=== PATIENT | female | born 1990 | race Caucasian/White ===

== ENCOUNTER 2020-07-20 12:40 | Outpatient (REF) | payer OTHER, SELFPAY ==
[2020-07-21 11:20] LABS: CT PCR NOT DETECTED (Not Detect.); NG PCR NOT DETECTED (Not Detect.)
== END 2020-07-20 12:41 | disposition home or self-care (01) ==
LOC: HO.LNP 12:40
PROVIDERS: PCP Internal Medicine; Referring Provider Internal Medicine; Visit Provider Advanced Practice Midwife
DX: Z01.419 Encounter for gynecological examination (general) (routine) without abnormal findings (principal); N94.6 Dysmenorrhea, unspecified; F17.210 Nicotine dependence, cigarettes, uncomplicated; Z11.8 Encounter for screening for other infectious and parasitic diseases; Z11.3 Encounter for screening for infections with a predominantly sexual mode of transmission
CPT/HCPCS: 87491; 87591

== ENCOUNTER 2020-09-17 12:48 | Outpatient (REF) | payer OTHER, SELFPAY ==
[2020-09-17 13:29] LABS: Basophils Absolute Auto 0.1 X10*3/uL (0.0-0.2); Basophils Percent Auto 0.8 % (0-2); Eosinophils Percent Auto 0.6 % (0-4); Hematocrit 36.9 % (37-47); Imm Gran Abs Auto 0.01 X10*3/uL (0.00-0.03); Imm Gran Pct Auto 0.2 % (0.0-0.4); Lymphocytes Absolute Auto 1.5 X10*3/uL (1.2-4.9); Lymphocytes Percent Auto 23.7 % (20-40); MANUAL DIFF FLAG NO; Mean Corpuscular HGB Conc 35.2 g/dl (31.0-35.0); Mean Corpuscular Hemoglobin 29.1 pg (27.0-33.0); Mean Corpuscular Volume 82.6 fL (80-98); Mean Platelet Volume 11.4 fL (9.4-12.3); Monocytes Absolute Auto 0.4 X10*3/uL (0.1-1.2); Monocytes Percent Auto 6.6 % (2-11); Neutrophils Absolute Auto 4.4 X10*3/uL (2.0-8.3); Neutrophils Percent Auto 68.1 % (45-73); Platelet Count 207 X10*3/uL (160-400); Red Blood Count 4.47 X10*6/uL (4.20-5.50); Red Cell Distribution Width 13.2 % (11.0-16.0); White Blood Count 6.5 X10*3/uL (4.8-10.8)
[2020-09-17 13:53] LABS: Alanine Aminotransferase 10 U/L (0-31); Albumin Level 4.6 g/dL (3.5-5.0); Alkaline Phosphatase 78 U/L (39-117); Anion Gap 10 (12-20); Aspartate Amino Transferase 12 U/L (5-31); Bilirubin Total 0.4 mg/dL (0.0-1.0); Blood Urea Nitrogen 8 mg/dL (9-16); Calcium 8.9 mg/dL (8.4-10.2); Carbon Dioxide 25 mmol/L (22-29); Chloride 111 mmol/L (96-108); Cholesterol 172 mg/dL; Estimated Glomerular Filt Rate > 60; Glucose Fasting 93 mg/dL (60-99); HDL Cholesterol 62 mg/dL; LDL Cholesterol Calculated 100 mg/dl; Potassium 3.8 mmol/l (3.3-5.1); Sodium 142 mmol/L (135-145); Total Protein 7.2 g/dL (6.5-8.0); Triglycerides 51 mg/dL
== END 2020-09-17 12:49 | disposition home or self-care (01) ==
LOC: HO.LAB 12:48
PROVIDERS: PCP Internal Medicine; Visit Provider Internal Medicine
DX: E11.9 Type 2 diabetes mellitus without complications (principal); Z00.00 Encounter for general adult medical examination without abnormal findings
CPT/HCPCS: 36415; 80053; 80061; 85025

== ENCOUNTER 2021-02-18 07:59 | Outpatient (REF) | payer OTHER, SELFPAY ==
[2021-02-18 15:15] LABS: CT PCR NOT DETECTED (Not Detect.); NG PCR NOT DETECTED (Not Detect.)
[2021-02-19 08:48] LABS: BV Int Neg Control Negative (Negative); BV Int Pos Control Positive (Positive)
== END 2021-02-18 08:00 | disposition home or self-care (01) ==
LOC: HO.LAB 07:59
PROVIDERS: PCP Internal Medicine; Visit Provider Advanced Practice Midwife
DX: R30.0 Dysuria (principal); R10.2 Pelvic and perineal pain; N89.8 Other specified noninflammatory disorders of vagina; F17.210 Nicotine dependence, cigarettes, uncomplicated
CPT/HCPCS: 81003; 81025; 87480; 87491; 87510; 87591; 87660; 99212

== ENCOUNTER 2021-04-30 20:51 | Emergency (ER) | payer OTHER, SELFPAY ==
--- NOTE | ~2021-04-30 | XR_ITS ---
EXAMINATION: XR ANKLE, RIGHT CLINICAL INFORMATION: Pain status post trauma COMPARISON: None TECHNIQUE: AP, lateral, and mortise views of the right ankle. FINDINGS: Mild anterior soft tissue swelling. The alignment is normal. No fracture, dislocation or acute osseous abnormalities. XR/XR ankle RT min 3V IMPRESSION: Mild soft tissue swelling. No acute fracture or dislocation is seen.
[2021-04-30 20:57] VITALS: BP 140/76; PULSE 92; RESP 18; TEMP 36.4; O2SAT 98; BMI 38.5
--- NOTE | 2021-04-30 22:08 | ED_ITS ---
HPI - Extremity Injury (Lower) General Chief Complaint: Extremity Injury, Lower Stated Complaint: ankle inj Time Seen by Provider: 04/30/21 21:55 Source: patient and other (hospitality workers) Mode of arrival: ambulatory Limitations: no limitations History of Present Illness complaint: ankle injury Onset (ago): minute(s) (Prior to arrival) Injury: Left: ankle Type of Injury: other (She was playing basketball and she twisted her ankle) Place: street/outdoors Severity: mild Relieving factors: nothing Exacerbating factors: weight bearing, movement and palpation Context: jumping Associated symptoms: swelling Other symptoms: none Related Data Home Medications Medication Instructions Recorded Confirmed ibuprofen 600 mg tablet 600 mg PO TID 07/03/20 02/18/21 ondansetron 8 mg disintegrating mg PO 07/03/20 02/18/21 tablet ondansetron HCl 4 mg tablet mg PO 07/03/20 02/18/21 oxcarbazepine 600 mg tablet 600 mg PO BID 07/03/20 02/18/21 psyllium husk (with sugar) 3.4 PO 07/03/20 02/18/21 gram/12 gram oral powder sumatriptan succinate 50 mg tablet mg PO 07/03/20 02/18/21 topiramate 25 mg tablet 25 mg PO BID 07/03/20 02/18/21 trazodone 300 mg tablet 300 mg PO BEDTIME 07/03/20 02/18/21 Previous Rx's Medication Instructions Recorded multivitamin 1 tab PO DAILY #90 tab 08/17/20 naproxen sodium 550 mg tablet 550 mg PO BID PRN #30 tab 09/16/20 norethindrone (contraceptive) 0.35 0.35 mg PO DAILY #28 tab 09/16/20 mg tablet albuterol sulfate 90 mcg/actuation 2 puff INHALATION Q4-6H PRN #8.5 g 12/10/20 aerosol inhaler fluconazole 150 mg tablet 150 mg PO ONCE PRN 1 Days #1 tab 02/18/21 (Diflucan) loratadine 10 mg tablet 10 mg PO DAILY #90 tab 04/27/21 omeprazole 40 mg capsule,delayed 40 mg PO DAILY #90 cap 04/27/21 release albuterol sulfate 2.5 mg INHALATION Q6-8H #75 ml 04/28/21 Allergies Allergy/AdvReac Type Severity Reaction Status Date / Time sulindac [SULINDAC] Allergy Severe SWELLING Verified 04/30/21 20:57 amoxicillin [AMOXICILLIN] Allergy Unknown ANAPHYLAXIS, Verified 04/30/21 20:57 swelling, swelling penicillin G Allergy Unknown swelling Verified 04/30/21 20:57 penicillin V Allergy Unknown swelling Verified 04/30/21 20:57 Penicillins [PENICILLINS] Allergy Unknown ANAPHYLAXIS Verified 04/30/21 20:57 polyethylene glycol 3350 Allergy Unknown ANAPHYLAXIS Verified 04/30/21 20:57 [From MIRALAX] senna Allergy Unknown Unknown Verified 04/30/21 20:57 Review of Systems Review of Systems: Constitutional : No changes in activity, No lethargy, No recent prior head injury, No agitation, No increased fussiness ENT/Mouth : No Ear Pain, No Nasal discharge/drainage Eyes: No Eye Pain, No Swelling, No Redness, No Foreign Body, No Vision Changes Cardiovascular : No Chest Pain, No SOB Respiratory : No Cough Gastrointestinal : No Nausea, No Vomiting, No abdominal Pain Genitourinary : No Dysuria, No Urinary Frequency, No Urinary Incontinence, No Urgency, No Flank Pain Musculoskeletal : + joint pain, No neck stiffness, No back pain/injury Skin : No lacerations Neuro : No unsteady gait, No Paresthesias, No Loss of Consciousness, No altered mental status, No Headache Yes all other systems are reviewed and are negative REPLACED BY [facility] Past Medical History Attestation statement: The following information was validated with the patient. Medical History ADHD Anxiety Asthma Benign tumor of breast Depression Dysmenorrhea Mood disorder Prosthetic eye globe Smoker Surgical History History of benign neoplasm of breast History of eye surgery Family History Family History Mother No problems noted. Father No problems noted. Brother No problems noted. Brother No problems noted. Maternal Aunt Breast cancer Social History Social History Alcohol intake: never Cigarettes Per Day: 15 Advance Directives: No Advance Directives Information Provided: Yes Patient : No Gender identity: female Physical Exam Vital Signs: Vital Signs: Last Vital Signs Temp 97.6 F 04/30/21 20:57 Pulse 92 04/30/21 20:57 Resp 18 04/30/21 20:57 BP 140/76 H 04/30/21 20:57 Pulse Ox 98 04/30/21 20:57 Body Mass Index 38.5 vital signs have been reviewed as normal and appeared to be correct. Blood pressure normal. Heart rate normal. Respiration rate normal. Temperature normal. Oxygen saturation normal. Appearance: Alert. Oriented X3. No acute distress. Head: Normal external exam. Normocephalic. Atraumatic. Eyes: PERRLA. EOMI. Conjunctiva and sclera normal. Eyelids normal. ENT:Pharynx normal. Uvula midline. Moist mucous membranes. Neck: Normal inspection. Neck supple. FROM. CVS: Normal heart rate and rhythm. Respiratory: No respiratory distress. Painless inspiration. Back: Full range of motion noted. No rashes/lesion/induration/fluctuance or signs of infection noted. Skin: Skin warm and dry. Normal skin color. Normal skin turgor. No rashes/lesions/lacerations noted. Extremities: Patient with tenderness to palpation to right ankle at the lateral malleolus with mild soft tissue swelling. No obvious ligamentous laxity is noted. No obvious deformities noted. Otherwise all other extremities normal range of motion and nontender. Neuro: Oriented X 3. No motor deficit. No sensory deficit. Reflexes normal. Normal steady gait. No focal neuro deficits noted. Vascular: + radial pulses/+ 2 distal pedal pulses/+2 dorsalis pedis b/l. Normal cap refill. No cyanosis noted to upper extremity nails and lower extremity toes nails. Course Course Course Narrative: Patient coming from senior living with staff worker at bedside with complaints of right ankle pain/swelling after she twisted her foot ankle/foot while playing basketball outdoors prior to arrival. Denies head injury or loss of consciousness. Is able to ambulate without any difficulty. X-ray obtained and negative for any acute processes. Therefore I placed the patient in Bartolome wrap and will DC home with instructions return if any new or worsening symptoms to follow up with Orthopedics if not persist for longer than 2-3 weeks. She reports she already has Motrin and does not need any other symptomatic treatment. Along instructions to return if any new or worsening symptoms and patient understands agrees with this plan. Discharge Plan Discharge Clinical Impression: Ankle sprain and strain Patient Disposition: Home, Self-Care Instructions: Ankle Sprain (ED), How to Use an Elastic Bandage (ED) Prescriptions: No Action multivitamin Tablet 1 tab PO DAILY Qty: 90 RF: 8 naproxen sodium 550 mg tablet 550 mg PO BID PRN (Reason: pain) Qty: 30 RF: 1 norethindrone (contraceptive) 0.35 mg tablet 0.35 mg PO DAILY Qty: 28 RF: 11 albuterol sulfate 90 mcg/actuation HFA aerosol inhaler 2 puff inhalation Q4-6H PRN (Reason: bronchospasm) Qty: 8.5 RF: 8 omeprazole 40 mg capsule,delayed release(DR/EC) 40 mg PO DAILY Qty: 90 RF: 8 loratadine 10 mg tablet 10 mg PO DAILY Qty: 90 RF: 8 albuterol sulfate 2.5 mg /3 mL (0.083 %) solution for nebulization 2.5 mg inhalation Q6-8H Qty: 75 RF: 8 ibuprofen 600 mg tablet 600 mg PO TID RF: 0 topiramate 25 mg tablet 25 mg PO BID RF: 0 ondansetron HCl 4 mg tablet PO RF: 0 ondansetron 8 mg tablet,disintegrating PO RF: 0 trazodone 300 mg tablet 300 mg PO BEDTIME RF: 0 oxcarbazepine 600 mg tablet 600 mg PO BID RF: 0 sumatriptan succinate 50 mg tablet PO RF: 0 Reguloid (psyllium husk-sucro) 3.4 gram/12 gram powder PO RF: 0 fluconazole [Diflucan] 150 mg tablet 150 mg PO ONCE PRN (Reason: personal) 1 Days Qty: 1 RF: 0 Referrals: Imani Drew MD [Physician] - 2 weeks (If symptoms persist)
== END 2021-04-30 22:18 | disposition home or self-care (01) ==
PROVIDERS: Emergency Provider Emergency Medicine Emergency Medical Services; PCP Internal Medicine
DX: S93.401A Sprain of unspecified ligament of right ankle, initial encounter (principal); S96.911A Strain of unspecified muscle and tendon at ankle and foot level, right foot, initial encounter; X50.1XXA Overexertion from prolonged static or awkward postures, initial encounter; Y93.67 Activity, basketball; Y92.310 Basketball court as the place of occurrence of the external cause; Y99.9 Unspecified external cause status
CPT/HCPCS: 73610; 99283

== ENCOUNTER 2021-07-06 10:42 | Outpatient (REF) | payer OTHER, SELFPAY ==
[2021-07-06 11:52] LABS: MANUAL DIFF FLAG NO
[2021-07-06 12:05] LABS: Basophils Percent Auto 0.6 % (0-2); Eosinophils Absolute Auto 0.1 X10*3/uL (0.0-0.4); Eosinophils Percent Auto 0.8 % (0-4); Hematocrit 37.6 % (37-47); Hemoglobin 12.6 g/dl (12.0-16.0); Imm Gran Abs Auto 0.01 X10*3/uL (0.00-0.03); Imm Gran Pct Auto 0.2 % (0.0-0.4); Lymphocytes Absolute Auto 1.5 X10*3/uL (1.2-4.9); Lymphocytes Percent Auto 24.4 % (20-40); Mean Corpuscular HGB Conc 33.5 g/dl (31.0-35.0); Mean Corpuscular Volume 83.6 fL (80-98); Mean Platelet Volume 11.4 fL (9.4-12.3); Monocytes Absolute Auto 0.4 X10*3/uL (0.1-1.2); Monocytes Percent Auto 6.3 % (2-11); Neutrophils Absolute Auto 4.2 X10*3/uL (2.0-8.3); Neutrophils Percent Auto 67.7 % (45-73); Platelet Count 202 X10*3/uL (160-400); Red Cell Distribution Width 13.1 % (11.0-16.0); White Blood Count 6.2 X10*3/uL (4.8-10.8)
[2021-07-06 12:25] LABS: Alanine Aminotransferase 10 U/L (0-31); Anion Gap 12 (12-20); Aspartate Amino Transferase 14 U/L (5-31); Blood Urea Nitrogen 12 mg/dL (9-16); Calcium 9.1 mg/dL (8.4-10.2); Carbon Dioxide 23 mmol/L (22-29); Chloride 110 mmol/L (96-108); Cholesterol 197 mg/dL; Estimated Glomerular Filt Rate > 60; Glucose Fasting 87 mg/dL (60-99); HDL Cholesterol 63 mg/dL; LDL Cholesterol Calculated 122 mg/dl; Potassium 4.1 mmol/L (3.3-5.1); Sodium 141 mmol/L (135-145); Triglycerides 64 mg/dL
== END 2021-07-06 10:43 | disposition home or self-care (01) ==
LOC: HO.HMGCLDS 10:42
PROVIDERS: PCP Internal Medicine; Visit Provider Internal Medicine
DX: Z00.00 Encounter for general adult medical examination without abnormal findings (principal); E66.9 Obesity, unspecified; I10 Essential (primary) hypertension
CPT/HCPCS: 36415; 80048; 80061; 84450; 84460; 85025

== ENCOUNTER 2021-07-26 12:51 | Outpatient (REF) | payer OTHER, SELFPAY ==
[2021-07-27 02:34] LABS: CT PCR NOT DETECTED (Not Detect.); NG PCR NOT DETECTED (Not Detect.)
[2021-07-27 09:24] LABS: BV Int Neg Control Negative (Negative); BV Int Pos Control Positive (Positive)
== END 2021-07-26 12:52 | disposition home or self-care (01) ==
LOC: HO.LAB 12:51
PROVIDERS: PCP Internal Medicine; Visit Provider Advanced Practice Midwife
DX: Z01.411 Encounter for gynecological examination (general) (routine) with abnormal findings (principal); Z11.3 Encounter for screening for infections with a predominantly sexual mode of transmission; N89.8 Other specified noninflammatory disorders of vagina; N94.6 Dysmenorrhea, unspecified; Z20.2 Contact with and (suspected) exposure to infections with a predominantly sexual mode of transmission
CPT/HCPCS: 87480; 87491; 87510; 87591; 87660; 88142

== ENCOUNTER → 2021-09-09 11:53 | Outpatient (BNVA) | payer OTHER, SELFPAY | PROVIDERS: PCP Internal Medicine; Visit Provider Obstetrics & Gynecology | DX: Z30.430 Encounter for insertion of intrauterine contraceptive device (principal) | CPT/HCPCS: 58300 ==

== ENCOUNTER → 2021-10-07 14:31 | Outpatient (BNVA) | payer OTHER, SELFPAY | PROVIDERS: PCP Internal Medicine; Visit Provider Obstetrics & Gynecology | DX: Z30.431 Encounter for routine checking of intrauterine contraceptive device (principal) | CPT/HCPCS: 99212 ==

== ENCOUNTER 2021-11-29 13:09 | Outpatient (REF) | payer OTHER, SELFPAY ==
[2021-11-29 17:21] LABS: CT PCR NOT DETECTED (Not Detect.); NG PCR NOT DETECTED (Not Detect.)
[2021-11-30 09:45] LABS: BV Int Neg Control Negative (Negative); BV Int Pos Control Positive (Positive)
== END 2021-11-29 13:10 | disposition home or self-care (01) ==
LOC: HO.LAB 13:09
PROVIDERS: PCP Internal Medicine; Visit Provider Advanced Practice Midwife
DX: R10.2 Pelvic and perineal pain (principal); T83.32XA Displacement of intrauterine contraceptive device, initial encounter; R30.0 Dysuria; Z20.2 Contact with and (suspected) exposure to infections with a predominantly sexual mode of transmission; N89.8 Other specified noninflammatory disorders of vagina
CPT/HCPCS: 81003; 81025; 87480; 87491; 87510; 87591; 87660; 99212

== ENCOUNTER 2021-12-30 13:22 | Emergency (ER) | payer OTHER, SELFPAY ==
[2021-12-30 14:34] VITALS: BP 158/92; PULSE 82; RESP 18; TEMP 36.5; O2SAT 100; BMI 34.2
--- NOTE | 2021-12-30 15:44 | ED_ITS ---
HPI - Head Injury General Chief complaint: Head Injury Stated complaint: head inj at program Time Seen by Provider: 12/30/21 14:40 History of Present Illness HPI Narrative: Patient comes with complaint of bumping or forehead this morning in her retirement, it is required that any head injury gets checked but she denies any symptoms she has no headache no dizziness no confusion, she did feel dizzy briefly right after the head bump which was for 5 hours ago Related Data Home Medications Medication Instructions Recorded Confirmed sumatriptan succinate 50 mg tablet mg PO 07/03/20 10/14/21 trazodone 300 mg tablet 300 mg PO BEDTIME 07/03/20 10/14/21 polyvinyl alcohol 1.4 % eye drops drp OPHTHALMIC (EYE) 07/06/21 10/14/21 (Artificial Tears (polyvinyl alcohol)) topiramate 50 mg tablet 50 mg PO BID 07/06/21 10/14/21 melatonin 5 mg tablet 5 mg PO BEDTIME 07/26/21 10/14/21 oxcarbazepine 600 mg tablet 600 mg PO BID 07/26/21 10/14/21 (Trileptal) levonorgestrel 20 mcg/24 hours (7 INTRAUTERINE DAILY 11/29/21 yrs) 52 mg intrauterine device (Mirena) Previous Rx's Medication Instructions Recorded albuterol sulfate 90 mcg/actuation 2 puff INHALATION Q4-6H PRN #8.5 g 12/10/20 aerosol inhaler loratadine 10 mg tablet 10 mg PO DAILY #90 tab 04/27/21 omeprazole 40 mg capsule,delayed 40 mg PO DAILY #90 cap 04/27/21 release albuterol sulfate 2.5 mg (3 mL) INHALATION Q6-8H #75 04/28/21 ml ondansetron 8 mg disintegrating 8 mg PO ONCE #30 tab 07/05/21 tablet dextromethorphan-guaifenesin 5 10 ml PO Q8H PRN #118 ml 07/06/21 mg-100 mg/5 mL oral liquid (Robitussin Cough-Chest Congestion DM) dimenhydrinate 50 mg tablet 50 mg PO .qd PRN #30 tab 07/06/21 (Dramamine) naproxen sodium 550 mg tablet 550 mg PO BID PRN #30 tab 07/26/21 multivitamin 1 tab PO DAILY #90 tab 08/17/21 psyllium husk (with sugar) 3 1 tsp PO DAILY #538 g 12/25/21 gram/7 gram oral powder (Reguloid (psyllium husk-sucrose)) Allergies Allergy/AdvReac Type Severity Reaction Status Date / Time amoxicillin [AMOXICILLIN] Allergy Severe ANAPHYLAXIS, Verified 12/30/21 14:34 swelling, swelling Penicillins [PENICILLINS] Allergy Severe ANAPHYLAXIS Verified 12/30/21 14:34 polyethylene glycol 3350 Allergy Severe ANAPHYLAXIS Verified 12/30/21 14:34 [From MIRALAX] sulindac [SULINDAC] Allergy Severe SWELLING Verified 12/30/21 14:34 senna Allergy Unknown Unknown Verified 11/29/21 13:12 Review of Systems Review of Systems: Positive for brief episode of dizziness after bumping her head Negatives are no loss of consciousness no headache no confusion no dazed no retrograde amnesia no nausea no vomiting no vision changes no neck pain no shortness of breath no extremity pains or injuries no numbness weakness or tingling Yes all other systems are reviewed and are negative PMFSH Past Medical History Source: nursing notes reviewed Medical History Asthma Benign tumor of breast Cigarette smoker motivated to quit Depression Depression with anxiety Dysmenorrhea Encounter for smoking cessation counseling Ex-cigarette smoker Heel callus History of cigarette smoking Migraine Mild intellectual disability Mild intermittent asthma in adult without complication Motion sickness Need for pneumococcal vaccination Obesity Porcelain gallbladder Prosthetic eye globe Smoker Surgical History History of benign neoplasm of breast History of eye surgery Family History Family History Mother No problems noted. Father No problems noted. Brother No problems noted. Brother No problems noted. Maternal Aunt Breast cancer Social History Social History Housing: Apartment Alcohol intake: never Patient Tobacco Use Status: Former Tobacco user Tobacco use type: Cigarette Cigarettes Per Day: 0 e-Cigarette/Vaping Use: Never Used Second Hand Smoke Exposure: No Advance Directives: No Advance Directives Information Provided: No Patient : No service: No 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al status: disabled Gender identity: Female Physical Exam Vital Signs: Vital Signs: Last Vital Signs Temp 97.7 F 12/30/21 14:34 Pulse 82 12/30/21 14:34 Resp 18 12/30/21 14:34 BP 141/84 H 12/30/21 15:51 Pulse Ox 100 12/30/21 14:34 BMI result Body Mass Index 34.2 General appearance comfortable relax cooperative no acute distress Head is normocephalic atraumatic The ears no hemotympanum The eyes pupils equal round reactive to light Extraocular motions are intact Facial exam there is no significant tenderness or bruising on the forehead Scalp exam there are no defects no hematomas Neck is supple Respiratory no distress Extremities full range of motion x4 Neuro cranial nerves 2-12 intact as tested, gait and balance are normal, interaction both expression and comprehension are normal, motor is 5/5 x4, and cessation is intact and symmetrical, cerebellar exam is normal Course Course Course Narrative: Well-appearing asymptomatic patient all negative per [facility] head CT rule is discharged Discharge Plan Discharge Clinical Impression: Contusion of forehead, Elevated blood pressure reading Patient Disposition: Home, Self-Care Additional Instructions: There is no sign of any dangerous head injury or brain bleed Your blood pressure was elevated here so it is a good plan to check it with a cuff at home and follow with primary doctor to make sure you will not developed high blood pressure One reading in the ER is often elevated because of stress so best plan is to get it checked and a calm environment Return to ER any time for vomiting, severe worsening headache, confusion any worse condition or any concerns Prescriptions: No Action albuterol sulfate 90 mcg/actuation HFA aerosol inhaler 2 puff inhalation Q4-6H PRN (Reason: bronchospasm) Qty: 8.5 8RF omeprazole 40 mg capsule,delayed release(DR/EC) 40 mg PO DAILY Qty: 90 8RF loratadine 10 mg tablet 10 mg PO DAILY Qty: 90 8RF albuterol sulfate 2.5 mg /3 mL (0.083 %) solution for nebulization 2.5 mg inhalation Q6-8H Qty: 75 8RF ondansetron 8 mg tablet,disintegrating 8 mg PO ONCE Qty: 30 8RF multivitamin Tablet 1 tab PO DAILY Qty: 90 3RF Reguloid (psyllium husk-sucro) 3 gram/7 gram powder 1 tsp PO DAILY Qty: 538 0RF trazodone 300 mg tablet 300 mg PO BEDTIME 0RF sumatriptan succinate 50 mg tablet PO 0RF topiramate 50 mg tablet 50 mg PO BID 0RF polyvinyl alcohol [Artificial Tears (polyvin alc)] 1.4 % drops ophthalmic (eye) 0RF dimenhydrinate [Dramamine] 50 mg tablet 50 mg PO .qd PRN (Reason: motion sickness) Qty: 30 0RF Robitussin Cough-Chest Robin DM 5-100 mg/5 mL liquid 10 ml PO Q8H PRN (Reason: cough) Qty: 118 1RF melatonin 5 mg tablet 5 mg PO BEDTIME 0RF oxcarbazepine [Trileptal] 600 mg tablet 600 mg PO BID 0RF naproxen sodium 550 mg tablet 550 mg PO BID PRN (Reason: pain) Qty: 30 1RF Rx Instructions: take one tablet BID for the first few days of cramping with menses, then stop. Repeat as needed each cycle Mirena 20 mcg/24 hours (7 yrs) 52 mg intrauterine device intrauterine DAILY 0RF Interventions: ED Discharge Assessment Last Done: 12/30/21 16:07 Discharge Date/Time: 12/30/21 16:07
[2021-12-30 15:51] VITALS: BP 141/84
== END 2021-12-30 16:07 | disposition home or self-care (01) ==
LOC: HO.ED 15:50
PROVIDERS: Emergency Provider Emergency Medicine; PCP Internal Medicine
DX: S00.83XA Contusion of other part of head, initial encounter (principal); W22.8XXA Striking against or struck by other objects, initial encounter; R03.0 Elevated blood-pressure reading, without diagnosis of hypertension; Y93.9 Activity, unspecified; Y92.049 Unspecified place in boarding-house as the place of occurrence of the external cause; Y99.9 Unspecified external cause status
CPT/HCPCS: 99282; 99284

== ENCOUNTER 2021-12-31 15:26 | Outpatient (REF) | payer OTHER, SELFPAY ==
--- NOTE | ~2021-12-31 | US_ITS ---
EXAMINATION: US PELVIS CLINICAL INFORMATION: Check IUD COMPARISON: None previous CT of the abdomen and pelvis August 2019 TECHNIQUE: Ultrasound of the pelvis is performed using both transabdominal and transvaginal transducers along with Doppler. Transvaginal imaging is performed due to inadequate visualization transabdominally. FINDINGS: The uterus is anteverted and measures 7.4 x 3.4 x 5 cm in dimension. There is an IUD in the uterus and satisfactory position. The endometrium is not well visualized separate from the IUD but does not appear thickened. No focal uterine lesion is seen. The right ovary is slightly enlarged measuring 4.6 x 1.9 x 4.7 cm. There is a 2.5 x 2.6 x 2.5 cm slightly complex right ovarian cyst with slightly thickened wall and peripheral septations. The left ovary is normal-appearing and measures 3.6 x 1.7 x 1.6 cm. There is a small amount of fluid in the pelvis. US/US pelvic and transvaginal IMPRESSION: Satisfactory position of IUD.
== END 2021-12-31 15:27 | disposition home or self-care (01) ==
LOC: HO.US 15:26
PROVIDERS: PCP Internal Medicine; Visit Provider Advanced Practice Midwife
DX: R10.2 Pelvic and perineal pain (principal)
CPT/HCPCS: 76830; 76856

== ENCOUNTER → 2022-01-14 10:48 | Outpatient (BNVA) | payer OTHER, SELFPAY | PROVIDERS: PCP Internal Medicine; Visit Provider Advanced Practice Midwife | DX: N83.299 Other ovarian cyst, unspecified side (principal); R10.2 Pelvic and perineal pain; Z71.2 Person consulting for explanation of examination or test findings | CPT/HCPCS: 99212 ==

== ENCOUNTER 2022-04-27 10:48 | Outpatient (REF) | payer OTHER, SELFPAY ==
--- NOTE | ~2022-04-27 | US_ITS ---
EXAMINATION: US PELVIS CLINICAL INFORMATION: Ovarian cyst. COMPARISON: None. TECHNIQUE: Ultrasound of the pelvis is performed using both transabdominal and transvaginal transducers along with Doppler. Transvaginal imaging is performed due to inadequate visualization transabdominally. FINDINGS: UTERUS: The uterus is anteverted and measures 10.0 x 4.2 x 4.7 cm. The double wall endometrial thickness is not visualized due to IUD in place. The uterus is smooth in contour and has normal myometrial echogenicity. No visible fibroid. There is minimal fluid in the cervix. ADNEXA: Both ovaries are visualized. There is normal color flow to the adnexa. There is no ovarian torsion. There is no pelvic ascites or fluid collection. RIGHT OVARY: Measures 3.9 x 1.3 x 2.0 cm and volume 5.3 mL. No focal lesion seen. Previously it measured 4.6 x 1.9 x 4.7 cm. LEFT OVARY: Measures 2.5 x 1.4 x 1.5 cm and volume 2.8 mL. No focal lesion seen. Previously it measured 3.6 x 1.7 x 1.6 cm. US/US pelvic and transvaginal IMPRESSION: Minimal fluid in the cervix otherwise unremarkable uterus and ovaries. There is an IUD within the endometrial canal in correct position.
== END 2022-04-27 10:49 | disposition home or self-care (01) ==
LOC: HO.US 10:48
PROVIDERS: Visit Provider Advanced Practice Midwife
DX: N83.291 Other ovarian cyst, right side (principal)
CPT/HCPCS: 76830; 76856

== ENCOUNTER → 2022-05-11 15:28 | Outpatient (BNVA) | payer OTHER, SELFPAY | PROVIDERS: PCP Internal Medicine; Visit Provider Advanced Practice Midwife | DX: Z71.2 Person consulting for explanation of examination or test findings (principal); R10.2 Pelvic and perineal pain | CPT/HCPCS: 99212 ==

== ENCOUNTER 2022-07-07 14:06 | Outpatient (REF) | payer OTHER, SELFPAY ==
[2022-07-08 10:25] LABS: BV Int Neg Control Negative (Negative); BV Int Pos Control Positive (Positive)
== END 2022-07-07 14:07 | disposition home or self-care (01) ==
LOC: HO.LNP 14:06
PROVIDERS: Visit Provider Internal Medicine
DX: R30.0 Dysuria (principal); N89.8 Other specified noninflammatory disorders of vagina
CPT/HCPCS: 87480; 87510; 87660

== ENCOUNTER 2022-07-27 13:59 | Outpatient (REF) | payer OTHER, SELFPAY ==
[2022-07-27 16:51] LABS: Alanine Aminotransferase 10 U/L (0-31); Anion Gap 14 (12-20); Aspartate Amino Transferase 13 U/L (5-31); Blood Urea Nitrogen 8 mg/dL (9-16); Calcium 9.3 mg/dL (8.4-10.2); Carbon Dioxide 22 mmol/L (22-29); Chloride 111 mmol/L (96-108); Cholesterol 200 mg/dL; Estimated Glomerular Filt Rate > 60; Glucose Fasting 79 mg/dL (60-99); HDL Cholesterol 66 mg/dL; LDL Cholesterol Calculated 120 mg/dl; Potassium 3.9 mmol/L (3.3-5.1); Sodium 143 mmol/L (135-145); Triglycerides 71 mg/dL
[2022-07-27 17:11] LABS: TSH reflex Free T4 0.81 uIU/mL (0.32-4.0); Vitamin D 25-OH Total 19.6 ng/mL (>30)
== END 2022-07-27 14:00 | disposition home or self-care (01) ==
LOC: HO.HMGCLDS 13:59
PROVIDERS: PCP Internal Medicine; Visit Provider Internal Medicine
DX: Z00.01 Encounter for general adult medical examination with abnormal findings (principal); E66.9 Obesity, unspecified; K82.8 Other specified diseases of gallbladder
CPT/HCPCS: 36415; 80048; 80061; 82306; 84443; 84450; 84460

== ENCOUNTER 2022-07-28 13:23 | Outpatient (REF) | payer OTHER, SELFPAY ==
[2022-07-28 17:25] LABS: CT PCR NOT DETECTED (Not Detect.); NG PCR NOT DETECTED (Not Detect.)
[2022-08-02 16:02] LABS: HPV mRNA E6/E7 rflx Not Detected (Not Detected)
== END 2022-07-28 13:24 | disposition home or self-care (01) ==
LOC: HO.LNP 13:23
PROVIDERS: Visit Provider Advanced Practice Midwife
DX: Z01.419 Encounter for gynecological examination (general) (routine) without abnormal findings (principal); Z11.51 Encounter for screening for human papillomavirus (HPV); Z20.2 Contact with and (suspected) exposure to infections with a predominantly sexual mode of transmission
CPT/HCPCS: 87491; 87591; 87624; 88142

== ENCOUNTER 2022-08-05 10:20 | Outpatient (REF) | payer OTHER, SELFPAY ==
[2022-08-05 12:41] LABS: Syphilis Screen Nonreactive (Nonreactive)
[2022-08-08 05:02] LABS: HBc Num1 0.12 S/CO (0.00-0.79); HIV AB/AG Nonreactive (Nonreactive); Hepatitis B Core Antibody Nonreactive (Nonreactive); ~HepC Num1 0.07 S/CO (0.00-0.79); ~Hepatitis C Antibody Nonreactive (Nonreactive)
== END 2022-08-05 10:21 | disposition home or self-care (01) ==
LOC: HO.HMGCLDS 10:20
PROVIDERS: PCP Internal Medicine; Visit Provider Advanced Practice Midwife
DX: Z11.4 Encounter for screening for human immunodeficiency virus [HIV] (principal); Z11.3 Encounter for screening for infections with a predominantly sexual mode of transmission; Z20.2 Contact with and (suspected) exposure to infections with a predominantly sexual mode of transmission
CPT/HCPCS: 36415; 86704; 86780; 86803; 87389

== ENCOUNTER → 2022-12-12 10:05 | Outpatient (BNVA) | payer OTHER, SELFPAY | PROVIDERS: PCP Internal Medicine; Visit Provider Surgery | DX: K64.9 Unspecified hemorrhoids (principal); R10.9 Unspecified abdominal pain | CPT/HCPCS: 46600; 99202 ==

== ENCOUNTER 2022-12-22 09:30 | Outpatient (REF) | payer OTHER, SELFPAY ==
--- NOTE | ~2022-12-22 | CT_ITS ---
EXAMINATION: CT ABDOMEN AND PELVIS WITH CONTRAST CLINICAL INFORMATION: Abdominal pain COMPARISON: Previous pelvic ultrasound most recent April [address] of the abdomen and pelvis August 2019 TECHNIQUE: Multidetector volumetric images were obtained from the superior aspect of the liver through the pubic symphysis following administration 85 mL of Omnipaque 350 intravenous contrast. Sagittal and coronal reformatted images were obtained on the technologist's workstation. Oral contrast: Yes This CT examination was performed using dose optimization techniques as appropriate, variously including the following: *Automated exposure control *Adjustment of mA and/or kV according to patient size (this includes techniques or standardized protocols for targeted exams where dose is matched to indication/reason for exam; i.e. extremities or head) *Use of iterative reconstruction technique DLP: 525 mGy-cm FINDINGS: LUNG BASES: The visualized lung bases are unremarkable. LIVER, GALLBLADDER, AND BILIARY TREE: The liver is normal in size, shape, and attenuation. No focal hepatic lesion or biliary ductal dilatation is present. Low-attenuation in the gallbladder probably representing a cholesterol gallstone. Gallbladder is otherwise unremarkable. PANCREAS: Unremarkable. SPLEEN: Unremarkable. ADRENAL GLANDS: Unremarkable. KIDNEYS AND URETERS: The kidneys are normal in size, shape, and attenuation. No hydronephrosis, hydroureter. Small 2 mm nonobstructing stone in the lower pole of the left kidney. Question tiny 1 mm stone in the upper pole of the right kidney. Small subcentimeter low-attenuation lesion in the lower pole of the right kidney probably representing a cyst. No imaging follow-up. BLADDER: Unremarkable. GASTROINTESTINAL TRACT: The small and large bowel are unremarkable. The appendix is unremarkable. ABDOMINAL WALL: No significant hernia is appreciated. LYMPH NODES: Normal. VASCULAR: Unremarkable. PELVIC VISCERA: IUD in the uterus in satisfactory position. OSSEOUS STRUCTURES: Unremarkable CT/CT abdomen pelvis w IV con IMPRESSION: Gallstone. Small bilateral renal stones. IUD in the uterus in satisfactory position. Fleischner guidelines were followed.
[2022-12-22] MEDS: iohexoL 350 MG/ML 100 ML INFUS..BTL IV (13:13)
== END 2022-12-22 09:31 | disposition home or self-care (01) ==
LOC: HO.CT 09:30
PROVIDERS: Visit Provider Internal Medicine
DX: R10.9 Unspecified abdominal pain (principal)
CPT/HCPCS: 74177; Q9967

== ENCOUNTER 2023-01-06 10:45 | Outpatient (REF) | payer OTHER, SELFPAY ==
[2023-01-06 14:19] LABS: Anion Gap 11 (12-20); Blood Urea Nitrogen 7 mg/dL (9-16); Calcium 9.1 mg/dL (8.4-10.2); Carbon Dioxide 25 mmol/L (22-29); Chloride 110 mmol/L (96-108); Estimated Glomerular Filt Rate > 60; Glucose Fasting 87 mg/dL (60-99); Sodium 142 mmol/L (135-145)
== END 2023-01-06 10:46 | disposition home or self-care (01) ==
LOC: HO.HMGCLDS 10:45
PROVIDERS: PCP Internal Medicine; Visit Provider Internal Medicine
DX: E55.9 Vitamin D deficiency, unspecified (principal); E66.9 Obesity, unspecified
CPT/HCPCS: 36415; 80048; 82306

== ENCOUNTER 2023-01-24 10:21 | Outpatient (REF) | payer OTHER, SELFPAY ==
[2023-01-24 11:31] LABS: MANUAL DIFF FLAG NO
[2023-01-24 12:12] LABS: Basophils Absolute Auto 0.1 X10*3/uL (0.0-0.2); Basophils Percent Auto 0.7 % (0-2); Eosinophils Absolute Auto 0.1 X10*3/uL (0.0-0.4); Eosinophils Percent Auto 0.7 % (0-4); Hematocrit 37.3 % (37.0-47.0); Hemoglobin 12.8 g/dl (12.0-16.0); Imm Gran Abs Auto 0.02 X10*3/uL (0.00-0.03); Imm Gran Pct Auto 0.3 % (0.0-0.4); Lymphocytes Absolute Auto 1.4 X10*3/uL (1.2-4.9); Lymphocytes Percent Auto 19.2 % (20-40); Mean Corpuscular HGB Conc 34.3 g/dl (31.0-35.0); Mean Corpuscular Hemoglobin 28.5 pg (27.0-33.0); Mean Corpuscular Volume 83.1 fL (80.0-98.0); Mean Platelet Volume 11.1 fL (9.4-12.3); Monocytes Absolute Auto 0.5 X10*3/uL (0.1-1.2); Monocytes Percent Auto 6.8 % (2-11); Neutrophils Absolute Auto 5.1 x10*3/uL (2.0-8.3); Neutrophils Percent Auto 72.3 % (45-73); Platelet Count 186 X10*3/uL (160-400); Red Blood Count 4.49 X10*6/uL (4.20-5.50); Red Cell Distribution Width 13.5 % (11.0-16.0)
[2023-01-24 12:18] LABS: Estimated Average Glucose 97 mg/dL
[2023-01-24 12:54] LABS: Alanine Aminotransferase 12 U/L (0-31); Albumin Level 4.6 g/dL (3.5-5.0); Alkaline Phosphatase 66 U/L (39-117); Anion Gap 13 (12-20); Aspartate Amino Transferase 12 U/L (5-31); Bilirubin Total 0.4 mg/dL (0.0-1.0); Blood Urea Nitrogen 10 mg/dL (9-16); Calcium 9.5 mg/dL (8.4-10.2); Carbon Dioxide 25 mmol/L (22-29); Chloride 108 mmol/L (96-108); Estimated Glomerular Filt Rate > 60; Glucose Random 85 mg/dL (60-115); Potassium 4.3 mmol/L (3.3-5.1); Sodium 142 mmol/L (135-145); Total Protein 7.1 g/dL (6.5-8.0)
== END 2023-01-24 10:22 | disposition home or self-care (01) ==
LOC: HO.LAB 10:21
PROVIDERS: PCP Internal Medicine; Referring Provider Internal Medicine; Visit Provider Surgery
DX: R10.9 Unspecified abdominal pain (principal); K80.20 Calculus of gallbladder without cholecystitis without obstruction; E66.9 Obesity, unspecified; R93.5 Abnormal findings on diagnostic imaging of other abdominal regions, including retroperitoneum; J45.20 Mild intermittent asthma, uncomplicated
CPT/HCPCS: 36415; 80053; 83036; 85025; 99202

== ENCOUNTER 2023-02-20 10:25 | Outpatient (REF) | payer OTHER, SELFPAY ==
--- NOTE | ~2023-02-20 | US_ITS ---
EXAMINATION: US ABDOMEN LIMITED CLINICAL INFORMATION: Right upper quadrant pain. COMPARISON: CT abdomen and pelvis with contrast 12/22/2022. Ultrasound abdomen complete 05/07/2019 and 05/23/2014. TECHNIQUE: Real-time imaging of the right upper quadrant abdominal viscera. FINDINGS: PANCREAS: Normal. LIVER: Normal. The liver is normal in size. The liver contour is normal. Parenchymal echogenicity is normal. No focal hepatic lesion. There is no intrahepatic biliary duct dilatation seen. GALLBLADDER: There are multiple shadowing gallstones. The gallbladder is physiologically distended without sludge, polyps, wall thickening or pericholecystic fluid. COMMON BILE DUCT: There is increased caliber of 1.1 cm. A 7 x 7 x 7 mm choledocholith is seen. RIGHT KIDNEY: At the upper pole, a 3 mm nonobstructing calculus is seen. At the lower pole, a 3 mm nonobstructing calculus is seen. There is mild hydronephrosis. The kidney measures 11.5 cm in maximum dimension. At the lower pole, a 5 mm benign, simple cyst is seen, for which no imaging follow-up is recommended. FREE FLUID: None. US/US abdomen limited IMPRESSION: 1. There is cholelithiasis and choledocholithiasis. There is secondary dilatation of the common bile duct. There is no intrahepatic biliary ductal dilatation. No cholecystitis is seen. 2. There are small right renal calculi. Mild right hydronephrosis is noted. 3. A 5 mm benign, simple right renal cyst is seen, for which no imaging follow-up is recommended.
== END 2023-02-20 10:26 | disposition home or self-care (01) ==
LOC: HO.HMGCX 10:25
PROVIDERS: PCP Internal Medicine; Visit Provider Surgery
DX: R10.11 Right upper quadrant pain (principal); K80.20 Calculus of gallbladder without cholecystitis without obstruction; E66.9 Obesity, unspecified
CPT/HCPCS: 76705

== ENCOUNTER 2023-03-03 09:17 | Outpatient (REF) | payer OTHER, SELFPAY ==
[2023-03-03 10:13] LABS: MANUAL DIFF FLAG NO
[2023-03-03 11:01] LABS: Basophils Percent Auto 0.7 % (0-2); Eosinophils Absolute Auto 0.1 X10*3/uL (0.0-0.4); Eosinophils Percent Auto 1.1 % (0-4); Hematocrit 36.4 % (37.0-47.0); Hemoglobin 12.3 g/dl (12.0-16.0); Imm Gran Abs Auto 0.02 X10*3/uL (0.00-0.03); Imm Gran Pct Auto 0.4 % (0.0-0.4); Lymphocytes Absolute Auto 1.2 X10*3/uL (1.2-4.9); Lymphocytes Percent Auto 22.5 % (20-40); Mean Corpuscular HGB Conc 33.8 g/dl (31.0-35.0); Mean Corpuscular Hemoglobin 28.1 pg (27.0-33.0); Mean Corpuscular Volume 83.3 fL (80.0-98.0); Mean Platelet Volume 11.5 fL (9.4-12.3); Monocytes Absolute Auto 0.4 X10*3/uL (0.1-1.2); Monocytes Percent Auto 6.9 % (2-11); Neutrophils Absolute Auto 3.8 x10*3/uL (2.0-8.3); Neutrophils Percent Auto 68.4 % (45-73); Platelet Count 171 X10*3/uL (160-400); Red Blood Count 4.37 X10*6/uL (4.20-5.50); Red Cell Distribution Width 13.4 % (11.0-16.0); White Blood Count 5.5 X10*3/uL (4.8-10.8)
[2023-03-03 11:57] LABS: Alanine Aminotransferase 13 U/L (0-31); Albumin Level 4.3 g/dL (3.5-5.0); Alkaline Phosphatase 64 U/L (39-117); Anion Gap 11 (12-20); Aspartate Amino Transferase 14 U/L (5-31); Bilirubin Total 0.6 mg/dL (0.0-1.0); Blood Urea Nitrogen 10 mg/dL (9-16); Calcium 9.1 mg/dL (8.4-10.2); Carbon Dioxide 26 mmol/L (22-29); Chloride 109 mmol/L (96-108); Estimated Glomerular Filt Rate > 60; Glucose Random 95 mg/dL (60-115); Lipase 24 U/L (8-78); Potassium 3.6 mmol/L (3.3-5.1); Sodium 142 mmol/L (135-145); Total Protein 6.9 g/dL (6.5-8.0)
== END 2023-03-03 09:18 | disposition home or self-care (01) ==
LOC: HO.LAB 09:17
PROVIDERS: PCP Internal Medicine; Visit Provider Surgery
DX: K80.44 Calculus of bile duct with chronic cholecystitis without obstruction (principal); K80.20 Calculus of gallbladder without cholecystitis without obstruction; E66.9 Obesity, unspecified; R93.5 Abnormal findings on diagnostic imaging of other abdominal regions, including retroperitoneum; R10.9 Unspecified abdominal pain
CPT/HCPCS: 36415; 80053; 83690; 85025; 99212

== ENCOUNTER 2023-03-06 08:52 | Outpatient (REF) | payer OTHER, SELFPAY ==
--- NOTE | ~2023-03-06 | MR_ITS ---
EXAMINATION: MR ABDOMEN WITHOUT CONTRAST CLINICAL INFORMATION: Bile duct stone COMPARISON: Previous CT of the abdomen and pelvis November 2022 and ultrasound of the abdomen January 2023 TECHNIQUE: MR abdomen is performed without gadolinium contrast. MRCP sequences were also performed FINDINGS: LUNG BASES: The visualized lung bases are unremarkable. LIVER, GALLBLADDER, AND BILIARY TREE: The liver is normal in size, smooth in contour, and normal in signal. No focal hepatic lesion or biliary ductal dilatation is present. The gallbladder is contracted. There are gallstones in the gallbladder. The common bile duct measures 3 mm. No common bile duct stone is seen. PANCREAS: Unremarkable. SPLEEN: Unremarkable. ADRENAL GLANDS: Unremarkable. KIDNEYS AND URETERS: The kidneys are normal in size and shape. No hydronephrosis. No perinephric stranding. Small bright T2 lesions in the right kidney probably representing subcentimeter cysts. No imaging follow-up recommended. GASTROINTESTINAL TRACT: No bowel obstruction. No ascites or fluid collection. ABDOMINAL WALL: No significant hernia is appreciated. LYMPH NODES: No lymphadenopathy. VASCULAR: Unremarkable. OSSEOUS STRUCTURES: Marrow signal normal. MR/MR MRCP IMPRESSION: Contracted gallbladder. Gallstones. Normal caliber intra and extrahepatic bile ducts. The common bile duct measures 3 mm. No common bile duct stone seen.
== END 2023-03-06 08:53 | disposition home or self-care (01) ==
LOC: HO.MRI 08:52
PROVIDERS: PCP Internal Medicine; Visit Provider Surgery
DX: K80.44 Calculus of bile duct with chronic cholecystitis without obstruction (principal); R93.5 Abnormal findings on diagnostic imaging of other abdominal regions, including retroperitoneum; K80.50 Calculus of bile duct without cholangitis or cholecystitis without obstruction; E66.9 Obesity, unspecified
CPT/HCPCS: 74181

== ENCOUNTER → 2023-03-10 09:28 | Outpatient (BNVA) | payer OTHER, SELFPAY | PROVIDERS: PCP Internal Medicine; Referring Provider Internal Medicine; Visit Provider Surgery | DX: K80.44 Calculus of bile duct with chronic cholecystitis without obstruction (principal); K80.20 Calculus of gallbladder without cholecystitis without obstruction; R93.5 Abnormal findings on diagnostic imaging of other abdominal regions, including retroperitoneum | CPT/HCPCS: 99212 ==

== ENCOUNTER 2023-03-23 06:14 | Day surgery (SDC) | payer OTHER, SELFPAY ==
[2023-03-20 14:22] VITALS: BMI 39.7
[2023-03-20 15:50] VITALS: BMI 39.1
[2023-03-23] VITALS (11 sets, daily range): BP systolic 127–155; BP diastolic 78–101; PULSE 92–101; RESP 16–20; TEMP 36.2–36.8; O2SAT 90–100
[2023-03-23 06:31] LABS: UPreg QC Valid YES; Urine Pregnancy NEGATIVE (NEGATIVE)
--- NOTE | 2023-03-23 06:52 | MHC.SHP ---
Pre-Procedural Eval Section A Date of Service: 03/23/23 The patient is an INPATIENT: No The History & Physical has been completed within 30 days and I have reviewed it.: Yes Section B Chief Complaint: Calculus of bile duct with chronic cholecystitis Allergies: Allergies Allergy/AdvReac Type Severity Reaction Status Date / Time amoxicillin [AMOXICILLIN] Allergy Severe ANAPHYLAXIS, Verified 03/23/23 06:23 swelling Penicillins [PENICILLINS] Allergy Severe ANAPHYLAXIS Verified 03/23/23 06:23 polyethylene glycol 3350 Allergy Severe ANAPHYLAXIS Verified 03/23/23 06:23 [From MIRALAX] sulindac [SULINDAC] Allergy Severe SWELLING Verified 03/23/23 06:23 senna Allergy Intermediate Unknown Verified 03/23/23 06:23 Plan I have reviewed the history and physical and performed a pertinent physical examination on my patient. No changes have occurred unless specified. Time Spent With Patient Time: Total time managing care of this patient today ____ minutes.
--- NOTE | 2023-03-23 06:52 | W.PM.OPN ---
Operative Note Operative Note Date of Service: 03/23/23 Narrative: Preop diagnosis: [biliary cloic & choledocholithiasis] Postop diagnosis: [same] Procedure: [] Surgeon: Sergey Stewart MD Assist: [Elis Ocampo RN] Anesthesia: [GET; local is Marcaine, 0.5% plain] Estimated blood loss: [20cc] Specimen: [Gallbladder with contents] Intraoperative findings: [Adhesions of the omentum to the neck and body of the gallbladder were present. Critical view of safety demonstrated: Cystic duct was 4-5 mm and identified on the junction with the gallbladder; cystic artery 3 mm] Indications: [The patient is a 33-year-old woman who is experiencing abdominal pain and right upper quadrant pain and on workup was noted to have gallstones. 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 In her workup, she underwent ultrasound that was suspicious for choledocholithiasis; in the setting of her presentation and MRCP was performed which demonstrated no intraductal stones, but her symptoms were strongly suggestive of transient and unpredictable choledocholithiasis. And, given this, the options of continued medical observation versus cholecystectomy were discussed. I recommended a laparoscopic cholecystectomy, possibly open with possible cholangiogram in reviewed the inherent risks of I explained the symptoms of biliary colic and recommended laparoscopic cholecystectomy. I reviewed the option of continued observation and 2nd opinion which was declined. I also reviewed the inherent risks to surgery which include, but are not limited to: Bleeding that could require another operation or blood transfusion, the need for open surgery, the unlikely but possible issue of bile leak that could require an ERCP, the risk of retained common duct stones that could require an ERCP, the risk of common bile duct injury which would require transfer to a larger institution for another operation. Patient seemed to understand her options, declined a pharmaceutical worker or 2nd opinion and wants to proceed. Instructions regarding diet and activity reviewed and apparently understood. The patient is advised to avoid rich fatty foods postoperatively to avoid GI distress/diarrhea and advised to not lift more than 20 lb for medical reasons to minimize the risk of hernia postoperatively. I recommended that she discuss these restrictions with her employer and that she is not disabled during this time frame but can perform light duty. The patient's questions seemed to be satisfactorily answered. The patient seemed understand her options, requested that 1 of her care tripoler she be present for that discussion and ultimately, wanted to proceed.] Procedure: [The patient was identified in the preoperative holding area and again an operating room 3. An appropriate time-out was performed and preemptive local used at all trocar insertion sites. I began at the patient's supraumbilical midline and placed a Veress needle through a transverse supraumbilical incision. An appropriate drop test was performed. The needle was connected to high flow and opening pressures were 8 mmHg. A pneumoperitoneum of 15 mmHg was then obtained using carbon dioxide. The Veress needle was then removed and I accessed the patient's abdomen through the supraumbilical midline incision using a 5 mm Optiview trocar and 30 degree/5 mm laparoscopic without incident. Next a a 5 mm epigastric and two 5 mm right subcostal ports were placed with preemptive analgesia under direct laparoscopic vision without incident and the supraumbilical trocar upsized to a 12 mm trocar under direct laparoscopic vision. The gallbladder was clearly identified and grasped by its fundus. There were adhesions from the omentum to the neck and body of the gallbladder that were carefully lysed using sharp dissection and electrocautery. It was retracted cranially and anteriorly and dissection began in the lateral cystic triangle. The cystic duct was identified at its junction on the gallbladder and dissection carried medially, then circumferentially using the [place] dissector and hook. The cystic artery was then carefully identified and circumferentially dissected. Once dissection of both structures was complete and the critical view of safety demonstrated, the duct and artery were double clipped proximally and once distally and sharply divided. Electrocautery was used to remove the gallbladder from its fossa on the liver. Liver bed was inspected for hemostasis and the clips were noted to be on the respective structures. The gallbladder was placed in an Endo-Catch bag and delivered through the umbilicus under direct laparoscopic vision. The abdomen was again inspected with the laparoscoped and a abdomen deflated to assess for hemostasis. The patient was returned to neutral position, the abdomen deflated and the fascia of the supraumbilical incision closed with interrupted Vicryl sutures. Skin was closed with 4-0 Monocryl subcuticular sutures. Mastisol and Steri-Strips were applied followed by Band-Aids. The patient tolerated the procedure well and was extubated recovered in stable condition. All sponge instrument counts were correct. At the patient's request I called her PD [place] at [phone] to apprise her of the operation and post-op plan, activity restrictions, pain management & bowel regime. Questions seemed to be satisfactorily answered.]
[2023-03-23] MEDS: Lactated Ringers 1,000 ML 100 ML IVCONT (07:05)
--- NOTE | 2023-03-23 07:20 | HO.ANESPROP2 ---
Documented by User: Anisa García NP 03/21/23 15:27 HPI - Anesthesia Eval Consult details Narrative: 33yo F for Cholecystectomy Laparoscopic,with poss cholangiogram PMFSH Active Problems Active Problems: All Active Problems (Updated 03/03/23 @ 08:45 by Sergey Stewart MD) Choledocholithiasis with chronic cholecystitis (Acute) Abnormal CT of the abdomen (Acute) Cholelithiasis (Acute) Bleeding hemorrhoids (Acute) Right sided abdominal pain (Acute) Vitamin D deficiency (Acute) Dysuria (Acute) Heel callus (Acute) Mild intermittent asthma in adult without complication (Acute) Ex-cigarette smoker (Acute) Motion sickness (Acute) Mild intellectual disability (Acute) Porcelain gallbladder (Acute) Migraine (Acute) Depression with anxiety (Acute) Obesity (Acute) Dysmenorrhea (Acute) Past Medical History Medical History Asthma Benign tumor of breast Bleeding hemorrhoids Cholelithiasis Depression with anxiety Dysmenorrhea Ex-cigarette smoker Heel callus Migraine Mild intellectual disability Mild intermittent asthma in adult without complication Motion sickness Need for pneumococcal vaccination Obesity Porcelain gallbladder Prosthetic eye globe Right sided abdominal pain Vitamin D deficiency Family History Family History Mother No problems noted. Father No problems noted. Brother No problems noted. Brother No problems noted. Maternal Aunt Breast cancer Surgical History Surgical History History of benign neoplasm of breast History of eye surgery Social History Social History Household Members: Other Housing Other:: senior living Are you a primary intensive care nurse to a significant other at home: No Alcohol intake: never Patient Tobacco Use Status: Former Tobacco user Quit Date: 03/2022 Tobacco use type: Cigarette Cigarettes Per Day: 0 e-Cigarette/Vaping Use: Never Used Second Hand Smoke Exposure: No Use of substances other than those prescribed or required for medical reasons: No Have you been hit, kicked, punched, or otherwise hurt by someone within the past year? If so, by whom?: No Are you DNR?: No Advance Directives: No Advance Directives Information Provided: Yes Advance Directives on File: No Recently lost weight without trying: No Nutrition Risks: No Nutritional Risk Patient : No FDLMP: unknown : No Poor oral hygiene: No service: No 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al status: disabled Gender identity: Female Cognitive needs: No Hearing needs: No Vision needs: No Meds Allergies Allergy/AdvReac Type Severity Reaction Status Date / Time amoxicillin [AMOXICILLIN] Allergy Severe ANAPHYLAXIS, Verified 03/23/23 06:23 swelling Penicillins [PENICILLINS] Allergy Severe ANAPHYLAXIS Verified 03/23/23 06:23 polyethylene glycol 3350 Allergy Severe ANAPHYLAXIS Verified 03/23/23 06:23 [From MIRALAX] sulindac [SULINDAC] Allergy Severe SWELLING Verified 03/23/23 06:23 senna Allergy Intermediate Unknown Verified 03/23/23 06:23 Home Medications Medication Instructions Recorded Confirmed Last Taken Type sumatriptan succinate 50 mg tablet 50 mg PO DAILY 07/03/20 03/23/23 Unknown History polyvinyl alcohol 1.4 % eye drops 1 drp ophthalmic (eye) DAILY 07/06/21 03/23/23 Unknown History (Artificial Tears (polyvinyl alcohol)) melatonin 5 mg tablet 5 mg PO BEDTIME 07/26/21 03/23/23 Unknown History levonorgestrel 21 mcg/24 hours (8 1 device intrauterine DAILY 11/29/21 03/23/23 Unknown History yrs) 52 mg intrauterine device (Mirena) acetaminophen 325 mg tablet 650 mg PO Q6H PRN Pain 12/12/22 03/23/23 Unknown History erythromycin 5 mg/gram (0.5 %) eye 1 appl ophthalmic (eye) DAILY 01/24/23 03/23/23 Unknown History ointment trazodone 150 mg tablet 150 - 300 mg PO BEDTIME PRN 01/24/23 03/23/23 Unknown History Insomnia verapamil 40 mg tablet 40 mg PO BID 01/24/23 03/23/23 03/23/23 History Exam Exam Date and Time: March 21, 2023 1525 Height,Weight and Vital Signs: Height 5 ft 3 in Weight 100.244 kg Pertinent Lab Results Pertinent Lab Results: Laboratory Tests 03/03/23 03/03/23 10:10 10:10 WBC 5.5 Hgb 12.3 Hct 36.4 L Plt Count 171 Sodium 142 Potassium 3.6 Chloride 109 H Carbon Dioxide 26 BUN 10 Creatinine 0.82 Assessment and Plan Assessment Anesthesia Assessment: Chart Reviewed Documented by User: Tanya Crowder DO 03/23/23 07:25 HPI - Anesthesia Eval Consult details Narrative: 33yo F for Cholecystectomy Laparoscopic,with poss cholangiogram. HCG negative. PMFSH Past Medical History Medical History Asthma Benign tumor of breast Bleeding hemorrhoids Cholelithiasis Depression with anxiety Dysmenorrhea Ex-cigarette smoker Heel callus Migraine Mild intellectual disability Mild intermittent asthma in adult without complication Motion sickness Need for pneumococcal vaccination Obesity Porcelain gallbladder Prosthetic eye globe Right sided abdominal pain Vitamin D deficiency Patient : No Family History Family History Mother No problems noted. Father No problems noted. Brother No problems noted. Brother No problems noted. Maternal Aunt Breast cancer Family history of problems with anesthesia: No Surgical History Surgical History History of benign neoplasm of breast History of eye surgery History of Problems with Anesthesia: No Social History Social History Household Members: Other Housing Other:: senior living Are you a primary intensive care nurse to a significant other at home: No Alcohol intake: never Patient Tobacco Use Status: Former Tobacco user Quit Date: 03/2022 Tobacco use type: Cigarette Cigarettes Per Day: 0 e-Cigarette/Vaping Use: Never Used Second Hand Smoke Exposure: No Use of substances other than those prescribed or required for medical reasons: No Have you been hit, kicked, punched, or otherwise hurt by someone within the past year? If so, by whom?: No Are you DNR?: No Advance Directives: No Advance Directives Information Provided: Yes Advance Directives on File: No Recently lost weight without trying: No Nutrition Risks: No Nutritional Risk Patient : No FDLMP: unknown : No Poor oral hygiene: No service: No 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al status: disabled Gender identity: Female Cognitive needs: No Hearing needs: No Vision needs: No Meds Allergies Allergy/AdvReac Type Severity Reaction Status Date / Time amoxicillin [AMOXICILLIN] Allergy Severe ANAPHYLAXIS, Verified 03/23/23 06:23 swelling Penicillins [PENICILLINS] Allergy Severe ANAPHYLAXIS Verified 03/23/23 06:23 polyethylene glycol 3350 Allergy Severe ANAPHYLAXIS Verified 03/23/23 06:23 [From MIRALAX] sulindac [SULINDAC] Allergy Severe SWELLING Verified 03/23/23 06:23 senna Allergy Intermediate Unknown Verified 03/23/23 06:23 Home Medications Medication Instructions Recorded Confirmed Last Taken Type sumatriptan succinate 50 mg tablet 50 mg PO DAILY 07/03/20 03/23/23 Unknown History polyvinyl alcohol 1.4 % eye drops 1 drp ophthalmic (eye) DAILY 07/06/21 03/23/23 Unknown History (Artificial Tears (polyvinyl alcohol)) melatonin 5 mg tablet 5 mg PO BEDTIME 07/26/21 03/23/23 Unknown History levonorgestrel 21 mcg/24 hours (8 1 device intrauterine DAILY 11/29/21 03/23/23 Unknown History yrs) 52 mg intrauterine device (Mirena) acetaminophen 325 mg tablet 650 mg PO Q6H PRN Pain 12/12/22 03/23/23 Unknown History erythromycin 5 mg/gram (0.5 %) eye 1 appl ophthalmic (eye) DAILY 01/24/23 03/23/23 Unknown History ointment trazodone 150 mg tablet 150 - 300 mg PO BEDTIME PRN 01/24/23 03/23/23 Unknown History Insomnia verapamil 40 mg tablet 40 mg PO BID 01/24/23 03/23/23 03/23/23 History Exam Exam Date and Time: March 232022 Height,Weight and Vital Signs: Height 5 ft 3 in Weight 100.244 kg Vital Signs Temperature 97.7 F 03/23/23 06:38 Pulse Rate 92 03/23/23 06:38 Respiratory Rate 16 03/23/23 06:38 Blood Pressure 154/97 H 03/23/23 06:38 Pulse Oximetry 98 03/23/23 06:38 Oxygen Delivery Method Room Air 03/23/23 06:38 Temperature 97.7 F 03/23/23 06:38 Pulse Rate 92 03/23/23 06:38 Respiratory Rate 16 03/23/23 06:38 Blood Pressure 154/97 H 03/23/23 06:38 Pulse Oximetry 98 03/23/23 06:38 Oxygen Delivery Method Room Air 03/23/23 06:38 Airway Mallampati Class: II TM Dist: >3cm Neck ROM: Full Loose/Missing/Broken Teeth: No Heart: S1S2 Lungs: CTAB Other: Red skin around left eyelid. Oozy discharge around eye. Assessment and Plan Assessment Anesthesia Assessment: Anesthesia Plan Discussed and Chart Reviewed Final Anesthetic Review Family History of Problems with Anesthesia: No History of Problems with Anesthesia: No NPO: Yes ASA Class: III Final Preanesthetic Review: No Changes in Pt Med Stat, Meds/Allgs Chart Reviewed, Consent Obtained/Reviewed and Anes Risks/Benef Reviewed Patient Risk: Low Procedure Risk: Low Anesthetic Plan Anesthetic Plan: GA and Agree w/ Assess. and Plan Disposition: Standard PACU
[2023-03-23] MEDS: HYDROmorphone HCl 0.5 MG/0.5 ML SYRINGE IVPUSH ×2 (09:26→09:44)
[2023-03-23] MEDS: Acetaminophen 325 MG TABLET 650 MG PO (09:48)
== END 2023-03-23 11:10 | disposition home or self-care (01) ==
LOC: HO.SSS 06:14
PROVIDERS: Nurse Practitioner; PCP Internal Medicine; Visit Provider Surgery
PROC: 0FT44ZZ Resection of Gallbladder, Percutaneous Endoscopic Approach (ICD-10-PCS; CPT 47562; principal; 2023-03-23 07:30)
DX: K80.10 Calculus of gallbladder with chronic cholecystitis without obstruction (principal); K82.8 Other specified diseases of gallbladder; J45.20 Mild intermittent asthma, uncomplicated; E55.9 Vitamin D deficiency, unspecified; E66.9 Obesity, unspecified; F41.8 Other specified anxiety disorders; F70 Mild intellectual disabilities; G43.909 Migraine, unspecified, not intractable, without status migrainosus; Z79.899 Other long term (current) drug therapy; Z88.0 Allergy status to penicillin; Z88.1 Allergy status to other antibiotic agents; Z88.8 Allergy status to other drugs, medicaments and biological substances; Z90.49 Acquired absence of other specified parts of digestive tract; Z87.891 Personal history of nicotine dependence
CPT/HCPCS: 47562; 81025; 88304; J1100; J1170; J1956; J2250; J2370; J2405; J2550; J2795; J3010

== ENCOUNTER 2023-03-27 10:56 | Emergency (ER) | payer OTHER, SELFPAY ==
--- NOTE | ~2023-03-27 | US_ITS ---
EXAMINATION: US VENOUS WITH DOPPLER UPPER EXTREMITY, LEFT CLINICAL INFORMATION: Recent surgery, left upper extremity pain COMPARISON: None available. TECHNIQUE: Ultrasound of the upper extremity is performed using compression sonography and color and pulse Doppler flow with assessment of augmentation of flow. There is also imaging and Doppler assessment of the jugular and subclavian veins. Spectral analysis with color-flow imaging is performed. FINDINGS: Respiratory variation, normal compression, and augmented flow are noted throughout the upper extremity including the axillary, brachial, and cubital veins. The forearm is asymptomatic and not studied. There is normal flow in the internal jugular and subclavian veins. There is no visible deep or superficial thrombophlebitis. If the patient's symptoms progress, a followup ultrasound in 5 -7 days might be of value to exclude proximal propagation from a nonvisualized distal arm vein. US/US venous duplex UE LT IMPRESSION: No DVT demonstrated in the visualized deep venous systems of the left upper extremity.
--- NOTE | ~2023-03-27 | XR_ITS ---
EXAMINATION: XR SHOULDER, LEFT CLINICAL INFORMATION: Acute left shoulder pain COMPARISON: None available. TECHNIQUE: Three views of the left shoulder. FINDINGS: The humeral head and neck appear unremarkable. No erosive process. No evidence for acute fracture or dislocation. There is spurring in the superior aspect of the acromion. The AC joint is maintained. XR/XR shoulder LT min 2V IMPRESSION: No acute process. Spurring in the superior aspect of the acromion.
[2023-03-27 11:39] VITALS: BP 178/90; PULSE 102; RESP 16; O2SAT 98; BMI 32.9
--- NOTE | 2023-03-27 11:40 | ED.UPPEXIN ---
HPI - Extremity Injury (Upper) General Chief Complaint: Extremity Injury, Upper Stated Complaint: Gallbladder surgery arm pain Time Seen by Provider: 03/27/23 13:18 Source: patient and other (Staff) Limitations: no limitations History of Present Illness HPI narrative: 33-year-old female presents with left upper extremity pain. Symptoms started approximately 1 week ago following gallbladder surgery. The symptoms are described as severe. Pain is worse with movement. It does not radiate. Sometimes associated with numbness and tingling. There is no weakness. There is no recent injury, falls, trauma or heavy lifting. Patient has never had this before. She denies any swelling. She is taking oxycodone which is not assisting in her pain relief. Related Data Home Medications Medication Instructions Recorded Confirmed sumatriptan succinate 50 mg tablet 50 mg PO DAILY 07/03/20 03/23/23 polyvinyl alcohol 1.4 % eye drops 1 drp ophthalmic (eye) DAILY 07/06/21 03/23/23 (Artificial Tears (polyvinyl alcohol)) melatonin 5 mg tablet 5 mg PO BEDTIME 07/26/21 03/23/23 levonorgestrel 21 mcg/24 hours (8 1 device intrauterine DAILY 11/29/21 03/23/23 yrs) 52 mg intrauterine device (Mirena) acetaminophen 325 mg tablet 650 mg PO Q6H PRN Pain 12/12/22 03/23/23 erythromycin 5 mg/gram (0.5 %) eye 1 appl ophthalmic (eye) DAILY 01/24/23 03/23/23 ointment trazodone 150 mg tablet 150 - 300 mg PO BEDTIME PRN 01/24/23 03/23/23 Insomnia verapamil 40 mg tablet 40 mg PO BID 01/24/23 03/23/23 Previous Rx's Medication Instructions Recorded albuterol sulfate 90 mcg/actuation 2 puff inhalation Q4-6H PRN 03/16/22 aerosol inhaler bronchospasm #8.5 grams loratadine 10 mg tablet 10 mg PO DAILY #90 tabs 03/16/22 albuterol sulfate 2.5 mg/3 mL 2.5 mg (3 mL) inhalation Q6-8H PRN 05/26/22 (0.083 %) solution for nebulization shortness of breath or wheezing #75 mL oxcarbazepine 600 mg tablet 600 mg PO BID #60 tabs 05/30/22 (Trileptal) naproxen sodium 550 mg tablet 550 mg PO BID PRN pain #30 tabs 06/16/22 multivitamin 1 tab PO DAILY #90 tabs 07/20/22 psyllium husk (with sugar) 3 1 tsp PO DAILY #538 grams 10/07/22 gram/7 gram oral powder (Reguloid (psyllium husk-sucrose)) docusate sodium 100 mg capsule 100 mg PO BID #60 caps 02/10/23 (Colace) famotidine 40 mg tablet 40 mg PO DAILY heartburn #30 tabs 03/07/23 oxycodone 5 mg tablet 5 mg PO Q4H PRN pain #14 tabs 03/23/23 gabapentin 300 mg capsule 300 mg PO TID #14 caps 03/27/23 Allergies Allergy/AdvReac Type Severity Reaction Status Date / Time amoxicillin [AMOXICILLIN] Allergy Severe ANAPHYLAXIS, Verified 03/27/23 11:48 swelling Penicillins [PENICILLINS] Allergy Severe ANAPHYLAXIS Verified 03/27/23 11:48 polyethylene glycol 3350 Allergy Severe ANAPHYLAXIS Verified 03/27/23 11:48 [From MIRALAX] sulindac [SULINDAC] Allergy Severe SWELLING Verified 03/27/23 11:48 senna Allergy Intermediate Unknown Verified 03/27/23 11:48 Review of Systems Review of Systems: CONSTITUTIONAL: Denies weight loss, fever and chills. HEENT: Denies changes in vision and hearing. RESPIRATORY: Denies SOB and cough. CV: Denies palpitations no CP. GI: Denies abdominal pain, nausea, vomiting and diarrhea. : Denies dysuria and urinary frequency. MSK: + myalgia and joint pain. SKIN: Denies rash and pruritus. NEUROLOGICAL: Denies headache and syncope. PSYCHIATRIC: Denies recent changes in mood. Denies anxiety and depression. All other ROS are negative unless in HPI PMFSH Past Medical History Medical History Asthma Benign tumor of breast Bleeding hemorrhoids Cholelithiasis Depression with anxiety Dysmenorrhea Ex-cigarette smoker Heel callus Migraine Mild intellectual disability Mild intermittent asthma in adult without complication Motion sickness Need for pneumococcal vaccination Obesity Porcelain gallbladder Prosthetic eye globe Right sided abdominal pain Vitamin D deficiency Surgical History History of benign neoplasm of breast History of cholecystectomy History of eye surgery Family History Family History Mother No problems noted. Father No problems noted. Brother No problems noted. Brother No problems noted. Maternal Aunt Breast cancer Social History Social History Household Members: Other Housing Other:: detention Are you a primary transitional care liaison to a significant other at home: No Alcohol intake: never Patient Tobacco Use Status: Former Tobacco user Quit Date: 03/2022 Tobacco use type: Cigarette Cigarettes Per Day: 0 Smoked in Last 30 Days: No e-Cigarette/Vaping Use: Never Used Second Hand Smoke Exposure: No Use of substances other than those prescribed or required for medical reasons: No Advance Directives: No Advance Directives Information Provided: Yes Patient : No service: No 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al status: disabled Gender identity: Female Cognitive needs: No Hearing needs: No Vision needs: No Physical Exam Vital Signs: Vital Signs: Last Vital Signs Temp 98.5 F 03/27/23 13:15 Pulse 94 03/27/23 13:15 Resp 16 03/27/23 13:15 BP 182/105 H 03/27/23 13:15 Pulse Ox 99 03/27/23 13:15 O2 Del Method Room Air 03/27/23 13:15 BMI result Body Mass Index 32.9 GEN: Well developed, no acute distress, alert, oriented HEENT: Normocephalic, atraumatic, normal external ears, nose appears normal, no oropharyngeal edema or exudates Eyes: Normal to appearance Neck: Supple, no lymphadenopathy Respiratory: Talks in complete sentences, no respiratory distress, clear to auscultation bilaterally Cardiovascular: Regular rate and rhythm, no murmurs rubs or gallops Abdomen: Soft, nontender, nondistended, no guarding, no rebound Back: No CVA tenderness Extremities: No clubbing cyanosis or edema, 2+ radialis pulse, neurovascular intact, capillary refill less 3 seconds on the left, tenderness in the bicipital groove, subacromial space in generalized left shoulder. There is no swelling. Neurologic: No focal neurologic deficits, cranial nerves 2-12 intact, strength is 5/5 bilaterally Skin: No rash Course Course Course Narrative: RME - 33 yo female with history of cholecystectomy on 03/[address] Stewart who [place] the ER [place] [facility] for evaluation of left upper arm pain since the surgery. Program staff thinks the arm is more swollen and red. It is tender to touch with decreased ROM of the left shoulder. Has been taking pain meds and tylenol with minimal relief. Plan: U/S r/o DVT Medications Administered Discontinued Medications Generic Name Dose Route Start Last Admin Trade Name Kathryn PRN Reason Stop Dose Admin Acetaminophen 975 mg 03/27/23 13:25 03/27/23 13:43 Acetaminophen 325 Mg Tablet PO 03/27/23 13:26 975 mg ONCE ONE Administration Gabapentin 300 mg 03/27/23 13:25 03/27/23 13:44 Gabapentin 300 Mg Capsule PO 03/27/23 13:26 300 mg ONCE ONE Administration Lidocaine 1 patch 03/27/23 13:03/27/23 13:43 Lidocaine 4 % Patch Adh..Patch TRANSDERMA 03/27/23 13:26 1 patch ONCE ONE Administration Protocol Naproxen 500 mg 03/27/23 13:25 03/27/23 13:44 Naproxen 500 Mg Tablet PO 03/27/23 13:26 500 mg ONCE ONE Administration Oxycodone HCl 5 mg 03/27/23 13:25 03/27/23 13:44 Oxycodone Hcl Immed Release 5 Mg Tablet PO 03/27/23 13:26 5 mg ONCE ONE Administration Medical Decision Making Medical Decision Making MDM Narrative: 33-year-old female presents with left shoulder pain following surgery. There has been no falls or injury. There is no swelling. Ultrasound has been ordered to rule out DVT. I doubt fracture although I will order an x-ray to rule this out as well. Suspect tendonitis, rotator cuff injury, muscle strain, sprain, strain. Will treat pain well patient's workup is being undertaken. Suspect patient will be able to be discharged on a new pain regimen and follow-up with her primary care provider or an orthopedist. Differential Diagnosis Differential Diagnoses: The differential diagnosis associated with the presentation includes (See above) Independent Interpretation I performed an independent interpretation of an: Plain X-Ray (Shoulder left: No acute traumatic injury) and Ultrasound (No DVT) Radiology Impression Discussion of test interpretation with radiology: I have reviewed the radiologist's reading. ( US/US venous duplex UE LT IMPRESSION: No DVT demonstrated in the visualized deep venous systems of the left upper extremity. Dictated By:Pablo WilliamSigned By:<Electronically signed by Pablo William in OV>03/27/23 1836) Independent Historian Clinical information obtained from an independent historian. History obtained from or confirmed by: Other (Staff member facility) Prescription Management I considered prescription management with: Pain Medication Discharge Plan Discharge Clinical Impression: Left shoulder pain Patient Disposition: Home, Self-Care Instructions: Arm Pain (ED), Shoulder Pain (ED) Additional Instructions: For Pain: Restart Naproxen twice a day for seven days with food and then as needed Tylenol 1000 mg every 6 hours as needed for additional pain Gabapentin 300 mg three times a day Oxycodone as needed and previously presccribe Prescriptions: New gabapentin 300 mg capsule 300 mg PO TID Qty: 14 0RF No Action albuterol sulfate 90 mcg/actuation HFA aerosol inhaler 2 puff inhalation Q4-6H PRN (Reason: bronchospasm) Qty: 8.5 8RF loratadine 10 mg tablet 10 mg PO DAILY Qty: 90 8RF albuterol sulfate 2.5 mg /3 mL (0.083 %) solution for nebulization 2.5 mg inhalation Q6-8H PRN (Reason: shortness of breath or wheezing) Qty: 75 5RF oxcarbazepine [Trileptal] 600 mg tablet 600 mg PO BID Qty: 60 3RF naproxen sodium 550 mg tablet 550 mg PO BID PRN (Reason: pain) Qty: 30 1RF Rx Instructions: take one tablet BID for the first few days of cramping with menses, then stop. Repeat as needed each cycle multivitamin Tablet 1 tab PO DAILY Qty: 90 3RF Reguloid (psyllium husk-sucro) 3 gram/7 gram powder 1 tsp PO DAILY Qty: 538 5RF docusate sodium [Colace] 100 mg capsule 100 mg PO BID Qty: 60 2RF famotidine 40 mg tablet 40 mg PO DAILY Qty: 30 0RF Rx Instructions: take 30 mins ac oxycodone 5 mg tablet 5 mg PO Q4H PRN (Reason: pain) Qty: 14 0RF Rx Instructions: Partial Fill upon patient request. sumatriptan succinate 50 mg tablet 50 mg PO DAILY polyvinyl alcohol [Artificial Tears (polyvin alc)] 1.4 % drops 1 drp ophthalmic (eye) DAILY melatonin 5 mg tablet 5 mg PO BEDTIME Mirena 20 mcg/24 hours (7 yrs) 52 mg intrauterine device 1 device intrauterine DAILY acetaminophen 325 mg tablet 650 mg PO Q6H PRN (Reason: Pain) trazodone 150 mg tablet 150 - 300 mg PO BEDTIME PRN (Reason: Insomnia) verapamil 40 mg tablet 40 mg PO BID erythromycin 5 mg/gram (0.5 %) ointment 1 appl ophthalmic (eye) DAILY Referrals: Lei San MD [Physician] - 1 week
[2023-03-27 13:15] VITALS: BP 182/105; PULSE 94; RESP 16; TEMP 36.9; O2SAT 99
[2023-03-27] MEDS: Lidocaine 4 % Patch ADH..PATCH 1 PATCH TRANSDERMA (13:43)
[2023-03-27] MEDS: Acetaminophen 325 MG TABLET 975 MG PO (13:43)
[2023-03-27] MEDS: NaPROXEN 500 MG TABLET PO (13:44)
[2023-03-27] MEDS: oxyCODONE HCl Immed Release 5 MG TABLET PO (13:44)
[2023-03-27] MEDS: Gabapentin 300 MG CAPSULE PO (13:44)
--- NOTE | 2023-03-27 13:58 | PC.NURSE ---
pt alert and oriented, dr. dodson in room during initial assessment, pt stating 10/10 pain in left arm/shoulder after surgery on the , patient had a high BP - vs within normal limits otherwise, pt medicated per provider orders, call opnce within reach.
== END 2023-03-27 15:25 | disposition home or self-care (01) ==
PROVIDERS: Emergency Provider Emergency Medicine; PCP Internal Medicine
DX: M79.602 Pain in left arm (principal); Z90.49 Acquired absence of other specified parts of digestive tract; Z87.891 Personal history of nicotine dependence; Z79.899 Other long term (current) drug therapy
CPT/HCPCS: 73030; 93971; 99284

== ENCOUNTER → 2023-03-31 10:10 | Outpatient (BNVA) | payer OTHER, SELFPAY | PROVIDERS: PCP Internal Medicine; Visit Provider Surgery ==

== ENCOUNTER 2023-04-09 07:28 | Emergency (ER) | payer OTHER, SELFPAY ==
[2023-04-09 07:36] VITALS: BP 190/123; BP 210/130; PULSE 110; PULSE 92; RESP 22; TEMP 37.1; O2SAT 100; O2SAT 99; BMI 25.7
--- NOTE | 2023-04-09 08:21 | ED.ABDPAIN ---
HPI - Abdominal Pain General Chief Complaint: Abdominal Pain Stated Complaint: Abd and L shoulder pain per EMS Time Seen by Provider: 04/09/23 07:39 Source: patient, family (Caregiver from [facility]) and EMS Mode of arrival: EMS Limitations: no limitations History of Present Illness HPI narrative: 33-year-old female s/p cholecystectomy 2 weeks ago came in for evaluation of upper abdominal pain with nausea and vomiting and left shoulder pain. Staff and patient confirmed that the patient ever since had cholecystectomy 2 weeks ago then complaining of upper abdominal pain with nausea and vomiting that is intermittent associated with nausea and vomiting no diarrhea, worsening with food no relieving factor, pain is mostly in the epigastric and left upper quadrant area. Patient also is here for evaluation of left shoulder pain patient has been evaluated for left shoulder pain 2 weeks ago had no DVT demonstrated on the venous Doppler ultrasound on 03/27/2023. Related Data Home Medications Medication Instructions Recorded Confirmed sumatriptan succinate 50 mg tablet 50 mg PO DAILY 07/03/20 03/23/23 polyvinyl alcohol 1.4 % eye drops 1 drp ophthalmic (eye) DAILY 07/06/21 03/23/23 (Artificial Tears (polyvinyl alcohol)) melatonin 5 mg tablet 5 mg PO BEDTIME 07/26/21 03/23/23 levonorgestrel 21 mcg/24 hours (8 1 device intrauterine DAILY 11/29/21 03/23/23 yrs) 52 mg intrauterine device (Mirena) acetaminophen 325 mg tablet 650 mg PO Q6H PRN Pain 12/12/22 03/23/23 erythromycin 5 mg/gram (0.5 %) eye 1 appl ophthalmic (eye) DAILY 01/24/23 03/23/23 ointment trazodone 150 mg tablet 150 - 300 mg PO BEDTIME PRN 01/24/23 03/23/23 Insomnia verapamil 40 mg tablet 40 mg PO BID 01/24/23 03/23/23 Previous Rx's Medication Instructions Recorded albuterol sulfate 90 mcg/actuation 2 puff inhalation Q4-6H PRN 03/16/22 aerosol inhaler bronchospasm #8.5 grams albuterol sulfate 2.5 mg/3 mL 2.5 mg (3 mL) inhalation Q6-8H PRN 05/26/22 (0.083 %) solution for nebulization shortness of breath or wheezing #75 mL oxcarbazepine 600 mg tablet 600 mg PO BID #60 tabs 05/30/22 (Trileptal) naproxen sodium 550 mg tablet 550 mg PO BID PRN pain #30 tabs 06/16/22 multivitamin 1 tab PO DAILY #90 tabs 07/20/22 psyllium husk (with sugar) 3 1 tsp PO DAILY #538 grams 10/07/22 gram/7 gram oral powder (Reguloid (psyllium husk-sucrose)) docusate sodium 100 mg capsule 100 mg PO BID #60 caps 02/10/23 (Colace) oxycodone 5 mg tablet 5 mg PO Q4H PRN pain #14 tabs 03/23/23 gabapentin 300 mg capsule 300 mg PO TID #14 caps 03/27/23 loratadine 10 mg tablet 10 mg PO DAILY #90 tabs 04/03/23 famotidine 40 mg tablet 40 mg PO DAILY heartburn #30 tabs 04/06/23 omeprazole 40 mg capsule,delayed 40 mg PO DAILY #14 caps 04/09/23 release ondansetron 4 mg disintegrating 4 mg PO Q8-12H PRN nausea and 04/09/23 tablet vomiting #7 tabs Allergies Allergy/AdvReac Type Severity Reaction Status Date / Time amoxicillin [AMOXICILLIN] Allergy Severe ANAPHYLAXIS, Verified 03/31/23 10:13 swelling Penicillins [PENICILLINS] Allergy Severe ANAPHYLAXIS Verified 03/31/23 10:13 polyethylene glycol 3350 Allergy Severe ANAPHYLAXIS Verified 03/31/23 10:13 [From MIRALAX] sulindac [SULINDAC] Allergy Severe SWELLING Verified 03/31/23 10:13 senna Allergy Intermediate Unknown Verified 03/31/23 10:13 Review of Systems Review of Systems All other systems are reviewed and are negative Constitutional: Reports as per HPI and Reports no additional constitutional complaints Eyes: Reports as per HPI and Reports no additional eye complaints Reports system reviewed and no additional complaints, except as documented Cardiovascular: Reports as per HPI and Reports no additional cardiovascular complaints Respiratory: Reports as per HPI and Reports no additional respiratory complaints Gastrointestinal: Reports as per HPI and Reports no additional gastrointestinal complaints Genitourinary: Reports no additional female genitourinary complaints Musculoskeletal: Reports no additional musculoskeletal complaints Skin/Breast: Reports system reviewed and no additional complaints, except as docu Psychiatric: Reports no additional psychiatric complaints Endocrine: Reports no additional endocrine complaints Hematologic/Lymphatic: Reports no additional hematologic/lymphatic complaints Allergic/Immunologic: Reports no additional allergic/immunologic complaints Reports system reviewed and no additional complaints, except as documented and Reports Abnormal speech present [facility] Past Medical History Medical History Asthma Benign tumor of breast Bleeding hemorrhoids Cholelithiasis Depression with anxiety Dysmenorrhea Ex-cigarette smoker Heel callus Migraine Mild intellectual disability Mild intermittent asthma in adult without complication Motion sickness Need for pneumococcal vaccination Obesity Porcelain gallbladder Prosthetic eye globe Right sided abdominal pain Vitamin D deficiency Surgical History History of benign neoplasm of breast History of cholecystectomy History of eye surgery Family History Family History Mother No problems noted. Father No problems noted. Brother No problems noted. Brother No problems noted. Maternal Aunt Breast cancer Social History Social History Household Members: Other Housing Other:: [facility] Are you a primary medicare contact specialist to a significant other at home: No Alcohol intake: never Patient Tobacco Use Status: Former Tobacco user Quit Date: 03/2022 Tobacco use type: Cigarette Cigarettes Per Day: 0 Smoked in Last 30 Days: No e-Cigarette/Vaping Use: Never Used Second Hand Smoke Exposure: No Use of substances other than those prescribed or required for medical reasons: No Advance Directives: No Advance Directives Information Provided: Yes Patient : No service: No 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al status: disabled Gender identity: Female Cognitive needs: No Hearing needs: No Vision needs: No Physical Exam ED Vital Signs: Vital Signs - 24 hr 04/09/23 07:36 04/09/23 09:40 04/09/23 11:46 Temperature 98.7 F 98.3 F 99.5 F Pulse Rate 92 96 96 Respiratory Rate 22 H 18 20 Blood Pressure 190/123 H 175/101 H 175/102 H Pulse Oximetry 100 95 98 Oxygen Delivery Method Room Air Room Air Room Air BMI result Body Mass Index 25.7 Vital signs have been reviewed as appeared to be correct. Blood pressure normal. Heart rate normal. Respiration rate normal. Temperature normal. Oxygen saturation normal. Appearance: Alert. Oriented X3. No acute distress. Head: Normal external exam. Normocephalic. Atraumatic. No [place] signs noted. No raccoon eyes noted Eyes: PERRLA. EOMI. Conjunctiva and sclera normal. Eyelids normal. ENT: TM's Normal. Pharynx normal. Uvula midline. Moist mucous membranes. No trismus noted. No drooling noted. No muffled voice noted. Neck: Normal inspection. Neck supple. FROM. No adenopathy. Thyroid Normal. No meningeal signs. No neck mass noted. CVS: Normal heart rate and rhythm. Heart sound normal. No murmurs noted. Pulses normal throughout. Respiratory: No respiratory distress. Painless inspiration. Breath sounds normal. No wheezes/rales/rhonchi noted. Chest nontender. No accessory muscle usage noted or decreased air movement noted. Abdomen: Soft and nontender. Bowel sounds normal in all 4 quadrants. No distention noted. No organomegaly noted. No visible injury noted. Back: No CVA tenderness. Full range of motion noted. Skin: Skin warm and dry. Normal skin color. Normal skin turgor. No rashes/lesions/lacerations noted. Extremities: No lower extremity edema. Extremities exhibit normal range of motion. Extremities nontender. Neuro: Oriented X 3. Cranial nerve exam: II-XII are grossly intact No motor deficit. No sensory deficit. Reflexes normal. Course Course Course Narrative: Abdominal pain with vomiting for 2 weeks, s/p cholecystectomy had CT of the abdomen pelvis today showed no acute intra abdominal pathology, labs are unremarkable patient's symptoms has improved while she is in the ED after medication and hydration, will discharge on Zofran/Prilosec and follow with GI. Medical Decision Making Differential Diagnosis Differential Diagnoses: The differential diagnosis associated with the presentation includes (Colitis, diverticulitis, post cholecystectomy complication, gastritis, dehydration, electrolyte abnormality, UTI.) Admission/Observation Consideration of admission/observation: Escalation of care including admission/observation considered Lab Data MDM Lab Attestation statement: I reviewed the patient's lab results. 04/09/23 09:40 04/09/23 09:40 Labs: Lab Results 04/09/23 04/09/23 04/09/23 Range/Units 09:40 09:40 09:40 WBC 8.3 (4.8-10.8) X10*3/uL RBC 4.84 (4.20-5.50) X10*6/uL Hgb 13.3 (12.0-16.0) g/dl Hct 39.2 (37.0-47.0) % MCV 81.0 (80.0-98.0) fL MCH 27.5 (27.0-33.0) pg MCHC 33.9 (31.0-35.0) g/dl RDW 12.6 (11.0-16.0) % Plt Count 258 D (160-400) X10*3/uL MPV 10.5 (9.4-12.3) fL Immature Gran % (Auto) 0.2 (0.0-0.4) % Neut % (Auto) 81.0 H (45-73) % Lymph % (Auto) 10.1 L (20-40) % [place] % (Auto) 5.6 (2-11) % Eos % (Auto) 1.9 (0-4) % Baso % (Auto) 1.2 (0-2) % Lymph # (Auto) 0.8 L (1.2-4.9) X10*3/uL [place] # (Auto) 0.5 (0.1-1.2) X10*3/uL Eos # (Auto) 0.2 (0.0-0.4) X10*3/uL Baso # (Auto) 0.1 (0.0-0.2) X10*3/uL Abs Immat Gran (auto) 0.02 (0.00-0.03) X10*3/uL Absolute Neuts (auto) 6.8 (2.0-8.3) x10*3/uL Absolute Nucleated RBC 0.000 (0.0-0.012) X10*3/uL Nucleated RBC % (auto) 0.0 (0.0-0.2) /100WBC Sodium 140 (135-145) mmol/L Potassium 3.8 (3.3-5.1) mmol/L Chloride 103 (96-108) mmol/L Carbon Dioxide 25 (22-29) mmol/L Anion Gap 16 (12-20) BUN 7 L (9-16) mg/dL Creatinine 0.84 (0.5-1.4) mg/dL Estim Creat Clear Calc 101.4 Estimated GFR > 60 Random Glucose 89 (60-115) mg/dL Calcium 10.0 D (8.4-10.2) mg/dL Total Bilirubin 1.5 H (0.0-1.0) mg/dL Direct Bilirubin 0.7 H (0.0-0.5) mg/dL AST 20 (5-31) U/L ALT 23 (0-31) U/L Alkaline Phosphatase 261 H (39-117) U/L Total Protein 7.9 (6.5-8.0) g/dL Albumin 4.6 (3.5-5.0) g/dL Lipase 64 (8-78) U/L Urine Color Yellow Urine Appearance Clear Urine pH 6.0 (5.0-9.0) Ur Specific [place] 1.015 (1.005-1.025) Urine Protein 100 (2+) H (Neg-Trace) mg/dL Urine Glucose (UA) Negative (Negative) mg/dL Urine Ketones 80 (Negative) mg/dL Urine Blood Negative (Negative) Urine Nitrite Negative (Negative) Ur Leukocyte Esterase Negative (Negative) Urine RBC 0-2 (0-2) /HPF Urine WBC 6-10 H (0-5) /HPF Ur Squamous Epith Cells 11-20 (0-2) /HPF Urine Bacteria 4+ (None Seen) Hyaline Casts 0-2 (0-2) /LPF Urine Test (NEGATIVE) 04/09/23 Range/Units 09:40 WBC (4.8-10.8) X10*3/uL RBC (4.20-5.50) X10*6/uL Hgb (12.0-16.0) g/dl Hct (37.0-47.0) % MCV (80.0-98.0) fL MCH (27.0-33.0) pg MCHC (31.0-35.0) g/dl RDW (11.0-16.0) % Plt Count (160-400) X10*3/uL MPV (9.4-12.3) fL Immature Gran % (Auto) (0.0-0.4) % Neut % (Auto) (45-73) % Lymph % (Auto) (20-40) % [place] % (Auto) (2-11) % Eos % (Auto) (0-4) % Baso % (Auto) (0-2) % Lymph # (Auto) (1.2-4.9) X10*3/uL [place] # (Auto) (0.1-1.2) X10*3/uL Eos # (Auto) (0.0-0.4) X10*3/uL Baso # (Auto) (0.0-0.2) X10*3/uL Abs Immat Gran (auto) (0.00-0.03) X10*3/uL Absolute Neuts (auto) (2.0-8.3) x10*3/uL Absolute Nucleated RBC (0.0-0.012) X10*3/uL Nucleated RBC % (auto) (0.0-0.2) /100WBC Sodium (135-145) mmol/L Potassium (3.3-5.1) mmol/L Chloride (96-108) mmol/L Carbon Dioxide (22-29) mmol/L Anion Gap (12-20) BUN (9-16) mg/dL Creatinine (0.5-1.4) mg/dL Estim Creat Clear Calc Estimated GFR Random Glucose (60-115) mg/dL Calcium (8.4-10.2) mg/dL Total Bilirubin (0.0-1.0) mg/dL Direct Bilirubin (0.0-0.5) mg/dL AST (5-31) U/L ALT (0-31) U/L Alkaline Phosphatase (39-117) U/L Total Protein (6.5-8.0) g/dL Albumin (3.5-5.0) g/dL Lipase (8-78) U/L Urine Color Urine Appearance Urine pH (5.0-9.0) Ur Specific [place] (1.005-1.025) Urine Protein (Neg-Trace) mg/dL Urine Glucose (UA) (Negative) mg/dL Urine Ketones (Negative) mg/dL Urine Blood (Negative) Urine Nitrite (Negative) Ur Leukocyte Esterase (Negative) Urine RBC (0-2) /HPF Urine WBC (0-5) /HPF Ur Squamous Epith Cells (0-2) /HPF Urine Bacteria (None Seen) Hyaline Casts (0-2) /LPF Urine Test NEGATIVE (NEGATIVE) Independent Interpretation I performed an independent interpretation of an: Plain X-Ray (Left shoulder: No acute pathology.) and Ultrasound (Abdominal ultrasound: No acute pathology.) Medications Administered Discontinued Medications Generic Name Dose Route Start Last Admin Trade Name Freq PRN Reason Stop Dose Admin Famotidine 20 mg 04/09/23 07:47 04/09/23 09:56 Famotidine/Pf 20 Mg/2 Ml Vial IVPUSH 04/09/23 07:48 20 mg ONCE ONE Administration Sodium Chloride 1,000 mls @ 999 mls/hr 04/09/23 08:19 04/09/23 12:37 Ns IV 04/09/23 09:19 Infused .Q1H1M ONE Infusion Iohexol 85 ml 04/09/23 11:31 04/09/23 11:31 Iohexol 350 Mg/Ml 100 Ml Infus..Btl IV 04/09/23 11:32 85 ml ONCE ONE Administration Morphine Sulfate 2 mg 04/09/23 07:47 04/09/23 09:54 Morphine Sulfate 2 Mg/Ml Cartridge IVPUSH 04/09/23 07:48 2 mg ONCE ONE Administration Protocol Morphine Sulfate 2 mg 04/09/23 12:20 04/09/23 12:30 Morphine Sulfate 2 Mg/Ml Cartridge IVPUSH 04/09/23 12:21 2 mg ONCE ONE Administration Protocol Ondansetron HCl 4 mg 04/09/23 07:47 04/09/23 09:54 Ondansetron Hcl 4 Mg/2 Ml Vial IVPUSH 04/09/23 07:48 4 mg ONCE ONE Administration Discharge Plan Discharge Clinical Impression: Abdominal pain, Gastritis Patient Disposition: Home, Self-Care Instructions: Gastritis (ED) Prescriptions: New omeprazole 40 mg capsule,delayed release(DR/EC) 40 mg PO DAILY Qty: 14 0RF ondansetron 4 mg tablet,disintegrating 4 mg PO Q8-12H PRN (Reason: nausea and vomiting) Qty: 7 0RF No Action albuterol sulfate 90 mcg/actuation HFA aerosol inhaler 2 puff inhalation Q4-6H PRN (Reason: bronchospasm) Qty: 8.5 8RF albuterol sulfate 2.5 mg /3 mL (0.083 %) solution for nebulization 2.5 mg inhalation Q6-8H PRN (Reason: shortness of breath or wheezing) Qty: 75 5RF oxcarbazepine [Trileptal] 600 mg tablet 600 mg PO BID Qty: 60 3RF naproxen sodium 550 mg tablet 550 mg PO BID PRN (Reason: pain) Qty: 30 1RF Rx Instructions: take one tablet BID for the first few days of cramping with menses, then stop. Repeat as needed each cycle multivitamin Tablet 1 tab PO DAILY Qty: 90 3RF Reguloid (psyllium husk-sucro) 3 gram/7 gram powder 1 tsp PO DAILY Qty: 538 5RF docusate sodium [Colace] 100 mg capsule 100 mg PO BID Qty: 60 2RF loratadine 10 mg tablet 10 mg PO DAILY Qty: 90 1RF famotidine 40 mg tablet 40 mg PO DAILY Qty: 30 5RF Rx Instructions: take 30 mins ac gabapentin 300 mg capsule 300 mg PO TID Qty: 14 0RF oxycodone 5 mg tablet 5 mg PO Q4H PRN (Reason: pain) Qty: 14 0RF Rx Instructions: Partial Fill upon patient request. sumatriptan succinate 50 mg tablet 50 mg PO DAILY polyvinyl alcohol [Artificial Tears (polyvin alc)] 1.4 % drops 1 drp ophthalmic (eye) DAILY melatonin 5 mg tablet 5 mg PO BEDTIME Mirena 20 mcg/24 hours (7 yrs) 52 mg intrauterine device 1 device intrauterine DAILY acetaminophen 325 mg tablet 650 mg PO Q6H PRN (Reason: Pain) trazodone 150 mg tablet 150 - 300 mg PO BEDTIME PRN (Reason: Insomnia) verapamil 40 mg tablet 40 mg PO BID erythromycin 5 mg/gram (0.5 %) ointment 1 appl ophthalmic (eye) DAILY Referrals: Mindy Hutchinson MD [Primary Care Provider] - Bladimir Steinberg MD [Physician] -
--- NOTE | 2023-04-09 08:54 | PC.NURSE ---
u/s at bedside. pt complaining of left sided abd pain. reports vomting in ed.
[2023-04-09 09:40] VITALS: BP 175/101; PULSE 96; RESP 18; TEMP 36.8; O2SAT 95
[2023-04-09 11:46] VITALS: BP 175/102; PULSE 96; RESP 20; TEMP 37.5; O2SAT 98
--- NOTE | 2023-04-09 13:47 | PC.NURSE ---
PT HAS NOT HAD ANY FURTHER EPISODES OF VOMITING, TOLERATED PO TRIAL THOUGH STATES SLIGHT GI UNEASE FROM PAIN MEDICATION. MD MADE AWARE, PT AGREEABLE TO DC.
--- NOTE | 2023-04-09 14:12 | PC.NURSE ---
pt ate crackers, water, and gingerale w/o vomiting. reports nausea improved and pain has lessened in abdomen. ambulates well
== END 2023-04-09 15:31 | disposition home or self-care (01) ==
PROVIDERS: Emergency Provider Emergency Medicine; PCP Internal Medicine
DX: K29.70 Gastritis, unspecified, without bleeding (principal); R10.10 Upper abdominal pain, unspecified; M25.512 Pain in left shoulder; R07.89 Other chest pain; M79.605 Pain in left leg; R60.0 Localized edema; R11.2 Nausea with vomiting, unspecified; Z79.899 Other long term (current) drug therapy; Z87.891 Personal history of nicotine dependence
CPT/HCPCS: 36415; 71045; 73030; 74177; 76705; 80048; 80076; 81001; 81025; 83690; 85025; 87086; 93971; 96361; 96374; 96375; 96376; 99285; J2270; J2405; Q9967

== ENCOUNTER 2023-04-19 14:36 | Outpatient (AMB) | payer OTHER, SELFPAY ==
--- NOTE | 2023-04-19 15:39 | AM.OFFWIN_ITS ---
Intake Vital Signs 04/19/23 15:43 BP 116/72 Blood Pressure Location Rt brachial Position Sitting Pulse 82 Pulse Source Pulse Oximeter Pulse Oximetry (%) 96 Oxygen Delivery Method Room Air Intake Visit Reasons: EP stomach pain/question on meds from ED (marco) Intake Note: Patient here because she recently had her gallbladder removed and was put on omeprazole while being on famotidine and is now taking both, residential needs a drs order to be able to discontinue omeprazole as Dr. Hutchinson had discontinued in september of last year and it does not work for pt. Patient Tobacco Use Status: Former Tobacco user Quit Date: 03/2022 Allergies amoxicillin [AMOXICILLIN] Allergy (Severe, Verified 04/19/23 16:15) ANAPHYLAXIS, swelling Penicillins [PENICILLINS] Allergy (Severe, Verified 04/19/23 16:15) ANAPHYLAXIS polyethylene glycol 3350 [From MIRALAX] Allergy (Severe, Verified 04/19/23 16:15) ANAPHYLAXIS sulindac [SULINDAC] Allergy (Severe, Verified 04/19/23 16:15) SWELLING senna Allergy (Intermediate, Verified 04/19/23 16:15) Unknown Medication List - Last Reconciled 04/19/23 by Aaron Hunter MD acetaminophen 650 mg PO Q6H PRN albuterol sulfate 90 mcg/actuation 2 puffs inhalation Q4-6H PRN albuterol sulfate 2.5 mg (3 mL) inhalation Q6-8H PRN docusate sodium (Colace) 100 mg PO BID erythromycin 1 appl ophthalmic (eye) DAILY famotidine 40 mg PO DAILY gabapentin 300 mg PO TID levonorgestrel (Mirena) 1 device intrauterine DAILY loratadine 10 mg PO DAILY melatonin 5 mg PO BEDTIME multivitamin 1 tab PO DAILY naproxen sodium 550 mg PO BID PRN omeprazole 40 mg PO DAILY ondansetron 4 mg PO Q8-12H PRN oxcarbazepine (Trileptal) 600 mg PO BID oxycodone 5 mg PO Q4H PRN polyvinyl alcohol 1.4% (Artificial Tears (polyvinyl alcohol)) 1 drp ophthalmic (eye) DAILY psyllium husk (with sugar) 3 gram/7 gram (Reguloid (psyllium husk-sucrose)) 1 tsp PO DAILY sumatriptan succinate 50 mg PO DAILY trazodone 150 - 300 mg PO BEDTIME PRN verapamil 40 mg PO BID Do you need a note to return to daycare/school/sports/work: No HPI EP stomach pain/question on meds from ED (marco) HPI Details 33-year-old female presents to the office for a sick visit. She is coming from the residential. Patient had a cholecystectomy a month ago. In her recent ER visit she was put on omeprazole. Patient is already taking famotidine. She would like to discontinue the omeprazole. Since the patient takes medications under supervision and lives in a residential, a doctor visit was necessary to discontinue the omeprazole. [facility] Medical History Asthma Benign tumor of breast Bleeding hemorrhoids Cholelithiasis Depression with anxiety Dysmenorrhea Ex-cigarette smoker Heel callus Migraine Mild intellectual disability Mild intermittent asthma in adult without complication Motion sickness Need for pneumococcal vaccination Obesity Porcelain gallbladder Prosthetic eye globe Right sided abdominal pain Vitamin D deficiency Surgical History History of benign neoplasm of breast History of cholecystectomy History of eye surgery Family History Mother No problems noted. Father No problems noted. Brother No problems noted. Brother No problems noted. Maternal Aunt Breast cancer Social History Household Members: Other Housing Other:: residential Are you a primary patient care to a significant other at home: No Alcohol intake: never Patient Tobacco Use Status: Former Tobacco user Quit Date: 03/2022 Tobacco use type: Cigarette Cigarettes Per Day: 0 e-Cigarette/Vaping Use: Never Used Second Hand Smoke Exposure: No service: No 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al status: disabled Gender identity: Female Cognitive needs: No Hearing needs: No Vision needs: No Female Reproductive History Menstrual Age of Menarche: 13 Physical Exam Vital Signs: Last Vital Signs Pulse 82 04/19/23 15:43 BP 116/72 04/19/23 15:43 Pulse Ox 96 04/19/23 15:43 Oxygen Delivery Method Room Air 04/19/23 15:43 Assessment & Plan Assessment & Plan (1) GERD (gastroesophageal reflux disease): Code(s): K21.9 - Gastro-esophageal reflux disease without esophagitis Plan: Omeprazole was discontinued. Patient was advised to continue the famotidine. Coding Level of Care Code Est Pt Level 3 (23644) Diagnoses GERD (gastroesophageal reflux disease) K21.9
[2023-04-19 15:43] VITALS: BP 116/72; PULSE 82; O2SAT 96
== END 2023-04-19 16:18 | disposition home or self-care (01) ==
PROVIDERS: PCP Internal Medicine; Visit Provider Internal Medicine
DX: K21.9 Gastro-esophageal reflux disease without esophagitis (principal)
CPT/HCPCS: 99213

== ENCOUNTER 2023-06-16 13:02 | Outpatient (AMB) | payer OTHER, SELFPAY ==
[2023-06-16 13:12] VITALS: BP 142/80; PULSE 86; O2SAT 97; BMI 33.2
--- NOTE | 2023-06-16 13:12 | A.OFFPC_ITS ---
Vital Signs 06/16/23 13:12 Height 5 ft 9 in Weight 225 lb BMI 33.2 BP 142/80 H Blood Pressure Location Rt brachial Position Sitting Pulse 86 Pulse Source Pulse Oximeter Pulse Oximetry (%) 97 Oxygen Delivery Method Room Air Intake Visit Reasons: Hemorrhoids Intake Note: pt is here for c/o hemorrhoids, ankle pain Cat Dog Or Other Pet Groomer Required: No Accompanied by: Self / Same As Patient Allergies amoxicillin [AMOXICILLIN] Allergy (Severe, Verified 01/25/24 16:18) ANAPHYLAXIS, swelling Penicillins [PENICILLINS] Allergy (Severe, Verified 01/25/24 16:18) ANAPHYLAXIS polyethylene glycol 3350 [From MIRALAX] Allergy (Severe, Verified 01/25/24 16:18) ANAPHYLAXIS sulindac [SULINDAC] Allergy (Severe, Verified 01/25/24 16:18) SWELLING senna Allergy (Intermediate, Verified 01/25/24 16:18) Unknown Medication List - Last Reconciled 06/16/23 by Mindy Hutchinson MD acetaminophen 650 mg PO Q6H PRN albuterol sulfate 90 mcg/actuation 2 puffs inhalation Q4-6H PRN albuterol sulfate 2.5 mg (3 mL) inhalation Q6-8H PRN docusate sodium (Colace) 100 mg PO BID erythromycin 1 appl ophthalmic (eye) DAILY famotidine 40 mg PO DAILY gabapentin 300 mg PO TID levonorgestrel (Mirena) 1 device intrauterine DAILY loratadine 10 mg PO DAILY melatonin 5 mg PO BEDTIME multivitamin 1 tab PO DAILY naproxen sodium 550 mg PO BID PRN omeprazole 40 mg PO DAILY ondansetron 4 mg PO Q8-12H PRN oxcarbazepine (Trileptal) 600 mg PO BID polyvinyl alcohol 1.4% (Artificial Tears (polyvinyl alcohol)) 1 drp ophthalmic (eye) DAILY psyllium husk (with sugar) 3 gram/7 gram (Reguloid (psyllium husk-sucrose)) 1 tsp PO DAILY sumatriptan succinate 50 mg PO DAILY trazodone 150 - 300 mg PO BEDTIME PRN verapamil 40 mg PO BID Tobacco use date assessed: 12/08/22 Dental Screening Dental Screen Date: 06/16/23 Did you have a dental visit in the last 12 months?: Yes Did you have a dental problem in the last 6 months where you did not have access to dental care?: No Was dental information given to patient?: Patient has dentist HPI HPI Comments History of Present Illness Details 34-year-old lady here today complaining of discomfort and rectal area with occasional itching and sensation of foreign body in her rectal area. Patient has also been constipated for several weeks now but denies any abdominal pain, no nausea vomiting but does complain of abdominal bloating. Sees occasional right bright red spots in her stool, no black stool. Complains of pain slight swelling in the back of her right foot, present for the last several days now. No history of trauma, strenuous exertion. Took naproxen only temporary relief. Has a pruritic rash under breasts and on groin.. 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 Father No problems noted. Brother No problems noted. Brother No problems noted. Maternal Aunt Breast cancer Social History Household Members: Other Housing Other:: assisted Are you a primary neonatal intensive care nurse to a significant other at home: No Alcohol intake: never Patient Tobacco Use Status: Former Tobacco user Quit Date: 03/2022 Tobacco use type: Cigarette Cigarettes Per Day: 0 Smoked in Last 30 Days: No e-Cigarette/Vaping Use: Never Used Second Hand Smoke Exposure: No Use of substances other than those prescribed or required for medical reasons: No Advance Directives: No Advance Directives Information Provided: No Patient : No service: No 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al status: disabled Gender identity: Female Cognitive needs: No Hearing needs: No Vision needs: No Female Reproductive History Menstrual Age of Menarche: 13 Questionnaire Thrive Questionnaire Date Thrive assessed: 12/08/22 LEYDA-7 AMB Questionnaire LEYDA-7 Date LEYDA - 7 assessed: 12/08/22 Source: Developed by Drs. Jett Oneal, Felisa River, Raudel Correa and colleagues, with an educational geraldine from [employer]. Review of Systems Const Denies fever(s) and Denies headache(s) Eyes Reports no additional complaints ENT Denies dizziness and Denies headache(s) Card Denies chest pain, Denies dyspnea and Denies dyspnea on exertion Resp Denies cough, Denies dyspnea and Denies dyspnea on exertion GI Reports as per HPI Musc Reports as per HPI Skin/Breast Reports as per HPI Neuro Denies dizziness, Denies headache(s), Denies focal weakness and Denies convulsions Physical exam (Primary Care) Vital Signs: Last Vital Signs Pulse 86 06/16/23 13:12 BP 142/80 H 06/16/23 13:12 Pulse Ox 97 06/16/23 13:12 Oxygen Delivery Method Room Air 06/16/23 13:12 BMI result Body Mass Index 33.2 Tobacco/Smoking Status: Tobacco use Status Tobacco use date assessed 12/08/22 06/16/23 13:20 Patient Tobacco Use Status Former Tobacco user 06/16/23 13:20 Tobacco use type Cigarette 06/16/23 13:20 e-Cigarette/Vaping Use Never Used 06/16/23 13:20 Thrive Assessment: Date of Thrive Assessment Date Thrive assessed 12/08/22 06/16/23 13:20 Const Other: But oriented x3, no acute cardiorespiratory distress ambulatory normal gait, 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 Nutritional Appearance: obese HENMT Head: Yes normocephalic Ears: external ears normal, TM's normal bilaterally and EAC's normal General nose exam: Normal external nose present Face and sinus: Yes face symmetric Mouth: Normal oral and palatal mucosa present, oropharynx normal and moist mucous membranes Eyes Other: Left eye prosthesis Neck Neck: Yes full ROM, Yes no lymphadenopathy and Yes supple Resp Auscultation: clear to auscultation bilaterally Cardio Other: S1-S2 present regular rate and rhythm GI Inspection: Yes obesity Palpation (GI): Soft to palpation, no guarding and no masses Auscultation: normal bowel sounds Rectal Exam - Female: normal sphincter tone and External hemorrhoid(s) present (Nonthrombosed) General: Yes deferred (Goes to OBGYN at [facility]) Skin Other: Moist erythematous patch under breast and on inguinal areas Neuro General: gait normal, tone normal, moves all extremities and no focal motor deficits Extrem Other: Slight swelling and tenderness on palpation over right Achilles tendon, decreased range of motion right foot due to pain Assessment and Plan Assessment & Plan (1) External hemorrhoids: Code(s): K64.4 - Residual hemorrhoidal skin tags Plan: Prescription sent for preparation H apply to affected area 3 times a day as needed, stay well-hydrated, increase dietary fiber and water intake, important to exercise regular (2) Erythema intertrigo: Code(s): L30.4 - Erythema intertrigo Plan: Keep areas under skin folds dry and clean at all times. Prescription sent for clotrimazole-betamethasone cream 1-0.5% to be applied sparingly to affected areas twice a day for no more than 10 days (3) Constipation: Code(s): K59.00 - Constipation, unspecified Qualifiers: Constipation type: unspecified constipation type Qualified Code(s): K59.00 - Constipation, unspecified (4) Right Achilles tendinitis: Code(s): M76.61 - Achilles tendinitis, right leg Plan: MassageAbsorbine unior +to affected joint twice a day as needed for pain , call if no improvement of symptoms Medications: New hydrocortisone 1% (Preparation H Hydrocortisone) 1 appl topical TID PRN 28.4 gra ms 0RF skin irritation/ painful hemorrhoid K64.4 - Residual hemorrhoidal skin tags hydrocortisone 1% (Preparation H Hydrocortisone) 1 appl topical TID PRN 28.4 grams 0RF skin irritation/ painful hemorrhoid K64.4 - Residual hemorrhoidal skin tags clotrimazole-betamethasone 1-0.05 % 1 appl topical BID 45 grams 0RF Rash under breast clotrimazole-betamethasone 1-0.05 % 1 appl topical BID 45 grams 0RF Rash under breast clotrimazole-betamethasone 1-0.05 % 1 appl topical BID 45 grams 0RF Rash under breast hydrocortisone 1% (Preparation H Hydrocortisone) 1 appl topical TID PRN 28.4 grams 0RF skin irritation/ painful hemorrhoid K64.4 - Residual hemorrhoidal skin tags Discontinued psyllium husk (with sugar) 3 gram/7 gram Discontinued Reason: Doctor's Order 1 tsp PO DAILY 538 grams 5RF Coding Level of Care Code Est Pt Level 4 (01559) Diagnoses External hemorrhoids K64.4 Erythema intertrigo L30.4 Constipation, unspecified constipation type K59.00 Constipation type: unspecified constipation type Right Achilles tendinitis M76.61
== END 2023-06-16 14:39 | disposition home or self-care (01) ==
PROVIDERS: PCP Internal Medicine; Visit Provider Internal Medicine
DX: K64.4 Residual hemorrhoidal skin tags (principal); L30.4 Erythema intertrigo; K59.00 Constipation, unspecified; M76.61 Achilles tendinitis, right leg
CPT/HCPCS: 99499

== ENCOUNTER 2023-07-31 12:28 | Outpatient (AMB) | payer OTHER, SELFPAY ==
--- NOTE | 2023-07-31 12:31 | MHC.PC.OV ---
Vital Signs 07/31/23 12:39 Height 5 ft 9 in Weight 227 lb BMI 33.5 BP 130/70 Blood Pressure Location Rt brachial Position Sitting Pulse 88 Pulse Source Pulse Oximeter Pulse Oximetry (%) 95 Oxygen Delivery Method Room Air Intake Visit Reasons: Annual PE Intake Note: Pt is here today for her PE Allergies amoxicillin [AMOXICILLIN] Allergy (Severe, Verified 08/18/23 03:25) ANAPHYLAXIS, swelling Penicillins [PENICILLINS] Allergy (Severe, Verified 08/18/23 03:25) ANAPHYLAXIS polyethylene glycol 3350 [From MIRALAX] Allergy (Severe, Verified 08/18/23 03:25) ANAPHYLAXIS sulindac [SULINDAC] Allergy (Severe, Verified 08/18/23 03:25) SWELLING senna Allergy (Intermediate, Verified 08/18/23 03:25) Unknown Medication List - Last Reconciled 08/18/23 by Mindy Hutchinson MD albuterol sulfate 90 mcg/actuation 2 puffs inhalation Q6H PRN albuterol sulfate 2.5 mg (3 mL) inhalation Q6H PRN clotrimazole-betamethasone 1-0.05 % 1 appl topical BID dextromethorphan-guaifenesin 5-100 mg/5 mL (Robitussin Cough-Chest Congestion DM) 10 mL PO Q6H PRN docusate sodium (Colace) 100 mg PO BID erythromycin 1 appl ophthalmic (eye) DAILY famotidine 40 mg PO DAILY hydrocortisone 1% (Preparation H Hydrocortisone) 1 appl topical TID PRN levonorgestrel (Mirena) 1 device intrauterine DAILY loratadine 10 mg PO DAILY melatonin 5 mg PO BEDTIME menthol-thymol (Absorbine Jr. Original topical liniment) 1 appl topical TID PRN multivitamin 1 tab PO DAILY naproxen sodium 550 mg PO BID PRN oxcarbazepine (Trileptal) 600 mg PO BID polyvinyl alcohol 1.4% (Artificial Tears (polyvinyl alcohol)) 1 drp ophthalmic (eye) DAILY sumatriptan succinate 50 mg PO DAILY trazodone 150 - 300 mg PO BEDTIME PRN verapamil 40 mg PO BID Tobacco use date assessed: 07/31/23 Dental Screening Dental Screen Date: 07/31/23 Did you have a dental visit in the last 12 months?: Yes Did you have a dental problem in the last 6 months where you did not have access to dental care?: No Was dental information given to patient?: Patient has dentist HPI Annual PE HPI Details 33-year-old lady with mild intermittent asthma, mild intellectual disability, migraine, GERD , obesity, history of porcelain gallbladder, and has a prostatic left eye, here today for physical exam. 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 Father No problems noted. Brother No problems noted. Brother No problems noted. Maternal Aunt Breast cancer Social History Household Members: Other Housing Other:: care home Are you a primary health care coach to a significant other at home: No Alcohol intake: never Patient Tobacco Use Status: Former Tobacco user Quit Date: 03/2022 Tobacco use type: Cigarette Cigarettes Per Day: 0 e-Cigarette/Vaping Use: Never Used Second Hand Smoke Exposure: No service: No 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al status: disabled Gender identity: Female Cognitive needs: No Hearing needs: No Vision needs: No Female Reproductive History Menstrual Age of Menarche: 13 Questionnaire PHQ-9 Over the last 2 weeks, how often have you been bothered by any of the following problems? Depression Screening Interpretation: Negative Depression Screening Done: Yes Source: Developed by Drs. Jett Oneal, Felisa River, Raudel Correa and colleagues, with an educational geraldine from [employer]. Thrive Questionnaire Date Thrive assessed: 12/08/22 AUDIT C Alcohol Use Questionnaire (AUDIT-C) 1. How often do you have a drink containing alcohol?: Never Total Score: 0 LEYDA-7 AMB Questionnaire LEYDA-7 Date LEYDA - 7 assessed: 12/08/22 Source: Developed by Drs. Jett Oneal, Felisa River, Raudel Correa and colleagues, with an educational geraldine from [employer]. ACT Questionnaire In the past 4 weeks, how much of the time did your asthma keep you from getting as much done at work, school or at home?: None of the time During the past 4 weeks, how often have you had shortness of breath?: Not at all During the past 4 weeks, how often did your asthma symptoms wake you up at night or earlier than usual in the morning?: Not at all During the past 4 weeks, how often have you had to use your rescue inhaler or nebulizer medication?: Not at all How would you rate your asthma control during the past 4 weeks?: Completely controlled Score: 25 Review of Systems Const Denies chills, Denies fever(s) and Denies headache(s) Eyes Reports no additional complaints and Denies change in vision ENT Denies dizziness and Denies headache(s) Card Denies chest pain, Denies dyspnea and Denies dyspnea on exertion Resp Denies cough, Denies dyspnea and Denies dyspnea on exertion GI Details: Obese, soft, with normal bowel sounds, nontender to palpation Denies hematochezia and Denies change in bowel habits Details: Goes to [facility] for her routine Pap and pelvic exam Reports no additional complaints Musc Denies back pain and Denies limited range of motion Skin/Breast Denies breast pain, Denies breast mass and Denies rash Neuro Denies dizziness, Denies headache(s), Denies focal weakness and Denies convulsions Psych Reports no additional complaints Endo Reports no additional complaints Jam/Lymph Reports no additional complaints Aller/Immun Reports no additional complaints Physical exam (Primary Care) Vital Signs: Last Vital Signs Pulse 88 07/31/23 12:39 BP 130/70 07/31/23 12:39 Pulse Ox 95 07/31/23 12:39 Oxygen Delivery Method Room Air 07/31/23 12:39 BMI result Body Mass Index 33.5 BMI Assessment/Plan discussion: High BMI High, discussed plan: weight reduction, dietary and physical activity Tobacco/Smoking Status: Tobacco use Status Tobacco use date assessed 07/31/23 07/31/23 12:32 Patient Tobacco Use Status Former Tobacco user 10/30/23 12:32 Tobacco use type Cigarette 07/31/23 12:32 e-Cigarette/Vaping Use Never Used 07/31/23 12:32 Depression Screening Interpretation: Negative Thrive Assessment: Date of Thrive Assessment Date Thrive assessed 12/08/22 07/31/23 12:32 Const Other: But oriented x3, no acute cardiorespiratory distress ambulatory normal gait, hotel assistant 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 Nutritional Appearance: obese Orientation/consciousness: patient oriented x3 HENMT Head: Yes normocephalic Ears: external ears normal, TM's normal bilaterally and EAC's normal General nose exam: Normal external nose present Face and sinus: Yes face symmetric Mouth: Normal oral and palatal mucosa present, oropharynx normal and moist mucous membranes Eyes Other: Left eye prosthesis Periorbital: periorbital findings normal Conjunctivae: conjunctivae normal Sclerae: sclerae normal Neck Neck: Yes full ROM, Yes no lymphadenopathy and Yes supple Chest Chest palpation & inspection: normal inspection of the chest Breast/axilla palpation: normal palpation of the breasts Resp Auscultation: clear to auscultation bilaterally Cardio Other: S1-S2 present regular rate and rhythm GI Inspection: Yes obesity Palpation (GI): Soft to palpation, no guarding and no masses General: Yes no CVA tenderness and Yes deferred (Goes to OBGYN at [facility]) Back/Spine/Pelvis Back: no CVA tenderness and No back tenderness Skin General skin exam: no rashes or lesions noted and dry skin Neuro General: patient oriented x3, gait normal, tone normal, moves all extremities and no focal motor deficits Extrem General: Yes full ROM, Yes no joint enlargement, Yes no clubbing, cyanosis or edema and Yes normal gait Psych Appearance: grossly normal and well kempt Mental Status: mental status grossly normal Speech and movement: Normal speech and movement present Affect: normal affect Attitude: cooperative Office Procedures Flu Questionnaire Does the patient have a severe egg allergy?: No Does the patient have severe life threatening allergies?: No Does the patient have a fever or illness today?: No Has the patient ever had Guillain-[place] Syndrome?: No Has the patient ever had any past reaction to a flu shot?: No Immunizations flu vacc [id number] 6mos up(PF) 60 mcg(15 mcgx4)/0.5 mL IM syringe Performing Provider: Mindy Hutchinson MD Performing Location: [facility] Administered by: Dior Shah CMA on 07/31/23 12:58 Dose Route Admin Location Dispensed Lot Number Expiration Date 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 Recommended dental visit every 6 months and regular eye exams, at least every 2 years. Take adequate calcium in diet and vitamin-D 3 at 2000 IU per cap once a day, in addition to weight-bearing exercises to help maintain good muscle tone and weight control. Instructed to do self-breast exam, and recommended to get yearly mammogram, starting at age 40. Flu vaccine given today, up-to-date with her Tdap and pneumococcal vaccine. Advised to get the new COVID booster vaccine (2) Vitamin D deficiency: Code(s): E55.9 - Vitamin D deficiency, unspecified Plan: Repeat vitamin-D level ordered (3) Mild intermittent asthma in adult without complication: Code(s): J45.20 - Mild intermittent asthma, uncomplicated Plan: Stable and controlled on present treatment, has albuterol inhaler available for use as needed for episodes of bronchospasm (4) GERD (gastroesophageal reflux disease): Code(s): K21.9 - Gastro-esophageal reflux disease without esophagitis Plan: Currently on famotidine 40 mg daily, stressed importance of avoidance of triggers for heartburn (5) Migraine: Comment: Seen by Dr. Connell Code(s): G43.909 - Migraine, unspecified, not intractable, without status migrainosus Qualifiers: Migraine type: migraine (< 15 days per month) without aura Status migrainosus presence: without status migrainosus Intractability: not intractable Qualified Code(s): G43.009 - Migraine without aura, not intractable, without status migrainosus Plan: Currently on verapamil for prophylaxis. (6) Depression with anxiety: Comment: Followed at [facility] Code(s): F41.8 - Other specified anxiety disorders Plan: Followed by psychiatry Orders: Orders Lipid Panel 08/04/23 E55.9 - Vitamin D deficiency, unspecified, J45.20 - Mild intermittent asthma, uncomplicated, Z00.01 - Encounter for general adult medical examination with abnormal findings Liver Panel 08/04/23 E55.9 - Vitamin D deficiency, unspecified, J45.20 - Mild intermittent asthma, uncomplicated, Z00.01 - Encounter for general adult medical examination with abnormal findings Vitamin D 25-OH Total 08/04/23 E55.9 - Vitamin D deficiency, unspecified, J45.20 - Mild intermittent asthma, uncomplicated, Z00.01 - Encounter for general adult medical examination with abnormal findings Influenza [id number] Immunization 07/31/23 Z23 - Encounter for immunization Glucose Fasting 08/04/23 E55.9 - Vitamin D deficiency, unspecified, J45.20 - Mild intermittent asthma, uncomplicated, Z00.01 - Encounter for general adult medical examination with abnormal findings Medications: Changed From albuterol sulfate 90 mcg/actuation 2 puffs inhalation Q4-6H PRN 8.5 grams 8RF bronchospasm To albuterol sulfate 90 mcg/actuation 2 puffs inhalation Q6H PRN 8.5 grams 8RF bronchospasm From menthol-thymol 1 appl topical BID-TID PRN 480 mL 0RF pain To menthol-thymol (Absorbine Jr. Original topical liniment) 1 appl topical TID PRN 480 mL 2RF pain From albuterol sulfate 2.5 mg (3 mL) inhalation Q6-8H PRN 75 mL 5RF shortness of breath or wheezing To albuterol sulfate 2.5 mg (3 mL) inhalation Q6H PRN 75 mL 5RF shortness of breath or wheezing Coding Level of Care Code Est Pt Prev Care 18-39y([id number]) Diagnoses Annual visit for general adult medical examination with abnormal findings Z00.01 Vitamin D deficiency E55.9 Mild intermittent asthma in adult without complication J45.20 GERD (gastroesophageal reflux disease) K21.9 Migraine without aura and without status migrainosus, not intractable G43.009 Migraine type: migraine (< 15 days per month) without aura Status migrainosus presence: without status migrainosus Intractability: not intractable Depression with anxiety F41.8
[2023-07-31 12:39] VITALS: BP 130/70; PULSE 88; O2SAT 95; BMI 33.5
== END 2023-07-31 13:42 | disposition home or self-care (01) ==
PROVIDERS: Visit Provider Internal Medicine
DX: Z23 Encounter for immunization (principal)
CPT/HCPCS: 90471; 90686; 99395

== ENCOUNTER 2023-08-01 13:16 | Outpatient (AMB) | payer OTHER, SELFPAY ==
--- NOTE | 2023-08-01 13:17 | MHC.OFFVIS ---
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 Water Quality Control Engineer: Water Quality Control Engineer Present (Bri) Accompanied by: Other Relationship Allergies amoxicillin [AMOXICILLIN] Allergy (Severe, Verified 08/01/23 13:21) ANAPHYLAXIS, swelling Penicillins [PENICILLINS] Allergy (Severe, Verified 08/01/23 13:21) ANAPHYLAXIS polyethylene glycol 3350 [From MIRALAX] Allergy (Severe, Verified 08/01/23 13:21) ANAPHYLAXIS sulindac [SULINDAC] Allergy (Severe, Verified 08/01/23 13:21) SWELLING senna Allergy (Intermediate, Verified 08/01/23 13:21) Unknown HPI HPI Comments History of Present Illness Details She is a premenopausal woman presenting for annual examination. Accompanied by Yosvany Samayoa, Furniture Mover Helper. Doing well with concerns: pelvic cramping, pain and discharge with her IUD. She is not sexually active. She wants to try the patch. She is not eating healthy, no regular exercise. FH limited, no contact. Last pap smear 07/2022, was negative. 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 Father No problems noted. Brother No problems noted. Brother No problems noted. Maternal Aunt Breast cancer Social History Household Members: Other Housing Other:: senior living Are you a primary childcare worker to a significant other at home: No Alcohol intake: never Patient Tobacco Use Status: Former Tobacco user Quit Date: 03/2022 Tobacco use type: Cigarette Cigarettes Per Day: 0 e-Cigarette/Vaping Use: Never Used Second Hand Smoke Exposure: No service: No 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al status: disabled Gender identity: Female Cognitive needs: No Hearing needs: No Vision needs: No Female Reproductive History Menstrual Age of Menarche: 13 control method: progestin IUCD (Mirena 09/2021) Total pregnancies: 1 Number of Living Children: 0 Ab spontaneous: 1 Date of last pap smear: 07/28/22 (neg pap and hpv) Review of Systems Const All systems reviewed & are unremarkable except as noted in HPI and below Reports as per HPI Eyes Reports no additional complaints ENT Reports no additional complaints Card Reports no additional complaints Resp Reports no additional complaints GI Reports as per HPI and Reports no additional complaints Reports as per HPI Musc Reports no additional complaints Skin/Breast Reports as per HPI Neuro Reports no additional complaints Psych Reports no additional complaints Endo Reports no additional complaints Jam/Lymph Reports no additional complaints Aller/Immun Reports no additional complaints Physical Exam Vital Signs: Last Vital Signs BP 122/84 08/01/23 13:20 BMI result Body Mass Index 34.0 Const General: cooperative, healthy appearing, no acute distress, well developed and alert Orientation/consciousness: patient oriented x3 HEENT Head: Yes normal to inspection Eyes General: appearance normal, both eyes and all related structures Neck Neck: Yes normal visual inspection Thyroid: Thyroid normal Chest Chest palpation & inspection: normal inspection of the chest and other (no puckering, dimpling, peau de orange, retraction, discharge, masses) Breast/axilla inspection: normal inspection of the breasts Breast/axilla palpation: normal palpation of the breasts Resp Effort & Inspection: normal respiratory effort GI Inspection: Yes normal to inspection Palpation (GI): Soft to palpation Rectal Exam - Female: deferred General: Yes bladder normal to palpation External Female Exam: normal external appearance and normal appearance of the urethra Speculum Exam - Vagina: normal appearance of the vagina, normal palpation and normal vaginal discharge Speculum Exam - Cervix: normal appearance of the cervix, normal palpation and Other cervical findings present (IUD palpable at the os) Bimanual exam- vagina & uterus: normal bimanual exam, normal palpation, uterine size normal, bladder normal to palpation, normal palpation and non-tender Bimanual Exam- Adnexa, other: no masses Skin General skin exam: no rashes or lesions noted Rashes: no rashes Neuro General: patient oriented x3 Cognition (Neuro): normal cognition Extrem General: Yes normal to inspection Psych Attitude: cooperative Thought process: Normal thought process present Assessment & Plan Assessment & Plan (1) Vaginal discharge: Code(s): N89.8 - Other specified noninflammatory disorders of vagina (2) Pelvic pain: Code(s): R10.2 - Pelvic and perineal pain (3) IUD surveillance: Code(s): Z30.431 - Encounter for routine checking of intrauterine contraceptive device Plan Discussed: Current recommendations for pap smears per ASCCP guidelines. Breast awareness and periodic breast exams. Maintain a healthy lifestyle including a well balanced diet and routine exercise. Use condoms for STI and prevention. Plan US for IUD surveillance and pelvic pain, cultures. Follow up in person for results. Advised not to wait for evaluations if having pain. If pain is severe report to the ED. OTC comfort measures. All of her questions and concerns were addressed to the best of my ability. RTO in one year for annual tailor men's ready to wear examination. Orders: Orders Bacterial Vaginosis Panel Today R10.2 - Pelvic and perineal pain, Z30.431 - Encounter for routine checking of intrauterine contraceptive device CT NG by PCR Today R10.2 - Pelvic and perineal pain, Z30.431 - Encounter for routine checking of intrauterine contraceptive device US pelvic and transvaginal Today R10.2 - Pelvic and perineal pain, Z30.431 - Encounter for routine checking of intrauterine contraceptive device Coding Level of Care Code Est Pt Prev Care 18-39y(20957) Diagnoses Vaginal discharge N89.8 Pelvic pain R10.2 IUD surveillance Z30.431
[2023-08-01 13:20] VITALS: BP 122/84; BMI 34.0
== END 2023-08-01 14:05 | disposition home or self-care (01) ==
LOC: HO.HWS 13:16
PROVIDERS: PCP Internal Medicine; Visit Provider Advanced Practice Midwife
DX: Z01.419 Encounter for gynecological examination (general) (routine) without abnormal findings (principal); N89.8 Other specified noninflammatory disorders of vagina; R10.2 Pelvic and perineal pain; Z30.431 Encounter for routine checking of intrauterine contraceptive device
CPT/HCPCS: 99395

== ENCOUNTER 2023-08-01 13:16 | Outpatient (REF) | payer OTHER, SELFPAY ==
[2023-08-02 01:17] LABS: CT PCR NOT DETECTED (Not Detect.); NG PCR NOT DETECTED (Not Detect.)
[2023-08-02 11:19] LABS: BV Int Neg Control Negative (Negative); BV Int Pos Control Positive (Positive)
== END 2023-08-01 13:17 | disposition home or self-care (01) ==
LOC: HO.LAB 13:16
PROVIDERS: PCP Internal Medicine; Visit Provider Advanced Practice Midwife
DX: Z30.431 Encounter for routine checking of intrauterine contraceptive device (principal); R10.2 Pelvic and perineal pain; N89.8 Other specified noninflammatory disorders of vagina
CPT/HCPCS: 0353U; 87480; 87510; 87660; 99395

== ENCOUNTER 2023-08-01 13:53 | Outpatient (REF) | payer OTHER, SELFPAY | END 2023-08-01 13:54 | disposition home or self-care (01) | LOC: HO.LNP 13:53 | PROVIDERS: Visit Provider Advanced Practice Midwife | DX: Z13.89 Encounter for screening for other disorder (principal) ==

== ENCOUNTER 2023-08-04 09:09 | Outpatient (REF) | payer OTHER, SELFPAY ==
[2023-08-04 12:13] LABS: Alanine Aminotransferase 12 U/L (0-31); Albumin Level 4.3 g/dL (3.5-5.0); Alkaline Phosphatase 70 U/L (39-117); Aspartate Amino Transferase 12 U/L (5-31); Bilirubin Direct 0.2 mg/dL (0.0-0.5); Bilirubin Total 0.3 mg/dL (0.0-1.0); Cholesterol 184 mg/dL (<200); Glucose Fasting 90 mg/dL (60-99); HDL Cholesterol 76 mg/dL (>40); LDL Cholesterol Calculated 97 mg/dL (<100); Total Protein 7.1 g/dL (6.5-8.0); Triglycerides 57 mg/dL (<150); Vitamin D 25-OH Total 26.2 ng/mL (>30)
== END 2023-08-04 09:10 | disposition home or self-care (01) ==
LOC: HO.HMGCLDS 09:09
PROVIDERS: PCP Internal Medicine; Visit Provider Internal Medicine
DX: Z00.01 Encounter for general adult medical examination with abnormal findings (principal); E55.9 Vitamin D deficiency, unspecified; J45.20 Mild intermittent asthma, uncomplicated
CPT/HCPCS: 36415; 80061; 80076; 82306; 82947

== ENCOUNTER 2023-08-09 16:02 | Outpatient (REF) | payer OTHER, SELFPAY ==
--- NOTE | ~2023-08-09 | US_ITS ---
EXAMINATION:US pelvic and transvaginal CLINICAL INFORMATION: Reason for Exam R10.2 - Pelvic and perineal pain COMPARISON: 2021 LMP: July 06 FINDINGS: UTERUS: The uterus is anteverted. Size: 9.2 x 4.9 x 5.9 cm. Uterine mass: There is no uterine mass. Cervix: Grossly unremarkable. Endometrium: No ultrasound evidence of endometrial lesion. endometrial thickness measures there is IUD in place properly positioned. ADNEXA: Normal Right ovary: Normal in size. Left ovary: Normal in size. Dominant follicle left ovary 1.8 cm. Doppler exam: Normal Doppler flow identified in both ovaries. FREE FLUID: Trace amount of free fluid. OTHER FINDINGS: None US/US pelvic and transvaginal IMPRESSION: * IUD in place properly positioned. * Dominant follicle left ovary 1.8 cm. Physiologic Exam otherwise normal. *
== END 2023-08-09 16:03 | disposition home or self-care (01) ==
LOC: HO.HMGCX 16:02
PROVIDERS: PCP Internal Medicine; Visit Provider Advanced Practice Midwife
DX: Z30.431 Encounter for routine checking of intrauterine contraceptive device (principal); R10.2 Pelvic and perineal pain
CPT/HCPCS: 76830; 76856

== ENCOUNTER 2023-08-29 14:38 | Outpatient (AMB) | payer OTHER, SELFPAY ==
--- NOTE | 2023-08-29 14:42 | A.OFFVIS_ITS ---
Intake Vital Signs 08/29/23 14:44 Height 5 ft 9 in Weight 230 lb BMI 34.0 BP 120/78 Intake Visit Reasons: US follow up Allergies amoxicillin [AMOXICILLIN] Allergy (Severe, Verified 08/29/23 14:42) ANAPHYLAXIS, swelling Penicillins [PENICILLINS] Allergy (Severe, Verified 08/29/23 14:42) ANAPHYLAXIS polyethylene glycol 3350 [From MIRALAX] Allergy (Severe, Verified 08/29/23 14:42) ANAPHYLAXIS sulindac [SULINDAC] Allergy (Severe, Verified 08/29/23 14:42) SWELLING senna Allergy (Intermediate, Verified 08/29/23 14:42) Unknown HPI HPI Comments History of Present Illness Details Patient is here today for her test results of her ultrasound, due to pelvic cramping and pain. Currently IUD user and not sexually active. She presents today with her staff associate programmer analyst-Yosvany. She still has ongoing discomfort and requests that her IUD be removed, as she feels her pain is contributed to the IUD placed. She is not sexually active. She reports she did well with control in the past in other methods. Her program requires her to maintain some form of control. She would like to restart a control pill. She denies any contraindications to control such as: migraines with aura, history of DVT or pulmonary emboli, high blood pressure, liver disease, thrombolic disorders, Lupus, +SATHISH, breast cancer, or smoking. 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 Father No problems noted. Brother No problems noted. Brother No problems noted. Maternal Aunt Breast cancer Social History Household Members: Other Housing Other:: skilled nursing Are you a primary care mgr to a significant other at home: No Alcohol intake: never Patient Tobacco Use Status: Former Tobacco user Quit Date: 03/2022 Tobacco use type: Cigarette Cigarettes Per Day: 0 e-Cigarette/Vaping Use: Never Used Second Hand Smoke Exposure: No service: No 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al status: disabled Gender identity: Female Cognitive needs: No Hearing needs: No Vision needs: No Female Reproductive History Menstrual Age of Menarche: 13 Review of Systems Const All systems reviewed & are unremarkable except as noted in HPI and below Physical Exam Vital Signs: Last Vital Signs BP 120/78 08/29/23 14:44 BMI result Body Mass Index 34.0 Const General: cooperative, healthy appearing and no acute distress Orientation/consciousness: patient oriented x3 GI Inspection: Yes normal to inspection Palpation (GI): Soft to palpation and Other GI palpation findings present (Nontender) Rectal Exam - Female: visual inspection normal General: Yes bladder normal to palpation External Female Exam: normal appearance of the urethra Speculum Exam - Vagina: normal appearance of the vagina, normal palpation and normal vaginal discharge Speculum Exam - Cervix: normal appearance of the cervix and normal palpation Bimanual exam- vagina & uterus: normal bimanual exam, normal palpation, uterine size normal, bladder normal to palpation, normal palpation, uterine shape normal and non-tender Bimanual Exam- Adnexa, other: normal adnexae Neuro General: patient oriented x3 Office Procedures Contraception Insert/Removal Details Details: The patient presents today for a IUD removal. She is planning to start OCP's. She was counseled regarding the removal of her IUD. She was consented for the procedure along with anticipatory guidance for the removal and the consents form was signed. She desires to proceed with the IUD removal. IUD Removal Procedure: The patient was placed in the dorsal lithotomy position. A speculum was inserted vaginally and the cervix and strings were NOT visualized at the os. The cervix was cleansed with Betadine. A Bozemen forcep was utilized, the strings were grasped in the cervical canal and gently tugged out, removing the IUD device intact. Minimal bleeding was observed. All of the equipment was removed. The patient tolerated the procedure well and left the office in good condition. IUD Removal Information: You may have light bleeding for several days, tapering off to a brown or pink color. Mild cramping after removal is common. If not allergic, you may take an over the counter mild analgesic for the discomfort, such as Tylenol or Advil (use dosing and frequency per the manufacturers recommendations). Use of condoms for prevention of STI's is also recommended, if indicated. 36225 - Removal Results Reviewed Results Reviewed: [facility] [address] [place] [address] Ultrasound Report Signed Patient: Cassidy Cartwright MR#: [id number] : [address]: Debbie Franco CNM Ordering Physician: Debbie Franco CNM Date of Service: 08/09/23 Procedure(s): US pelvic and transvaginal Accession Number(s): [id number] cc: Mindy Hutchinson MD; Debbie Franco CNM~ EXAMINATION:US pelvic and transvaginal CLINICAL INFORMATION: Reason for Exam R10.2 - Pelvic and perineal pain COMPARISON: 2021 LMP: July 06 FINDINGS: UTERUS: The uterus is anteverted. Size: 9.2 x 4.9 x 5.9 cm. Uterine mass: There is no uterine mass. Cervix: Grossly unremarkable. Endometrium: No ultrasound evidence of endometrial lesion. endometrial thickness measures there is IUD in place properly positioned. ADNEXA: Normal Right ovary: Normal in size. Left ovary: Normal in size. Dominant follicle left ovary 1.8 cm. Doppler exam: Normal Doppler flow identified in both ovaries. FREE FLUID: Trace amount of free fluid. OTHER FINDINGS: None US/US pelvic and transvaginal IMPRESSION: * IUD in place properly positioned. * Dominant follicle left ovary 1.8 cm. Physiologic Exam otherwise normal. Dictated By: Arthur Bello MD Assessment & Plan Assessment & Plan (1) Pelvic pain: Code(s): R10.2 - Pelvic and perineal pain (2) Encounter for IUD removal: Code(s): Z30.432 - Encounter for removal of intrauterine contraceptive device (3) BCP ( control pills) initiation: Code(s): Z30.011 - Encounter for initial prescription of contraceptive pills (4) Encounter to discuss test results: Code(s): Z71.2 - Person consulting for explanation of examination or test findings Plan Discussed ultrasound findings small follicle noted, IUD in place. See notes for IUD removal counseling. Use of naproxen for pelvic cramping. Control Counseling Use and side effects of control: Instructed to start the pill within the first 5 days of the menstrual period. Recommended to take pill at same time every day and with food to prevent stomach upset. Switch to bedtime intake with food if still experiencing nausea. Consider setting the cell phone for alerts as a reminder to take the pill at the same time. Use a back up method (condoms or abstinence if needed) if any late or missed doses until the end of the pill pack. Take the dose as soon as possible, and take your regular pill on time. If you miss the pill often, then consider another option of control. Always use condoms for STI prevention if indicated. Instructed patient to take for at least 3 months the body is acclimated to it. Most side effects go away with time in the first three months. Warnings: go to ED if and loss of vision/blindness, severe headache, chest pain or difficulty breathing, severe abdominal pain, or any pain or swelling in an extremity. Return in 3 months for pill check, or sooner if any concerns. All of her questions and concerns were addressed to the best of my ability and shared decision making. She is agreeable to plan of care. Medications: New desogestrel-ethinyl estradiol 0.15-0.03 mg (Apri) 1 tab PO DAILY 90 days 90 tabs 0RF Coding Level of Care Code Procedure Only Diagnoses Pelvic pain R10.2 Encounter for IUD removal Z30.432 BCP ( control pills) initiation Z30.011 Encounter to discuss test results Z71.2 CPT Codes Details - Contraception: 09640 - Removal ([id number]) Comment coding for complex visit, IUD removal added to it.
[2023-08-29 14:44] VITALS: BP 120/78; BMI 34.0
== END 2023-08-29 15:33 | disposition home or self-care (01) ==
LOC: HO.HWS 14:38
PROVIDERS: PCP Internal Medicine; Visit Provider Advanced Practice Midwife
DX: Z30.432 Encounter for removal of intrauterine contraceptive device (principal)
CPT/HCPCS: 58301

== ENCOUNTER → 2023-08-29 14:38 | Outpatient (BNVA) | payer OTHER, SELFPAY | PROVIDERS: PCP Internal Medicine; Visit Provider Advanced Practice Midwife | DX: Z30.432 Encounter for removal of intrauterine contraceptive device (principal); Z30.011 Encounter for initial prescription of contraceptive pills; Z71.2 Person consulting for explanation of examination or test findings; R10.2 Pelvic and perineal pain | CPT/HCPCS: 58301 ==

== ENCOUNTER 2023-11-13 16:11 | Outpatient (AMB) | payer OTHER, SELFPAY ==
[2023-11-13 16:34] VITALS: BP 122/76; PULSE 82; TEMP 36.6; O2SAT 98; BMI 34.0
--- NOTE | 2023-11-13 16:34 | AM.OFFWIN_ITS ---
Intake Vital Signs 11/13/23 16:34 Height 5 ft 9 in Weight 230 lb BMI 34.0 BP 122/76 Blood Pressure Location Lt brachial Position Sitting Pulse 82 Pulse Source Pulse Oximeter Temp 97.8 F Temp Source Oral Pulse Oximetry (%) 98 Intake Visit Reasons: EST/left side pain (lobby) Intake Note: pt is here for left side pain, patient states some pain with urination for the last few days Patient Tobacco Use Status: Former Tobacco user Quit Date: 03/2022 Allergies amoxicillin [AMOXICILLIN] Allergy (Severe, Verified 11/13/23 17:59) ANAPHYLAXIS, swelling Penicillins [PENICILLINS] Allergy (Severe, Verified 11/13/23 17:59) ANAPHYLAXIS polyethylene glycol 3350 [From MIRALAX] Allergy (Severe, Verified 11/13/23 17:59) ANAPHYLAXIS sulindac [SULINDAC] Allergy (Severe, Verified 11/13/23 17:59) SWELLING senna Allergy (Intermediate, Verified 11/13/23 17:59) Unknown Do you need a note to return to daycare/school/sports/work: Yes HPI HPI Comments History of Present Illness Details 33-year-old female presents complaining of acute right lower quadrant pain x1 day. The patient relates she recently had a cholecystectomy but had completely recovered it does not feel this is related in any way. She also relates a mild diarrhea in the last 2 days. 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 Father No problems noted. Brother No problems noted. Brother No problems noted. Maternal Aunt Breast cancer Social History Household Members: Other Housing Other:: intermediate Are you a primary child care sitter to a significant other at home: No Alcohol intake: never Patient Tobacco Use Status: Former Tobacco user Quit Date: 03/2022 Tobacco use type: Cigarette Cigarettes Per Day: 0 Smoked in Last 30 Days: No e-Cigarette/Vaping Use: Never Used Second Hand Smoke Exposure: No Use of substances other than those prescribed or required for medical reasons: No Advance Directives: No Advance Directives Information Provided: No Patient : No service: No 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al status: disabled Gender identity: Female Cognitive needs: No Hearing needs: No Vision needs: No Female Reproductive History Menstrual Age of Menarche: 13 Review of Systems Const Reports chills, Reports fever(s) and Reports headache(s) Eyes Reports change in vision ENT Reports headache(s) GI Reports abdominal pain, Reports change in stool character and Reports nausea Neuro Reports headache(s) Physical Exam Vital Signs: Last Vital Signs Temp 97.8 F 11/13/23 16:34 Pulse 82 11/13/23 16:34 BP 122/76 11/13/23 16:34 Pulse Ox 98 11/13/23 16:34 BMI result Body Mass Index 34.0 GI Inspection: Yes normal to inspection and Yes incision Palpation (GI): Tenderness to palpation present (GI) in the RLQ, at McBurney's point, with rebound tenderness and Rovsing's sign positive and Guarding due to palpation present (GI) Auscultation: abnormal bowel sounds Results AMB Urinalysis, Automated UA Leukoctes 0 Elpidio/uL Last Edit by Shai Hernández CMA on 11/13/23 16:49 UA Nitrite Negative Last Edit by Shai Hernández CMA on 11/13/23 16:49 UA Urobilinogen 0.2 mg/dL Last Edit by Shai Hernández CMA on 11/13/23 16 :49 UA Protein 15 mg/dL Last Edit by Shai Hernández CMA on 11/13/23 16:49 UA pH 6.0 Last Edit by Shai Hernández CMA on 11/13/23 16:49 UA Blood 0 Estevan/uL Last Edit by Shai Hernández CMA on 11/13/23 16:49 UA Specific Jackson 1.015 Last Edit by Shai Hernández CMA on 11/13/23 16:49 UA Ketone Negative Last Edit by Shai Hernández CMA on 11/13/23 16:49 UA Bilirubin 0 mg/dL Last Edit by Shai Hernández CMA on 11/13/23 16:49 UA Glucose 0 mg/dL Last Edit by Shai Hernández CMA on 11/13/23 16:49 Results Reviewed Results Reviewed: Laboratory Last Values Urine pH (Auto) 6.0 11/13/23 16:48 Specific Jackson (Auto) 1.015 11/13/23 16:48 Urine Protein (Auto) 15 mg/dL 11/13/23 16:48 Glucose (UA)(Auto) 0 mg/dL 11/13/23 16:48 Urine Ketones (Auto) Negative 11/13/23 16:48 Urine Blood (Auto) 0 Estevan/uL 11/13/23 16:48 Urine Nitrite (Auto) Negative 11/13/23 16:48 Urine Bilirubin (Auto) 0 mg/dL 11/13/23 16:48 Urine Urobilinogen (Auto) 0.2 mg/dL 11/13/23 16:48 Leukocyte Esterase (Auto) 0 Elpidio/uL 11/13/23 16:48 Assessment & Plan Assessment & Plan (1) Abdominal pain: Code(s): R10.9 - Unspecified abdominal pain Qualifiers: Abdominal location: right lower quadrant Qualified Code(s): R10.31 - Right lower quadrant pain Plan: see plan Plan The patient was referred to the emergency department to rule out appendicitis. I had a discussion with her healthcare attendant who understood that she needs to be transported immediately. Orders: Orders AMB Urinalysis Automated 11/13/23 Z13.9 - Encounter for screening, unspecified Coding Level of Care Code Est Pt Level 3 (15212) Diagnoses Right lower quadrant abdominal pain R10.31 Abdominal location: right lower quadrant
== END 2023-11-13 16:53 | disposition home or self-care (01) ==
PROVIDERS: PCP Internal Medicine; Visit Provider Physician Assistant Medical
DX: R10.31 Right lower quadrant pain (principal)
CPT/HCPCS: 81003; 99213

== ENCOUNTER 2023-11-13 17:10 | Emergency (ER) | payer OTHER, SELFPAY ==
--- NOTE | ~2023-11-13 | CT_ITS ---
EXAMINATION: CT ABDOMEN AND PELVIS WITH CONTRAST CLINICAL INFORMATION: Right flank and right lower quadrant abdominal pain. COMPARISON: CT abdomen pelvis with IV contrast 04/09/2023 TECHNIQUE: Multidetector volumetric images were obtained from the superior aspect of the liver through the pubic symphysis following administration 85 mL of Omnipaque 350 intravenous contrast. Sagittal and coronal reformatted images were obtained on the technologist's workstation. Oral contrast: No This CT examination was performed using dose optimization techniques as appropriate, variously including the following: *Automated exposure control *Adjustment of mA and/or kV according to patient size (this includes techniques or standardized protocols for targeted exams where dose is matched to indication/reason for exam; i.e. extremities or head) *Use of iterative reconstruction technique DLP: 692 mGy-cm FINDINGS: LUNG BASES: The visualized lung bases are unremarkable. LIVER, GALLBLADDER, AND BILIARY TREE: The liver is normal in size, shape, and attenuation. No focal hepatic lesion or biliary ductal dilatation is present. The gallbladder has been surgically removed. PANCREAS: Unremarkable. SPLEEN: Unremarkable. ADRENAL GLANDS: Unremarkable. KIDNEYS AND URETERS: The kidneys are normal in size, shape, and attenuation. There is 1 mm radiopaque calculi lower pole left kidney. No additional radiopaque calculi seen. Is no caliectasis or hydronephrosis. No perinephric stranding. There is a 6 mm hypodensity upper and lower pole right kidney probable cyst. BLADDER: Unremarkable. GASTROINTESTINAL TRACT: There is scattered stool and gas seen throughout the colon without significant distention. The small bowel loops are normal caliber. Appendix is normal caliber. ABDOMINAL WALL: A small umbilical hernia containing fat is noted LYMPH NODES: Normal. VASCULAR: Unremarkable. PELVIC VISCERA: The uterus is anteverted and appears unremarkable. There is no free air or free fluid seen. OSSEOUS STRUCTURES: No aggressive lytic or sclerotic process seen. CT/CT abdomen pelvis w IV con IMPRESSION: 1. No acute intra-abdominal process seen. 2. Nonobstructive 1 mm radiopaque calculi lower pole left kidney. 3. Mild constipation. Normal appendix. Fleischner guidelines were followed.
[2023-11-13 17:55] VITALS: BP 192/114; PULSE 95; RESP 16; TEMP 36.4; O2SAT 98; BMI 41.7
--- NOTE | 2023-11-13 17:59 | ED.GENADULT ---
HPI - General Adult General Chief complaint: Abdominal Pain Stated complaint: right side abd pain Time Seen by Provider: 11/14/23 06:32 Source: patient, RN notes reviewed and old records reviewed Mode of arrival: ambulatory History of Present Illness HPI narrative: 33-year-old female with a past medical history of GERD, depression, anxiety, asthma, dysmenorrhea, intellectual disability, cholecystectomy, presenting to the ED complaining of right low back pain radiating to RLQ x this morning with associated nausea and vomiting. Denies fever, chills, diarrhea/constipation, dysuria/hematuria, vaginal bleeding/discharge Onset (ago): hour(s) Related Data Home Medications Medication Instructions Recorded Confirmed sumatriptan succinate 50 mg tablet 50 mg PO DAILY 07/03/20 08/18/23 polyvinyl alcohol 1.4 % eye drops 1 drp ophthalmic (eye) DAILY 07/06/21 08/18/23 (Artificial Tears (polyvinyl alcohol)) melatonin 5 mg tablet 5 mg PO BEDTIME 07/26/21 08/18/23 erythromycin 5 mg/gram (0.5 %) eye 1 appl ophthalmic (eye) DAILY 01/24/23 08/18/23 ointment trazodone 150 mg tablet 150 - 300 mg PO BEDTIME PRN 01/24/23 08/18/23 Insomnia verapamil 40 mg tablet 40 mg PO BID 01/24/23 08/18/23 Previous Rx's Medication Instructions Recorded oxcarbazepine 600 mg tablet 600 mg PO BID #60 tabs 05/30/22 (Trileptal) hydrocortisone 1 % topical cream 1 appl topical TID PRN skin 06/16/23 (Preparation H Hydrocortisone) irritation/ painful hemorrhoid #28.4 grams clotrimazole-betamethasone 1 1 appl topical BID Rash under 06/28/23 %-0.05 % topical cream breast #45 grams multivitamin 1 tab PO DAILY #90 tabs 06/28/23 albuterol sulfate 2.5 mg/3 mL 2.5 mg (3 mL) inhalation Q6H PRN 07/31/23 (0.083 %) solution for nebulization shortness of breath or wheezing #75 mL albuterol sulfate 90 mcg/actuation 2 puff inhalation Q6H PRN 07/31/23 aerosol inhaler bronchospasm #8.5 grams menthol-thymol topical liniment 1 appl topical TID PRN pain #480 mL 07/31/23 (Absorbine Jr. Original topical liniment) naproxen sodium 550 mg tablet 550 mg PO BID PRN pain #30 tabs 08/16/23 desogestrel 0.15 mg-ethinyl 1 tab PO DAILY 90 days #90 tabs 08/29/23 estradiol 0.03 mg tablet (Apri) famotidine 40 mg tablet 40 mg PO DAILY heartburn #30 tabs 09/16/23 loratadine 10 mg tablet 10 mg PO DAILY #90 tabs 09/16/23 docusate sodium 100 mg capsule 200 mg (2 x 100 mg) PO .COMPLEX 10/08/23 (Colace) #60 caps Allergies Allergy/AdvReac Type Severity Reaction Status Date / Time amoxicillin [AMOXICILLIN] Allergy Severe ANAPHYLAXIS, Verified 11/13/23 17:59 swelling Penicillins [PENICILLINS] Allergy Severe ANAPHYLAXIS Verified 11/13/23 17:59 polyethylene glycol 3350 Allergy Severe ANAPHYLAXIS Verified 11/13/23 17:59 [From MIRALAX] sulindac [SULINDAC] Allergy Severe SWELLING Verified 11/13/23 17:59 senna Allergy Intermediate Unknown Verified 11/13/23 17:59 Review of Systems Review of Systems: Constitutional: No Fever, No Chills ENT/Mouth: No Ear Pain, No Nasal Congestion, No sore throat, No Rhinorrhea, No Swallowing Difficulty Cardiovascular: No Chest Pain, No SOB Respiratory: No Cough, No Sputum, No Wheezing Gastrointestinal: + Nausea, + Vomiting, No Diarrhea, No Constipation, + Abdominal pain Genitourinary: No Dysuria, No Urinary Frequency, No Hematuria, No Urinary Incontinence/retention, No Urgency, No Flank Pain Musculoskeletal: + joint pain, No Myalgias, No Joint Swelling Skin: No Skin Lesions, No rash Neuro: No Weakness, No Numbness, No Paresthesias Yes all other systems are reviewed and are negative Constitutional: Constitutional: Reports as per [facility] [place] [facility] Past Medical History Attestation statement: The following information was validated with the patient. 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 Father No problems noted. Brother No problems noted. Brother No problems noted. Maternal Aunt Breast cancer Social History Social History Household Members: Other Housing Other:: long-term Are you a primary geriatric personal care aide to a significant other at home: No Alcohol intake: never Patient Tobacco Use Status: Former Tobacco user Quit Date: 03/2022 Tobacco use type: Cigarette Cigarettes Per Day: 0 Smoked in Last 30 Days: No e-Cigarette/Vaping Use: Never Used Second Hand Smoke Exposure: No Use of substances other than those prescribed or required for medical reasons: No Advance Directives: No Advance Directives Information Provided: No Patient : No service: No 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al status: disabled Gender identity: Female Cognitive needs: No Hearing needs: No Vision needs: No Physical Exam ED Vital Signs: Vital Signs - 24 hr 11/13/23 17:55 11/14/23 02:32 11/14/23 05:05 Temperature 97.6 F 97.7 F 97.8 F Pulse Rate 95 95 84 Respiratory Rate 16 17 17 Blood Pressure 192/114 H 168/111 H 171/95 H Pulse Oximetry 98 99 97 Oxygen Delivery Method Room Air Room Air Room Air 11/14/23 06:00 11/14/23 08:25 Temperature 98 F 98 F Pulse Rate 88 86 Respiratory Rate 14 18 Blood Pressure 177/104 H 160/98 H Pulse Oximetry 99 99 Oxygen Delivery Method Room Air Room Air BMI result Body Mass Index 41.7 Const General: cooperative, healthy appearing and no acute distress Orientation/consciousness: patient oriented x3 Limitations: no limitations HENMT Head: Yes normal to inspection and Yes atraumatic Ears: hearing grossly normal bilaterally General nose exam: Normal external nose present Face and sinus: Yes normal facial exam Eyes General: appearance normal, both eyes and all related structures EOM: EOMs intact bilaterally Neck Neck: Yes normal visual inspection and Yes no meningeal signs Resp Effort & Inspection: normal respiratory effort and no respiratory distress Auscultation: clear to auscultation bilaterally Cardio Rate: regular rate Heart sounds: S1 normal heart sound present and S2 normal heart sound present GI Inspection: Yes normal to inspection Palpation (GI): Soft to palpation, Tenderness to palpation present (GI) in the RLQ; with no rebound tenderness, no guarding and not rigid General: Yes CVA tenderness on the right Back/Spine/Pelvis Back: CVA tenderness Skin Rashes: no rashes Wounds: no wounds Neuro General: patient oriented x3, tone normal and no meningeal signs Cranial nerves: Yes CN's II-XII intact bilaterally Gait exam (Neuro): Normal gait present Extrem General: Yes normal to inspection Course Course Course Narrative: RME performed by Zhane Duarte PA-C. Patient is a 33 year old assigned female at presenting to the emergency department with abdominal pain. Detailed physical exam and review of systems are deferred to the refractory technician. Labs and swabs ordered. Patient placed back in the waiting room pending room availability and results. -0740--labs reassuring, UA negative -COVID and flu negative 0957--CT abdomen pelvis w IV con IMPRESSION: 1. No acute intra-abdominal process seen. 2. Nonobstructive 1 mm radiopaque calculi lower pole left kidney. 3. Mild constipation. Normal appendix. Fleischner guidelines were followed. > 1000--on re-evaluation patient reports symptomatic improvement. Tolerating p.o. in the ED without difficulty Results discussed with patient including worrisome signs and symptoms and strict return precautions, and when to return to the emergency department. They verbalized understanding and feel safe for discharge at this time. Medications Administered Discontinued Medications Generic Name Dose Route Start Last Admin Trade Name Freq PRN Reason Stop Dose Admin Acetaminophen 650 mg 11/14/23 07:05 11/14/23 07:40 Acetaminophen 325 Mg Tablet PO 11/14/23 07:06 650 mg ONCE ONE Administration Sodium Chloride 1,000 mls @ 999 mls/hr 11/14/23 07:15 11/14/23 09:01 Ns IV 11/14/23 08:15 Infused .Q1H1M EVER Infusion Iohexol 85 ml 11/14/23 08:37 11/14/23 08:39 Iohexol 350 Mg/Ml 100 Ml Infus..Btl IV 11/14/23 08:38 85 ml ONCE ONE Administration Medical Decision Making Medical Decision Making [facility] Narrative: 33-year-old female with a past medical history of GERD, depression, anxiety, asthma, dysmenorrhea, intellectual disability, cholecystectomy, presenting to the ED complaining of right low back pain radiating to RLQ x this morning with associated nausea and vomiting. On exam hypertensive, NAD, nontoxic appearing, R CVAT & RLQ abdominal tenderness noted, no rebound or guarding. Concern for renal stone vs pyelo vs appendicitis vs MSK pain/strain. Low suspicion for cauda equina/cord compression, epidural abscess, ovarian torsion/cyst Plan: Labs, UA, CT AP, IVF, pain control Please refer to course for remaining clinical decision making, interpretation of labs/imaging results, and discussions with consultants and/or family members. Differential Diagnosis Differential Diagnoses: The differential diagnosis associated with the presentation includes As above Admission/Observation Consideration of admission/observation: Escalation of care including admission/observation considered Lab Data [facility] Lab Attestation statement: I reviewed the patient's lab results. 11/13/23 19:32 11/13/23 19:32 Labs: Lab Results 11/13/23 Range/Units 19:32 WBC 7.6 (4.8-10.8) X10*3/uL RBC 4.58 (4.20-5.50) X10*6/uL Hgb 12.8 (12.0-16.0) g/dl Hct 36.6 L (37.0-47.0) % MCV 79.9 L (80.0-98.0) fL MCH 27.9 (27.0-33.0) pg MCHC 35.0 (31.0-35.0) g/dl RDW 13.1 (11.0-16.0) % Plt Count 163 D (160-400) X10*3/uL MPV 11.2 (9.4-12.3) fL Immature Gran % (Auto) 0.3 (0.0-0.4) % Neut % (Auto) 70.4 (45-73) % Lymph % (Auto) 21.4 (20-40) % [place] % (Auto) 6.4 (2-11) % Eos % (Auto) 0.8 (0-4) % Baso % (Auto) 0.7 (0-2) % Lymph # (Auto) 1.6 (1.2-4.9) X10*3/uL [place] # (Auto) 0.5 (0.1-1.2) X10*3/uL Eos # (Auto) 0.1 (0.0-0.4) X10*3/uL Baso # (Auto) 0.1 (0.0-0.2) X10*3/uL Abs Immat Gran (auto) 0.02 (0.00-0.03) X10*3/uL Absolute Neuts (auto) 5.4 (2.0-8.3) x10*3/uL Absolute Nucleated RBC 0.000 (0.0-0.012) X10*3/uL Nucleated RBC % (auto) 0.0 (0.0-0.2) /100WBC Sodium 141 (135-145) mmol/L Potassium 3.6 (3.3-5.1) mmol/L Chloride 106 (96-108) mmol/L Carbon Dioxide 23 (22-29) mmol/L Anion Gap 16 (12-20) BUN 10 (9-16) mg/dL Creatinine 0.84 (0.5-1.4) mg/dL Estim Creat Clear Calc 113.6 Estimated GFR > 60 Random Glucose 93 (60-115) mg/dL Calcium 9.4 (8.4-10.2) mg/dL Magnesium 2.2 (1.6-2.6) mg/dL Total Bilirubin 0.2 (0.0-1.0) mg/dL AST 14 (5-31) U/L ALT 13 (0-31) U/L Alkaline Phosphatase 65 (39-117) U/L Total Protein 7.7 (6.5-8.0) g/dL Albumin 4.4 (3.5-5.0) g/dL Lipase 34 (8-78) U/L Beta HCG, Quant < 2 mIU/mL Urine Color Yellow Urine Appearance Clear Urine pH 6.0 (5.0-9.0) Ur Specific [place] 1.010 (1.005-1.025) Urine Protein 30 (1+) H (Neg-Trace) mg/dL Urine Glucose (UA) Negative (Negative) mg/dL Urine Ketones Negative (Negative) mg/dL Urine Blood Negative (Negative) Urine Nitrite Negative (Negative) Ur Leukocyte Esterase Negative (Negative) Urine RBC 0-2 (0-2) /HPF Urine WBC 0-5 (0-5) /HPF Ur Squamous Epith Cells 0-2 (0-2) /HPF Urine Bacteria None Seen (None Seen) Hyaline Casts 0-2 (0-2) /LPF COVID-19 (ROSIO) Negative (Negative) COVID-19 Clin Com See Note Influenza Type A (CHING) Negative (Negative) Influenza Type B (CHING) Negative (Negative) Influenza A & B Note See Note Independent Interpretation I performed an independent interpretation of an: CT Scan Radiology Impression Discussion of test interpretation with radiology: I have reviewed the radiologist's reading. External Record Review External record reviewed: Inpatient record, Office record, Outpatient record, Prior outpatient labs, Prior outpatient radiology, Primary care record and Outside ED record Tests considered The following testing was considered but not selected: As above Prescription Management I considered prescription management with: Pain Medication Chronic Conditions Patient?s care impacted by: Other Discharge Plan Discharge Clinical Impression: Acute right-sided low back pain, Abdominal pain, RLQ Patient Disposition: Home, Self-Care Instructions: Acute Low Back Pain (ED), Abdominal Pain (ED) Additional Instructions: Your blood work and CT scan were reassuring Practice a bland diet If symptoms persist or worsen, pain becomes constant/unbearable, your unable to eat or drink or have fever return to the ED Prescriptions: No Action oxcarbazepine [Trileptal] 600 mg tablet 600 mg PO BID Qty: 60 3RF clotrimazole-betamethasone 1-0.05 % cream 1 appl topical BID Qty: 45 0RF multivitamin Tablet 1 tab PO DAILY Qty: 90 3RF naproxen sodium 550 mg tablet 550 mg PO BID PRN (Reason: pain) Qty: 30 1RF Rx Instructions: take one tablet BID for the first few days of cramping with menses, then stop. Repeat as needed each cycle loratadine 10 mg tablet 10 mg PO DAILY Qty: 90 1RF famotidine 40 mg tablet 40 mg PO DAILY Qty: 30 5RF Rx Instructions: take 30 mins ac docusate sodium [Colace] 100 mg capsule 200 mg PO .COMPLEX Qty: 60 2RF Rx Instructions: 200 mg orally daily in PM; sumatriptan succinate 50 mg tablet 50 mg PO DAILY polyvinyl alcohol [Artificial Tears (polyvin alc)] 1.4 % drops 1 drp ophthalmic (eye) DAILY hydrocortisone [Preparation H Hydrocortisone] 1 % cream 1 appl topical TID PRN (Reason: skin irritation/ painful hemorrhoid) Qty: 28.4 0RF albuterol sulfate 90 mcg/actuation HFA aerosol inhaler 2 puff inhalation Q6H PRN (Reason: bronchospasm) Qty: 8.5 8RF albuterol sulfate 2.5 mg /3 mL (0.083 %) solution for nebulization 2.5 mg inhalation Q6H PRN (Reason: shortness of breath or wheezing) Qty: 75 5RF Absorbine Jr. Original Liniment 1 appl topical TID PRN (Reason: pain) Qty: 480 2RF melatonin 5 mg tablet 5 mg PO BEDTIME trazodone 150 mg tablet 150 - 300 mg PO BEDTIME PRN (Reason: Insomnia) verapamil 40 mg tablet 40 mg PO BID erythromycin 5 mg/gram (0.5 %) ointment 1 appl ophthalmic (eye) DAILY desogestrel-ethinyl estradiol [Apri] 0.15-0.03 mg tablet 1 tab PO DAILY 90 Days Qty: 90 0RF Referrals: [facility] [place] [facility] [Provider Group] - 1 week Mindy Hutchinson MD [Primary Care Provider] - 3 days
[2023-11-13 19:38] LABS: MANUAL DIFF FLAG NO
[2023-11-13 19:42] LABS: Basophils Absolute Auto 0.1 X10*3/uL (0.0-0.2); Basophils Percent Auto 0.7 % (0-2); Eosinophils Absolute Auto 0.1 X10*3/uL (0.0-0.4); Eosinophils Percent Auto 0.8 % (0-4); Hematocrit 36.6 % (37.0-47.0); Hemoglobin 12.8 g/dl (12.0-16.0); Imm Gran Abs Auto 0.02 X10*3/uL (0.00-0.03); Imm Gran Pct Auto 0.3 % (0.0-0.4); Lymphocytes Absolute Auto 1.6 X10*3/uL (1.2-4.9); Lymphocytes Percent Auto 21.4 % (20-40); Mean Corpuscular Hemoglobin 27.9 pg (27.0-33.0); Mean Corpuscular Volume 79.9 fL (80.0-98.0); Mean Platelet Volume 11.2 fL (9.4-12.3); Monocytes Absolute Auto 0.5 X10*3/uL (0.1-1.2); Monocytes Percent Auto 6.4 % (2-11); Neutrophils Absolute Auto 5.4 x10*3/uL (2.0-8.3); Neutrophils Percent Auto 70.4 % (45-73); Platelet Count 163 X10*3/uL (160-400); Red Blood Count 4.58 X10*6/uL (4.20-5.50); Red Cell Distribution Width 13.1 % (11.0-16.0); White Blood Count 7.6 X10*3/uL (4.8-10.8)
[2023-11-13 19:46] LABS: Appearance Urine Clear; Color Urine Yellow; Glucose Urine UA Negative (Negative); Leukocyte Esterase Urine Negative (Negative); Nitrite Urine Negative (Negative); UMIC TRIGGER UACC YES; Urine Blood Negative (Negative); Urine Ketones Negative (Negative); Urine Protein 30 (1+) mg/dL (Neg-Trace)
[2023-11-13 19:48] LABS: Bacteria Urine None Seen (None Seen); Hyaline Casts Urine 0-2 /LPF (0-2); RBC Urine 0-2 /HPF (0-2); Squamous Epithelial Cell Urine 0-2 /HPF (0-2); WBC Urine 0-5 /HPF (0-5)
[2023-11-13 19:59] LABS: COVID-19 Test Negative (Negative); IDNOW Serial# 152EDE1D; IDNOW Serial# 9DB6401D; Influenza A Negative (Negative); Influenza B2 Negative (Negative)
[2023-11-13 20:00] LABS: Alanine Aminotransferase 13 U/L (0-31); Albumin Level 4.4 g/dL (3.5-5.0); Alkaline Phosphatase 65 U/L (39-117); Anion Gap 16 (12-20); Aspartate Amino Transferase 14 U/L (5-31); Bilirubin Total 0.2 mg/dL (0.0-1.0); Blood Urea Nitrogen 10 mg/dL (9-16); Calcium 9.4 mg/dL (8.4-10.2); Carbon Dioxide 23 mmol/L (22-29); Chloride 106 mmol/L (96-108); Creatinine Clr Calc Pharmacy 113.6; Estimated Glomerular Filt Rate > 60; Glucose Random 93 mg/dL (60-115); Magnesium 2.2 mg/dL (1.6-2.6); Potassium 3.6 mmol/L (3.3-5.1); Sodium 141 mmol/L (135-145); Total Protein 7.7 g/dL (6.5-8.0)
[2023-11-13 20:01] LABS: HCG Quantitative < 2 mIU/mL
[2023-11-14 02:32] VITALS: BP 168/111; PULSE 95; RESP 17; TEMP 36.5; O2SAT 99
--- NOTE | 2023-11-14 03:44 | PC.NURSE ---
Patient and family member very upset about long wait, have not seen a provider since triage. Explained that there is currently 1 provider an emergencies can push back when the patient is seen. Made aware pt's labs, urine and swabs were negative.
[2023-11-14 05:05] VITALS: BP 171/95; PULSE 84; RESP 17; TEMP 36.6; O2SAT 97
[2023-11-14 06:00] VITALS: BP 177/104; PULSE 88; RESP 14; TEMP 36.6; O2SAT 99
--- NOTE | 2023-11-14 06:39 | PC.NURSE ---
Report given to Meme YOUSIF.
[2023-11-14] MEDS: 0.9 % Sodium Chloride 1,000 ML 999 ML IV (07:31)
[2023-11-14] MEDS: Acetaminophen 325 MG TABLET 650 MG PO (07:40)
[2023-11-14 08:07] LABS: Lipase 34 U/L (8-78)
[2023-11-14 08:25] VITALS: BP 160/98; PULSE 86; RESP 18; TEMP 36.6; O2SAT 99
[2023-11-14] MEDS: iohexoL 350 MG/ML 100 ML INFUS..BTL 85 ML IV (08:39)
== END 2023-11-14 11:18 | disposition home or self-care (01) ==
PROVIDERS: Physician Assistant; Physician Assistant Medical; Emergency Provider Emergency Medicine Emergency Medical Services; PCP Internal Medicine
DX: M54.50 Low back pain, unspecified (principal); R10.31 Right lower quadrant pain; R11.2 Nausea with vomiting, unspecified; Z79.899 Other long term (current) drug therapy; Z11.52 Encounter for screening for COVID-19
CPT/HCPCS: 74177; 80053; 81001; 83690; 83735; 84702; 85025; 87502; 87635; 96360; 99285; Q9967

== ENCOUNTER 2024-08-08 08:04 | Outpatient (AMB) | payer OTHER, SELFPAY ==
--- NOTE | 2024-08-08 08:15 | MHC.OFFVIS ---
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: Front End Wheel Loader Operator Present (Elizabeth) Accompanied by: Other Relationship Allergies amoxicillin [AMOXICILLIN] Allergy (Severe, Verified 08/08/24 08:22) ANAPHYLAXIS, swelling Penicillins [PENICILLINS] Allergy (Severe, Verified 08/08/24 08:22) ANAPHYLAXIS polyethylene glycol 3350 [From MIRALAX] Allergy (Severe, Verified 08/08/24 08:22) ANAPHYLAXIS sulindac [SULINDAC] Allergy (Severe, Verified 08/08/24 08:22) SWELLING senna Allergy (Intermediate, Verified 08/08/24 08:22) Unknown Is last menstrual period known: Yes Last menstrual period: 08/01/24 HPI Comments Details: She is a premenopausal woman presenting for annual examination. She is present with her shared living provider whom she lives with, Ria. Doing well with concerns: Admits to having right-sided breast pain for a few months, denies any injuries to the breast no nipple discharge. History of right breast lump removed or biopsy at [facility] many years ago in the same area. Stopped control due to hypertension. She is due to see her primary care soon to address her concerns. She reports she had a small rash from Depo-Provera in the past. She tries to eat healthy, admits to eating additional junk food most days, and stays active with limited exercise. Regular monthly menses. Currently is not sexually active-talking to someone is interested in restarting control. Her program mandates control if she dates. She denies vaginal itching and irritation. STI screening offered; she accepts. Denies family history of ovarian or colon cancer. Family history of breast cancer-maternal aunt. Last pap smear 2021, negative. 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 Brother No problems noted. Brother No problems noted. 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 Cognitive needs: No Hearing needs: No Vision needs: No Female Reproductive History Menstrual Age of Menarche: 13 Duration of menses: 3-5 days Date of last menstrual period: 08/01/24 control method: none Total pregnancies: 1 Date of last pap smear: 07/28/22 (Negative pap spear, negative hpv) Date of Mammogram: 09/05/23 (bi-rad 1) Review of Systems Const All systems reviewed & are unremarkable except as noted in HPI and below Reports as per HPI Eyes Reports no additional complaints ENT Reports no additional complaints Card Reports no additional complaints Resp Reports no additional complaints GI Reports as per HPI and Reports no additional complaints Reports as per HPI Musc Reports no additional complaints Skin/Breast Reports as per HPI Neuro Reports no additional complaints Psych Reports no additional complaints Endo Reports no additional complaints Jam/Lymph Reports no additional complaints Aller/Immun Reports no additional complaints Physical Exam Vital Signs: Last Vital Signs BP 140/90 H 08/08/24 08:27 BMI result Body Mass Index 41.4 Const General: cooperative, healthy appearing, no acute distress, well developed and alert Orientation/consciousness: patient oriented x3 HEENT Head: Yes normal to inspection Eyes General: appearance normal, both eyes and all related structures Neck Neck: Yes normal visual inspection Thyroid: Thyroid normal Chest Other: Generalized pain to the right breast in the area she identified with the lower half of the breast from 3-9:00 o'clock Chest palpation & inspection: normal inspection of the chest and other (no puckering, dimpling, peau de orange, retraction, discharge, masses) Breast/axilla inspection: normal inspection of the breasts Breast/axilla palpation: normal palpation of the breasts Resp Effort & Inspection: normal respiratory effort GI Inspection: Yes normal to inspection Palpation (GI): Soft to palpation Rectal Exam - Female: deferred General: Yes bladder normal to palpation External Female Exam: normal external appearance and normal appearance of the urethra Speculum Exam - Vagina: normal appearance of the vagina, normal palpation and normal vaginal discharge Speculum Exam - Cervix: normal appearance of the cervix and normal palpation Bimanual exam- vagina & uterus: normal bimanual exam, normal palpation, uterine size normal, bladder normal to palpation, normal palpation and non-tender Bimanual Exam- Adnexa, other: no masses Skin General skin exam: no rashes or lesions noted Rashes: no rashes Neuro General: patient oriented x3 Cognition (Neuro): normal cognition Extrem General: Yes normal to inspection Psych Attitude: cooperative Thought process: Normal thought process present Assessment & Plan Assessment & Plan (1) Well woman exam with routine gynecological exam: Code(s): Z01.419 - Encounter for gynecological examination (general) (routine) without abnormal findings Category: Medical (2) Pain of right breast: Code(s): N64.4 - Mastodynia (3) Breast pain: Code(s): N64.4 - Mastodynia Category: Medical Plan Discussed: Current recommendations for pap smears per ASCCP guidelines. Breast awareness and periodic breast exams. Plan follow up breast ultrasound and mammogram. Sign a release of records for breast biopsy results. Maintain a healthy lifestyle including a well balanced diet and routine exercise. Advised low-salt diet, limit sugary items, and excessive junk food. Use condoms for STI and prevention. Counseled regarding control options-progesterone or non-hormonal methods. Booklet given to review and discuss had her follow up control consult. Patient verbalizes understanding and agrees to the plan of care. She was given opportunity to ask questions and all questions were answered to the best of my ability. 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 This note is constructed using voice recognition software. While every effort has been made to ensure accuracy, pilates coordinator errors may have been included. Orders: Orders HPV High risk Today Z01.419 - Encounter for gynecological examination (general) (routine) without abnormal findings US breast RT complete Today N64.4 - Mastodynia Bacterial Vaginosis Panel Today Z20.2 - Contact with and (suspected) exposure to infections with a predominantly sexual mode of transmission CT NG by PCR Today Z20.2 - Contact with and (suspected) exposure to infections with a predominantly sexual mode of transmission Pap Smear Today Z01.419 - Encounter for gynecological examination (general) (routine) without abnormal findings MM tomosynthesis diagnostic BI Today N64.4 - Mastodynia Coding Level of Care Code Est Pt Prev Care [id number]) Diagnoses Well woman exam with routine gynecological exam Z01.419 Pain of right breast N64.4 Breast pain N64.4
[2024-08-08 08:27] VITALS: BP 140/90; BMI 41.4
== END 2024-08-08 09:12 | disposition home or self-care (01) ==
LOC: HO.HWS 08:04
PROVIDERS: PCP Internal Medicine; Visit Provider Advanced Practice Midwife
DX: Z01.419 Encounter for gynecological examination (general) (routine) without abnormal findings (principal); N64.4 Mastodynia
CPT/HCPCS: 99395

== ENCOUNTER 2024-08-08 08:04 | Outpatient (REF) | payer OTHER, SELFPAY ==
[2024-08-08 13:32] LABS: HPV 16,18/45 See PAP report
== END 2024-08-08 08:05 | disposition home or self-care (01) ==
LOC: HO.LNP 08:04
PROVIDERS: PCP Internal Medicine; Visit Provider Advanced Practice Midwife
DX: Z01.419 Encounter for gynecological examination (general) (routine) without abnormal findings (principal); Z20.2 Contact with and (suspected) exposure to infections with a predominantly sexual mode of transmission; N64.4 Mastodynia
CPT/HCPCS: 87624; 88175; 99395

== ENCOUNTER 2024-08-08 08:56 | Outpatient (REF) | payer OTHER, SELFPAY ==
[2024-08-08 14:57] LABS: Bacterial Vaginosis PCR NEGATIVE (Negative); Candida Group PCR NOT DETECTED (Not Detect); Candida glab krusei PCR NOT DETECTED (Not Detect); Trichomonas vaginalis PCR NOT DETECTED (Not Detect)
[2024-08-08 17:18] LABS: CT PCR NOT DETECTED (Not Detect.); NG PCR NOT DETECTED (Not Detect.)
== END 2024-08-08 08:57 | disposition home or self-care (01) ==
LOC: HO.LAB 08:56
PROVIDERS: Visit Provider Advanced Practice Midwife
DX: Z20.2 Contact with and (suspected) exposure to infections with a predominantly sexual mode of transmission (principal); Z01.419 Encounter for gynecological examination (general) (routine) without abnormal findings; Z86.19 Personal history of other infectious and parasitic diseases
CPT/HCPCS: 0352U; 87491; 87591

== ENCOUNTER 2024-08-14 12:54 | Outpatient (AMB) | payer OTHER, SELFPAY ==
[2024-08-14 12:56] VITALS: BP 130/90; PULSE 98; O2SAT 100; BMI 42.2
--- NOTE | 2024-08-14 12:56 | A.OFFPC_ITS ---
Vital Signs 08/14/24 12:56 Height 5 ft 3 in Weight 238 lb BMI 42.2 BP 130/90 H Blood Pressure Location Lt brachial Position Sitting Pulse 98 Pulse Source Pulse Oximeter Pulse Oximetry (%) 100 Oxygen Delivery Method Room Air Intake Visit Reasons: Annual Intake Note: Pt is here today for her PE:Last papsmear 08/08/24 Allergies amoxicillin [AMOXICILLIN] Allergy (Severe, Verified 08/14/24 13:10) ANAPHYLAXIS, swelling Penicillins [PENICILLINS] Allergy (Severe, Verified 08/14/24 13:10) ANAPHYLAXIS polyethylene glycol 3350 [From MIRALAX] Allergy (Severe, Verified 08/14/24 13:10) ANAPHYLAXIS sulindac [SULINDAC] Allergy (Severe, Verified 08/14/24 13:10) SWELLING senna Allergy (Intermediate, Verified 08/14/24 13:10) Unknown Medication List - Last Reconciled 08/14/24 by Mindy Hutchinson MD albuterol sulfate 90 mcg/actuation 2 puffs inhalation Q6H PRN albuterol sulfate 2.5 mg (3 mL) inhalation Q6H PRN clotrimazole-betamethasone 1-0.05 % 1 appl topical BID docusate sodium (Colace) 200 mg orally daily in PM; erythromycin 1 appl ophthalmic (eye) DAILY famotidine 40 mg PO DAILY hydrocortisone 1% (Preparation H Hydrocortisone) 1 appl topical TID PRN melatonin 5 mg PO BEDTIME menthol-thymol (Absorbine Jr. Original topical liniment) 1 appl topical TID PRN multivitamin 1 tab PO DAILY naproxen sodium 550 mg PO BID PRN oxcarbazepine (Trileptal) 600 mg PO BID polyvinyl alcohol 1.4% (Artificial Tears (polyvinyl alcohol)) 1 drp ophthalmic (eye) DAILY sumatriptan succinate 50 mg PO DAILY trazodone 150 - 300 mg PO BEDTIME PRN verapamil ER 120 mg PO DAILY Tobacco use date assessed: 08/14/24 Dental Screening Dental Screen Date: 08/14/24 Did you have a dental visit in the last 12 months?: Yes Did you have a dental problem in the last 6 months where you did not have access to dental care?: No Was dental information given to patient?: Patient has dentist HPI Annual HPI Details 33-year-old lady with mild intermittent asthma, mild intellectual disability, migraine, GERD , obesity, history of porcelain gallbladder, and has a prostatic left eye, here today for physical exam. Currently being seen at [facility] for her routine Pap and pelvic exam, last Pap smear was done earlier this month with negative findings. She has been feeling well, asthma and migraine episodes controlled with current treatment. 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 Brother No problems noted. Brother No problems noted. 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 1. Little interest or pleasure in doing things: not at all 2. Feeling down, depressed, or hopeless: several days 3. Trouble falling or staying asleep, or sleeping too much: several days 4. Feeling tired or having little energy: not at all 5. Poor appetite or overeating: nearly every day 6. Feeling bad about yourself - or that you are a failure or have let yourself or your family down: not at all 7. Trouble concentrating on things, such as reading the newspaper or watching television: not at all 8. Moving or speaking so slowly that other people could have noticed. Or the opposite - being so fidgety or restless that you have been moving around a lot more than usual: not at all 9. Thoughts that you would be better off or of hurting yourself in some way: not at all Total score: 5 Depression Screening Interpretation: Positive (Followed by Britton Jones) Depression Screening Follow-up: Existing condition, In treatment and Community Mental Health Worker F/U Depression Screening Done: Yes Source: Developed by Drs. Jett Oneal, Felisa River, Raudel Correa and colleagues, with an educational geraldine from [employer]. Thrive Questionnaire Date Thrive assessed: 08/14/24 I am a: Patient What is your living situation today?: I have a steady place to live Within the past 12 months, did the food you bought not last and you didn't have the money to get more?: Never true Within the past 12 months, did you worry whether your food would run out before you got money to buy more?: Never true Do you have trouble paying for medicines?: No Do you have trouble getting transportation to medical appointments?: No Do you have trouble paying your heating and electricity bill?: No Do you have trouble taking care of your child, family member or friend?: No Do you have trouble with day-to-day activities such as bathing, preparing meals, shopping, managing finances, etc.?: No Are you currently unemployed and looking for a job?: No Are you interested in more education?: No THRIVE Score: 0 LEYDA-7 AMB Questionnaire LEYDA-7 Date LEYDA - 7 assessed: 12/08/22 Feeling nervous, anxious, or on edge: 0 = Not at all Not being able to stop or control worryin = Not at all Worrying too much about different things: 1 = Several days Trouble relaxin = More than half the days Being so restless that it is hard to sit still: 3 = Nearly every day Becoming easily annoyed or irritable: 1 = Several days Feeling afraid as if something awful might happen: 0 = Not at all Total LEYDA-7 score (0-4 normal; 5-9 mild; 10-14 moderate; 15-21 severe): 7 Source: Developed by Drs. Jett Oneal, Felisa River, Raudel Correa and colleagues, with an educational geraldine from [employer]. LEYDA-7 Assessment Billing LEYDA-7 Assessment Tool: LEYDA-7 Assessment 91933 Review of Systems Const Reports no additional complaints Eyes Details: [facility] Reports no additional complaints and Reports other (Artificial left eye) ENT Details: Dental prophylaxis every 6 months Reports no additional complaints Card Reports no additional complaints Resp Reports no additional complaints GI Details: Obese, soft, with normal bowel sounds, nontender to palpation Reports as per HPI and Reports no additional complaints Details: Goes to [facility] for her routine Pap and pelvic exam Reports as per HPI Musc Reports no additional complaints Skin/Breast Reports as per HPI Neuro Reports no additional complaints Psych Reports no additional complaints Endo Reports no additional complaints Jam/Lymph Reports no additional complaints Aller/Immun Reports no additional complaints Physical exam (Primary Care) Vital Signs: Last Vital Signs Pulse 98 08/14/24 12:56 BP 130/90 H 08/14/24 12:56 Pulse Ox 100 08/14/24 12:56 Oxygen Delivery Method Room Air 08/14/24 12:56 BMI result Body Mass Index 42.2 Tobacco/Smoking Status: Tobacco use Status Tobacco use date assessed 08/14/24 08/14/24 12:59 Patient Tobacco Use Status Former Tobacco user 08/14/24 12:59 Tobacco use type Cigarette 08/14/24 12:59 e-Cigarette/Vaping Use Never Used 08/14/24 12:59 PHQ-9: PHQ-9 Score PHQ-9: Total score 5 08/14/24 13:46 Depression Screening Interpretation: Positive (Followed by Britton Jones) Depression Screening Follow-up: Existing condition, In treatment and Community Mental Health Worker F/U Thrive Assessment: Date of Thrive Assessment Date Thrive assessed 08/14/24 08/14/24 13:46 Const Other: But oriented x3, no acute cardiorespiratory distress ambulatory normal gait, second baller present Nutritional Appearance: obese Orientation/consciousness: patient oriented x3 HENMT Head: Yes normocephalic Ears: external ears normal, TM's normal bilaterally and EAC's normal General nose exam: Normal external nose present Face and sinus: Yes face symmetric Mouth: Normal oral and palatal mucosa present, oropharynx normal and moist mucous membranes Eyes Other: Left eye prosthesis Periorbital: periorbital findings normal Conjunctivae: conjunctivae normal Sclerae: sclerae normal Neck Neck: Yes full ROM, Yes no lymphadenopathy and Yes supple Chest Chest palpation & inspection: normal inspection of the chest Breast/axilla palpation: normal palpation of the breasts Resp Auscultation: clear to auscultation bilaterally Cardio Other: S1-S2 present regular rate and rhythm, soft systolic murmur heard at the left sternal border GI Inspection: Yes obesity Palpation (GI): Soft to palpation, no guarding and no masses General: Yes no CVA tenderness and Yes deferred (Goes to OBGYN at [facility]) Back/Spine/Pelvis Back: no CVA tenderness and No back tenderness Skin General skin exam: no rashes or lesions noted and dry skin Neuro General: patient oriented x3, gait normal, tone normal, moves all extremities and no focal motor deficits Extrem General: Yes full ROM, Yes no joint enlargement, Yes no clubbing, cyanosis or edema and Yes normal gait Psych Appearance: grossly normal and well kempt Mental Status: mental status grossly normal Speech and movement: Normal speech and movement present Affect: normal affect Attitude: cooperative Office Procedures Flu Questionnaire Does the patient have a severe egg allergy?: No Does the patient have severe life threatening allergies?: No Does the patient have a fever or illness today?: No Has the patient ever had Guillain-Robertsdale Syndrome?: No Has the patient ever had any past reaction to a flu shot?: No Immunizations Fluarix Triv 6521-4793 (PF) 45 mcg (15 mcg x 3)/0.5 mL IM syringe Performing Provider: Mindy Hutchinson MD Performing Location: [facility] Administered by: Dior Shah CMA on 08/14/24 13:46 Dose Route Admin Location Dispensed Lot Number Expiration Date [facility] Rheumatology Nurse 0.5 mL IM Left Deltoid 0.5 mL [id number] 03/31/25 11828-936-02 [facility] VIS Given Date VIS Provided VIS Publication Date 08/14/24 Single Vaccine 21 Eligibility Eligibility Date Funding Source Not [facility] Eligible 08/14/24 Private Results Reviewed Results Reviewed: Name: Cassidy Cartwright Age/Sex: 33/F : 1990 Unit#: [id number] Attend Dr: Frida Perez MD Re11/13/23 Status: DEP ER Location: [facility] Disch: SPEC : [id number] BEVERLY: 11/13/23 STATUS: COMP REQ : [id number] RECD: 11/13/[address]: Zhane Duarte COMP: 11/13/23 ENTERED: 11/13/[address]: Mindy Hutchinson MD ORDERED: CMP, MG, Lip, HCG Quant Test Result Flag Reference Sodium 141 135-145 mmol/L Potassium 3.6 3.3-5.1 mmol/L CL 106 96-108 mmol/L CO2 23 22-29 mmol/L Gap 16 12-20 BUN 10 9-16 mg/dL Creat 0.84 0.5-1.4 mg/dL Estimated CrCl 113.6 Provided height and weight: 160.02 cm, 106.9 kg. eGFR (calculated from the MDRD study equation) and eCrCl (calculated from the Cockcroft-Gault equation) are based on different parameters and may not yield comparable results. If eCrCl result is absurd, please check patient's height/weight. EGFR > 60 NOTE: For -[place] individuals, multiply the result by 1.210. Chronic Kidney Disease: Estimated GFR < 60 mL/min/1.73m2 Severe Kidney Disease: Estimated GFR < 15 mL/min/1.73m2 Glucose, Random 93 60-115 mg/dL CA 9.4 8.4-10.2 mg/dL Magnesium 2.2 1.6-2.6 mg/dL Total Bili 0.2 0.0-1.0 mg/dL AST (GOT) 14 5-31 U/L ALT (GPT) 13 0-31 U/L Protein, Total 7.7 6.5-8.0 g/dL Alb 4.4 3.5-5.0 g/dL Alk Phos 65 39-117 U/L Lipase 34 8-78 U/L HCG Quant < 2 mIU/mL Weeks post LMP Approximate hCG (Last Menstrual Period) Range (mIU/ml) 3 - 4 weeks 9 - 130 4 - 5 weeks 75 - 2,600 5 - 6 weeks 850 - 20,800 6 - 7 weeks 4000 - 100,200 7 - 12 weeks 11,500 - 289,000 12 - 16 weeks 18,300 - 137,000 16 - 29 weeks (2nd trimester) 1,400 - 53,000 29 - 41 weeks (3rd trimester) 940 - 60,000 The [place] B-hCG assay is used for the early detection of ; it cannot be used to diagnose any condition unrelated to . If a B-hCG level is not supported by the clinical evidence, results should be confirmed by an alternative method (qualitative urine hCG, for example). Name: Cassidy Cartwright Age/Sex: 33/F : 1990 Unit#: [id number] Attend Dr: Frida Perez MD Re11/13/23 Status: DEP ER Location: [facility] isch: SPEC : [id number] BEVERLY: 11/13/23 STATUS: COMP REQ : [id number] RECD: 11/13/[address] [facility] DR: Zhane Duarte COMP: 11/13/23 ENTERED: 11/13/[address] [facility] [address]: Mindy Hutchinson MD ORDERED: CBC Auto Diff Test Result Flag Reference WBC 7.6 4.8-10.8 X10*3/uL RBC 4.58 4.20-5.50 X10*6/uL HGB 12.8 12.0-16.0 g/dl HCT 36.6 L 37.0-47.0 % MCV 79.9 L 80.0-98.0 fL MCH 27.9 27.0-33.0 pg MCHC 35.0 31.0-35.0 g/dl RDW 13.1 11.0-16.0 % PLT 163 # 160-400 X10*3/uL MPV 11.2 9.4-12.3 fL Neut Pct Auto 70.4 45-73 % ImGran Pct Auto 0.3 0.0-0.4 % Lymp Pct Auto 21.4 20-40 % Collier Pct Auto 6.4 2-11 % Eos Pct Auto 0.8 0-4 % Baso Pct Auto 0.7 0-2 % NRBC Pct Auto 0.0 0.0-0.2 /100WBC ANC Neut Abs # 5.4 2.0-8.3 x10*3/uL ImGran Abs Auto 0.02 0.00-0.03 X10*3/uL Lymph Abs Auto 1.6 1.2-4.9 X10*3/uL Collier Abs Auto 0.5 0.1-1.2 X10*3/uL Eos Abs Auto 0.1 0.0-0.4 X10*3/uL Baso Abs Auto 0.1 0.0-0.2 X10*3/uL NRBC Abs Auto 0.000 0.0-0.012 X10*3/uL Coding Level of Care Code Est Pt Prev Care [id number]) Diagnoses Annual visit for general adult medical examination with abnormal findings Z00.01 Elevated blood pressure reading R03.0 Obesity E66.9 Depression with anxiety F41.8 Migraine without aura and without status migrainosus, not intractable G43.009 Intractability: not intractable Migraine type: migraine (< 15 days per month) without aura Status migrainosus presence: without status migrainosus Mild intermittent asthma in adult without complication J45.20 Vitamin D deficiency E55.9 GERD (gastroesophageal reflux disease) K21.9 Heart murmur, systolic R01.1 Additional Codes LEYDA-7 Assessment Billing - LEYDA-7 Assessment Tool: LEYDA-7 Assessment 42461 ([id number]) Assessment & Plan Assessment & Plan (1) Annual visit for general adult medical examination with abnormal findings: Code(s): Z00.01 - Encounter for general adult medical examination with abnormal findings Category: Medical Plan: Fasting labs ordered.. Recommended dental visit every 6 months and regular eye exams, at least every 2 years. Take adequate calcium in diet and vitamin-D 3 at 2000 IU per cap once a day, in addition to weight-bearing exercises to help maintain good muscle tone and weight control. Instructed to do self-breast exam, and recommended to get yearly mammogram, starting at age 40. Flu vaccine given today. Reminded to get COVID booster. (2) Elevated blood pressure reading: Code(s): R03.0 - Elevated blood-pressure reading, without diagnosis of hypertension Category: Medical Plan: Nephrology consult ordered for possible 24 hour blood pressure monitoring. Patient already on verapamil ER 120 mg daily (3) Obesity: Comment: see above Code(s): E66.9 - Obesity, unspecified Category: Medical Plan: Discussed need to increase activity and wt reduction. Recommended to follow a Mediterranean diet, limit foods high in fat, sugar, and calories, eat slowly, pay attention to portion sizes, plan your meals ahead of time, start regular physical activity 150 minutes of moderate intensity exercise or 90 minutes/week of vigorous exercise (4) Depression with anxiety: Comment: Followed at [facility] Code(s): F41.8 - Other specified anxiety disorders Category: Medical Plan: Followed by Britton Jones (5) Migraine: Comment: Seen by Dr. Connell Code(s): G43.909 - Migraine, unspecified, not intractable, without status migrainosus Category: Medical Qualifiers: Intractability: not intractable Migraine type: migraine (< 15 days per month) without aura Status migrainosus presence: without status migrainosus Qualified Code(s): G43.009 - Migraine without aura, not intractable, without status migrainosus Plan: Followed by Neurology (6) Mild intermittent asthma in adult without complication: Code(s): J45.20 - Mild intermittent asthma, uncomplicated Category: Medical Plan: Has albuterol inhaler to take as needed for episodes of bronchospasm and wheezing takes infrequently. Flu vaccine given today, reminded to get COVID booster, up-to-date with her pneumonia vaccine (7) Vitamin D deficiency: Code(s): E55.9 - Vitamin D deficiency, unspecified Category: Medical Plan: Will check vitamin-D low (8) GERD (gastroesophageal reflux disease): Code(s): K21.9 - Gastro-esophageal reflux disease without esophagitis Category: Medical Plan: Continued on famotidine 40 mg daily (9) Heart murmur, systolic: Code(s): R01.1 - Cardiac murmur, unspecified Category: Medical Plan: Ordered complete transthoracic 2D echocardiogram Orders: Orders Aspartate Amino Transferase 08/17/24 E55.9 - Vitamin D deficiency, unspecified, E66.9 - Obesity, unspecified, F41.8 - Other specified anxiety disorders, G43.009 - Migraine without aura, not intractable, without status migrainosus, J45.20 - Mild intermittent asthma, uncomplicated, K21.9 - Gastro-esophageal refl ux disease without esophagitis Basic Metabolic Panel Fasting 08/17/24 E55.9 - Vitamin D deficiency, unspecified, E66.9 - Obesity, unspecified, F41.8 - Other specified anxiety disorders, G43.009 - Migraine without aura, not intractable, without status migrainosus, J45.20 - Mild intermittent asthma, uncomplicated, K21.9 - Gastro- esophageal reflux disease without esophagitis Lipid Panel 08/17/24 E55.9 - Vitamin D deficiency, unspecified, E66.9 - Obesity, unspecified, F41.8 - Other specified anxiety disorders, G43.009 - Migraine without aura, not intractable, without status migrainosus, J45.20 - Mild intermittent asthma, uncomplicated, K21.9 - Gastro-esophageal reflux disease without esophagitis Vitamin D 25-OH Total 08/17/24 E55.9 - Vitamin D deficiency, unspecified, E66.9 - Obesity, unspecified, F41.8 - Other specified anxiety disorders, G43.009 - Migraine without aura, not intractable, without status migrainosus, J45.20 - Mild intermittent asthma, uncomplicated, K21.9 - Gastro-esophageal reflux disease without esophagitis Influenza [id number] Immunization 08/14/24 Z23 - Encounter for immunization Alanine Aminotransferase 08/17/24 E55.9 - Vitamin D deficiency, unspecified, E66.9 - Obesity, unspecified, F41.8 - Other specified anxiety disorders, G43.009 - Migraine without aura, not intractable, without status migrainosus, J45.20 - Mild intermittent asthma, uncomplicated, K21.9 - Gastro-esophageal reflux disease without esophagitis CA echo transthoracic complete 08/14/24 R01.1 - Cardiac murmur, unspecified Referrals Nephrology Referral R03.0 - Elevated blood-pressure reading, without diagnosis of hypertension
== END 2024-08-14 13:53 | disposition home or self-care (01) ==
LOC: HO.HMCC 12:54
PROVIDERS: PCP Internal Medicine; Visit Provider Internal Medicine
DX: Z00.00 Encounter for general adult medical examination without abnormal findings (principal); R03.0 Elevated blood-pressure reading, without diagnosis of hypertension; E66.9 Obesity, unspecified; Z68.41 Body mass index [BMI] 40.0-44.9, adult; F41.8 Other specified anxiety disorders; G43.009 Migraine without aura, not intractable, without status migrainosus; J45.20 Mild intermittent asthma, uncomplicated; E55.9 Vitamin D deficiency, unspecified; K21.9 Gastro-esophageal reflux disease without esophagitis; R01.1 Cardiac murmur, unspecified

== ENCOUNTER → 2024-08-14 12:54 | Outpatient (BNVA) | payer OTHER, SELFPAY | PROVIDERS: PCP Internal Medicine; Visit Provider Internal Medicine | DX: Z00.01 Encounter for general adult medical examination with abnormal findings (principal); Z23 Encounter for immunization; R03.0 Elevated blood-pressure reading, without diagnosis of hypertension; E66.9 Obesity, unspecified; F41.8 Other specified anxiety disorders; G43.009 Migraine without aura, not intractable, without status migrainosus; J45.20 Mild intermittent asthma, uncomplicated; E55.9 Vitamin D deficiency, unspecified; K21.9 Gastro-esophageal reflux disease without esophagitis; R01.1 Cardiac murmur, unspecified | CPT/HCPCS: 90471; 90656; 96127; 99395 ==

== ENCOUNTER 2024-08-17 11:35 | Outpatient (REF) | payer OTHER, SELFPAY ==
[2024-08-17 14:12] LABS: Alanine Aminotransferase 14 U/L (0-31); Anion Gap 11 (12-20); Aspartate Amino Transferase 16 U/L (5-31); Blood Urea Nitrogen 11 mg/dL (9-16); Calcium 9.3 mg/dL (8.4-10.2); Carbon Dioxide 26 mmol/L (22-29); Chloride 108 mmol/L (96-108); Cholesterol 196 mg/dL (<200); Estimated Glomerular Filt Rate 56; Glucose Fasting 95 mg/dL (60-99); HDL Cholesterol 71 mg/dL (>40); LDL Cholesterol Calculated 107 mg/dL (<100); Sodium 141 mmol/L (135-145); Triglycerides 93 mg/dL (<150)
[2024-08-17 14:25] LABS: Vitamin D 25-OH Total 31.8 ng/mL (>30)
== END 2024-08-17 11:36 | disposition home or self-care (01) ==
LOC: HO.HMGCLDS 11:35
PROVIDERS: PCP Internal Medicine; Visit Provider Internal Medicine
DX: G43.009 Migraine without aura, not intractable, without status migrainosus (principal); E66.9 Obesity, unspecified; F41.8 Other specified anxiety disorders; J45.20 Mild intermittent asthma, uncomplicated; E55.9 Vitamin D deficiency, unspecified; K21.9 Gastro-esophageal reflux disease without esophagitis
CPT/HCPCS: 36415; 80048; 80061; 82306; 84450; 84460

== ENCOUNTER 2024-09-11 16:03 | Outpatient (AMB) | payer OTHER, SELFPAY ==
--- NOTE | 2024-09-11 16:05 | HO.NEPHOV_ITS ---
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 She does not check/ monitor her BP at home. She has no history of diabetes mellitus, palpitation, orthostasis. She has high BMI and is not very strict with low-sodium diet. She claimed to have lost weight but gained back after her gallbladder surgery. She has no history of glomerular diseases. Her renal function is normal. She has no history of proteinuria. She is compliant with her medications. She takes nonsteroidal anti- inflammatories as needed. She takes clonidine 0.1 mg daily at night for mental health reasons. She denies chest pain, shortness of breath, proximal nocturnal dyspnea, orthopnea, pedal edema, hematuria, or renal calculi. She feels tired in the mornings when she wakes up and does not feel rested. She does not check her blood pressure regularly at home. 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 Brother No problems noted. Brother No problems noted. 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 Cognitive needs: No Hearing needs: No Vision needs: No Female Reproductive History Menstrual Age of Menarche: 13 Review of Systems Const All systems reviewed & are unremarkable except as noted in HPI and below Physical Exam Vital Signs: Last Vital Signs Pulse 84 09/11/24 16:08 BP 150/100 H 09/11/24 16:08 Pulse Ox 98 09/11/24 16:08 Oxygen Delivery Method Room Air 09/11/24 16:08 BMI result Body Mass Index 42.2 Const General: comfortable and no acute distress Orientation/consciousness: patient oriented x3 HEENT Head: Yes normocephalic Mouth: Normal oral and palatal mucosa present Eyes EOM: EOMs intact bilaterally Neck Neck: Yes supple Resp Auscultation: clear to auscultation bilaterally Cardio Jugular venous distension: no JVD Rate: regular rate GI Palpation (GI): Soft to palpation Auscultation: normal bowel sounds General: Yes no CVA tenderness Back/Spine/Pelvis Back: no CVA tenderness Skin General skin exam: no rashes or lesions noted Neuro General: patient oriented x3 and moves all extremities Extrem General: Yes no pedal edema Results Reviewed Nephrology Results: Hgb 12.8 g/dl (12.0-16.0) 11/13/23 WBC 7.6 X10*3/uL (4.8-10.8) 11/13/23 Plt Count 163 X10*3/uL (160-400) 11/13/23 Sodium 141 mmol/L (135-145) 08/17/24 Potassium 4.0 mmol/L (3.3-5.1) 08/17/24 Chloride 108 mmol/L (96-108) 08/17/24 Carbon Dioxide 26 mmol/L (22-29) 08/17/24 BUN 11 mg/dL (9-16) 08/17/24 Creatinine 1.13 mg/dL (0.5-1.4) 08/17/24 Calcium 9.3 mg/dL (8.4-10.2) 08/17/24 Assessment & Plan Assessment & Plan (1) Hypertension: Code(s): I10 - Essential (primary) hypertension Category: Medical Qualifiers: Hypertension type: primary hypertension Qualified Code(s): I10 - Essen tial (primary) hypertension Plan Cassidy has hypertension. She has high BMI. Her renal functions are normal. She is not a diabetic. She does not monitor blood pressure at home. She is not compliant with low-sodium diet. She has symptoms suggestive of sleep apnea. I ordered detailed workup including 24 hour ambulatory blood pressure monitor as well as Doppler of her renal arteries. She was encouraged to lose weight and maintain low-sodium diet. She will benefit from sleep study. All these have been discussed in detail. She will be seen in a few weeks in the office in follow-up. At that time I will optimize her blood pressure medications to get her blood pressure to goal based on evolving data. Orders: Orders Electrolytes 2 Weeks I10 - Essential (primary) hypertension Calcium 2 Weeks I10 - Essential (primary) hypertension Renin 2 Weeks I10 - Essential (primary) hypertension Aldost/Renin 2 Weeks I10 - Essential (primary) hypertension US renal doppler 2 Weeks I10 - Essential (primary) hypertension Protein Creatinine Ratio, Ur 2 Weeks I10 - Essential (primary) hypertension Creatinine 2 Weeks I10 - Essential (primary) hypertension Blood Urea Nitrogen 2 Weeks I10 - Essential (primary) hypertension TSH reflex Free T4 2 Weeks I10 - Essential (primary) hypertension Cortisol Random 2 Weeks I10 - Essential (primary) hypertension Metanephrines, Plasma 2 Weeks I10 - Essential (primary) hypertension Aldosterone 2 Weeks I10 - Essential (primary) hypertension AMB 24 HR B/P Monitor PLACEMENT 2 Weeks I10 - Essential (primary) hypertension Coding Level of Care Code New Pt Level 4 (29607) Diagnoses Primary hypertension I10 Hypertension type: primary hypertension
[2024-09-11 16:08] VITALS: BP 150/100; PULSE 84; O2SAT 98; BMI 42.2
== END 2024-09-11 16:32 | disposition home or self-care (01) ==
PROVIDERS: PCP Internal Medicine; Referring Provider Internal Medicine; Visit Provider Internal Medicine Nephrology
DX: I10 Essential (primary) hypertension (principal)
CPT/HCPCS: 99204

== ENCOUNTER → 2024-09-11 16:03 | Outpatient (BNVA) | payer OTHER, SELFPAY | PROVIDERS: PCP Internal Medicine; Referring Provider Internal Medicine; Visit Provider Internal Medicine Nephrology | DX: I10 Essential (primary) hypertension (principal); Z79.899 Other long term (current) drug therapy | CPT/HCPCS: 99202 ==

== ENCOUNTER → 2024-09-16 14:08 | Outpatient (REF) | payer OTHER, SELFPAY ==
--- NOTE | 2024-09-16 14:11 | CA_ITS ---
Transthoracic Echocardiogram Patient (Last, First, Middle): Cassidy Cartwright, Gender: Female Date of : 1990 Age: 34 Procedure Date: 09/16/2024 Procedure Type: Transthoracic Echocardiogram Location: OP Height: 160.02 cm Weight: 101.61 kg BSA: 2.03 m2 Heart Rate: bpm BP: 130 / 90 mmHg Salt Lifter: SAY Referring MD: Mindy Hutchinson MD Symptoms: R01.1 - Cardiac murmur, unspecified Study Quality: Fair, contrast ECG Rhythm: Sinus Conclusions: - The left ventricular systolic function is normal. The visually estimated ejection fraction is between 60-65%. - No obvious valvular pathology seen on this study. Findings Procedure Information Contrast agent, definity, is being given per protocol without apparent complications. Left Ventricle Normal left ventricular cavity size. There is normal left ventricular wall thickness. The left ventricular systolic function is normal. The visually estimated ejection fraction is between 60-65%. There is no evidence of regional wall motion abnormalities. Diastolic function is normal for age. Right Ventricle Normal right ventricular cavity size and systolic function. Atria Both atria are normal in size. Aortic Valve There is a normal trileaflet aortic valve. There is no aortic valve stenosis. There is trace (trivial) aortic valve regurgitation. Mitral Valve The mitral valve appears normal. There is no mitral valve regurgitation. There is no mitral valve stenosis. Pulmonic Valve The pulmonic valve is likely normal. Tricuspid Valve There is trace tricuspid valve regurgitation. There is no evidence of pulmonary hypertension. Great Vessels The asc aorta is normal in size. Venous The inferior vena cava is normal in size and collapses greater than 50% with inspiration. Pericardium/Pleural There is no evidence of pericardial effusion. Prior Study Comparison No prior study available for comparison. Recommendations, Care & Conclusions No obvious valvular pathology seen on this study. Measurements 2D Linear Measurements IVSd: 0.96 0.6-0.9/0.6-1.0 cm LVIDd: 4.83 3.9-5.3/4.2-5.9 cm LVIDd Index: 2.38 2.4-3.2/2.2-3.1 cm/m2 LVIDs: 2.98 2.0-3.6 cm LVPWd: 1.12 0.7-1.1 cm LA Diam: 3.50 2.7-3.8/3.0-4.0 cm LAIDs Index: 1.72 1.5-2.3 cm/m2 LV Mass: 225.95 67-162/88-224 g LV Mass Index: 111.31 43-95/49-115 g/m2 LVOT Diam: 2.00 3.0+(-)1.3 cm 2D Systolic Function EF 4C: 64.10 >55% EF 2C: 69.20 >55% EF BiP: 66.70 >55% Mitral Valve MV Pk E: 1.24 MV PK A: 1.03 MV Decel Time: 173.00 E/A: 1.20 E'Lateral: 10.60 E'Medial: 8.21 E/E' Med: 15.10 E/E' Lat: 11.70 PHT: 51.00 MVA PHT: 4.31 Decel [place]: 7.15 Aortic Valve AoV Pk Lino: 2.30 AoV Mn Lino: 1.56 AoV VTI: 0.48 AoV Pk Grad: 21.00 Aov Mn Grad: 11.00 JELENA Cont.VTI: 1.82 LVOT LVOT Pk Lino: 1.35 LVOT Mn Lino: 0.95 LVOT VTI: 0.28 LVOT Pk Grad: 7.00 LVOT Mn Grad: 4.00 LVOT Diam: 2.00 LVOT Area: 3.14 Diastolic Function MV Pk E: 1.24 MV Pk A: 1.03 E/A: 1.20 E'Medial: 8.21 E/E' Med: 15.10 E' Laterial: 10.60 E/E' Lat: 11.70 Right Ventricle TAPSE (mm): 34.10 TVS' Lino: 18.60 Tricuspid Valve RA Press: 3.00 Great Vessels Aorta Sinus of Valsalva: 2.74 2.0-3.[address] [place]: 2.26 1.7-3.4 cm Ao Asc: 2.80 2.1-3.4 cm Updated in Other Vendor System with Status of Final Maximilian Felix MD electronically signed on 09/16/2024 3:52:00 PM with status of Final
== END ==
LOC: HO.CARD 14:08
PROVIDERS: PCP Internal Medicine; Visit Provider Internal Medicine
DX: R01.1 Cardiac murmur, unspecified (principal)
CPT/HCPCS: 93306; Q9957

== ENCOUNTER → 2024-09-16 14:11 | Outpatient (BNV) | payer OTHER, SELFPAY | PROVIDERS: PCP Internal Medicine; Visit Provider Internal Medicine | DX: R01.1 Cardiac murmur, unspecified (principal) | CPT/HCPCS: 93306 ==

== ENCOUNTER 2024-09-16 15:15 | Outpatient (REF) | payer OTHER, SELFPAY ==
[2024-09-16 17:07] LABS: Creatinine Urine 104.94 mg/dL; Protein/Creatinine Ratio, Ur 0.51 (<0.2); Total Protein Urine Random 54 mg/dL (<12)
[2024-09-16 17:07] LABS: Anion Gap 11 (12-20); Blood Urea Nitrogen 13 mg/dL (9-16); Calcium 8.7 mg/dL (8.4-10.2); Carbon Dioxide 27 mmol/L (22-29); Chloride 106 mmol/L (96-108); Estimated Glomerular Filt Rate 55; Potassium 3.6 mmol/L (3.3-5.1); Sodium 140 mmol/L (135-145)
[2024-09-16 17:24] LABS: TSH reflex Free T4 1.78 uIU/mL (0.32-4.0)
[2024-09-16 17:26] LABS: Cortisol Random 8.4 ug/dL
[2024-09-21 07:58] LABS: Metanephrine, Free 28 pg/mL (<=57); Normetanephrines, Free 147 pg/mL (<=148); Total Metanephrine, Free 175 pg/mL (<=205)
[2024-09-21 12:13] LABS: Renin 3.62 ng/mL/h (0.25-5.82)
[2024-09-24 13:04] LABS: Aldosterone/Renin Ratio 3.2 Ratio (0.9-28.9); Plasma Renin Activity 4.35 ng/mL/h (0.25-5.82)
== END 2024-09-16 15:16 | disposition home or self-care (01) ==
LOC: HO.LAB 15:15
PROVIDERS: PCP Internal Medicine; Visit Provider Internal Medicine Nephrology
DX: I10 Essential (primary) hypertension (principal)
CPT/HCPCS: 36415; 80051; 82088; 82310; 82533; 82565; 82570; 83835; 84156; 84244; 84443; 84520

== ENCOUNTER → 2024-09-26 08:46 | Outpatient (BNVA) | payer OTHER, SELFPAY | PROVIDERS: PCP Internal Medicine; Visit Provider Internal Medicine Nephrology ==

== ENCOUNTER 2024-09-27 13:54 | Outpatient (REF) | payer OTHER, SELFPAY ==
--- NOTE | ~2024-09-27 | US_ITS ---
EXAMINATION: US RETROPERITONEAL LIMITED (RENAL ONLY). ULTRASOUND RENAL DOPPLER CLINICAL INFORMATION: Hypertension. COMPARISON: None available. TECHNIQUE: Grayscale imaging of the kidneys followed by renal Doppler was performed. FINDINGS: RIGHT KIDNEY: 11.0 x 4.0 x 4.9 cm (SAG x AP x TRV). The kidney is normal in size, contour, and echogenicity. Renal cortical thickness is normal. There is normal cortical thickness. There is anechoic cyst in the upper pole measuring 0.8 x 0.9 x 0.8 cm and lower pole measuring 1.0 x 1.0 1.0 cm. There is an echogenic stone in the upper pole measuring 0.4 x 0.3 x 0.3 cm. No calyectasis or hydronephrosis seen. LEFT KIDNEY: 11.4 x 4.4 x 5.5 cm (SAG x AP x TRV). The kidney is normal in size, contour, and mild increased echogenicity. Renal cortical thickness is normal. No calculi or focal parenchymal lesions. No hydronephrosis. RENAL DOPPLER: Right kidney: Proximal renal artery velocity measures 1 45 cm/second, mid segment measures 10 8 cm/second and distal segment measures 179 cm/second. Renal aortic ratio measures 1.35. Segmental resistive index measures less than 0.8. Left kidney: Proximal renal velocity measures 151 cm/second, mid segment measures 121 cm/second and distal segment measures 123 cm/second. Renal aortic ratio measures 1.20. Average segmental visible index is less than 0.8. Mid abdominal aorta velocity measures 133 cm/second. Degree limited aortic velocity renal aortic ratio evaluation is not accurate US/US renal doppler IMPRESSION: Mild increased echogenicity left kidney. No focal lesion in the left kidney. No hydronephrosis. Small echogenic nonobstructive stone upper pole and upper and lower pole simple renal cysts. Renal Doppler evaluation of both kidneys reveals normal renal artery velocities and resistive indices. There is no suggestion for renal artery stenosis. Electronically signed by: Darien Mills MD 09/30/2024 11:34 AM [facility]
--- NOTE | ~2024-09-27 | US_ITS ---
EXAMINATION: US RETROPERITONEAL LIMITED (RENAL ONLY). ULTRASOUND RENAL DOPPLER CLINICAL INFORMATION: Hypertension. COMPARISON: None available. TECHNIQUE: Grayscale imaging of the kidneys followed by renal Doppler was performed. FINDINGS: RIGHT KIDNEY: 11.0 x 4.0 x 4.9 cm (SAG x AP x TRV). The kidney is normal in size, contour, and echogenicity. Renal cortical thickness is normal. There is normal cortical thickness. There is anechoic cyst in the upper pole measuring 0.8 x 0.9 x 0.8 cm and lower pole measuring 1.0 x 1.0 1.0 cm. There is an echogenic stone in the upper pole measuring 0.4 x 0.3 x 0.3 cm. No calyectasis or hydronephrosis seen. LEFT KIDNEY: 11.4 x 4.4 x 5.5 cm (SAG x AP x TRV). The kidney is normal in size, contour, and mild increased echogenicity. Renal cortical thickness is normal. No calculi or focal parenchymal lesions. No hydronephrosis. RENAL DOPPLER: Right kidney: Proximal renal artery velocity measures 1 45 cm/second, mid segment measures 10 8 cm/second and distal segment measures 179 cm/second. Renal aortic ratio measures 1.35. Segmental resistive index measures less than 0.8. Left kidney: Proximal renal velocity measures 151 cm/second, mid segment measures 121 cm/second and distal segment measures 123 cm/second. Renal aortic ratio measures 1.20. Average segmental visible index is less than 0.8. Mid abdominal aorta velocity measures 133 cm/second. Degree limited aortic velocity renal aortic ratio evaluation is not accurate US/US renal BI IMPRESSION: Mild increased echogenicity left kidney. No focal lesion in the left kidney. No hydronephrosis. Small echogenic nonobstructive stone upper pole and upper and lower pole simple renal cysts. Renal Doppler evaluation of both kidneys reveals normal renal artery velocities and resistive indices. There is no suggestion for renal artery stenosis. Electronically signed by: Darien Mills MD 09/30/2024 11:34 AM EST
== END 2024-09-27 13:55 | disposition home or self-care (01) ==
LOC: HO.HMGCX 13:54
PROVIDERS: PCP Internal Medicine; Visit Provider Internal Medicine Nephrology
DX: I10 Essential (primary) hypertension (principal)
CPT/HCPCS: 76775; 93975

== ENCOUNTER → 2024-09-27 13:55 | Outpatient (BNV) | payer OTHER, SELFPAY | PROVIDERS: PCP Internal Medicine; Visit Provider Radiology Diagnostic Radiology | DX: I10 Essential (primary) hypertension (principal) | CPT/HCPCS: 76775; 93975 ==

== ENCOUNTER 2024-10-04 20:36 | Emergency (ER) | payer OTHER, SELFPAY ==
--- NOTE | 2024-10-04 | ECG_ITS ---
Test Reason : CHEST PAIN Blood Pressure : / mmHG Vent. Rate : 101 BPM Atrial Rate : 101 BPM P-R Int : 146 ms QRS Dur : 076 ms QT Int : 360 ms P-R-T Axes : 040 039 026 degrees QTc Int : 466 ms Sinus tachycardia Otherwise normal ECG When compared with ECG of 18-JUL-2016 19:53, No significant change was found Referred By: Generic ED Physician Electronically Signed By:JENELLE LOPEZ MD
--- NOTE | ~2024-10-04 | XR_ITS ---
CLINICAL HISTORY: chest pain 2 view chest x-ray Comparison: 04/09/2023 Findings: The lungs are clear. Heart size is normal. No acute fracture. IMPRESSION: 1. No acute findings. This document has been electronically signed by: Denzel Alexandre MD on 10/04/2024 21:20:43
[2024-10-04 20:44] VITALS: BP 200/120; PULSE 98; RESP 18; TEMP 36.8; O2SAT 98; BMI 41.9
--- NOTE | 2024-10-04 20:46 | ED.GENADULT ---
HPI - General Adult General Chief complaint: Chest Pain Stated complaint: chest pain, bilat hip pain Time Seen by Provider: 10/05/24 01:46 Source: patient Mode of arrival: ambulatory Limitations: no limitations History of Present Illness ED Provider: HPI narrative: Patient's history of anxiety depression intellectual disability comes here for chest pain started yesterday with shortness a breath and dizziness on arrival patient's blood pressure was elevated patient has missed her clonidine dose denies any headache Related Data Home Medications ?Medication ?Instructions ?Recorded ?Confirmed sumatriptan succinate 50 mg tablet 50 mg PO DAILY 07/03/20 08/14/24 polyvinyl alcohol 1.4 % eye drops 1 drp ophthalmic (eye) DAILY 07/06/21 08/14/24 (Artificial Tears (polyvinyl alcohol)) melatonin 5 mg tablet 5 mg PO BEDTIME 07/26/21 08/14/24 erythromycin 5 mg/gram (0.5 %) eye 1 appl ophthalmic (eye) DAILY 01/24/23 08/14/24 ointment trazodone 150 mg tablet 150 - 300 mg PO BEDTIME PRN 01/24/23 08/14/24 Insomnia verapamil 120 mg tablet,extended 120 mg PO DAILY 08/14/24 08/14/24 release clonidine HCl 0.1 mg tablet 0.1 mg PO DAILY 09/11/24 Previous Rx's ?Medication ?Instructions ?Recorded oxcarbazepine 600 mg tablet 600 mg PO BID #60 tabs 05/30/22 (Trileptal) hydrocortisone 1 % topical cream 1 appl topical TID PRN skin 06/16/23 (Preparation H Hydrocortisone) irritation/ painful hemorrhoid #28.4 grams clotrimazole-betamethasone 1 1 appl topical BID Rash under 06/28/23 %-0.05 % topical cream breast #45 grams albuterol sulfate 2.5 mg/3 mL 2.5 mg (3 mL) inhalation Q6H PRN 07/31/23 (0.083 %) solution for nebulization shortness of breath or wheezing #75 mL albuterol sulfate 90 mcg/actuation 2 puff inhalation Q6H PRN 07/31/23 aerosol inhaler bronchospasm #8.5 grams menthol-thymol topical liniment 1 appl topical TID PRN pain #480 mL 07/31/23 (Absorbine JrRahat Original topical liniment) naproxen sodium 550 mg tablet 550 mg PO BID PRN pain #30 tabs 08/16/23 multivitamin 1 tab PO DAILY #90 tabs 05/10/24 docusate sodium 100 mg capsule 200 mg (2 x 100 mg) PO .COMPLEX 06/07/24 (Colace) #180 caps famotidine 40 mg tablet 40 mg PO DAILY heartburn #90 tabs 09/02/24 bisacodyl 5 mg tablet,delayed 5 mg PO BEDTIME PRN constipation 10/05/24 release (Dulcolax (bisacodyl)) #30 tabs Allergies Allergy/AdvReac Type Severity Reaction Status Date / Time amoxicillin [AMOXICILLIN] Allergy Severe ANAPHYLAXIS, Verified 10/04/24 20:47 swelling Penicillins [PENICILLINS] Allergy Severe ANAPHYLAXIS Verified 10/04/24 20:47 polyethylene glycol 3350 Allergy Severe ANAPHYLAXIS Verified 10/04/24 20:47 [From MIRALAX] sulindac [SULINDAC] Allergy Severe SWELLING Verified 10/04/24 20:47 senna Allergy Intermediate Unknown Verified 10/04/24 20:47 seafood Allergy Hives Verified 10/04/24 20:47 Review of Systems Review of Systems: Yes all other systems are reviewed and are negative [facility] Past Medical History Medical History Annual visit for general adult medical examination with abnormal findings Heart murmur, systolic Breast pain Right Achilles tendinitis Erythema intertrigo External hemorrhoids Bleeding hemorrhoids Right sided abdominal pain Vitamin D deficiency Heel callus Need for pneumococcal vaccination Mild intermittent asthma in adult without complication Ex-cigarette smoker Motion sickness Mild intellectual disability Porcelain gallbladder Migraine Depression with anxiety Obesity Dysmenorrhea 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 Brother No problems noted. Brother No problems noted. Maternal Aunt Breast cancer Maternal Grandmother Hypertension Social History Social History Household Members: Other Housing Other:: long-term Are you a primary direct care specialist to a significant other at home: No Alcohol intake: never Patient Tobacco Use Status: Former Tobacco user Tobacco use type: Cigarette Cigarettes Per Day: 0 Smoked in Last 30 Days: No e-Cigarette/Vaping Use: Never Used Second Hand Smoke Exposure: No Use of substances other than those prescribed or required for medical reasons: No Advance Directives: No Advance Directives Information Provided: Yes Do you have a plan to hurt others: No Plan Patient : No service: No 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al status: disabled 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 Oriented X3. No acute distress. Anxious Eyes: PERRLA, No Nystagmus ENT: Pharynx normal. Oral Mucosa moist Neck: Normal inspection. Neck supple. CVS: Normal heart rate and rhythm. Pulses normal. Respiratory: No respiratory distress. Equal air entry bilateral, no wheezing/rales/rhonchi Abdomen: Soft and nontender. Bowel sounds are present, no mass palpable, no CVA tenderness Skin: Skin warm and dry. Normal skin color. Normal skin turgor. Extremities: No lower extremity edema. No calf tenderness Neuro: Oriented X 3. No motor deficit. No sensory deficit.No cerebellar signs , cranial nerves II-XII intact Course Course Course Narrative: This is a rapid medical exam performed by Dung Pack NP: Additional HPI, ROS, PE not included below will be deferred to primary provider. Patient is a 34-year-old female with history of HTN, GERD, s/p lap mikey, asthma, ex-smoker presenting with complaint of chest pain, dizziness, and shortness of breath since yesterday, worse today. BP 200/120 in triage. Plan: EKG, labs, CXR Medications Administered Discontinued Medications Generic Name Dose Route Start Last Admin Trade Name Freq PRN Reason Stop Dose Admin Bisacodyl 10 mg 10/05/24 03:51 10/05/24 04:00 Bisacodyl 5 Mg Tablet.Dr GARRETT 10/05/24 03:52 10 mg ONCE ONE Administration Clonidine HCl 0.2 mg 10/05/24 03:57 10/05/24 04:01 Clonidine Hcl 0.2 Mg Tablet PO 10/05/24 03:58 0.2 mg ONCE ONE Administration Protocol Medical Decision Making Medical Decision Making [facility] Narrative: Patient has atypical chest pain with elevated blood pressure with increased anxiety 2 sets of cardiac enzymes without any delta change EKG without ischemic change patient has missed her coronary dose in the evening which was given blood pressure improved patient discharged home advised to follow with PCP Differential Diagnosis Differential Diagnoses: The differential diagnosis associated with the presentation includes Admission/Observation Consideration of admission/observation: Escalation of care including admission/observation considered Lab Data [facility] Lab Attestation statement: I reviewed the patient's lab results. 10/04/24 21:11 10/04/24 21:11 Labs: Lab Results 10/04/24 10/04/24 10/05/24 Range/Units 21:11 23:50 02:13 WBC 8.0 (4.8-10.8) X10*3/uL RBC 4.31 (4.20-5.50) X10*6/uL Hgb 12.1 (12.0-16.0) g/dl Hct 34.4 L (37.0-47.0) % MCV 79.8 L (80.0-98.0) fL MCH 28.1 (27.0-33.0) pg MCHC 35.2 H (31.0-35.0) g/dl RDW 13.3 (11.0-16.0) % Plt Count 165 (160-400) X10*3/uL MPV 10.8 (9.4-12.3) fL Immature Gran % (Auto) 0.4 (0.0-0.4) % Neut % (Auto) 72.9 (45-73) % Lymph % (Auto) 17.2 L (20-40) % [place] % (Auto) 8.1 (2-11) % Eos % (Auto) 0.7 (0-4) % Baso % (Auto) 0.7 (0-2) % Lymph # (Auto) 1.4 (1.2-4.9) X10*3/uL [place] # (Auto) 0.7 (0.1-1.2) X10*3/uL Eos # (Auto) 0.1 (0.0-0.4) X10*3/uL Baso # (Auto) 0.1 (0.0-0.2) X10*3/uL Abs Immat Gran (auto) 0.03 (0.00-0.03) X10*3/uL Absolute Neuts (auto) 5.8 (2.0-8.3) x10*3/uL Absolute Nucleated RBC 0.000 (0.0-0.012) X10*3/uL Nucleated RBC % (auto) 0.0 (0.0-0.2) /100WBC PT 11.4 (10.9-12.4) SEC INR 1.0 (0.9-1.1) Sodium 141 (135-145) mmol/L Potassium 3.7 (3.3-5.1) mmol/L Chloride 109 H (96-108) mmol/L Carbon Dioxide 23 (22-29) mmol/L Anion Gap 13 (12-20) BUN 13 (9-16) mg/dL Creatinine 1.18 (0.5-1.4) mg/dL Estim Creat Clear Calc 80.2 Estimated GFR 53 Random Glucose 101 (60-115) mg/dL Calcium 8.5 (8.4-10.2) mg/dL Total Bilirubin 0.2 (0.0-1.0) mg/dL AST < 6 (5-31) U/L ALT < 6 (0-31) U/L Alkaline Phosphatase 95 (39-117) U/L Troponin I High Sens 20.2 H 20.6 H (<3.5-17.0) ng/L Total Protein 7.1 (6.5-8.0) g/dL Albumin 4.2 (3.5-5.0) g/dL Urine Color Yellow Urine Appearance Clear Urine pH 6.0 (5.0-9.0) Ur Specific [place] 1.010 (1.005-1.025) Urine Protein 30 (1+) H (Neg-Trace) mg/dL Urine Glucose (UA) Negative (Negative) mg/dL Urine Ketones Negative (Negative) mg/dL Urine Blood Negative (Negative) Urine Nitrite Negative (Negative) Ur Leukocyte Esterase Negative (Negative) Urine RBC 0-2 (0-2) /HPF Urine WBC 0-5 (0-5) /HPF Ur Squamous Epith Cells 0-2 (0-2) /HPF Urine Bacteria None Seen (None Seen) Hyaline Casts 0-2 (0-2) /LPF Urine Test NEGATIVE (NEGATIVE) Influenza Type A (PCR) NEGATIVE (Negative) Influenza Type B (PCR) NEGATIVE (Negative) RSV RNA Qual (PCR) NEGATIVE (Negative) SARS-CoV-2 RNA (RT-PCR) NEGATIVE (Negative) Independent Interpretation I performed an independent interpretation of an: EKG Interpretation: Sinus tachycardia with heart rate 101 beats per minute normal intervals normal axis no acute ST-T changes no acute ischemia Discharge Plan Discharge Clinical Impression: Chest pain, Constipation Patient Disposition: Home, Self-Care Instructions: Chest Pain (ED), Constipation (ED) Additional Instructions: Drink plenty of fluids Take stool softener as advised, Have Prune juice, take Dulcolax daily as needed Prescriptions: New bisacodyl [Dulcolax (bisacodyl)] 5 mg tablet,delayed release (DR/EC) 5 mg PO BEDTIME PRN (Reason: constipation) Qty: 30 0RF No Action oxcarbazepine [Trileptal] 600 mg tablet 600 mg PO BID Qty: 60 3RF clotrimazole-betamethasone 1-0.05 % cream 1 appl topical BID Qty: 45 0RF naproxen sodium 550 mg tablet 550 mg PO BID PRN (Reason: pain) Qty: 30 1RF Rx Instructions: take one tablet BID for the first few days of cramping with menses, then stop. Repeat as needed each cycle multivitamin Tablet 1 tab PO DAILY Qty: 90 1RF docusate sodium [Colace] 100 mg capsule 200 mg PO .COMPLEX Qty: 180 1RF Rx Instructions: 200 mg orally daily in PM; famotidine 40 mg tablet 40 mg PO DAILY Qty: 90 0RF Rx Instructions: take 30 mins ac sumatriptan succinate 50 mg tablet 50 mg PO DAILY polyvinyl alcohol [Artificial Tears (polyvin alc)] 1.4 % drops 1 drp ophthalmic (eye) DAILY hydrocortisone [Preparation H Hydrocortisone] 1 % cream 1 appl topical TID PRN (Reason: skin irritation/ painful hemorrhoid) Qty: 28.4 0RF albuterol sulfate 90 mcg/actuation HFA aerosol inhaler 2 puff inhalation Q6H PRN (Reason: bronchospasm) Qty: 8.5 8RF albuterol sulfate 2.5 mg /3 mL (0.083 %) solution for nebulization 2.5 mg inhalation Q6H PRN (Reason: shortness of breath or wheezing) Qty: 75 5RF Absorbine JrRahat Original Liniment 1 appl topical TID PRN (Reason: pain) Qty: 480 2RF melatonin 5 mg tablet 5 mg PO BEDTIME trazodone 150 mg tablet 150 - 300 mg PO BEDTIME PRN (Reason: Insomnia) erythromycin 5 mg/gram (0.5 %) ointment 1 appl ophthalmic (eye) DAILY verapamil 120 mg tablet extended release 120 mg PO DAILY clonidine HCl 0.1 mg tablet 0.1 mg PO DAILY Interventions: ED Discharge Assessment Last Done: 10/05/24 04:05 Discharge Date/Time: 10/05/24 04:06 Print Language: Citizen Of [place]
[2024-10-04 21:18] LABS: MANUAL DIFF FLAG NO
[2024-10-04 21:21] LABS: Basophils Absolute Auto 0.1 X10*3/uL (0.0-0.2); Basophils Percent Auto 0.7 % (0-2); Eosinophils Absolute Auto 0.1 X10*3/uL (0.0-0.4); Eosinophils Percent Auto 0.7 % (0-4); Hematocrit 34.4 % (37.0-47.0); Hemoglobin 12.1 g/dl (12.0-16.0); Imm Gran Abs Auto 0.03 X10*3/uL (0.00-0.03); Imm Gran Pct Auto 0.4 % (0.0-0.4); Lymphocytes Absolute Auto 1.4 X10*3/uL (1.2-4.9); Lymphocytes Percent Auto 17.2 % (20-40); Mean Corpuscular HGB Conc 35.2 g/dl (31.0-35.0); Mean Corpuscular Hemoglobin 28.1 pg (27.0-33.0); Mean Corpuscular Volume 79.8 fL (80.0-98.0); Mean Platelet Volume 10.8 fL (9.4-12.3); Monocytes Absolute Auto 0.7 X10*3/uL (0.1-1.2); Monocytes Percent Auto 8.1 % (2-11); Neutrophils Absolute Auto 5.8 x10*3/uL (2.0-8.3); Neutrophils Percent Auto 72.9 % (45-73); Platelet Count 165 X10*3/uL (160-400); Red Blood Count 4.31 X10*6/uL (4.20-5.50); Red Cell Distribution Width 13.3 % (11.0-16.0)
[2024-10-04 21:35] LABS: Prothrombin Time 11.4 SEC (10.9-12.4)
[2024-10-04 21:43] LABS: Troponin-I High Sensitivity 20.2 ng/L (<3.5-17.0)
[2024-10-04 22:02] LABS: Influenza A PCR NEGATIVE (Negative); Influenza B PCR NEGATIVE (Negative); Resp Syncy Virus RNA Qual PCR NEGATIVE (Negative); SARS COV2 PCR INHOUSE NEGATIVE (Negative)
[2024-10-04 22:47] LABS: Albumin Level 4.2 g/dL (3.5-5.0); Alkaline Phosphatase 95 U/L (39-117); Anion Gap 13 (12-20); Bilirubin Total 0.2 mg/dL (0.0-1.0); Blood Urea Nitrogen 13 mg/dL (9-16); Calcium 8.5 mg/dL (8.4-10.2); Carbon Dioxide 23 mmol/L (22-29); Chloride 109 mmol/L (96-108); Creatinine Clr Calc Pharmacy 80.2; Estimated Glomerular Filt Rate 53; Glucose Random 101 mg/dL (60-115); Potassium 3.7 mmol/L (3.3-5.1); Sodium 141 mmol/L (135-145); Total Protein 7.1 g/dL (6.5-8.0)
[2024-10-04 22:59] LABS: Alanine Aminotransferase < 6 U/L (0-31); Aspartate Amino Transferase < 6 U/L (5-31)
[2024-10-04 23:13] VITALS: BP 200/109; PULSE 89; RESP 18; TEMP 36.7; O2SAT 99
[2024-10-04 23:37] VITALS: BP 176/74; PULSE 82; RESP 16; TEMP 36.3; O2SAT 99
[2024-10-05 00:20] LABS: Troponin-I High Sensitivity 20.6 ng/L (<3.5-17.0)
--- NOTE | 2024-10-05 02:00 | PC.NURSE ---
Pt reports unable to void today. Bladder scan shows 347ml of urine. Pt encouraged to void . Pt able to void clear yellow urine. Sample sent to the lab.
[2024-10-05 02:01] VITALS: BP 186/91; PULSE 82; RESP 16; TEMP 36.3; O2SAT 100
[2024-10-05 02:22] LABS: Appearance Urine Clear; Color Urine Yellow; Glucose Urine UA Negative (Negative); Leukocyte Esterase Urine Negative (Negative); Nitrite Urine Negative (Negative); UMIC TRIGGER UACC YES; Urine Blood Negative (Negative); Urine Ketones Negative (Negative); Urine Protein 30 (1+) mg/dL (Neg-Trace)
[2024-10-05 02:27] LABS: Bacteria Urine None Seen (None Seen); Hyaline Casts Urine 0-2 /LPF (0-2); RBC Urine 0-2 /HPF (0-2); Squamous Epithelial Cell Urine 0-2 /HPF (0-2); WBC Urine 0-5 /HPF (0-5)
[2024-10-05 02:32] LABS: UPreg QC Valid YES; Urine Pregnancy NEGATIVE (NEGATIVE)
[2024-10-05 03:56] VITALS: BP 188/111; PULSE 91; RESP 16; TEMP 36.6; O2SAT 99
[2024-10-05] MEDS: bisacodyL 5 MG TABLET.DR 10 MG PO (04:00)
[2024-10-05 04:01] VITALS: BP 188/111
[2024-10-05] MEDS: cloNIDine HCL 0.2 MG TABLET PO (04:01)
[2024-10-05 04:05] VITALS: BP 188/111; PULSE 94; RESP 18; TEMP 36.9; O2SAT 98
== END 2024-10-05 04:06 | disposition home or self-care (01) ==
PROVIDERS: Registered Nurse Emergency; Emergency Provider Internal Medicine; PCP Internal Medicine
DX: R07.9 Chest pain, unspecified (principal); K59.00 Constipation, unspecified; R06.02 Shortness of breath; J45.20 Mild intermittent asthma, uncomplicated; Z87.891 Personal history of nicotine dependence; Z79.899 Other long term (current) drug therapy; Z03.818 Encounter for observation for suspected exposure to other biological agents ruled out
CPT/HCPCS: 0241U; 36415; 71046; 80053; 81001; 81025; 84484; 85025; 85610; 93005; 99283; 99285

== ENCOUNTER → 2024-10-04 20:42 | Outpatient (BNV) | payer OTHER, SELFPAY | PROVIDERS: Emergency Provider Internal Medicine; PCP Internal Medicine; Visit Provider Internal Medicine Cardiovascular Disease | DX: R07.9 Chest pain, unspecified (principal) | CPT/HCPCS: 93010 ==

== ENCOUNTER → 2024-10-04 20:49 | Outpatient (BNV) | payer OTHER, SELFPAY | PROVIDERS: PCP Internal Medicine; Visit Provider Specialist | DX: R07.9 Chest pain, unspecified (principal) | CPT/HCPCS: 71046 ==

== ENCOUNTER 2024-10-11 16:21 | Outpatient (AMB) | payer OTHER, SELFPAY ==
[2024-10-11 16:23] VITALS: BP 148/108; PULSE 101; O2SAT 99; BMI 42.0
--- NOTE | 2024-10-11 16:23 | HO.NEPHOV ---
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 Accompanied by: Sharedliving provider Allergies amoxicillin [AMOXICILLIN] Allergy (Severe, Verified 10/11/24 16:26) ANAPHYLAXIS, swelling Penicillins [PENICILLINS] Allergy (Severe, Verified 10/11/24 16:26) ANAPHYLAXIS polyethylene glycol 3350 [From MIRALAX] Allergy (Severe, Verified 10/11/24 16:26) ANAPHYLAXIS sulindac [SULINDAC] Allergy (Severe, Verified 10/11/24 16:26) SWELLING senna Allergy (Intermediate, Verified 10/11/24 16:) Unknown seafood Allergy (Verified 10/11/24 16:) Hives HPI Comments Details: Cassidy is a 34 year old patient with hypertension who is currently on Verapamil 120 mg daily. She also takes Clonidine at night for mental health reasons. She does not check/ monitor her BP at home. She has no history of diabetes mellitus, palpitation, orthostasis. She has high BMI and is not very strict with low-sodium diet. She has no history of glomerular diseases. Her renal function is normal. She has no history of proteinuria. She is compliant with her medications. She takes nonsteroidal anti-inflammatories as needed. She denies chest pain, shortness of breath, proximal nocturnal dyspnea, orthopnea, pedal edema, hematuria, or renal calculi. She feels tired in the mornings when she wakes up and does not feel rested. 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 Brother No problems noted. Brother No problems noted. 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 Cognitive needs: No Hearing needs: No Vision needs: No Female Reproductive History Menstrual Age of Menarche: 13 Review of Systems Const All systems reviewed & are unremarkable except as noted in HPI and below Physical Exam Vital Signs: Last Vital Signs Pulse 101 H 10/11/24 16:23 BP 148/108 H 10/11/24 16:23 Pulse Ox 99 10/11/24 16:23 Oxygen Delivery Method Room Air 10/11/24 16:23 BMI result Body Mass Index 42.0 Const General: comfortable and no acute distress Orientation/consciousness: patient oriented x3 HEENT Head: Yes normocephalic Mouth: Normal oral and palatal mucosa present Eyes EOM: EOMs intact bilaterally Neck Neck: Yes supple Resp Auscultation: clear to auscultation bilaterally Cardio Jugular venous distension: no JVD Rate: regular rate GI Palpation (GI): Soft to palpation Auscultation: normal bowel sounds General: Yes no CVA tenderness Back/Spine/Pelvis Back: no CVA tenderness Skin General skin exam: no rashes or lesions noted Neuro General: patient oriented x3 and moves all extremities Extrem General: Yes no pedal edema Results Reviewed Nephrology Results: Hgb 12.1 g/dl (12.0-16.0) 10/04/24 WBC 8.0 X10*3/uL (4.8-10.8) 10/04/24 Plt Count 165 X10*3/uL (160-400) 10/04/24 Sodium 141 mmol/L (135-145) 10/04/24 Potassium 3.7 mmol/L (3.3-5.1) 10/04/24 Chloride 109 mmol/L (96-108) H 10/04/24 Carbon Dioxide 23 mmol/L (22-29) 10/04/24 BUN 13 mg/dL (9-16) 10/04/24 Creatinine 1.18 mg/dL (0.5-1.4) 10/04/24 Calcium 8.5 mg/dL (8.4-10.2) 10/04/24 Urine Protein 30 (1+) mg/dL (Neg-Trace) H 10/05/24 Urine Creatinine 104.94 mg/dL 09/16/24 Protein/Creatinin Ratio 0.51 (<0.2) H 09/16/24 Renal US 09/27/24 Assessment & Plan Assessment & Plan (1) Hypertension: Code(s): I10 - Essential (primary) hypertension Category: Medical Qualifiers: Hypertension type: primary hypertension Qualified Code(s): I10 - Essential (primary) hypertension (2) Proteinuria: Code(s): R80.9 - Proteinuria, unspecified Category: Medical Qualifiers: Proteinuria type: other Qualified Code(s): R80.8 - Other proteinuria Plan Cassidy has hypertension. She has high BMI. She is at risk for secondary FSGS. Her renal functions are normal. She is not a diabetic. She does not monitor blood pressure at home. She is not compliant with low-sodium diet. She has symptoms suggestive of sleep apnea. Doppler of her renal arteries was negative. She was encouraged to lose weight and maintain low-sodium diet. She will benefit from sleep study. I increased her Verapamil which I may switch to Diltiazem and add ARB. All these have been discussed in detail. Follow up given Medications: Changed From verapamil ER 240 mg PO DAILY To verapamil ER 240 mg PO DAILY 90 days 90 tabs 3RF Discontinued naproxen sodium take one tablet BID for the first few days of cramping with menses, then stop. Repeat as needed each cycle Discontinued Reason: Doctor's Order 550 mg PO BID PRN 30 tabs 1RF pain Coding Level of Care Code Est Pt Level 4 (03621) Diagnoses Primary hypertension I10 Hypertension type: primary hypertension Other proteinuria R80.8 Proteinuria type: other
== END 2024-10-11 16:54 | disposition home or self-care (01) ==
PROVIDERS: PCP Internal Medicine; Visit Provider Internal Medicine Nephrology
DX: I10 Essential (primary) hypertension (principal); R80.8 Other proteinuria
CPT/HCPCS: 99214

== ENCOUNTER → 2024-10-11 16:21 | Outpatient (BNVA) | payer OTHER, SELFPAY | PROVIDERS: PCP Internal Medicine; Visit Provider Internal Medicine Nephrology | DX: I10 Essential (primary) hypertension (principal); R80.8 Other proteinuria | CPT/HCPCS: 99212 ==

== ENCOUNTER → 2024-10-21 11:45 | Outpatient (BNV) | payer OTHER, SELFPAY | PROVIDERS: PCP Internal Medicine; Visit Provider Internal Medicine | DX: N64.4 Mastodynia (principal); N60.02 Solitary cyst of left breast; R92.333 Mammographic heterogeneous density, bilateral breasts | CPT/HCPCS: 76642; 77062; 77066 ==

== ENCOUNTER 2024-10-21 12:02 | Outpatient (REF) | payer OTHER, SELFPAY ==
--- NOTE | ~2024-10-21 | US_ITS ---
EXAMINATION: MM DIAGNOSTIC DIGITAL BREAST TOMOSYNTHESIS, BILATERAL Limited bilateral ultrasound. CLINICAL INFORMATION: Right breast pain. COMPARISON: Mammography: Comparison is made with relevant prior exams. TECHNIQUE: Digital breast mammography with tomosynthesis is performed in both the craniocaudal and mediolateral oblique views along with computer-aided detection (CAD). Limited bilateral ultrasound. FINDINGS: The breasts are heterogeneously dense, which may obscure small masses (ACR BI-RADS breast composition Category c). Left: There is a 6 mm circumscribed oval mass in the central outer breast middle depth. No suspicious calcifications or other abnormal findings. Targeted color Doppler ultrasound in the left breast from 4-5 o'clock demonstrates a hypoechoic oval circumscribed simple to minimally complicated cyst measuring 5 x 2 x 6 mm which correlates with the circumscribed oval mass on mammography and is benign. Right: BB marker denoting site of pain in the upper outer breast without underlying dense fibronodular breast tissue. Some architectural distortion underlying the BB which patient describes is from prior surgery. No suspicious calcifications or other abnormal findings. Targeted color Doppler ultrasound in the right breast demonstrates a hypoechoic oval irregular solid mass at 11:00 1 cm from the nipple measuring 12 x 10 x 7 mm which correlates with the patient's pain. Results are provided to the patient at time of visit by the technologist. US/US breast BI limited mamm only IMPRESSION: Left: Benign. Right: Solid irregular mass at 11:00. Recommend ultrasound-guided core needle biopsy at this time for further evaluation. The findings and recommendations were discussed with the patient the procedure will be scheduled. ASSESSMENT: BI-RADS BI-RADS 4 - Suspicious finding RECOMMENDATION: Biopsy recommended This patient's information was entered into a reminder system with a target due date for their next mammogram. Electronically signed by: Suze Dillon DO 10/21/2024 06:05 PM [facility] [place]
== END 2024-10-21 12:03 | disposition home or self-care (01) ==
LOC: HO.MAMMO 12:02
PROVIDERS: PCP Internal Medicine; Visit Provider Advanced Practice Midwife
DX: N64.4 Mastodynia (principal); R92.333 Mammographic heterogeneous density, bilateral breasts; N63.23 Unspecified lump in the left breast, lower outer quadrant; N63.11 Unspecified lump in the right breast, upper outer quadrant
CPT/HCPCS: 76642; 77062; 77066

== ENCOUNTER 2024-10-25 11:23 | Outpatient (AMB) | payer OTHER, SELFPAY ==
--- NOTE | 2024-10-25 11:17 | MHC.PC.OV ---
Intake Visit Reasons: F/U discuss med. Intake Note: Pt is having TH to discuss constipation medication Allergies amoxicillin [AMOXICILLIN] Allergy (Severe, Verified 10/25/24 11:40) ANAPHYLAXIS, swelling Penicillins [PENICILLINS] Allergy (Severe, Verified 10/25/24 11:40) ANAPHYLAXIS polyethylene glycol 3350 [From MIRALAX] Allergy (Severe, Verified 10/25/24 11:40) ANAPHYLAXIS sulindac [SULINDAC] Allergy (Severe, Verified 10/25/24 11:40) SWELLING senna Allergy (Intermediate, Verified 10/25/24 11:40) Unknown seafood Allergy (Verified 10/25/24 11:40) Hives Medication List - Last Reconciled 10/25/24 by Mindy Hutchinson MD albuterol sulfate 90 mcg/actuation 2 puffs inhalation Q6H PRN albuterol sulfate 2.5 mg (3 mL) inhalation Q6H PRN bisacodyl (Dulcolax (bisacodyl)) 5 mg PO BEDTIME PRN clonidine HCl 0.1 mg PO DAILY clotrimazole-betamethasone 1-0.05 % 1 appl topical BID docusate sodium (Colace) 200 mg orally daily in PM; erythromycin 1 appl ophthalmic (eye) DAILY famotidine 40 mg PO DAILY hydrocortisone 1% (Preparation H Hydrocortisone) 1 appl topical TID PRN melatonin 5 mg PO BEDTIME menthol-thymol (Absorbine Jr. Original topical liniment) 1 appl topical TID PRN multivitamin 1 tab PO DAILY oxcarbazepine (Trileptal) 600 mg PO BID polyvinyl alcohol 1.4% (Artificial Tears (polyvinyl alcohol)) 1 drp ophthalmic (eye) DAILY sumatriptan succinate 50 mg PO DAILY trazodone 150 - 300 mg PO BEDTIME PRN verapamil ER 240 mg PO DAILY 90 days Tobacco use date assessed: 10/25/24 Dental Screening Dental Screen Date: 10/25/24 Did you have a dental visit in the last 12 months?: Yes Did you have a dental problem in the last 6 months where you did not have access to dental care?: No Was dental information given to patient?: Patient has dentist HPI F/U discuss med. HPI Details - The patient is a 34 year old female presenting with follow-up for management of multiple ongoing health issues: constipation, obesity, hypertension, and an abnormal mammogram result. - Chronic constipation has been addressed with a treatment plan involving docusate daily and dulcolax as needed every three days when bowel movements do not occur naturally. - The patient's obesity is complicated by dietary non-compliance, particularly night-time snacking, sedentary lifestyle which affects weight management efforts and blood pressure control. This includes sneaking high-fat snacks and meals, contributing to increased weight and blood pressure. - Hypertension management includes medication adjustments with verapamil increase to 240 mg daily following significantly elevated blood pressure readings. Recently seen by her upholstery handler 10/11/2024, who has reinforced the importance of diet and lifestyle modifications. PENDING SALE TO [facility] Medical History (Updated 10/26/24 @ 03:50 by Mindy Hutchinson MD) Breast mass, right Morbid obesity with BMI of 40.0-44.9, adult Hypertension Annual visit for general adult medical examination with abnormal findings Heart murmur, systolic Breast pain Right Achilles tendinitis Erythema intertrigo External hemorrhoids Bleeding hemorrhoids Vitamin D deficiency Heel callus Mild intermittent asthma in adult without complication Ex-cigarette smoker Motion sickness Mild intellectual disability Porcelain gallbladder Migraine Depression with anxiety Obesity Dysmenorrhea Benign tumor of breast Prosthetic eye globe Surgical History (Updated 10/25/24 @ 12:01 by Mindy Hutchinson MD) S/P laparoscopic cholecystectomy History of cholecystectomy History of benign neoplasm of breast History of eye surgery Family History Mother Hypertension Father No problems noted. Brother No problems noted. Brother No problems noted. 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 1. Little interest or pleasure in doing things: not at all 2. Feeling down, depressed, or hopeless: not at all 3. Trouble falling or staying asleep, or sleeping too much: not at all 4. Feeling tired or having little energy: not at all 5. Poor appetite or overeating: not at all 6. Feeling bad about yourself - or that you are a failure or have let yourself or your family down: not at all 7. Trouble concentrating on things, such as reading the newspaper or watching television: not at all 8. Moving or speaking so slowly that other people could have noticed. Or the opposite - being so fidgety or restless that you have been moving around a lot more than usual: not at all 9. Thoughts that you would be better off or of hurting yourself in some way: not at all Total score: 0 Depression Screening Interpretation: Negative Depression Screening Done: Yes 69118 - PHQ-9 Billing: Yes Source: Developed by Drs. Jett Oneal, Felisa River, Raudel Correa and colleagues, with an educational geraldine from [employer]. Thrive Questionnaire Date Thrive assessed: 10/25/24 I am a: Patient What is your living situation today?: I have a steady place to live Within the past 12 months, did the food you bought not last and you didn't have the money to get more?: Never true Within the past 12 months, did you worry whether your food would run out before you got money to buy more?: Never true Do you have trouble paying for medicines?: No Do you have trouble getting transportation to medical appointments?: No Do you have trouble paying your heating and electricity bill?: No Do you have trouble taking care of your child, family member or friend?: No Do you have trouble with day-to-day activities such as bathing, preparing meals, shopping, managing finances, etc.?: No Are you currently unemployed and looking for a job?: No Are you interested in more education?: No THRIVE Score: 0 AUDIT C Alcohol Use Questionnaire (AUDIT-C) 1. How often do you have a drink containing alcohol?: Never Total Score: 0 LEYDA-7 AMB Questionnaire LEYDA-7 Date LEYDA - 7 assessed: 10/25/24 Feeling nervous, anxious, or on edge: 0 = Not at all Not being able to stop or control worryin = Not at all Worrying too much about different things: 0 = Not at all Trouble relaxin = Not at all Being so restless that it is hard to sit still: 0 = Not at all Becoming easily annoyed or irritable: 0 = Not at all Feeling afraid as if something awful might happen: 0 = Not at all Total LEYDA-7 score (0-4 normal; 5-9 mild; 10-14 moderate; 15-21 severe): 0 Source: Developed by Drs. Jett Oneal, Felisa River, Raudel Correa and colleagues, with an educational geraldine from [employer]. 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 Sullivan on 10/31/2024 Neuro Reports no additional complaints Psych Reports no additional complaints Endo Reports no additional complaints Jam/Lymph Reports no additional complaints Aller/Immun Reports no additional complaints Physical exam (Primary Care) Tobacco/Smoking Status: Tobacco use Status Tobacco use date assessed 10/25/24 10/25/24 11:20 Patient Tobacco Use Status Former Tobacco user 10/25/24 11:20 Tobacco use type Cigarette 10/25/24 11:20 e-Cigarette/Vaping Use Never Used 10/25/24 11:20 PHQ-9: PHQ-9 Score PHQ-9: Total score 0 10/25/24 12:03 Depression Screening Interpretation: Negative Thrive Assessment: Date of Thrive Assessment Date Thrive assessed 10/25/24 10/25/24 11:23 Telehealth Telehealth Telehealth Platform: [facility] Location of provider rendering services: practice address Location of patient: address on file Patient Identification confirmed using: Name, : Yes Telehealth method: video Patient verbally consented to treatment: Yes Patient verbally consented to billing insurance company: Yes Patient informed of any privacy concerns related to visit: Yes Minutes spent on Phone/Video with Pt.: 15 Coding Level of Care Code Tele Est Pt Level 4 (85370) Diagnoses Constipation, unspecified constipation type K59.00 Constipation type: unspecified constipation type Breast mass, right N63.10 Primary hypertension I10 Hypertension type: primary hypertension Morbid obesity with BMI of 40.0-44.9, adult E66.01; Z68.41 Additional Codes PHQ-9 - 39147 - PHQ-9 Billing: Yes ([id number]) LEYDA-7 Assessment Billing - LEYDA-7 Assessment Tool: LEYDA-7 Assessment 70148 ([id number]) Assessment & Plan Assessment & Plan (1) Constipation: Code(s): K59.00 - Constipation, unspecified Category: Medical Qualifiers: Constipation type: unspecified constipation type Qualified Code(s): K59.00 - Constipation, unspecified (2) Breast mass, right: Code(s): N63.10 - Unspecified lump in the right breast, unspecified quadrant Category: Medical (3) Hypertension: Code(s): I10 - Essential (primary) hypertension Category: Medical Qualifiers: Hypertension type: primary hypertension Qualified Code(s): I10 - Essential (primary) hypertension (4) Morbid obesity with BMI of 40.0-44.9, adult: Code(s): E66.01 - Morbid (severe) obesity due to excess calories; Z68.41 - Body mass index [BMI] 40.0-44.9, adult Category: Medical Plan I discussed with the patient the current management of her constipation, obesity, and hypertension and the ongoing strategies for maintaining health. We reviewed the potential contributions of diet and medication to her condition, particularly the impact of verapamil on constipation. I stressed the importance of hydration and fiber intake. Regarding obesity, I reiterated the necessity of dietary changes and minimized night-time snacking, engage in regular exercise regimen to aid with weight loss. - Continue taking docusate daily for constipation and dulcolax as directed. - Increase dietary fiber intake through fruits and vegetables. - avoid nighttime snacking and choose more nutritious food options. - Monitor and limit sodium intake for hypertension management. - Keep hydrated with water, aiming for at least four 18-ounce servings daily. - has appointment already scheduled for biopsy right breast mass on 10/31/[address] Sullivan - avoidance of frequent use of NSAIDs -right breast mass noted on mammogram and breast ultrasound, has an appointment for biopsy of mass scheduled with Dr. Sullivan on 10/31/2024. Patient was informed and verbally consented to the use of an ambient scribe for clinic note documentation during this visit. Medications: Refilled famotidine take 30 mins ac 40 mg PO DAILY 90 tabs 0RF heartburn docusate sodium (Colace) (2 x 100 mg) 200 mg orally daily in PM; 180 caps 1RF
--- OUTSIDE RECORDS SUMMARY | 2024-10-25 13:30 | XMS_ITS | Clinical Summary ---
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 Medical History Medical History Date Comments Fibroadenoma of breast DX:Fibroa denoma of breast Asthma DX:Asthma; COMME NT: well controlled GERD (gastroesophageal reflux disease) DX:GERD (gastroesophageal reflux disease) Depression with anxiety DX:Depre ssion with anxiety; COMMENT: sees therapist Family History Medical History Relation Name Comments Breast cancer Aunt 1 Relation Name Status Comments Aunt 1 Aunt 2 Brother Alive x1 twin, x1 park f Father Alive does not known Mother Alive does not know Social History Tobacco Use Types Packs/Day Years Used Date Smoking Tobacco: Former Smokeless Tobacco: Never Alcohol Use Standard Drinks/Week Comments No 0 (1 standard drink = 0.6 oz pur e alcohol) Sex and Gender Information Value Date Recorded Sex Assigned at Not on file Gender Identity Not on file Sexual Orientation Not on file Obstetrics History Plan of Treatment Health Maintenance Due Date Last Done Comments COVID-19 Vaccine (#1) 01/08/1997 Pneumococcal Vaccine: Pediatrics (0 to 5 Years) and At-Risk Patients (6 to 64 Years) (1 of 2 - PCV) 01/08/1998 DTaP,Tdap,and Td Vaccines (1 - Tdap) 01/08/2011 Hepatitis B Vaccines (1 of 3 - 19+ 3-dose series) 01/08/2011 Cervical Cancer Screening: P ap Smear 01/08/2013 HPV Vaccines (3 - Risk 3-dos e series) 03/20/2014 11/20/2013, 09/18/2013 Depression Screening 10/31/2023 HIV Screening 10/31/2023 Hepatitis C Screening 10/31/2023 Social Influencers of Health Screening 10/31/2023 Influenza Vaccine (#1) 2024 HIB Vaccines Aged Out No longer eligi ble based on patient's age to complete this topic Hepatitis A Vaccines Aged Out No long er eligible based on patient's age to complete this topic IPV Vaccines Aged Out No longer eligi ble based on patient's age to complete this topic MMR Vaccines Aged Out No longer eligi ble based on patient's age to complete this topic Meningococcal ACWY Vaccine Aged Out N o longer eligible based on patient's age to complete this topic RSV Immunization Patients Under 20 months Aged Out No longer eligible b ased on patient's age to complete this topic Varicella Vaccines Aged Out No longer eligible based on patient's age to complete this topic Care Teams Sports Psychologist Relationship Specialty Start Date End Date Fernandez Tyler MD [address] [place] [address] Drive [address] [place] [address] PCP - General Internal Medicine 03/19/14
--- OUTSIDE RECORDS SUMMARY | 2024-10-25 13:30 | XMS_ITS | Data Portability ---
Author Organization EDIE zelaya [facility] Address [address] [place] [address] Care Team Providers Care Electrician Maintenance Name Role Phone CONRAD DANTE Primary Care Provider [phone] Assessment No assessment recorded. Plan of Treatment Reminders Order Date Submit Date Provider Last Modified By Organization Details Last Modified Time Details Appointments None recorded. Lab rapid strep group A, throat 2021 022 [email or web address] 5 [facility], [address] [place] [address], [id number], 2 18:30:46 rapid flu (A+B) 2021 022 [email or web address] 5 [facility], [address] [place] [address], [id number], 2 18:30:46 rapid SARS CoV 2 Ag, QL IA, respirator y specimen 2021 022 [email or web address] 5 [facility], [address] [place] [address], [id number], 2 18:30:46 urinalysis , dipstick 2022 023 [email or web address] [facility]99[facility], [address] [place] [address], [phone], 3 20:12:31 test, urine 2022 023 [email or web address] 2099[facility], [address] [place] [address] [place], [address], 3 20:12:31 culture, urine 2022 023 [email or web address] [facility] ([place]), [address] [place] [address], [address], 3 15:51:57 urinalysis , dipstick 2022 023 [facility] [address] [place] [address], [address] [place] [address], [place], [address], 3 19:07:26 test, urine 2022 023 [email or web address] 20[facility], [address] [place] [address], [place], [address], 3 19:07:26 culture, urine 2022 023 [email or web address] [facility] ([facility], [address] [place] [address], [address], 3 19:39:46 Referral None recorded. Procedures None recorded. Surgeries None recorded. Imaging None recorded. Medication Orders acetaminop hen 325 mg tablet 2021 022 [facility]acy #[id number], [address], [place], [address], 2 18:43:07 nitrofuran toin monohydrat e/macrocry stals 100 mg capsule 2022 023 kevin [facility]/Pharmacy #[id number], [address], [place], [address], 3 18:28:08 Macrobid 100 mg capsule 2022 023 [facility]acy #[id number], [address], [place], [address], 3 19:07:28 Patient TargetsNo targets recorded. Patient Instructions Encounter Date Encounter Id Patient Instructions Last Modified By Organization Details Last Modified Time 09/20/2022 [id number] sore throat: rody pate instructions [email or web address] Not available 09/20/2022 18:30:46 Go to the [facility] emergency department if you develop ANY new or worsening symptoms. Call 911 if you feel that you are having a medical emergency. Call your primary care physician today to set up a follow up appointment within one week. Not following up with your primary care physician may result in adverse health conditions. If you have any questions or concerns, please call us. Take over the counter medications such as ibuprofen or tylenol according to package instructions. Do not exceed maximum dosage for age/weight. Do not take anything that you might be allergic to. Make sure to consult us or your primary care physician if you take medications such as blood thinners or blood pressure medications before taking over the counter medications. The best over the counter cough medication for people with high blood pressure is Coricidin, which is available at any pharmacy without a prescription. Drink plenty of water. [email or web address] Not available 09/20/2022 18:25:38 11/02/2022 [id number] urinary tract infection in women information [email or web address] Not available 11/02/2022 20:12:31 You are going to be treated for a Urinary Tract Infection. The following are recommendations to help with your symptoms and recovery: 1. Drink Plenty of fluids - Stay hydrated 2. Finish full antibiotic course 3. I recommend starting a Probiotic - I recommend Florastor 4. If you take Azo - this will help the burning and urgency feeling - just be aware it will turn your urine bright yellow. I would not hesitate to be seen again if you develop: 1. Severe Back Pain 2. Abdominal Pain 3. Nausea and Vomiting 4. Vaginal Discharge or Bleeding 5. Fever > 101.0 You symptoms should improve within 72 hours for a typically UTI. If a urine culture was sent out to the lab for you we should get the results back within 4 days. This will be able to prove that your symptoms are caused by a UTI and it will also verify that the correct antibiotic was prescribed. Thank you for using [facility] - please don't hesistate to call our office if you have any questions or concerns. [email or web address] Not available 11/02/2022 20:12:18 11/17/2022 [id number] We recommend you get a repeat urinalysis in 2 weeks to ensure that any abnormalities have resolved. If urine abnormalities persist, you will likely need further testing or treatment. We will contact you within 3 to 5 days with the results of your lab test. If you have not heard back from us within that time frame, please feel free to contact our office regarding your results. Go to the Emergency Department immediately if your symptoms worsen or if you develop new symptoms that concern you. Drink plenty of fluids You should follow-up with your PCP in 4-5 days, or at any time if your condition does not improve or worsens. Any acute change should prompt a visit to the nearest Emergency Department. [email or web address] Not available 11/17/2022 19:07:24 Reason for Referral None Reported. Results Created Date Observation Date Name Description Value Unit Range Abnormal Flag Note LastModifiedBy Organization Detail LastModifiedTime 09/20/20 22 09/20/2022 rapid SARS CoV 2 Ag, QL IA, respi rator y speci men Unknown Analyte negati ve Not Available [address], [address], 09/20/2022 17:57:52 09/20/20 22 09/20/2022 rapid strep group A, throa t Unknown Analyte negati ve Not Available [address] [place] [address], [address], 09/20/2022 17:52:10 09/20/20 22 09/20/2022 rapid flu (A+B) Unknown Analyte positi ve Not Available [address] [place] [address], [address], 09/20/2022 17:57:47 09/20/20 22 09/20/2022 rapid flu (A+B) Unknown Analyte negati ve Not Available [address] [place] [address], [address], 09/20/2022 17:57:47 11/02/19 23 11/02/2022 pregn angela test, urine Unknown Analyte Normal = Negati ve Not Available 2099leena lee [address], [place], [address], 11/02/2022 20:03:07 11/02/19 23 11/02/2022 pregn angela test, urine Unknown Analyte negati ve Not Available 2099leena lee [address], [place], [address], 11/02/2022 20:03:07 11/02/19 23 11/02/2022 urina lysis , dipst ick Unknown Analyte Normal = light yellow Not Available 2099leena lee [address], [place], [address], 11/02/2022 19:48:57 11/02/1911/02/2022 urina lysis , dipst ick Unknown Analyte Light Yellow Not Available 2099leena lee [address], [place], [address], 11/02/2022 19:48:57 11/02/19 23 11/02/2022 urina lysis , dipst ick Unknown Analyte Normal = clear Not Available leena lee [address], [place], [place], [address], 11/02/2022 19:48:57 11/02/19 23 11/02/2022 urina lysis , dipst ick Unknown Analyte Clear Not Available [address], [place], [place], [address], 11/02/2022 19:48:57 11/02/19 23 11/02/2022 urina lysis , dipst ick Unknown Analyte Normal = negati ve Not Available leena lee [address], [place], [place], [address], 11/02/2022 19:48:57 11/02/19 23 11/02/2022 urina lysis , dipst ick Unknown Analyte Negati ve Not Available 2099leena lee [address], [place], [address], 11/02/2022 19:48:57 11/02/19 23 11/02/2022 urina lysis , dipst ick Unknown Analyte Normal = Negati ve Not Available 2099leena [address], [place], [address], 11/02/2022 19:48:57 11/02/1911/02/2022 urina lysis , dipst ick Unknown Analyte Negati ve Not Available [facility] [address], [place], [address], 11/02/2022 19:48:57 11/02/19 23 11/02/2022 urina lysis , dipst ick Unknown Analyte Normal = Negati ve Not Available leena [address], [place], [address], 11/02/2022 19:48:57 11/02/1911/02/2022 urina lysis , dipst ick Unknown Analyte Negati ve Not Available leena [address], [place], [address], 11/02/2022 19:48:57 11/02/19 23 11/02/2022 urina lysis , dipst ick Unknown Analyte Normal = 1.010, 1.015, 1.020 Not Available [facility] [address], [place], [address], 11/02/2022 19:48:57 11/02/19 23 11/02/2022 urina lysis , dipst ick Unknown Analyte 1.020 Not Available [address] [place] [address] Drive, [place], [address], 11/02/2022 19:48:57 11/02/1911/02/2022 urina lysis , dipst ick Unknown Analyte Normal = Negati ve Not Available leena lee [address], [place], [address], 11/02/2022 19:48:57 11/02/19 23 11/02/2022 urina lysis , dipst ick Unknown Analyte Negati ve Not Available leena pe emem[address], [place], [address], 11/02/2022 19:48:57 11/02/1911/02/2022 urina lysis , dipst ick Unknown Analyte Normal = 6.5, 7.0, 7.5, 8.0 Not Available leena lee [address], [place], [address], 11/02/2022 19:48:57 11/02/19 23 11/02/2022 urina lysis , dipst ick Unknown Analyte 6.5 Not Available thelma [address], [place], [address], 11/02/2022 19:48:57 11/02/1911/02/2022 urina lysis , dipst ick Unknown Analyte Normal = Negati ve Not Available [facility]ena pe [facility], [place], [address], 11/02/2022 19:48:57 11/02/1911/02/2022 urina lysis , dipst ick Unknown Analyte Negati ve Not Available leena pe emem[address], [place], [address], 11/02/2022 19:48:57 02/10/21 2211/02/2022 urina lysis , dipst ick Unknown Analyte Normal = 0.2, 1.0 Not Available leena lee [address], [place], [address], 11/02/2022 19:48:57 11/02/19 23 11/02/2022 urina lysis , dipst ick Unknown Analyte 0.2 E.U./d L Not Available [facility] [address], [place], [address], 11/02/2022 19:48:57 11/02/1911/02/2022 urina lysis , dipst ick Unknown Analyte Normal = Negati ve Not Available [facility] [address], [place], [place], [address], 11/02/2022 19:48:57 11/02/1911/02/2022 urina lysis , dipst ick Unknown Analyte Negati ve Not Available leena [address], [place], [address], 11/02/2022 19:48:57 11/02/1911/02/2022 urina lysis , dipst ick Unknown Analyte Normal = Negati ve Not Available [facility] [address], [place], [address], 11/02/2022 19:48:57 11/02/1911/02/2022 urina lysis , dipst ick Unknown Analyte Negati ve Not Available [address], [place], [address], 11/02/2022 19:48:57 11/17/19 23 11/17/2022 pregn angela test, urine Unknown Analyte Normal = Negati ve Not Available [address], [place], [address], 11/17/2022 18:41:03 11/17/19 23 11/17/2022 pregn angela test, urine Unknown Analyte negati ve Not Available [facility] [address], [place], [address], 11/17/2022 18:41:03 11/17/19 23 11/17/2022 urina lysis , dipst ick Unknown Analyte Normal = light yellow Not Available [address] [place] [address], [place], [address], 11/17/2022 18:40:51 11/17/19 23 11/17/2022 urina lysis , dipst ick Unknown Analyte Normal = clear Not Available [address], [place], [address], 11/17/2022 18:40:51 11/17/19 23 11/17/2022 urina lysis , dipst ick Unknown Analyte Normal = negati ve Not Available [address], [place], [address], 11/17/2022 18:40:51 11/17/19 23 11/17/2022 urina lysis , dipst ick Unknown Analyte Normal = Negati ve Not Available [address], [place], [address], 11/17/2022 18:40:51 11/17/19 23 11/17/2022 urina lysis , dipst ick Unknown Analyte Normal = Negati ve Not Available [address], [place], [address], 11/17/2022 18:40:51 11/17/19 23 11/17/2022 urina lysis , dipst ick Unknown Analyte Normal = 1.010, 1.015, 1.020 Not Available leena lee [address], [place], [address], 11/17/2022 18:40:51 11/17/19 23 11/17/2022 urina lysis , dipst ick Unknown Analyte Normal = Negati ve Not Available [facility] lee [address], [place], [address], 11/17/2022 18:40:51 11/17/19 23 11/17/2022 urina lysis , dipst ick Unknown Analyte Normal = 6.5, 7.0, 7.5, 8.0 Not Available 2099leena lee [address], [place], [address], 11/17/2022 18:40:51 11/17/19 23 11/17/2022 urina lysis , dipst ick Unknown Analyte Normal = Negati ve Not Available [facility] [address], [place], [address], 11/17/2022 18:40:51 11/17/19 23 11/17/2022 urina lysis , dipst ick Unknown Analyte Normal = 0.2, 1.0 Not Available [facility] lee [address], [place], [address], 11/17/2022 18:40:51 11/17/19 23 11/17/2022 urina lysis , dipst ick Unknown Analyte Normal = Negati ve Not Available 2099leena lee [address], [place], [address], 11/17/2022 18:40:51 11/17/19 23 11/17/2022 urina lysis , dipst ick Unknown Analyte Normal = Negati ve Not Available [facility] lee [address], [place], [address], 11/17/2022 18:40:51 11/17/19 23 11/17/2022 urina lysis , dipst ick Unknown Analyte Yellow Not Available thelma [address], [place], [address], 11/17/2022 18:40:51 11/17/19 23 11/17/2022 urina lysis , dipst ick Unknown Analyte Clear Not Available thelma [address], [place], [address], 11/17/2022 18:40:51 11/17/19 23 11/17/2022 urina lysis , dipst ick Unknown Analyte Negati ve Not Available leena lee [address], [place], [address], 11/17/2022 18:40:51 11/17/19 23 11/17/2022 urina lysis , dipst ick Unknown Analyte Negati ve Not Available leena lee [address], [place], [address], 11/17/2022 18:40:51 11/17/19 23 11/17/2022 urina lysis , dipst ick Unknown Analyte Negati ve Not Available leena lee [address], [place], [address], 11/17/2022 18:40:51 11/17/19 23 11/17/2022 urina lysis , dipst ick Unknown Analyte 1.020 Not Available thelma [address], [place], [place], [address], 11/17/2022 18:40:51 11/17/19 23 11/17/2022 urina lysis , dipst ick Unknown Analyte Negati ve Not Available leena lee [address], [place], [place], [address], 11/17/2022 18:40:51 11/17/19 23 11/17/2022 urina lysis , dipst ick Unknown Analyte 7.0 Not Available thelma [address], [place], [address], 11/17/2022 18:40:51 11/17/19 23 11/17/2022 urina lysis , dipst ick Unknown Analyte Negati ve Not Available leena lee [address], [place], [address], 11/17/2022 18:40:51 11/17/19 23 11/17/2022 urina lysis , dipst ick Unknown Analyte 0.2 E.U./d L Not Available leena lee [address], [place], [address], 11/17/2022 18:40:51 11/17/19 23 11/17/2022 urina lysis , dipst ick Unknown Analyte Negati ve Not Available leena lee [address], [place], [address], 11/17/2022 18:40:51 11/17/19 23 11/17/2022 urina lysis , dipst ick Unknown Analyte Negati ve Not Available leena lee [address], [place], [address], 11/17/2022 18:40:51 Result Notes None recorded. Problems Name Problem SNOMED Code Status Onset Date Resolution Date Notes Provider Name and Address Organization Details Recorded Time Insomnia 903896820 Active 2021 EDIE Rivera - [facility] 17:56:19 Depressive disorder 70314024 Active 2021 JAZMIN gaspar PA - [facility] 17:56:26 Bipolar disorder 49608683 Active 2021 JAZMIN KUMAR null, PA - [facility] 2 17:56:36 Migraine 19269107 Active 2021 JAZMINUMESH BRUNOEY null, PA - [facility] 2 17:56:43 Gastroesophage al reflux disease 079591047 Active 2021 JAZMINUMESH BRUNOEY null, PA - [facility] 2 17:56:49 Asthma 331433716 Active 2021 JAZMINUMESH KUMAR null, PA - [facility] 2 17:56:57 Constipation 13466656 Active 2021 AJZMINUMESH BRUNOEY null, PA - [facility] 2 17:57:06 Problem Notes None recorded. Medical Equipment None Reported. Allergies Allergen ID Allergen Name Allergen Category Reaction Reaction Severity Criticality Documentation Date Start Date Code Code System Note Provider Name and Address Organization Details Recorded Time 59857 Miralax medicatio n Not available Not available Not available 09/20/2022 99833 5 RxNorm JAZMIN KUMAR null, PA - [facility] 2 17:54:12 12980 amoxicill in medicatio n Not available Not available Not available 09/20/2022 723 RxNorm JAZMIN KUMAR null, PA - [facility] 2 17:54:16 56374 Product containin g penicilli n and antibioti c (product) medicatio n Not available Not available Not available 09/20/2022 15624 05 SNOMED JAZMIN KUMAR null, PA - [facility] 2 17:54:22 22199 sulindac medicatio n Not available Not available Not available 09/20/2022 55548 RxNorm JAZMIN KUMAR null, PA - [facility] 2 17:54:29 21584 sennoside s, LONG-TERM medicatio n Not available Not available Not available 09/20/2022 26272 RxNorm JAZMIN KUMAR null, PA - [facility] 2 17:54:48 Medications Name Sig Start Date Stop Date Status Note LastModified by Organization Details LastModified Time Dramamine 50 mg tablet active Not Available Not Available Not Available acetaminoph en 325 mg tablet TAKE 2 TABLETS BY MOUTH EVERY 6 HOURS active Not Available Not Available No t Available albuterol sulfate 2.5 mg/3 mL (0.083 %) solution for nebulizatio n active Not Available Not Available Not Available fluconazole 150 mg tablet active Not Available Not Available Not Available famotidine 40 mg tablet active Not Available Not Available Not Available sumatriptan 50 mg tablet active Not Available Not Available Not Available omeprazole 40 mg capsule,del ayed release active Not Available Not Available Not Available ondansetron 8 mg disintegrat ing tablet active Not Available Not Available N ot Available naproxen sodium 550 mg tablet active Not Available Not Available No t Available trazodone 300 mg tablet active Not Available Not Available Not Available oxcarbazepi ne 600 mg tablet active Not Available Not Available Not Available loratadine 10 mg tablet active Not Available Not Available Not Available nicotine 7 mg/24 hr daily transdermal patch 11/02 completed Not Available Not Available Not Available Ventolin HFA 90 mcg/actuati on aerosol inhaler active Not Available Not Available Not Available topiramate 50 mg tablet active Not Available Not Available Not Available nitrofurant oin monohydrate /macrocryst als 100 mg capsule TAKE 1 CAPSULE BY MOUTH EVERY 12 HOURS DIRECTED FOR 7 DAYS active Not Available Not Available No t Available cholecalcif wing (vitamin D3) 1,250 mcg (50,000 unit) capsule active Not Available Not Available Not Available melatonin 5 mg tablet active Not Available Not Available No t Available Reguloid (psyllium husk-sucros e) 3 gram/7 gram oral powder active Not Available Not Available Not Available Daily-Shellie (with folic acid) 400 mcg tablet active Not Available Not Available N ot Available Vitals Date Recorded Body height Provider Name an d Address Organization Details Last Updated DateTime 09/20/2022 162.56 cm JAZMIN KUMAR [facility] 11/21/2021 17:53:39 Date Recorded Body mass index (BMI) Body weight Provider Name and Address Organization Details Last Updated DateTime 09/20/2022 35.9 kg/m2 32258.81 g JAZMIN KUMAR [facility] 09/20/2022 17:53:41 Date Recorded Body height Provider Name an d Address Organization Details Last Updated DateTime 11/02/2022 162.56 cm Maeve Bell PA - [facility] 11/02/2022 19:38:31 Date Recorded Body mass index (BMI) Body weight Provider Name and Address Organization Details Last Updated DateTime 11/02/2022 35.9 kg/m2 25098.81 g Maeve Bell PA - [facility] 11/02/2022 19:42:38 Date Recorded Pain severity - 0-10 verbal numeric rating [Score] - Reported Provider Name and Address Organization Details Last Updated DateTime 11/02/2022 10 Maeve Bell PA - [facility] 11/02/2022 19:42:48 Date Recorded Oxygen saturation Oxygen saturation in Arterial blood by Pulse oximetry Provider Name and Address Organization Details Last Updated DateTime 11/02/2022 99 % 99 % Maeve Bell PA - [facility] 11/02/2022 19:44:56 Date Recorded Heart rate Provider Name an d Address Organization Details Last Updated DateTime 11/02/2022 81 /min Maeve Bell PA - [facility] 11/02/2022 19:45:00 Date Recorded Respiratory rate Provider Name a nd Address Organization Details Last Updated DateTime 11/02/2022 20 /min Maeve Bell PA - [facility] 11/02/2022 19:45:02 Date Recorded Body temperature Provider Name a nd Address Organization Details Last Updated DateTime 11/02/2022 97.8 [degF] Maeve Bell PA - [facility] 11/02/2022 19:45:07 Date Recorded Body height Provider Name an d Address Organization Details Last Updated DateTime 11/17/2022 162.56 cm Maeve Bell PA - [facility] 11/17/2022 18:29:22 Date Recorded Body mass index (BMI) Body weight Provider Name and Address Organization Details Last Updated DateTime 11/17/2022 35.9 kg/m2 49251.81 g Maeve Bell PA - [facility] 11/17/2022 18:29:32 Date Recorded Pain severity Cruz-Marcus FACES pain rating scale Provider Name and Address Organization Details Last Updated DateTime 11/17/2022 5 Maeve Bell PA - [facility] 11/17/2022 18:29:42 Date Recorded Oxygen saturation Oxygen saturation in Arterial blood by Pulse oximetry Provider Name and Address Organization Details Last Updated DateTime 11/17/2022 97 % 97 % Maeve Bradenrio PA - [facility] 11/17/2022 18:39:29 Date Recorded Heart rate Provider Name an d Address Organization Details Last Updated DateTime 11/17/2022 95 /min Maevebeata Bradenrio PA - [facility] 11/17/2022 18:39:32 Date Recorded Respiratory rate Provider Name a nd Address Organization Details Last Updated DateTime 11/17/2022 18 /min Maeve Bradenrio PA - [facility] 11/17/2022 18:39:33 Date Recorded Body temperature Provider Name a nd Address Organization Details Last Updated DateTime 11/17/2022 97.9 [degF] Maeve Bell PA - [facility] 11/17/2022 18:40:24 Date Recorded Systolic blood pressure Diastolic blood pressure Provider Name and Address Organization Details Last Updated DateTime 11/02/2022 147 mm[Hg] 98 mm[Hg] Maeve Emorygwen PA - [facility] 11/02/2022 19:44:52 Date Recorded Systolic blood pressure Diastolic blood pressure Provider Name and Address Organization Details Last Updated DateTime 11/02/2022 132 mm[Hg] 84 mm[Hg] EDIE STEVE Forth[address]jo, [place], [address], PA - [facility] 11/02/2022 20:13:06 Date Recorded Systolic blood pressure Diastolic blood pressure Provider Name and Address Organization Details Last Updated DateTime 11/17/2022 143 mm[Hg] 88 mm[Hg] Maeve Williankeara PA - [facility] 11/17/2022 18:40:21 Social History Question Answer Notes LastModified by Organizat ion Details LastModified Time Tobacco Smoking Status Former Smoker JAZMIN gaspar PA - [facility] 09/20/2022 17:57:37 What Is Your Level Of Alcohol Consumption? None [email or web address] Information not available 09/20/2022 When Did You Quit Smoking? [facility] [email or web address] Information not available 09/20/2022 Do You Use Any Illicit Or Recreational Drugs? No [email or web address] Information not available 09/20/2022 Have You Recently Traveled Abroad? No [email or web address] Information not available 09/20/2022 Do You Or Have You Ever Used Any Other Forms Of Tobacco Or Nicotine? No [email or web address] Information not available 09/20/2022 Sex: Unknown Functional Status None recorded. Mental Status None recorded. Family History Relationship Description Onset Age of this Age Resolved Age Notes LastModified by Organization Details LastModified Time Father No current problems or disability [email or web address] Not available 09/20 17:57:14 Mother No current problems or disability [email or web address] Not available 09/20 17:57:14 Medical History No medical history recorded. Gynecological HistoryNo gynecological history recorded. Obstetrics History GPAL:G 0 P 0 0 0 0 Immunizations Vaccine Type Date Status Note Provider Nam e and Address Organization Details Recorded Time Influenza, split virus, quadrivalent, preservative 8 completed Maeve Monfette null, PA - [facility] 11/02/2022 19:38:42 Influenza, split virus, quadrivalent, preservative 7 completed Maeve Monfette null, PA - [facility] 11/02/2022 19:38:42 Influenza, split virus, quadrivalent, preservative 6 completed Maeve Monfette null, PA - [facility] 11/02/2022 19:38:42 COVID-19, mRNA, LNP-S, PF, 30 mcg/0.3 mL dose 1 completed Maeve Monfette null, PA - [facility] 11/02/2022 19:38:42 COVID-19, mRNA, LNP-S, PF, 30 mcg/0.3 mL dose 1 completed Maeve Monfette null, PA - [facility] 11/02/2022 19:38:42 COVID-19, mRNA, LNP-S, PF, 30 mcg/0.3 mL dose 1 completed Maeve Monfette null, PA - [facility] 11/02/2022 19:38:42 pneumococcal polysaccharide PPV23 2 completed Maeve Monfette null, PA - [facility] 11/02/2022 19:38:42 Tdap 6 completed Maeve Monfette null, PA - [facility] 11/02/2022 19:38:42 HPV, quadrivalent 4 completed Maeve Monfette null, PA - [facility] 11/02/2022 19:38:42 HPV, quadrivalent 3 completed Maeve Monfette null, PA - [facility] 11/02/2022 19:38:42 Td (adult), 5 Lf tetanus toxoid, preservative free, adsorbed 4 completed Maeve Monfette null, PA - [facility] 11/02/2022 19:38:42 Influenza, split virus, quadrivalent, PF 1 completed Maeve Monfette null, PA - [facility] 11/02/2022 19:38:42 Influenza, split virus, quadrivalent, PF 1 completed Maeve Monfette null, PA - [facility] 11/02/2022 19:38:42 Influenza, split virus, quadrivalent, PF 2 completed Maeve Monfette null, PA - [facility] 11/02/2022 19:38:42 COVID-19, mRNA, LNP-S, bivalent, PF, 30 mcg/0.3 mL dose 3 completed Maeve Monfette null, PA - [facility] 11/17/2022 18:27:16 Past Encounters Encounter ID Performer Location Encounter Start Date Encounter Closed Date Diagnosis/Indication Diagnosis SNOMED-CT Code Diagnosis ICD10 Code Diagnosis Note [id number] [address] [address] 03/01/2018 19:08:03 03/01/2018 20:09:[id number] [address] [address] 04/20/2021 11:47:11 04/20/2021 12:34:46 [id number] EDIE Robles [address] [place] [address] 09/20/2022 17:17:57 09/20/2022 18:38:19 Influenza caused by Influenza A virus 461589647 J09.X2 [id number] [address] [place] [address] 11/02/2022 19:02:21 11/02/2022 20:15:12 Dysuria 03153467 R30.0 [id number] Snaya Suárez NP [address] [place] [id number] 11/17/2022 16:39:43 11/17/2022 19:10:36 Acute urinary tract infection 210861660 N39.0 Health Concerns Section Related Observation LastModified by Organization Detai ls LastModified Time None Recorded Concern Status LastModified by Organization Details LastModified Time None Recorded Advance Directives Directive None Recorded Payers Encounter Date Sequence Insurance Name Policy Number Policy Tavarez Covered Member ID Tavarez Member ID Guarantor Name 03/01/2018 1 [facility] NET PLAN (MEDICAID HMO) MARY JANE Cartwright [id number] [employer] Caregiver 04/20/2021 1 [facility] NET PLAN (MEDICAID HMO) MARY JANE Cartwright [id number] Lidesperanza Caregiver 09/20/2022 1 [facility] NET PLAN (MEDICAID HMO) MARY JANE Cartwright [id number] Lidsundayy Caregiver 11/02/2022 1 [facility] NET PLAN (MEDICAID HMO) MARY JANE Cartwright [id number] Lidsundayy Caregiver 11/17/2022 1 [facility] NET PLAN (MEDICAID HMO) MARY JANE Cartwright [id number] Lidsundayy Caregiver Notes Date Note Type Note Provider Name and Address Organization Details Recorded Time 2 text/html Sore throatReported bypatient.Notes:Pt and caregiver report cough, sore throat, congestion, fatigue x 3-4 days. Taking OTC naproxen and using albuterol as previously prescribed. Denies fever, SOB, wheezing currently. EDIE Robles [address] [place], [phone], [facility] 09/20/2022 18:43:28 3 text/html Urinary Complaint FemaleReported bypatient.source of patient informationInformation obtained from patient; Patient arrived at Urgent Care ambulatory UTI Symptoms:no blood in the urine; no pain during urination; no vaginal discharge; no urgency; no pain in the flank; no fever/chills; no incontinence; no recurrent UTI;urinary frequency;abdominal pain;known exposure to STD Severity:mild Duration:2 days Modifying Factors:nothing gives reliefNotes:frequency and urgency x 2 day. denies any fever or fever with chills, denies any History of renal stone or bladder issues. frequency and urgency x 1 day. denies any fever or fever with chills, denies any History of renal stone or bladder issues. Sanya Suárez NP [address] [place], [phone], [facility] 11/17/2022 19:08:05 OBGyn Episode No OBEpisode recorded.
== END 2024-10-25 12:48 | disposition home or self-care (01) ==
LOC: HO.HMCC 11:23
PROVIDERS: PCP Internal Medicine; Visit Provider Internal Medicine
DX: K59.00 Constipation, unspecified (principal); N63.10 Unspecified lump in the right breast, unspecified quadrant; I10 Essential (primary) hypertension; E66.01 Morbid (severe) obesity due to excess calories; Z68.41 Body mass index [BMI] 40.0-44.9, adult

== ENCOUNTER → 2024-10-25 11:23 | Outpatient (BNVA) | payer OTHER, SELFPAY | PROVIDERS: PCP Internal Medicine; Visit Provider Internal Medicine | DX: K59.00 Constipation, unspecified (principal); N63.10 Unspecified lump in the right breast, unspecified quadrant; I10 Essential (primary) hypertension; E66.01 Morbid (severe) obesity due to excess calories; Z68.41 Body mass index [BMI] 40.0-44.9, adult; Z71.3 Dietary counseling and surveillance | CPT/HCPCS: 96127 ==

== ENCOUNTER 2024-10-31 08:15 | Outpatient (AMB) | payer OTHER, SELFPAY ==
--- NOTE | 2024-10-31 08:26 | MHC.OFFVIS ---
Vital Signs 10/31/24 08:35 Height 5 ft 3 in Weight 229 lb BMI 40.6 BP 177/86 H Blood Pressure Location Rt brachial Position Sitting Pulse 88 Intake Visit Reasons: (R) breast US Bx 11:00 mass Intake Note: Patient is seen in office for ultrasound biopsy consult, right breast 11 o'clock mass. Pt c/o: rt breast tenderness. Denies nipple discharge. Maternal aunt from breast CA. Bx Sched:11/14/24 us & mm:10/21/24 Manager Photo Required: No Accompanied by: living provider Ria Allergies amoxicillin [AMOXICILLIN] Allergy (Severe, Verified 10/31/24 08:33) ANAPHYLAXIS, swelling Penicillins [PENICILLINS] Allergy (Severe, Verified 10/31/24 08:33) ANAPHYLAXIS polyethylene glycol 3350 [From MIRALAX] Allergy (Severe, Verified 10/31/24 08:33) ANAPHYLAXIS sulindac [SULINDAC] Allergy (Severe, Verified 10/31/24 08:33) SWELLING senna Allergy (Intermediate, Verified 10/31/24 08:33) Unknown seafood Allergy (Verified 10/31/24 08:33) Hives Medication List - Last Reconciled 10/31/24 by Devan Sullivan MD albuterol sulfate 90 mcg/actuation 2 puffs inhalation Q6H PRN albuterol sulfate 2.5 mg (3 mL) inhalation Q6H PRN bisacodyl (Dulcolax (bisacodyl)) 5 mg PO BEDTIME PRN clonidine HCl 0.1 mg PO DAILY clotrimazole-betamethasone 1-0.05 % 1 appl topical BID docusate sodium (Colace) 200 mg orally daily in PM; erythromycin 1 appl ophthalmic (eye) DAILY famotidine 40 mg PO DAILY hydrocortisone 1% (Preparation H Hydrocortisone) 1 appl topical TID PRN melatonin 5 mg PO BEDTIME menthol-thymol (Absorbine Jr. Original topical liniment) 1 appl topical TID PRN multivitamin 1 tab PO DAILY oxcarbazepine (Trileptal) 600 mg PO BID polyvinyl alcohol 1.4% (Artificial Tears (polyvinyl alcohol)) 1 drp ophthalmic (eye) DAILY sumatriptan succinate 50 mg PO DAILY trazodone 150 - 300 mg PO BEDTIME PRN verapamil ER 240 mg PO DAILY 90 days HPI Comments Details: 34-year-old female patient presenting with a recent mammogram and ultrasound which revealed a density in the right breast felt to be suspicious. [facility]. She reports a previous history of a right breast biopsy approximately 7 years performed at [facility]. This apparently was benign. Recently she has been experiencing pain in the breast especially in the lower quadrants. She denied any palpable mass and denies any symptoms on the left breast. Her family history is significant only for a maternal aunt with breast cancer. She does not have much information regarding the remainder of her family. She is premenopausal and apparently had 1 which was terminated at the age of 19. Her last menstrual period was on 10/20/2024. She denies any previous genetic testing. [facility] Medical History Breast mass, right Morbid obesity with BMI of 40.0-44.9, adult Hypertension Annual visit for general adult medical examination with abnormal findings Heart murmur, systolic Breast pain Right Achilles tendinitis Erythema intertrigo External hemorrhoids Bleeding hemorrhoids Vitamin D deficiency Heel callus Mild intermittent asthma in adult without complication Ex-cigarette smoker Motion sickness Mild intellectual disability Porcelain gallbladder Migraine Depression with anxiety Obesity Dysmenorrhea 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 Brother No problems noted. Brother No problems noted. 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 Cognitive needs: No Hearing needs: No Vision needs: Yes Female Reproductive History Menstrual Age of Menarche: 13 Review of Systems Const All systems reviewed & are unremarkable except as noted in HPI and below Denies chills, Denies fever(s), Denies headache(s), Denies poor appetite and Denies weakness ENT Denies headache(s) Card Denies chest pain, Denies irregular heart rhythm, Denies palpitations and Denies dyspnea Resp Denies cough, Denies excessive phlegm production and Denies dyspnea GI Denies abdominal pain, Denies bloating, Denies change in bowel habits, Denies constipation, Denies heartburn, Denies diarrhea, Denies nausea and Denies vomiting Denies urinary frequency Musc Denies back pain, Denies muscle weakness and Denies numbness Skin/Breast Denies changing lesions and Denies unusual bruising Neuro Denies headache(s), Denies numbness, Denies paresthesias and Denies weakness Psych Denies anxiety and Denies depression Endo Denies palpitations Jam/Lymph Denies lymphadenopathy Physical Exam Vital Signs: Last Vital Signs Pulse 88 10/31/24 08:35 BP 177/86 H 10/31/24 08:35 BMI result Body Mass Index 40.6 Const General: cooperative and no acute distress Nutritional Appearance: well nourished Orientation/consciousness: patient oriented x3 Limitations: no limitations HEENT Head: Yes normocephalic and Yes atraumatic Ears: hearing grossly normal bilaterally Chest Other: Left breast: No skin change, no nipple retraction, no nipple discharge, no palpable mass, no enlarged lymph nodes. Right breast: No skin change, no nipple retraction, no nipple discharge, no palpable mass throughout the breast but no definite 06:00 o'clock mass, no enlarged lymph nodes Chest/axillae images: 1. Well-healed periareolar incision as marked Resp Effort & Inspection: normal respiratory effort, no audible wheezes, no cough and no respiratory distress Cardio Jugular venous distension: no JVD GI Inspection: Yes normal to inspection Skin Other: Warm, dry, no rash Neuro General: patient oriented x3 Extrem General: Yes no clubbing, cyanosis or edema Assessment & Plan Assessment & Plan (1) Breast mass, right: Code(s): N63.10 - Unspecified lump in the right breast, unspecified quadrant Category: Medical Qualifiers: Breast mass location: lower outer quadrant Qualified Code(s): N63.13 - Unspecified lump in the right breast, lower outer quadrant (2) Abnormal ultrasound of breast: Code(s): R92.8 - Other abnormal and inconclusive findings on diagnostic imaging of breast Category: Medical Plan 34-year-old female patient presenting with a recent mammogram and ultrasound which revealed a density in the right breast at the 06:00 o'clock location. No definite palpable masses appreciated in this area. She is scheduled for an ultrasound-guided core biopsy at the [facility] on 11/14/2024. I recommended follow-up examination 1 week to review the results of the biopsy. She expressed understanding and agrees with the plan. Orders: Orders US breast ndl core biopsy RT Today N63.10 - Unspecified lump in the right breast, unspecified quadrant, R92.8 - Other abnormal and inconclusive findings on diagnostic imaging of breast Coding Level of Care Code New Pt Level 4 (19409) Diagnoses Mass of lower outer quadrant of right breast N63.13 Breast mass location: lower outer quadrant Abnormal ultrasound of breast R92.8
[2024-10-31 08:35] VITALS: BP 177/86; PULSE 88; BMI 40.6
--- OUTSIDE RECORDS SUMMARY | 2024-10-31 11:08 | XMS_ITS | Clinical Summary ---
Author Organization [employer] it Address [address] [place] [address] Care Team Providers Care Billing And Accounting Staff Assistant Name Role Phone Fernandez Tyler MD Primary Care Provider [phone] Surgical History Surgery Date Site/Laterality Comments BREAST [...] age to complete this topic Care Teams Billing And Accounting Staff Assistant Relationship Specialty Start Date End Date Fernandez Tyler MD [address] [place] [address] Drive [address] [place] [address] PCP - General Internal Medicine 03/19/14
--- OUTSIDE RECORDS SUMMARY | 2024-10-31 11:08 | XMS_ITS | Data Portability ---
Author Organization EDIE zelaya [facility] Address [address] [place] [address] Care Team Providers Care Tours Captain Name Role Phone CONRAD DANTE Primary Care Provider Assessment No assessment recorded. Plan of Treatment Reminders Order Date Submit Date Provider Last Modified By Organization Details Last Modified Time Details Appointments None recorded. Lab rapid strep group A, throat 2021 022 [email or web address] 5 _[facility], [address] [place] [address], [phone], 2 18:30:46 rapid flu (A+B) 2021 022 [email or web address] 5 _[facility], [address] [place] [address], [address], 2 18:30:46 rapid SARS CoV 2 Ag, QL IA, respirator y specimen 2021 022 [email or web address] 5 _[facility], [address] [place] [address], [address], 2 18:30:46 urinalysis , dipstick 2022 023 [email or web address] 2099[facility], [address] [place] [address], [address], 3 20:12:31 test, urine 2022 023 2099_[facility], [address] [place] [address] [place], [address], 3 20:12:31 culture, urine 2022 023 [email or web address] [facility] ([place]), [address] [place] [address], [address], 3 15:51:57 urinalysis , dipstick 2022 023 [email or web address] [address] [place] [address], [address] [place] [address], [place], [address], 3 19:07:26 test, urine 2022 023 [email or web address] 20995_[facility], [address] [place] [address], [place], [address], 3 19:07:26 culture, urine 2022 023 [email or web address] [facility] ([facility], [address] [place] [address], [address], 3 19:39:46 Referral None recorded. Procedures None recorded. Surgeries None recorded. Imaging None recorded. Medication Orders acetaminop hen 325 mg tablet 2021 022 [facility]/Pharmacy #[id number], [address] [facility], [place], [address], 2 18:43:07 nitrofuran toin monohydrat e/macrocry stals 100 mg capsule 2022 023 kevin [facility]/Pharmacy #2339, [address], [place], [address], 3 18:28:08 Macrobid 100 mg capsule 2022 023 [facility]/Pharmacy #2339, [address] [facility], [place], [address], 3 19:07:28 Patient TargetsNo targets recorded. Patient Instructions Encounter Date Encounter Id Patient Instructions Last Modified By Organization Details Last Modified Time 09/20/2022 [id number] sore throat: rody pate instructions Not available 09/20/2022 18:30:46 Go to the [facility] emergency department if you develop ANY [...] without a prescription. Drink plenty of water. [email or web address] Not available 09/20/2022 18:25:38 11/02/2022 [id number] urinary tract infection in women information [email or web address] Not available 11/02/2022 20:12:31 You are going [...] antibiotic was prescribed. Thank you for using [employer] - please don't hesistate to call our office if you have any questions or concerns. [email or web address] Not available 11/02/2022 20:12:18 11/17/2022 [id number] We recommend you get a repeat urinalysis [...] men Unknown Analyte negati ve Not Available [address], [address], 09/20/2022 17:57:52 09/20/20 22 09/20/2022 rapid strep group A, throa t Unknown Analyte negati ve Not Available [address] [place] [address], [address], 09/20/2022 17:52:10 09/20/20 22 09/20/2022 rapid flu (A+B) Unknown Analyte positi ve Not Available [address] [place] [address], [address], 09/20/2022 17:57:47 09/20/20 22 09/20/2022 rapid flu (A+B) Unknown Analyte negati ve Not Available [address] [place] [address], [address], 09/20/2022 17:57:47 11/02/19 23 11/02/2022 pregn angela test, urine Unknown Analyte Normal = Negati ve Not Available 2099leena lee [address], [place], [address], 11/02/2022 20:03:07 11/02/19 23 11/02/2022 pregn angela test, urine Unknown Analyte negati ve Not Available 2099leena lee [address], [place], [address], 11/02/2022 20:03:07 11/02/19 23 11/02/2022 urina lysis , dipst ick Unknown Analyte Normal = light yellow Not Available 2099leena lee [address], [place], [address], 11/02/2022 19:48:57 11/02/1911/02/2022 urina lysis , dipst ick Unknown Analyte Light Yellow Not Available 2099leena lee [address], [place], [address], 11/02/2022 19:48:57 11/02/19 23 11/02/2022 urina lysis , dipst ick Unknown Analyte Normal = clear Not Available leena lee [address], [place], [place], [address], 11/02/2022 19:48:57 11/02/19 23 11/02/2022 urina lysis , dipst ick Unknown Analyte Clear Not Available [address], [place], [place], [address], 11/02/2022 19:48:57 11/02/19 23 11/02/2022 urina lysis , dipst ick Unknown Analyte Normal = negati ve Not Available leena lee [address], [place], [place], [address], 11/02/2022 19:48:57 11/02/19 23 11/02/2022 urina lysis , dipst ick Unknown Analyte Negati ve Not Available 2099leena lee [address], [place], [address], 11/02/2022 19:48:57 11/02/19 23 11/02/2022 urina lysis , dipst ick Unknown Analyte Normal = Negati ve Not Available 2099leena [address], [place], [address], 11/02/2022 19:48:57 11/02/1911/02/2022 urina lysis , dipst ick Unknown Analyte Negati ve Not Available [facility] [address], [place], [address], 11/02/2022 19:48:57 11/02/19 23 11/02/2022 urina lysis , dipst ick Unknown Analyte Normal = Negati ve Not Available leena [address], [place], [address], 11/02/2022 19:48:57 11/02/1911/02/2022 urina lysis , dipst ick Unknown Analyte Negati ve Not Available leena [address], [place], [address], 11/02/2022 19:48:57 11/02/19 23 11/02/2022 urina lysis , dipst ick Unknown Analyte Normal = 1.010, 1.015, 1.020 Not [facility] [address], [place], [address], 11/02/2022 19:48:57 11/02/19 23 11/02/2022 urina lysis , dipst ick Unknown Analyte 1.020 Not Available [address] [place] [address] Drive, [place], [address], 11/02/2022 19:48:57 11/02/1911/02/2022 urina lysis , dipst ick Unknown Analyte Normal = Negati ve Not Available leena lee [address], [place], [address], 11/02/2022 19:48:57 11/02/19 23 11/02/2022 urina lysis , dipst ick Unknown Analyte Negati ve Not Available leena pe emem[address], [place], [address], 11/02/2022 19:48:57 11/02/1911/02/2022 urina lysis , dipst ick Unknown Analyte Normal = 6.5, 7.0, 7.5, 8.0 Not Available leena lee [address], [place], [address], 11/02/2022 19:48:57 11/02/19 23 11/02/2022 urina lysis , dipst ick Unknown Analyte 6.5 Not Available thelma [address], [place], [address], 11/02/2022 19:48:57 11/02/1911/02/2022 urina lysis , dipst ick Unknown Analyte Normal = Negati ve Not Available [facility]ena pe [facility], [place], [address], 11/02/2022 19:48:57 11/02/1911/02/2022 urina lysis , dipst ick Unknown Analyte Negati ve Not Available leena pe em[address], [place], [address], 11/02/2022 19:48:57 02/10/21 2211/02/2022 urina lysis , dipst ick Unknown Analyte Normal = 0.2, 1.0 Not Available leena lee [address], [place], [address], 11/02/2022 19:48:57 11/02/19 23 11/02/2022 urina lysis , dipst ick Unknown Analyte 0.2 E.U./d L Not Available [facility] [address], [place], [address], 11/02/2022 19:48:57 11/02/1911/02/2022 urina lysis , dipst ick Unknown Analyte Normal = Negati ve Not Available [facility] [address], [place], [place], [address], 11/02/2022 19:48:57 11/02/1911/02/2022 urina lysis , dipst ick Unknown Analyte Negati ve Not Available leena [address], [place], [address], 11/02/2022 19:48:57 11/02/1911/02/2022 urina lysis , dipst ick Unknown Analyte Normal = Negati ve Not Available [facility] [address], [place], [address], 11/02/2022 19:48:57 11/02/1911/02/2022 urina lysis , dipst ick Unknown Analyte Negati ve Not Available [address], [place], [address], 11/02/2022 19:48:57 11/17/19 23 11/17/2022 pregn angela test, urine Unknown Analyte Normal = Negati ve Not Available [address], [place], [address], 11/17/2022 18:41:03 11/17/19 23 11/17/2022 pregn angela test, urine Unknown Analyte negati ve Not Available [facility] [address], [place], [address], 11/17/2022 18:41:03 11/17/19 23 11/17/2022 urina lysis , dipst ick Unknown Analyte Normal = light yellow Not Available [address] [place] [address], [place], [address], 11/17/2022 18:40:51 11/17/19 23 11/17/2022 urina lysis , dipst ick Unknown Analyte Normal = clear Not Available [address], [place], [address], 11/17/2022 18:40:51 11/17/19 23 11/17/2022 urina lysis , dipst ick Unknown Analyte Normal = negati ve Not Available [address], [place], [address], 11/17/2022 18:40:51 11/17/19 23 11/17/2022 urina lysis , dipst ick Unknown Analyte Normal = Negati ve Not Available [address], [place], [address], 11/17/2022 18:40:51 11/17/19 23 11/17/2022 urina lysis , dipst ick Unknown Analyte Normal = Negati ve Not Available [address], [place], [address], 11/17/2022 18:40:51 11/17/19 23 11/17/2022 urina lysis , dipst ick Unknown Analyte Normal = 1.010, 1.015, 1.020 Not Available leena lee [address], [place], [address], 11/17/2022 18:40:51 11/17/19 23 11/17/2022 urina lysis , dipst ick Unknown Analyte Normal = Negati ve Not Available [facility] [address], [place], [address], 11/17/2022 18:40:51 11/17/19 23 11/17/2022 urina lysis , dipst ick Unknown Analyte Normal = 6.5, 7.0, 7.5, 8.0 Not Available 2099leena lee [address], [place], [address], 11/17/2022 18:40:51 11/17/19 23 11/17/2022 urina lysis , dipst ick Unknown Analyte Normal = Negati ve Not Available [facility] [address], [place], [address], 11/17/2022 18:40:51 11/17/19 23 11/17/2022 urina lysis , dipst ick Unknown Analyte Normal = 0.2, 1.0 Not Available [facility] [address], [place], [address], 11/17/2022 18:40:51 11/17/19 23 11/17/2022 urina lysis , dipst ick Unknown Analyte Normal = Negati ve Not Available 2099leena lee [address], [place], [address], 11/17/2022 18:40:51 11/17/19 23 11/17/2022 urina lysis , dipst ick Unknown Analyte Normal = Negati ve Not Available [facility] [address], [place], [address], 11/17/2022 18:40:51 11/17/19 23 11/17/2022 urina lysis , dipst ick Unknown Analyte Yellow Not Available thelma [address], [place], [address], 11/17/2022 18:40:51 11/17/19 23 11/17/2022 urina lysis , dipst ick Unknown Analyte Clear Not Available thelma [address], [place], [address], 11/17/2022 18:40:51 11/17/19 23 11/17/2022 urina lysis , dipst ick Unknown Analyte Negati ve Not Available leena lee [address], [place], [address], 11/17/2022 18:40:51 11/17/19 23 11/17/2022 urina lysis , dipst ick Unknown Analyte Negati ve Not Available leena lee [address], [place], [address], 11/17/2022 18:40:51 11/17/19 23 11/17/2022 urina lysis , dipst ick Unknown Analyte Negati ve Not Available leena lee [address], [place], [address], 11/17/2022 18:40:51 11/17/19 23 11/17/2022 urina lysis , dipst ick Unknown Analyte 1.020 Not Available thelma [address], [place], [place], [address], 11/17/2022 18:40:51 11/17/19 23 11/17/2022 urina lysis , dipst ick Unknown Analyte Negati ve Not Available leena lee [address], [place], [place], [address], 11/17/2022 18:40:51 11/17/19 23 11/17/2022 urina lysis , dipst ick Unknown Analyte 7.0 Not Available thelma [address], [place], [address], 11/17/2022 18:40:51 11/17/19 23 11/17/2022 urina lysis , dipst ick Unknown Analyte Negati ve Not Available leena lee [address], [place], [address], 11/17/2022 18:40:51 11/17/19 23 11/17/2022 urina lysis , dipst ick Unknown Analyte 0.2 E.U./d L Not Available leena lee [address], [place], [address], 11/17/2022 18:40:51 11/17/19 23 11/17/2022 urina lysis , dipst ick Unknown Analyte Negati ve Not Available leena lee [address], [place], [address], 11/17/2022 18:40:51 11/17/19 23 11/17/2022 urina lysis , dipst ick Unknown Analyte Negati ve Not Available leena lee [address], [place], [address], 11/17/2022 18:40:51 Result Notes None recorded. Problems Name Problem SNOMED Code Status Onset Date Resolution Date Notes Provider Name and Address Organization Details Recorded Time Insomnia 508711321 Active 2021 EDIE Rivera - [facility] 17:56:19 Depressive disorder 76690529 Active 2021 JAZMIN gaspar PA - [facility] 17:56:26 Bipolar disorder 18626047 Active 2021 JAZMIN KUMAR null, PA - [facility] 2 17:56:36 Migraine 03069177 Active 2021 JAZMINUMESH BRUNOEY null, PA - [facility] 2 17:56:43 Gastroesophage al reflux disease 783989233 Active 2021 JAZMINUMESH BRUNOEY null, PA - [facility] 2 17:56:49 Asthma 428831201 Active 2021 JAZMINUMESH KUMAR null, PA - [facility] 2 17:56:57 Constipation 75396917 Active 2021 JAZMINUMESH BRUNOEY null, PA - [facility] 2 17:57:06 Problem Notes None recorded. Medical Equipment None Reported. Allergies Allergen ID Allergen Name Allergen Category Reaction Reaction Severity Criticality Documentation Date Start Date Code Code System Note Provider Name and Address Organization Details Recorded Time 32719 Miralax medicatio n Not available Not available Not available 09/20/2022 42476 5 RxNorm JAZMIN KUMAR null, PA - [facility] 2 17:54:12 26729 amoxicill in medicatio n Not available Not available Not available 09/20/2022 723 RxNorm JAZMIN KUMAR null, PA - [facility] 2 17:54:16 34376 Product containin g penicilli n and antibioti c (product) medicatio n Not available Not available Not available 09/20/2022 58331 05 SNOMED JAZMIN KUMAR null, PA - [facility] 2 17:54:22 17974 sulindac medicatio n Not available Not available Not available 09/20/2022 86757 RxNorm JAZMIN KUMAR null, PA - [facility] 2 17:54:29 42735 sennoside s, LONGTERM medicatio n Not available Not available Not available 09/20/2022 20981 RxNorm JAZMIN KUMAR null, PA - [facility] [...] Updated DateTime 09/20/2022 162.56 cm JAZMIN KUMAR [facility] 1 11/21/2021 17:53:39 Date Recorded Body mass index (BMI) Body weight Provider Name and Address Organization Details Last Updated DateTime 09/20/2022 35.9 kg/m2 28341.81 g JAZMIN KUMAR [facility] 09/20/2022 17:53:41 Date Recorded Body height Provider Name an d Address Organization Details Last Updated DateTime 11/02/2022 162.56 cm Maeve Bell PA - [facility] 11/02/2022 19:38:31 Date Recorded Body mass index (BMI) Body weight Provider Name and Address Organization Details Last Updated DateTime 11/02/2022 35.9 kg/m2 91071.81 g Maeve Bell PA - [facility] [...] Details Last Updated DateTime 11/17/2022 35.9 kg/m2 34512.81 g Maeve Bell PA - [facility] [...] mm[Hg] 84 mm[Hg] EDIE STEVE [address], [place], [address], PA - [facility] 11/02/2022 20:13:06 Date [...] Is Your Level Of Alcohol Consumption? None [email or web address] Information not available 09/20/2022 When Did You Quit Smoking? [facility] Information not available 09/20/2022 Do You Use Any Illicit Or Recreational Drugs? No Information not available 09/20/2022 Have You Recently Traveled Abroad? No [email or web address] Information not available 09/20/2022 Do You Or Have You Ever Used Any Other Forms Of Tobacco Or Nicotine? No Information not available 09/20/2022 Sex: Unknown Functional Status None recorded. Mental Status None recorded. Family History Relationship Description Onset Age of this Age Resolved Age Notes LastModified by Organization Details LastModified Time Father No current problems or disability [email or web address] Not available 09/20 17:57:14 Mother No current problems or disability [email or web address] Not available 09/20 17:57:14 Medical History No [...] SNOMED-CT Code Diagnosis ICD10 Code Diagnosis Note [id number] [address] [address] 03/01/2018 19:08:03 03/01/2018 20:09:30 [id number] [address] [address] 04/20/2021 11:47:11 04/20/2021 12:34:46 [id number] EDIE Robles [address] [place] [address] 09/20/2022 17:17:57 09/20/2022 18:38:19 Influenza caused by Influenza A virus 665215913 J09.X2 [id number] [address] [place] [address] 11/02/2022 19:02:21 11/02/2022 20:15:12 Dysuria 46505176 R30.0 [id number] Sanya Suárez NP [address] [place] [address] 11/17/2022 16:39:43 11/17/2022 19:10:36 Acute urinary tract infection 012504015 N39.0 Health Concerns Section Related Observation LastModified by Organization Detai ls LastModified Time None Recorded Concern Status LastModified by Organization Details LastModified Time None Recorded Advance Directives Directive None Recorded Payers Encounter Date Sequence Insurance Name Policy Number Policy Tavaerz Covered Member ID Tavarez Member ID Guarantor Name 03/01/2018 1 [facility] [employer] (MEDICAID HMO) MARY JANE Cartwright [id number] Lidsundayy Caregiver 04/20/2021 1 [facility] [employer] (MEDICAID HMO) MARY JANE Cartwright [id number] Lidesperanza Caregiver 09/20/2022 1 [facility] [employer] (MEDICAID HMO) MARY JANE Cartwright [id number] Lidsundayy Caregiver 11/02/2022 1 [facility] [employer] (MEDICAID HMO) MARY JANE Cartwright [id number] Lidsundayy Caregiver 11/17/2022 1 [facility] [employer] (MEDICAID HMO) MARY JANE Cartwright [id number] Lidsundayy Caregiver Notes Date Note Type Note Provider Name and Address Organization Details Recorded Time 2 text/html Sore throatReported bypatient.Notes:Pt and caregiver report cough, sore throat, congestion, fatigue x 3-4 days. Taking OTC naproxen and using albuterol as previously prescribed. Denies fever, SOB, wheezing currently. EDIE Robles [address] [place], [address], [facility] 09/20/2022 18:43:28 3 text/html Urinary Complaint [...] Suárez NP [address] [place], [address], [facility] 11/17/2022 19:08:05 OBGyn Episode No OBEpisode recorded.
== END 2024-10-31 08:56 | disposition home or self-care (01) ==
PROVIDERS: PCP Internal Medicine; Visit Provider Surgery
DX: N63.13 Unspecified lump in the right breast, lower outer quadrant (principal); R92.8 Other abnormal and inconclusive findings on diagnostic imaging of breast
CPT/HCPCS: 99204

== ENCOUNTER → 2024-10-31 08:15 | Outpatient (BNVA) | payer OTHER, SELFPAY | PROVIDERS: PCP Internal Medicine; Visit Provider Surgery | DX: N63.13 Unspecified lump in the right breast, lower outer quadrant (principal); R92.8 Other abnormal and inconclusive findings on diagnostic imaging of breast | CPT/HCPCS: 99202 ==

== ENCOUNTER 2024-11-14 08:44 | Outpatient (REF) | payer OTHER, SELFPAY ==
--- NOTE | ~2024-11-14 | MM_ITS ---
PROCEDURE: ULTRASOUND-GUIDED RIGHT BREAST BIOPSY CLINICAL INFORMATION: Right breast mass at 11:00. COMPARISON: Comparison is made with available prior examinations. TECHNIQUE: The details of the procedure, as well as the risks, benefits, and alternatives to the procedure were explained to the patient in detail and all of her questions were answered, after which, written informed consent was obtained. PROCEDURE: Prior to the procedure, sonography revealed a solid mass in the right breast 11:00 1 cm from the nipple. A time-out was performed, the lesion intended for biopsy was targeted and the skin of the right breast was then prepped and draped in the usual sterile fashion. Using sonographic guidance, sterile technique, and 1% lidocaine without epinephrine for local anesthesia, a total of 5 cores were obtained through the targeted area with a 14-gauge biopsy device. At the completion of tissue sampling, a single butterfly metallic clip was deposited at the biopsy site. An appropriate sample was obtained. The postprocedure 2-view direct digital mammogram reveals satisfactory positioning of the biopsy clip. The patient tolerated the procedure well and, after assuring adequate hemostasis, was discharged in good condition after reviewing postbiopsy breast care instructions. Final pathology results are pending. MM/MM tomosynthesis diagnostic RT IMPRESSION: 1. Uncomplicated sonographically-guided core biopsy of the right breast. The 2-view direct digital postprocedure mammogram reveals satisfactory positioning of the biopsy clip. 2. Final pathology results are pending. A separate report with final recommendations will be issued once these results are made available. Electronically signed by: Suze Dillon DO 11/14/2024 10:01 AM MEÑO
--- OUTSIDE RECORDS SUMMARY | 2024-11-14 08:50 | XMS_ITS | Data Portability ---
Author Organization [facility]IE [facility] Address [address] [place] [address] Care Team Providers Care Heel Sander Name Role Phone DANTE MARTINES Primary Care Provider Assessment No assessment recorded. Plan of Treatment Reminders Order Date Submit Date Provider Last Modified By Organization Details Last Modified Time Details Appointments None recorded. Lab urinalysis , dipstick 2022 023 [email or web address] [facility], [address] [place] [address], [address], 3 19:07:26 test, urine 2022 023 [email or web address] [facility], [address] [place] [address], [address], 3 19:07:26 culture, urine 2022 023 [email or web address] [facility], [address] [place] [address], [place], [address], 3 19:39:46 urinalysis , dipstick 2022 023 [email or web address] [facility], [address] [place] [address], [address], 3 20:12:31 test, urine 2022 023 [email or web address] [facility], [address] [place] [address], [address], 3 20:12:31 culture, urine 2022 023 [email or web address] [email or web address] [facility] ([facility], [address] [place] [address], [place], [address], 3 15:51:57 rapid strep group A, throat 2021 022 [email or web address] 5 _[facility], [address] [place] [address], [address], 2 18:30:46 rapid flu (A+B) 2021 022 [email or web address] 5 _[facility], [address] [place] [address], [place], [address], 2 18:30:46 rapid SARS CoV 2 Ag, QL IA, respirator y specimen 2021 022 [email or web address] 5 _[facility], [address] [place] [address], [place], [address], 2 18:30:46 Referral None recorded. Procedures None recorded. Surgeries None recorded. Imaging None recorded. Medication Orders Macrobid [address] [id number], [address] [facility], [place], [address], 3 19:07:28 nitrofuran toin monohydrat e/macrocry stals 100 mg capsule 2022 023 kevin [facility][id number], [address] [facility], [place], [address], 3 18:28:08 acetaminop hen 325 mg tablet [address] [id number], [address] [facility], [place], [address], 2 18:43:07 Patient TargetsNo targets recorded. Patient Instructions Encounter Date Encounter Id Patient Instructions Last Modified By Organization Details Last Modified Time 09/20/2022 [id number] sore throat: rody pate instructions [email or web address] Not available 09/20/2022 18:30:46 Go to the [facility] emergency department if you develop ANY [...] without a prescription. Drink plenty of water. [email or web address] Not available 09/20/2022 18:25:38 11/02/2022 [id number] urinary tract infection in women information Not available 11/02/2022 20:12:31 You are going [...] antibiotic was prescribed. Thank you for using [facility] - please don't hesistate to call our office if you have any questions or concerns. [email or web address] Not available 11/02/2022 20:12:18 11/17/2022 [id number] We recommend you get a repeat urinalysis [...] men Unknown Analyte negati ve Not Available [address], [address], 09/20/2022 17:57:52 09/20/20 22 09/20/2022 rapid strep group A, throa t Unknown Analyte negati ve Not Available [address] [place] [address], [address], 09/20/2022 17:52:10 09/20/20 22 09/20/2022 rapid flu (A+B) Unknown Analyte positi ve Not Available [address] [place] [address], [address], 09/20/2022 17:57:47 09/20/20 22 09/20/2022 rapid flu (A+B) Unknown Analyte negati ve Not Available [address] [place] [address], [address], 09/20/2022 17:57:47 11/02/19 23 11/02/2022 pregn angela test, urine Unknown Analyte Normal = Negati ve Not Available 2099leena lee [address], [place], [address], 11/02/2022 20:03:07 11/02/19 23 11/02/2022 pregn angela test, urine Unknown Analyte negati ve Not Available 2099leena lee [address], [place], [address], 11/02/2022 20:03:07 11/02/19 23 11/02/2022 urina lysis , dipst ick Unknown Analyte Normal = light yellow Not Available 2099leena lee [address], [place], [address], 11/02/2022 19:48:57 11/02/1911/02/2022 urina lysis , dipst ick Unknown Analyte Light Yellow Not Available 2099leena lee [address], [place], [address], 11/02/2022 19:48:57 11/02/19 23 11/02/2022 urina lysis , dipst ick Unknown Analyte Normal = clear Not Available leena lee [address], [place], [place], [address], 11/02/2022 19:48:57 11/02/19 23 11/02/2022 urina lysis , dipst ick Unknown Analyte Clear Not Available [address], [place], [place], [address], 11/02/2022 19:48:57 11/02/19 23 11/02/2022 urina lysis , dipst ick Unknown Analyte Normal = negati ve Not Available leena lee [address], [place], [place], [address], 11/02/2022 19:48:57 11/02/19 23 11/02/2022 urina lysis , dipst ick Unknown Analyte Negati ve Not Available 2099leena lee [address], [place], [address], 11/02/2022 19:48:57 11/02/19 23 11/02/2022 urina lysis , dipst ick Unknown Analyte Normal = Negati ve Not Available 2099leena [address], [place], [address], 11/02/2022 19:48:57 11/02/1911/02/2022 urina lysis , dipst ick Unknown Analyte Negati ve Not Available [facility] [address], [place], [address], 11/02/2022 19:48:57 11/02/19 23 11/02/2022 urina lysis , dipst ick Unknown Analyte Normal = Negati ve Not Available leena [address], [place], [address], 11/02/2022 19:48:57 11/02/1911/02/2022 urina lysis , dipst ick Unknown Analyte Negati ve Not Available leena [address], [place], [address], 11/02/2022 19:48:57 11/02/19 23 11/02/2022 urina lysis , dipst ick Unknown Analyte Normal = 1.010, 1.015, 1.020 Not Available [facility] [address], [place], [address], 11/02/2022 19:48:57 11/02/19 23 11/02/2022 urina lysis , dipst ick Unknown Analyte 1.020 Not Available [address] [place] [address] Drive, [place], [address], 11/02/2022 19:48:57 11/02/1911/02/2022 urina lysis , dipst ick Unknown Analyte Normal = Negati ve Not Available leena lee [address]em[address], [place], [address], 11/02/2022 19:48:57 11/02/19 23 11/02/2022 urina lysis , dipst ick Unknown Analyte Negati ve Not Available leena pe emem[address], [place], [address], 11/02/2022 19:48:57 11/02/1911/02/2022 urina lysis , dipst ick Unknown Analyte Normal = 6.5, 7.0, 7.5, 8.0 Not Available leena lee [address], [place], [address], 11/02/2022 19:48:57 11/02/19 23 11/02/2022 urina lysis , dipst ick Unknown Analyte 6.5 Not Available thelma [address], [place], [address], 11/02/2022 19:48:57 11/02/1911/02/2022 urina lysis , dipst ick Unknown Analyte Normal = Negati ve Not Available [facility]ena pe [facility], [place], [address], 11/02/2022 19:48:57 11/02/1911/02/2022 urina lysis , dipst ick Unknown Analyte Negati ve Not Available leena pe emem[address], [place], [address], 11/02/2022 19:48:57 02/10/21 2211/02/2022 urina lysis , dipst ick Unknown Analyte Normal = 0.2, 1.0 Not Available leena lee [address], [place], [address], 11/02/2022 19:48:57 11/02/19 23 11/02/2022 urina lysis , dipst ick Unknown Analyte 0.2 E.U./d L Not Available [facility] [address], [place], [address], 11/02/2022 19:48:57 11/02/1911/02/2022 urina lysis , dipst ick Unknown Analyte Normal = Negati ve Not Available [facility] [address], [place], [place], [address], 11/02/2022 19:48:57 11/02/1911/02/2022 urina lysis , dipst ick Unknown Analyte Negati ve Not Available leena [address], [place], [address], 11/02/2022 19:48:57 11/02/1911/02/2022 urina lysis , dipst ick Unknown Analyte Normal = Negati ve Not Available [facility] [address], [place], [address], 11/02/2022 19:48:57 11/02/1911/02/2022 urina lysis , dipst ick Unknown Analyte Negati ve Not Available [address], [place], [address], 11/02/2022 19:48:57 11/17/19 23 11/17/2022 pregn angela test, urine Unknown Analyte Normal = Negati ve Not Available [address], [place], [address], 11/17/2022 18:41:03 11/17/19 23 11/17/2022 pregn angela test, urine Unknown Analyte negati ve Not Available [facility] [address], [place], [address], 11/17/2022 18:41:03 11/17/19 23 11/17/2022 urina lysis , dipst ick Unknown Analyte Normal = light yellow Not Available [address] [place] [address], [place], [address], 11/17/2022 18:40:51 11/17/19 23 11/17/2022 urina lysis , dipst ick Unknown Analyte Normal = clear Not Available [address], [place], [address], 11/17/2022 18:40:51 11/17/19 23 11/17/2022 urina lysis , dipst ick Unknown Analyte Normal = negati ve Not Available [address], [place], [address], 11/17/2022 18:40:51 11/17/19 23 11/17/2022 urina lysis , dipst ick Unknown Analyte Normal = Negati ve Not Available [address], [place], [address], 11/17/2022 18:40:51 11/17/19 23 11/17/2022 urina lysis , dipst ick Unknown Analyte Normal = Negati ve Not Available [address], [place], [address], 11/17/2022 18:40:51 11/17/19 23 11/17/2022 urina lysis , dipst ick Unknown Analyte Normal = 1.010, 1.015, 1.020 Not Available leena lee em[address], [place], [address], 11/17/2022 18:40:51 11/17/19 23 11/17/2022 urina lysis , dipst ick Unknown Analyte Normal = Negati ve Not Available 2099[facility] [address], [place], [address], 11/17/2022 18:40:51 11/17/19 23 11/17/2022 urina lysis , dipst ick Unknown Analyte Normal = 6.5, 7.0, 7.5, 8.0 Not Available 2099leena lee [address], [place], [address], 11/17/2022 18:40:51 11/17/19 23 11/17/2022 urina lysis , dipst ick Unknown Analyte Normal = Negati ve Not Available [facility] [address], [place], [address], 11/17/2022 18:40:51 11/17/19 23 11/17/2022 urina lysis , dipst ick Unknown Analyte Normal = 0.2, 1.0 Not Available 2099[facility] [address], [place], [address], 11/17/2022 18:40:51 11/17/19 23 11/17/2022 urina lysis , dipst ick Unknown Analyte Normal = Negati ve Not Available 2099leena lee [address], [place], [address], 11/17/2022 18:40:51 11/17/19 23 11/17/2022 urina lysis , dipst ick Unknown Analyte Normal = Negati ve Not Available 20[facility] [address], [place], [address], 11/17/2022 18:40:51 11/17/19 23 11/17/2022 urina lysis , dipst ick Unknown Analyte Yellow Not Available thelma [address], [place], [address], 11/17/2022 18:40:51 11/17/19 23 11/17/2022 urina lysis , dipst ick Unknown Analyte Clear Not Available thelma [address], [place], [address], 11/17/2022 18:40:51 11/17/19 23 11/17/2022 urina lysis , dipst ick Unknown Analyte Negati ve Not Available leena lee [address], [place], [address], 11/17/2022 18:40:51 11/17/19 23 11/17/2022 urina lysis , dipst ick Unknown Analyte Negati ve Not Available leena lee [address], [place], [address], 11/17/2022 18:40:51 11/17/19 23 11/17/2022 urina lysis , dipst ick Unknown Analyte Negati ve Not Available leena lee [address], [place], [address], 11/17/2022 18:40:51 11/17/19 23 11/17/2022 urina lysis , dipst ick Unknown Analyte 1.020 Not Available thelma [address], [place], [place], [address], 11/17/2022 18:40:51 11/17/19 23 11/17/2022 urina lysis , dipst ick Unknown Analyte Negati ve Not Available leena lee [address], [place], [place], [address], 11/17/2022 18:40:51 11/17/19 23 11/17/2022 urina lysis , dipst ick Unknown Analyte 7.0 Not Available thelma [address], [place], [address], 11/17/2022 18:40:51 11/17/19 23 11/17/2022 urina lysis , dipst ick Unknown Analyte Negati ve Not Available leena lee [address], [place], [address], 11/17/2022 18:40:51 11/17/19 23 11/17/2022 urina lysis , dipst ick Unknown Analyte 0.2 E.U./d L Not Available leena lee [address], [place], [address], 11/17/2022 18:40:51 11/17/19 23 11/17/2022 urina lysis , dipst ick Unknown Analyte Negati ve Not Available leena lee [address], [place], [address], 11/17/2022 18:40:51 11/17/19 23 11/17/2022 urina lysis , dipst ick Unknown Analyte Negati ve Not Available leena lee [address], [place], [address], 11/17/2022 18:40:51 Result Notes None recorded. Problems Name Problem SNOMED Code Status Onset Date Resolution Date Notes Provider Name and Address Organization Details Recorded Time Insomnia 084458448 Active 2021 EDIE Rivera - [facility] 17:56:19 Depressive disorder 58137873 Active 2021 JAZMIN gaspar PA - [facility] 17:56:26 Bipolar disorder 71544151 Active 2021 JAZMIN KUMAR null, PA - [facility] 2 17:56:36 Migraine 01922138 Active 2021 JAZMINUMESH BRUNOEY null, PA - [facility] 2 17:56:43 Gastroesophage al reflux disease 856188536 Active 2021 JAZMINUMESH BRUNOEY null, PA - [facility] 2 17:56:49 Asthma 495859982 Active 2021 JAZMINUMESH KUMAR null, PA - [facility] 2 17:56:57 Constipation 68323252 Active 2021 JAZMINUMESH BRUNOEY null, PA - [facility] 2 17:57:06 Problem Notes None recorded. Medical Equipment None Reported. Allergies Allergen ID Allergen Name Allergen Category Reaction Reaction Severity Criticality Documentation Date Start Date Code Code System Note Provider Name and Address Organization Details Recorded Time 69263 Miralax medicatio n Not available Not available Not available 09/20/2022 53656 5 RxNorm JAZMIN KUMAR null, PA - [facility] 2 17:54:12 60212 amoxicill in medicatio n Not available Not available Not available 09/20/2022 723 RxNorm JAZMIN KUMAR null, PA - [facility] 2 17:54:16 68339 Product containin g penicilli n and antibioti c (product) medicatio n Not available Not available Not available 09/20/2022 28847 05 SNOMED JAZMIN KUMAR null, PA - [facility] 2 17:54:22 66528 sulindac medicatio n Not available Not available Not available 09/20/2022 70060 RxNorm JAZMIN KUMAR null, PA - [facility] 2 17:54:29 41550 sennoside s, CUSTODIAL medicatio n Not available Not available Not available 09/20/2022 69556 RxNorm JAZMIN KUMAR null, [facility] - [facility] [...] ot Available Vitals Date Recorded Body height Body mass index (BMI) Body weight Provider Name and Address Organization Details Last Updated DateTime 09/20/2022 162.56 cm 35.9 kg/m2 68620.81 g JAZMIN IRIZARRY - [facility] 09/20/2022 17:53:41 Date Recorded Body height Body mass index (BMI) Body weight Pain severity - 0-10 verbal numeric rating [Score] - Reported Oxygen saturation Oxygen saturation in Arterial blood by Pulse oximetry Heart rate Respiratory rate Body temperature Systolic blood pressure Diastolic blood pressure Provider Name and Address Organization Details Last Updated DateTime 3 162.56 cm 35.9 kg/m2 31438.8 1 g 10 99 % 99 % 81 /min 20 /min 97.8 [degF] 147 mm[Hg] 98 mm[Hg] Maeve Bell PA - [facility] 3 19:44:52 Date Recorded Systolic blood pressure Diastolic blood pressure Provider Name and Address Organization Details Last Updated DateTime 11/02/2022 132 mm[Hg] 84 mm[Hg] EDIE STEVE [address] [place], [place] [address], [address], PA - [facility] 11/02/2022 20:13:06 Date Recorded Body height Body mass index (BMI) Body weight Pain severity Cruz-Marcus FACES pain rating scale Oxygen saturation Oxygen saturation in Arterial blood by Pulse oximetry Heart rate Respiratory rate Body temperature Systolic blood pressure Diastolic blood pressure Provider Name and Address Organization Details Last Updated DateTime 3 162.56 cm 35.9 kg/m2 68881.8 1 g 5 97 % 97 % 95 /min 18 /min 97.9 [degF] 143 mm[Hg] 88 mm[Hg] Maeve Bell PA - [facility] 3 18:40:21 Social History Question Answer Notes LastModified by Organizat ion Details LastModified Time Tobacco Smoking Status Former Smoker JAZMIN gaspar PA - [facility] 09/20/2022 17:57:37 What Is Your Level Of Alcohol Consumption? None Information not available 09/20/2022 When Did You Quit Smoking? 1-5yearssin celastcigar ette [email or web address] Information not available 09/20/2022 Do You Use Any Illicit Or Recreational Drugs? No [email or web address] Information not available 09/20/2022 Have You Recently Traveled Abroad? No Information not available 09/20/2022 Do You Or Have You Ever Used Any Other Forms Of Tobacco Or Nicotine? No [email or web address] Information not available 09/20/2022 Sex: Unknown Functional Status None recorded. Mental Status None recorded. Family History Relationship Description Onset Age of this Age Resolved Age Notes LastModified by Organization Details LastModified Time Father No current problems or disability [email or web address] Not available 09/20 17:57:14 Mother No current problems or disability Not available 09/20 17:57:14 Medical History No [...] SNOMED-CT Code Diagnosis ICD10 Code Diagnosis Note [id number] [facility] [address] [place] [address] 03/01/2018 19:08:03 03/01/2018 20:09:30 [id number] [facility] [address] [place] [address] 04/20/2021 11:47:11 04/20/2021 12:34:46 [id number] EDIE Robles [facility] [address] [place] [address] 09/20/2022 17:17:57 09/20/2022 18:38:19 Influenza caused by Influenza A virus 020343178 J09.X2 [id number] [facility] [address] [place] [address] 11/02/2022 19:02:21 11/02/2022 20:15:12 Dysuria 59000357 R30.0 [id number] Sanya Suárez, [employer] [address] [address] [address] 11/17/2022 16:39:43 11/17/2022 19:10:36 Acute urinary tract infection 331550689 N39.0 Health Concerns Section Related Observation LastModified by Organization Detai ls LastModified Time None Recorded Concern Status LastModified by Organization Details LastModified Time None Recorded Advance Directives Directive None Recorded Payers Encounter Date Sequence Insurance Name Policy Number Policy Tavarez Covered Member ID Tavarez Member ID Guarantor Name 03/01/2018 1 [facility] NET PL[facility] (MEDICAID HMO) MARY JANE Cartwright [id number] Lidmary Caregiver 04/20/2021 1 [facility] PLAN (MEDICAID HMO) MARY JANE Cartwright [id number] Lidmary Caregiver 09/20/2022 1 [facility] PLAN (MEDICAID HMO) MARY JANE Cartwright [id number] Lidmary Caregiver 11/02/2022 1 [facility] NET PLAN (MEDICAID HMO) MARY JANE Cartwright [id number] Lidmary Caregiver 11/17/2022 1 [facility] NET PLAN (MEDICAID HMO) [facility] Cartwright [id number] Lidmary Caregiver Notes Date Note Type Note Provider Name and Address Organization Details Recorded Time 2 text/html Sore throatReported bypatient.Notes:Pt and caregiver report cough, sore throat, congestion, fatigue x 3-4 days. Taking OTC naproxen and using albuterol as previously prescribed. Denies fever, SOB, wheezing currently. EDIE Robles [address] [place], [address], PA - [facility] 09/20/2022 18:43:28 3 text/html Urinary Complaint [...] or bladder issues. Sanya Suárez NP [address] [place], [address], PA - [facility] 11/17/2022 19:08:05 OBGyn Episode No OBEpisode recorded.
--- OUTSIDE RECORDS SUMMARY | 2024-11-14 08:50 | XMS_ITS | Clinical Summary ---
Author Organization [employer] it Address [address] [place] [address] Care Team Providers Care Genetic Physician Name Role Phone Fernandez Tyler MD Primary Care Provider [phone] Surgical History Surgery Date Site/Laterality Comments BREAST [...] drink = 0.6 oz pur e alcohol) Comments Unknown Sex and Gender Information Value Date Recorded Sex Assigned at Not on file Legal Sex Female 7:02 AM EST Gender Identity Not on file Sexual Orientation [...] age to complete this topic Care Teams Genetic Physician Relationship Specialty Start Date End Date Fernandez Tyler MD [address] [place] [address] Drive [address] [place] [address] PCP - General Internal Medicine 03/19/14
[2024-11-14] MEDS: Sodium Bicarbonate 8.4% 50 MEQ/50 ML VIAL SUBCUT (09:46)
[2024-11-14] MEDS: Lidocaine HCl 1 % 20 ML VIAL 9 ML SUBCUT (09:47)
== END 2024-11-14 08:45 | disposition home or self-care (01) ==
LOC: HO.MAMMO 08:44
PROVIDERS: Absent Provider Advanced Practice Midwife; PCP Internal Medicine; Visit Provider Surgery
DX: N63.15 Unspecified lump in the right breast, overlapping quadrants (principal); R92.8 Other abnormal and inconclusive findings on diagnostic imaging of breast
CPT/HCPCS: 19083; 77061; 77065; 88305; A4648; J2003

== ENCOUNTER → 2024-11-14 09:00 | Outpatient (BNV) | payer OTHER, SELFPAY | PROVIDERS: Absent Provider Advanced Practice Midwife; PCP Internal Medicine; Visit Provider Internal Medicine | DX: N63.11 Unspecified lump in the right breast, upper outer quadrant (principal) | CPT/HCPCS: 19083; 77065 ==

== ENCOUNTER 2024-11-21 08:24 | Outpatient (AMB) | payer OTHER, SELFPAY ==
--- NOTE | 2024-11-21 08:25 | A.OFFVIS_ITS ---
Vital Signs 11/21/24 08:31 Height 5 ft 3 in Weight 229 lb BMI 40.6 BP 183/99 H Blood Pressure Location Rt brachial Position Sitting Pulse 102 H Intake Visit Reasons: s/p (R) breast US Bx 11:00 mass Intake Note: Patient is seen in office for ultrasound biopsy results, right breast 11 o'clock mass. Pt c/o: brusing along bx site, sore. Cost And Sales Record Supervisor Required: No Accompanied by: Ria~ living provider Allergies amoxicillin [AMOXICILLIN] Allergy (Severe, Verified 11/21/24 08:31) ANAPHYLAXIS, swelling Penicillins [PENICILLINS] Allergy (Severe, Verified 11/21/24 08:31) ANAPHYLAXIS polyethylene glycol 3350 [From MIRALAX] Allergy (Severe, Verified 11/21/24 08:31) ANAPHYLAXIS sulindac [SULINDAC] Allergy (Severe, Verified 11/21/24 08:31) SWELLING senna Allergy (Intermediate, Verified 11/21/24 08:31) Unknown seafood Allergy (Verified 11/21/24 08:31) Hives HPI Comments Details: 34-year-old female patient presenting with a recent mammogram and ultrasound which revealed a density in the right breast felt to be suspicious. An ultrasound-guided core biopsy is scheduled at the [facility] on 11/14/2024. She reports a previous history of a right breast biopsy approximately 7 years performed at [facility]. This apparently was benign. Recently she has been experiencing pain in the breast especially in the lower quadrants. She denied any palpable mass and denies any symptoms on the left breast. Her family history is significant only for a maternal aunt with breast cancer. She does not have much information regarding the remainder of her family. She is premenopausal and apparently had 1 which was terminated at the age of 19. Her last menstrual period was on 10/20/2024. She denies any previous genetic testing. She underwent an ultrasound-guided core biopsy of the right breast on 11/14/2024. 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 She tolerated the procedure well but did report some bruising in the right breast. [facility] Medical History Breast mass, right Morbid obesity with BMI of 40.0-44.9, adult Hypertension Annual visit for general adult medical examination with abnormal findings Heart murmur, systolic Breast pain Right Achilles tendinitis Erythema intertrigo External hemorrhoids Bleeding hemorrhoids Vitamin D deficiency Heel callus Mild intermittent asthma in adult without complication Ex-cigarette smoker Motion sickness Mild intellectual disability Porcelain gallbladder Migraine Depression with anxiety Obesity Dysmenorrhea 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 Brother No problems noted. Brother No problems noted. 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 Cognitive needs: No Hearing needs: No Vision needs: Yes Female Reproductive History Menstrual Age of Menarche: 13 Review of Systems Const All systems reviewed & are unremarkable except as noted in HPI and below Physical Exam Vital Signs: Last Vital Signs Pulse 102 H 11/21/24 08:31 BP 183/99 H 11/21/24 08:31 BMI result Body Mass Index 40.6 Const General: no acute distress Nutritional Appearance: well nourished Orientation/consciousness: patient oriented x3 Chest Other: Exam deferred Resp Effort & Inspection: normal respiratory effort Skin Other: Warm, dry, no rash Neuro General: patient oriented x3 Assessment & Plan Assessment & Plan (1) Pseudoangiomatous stromal hyperplasia of breast: Code(s): N64.89 - Other specified disorders of breast Category: Medical Plan 34-year-old female patient status post ultrasound-guided core biopsy of right breast mass. Findings were benign with pseudoangiomatous stromal hyperplasia. A copy of the report was provided to the patient. I recommended routine follow- up. Coding Level of Care Code Est Pt Level 3 (69684) Diagnoses Pseudoangiomatous stromal hyperplasia of breast N64.89
[2024-11-21 08:31] VITALS: BP 183/99; PULSE 102; BMI 40.6
--- OUTSIDE RECORDS SUMMARY | 2024-11-21 08:50 | XMS_ITS | Clinical Summary ---
Author Organization [employer] it Address [address] [place] [address] Care Team Providers Care Boiler Service Technician Name Role Phone Fernandez Tyler MD Primary Care Provider [phone] Surgical History Surgery Date Site/Laterality Comments BREAST [...] Last Done Comments COVID-19 Vaccine (#1) 01/08/1997 DTaP,Tdap,and Td Vaccines (1 - Tdap) 01/08/2011 Hepatitis B Vaccines (1 of 3 - 19+ 3-dose series) 01/08/2011 Pneumococcal Vaccine: Pediatrics (0 to 5 Years) and At-Risk Patients (6 to 64 Years) (1 of 2 - PCV) 01/08/2011 Cervical Cancer Screening: P ap Smear [...] patient's age to complete this topic Meningococcal B Vacine Aged Out No lo nger eligible based on patient's age to complete this topic RSV Immunization Patients Under 20 months Aged Out No longer eligible b ased on patient's age to complete this topic Varicella Vaccines Aged Out No longer eligible based on patient's age to complete this topic Care Teams Boiler Service Technician Relationship Specialty Start Date End Date Fernandez Tyler MD [address] [place] [address] Drive [address] [place] [address] PCP - General Internal Medicine 03/19/14
--- OUTSIDE RECORDS SUMMARY | 2024-11-21 08:50 | XMS_ITS | Data Portability ---
Author Organization EDIE [facility]el[facility] Address [address] [place] [address] Care Team Providers Care High Pressure Cleaner Name Role Phone DANTE MARTINES Primary Care Provider [phone] Assessment No assessment recorded. Plan of Treatment Reminders Order Date Submit Date Provider Last Modified By Organization Details Last Modified Time Details Appointments None recorded. Lab urinalysis , dipstick 2022 023 [email or web address] [facility], [address] [place] [address], [address], 3 19:07:26 test, urine 2022 023 [email or web address] _thelma [facility], [address] [place] [address], [address], 3 19:07:26 culture, urine 2022 023 [email or web address] [facility], [address] [place] [address], [place], [address], 3 19:39:46 urinalysis , dipstick 2022 023 [email or web address] [facility], [address] [place] [address], [address], 3 20:12:31 test, urine 2022 023 [email or web address] [facility], [address] [place] [address], [address], 3 20:12:31 culture, urine 2022 023 [facility] ([facility], [address] [place] [address], [place], [address], 3 15:51:57 rapid strep group A, throat 2021 022 [email or web address] 5 _[facility], [address] [place] [address], [address], 2 18:30:46 rapid flu (A+B) 2021 022 [email or web address] 5 _[facility], [address] [place] [address], [place], [address], 2 18:30:46 rapid SARS CoV 2 Ag, QL IA, respirator y specimen 2021 022 [email or web address] 5 _[facility], [address] [place] [address], [place], [address], 2 18:30:46 Referral None recorded. Procedures None recorded. Surgeries None recorded. Imaging None recorded. Medication Orders Macrobid 100 mg capsule 2022 023 [facility]acy #[id number], [address] [facility], [place], [address], 3 19:07:28 nitrofuran toin monohydrat e/macrocry stals 100 mg capsule 2022 023 kevin [facility]/Pharmacy #[id number], [address] [facility], [place], [address], 3 18:28:08 acetaminop hen 325 mg tablet 2021 022 [facility]acy #[id number], [address] [facility], [place], [address], 2 18:43:07 Patient TargetsNo targets recorded. Patient Instructions Encounter Date Encounter Id Patient Instructions Last Modified By Organization Details Last Modified Time 09/20/2022 [id number] sore throat: rody pate instructions [email or web address] Not available 09/20/2022 18:30:46 Go to the [facility] emergency department if you develop ANY new [...] without a prescription. Drink plenty of water. Not available 09/20/2022 18:25:38 11/02/2022 [id number] urinary tract infection in women information [email or web address] Not available 11/02/2022 20:12:31 You are going [...] antibiotic was prescribed. Thank you for using [facility] - please don't hesistate to call our office if you have any questions or concerns. [email or web address] Not available 11/02/2022 20:12:18 11/17/2022 [id number] We recommend you get a repeat urinalysis [...] men Unknown Analyte negati ve Not Available [address], [address], 09/20/2022 17:57:52 09/20/20 22 09/20/2022 rapid strep group A, throa t Unknown Analyte negati ve Not Available [address] [place] [address], [address], 09/20/2022 17:52:10 09/20/20 22 09/20/2022 rapid flu (A+B) Unknown Analyte positi ve Not Available [address] [place] [address], [address], 09/20/2022 17:57:47 09/20/20 22 09/20/2022 rapid flu (A+B) Unknown Analyte negati ve Not Available [address] [place] [address], [address], 09/20/2022 17:57:47 11/02/19 23 11/02/2022 pregn angela test, urine Unknown Analyte Normal = Negati ve Not Available 2099leena lee [address], [place], [address], 11/02/2022 20:03:07 11/02/19 23 11/02/2022 pregn angela test, urine Unknown Analyte negati ve Not Available 2099leena lee [address], [place], [address], 11/02/2022 20:03:07 11/02/19 23 11/02/2022 urina lysis , dipst ick Unknown Analyte Normal = light yellow Not Available 2099leena lee [address], [place], [address], 11/02/2022 19:48:57 11/02/1911/02/2022 urina lysis , dipst ick Unknown Analyte Light Yellow Not Available 2099leena lee [address], [place], [address], 11/02/2022 19:48:57 11/02/19 23 11/02/2022 urina lysis , dipst ick Unknown Analyte Normal = clear Not Available leena lee [address], [place], [place], [address], 11/02/2022 19:48:57 11/02/19 23 11/02/2022 urina lysis , dipst ick Unknown Analyte Clear Not Available [address], [place], [place], [address], 11/02/2022 19:48:57 11/02/19 23 11/02/2022 urina lysis , dipst ick Unknown Analyte Normal = negati ve Not Available leena lee [address], [place], [place], [address], 11/02/2022 19:48:57 11/02/19 23 11/02/2022 urina lysis , dipst ick Unknown Analyte Negati ve Not Available 2099leena lee [address], [place], [address], 11/02/2022 19:48:57 11/02/19 23 11/02/2022 urina lysis , dipst ick Unknown Analyte Normal = Negati ve Not Available 2099leena [address], [place], [address], 11/02/2022 19:48:57 11/02/1911/02/2022 urina lysis , dipst ick Unknown Analyte Negati ve Not Available [facility] [address], [place], [address], 11/02/2022 19:48:57 11/02/19 23 11/02/2022 urina lysis , dipst ick Unknown Analyte Normal = Negati ve Not Available leena [address], [place], [address], 11/02/2022 19:48:57 11/02/1911/02/2022 urina lysis , dipst ick Unknown Analyte Negati ve Not Available leena [address], [place], [address], 11/02/2022 19:48:57 11/02/19 23 11/02/2022 urina lysis , dipst ick Unknown Analyte Normal = 1.010, 1.015, 1.020 Not Available [facility] [address], [place], [address], 11/02/2022 19:48:57 11/02/19 23 11/02/2022 urina lysis , dipst ick Unknown Analyte 1.020 Not Available [address] [place] [address] Drive, [place], [address], 11/02/2022 19:48:57 11/02/1911/02/2022 urina lysis , dipst ick Unknown Analyte Normal = Negati ve Not Available leena lee [address]em[address], [place], [address], 11/02/2022 19:48:57 11/02/19 23 11/02/2022 urina lysis , dipst ick Unknown Analyte Negati ve Not Available leena pe emem[address], [place], [address], 11/02/2022 19:48:57 11/02/1911/02/2022 urina lysis , dipst ick Unknown Analyte Normal = 6.5, 7.0, 7.5, 8.0 Not Available leena lee emem[address], [place], [address], 11/02/2022 19:48:57 11/02/19 23 11/02/2022 urina lysis , dipst ick Unknown Analyte 6.5 Not Available thelma [address], [place], [address], 11/02/2022 19:48:57 11/02/1911/02/2022 urina lysis , dipst ick Unknown Analyte Normal = Negati ve Not Available leena pe [facility], [place], [address], 11/02/2022 19:48:57 11/02/1911/02/2022 urina lysis , dipst ick Unknown Analyte Negati ve Not Available leena pe emem[address], [place], [address], 11/02/2022 19:48:57 02/10/21 2211/02/2022 urina lysis , dipst ick Unknown Analyte Normal = 0.2, 1.0 Not Available leena lee [address], [place], [address], 11/02/2022 19:48:57 11/02/19 23 11/02/2022 urina lysis , dipst ick Unknown Analyte 0.2 E.U./d L Not Available [facility] [address], [place], [address], 11/02/2022 19:48:57 11/02/1911/02/2022 urina lysis , dipst ick Unknown Analyte Normal = Negati ve Not Available [facility] [address], [place], [place], [address], 11/02/2022 19:48:57 11/02/1911/02/2022 urina lysis , dipst ick Unknown Analyte Negati ve Not Available leena [address], [place], [address], 11/02/2022 19:48:57 11/02/1911/02/2022 urina lysis , dipst ick Unknown Analyte Normal = Negati ve Not Available [facility] [address], [place], [address], 11/02/2022 19:48:57 11/02/1911/02/2022 urina lysis , dipst ick Unknown Analyte Negati ve Not Available [address], [place], [address], 11/02/2022 19:48:57 11/17/19 23 11/17/2022 pregn angela test, urine Unknown Analyte Normal = Negati ve Not Available [address], [place], [address], 11/17/2022 18:41:03 11/17/19 23 11/17/2022 pregn angela test, urine Unknown Analyte negati ve Not Available [facility] [address], [place], [address], 11/17/2022 18:41:03 11/17/19 23 11/17/2022 urina lysis , dipst ick Unknown Analyte Normal = light yellow Not Available [address] [place] [address], [place], [address], 11/17/2022 18:40:51 11/17/19 23 11/17/2022 urina lysis , dipst ick Unknown Analyte Normal = clear Not Available [address], [place], [address], 11/17/2022 18:40:51 11/17/19 23 11/17/2022 urina lysis , dipst ick Unknown Analyte Normal = negati ve Not Available [address], [place], [address], 11/17/2022 18:40:51 11/17/19 23 11/17/2022 urina lysis , dipst ick Unknown Analyte Normal = Negati ve Not Available [address], [place], [address], 11/17/2022 18:40:51 11/17/19 23 11/17/2022 urina lysis , dipst ick Unknown Analyte Normal = Negati ve Not Available [address], [place], [address], 11/17/2022 18:40:51 11/17/19 23 11/17/2022 urina lysis , dipst ick Unknown Analyte Normal = 1.010, 1.015, 1.020 Not Available leena lee em[address], [place], [address], 11/17/2022 18:40:51 11/17/19 23 11/17/2022 urina lysis , dipst ick Unknown Analyte Normal = Negati ve Not Available [facility] [address], [place], [address], 11/17/2022 18:40:51 11/17/19 23 11/17/2022 urina lysis , dipst ick Unknown Analyte Normal = 6.5, 7.0, 7.5, 8.0 Not Available 2099leena lee [address], [place], [address], 11/17/2022 18:40:51 11/17/19 23 11/17/2022 urina lysis , dipst ick Unknown Analyte Normal = Negati ve Not Available [facility] [address], [place], [address], 11/17/2022 18:40:51 11/17/19 23 11/17/2022 urina lysis , dipst ick Unknown Analyte Normal = 0.2, 1.0 Not Available [facility]e [address], [place], [address], 11/17/2022 18:40:51 11/17/19 23 11/17/2022 urina lysis , dipst ick Unknown Analyte Normal = Negati ve Not Available 2099leena lee [address], [place], [address], 11/17/2022 18:40:51 11/17/19 23 11/17/2022 urina lysis , dipst ick Unknown Analyte Normal = Negati ve Not Available [facility] [address], [place], [address], 11/17/2022 18:40:51 11/17/19 23 11/17/2022 urina lysis , dipst ick Unknown Analyte Yellow Not Available thelma [address], [place], [address], 11/17/2022 18:40:51 11/17/19 23 11/17/2022 urina lysis , dipst ick Unknown Analyte Clear Not Available thelma [address], [place], [address], 11/17/2022 18:40:51 11/17/19 23 11/17/2022 urina lysis , dipst ick Unknown Analyte Negati ve Not Available leena lee [address], [place], [address], 11/17/2022 18:40:51 11/17/19 23 11/17/2022 urina lysis , dipst ick Unknown Analyte Negati ve Not Available leena lee [address], [place], [address], 11/17/2022 18:40:51 11/17/19 23 11/17/2022 urina lysis , dipst ick Unknown Analyte Negati ve Not Available leena lee [address], [place], [address], 11/17/2022 18:40:51 11/17/19 23 11/17/2022 urina lysis , dipst ick Unknown Analyte 1.020 Not Available thelma [address], [place], [place], [address], 11/17/2022 18:40:51 11/17/19 23 11/17/2022 urina lysis , dipst ick Unknown Analyte Negati ve Not Available leena lee [address], [place], [place], [address], 11/17/2022 18:40:51 11/17/19 23 11/17/2022 urina lysis , dipst ick Unknown Analyte 7.0 Not Available thelma [address], [place], [address], 11/17/2022 18:40:51 11/17/19 23 11/17/2022 urina lysis , dipst ick Unknown Analyte Negati ve Not Available leena lee [address], [place], [address], 11/17/2022 18:40:51 11/17/19 23 11/17/2022 urina lysis , dipst ick Unknown Analyte 0.2 E.U./d L Not Available leena lee [address], [place], [address], 11/17/2022 18:40:51 11/17/19 23 11/17/2022 urina lysis , dipst ick Unknown Analyte Negati ve Not Available leena lee [address], [place], [address], 11/17/2022 18:40:51 11/17/19 23 11/17/2022 urina lysis , dipst ick Unknown Analyte Negati ve Not Available leena lee [address], [place], [address], 11/17/2022 18:40:51 Result Notes None recorded. Problems Name Problem SNOMED Code Status Onset Date Resolution Date Notes Provider Name and Address Organization Details Recorded Time Insomnia 343893293 Active 2021 EDIE Rivera - [facility] 17:56:19 Depressive disorder 46387291 Active 2021 JAZMIN gaspar PA - [facility] 17:56:26 Bipolar disorder 62575846 Active 2021 JAZMIN KUMAR null, PA - [facility] 2 17:56:36 Migraine 31775030 Active 2021 JAZMIN KUMAR null, PA - [facility] 2 17:56:43 Gastroesophage al reflux disease 739637434 Active 2021 JAZMIN KUMAR null, PA - [facility] 2 17:56:49 Asthma 731210962 Active 2021 JAZMIN KUMAR null, PA - [facility] 2 17:56:57 Constipation 96923470 Active 2021 JAZMIN KUMAR null, PA - [facility] 2 17:57:06 Problem Notes None recorded. Medical Equipment None Reported. Allergies Allergen ID Allergen Name Allergen Category Reaction Reaction Severity Criticality Documentation Date Start Date Code Code System Note Provider Name and Address Organization Details Recorded Time 14958 Miralax medicatio n Not available Not available Not available 09/20/2022 78051 5 RxNorm JAZMIN KUMAR null, PA - [facility] 2 17:54:12 32178 amoxicill in medicatio n Not available Not available Not available 09/20/2022 723 RxNorm JAZMIN BRUNOEY null, PA - [facility] 2 17:54:16 91870 Product containin g penicilli n (product) medicatio n Not available Not available Not available 09/20/2022 63950 8001 SNOMED JAZMIN BRUNOEY null, PA - [facility] 2 17:54:22 66171 sulindac medicatio n Not available Not available Not available 09/20/2022 65664 RxNorm JAZMIN KUMAR null, PA - [facility] 2 17:54:29 84081 sennoside s, HALFWAY medicatio n Not available Not available Not available 09/20/2022 21779 RxNorm JAZMIN KUMAR null, [facility] - [facility] [...] Updated DateTime 09/20/2022 162.56 cm 35.9 kg/m2 20310.81 g JAZMIN IRIZARRY - [facility] 09/20/2022 [...] Updated DateTime 3 162.56 cm 35.9 kg/m2 62717.8 1 g 10 99 % 99 % 81 /min 20 /min 97.8 [degF] 147 mm[Hg] 98 mm[Hg] Maeve Bell PA - [facility] 3 19:44:52 Date Recorded Systolic blood pressure Diastolic blood pressure Provider Name and Address Organization Details Last Updated DateTime 11/02/2022 132 mm[Hg] 84 mm[Hg] EDIE STEVE [facility] [place], [address], [place] - [facility] 11/02/2022 20:13:06 Date Recorded Body height Body mass index (BMI) Body weight Pain severity Cruz-Marcus FACES pain rating scale Oxygen saturation Oxygen saturation in Arterial blood by Pulse oximetry Heart rate Respiratory rate Body temperature Systolic blood pressure Diastolic blood pressure Provider Name and Address Organization Details Last Updated DateTime 3 162.56 cm 35.9 kg/m2 12832.8 1 g 5 97 % 97 % 95 /min 18 /min 97.9 [degF] 143 mm[Hg] 88 mm[Hg] Maeve Bell [place] - [facility] 3 18:40:21 Social History Question Answer Notes LastModified by Organizat ion Details LastModified Time Tobacco Smoking Status Former Smoker JAZMIN gaspar PA - [facility] 09/20/2022 17:57:37 What Is Your Level Of Alcohol Consumption? None [email or web address] Information not available 09/20/2022 When Did You Quit Smoking? 1-5yearssin celastcigar ette [email or web address] Information not available 09/20/2022 Do You Use Any Illicit Or Recreational Drugs? No [email or web address] Information not available 09/20/2022 Have You Recently Traveled Abroad? No [email or web address] Information not available 09/20/2022 Do You Or Have You Ever Used Any Other Forms Of Tobacco Or Nicotine? No [email or web address] Information not available 09/20/2022 Sex: Unknown Functional Status None recorded. Mental Status None recorded. Family History Relationship Description Onset Age of this Age Resolved Age Notes LastModified by Organization Details LastModified Time Father No current problems or disability [email or web address] Not available 09/20 17:57:14 Mother No current [...] SNOMED-CT Code Diagnosis ICD10 Code Diagnosis Note [id number] [facility] [address] [place] [address] 03/01/2018 19:08:03 03/01/2018 20:09:30 [id number] 20995_Chi Channing Homer [address] [place] [address] 04/20/2021 11:47:11 04/20/2021 12:34:46 [id number] EDIE Robles [facility] [address] [place] [address] 09/20/2022 17:17:57 09/20/2022 18:38:19 Influenza caused by Influenza A virus 216218458 J09.X2 [id number] 20995[facility] [address] [place] [address] 11/02/2022 19:02:21 11/02/2022 20:15:12 Dysuria 81900919 R30.0 [id number] Sanya Suárez, [place] [address] [address] [address] 11/17/2022 16:39:43 11/17/2022 19:10:36 Acute urinary tract infection 845879163 N39.0 Health Concerns Section Related Observation LastModified by Organization Detai ls LastModified Time None Recorded Concern Status LastModified by Organization Details LastModified Time None Recorded Advance Directives Directive None Recorded Payers Encounter Date Sequence Insurance Name Policy Number Policy Tavarez Covered Member ID Tavarez Member ID Guarantor Name 03/01/2018 1 [facility] [employer] (MEDICAID HMO) MARY JANE Cartwright [id number] Lidmary Caregiver 04/20/2021 1 [facility] [employer] (MEDICAID HMO) MARY JANE Cartwright [id number] Lidmary Caregiver 09/20/2022 1 [facility] [employer] (MEDICAID HMO) MARY JANE Cartwright [id number] Lidmary Caregiver 11/02/2022 1 [facility] [employer] (MEDICAID HMO) MARY JANE Cartwright [id number] Lidmary Caregiver 11/17/2022 1 [facility] [employer] (MEDICAID HMO) MARY JANE Cartwright [id number] Lidmary Caregiver Notes Date Note Type Note Provider Name and Address Organization Details Recorded Time 2 text/html Sore throatReported bypatient.Notes:Pt and caregiver report cough, sore throat, congestion, fatigue x 3-4 days. Taking OTC naproxen and using albuterol as previously prescribed. Denies fever, SOB, wheezing currently. EDIE Robles [address] [place], [address], [place] - [facility] 09/20/2022 18:43:28 3 [...] Suárez NP [address] [place], [address], [place] - [facility] 11/17/2022 19:08:05 OBGyn Episode No OBEpisode recorded.
== END 2024-11-21 08:36 | disposition home or self-care (01) ==
PROVIDERS: PCP Internal Medicine; Visit Provider Surgery
DX: N64.89 Other specified disorders of breast (principal)
CPT/HCPCS: 99213

== ENCOUNTER → 2024-11-21 08:24 | Outpatient (BNVA) | payer OTHER, SELFPAY | PROVIDERS: PCP Internal Medicine; Visit Provider Surgery | DX: N64.89 Other specified disorders of breast (principal) | CPT/HCPCS: 99212 ==

== ENCOUNTER 2024-11-22 15:36 | Outpatient (AMB) | payer OTHER, SELFPAY ==
--- OUTSIDE RECORDS SUMMARY | 2024-11-22 15:38 | XMS_ITS | Data Portability ---
Author Organization EDIE [facility] Address [address] [place] [address] Care Team Providers Care Inspector And Unloader Name Role Phone DANTE MARTINES Primary Care Provider Assessment No assessment recorded. Plan of Treatment Reminders Order Date Submit Date Provider Last Modified By Organization Details Last Modified Time Details Appointments None recorded. Lab urinalysis , dipstick 2022 023 [email or web address] [facility], [address] [place] [address], [address], 3 19:07:26 test, urine 2022 023 [email or web address] _thelma [facility], [address] [place] [address], [address], 3 19:07:26 culture, urine 2022 023 [email or web address] [facility], [address] [place] [address], [place], [address], 3 19:39:46 urinalysis , dipstick 2022 023 [email or web address] [facility], [address] [place] [address], [address], 3 20:12:31 test, urine 2022 023 [email or web address] [facility], [address] [place] [address], [address], 3 20:12:31 culture, urine 2022 023 [email or web address], [address] [place] [address], [place], [address], 3 15:51:57 rapid strep group A, throat 2021 022 [email or web address] 5 _[facility], [address] [place] [address], [address], 2 18:30:46 rapid flu (A+B) 2021 022 [email or web address] 5 _[facility], [address] [place] [address], [place], [address], 2 18:30:46 rapid SARS CoV 2 Ag, QL IA, respirator y specimen 2021 022 5 _[facility], [address] [place] [address], [place], [address], 2 18:30:46 Referral None recorded. Procedures None recorded. Surgeries None recorded. Imaging None recorded. Medication Orders Macrobid 100 mg capsule 2022 023 [facility]acy [facility][id number], [address] [facility], [place], [address], 3 19:07:28 nitrofuran toin monohydrat e/macrocry stals 100 mg capsule 2022 023 kevin [facility]/Pharmacy #[id number], [address], [place], [address], 3 18:28:08 acetaminop hen 325 mg tablet 2021 022 [facility]armacy #2339, [address] [facility], [place], [address], 2 18:43:07 Patient TargetsNo targets recorded. Patient Instructions Encounter Date Encounter Id Patient Instructions Last Modified By Organization Details Last Modified Time 09/20/2022 [id number] sore throat: rody pate instructions Not available 09/20/2022 18:30:46 Go to the [facility] emergency department if you develop ANY new [...] without a prescription. Drink plenty of water. [email or web address] Not available 09/20/2022 18:25:38 11/02/2022 [id number] urinary tract infection in women information Not [...] antibiotic was prescribed. Thank you for using [facility] - please don't hesistate to call our office if you have any questions or concerns. [email or web address] Not available 11/02/2022 20:12:18 11/17/2022 [id number] We recommend you get a repeat urinalysis [...] men Unknown Analyte negati ve Not Available [address], [address], 09/20/2022 17:57:52 09/20/20 22 09/20/2022 rapid strep group A, throa t Unknown Analyte negati ve Not Available [address] [place] [address], [address], 09/20/2022 17:52:10 09/20/20 22 09/20/2022 rapid flu (A+B) Unknown Analyte positi ve Not Available [address] [place] [address], [address], 09/20/2022 17:57:47 09/20/20 22 09/20/2022 rapid flu (A+B) Unknown Analyte negati ve Not Available [address] [place] [address], [address], 09/20/2022 17:57:47 11/02/19 23 11/02/2022 pregn nagela test, urine Unknown Analyte Normal = Negati ve Not Available 2099leena lee [address], [place], [address], 11/02/2022 20:03:07 11/02/19 23 11/02/2022 pregn angela test, urine Unknown Analyte negati ve Not Available 2099leena lee [address], [place], [address], 11/02/2022 20:03:07 11/02/19 23 11/02/2022 urina lysis , dipst ick Unknown Analyte Normal = light yellow Not Available 2099leena lee [address], [place], [address], 11/02/2022 19:48:57 11/02/1911/02/2022 urina lysis , dipst ick Unknown Analyte Light Yellow Not Available 2099leena lee [address], [place], [address], 11/02/2022 19:48:57 11/02/19 23 11/02/2022 urina lysis , dipst ick Unknown Analyte Normal = clear Not Available leena lee [address], [place], [place], [address], 11/02/2022 19:48:57 11/02/19 23 11/02/2022 urina lysis , dipst ick Unknown Analyte Clear Not Available [address], [place], [place], [address], 11/02/2022 19:48:57 11/02/19 23 11/02/2022 urina lysis , dipst ick Unknown Analyte Normal = negati ve Not Available leena lee [address], [place], [place], [address], 11/02/2022 19:48:57 11/02/19 23 11/02/2022 urina lysis , dipst ick Unknown Analyte Negati ve Not Available 2099leena lee [address], [place], [address], 11/02/2022 19:48:57 11/02/19 23 11/02/2022 urina lysis , dipst ick Unknown Analyte Normal = Negati ve Not Available 2099leena [address], [place], [address], 11/02/2022 19:48:57 11/02/1911/02/2022 urina lysis , dipst ick Unknown Analyte Negati ve Not Available [facility] [address], [place], [address], 11/02/2022 19:48:57 11/02/19 23 11/02/2022 urina lysis , dipst ick Unknown Analyte Normal = Negati ve Not Available leena [address], [place], [address], 11/02/2022 19:48:57 11/02/1911/02/2022 urina lysis , dipst ick Unknown Analyte Negati ve Not Available leena [address], [place], [address], 11/02/2022 19:48:57 11/02/19 23 11/02/2022 urina lysis , dipst ick Unknown Analyte Normal = 1.010, 1.015, 1.020 Not Available [facility] [address], [place], [address], 11/02/2022 19:48:57 11/02/19 23 11/02/2022 urina lysis , dipst ick Unknown Analyte 1.020 Not Available [address] [place] [address] Drive, [place], [address], 11/02/2022 19:48:57 11/02/1911/02/2022 urina lysis , dipst ick Unknown Analyte Normal = Negati ve Not Available leena lee [address]em[address], [place], [address], 11/02/2022 19:48:57 11/02/19 23 11/02/2022 urina lysis , dipst ick Unknown Analyte Negati ve Not Available leena pe emem[address], [place], [address], 11/02/2022 19:48:57 11/02/1911/02/2022 urina lysis , dipst ick Unknown Analyte Normal = 6.5, 7.0, 7.5, 8.0 Not Available leena lee [address], [place], [address], 11/02/2022 19:48:57 11/02/19 23 11/02/2022 urina lysis , dipst ick Unknown Analyte 6.5 Not Available thelma [address], [place], [address], 11/02/2022 19:48:57 11/02/1911/02/2022 urina lysis , dipst ick Unknown Analyte Normal = Negati ve Not Available [facility]ena pe [facility], [place], [address], 11/02/2022 19:48:57 11/02/1911/02/2022 urina lysis , dipst ick Unknown Analyte Negati ve Not Available leena pe emem[address], [place], [address], 11/02/2022 19:48:57 02/10/21 2211/02/2022 urina lysis , dipst ick Unknown Analyte Normal = 0.2, 1.0 Not Available leena lee [address], [place], [address], 11/02/2022 19:48:57 11/02/19 23 11/02/2022 urina lysis , dipst ick Unknown Analyte 0.2 E.U./d L Not Available [facility] [address], [place], [address], 11/02/2022 19:48:57 11/02/1911/02/2022 urina lysis , dipst ick Unknown Analyte Normal = Negati ve Not Available [facility] [address], [place], [place], [address], 11/02/2022 19:48:57 11/02/1911/02/2022 urina lysis , dipst ick Unknown Analyte Negati ve Not Available leena [address], [place], [address], 11/02/2022 19:48:57 11/02/1911/02/2022 urina lysis , dipst ick Unknown Analyte Normal = Negati ve Not Available [facility] [address], [place], [address], 11/02/2022 19:48:57 11/02/1911/02/2022 urina lysis , dipst ick Unknown Analyte Negati ve Not Available [address], [place], [address], 11/02/2022 19:48:57 11/17/19 23 11/17/2022 pregn angela test, urine Unknown Analyte Normal = Negati ve Not Available [address], [place], [address], 11/17/2022 18:41:03 11/17/19 23 11/17/2022 pregn angela test, urine Unknown Analyte negati ve Not Available [facility] [address], [place], [address], 11/17/2022 18:41:03 11/17/19 23 11/17/2022 urina lysis , dipst ick Unknown Analyte Normal = light yellow Not Available [address] [place] [address], [place], [address], 11/17/2022 18:40:51 11/17/19 23 11/17/2022 urina lysis , dipst ick Unknown Analyte Normal = clear Not Available [address], [place], [address], 11/17/2022 18:40:51 11/17/19 23 11/17/2022 urina lysis , dipst ick Unknown Analyte Normal = negati ve Not Available [address], [place], [address], 11/17/2022 18:40:51 11/17/19 23 11/17/2022 urina lysis , dipst ick Unknown Analyte Normal = Negati ve Not Available [address], [place], [address], 11/17/2022 18:40:51 11/17/19 23 11/17/2022 urina lysis , dipst ick Unknown Analyte Normal = Negati ve Not Available [address], [place], [address], 11/17/2022 18:40:51 11/17/19 23 11/17/2022 urina lysis , dipst ick Unknown Analyte Normal = 1.010, 1.015, 1.020 Not Available leena lee em[address], [place], [address], 11/17/2022 18:40:51 11/17/19 23 11/17/2022 urina lysis , dipst ick Unknown Analyte Normal = Negati ve Not Available 2099[facility] [address], [place], [address], 11/17/2022 18:40:51 11/17/19 23 11/17/2022 urina lysis , dipst ick Unknown Analyte Normal = 6.5, 7.0, 7.5, 8.0 Not Available 2099leena lee [address], [place], [address], 11/17/2022 18:40:51 11/17/19 23 11/17/2022 urina lysis , dipst ick Unknown Analyte Normal = Negati ve Not Available [facility] [address], [place], [address], 11/17/2022 18:40:51 11/17/19 23 11/17/2022 urina lysis , dipst ick Unknown Analyte Normal = 0.2, 1.0 Not Available [facility] [address], [place], [address], 11/17/2022 18:40:51 11/17/19 23 11/17/2022 urina lysis , dipst ick Unknown Analyte Normal = Negati ve Not Available 2099leena lee [address], [place], [address], 11/17/2022 18:40:51 11/17/19 23 11/17/2022 urina lysis , dipst ick Unknown Analyte Normal = Negati ve Not Available [facility] [address], [place], [address], 11/17/2022 18:40:51 11/17/19 23 11/17/2022 urina lysis , dipst ick Unknown Analyte Yellow Not Available thelma [address], [place], [address], 11/17/2022 18:40:51 11/17/19 23 11/17/2022 urina lysis , dipst ick Unknown Analyte Clear Not Available thelma [address], [place], [address], 11/17/2022 18:40:51 11/17/19 23 11/17/2022 urina lysis , dipst ick Unknown Analyte Negati ve Not Available leena lee [address], [place], [address], 11/17/2022 18:40:51 11/17/19 23 11/17/2022 urina lysis , dipst ick Unknown Analyte Negati ve Not Available leena lee [address], [place], [address], 11/17/2022 18:40:51 11/17/19 23 11/17/2022 urina lysis , dipst ick Unknown Analyte Negati ve Not Available leena lee [address], [place], [address], 11/17/2022 18:40:51 11/17/19 23 11/17/2022 urina lysis , dipst ick Unknown Analyte 1.020 Not Available thelma [address], [place], [place], [address], 11/17/2022 18:40:51 11/17/19 23 11/17/2022 urina lysis , dipst ick Unknown Analyte Negati ve Not Available leena lee [address], [place], [place], [address], 11/17/2022 18:40:51 11/17/19 23 11/17/2022 urina lysis , dipst ick Unknown Analyte 7.0 Not Available thelma [address], [place], [address], 11/17/2022 18:40:51 11/17/19 23 11/17/2022 urina lysis , dipst ick Unknown Analyte Negati ve Not Available leena lee [address], [place], [address], 11/17/2022 18:40:51 11/17/19 23 11/17/2022 urina lysis , dipst ick Unknown Analyte 0.2 E.U./d L Not Available leena lee [address], [place], [address], 11/17/2022 18:40:51 11/17/19 23 11/17/2022 urina lysis , dipst ick Unknown Analyte Negati ve Not Available leena lee [address], [place], [address], 11/17/2022 18:40:51 11/17/19 23 11/17/2022 urina lysis , dipst ick Unknown Analyte Negati ve Not Available leena lee [address], [place], [address], 11/17/2022 18:40:51 Result Notes None recorded. Problems Name Problem SNOMED Code Status Onset Date Resolution Date Notes Provider Name and Address Organization Details Recorded Time Insomnia 435854556 Active 2021 EDIE Rivera - [facility] 17:56:19 Depressive disorder 56346632 Active 2021 JAZMIN gaspar PA - [facility] 17:56:26 Bipolar disorder 51807725 Active 2021 JAZMIN KUMAR null, PA - [facility] 2 17:56:36 Migraine 88219549 Active 2021 JAZMIN KUMAR null, PA - [facility] 2 17:56:43 Gastroesophage al reflux disease 448619177 Active 2021 JAZMIN KUMAR null, PA - [facility] 2 17:56:49 Asthma 284394614 Active 2021 JAZMIN KUMAR null, PA - [facility] 2 17:56:57 Constipation 17491888 Active 2021 JAZMIN KUMAR null, PA - [facility] 2 17:57:06 Problem Notes None recorded. Medical Equipment None Reported. Allergies Allergen ID Allergen Name Allergen Category Reaction Reaction Severity Criticality Documentation Date Start Date Code Code System Note Provider Name and Address Organization Details Recorded Time 04541 Miralax medicatio n Not available Not available Not available 09/20/2022 18741 5 RxNorm JAZMIN KUMAR null, PA - [facility] 2 17:54:12 55352 amoxicill in medicatio n Not available Not available Not available 09/20/2022 723 RxNorm JAZMIN BRUNOEY null, PA - [facility] 2 17:54:16 92552 Product containin g penicilli n (product) medicatio n Not available Not available Not available 09/20/2022 38880 8001 SNOMED JAZMIN BRUNOEY null, PA - [facility] 2 17:54:22 94965 sulindac medicatio n Not available Not available Not available 09/20/2022 18147 RxNorm JAZMIN KUMAR null, PA - [facility] 2 17:54:29 32857 sennoside s, DETENTION medicatio n Not available Not available Not available 09/20/2022 37874 RxNorm JAZMIN KUMAR null, [facility] - [facility] [...] Updated DateTime 09/20/2022 162.56 cm 35.9 kg/m2 81038.81 g JAZMIN IRIZARRY - [facility] 09/20/2022 [...] Updated DateTime 3 162.56 cm 35.9 kg/m2 85254.8 1 g 10 99 % 99 % 81 /min 20 /min 97.8 [degF] 147 mm[Hg] 98 mm[Hg] Maeve Bell PA - [facility] 3 19:44:52 Date Recorded Systolic blood pressure Diastolic blood pressure Provider Name and Address Organization Details Last Updated DateTime 11/02/2022 132 mm[Hg] 84 mm[Hg] EDIE STEVE [facility] For[facility] [place], [address], [place] - [facility] 11/02/2022 20:13:06 Date Recorded Body height Body mass index (BMI) Body weight Pain severity Cruz-Marcus FACES pain rating scale Oxygen saturation Oxygen saturation in Arterial blood by Pulse oximetry Heart rate Respiratory rate Body temperature Systolic blood pressure Diastolic blood pressure Provider Name and Address Organization Details Last Updated DateTime 3 162.56 cm 35.9 kg/m2 72769.8 1 g 5 97 % 97 % 95 /min 18 /min 97.9 [degF] 143 mm[Hg] 88 mm[Hg] Maeve Bell [place] - [facility] 3 18:40:21 Social History Question Answer Notes LastModified by Organizat ion Details LastModified Time Tobacco Smoking Status Former Smoker JAZMIN gaspar PA - [facility] 09/20/2022 17:57:37 What Is Your Level Of Alcohol Consumption? None [email or web address] Information not available 09/20/2022 When Did You Quit Smoking? 1-5yearssin celastcigar ette [email or web address] Information not available 09/20/2022 Do You Use Any Illicit Or Recreational Drugs? No [email or web address] Information not available 09/20/2022 Have You Recently Traveled Abroad? No [email or web address] Information not available 09/20/2022 Do You Or Have You Ever Used Any Other Forms Of Tobacco Or Nicotine? No [email or web address] Information not available 09/20/2022 Sex: Unknown Functional Status None recorded. Mental Status None recorded. Family History Relationship Description Onset Age of this Age Resolved Age Notes LastModified by Organization Details LastModified Time Father No current problems or disability [email or web address] Not available 09/20 17:57:14 Mother No current problems or disability [email or web address] Not available 09/20 17:57:14 Medical History No [...] SNOMED-CT Code Diagnosis ICD10 Code Diagnosis Note [id number] [facility] [address] [place] [address] 03/01/2018 19:08:03 03/01/2018 20:09:30 [id number] [facility] [address] [place] [address] 04/20/2021 11:47:11 04/20/2021 12:34:46 [id number] EDIE Robles [facility] [address] [place] [address] 09/20/2022 17:17:57 09/20/2022 18:38:19 Influenza caused by Influenza A virus 027583274 J09.X2 [id number] [facility] [address] [place] [address] 11/02/2022 19:02:21 11/02/2022 20:15:12 Dysuria 03812363 R30.0 [id number] Sanya Suárez, REDUCTION FURNACE OPERATOR 2[facility] [address] [address] 11/17/2022 16:39:43 11/17/2022 19:10:36 Acute urinary tract infection 901802462 N39.0 Health Concerns Section Related Observation LastModified by Organization Detai ls LastModified Time None Recorded Concern Status LastModified by Organization Details LastModified Time None Recorded Advance Directives Directive None Recorded Payers Encounter Date Sequence Insurance Name Policy Number Policy Tavarez Covered Member ID Tavarez Member ID Guarantor Name 03/01/2018 1 [facility] (MEDICAID HMO) MARY JANE Cartwright [id number] Lidmary Caregiver 04/20/2021 1 [facility] NET [facility] (MEDICAID HMO) MARY JANE Cartwright [id number] Lidmary Caregiver 09/20/2022 1 [facility] (MEDICAID HMO) MARY JANE Cartwrigth [id number] Lidmary Caregiver 11/02/2022 1 [facility] (MEDICAID HMO) MARY JANE Cartwright [id number] Lidmary Caregiver 11/17/2022 1 [facility] (MEDICAID HMO) MARY JANE Cartwright [id number] Lidmary Caregiver Notes Date Note Type Note Provider Name and Address Organization Details Recorded Time 2 text/html Sore throatReported bypatient.Notes:Pt and caregiver report cough, sore throat, congestion, fatigue x 3-4 days. Taking OTC naproxen and using albuterol as previously prescribed. Denies fever, SOB, wheezing currently. EDIE Robles [address] [place], [address], [place] - [facility] 09/20/2022 18:43:28 3 [...] Suárez NP [address] [place], [address], PA - [facility] 11/17/2022 19:08:05 OBGyn Episode No OBEpisode recorded.
--- OUTSIDE RECORDS SUMMARY | 2024-11-22 15:38 | XMS_ITS | Clinical Summary ---
Author Organization [employer] it Address [address] [place] [address] Care Team Providers Care Auto Headlight Mechanic Name Role Phone Fernandez Tyler MD Primary Care Provider [phone] Surgical History Surgery Date Site/Laterality Comments BREAST [...] age to complete this topic Care Teams Auto Headlight Mechanic Relationship Specialty Start Date End Date Fernandez Tyler MD [address] [place] [address] Drive [address] [place] [address] PCP - General Internal Medicine 03/19/14
--- NOTE | 2024-11-22 15:40 | HO.NEPHOV ---
Vital Signs 11/22/24 15:43 Height 5 ft 3 in Weight 233 lb BMI 41.3 BP 210/120 H Blood Pressure Location Lt brachial Position Sitting Pulse 101 H Pulse Source Pulse Oximeter Pulse Oximetry (%) 98 Oxygen Delivery Method Room Air Intake Visit Reasons: 6wks follow-up No labs/Conf Mechanical Manufacturing Engineer Required: No Accompanied by: Guardian Allergies amoxicillin [AMOXICILLIN] Allergy (Severe, Verified 11/22/24 15:43) ANAPHYLAXIS, swelling Penicillins [PENICILLINS] Allergy (Severe, Verified 11/22/24 15:43) ANAPHYLAXIS polyethylene glycol 3350 [From MIRALAX] Allergy (Severe, Verified 11/22/24 15:43) ANAPHYLAXIS sulindac [SULINDAC] Allergy (Severe, Verified 11/22/24 15:43) SWELLING senna Allergy (Intermediate, Verified 11/22/24 15:43) Unknown seafood Allergy (Verified 11/22/24 15:43) Hives HPI Comments Details: Cassidy is a 34 year old patient with hypertension who is currently on Verapamil 240 mg daily. She also takes Clonidine at night for mental health reasons. She does not check/ monitor her BP at home. She has no history of diabetes mellitus, palpitation, orthostasis. She has high BMI and is not very strict with low-sodium diet. She has no history of glomerular diseases. Her renal function is normal. She has no history of proteinuria. She is compliant with her medications. She takes nonsteroidal anti-inflammatories as needed. She denies chest pain, shortness of breath, proximal nocturnal dyspnea, orthopnea, pedal edema, hematuria, or renal calculi. She feels tired in the mornings when she wakes up and does not feel rested. [facility] Medical History Breast mass, right Morbid obesity with BMI of 40.0-44.9, adult Hypertension Annual visit for general adult medical examination with abnormal findings Heart murmur, systolic Breast pain Right Achilles tendinitis Erythema intertrigo External hemorrhoids Bleeding hemorrhoids Vitamin D deficiency Heel callus Mild intermittent asthma in adult without complication Ex-cigarette smoker Motion sickness Mild intellectual disability Porcelain gallbladder Migraine Depression with anxiety Obesity Dysmenorrhea 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 Brother No problems noted. Brother No problems noted. 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 Cognitive needs: No Hearing needs: No Vision needs: Yes Female Reproductive History Menstrual Age of Menarche: 13 Review of Systems Const All systems reviewed & are unremarkable except as noted in HPI and below Physical Exam Vital Signs: Last Vital Signs Pulse 101 H 11/22/24 15:43 BP 210/120 H 11/22/24 15:43 Pulse Ox 98 11/22/24 15:43 Oxygen Delivery Method Room Air 11/22/24 15:43 BMI result Body Mass Index 41.3 Const General: comfortable and no acute distress Orientation/consciousness: patient oriented x3 HEENT Head: Yes normocephalic Mouth: Normal oral and palatal mucosa present Eyes EOM: EOMs intact bilaterally Neck Neck: Yes supple Resp Auscultation: clear to auscultation bilaterally Cardio Jugular venous distension: no JVD Rate: regular rate GI Palpation (GI): Soft to palpation Auscultation: normal bowel sounds General: Yes no CVA tenderness Back/Spine/Pelvis Back: no CVA tenderness Skin General skin exam: no rashes or lesions noted Neuro General: patient oriented x3 and moves all extremities Extrem General: Yes no pedal edema Results Reviewed Nephrology Results: No Data to Display Assessment & Plan Assessment & Plan (1) Hypertension: Code(s): I10 - Essential (primary) hypertension Category: Medical Qualifiers: Hypertension type: primary hypertension Qualified Code(s): I10 - Essential (primary) hypertension Plan Cassidy has hypertension. She has high BMI. She is at risk for secondary FSGS. Her renal functions are normal. She is not a diabetic. She does not monitor blood pressure at home. She is not compliant with low-sodium diet. She has symptoms suggestive of sleep apnea. Doppler of her renal arteries was negative. She was encouraged to lose weight and maintain low-sodium diet. She will benefit from sleep study. I increased her Verapamil at the last visit which I may switch to Diltiazem. I started her on Spironolactone 25 mg daily. Follow up labs ordered. All these have been discussed in detail. Follow up given Orders: Orders Electrolytes 2 Months I10 - Essential (primary) hypertension Metanephrines, Plasma 2 Months I10 - Essential (primary) hypertension Blood Urea Nitrogen 2 Months I10 - Essential (primary) hypertension Creatinine 2 Months I10 - Essential (primary) hypertension Medications: New spironolactone 25 mg PO DAILY 30 tabs 3RF Coding Level of Care Code Est Pt Level 4 (01882) Diagnoses Primary hypertension I10 Hypertension type: primary hypertension
[2024-11-22 15:43] VITALS: BP 210/120; PULSE 101; O2SAT 98; BMI 41.3
== END 2024-11-22 16:14 | disposition home or self-care (01) ==
PROVIDERS: PCP Internal Medicine; Visit Provider Internal Medicine Nephrology
DX: I10 Essential (primary) hypertension (principal)
CPT/HCPCS: 99214

== ENCOUNTER → 2024-11-22 15:36 | Outpatient (BNVA) | payer OTHER, SELFPAY | PROVIDERS: PCP Internal Medicine; Visit Provider Internal Medicine Nephrology | DX: I10 Essential (primary) hypertension (principal) | CPT/HCPCS: 99212 ==

== ENCOUNTER 2024-11-28 08:33 | Outpatient (REF) | payer OTHER, SELFPAY ==
--- OUTSIDE RECORDS SUMMARY | 2024-11-28 10:08 | XMS_ITS | Clinical Summary ---
Author Organization [facility] it Address [address] [place] [address] Care Team Providers Care Continuous Dryout Operator Name Role Phone Fernandez Tyler MD Primary Care Provider [phone] Surgical History Surgery Date Site/Laterality Comments BREAST [...] age to complete this topic Care Teams Continuous Dryout Operator Relationship Specialty Start Date End Date Fernandez Tyler MD [address] [place] [address] Drive [address] [place] [address] PCP - General Internal Medicine 03/19/14
== END 2024-11-28 08:34 | disposition home or self-care (01) ==
LOC: HO.LAB 08:33
PROVIDERS: PCP Internal Medicine; Visit Provider Advanced Practice Midwife
DX: N64.89 Other specified disorders of breast (principal); R30.0 Dysuria; Z20.2 Contact with and (suspected) exposure to infections with a predominantly sexual mode of transmission; Z98.890 Other specified postprocedural states
CPT/HCPCS: 81003; 81025; 99212; 99459

== ENCOUNTER 2024-11-28 08:33 | Outpatient (AMB) | payer OTHER, SELFPAY ==
--- NOTE | 2024-11-28 08:36 | MHC.OFFVIS ---
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 Ria Drying Supervisor: Drying Supervisor Present (Bri) Accompanied by: Other Relationship Allergies amoxicillin [AMOXICILLIN] Allergy (Severe, Verified 11/28/24 08:37) ANAPHYLAXIS, swelling Penicillins [PENICILLINS] Allergy (Severe, Verified 11/28/24 08:37) ANAPHYLAXIS polyethylene glycol 3350 [From MIRALAX] Allergy (Severe, Verified 11/28/24 08:37) ANAPHYLAXIS sulindac [SULINDAC] Allergy (Severe, Verified 11/28/24 08:37) SWELLING senna Allergy (Intermediate, Verified 11/28/24 08:37) Unknown seafood Allergy (Verified 11/28/24 08:37) Hives HPI Comments Details: Patient is here today for a follow up breast imaging, post status post right breast biopsy, accompanied by her detentionhome energy rater, Ria. Off control due to hypertension. Admits to unprotected intimacy with a male partner in September, he has male partners. No itching, odors, unusual discharge, pelvic pain, occasional stinging with urination. She reports the breast area is well healed but remains slightly tender. [facility] Medical History (Updated 11/28/24 @ 11:21 by Debbie Franco CNM) Possible exposure to STD Breast mass, right Morbid obesity with BMI of 40.0-44.9, adult Hypertension Annual visit for general adult medical examination with abnormal findings Heart murmur, systolic Breast pain Right Achilles tendinitis Erythema intertrigo External hemorrhoids Bleeding hemorrhoids Vitamin D deficiency Heel callus Mild intermittent asthma in adult without complication Ex-cigarette smoker Motion sickness Mild intellectual disability Porcelain gallbladder Migraine Depression with anxiety Obesity Dysmenorrhea 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 Brother No problems noted. Brother No problems noted. 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 Cognitive needs: No Hearing needs: No Vision needs: Yes Female Reproductive History Menstrual Age of Menarche: 13 Review of Systems Const All systems reviewed & are unremarkable except as noted in HPI and below Reports no additional complaints Skin/Breast Reports system reviewed and no additional complaints, except as documented and Reports as per HPI Physical Exam Vital Signs: Last Vital Signs BP 152/100 H 11/28/24 08:39 Const General: cooperative, healthy appearing and no acute distress Orientation/consciousness: patient oriented x3 Chest Other: No unusual findings, area well healed Breast/axilla inspection: normal inspection of the breasts and normal inspection of the axillae Breast/axilla palpation: normal palpation of the breasts GI Inspection: Yes normal to inspection Palpation (GI): Soft to palpation and Other GI palpation findings present (Nontender) Rectal Exam - Female: visual inspection normal General: Yes bladder normal to palpation External Female Exam: normal appearance of the urethra Speculum Exam - Vagina: normal appearance of the vagina, normal palpation and normal vaginal discharge Speculum Exam - Cervix: normal appearance of the cervix and normal palpation Bimanual exam- vagina & uterus: normal bimanual exam, normal palpation, uterine size normal, bladder normal to palpation, normal palpation, uterine shape normal and non-tender Bimanual Exam- Adnexa, other: normal adnexae Skin General skin exam: no rashes or lesions noted Neuro General: patient oriented x3 Results AMB Test Urine AMB Test Urine Negative Last Edit by STEPHIE Kiran on 11/28/24 09:23 AMB Urinalysis, Automated UA Leukoctes 0 Elpidio/uL Last Edit by STEPHIE Kiran on 11/28/24 09:23 UA Nitrite Negative Last Edit by STEPHIE Kiran on 11/28/24 09:23 UA Urobilinogen 0 mg/dL Last Edit by STEPHIE Kiran on 11/28/24 09:23 UA Protein 3 mg/dL Last Edit by Honey Cain, A on 11/28/24 09:23 UA pH 6.0 Last Edit by Honey Cain, A on 11/28/24 09:23 UA Blood 0 Estevan/uL Last Edit by Honey Cain, A on 11/28/24 09:23 UA Specific [place] 1.020 Last Edit by Honey Cain A on 11/28/24 09:23 UA Ketone Negative Last Edit by Honey Cain, A on 11/28/24 09:23 UA Bilirubin 0 mg/dL Last Edit by Honey Cain A on 11/28/24 09:23 UA Glucose 0 mg/dL Last Edit by Honey Cain A on 11/28/24 09:23 Results Reviewed Results Reviewed: Laboratory Last Values Urine pH (Auto) 6.0 11/28/24 09:18 Specific [place] (Auto) 1.020 11/28/24 09:18 Urine Protein (Auto) 3 mg/dL 11/28/24 09:18 Glucose (UA)(Auto) 0 mg/dL 11/28/24 09:18 Urine Ketones (Auto) Negative 11/28/24 09:18 Urine Blood (Auto) 0 Estevan/uL 11/28/24 09:18 Urine Nitrite (Auto) Negative 11/28/24 09:18 Urine Bilirubin (Auto) 0 mg/dL 11/28/24 09:18 Urine Urobilinogen (Auto) 0 mg/dL 11/28/24 09:18 Leukocyte Esterase (Auto) 0 Elpidio/uL 11/28/24 09:18 Tst Clinic Negative 11/28/24 09:18 Name: Cassidy Cartwright Age/Sex: 34/F Attending: Devan Sullivan MD : 1990 Submitted by: Suze Dillon DO Copies to: Mindy Hutchinson MD MR #: [id number] Devan Sullivan MD Status: DEP REF Collected: 11/14/24 Location: [facility] Received: 11/14/24 Diagnosis Breast, right mass at 11 o'clock, biopsy: 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 Clinical History Right breast mass 11 o'clock ? Ca vs other Microscopic Description Microscopic sections reviewed. Material Received Right breast mass 11 o'clock ? Ca vs other Gross Description Received in formalin labeled ?right breast 11:00 o'clock? are 6 cylindrical portions of pink-white and yellow-white fibrofatty breast tissue ranging from 0.3-1.0 cm in length all with a diameter of 0.2 cm which are entirely submitted for microscopic examination, 6 pieces in cassette A. smc Copies To Mindy Hutchinson MD [facility] [address] Devan Sullivan MD [facility] Sur[facility] [address] [place] [id number] Suze Dillon DO [facility] [place] [address] [place] [id number] Patient: Cassidy Cartwright Age/Sex: 34/F MR#: [id number] Page 1 of 2 Surgical Pathology [id number] NOTE: Unless otherwise stated, all tissue is formalin-fixed and paraffin-embedded. Some or all of the immunohistochemical tests reported herein may have been developed and their performance characteristics determined by [facility]. They have not been cleared or approved by the U.S. Food and Drug Administration (FDA). However, the FDA has determined that such clearance or approval is not necessary. This laboratory is certified under the Clinical Laboratory Improvement Amendments of 1988 (CLIA) as qualified to perform high complexity clinical laboratory testing. Electronically Signed By: Pablo Perales MD 11/15/24 0371 Patient: Cassidy Cartwright Age/Sex: 34/F MR#: [id number] Assessment & Plan Assessment & Plan (1) Possible exposure to STD: Code(s): Z20.2 - Contact with and (suspected) exposure to infections with a predominantly sexual mode of transmission Category: Medical Plan: chlamydia, BV panel obtained, await results for plan of care. Advised to use condoms consistently with intimacy. UPT-negative. Urinedip-protein 3+. (2) Pseudoangiomatous stromal hyperplasia of breast: Code(s): N64.89 - Other specified disorders of breast Category: Medical (3) Status post breast biopsy: Code(s): Z98.890 - Other specified postprocedural states (4) control counseling: Code(s): Z30.09 - Encounter for other general counseling and advice on contraception Plan: Discuss options of progesterone only control: History of Depo-Provera in the past and had a rash with it's use. Options to include Nexplanon device, POP, Mirena or Kyleena IUD, ParaGard IUD. She is not interested in the IUD at this time. Inpatient pharmacist Chio is going to research the cross reaction of Fillers related to MiraLax product. Patient will return to the office in 2-4 weeks for a follow up control consult. Option of choice will be pending literature research. But if unable to take the progesterone only pill she would consider the Nexplanon device again, she was not happy with her scarring on her arm from her previous device. Plan Patient advised to report any increase in pain, swelling or redness of the breast. The patient expressed understanding and agreement with the plan of care. All of her questions and concerns were addressed to the best of my ability. This note is constructed using voice recognition software. While every effort has been made to ensure accuracy, video control engineer errors may have been included. Orders: Orders AMB HCG Urine Test Today Z32.02 - Encounter for test, result negative AMB Urinalysis Automated Today R30.0 - Dysuria Hepatitis C Antibody Reflex Today Z20.2 - Contact with and (suspected) exposure to infections with a predominantly sexual mode of transmission Syphilis Screen Today Z20.2 - Contact with and (suspected) exposure to infections with a predominantly sexual mode of transmission Bacterial Vaginosis Panel Today Z20.2 - Contact with and (suspected) exposure to infections with a predominantly sexual mode of transmission CT NG by PCR Today Z20.2 - Contact with and (suspected) exposure to infections with a predominantly sexual mode of transmission HIV Ab/Ag Today Z20.2 - Contact with and (suspected) exposure to infections with a predominantly sexual mode of transmission Hepatitis B Core Antibody Today Z20.2 - Contact with and (suspected) exposure to infections with a predominantly sexual mode of transmission Coding Level of Care Code Est Pt Level 3 (60317) Diagnoses Possible exposure to STD Z20.2 Pseudoangiomatous stromal hyperplasia of breast N64.89 Status post breast biopsy Z98.890 control counseling Z30.09
[2024-11-28 08:39] VITALS: BP 152/100
--- OUTSIDE RECORDS SUMMARY | 2024-11-28 09:01 | XMS_ITS | Data Portability ---
Author Organization EDIE zelaya [facility] Address [address] [place] [address] Care Team Providers Care Manager Operations Name Role Phone DANTE MARTINES Primary Care Provider Assessment No assessment recorded. Plan of Treatment Reminders Order Date Submit Date Provider Last Modified By Organization Details Last Modified Time Details Appointments None recorded. Lab urinalysis , dipstick 2022 023 [email or web address] [facility], [address] [place] [address], [address], 3 19:07:26 test, urine 2022 023 [email or web address] [facility], [address] [place] [address], [address], 3 19:07:26 culture, urine 2022 023 [email or web address] [facility], [address] [place] [address], [place], [address], 3 19:39:46 urinalysis , dipstick 2022 023 [email or web address] [facility], [address] [place] [address], [address], 3 20:12:31 test, urine 2022 023 [email or web address] [facility], [address] [place] [address], [address], 3 20:12:31 culture, urine 2022 023 [email or web address], [address] [place] [address], [place], [address], 3 15:51:57 rapid strep group A, throat 2021 022 [email or web address] 5 _[facility], [address] [place] [address], [address], 2 18:30:46 rapid flu (A+B) 2021 022 [email or web address] 5 _[facility], [address] [place] [address], [place], [address], 2 18:30:46 rapid SARS CoV 2 Ag, QL IA, respirator y specimen 2021 022 [email or web address] 5 _[facility], [address] [place] [address], [place], [address], 2 18:30:46 Referral None recorded. Procedures None recorded. Surgeries None recorded. Imaging None recorded. Medication Orders Macrobid [address] [id number], [address] [facility], [place], [address], 3 19:07:28 nitrofuran toin monohydrat e/macrocry stals 100 mg capsule 2022 023 kevin [facility] #[id number], [address] [facility], [place], [address], 3 18:28:08 acetaminop hen 325 mg tablet [address] [facility][id number], [address] [facility], [place], [address], 2 18:43:07 Patient TargetsNo targets recorded. Patient Instructions Encounter Date Encounter Id Patient Instructions Last Modified By Organization Details Last Modified Time 09/20/2022 [id number] sore throat: rody pate instructions [email or web address] Not available 09/20/2022 18:30:46 [facility] department if you develop ANY [...] without a prescription. Drink plenty of water. [email or web address] Not available 09/20/2022 18:25:38 11/02/2022 [id number] urinary tract infection in women information [email or web address] Not available 11/02/2022 20:12:31 You are going [...] antibiotic was prescribed. Thank you for using [facility] - please don't hesistate to call our office if you have any questions or concerns. [email or web address] Not available 11/02/2022 20:12:18 11/17/2022 [id number] We recommend you get a repeat urinalysis [...] men Unknown Analyte negati ve Not Available [address], [address], 09/20/2022 17:57:52 09/20/20 22 09/20/2022 rapid strep group A, throa t Unknown Analyte negati ve Not Available [address] [place] [address], [address], 09/20/2022 17:52:10 09/20/20 22 09/20/2022 rapid flu (A+B) Unknown Analyte positi ve Not Available [address] [place] [address], [address], 09/20/2022 17:57:47 09/20/20 22 09/20/2022 rapid flu (A+B) Unknown Analyte negati ve Not Available [address] [place] [address], [address], 09/20/2022 17:57:47 11/02/19 23 11/02/2022 pregn angela test, urine Unknown Analyte Normal = Negati ve Not Available 2099leena lee [address], [place], [address], 11/02/2022 20:03:07 11/02/19 23 11/02/2022 pregn angela test, urine Unknown Analyte negati ve Not Available 2099leena lee [address], [place], [address], 11/02/2022 20:03:07 11/02/19 23 11/02/2022 urina lysis , dipst ick Unknown Analyte Normal = light yellow Not Available 2099leena lee [address], [place], [address], 11/02/2022 19:48:57 11/02/1911/02/2022 urina lysis , dipst ick Unknown Analyte Light Yellow Not Available 2099leena lee [address], [place], [address], 11/02/2022 19:48:57 11/02/19 23 11/02/2022 urina lysis , dipst ick Unknown Analyte Normal = clear Not Available leena lee [address], [place], [place], [address], 11/02/2022 19:48:57 11/02/19 23 11/02/2022 urina lysis , dipst ick Unknown Analyte Clear Not Available [address], [place], [place], [address], 11/02/2022 19:48:57 11/02/19 23 11/02/2022 urina lysis , dipst ick Unknown Analyte Normal = negati ve Not Available leena lee [address], [place], [place], [address], 11/02/2022 19:48:57 11/02/19 23 11/02/2022 urina lysis , dipst ick Unknown Analyte Negati ve Not Available 2099leena lee [address], [place], [address], 11/02/2022 19:48:57 11/02/19 23 11/02/2022 urina lysis , dipst ick Unknown Analyte Normal = Negati ve Not Available 2099leena [address], [place], [address], 11/02/2022 19:48:57 11/02/1911/02/2022 urina lysis , dipst ick Unknown Analyte Negati ve Not Available [facility] [address], [place], [address], 11/02/2022 19:48:57 11/02/19 23 11/02/2022 urina lysis , dipst ick Unknown Analyte Normal = Negati ve Not Available leena [address], [place], [address], 11/02/2022 19:48:57 11/02/1911/02/2022 urina lysis , dipst ick Unknown Analyte Negati ve Not Available leena [address], [place], [address], 11/02/2022 19:48:57 11/02/19 23 11/02/2022 urina lysis , dipst ick Unknown Analyte Normal = 1.010, 1.015, 1.020 Not Available [facility] [address], [place], [address], 11/02/2022 19:48:57 11/02/19 23 11/02/2022 urina lysis , dipst ick Unknown Analyte 1.020 Not Available [address] [place] [address] Drive, [place], [address], 11/02/2022 19:48:57 11/02/1911/02/2022 urina lysis , dipst ick Unknown Analyte Normal = Negati ve Not Available leena lee [address], [place], [address], 11/02/2022 19:48:57 11/02/19 23 11/02/2022 urina lysis , dipst ick Unknown Analyte Negati ve Not Available leena pe emem[address], [place], [address], 11/02/2022 19:48:57 11/02/1911/02/2022 urina lysis , dipst ick Unknown Analyte Normal = 6.5, 7.0, 7.5, 8.0 Not Available leena lee [address], [place], [address], 11/02/2022 19:48:57 11/02/19 23 11/02/2022 urina lysis , dipst ick Unknown Analyte 6.5 Not Available thelma [address], [place], [address], 11/02/2022 19:48:57 11/02/1911/02/2022 urina lysis , dipst ick Unknown Analyte Normal = Negati ve Not Available [facility]ena pe [facility], [place], [address], 11/02/2022 19:48:57 11/02/1911/02/2022 urina lysis , dipst ick Unknown Analyte Negati ve Not Available leena pe emem[address], [place], [address], 11/02/2022 19:48:57 02/10/21 2211/02/2022 urina lysis , dipst ick Unknown Analyte Normal = 0.2, 1.0 Not Available leena lee [address], [place], [address], 11/02/2022 19:48:57 11/02/19 23 11/02/2022 urina lysis , dipst ick Unknown Analyte 0.2 E.U./d L Not Available [facility] [address], [place], [address], 11/02/2022 19:48:57 11/02/1911/02/2022 urina lysis , dipst ick Unknown Analyte Normal = Negati ve Not Available [facility] [address], [place], [place], [address], 11/02/2022 19:48:57 11/02/1911/02/2022 urina lysis , dipst ick Unknown Analyte Negati ve Not Available leena [address], [place], [address], 11/02/2022 19:48:57 11/02/1911/02/2022 urina lysis , dipst ick Unknown Analyte Normal = Negati ve Not Available [facility] [address], [place], [address], 11/02/2022 19:48:57 11/02/1911/02/2022 urina lysis , dipst ick Unknown Analyte Negati ve Not Available [address], [place], [address], 11/02/2022 19:48:57 11/17/19 23 11/17/2022 pregn angela test, urine Unknown Analyte Normal = Negati ve Not Available [address], [place], [address], 11/17/2022 18:41:03 11/17/19 23 11/17/2022 pregn angela test, urine Unknown Analyte negati ve Not Available [facility] [address], [place], [address], 11/17/2022 18:41:03 11/17/19 23 11/17/2022 urina lysis , dipst ick Unknown Analyte Normal = light yellow Not Available [address] [place] [address], [place], [address], 11/17/2022 18:40:51 11/17/19 23 11/17/2022 urina lysis , dipst ick Unknown Analyte Normal = clear Not Available [address], [place], [address], 11/17/2022 18:40:51 11/17/19 23 11/17/2022 urina lysis , dipst ick Unknown Analyte Normal = negati ve Not Available [address], [place], [address], 11/17/2022 18:40:51 11/17/19 23 11/17/2022 urina lysis , dipst ick Unknown Analyte Normal = Negati ve Not Available [address], [place], [address], 11/17/2022 18:40:51 11/17/19 23 11/17/2022 urina lysis , dipst ick Unknown Analyte Normal = Negati ve Not Available [address], [place], [address], 11/17/2022 18:40:51 11/17/19 23 11/17/2022 urina lysis , dipst ick Unknown Analyte Normal = 1.010, 1.015, 1.020 Not Available leena lee em[address], [place], [address], 11/17/2022 18:40:51 11/17/19 23 11/17/2022 urina lysis , dipst ick Unknown Analyte Normal = Negati ve Not Available [facility] [address], [place], [address], 11/17/2022 18:40:51 11/17/19 23 11/17/2022 urina lysis , dipst ick Unknown Analyte Normal = 6.5, 7.0, 7.5, 8.0 Not Available 2099leena lee [address], [place], [address], 11/17/2022 18:40:51 11/17/19 23 11/17/2022 urina lysis , dipst ick Unknown Analyte Normal = Negati ve Not Available [facility] [address], [place], [address], 11/17/2022 18:40:51 11/17/19 23 11/17/2022 urina lysis , dipst ick Unknown Analyte Normal = 0.2, 1.0 Not Available [facility]e [address], [place], [address], 11/17/2022 18:40:51 11/17/19 23 11/17/2022 urina lysis , dipst ick Unknown Analyte Normal = Negati ve Not Available 2099leena lee [address], [place], [address], 11/17/2022 18:40:51 11/17/19 23 11/17/2022 urina lysis , dipst ick Unknown Analyte Normal = Negati ve Not Available [facility]e [address], [place], [address], 11/17/2022 18:40:51 11/17/19 23 11/17/2022 urina lysis , dipst ick Unknown Analyte Yellow Not Available thelma [address], [place], [address], 11/17/2022 18:40:51 11/17/19 23 11/17/2022 urina lysis , dipst ick Unknown Analyte Clear Not Available thelma [address], [place], [address], 11/17/2022 18:40:51 11/17/19 23 11/17/2022 urina lysis , dipst ick Unknown Analyte Negati ve Not Available leena lee [address], [place], [address], 11/17/2022 18:40:51 11/17/19 23 11/17/2022 urina lysis , dipst ick Unknown Analyte Negati ve Not Available leena lee [address], [place], [address], 11/17/2022 18:40:51 11/17/19 23 11/17/2022 urina lysis , dipst ick Unknown Analyte Negati ve Not Available leena lee [address], [place], [address], 11/17/2022 18:40:51 11/17/19 23 11/17/2022 urina lysis , dipst ick Unknown Analyte 1.020 Not Available thelma [address], [place], [place], [address], 11/17/2022 18:40:51 11/17/19 23 11/17/2022 urina lysis , dipst ick Unknown Analyte Negati ve Not Available leena lee [address], [place], [place], [address], 11/17/2022 18:40:51 11/17/19 23 11/17/2022 urina lysis , dipst ick Unknown Analyte 7.0 Not Available thelma [address], [place], [address], 11/17/2022 18:40:51 11/17/19 23 11/17/2022 urina lysis , dipst ick Unknown Analyte Negati ve Not Available leena lee [address], [place], [address], 11/17/2022 18:40:51 11/17/19 23 11/17/2022 urina lysis , dipst ick Unknown Analyte 0.2 E.U./d L Not Available leena lee [address], [place], [address], 11/17/2022 18:40:51 11/17/19 23 11/17/2022 urina lysis , dipst ick Unknown Analyte Negati ve Not Available leena lee [address], [place], [address], 11/17/2022 18:40:51 11/17/19 23 11/17/2022 urina lysis , dipst ick Unknown Analyte Negati ve Not Available leena lee [address], [place], [address], 11/17/2022 18:40:51 Result Notes None recorded. Problems Name Problem SNOMED Code Status Onset Date Resolution Date Notes Provider Name and Address Organization Details Recorded Time Insomnia 172710871 Active 2021 EDIE Rivera - [facility] 17:56:19 Depressive disorder 97816401 Active 2021 JAZMIN gaspar PA - [facility] 17:56:26 Bipolar disorder 67902231 Active 2021 JAZMIN KUMAR null, PA - [facility] 2 17:56:36 Migraine 56134656 Active 2021 JAZMIN KUMAR null, PA - [facility] 2 17:56:43 Gastroesophage al reflux disease 212113348 Active 2021 JAZMIN KUMAR null, PA - [facility] 2 17:56:49 Asthma 652297270 Active 2021 JAZMIN KUMAR null, PA - [facility] 2 17:56:57 Constipation 10856672 Active 2021 JAZMIN KUMAR null, PA - [facility] 2 17:57:06 Problem Notes None recorded. Medical Equipment None Reported. Allergies Allergen ID Allergen Name Allergen Category Reaction Reaction Severity Criticality Documentation Date Start Date Code Code System Note Provider Name and Address Organization Details Recorded Time 34324 Miralax medicatio n Not available Not available Not available 09/20/2022 93978 5 RxNorm JAZMIN KUMAR null, PA - [facility] 2 17:54:12 39941 amoxicill in medicatio n Not available Not available Not available 09/20/2022 723 RxNorm JAZMIN BRUNOEY null, PA - [facility] 2 17:54:16 81691 Product containin g penicilli n (product) medicatio n Not available Not available Not available 09/20/2022 66323 8001 SNOMED JAZMIN BRUNOEY null, PA - [facility] 2 17:54:22 45993 sulindac medicatio n Not available Not available Not available 09/20/2022 09992 RxNorm JAZMIN KUMAR null, PA - [facility] 2 17:54:29 50389 sennoside s, [facility] medicatio n Not available Not available Not available 09/20/2022 96170 RxNorm JAZMIN KUMAR null, [facility] - [facility] [...] Updated DateTime 09/20/2022 162.56 cm 35.9 kg/m2 86953.81 g JAZMIN IRIZARRY - [facility] 09/20/2022 [...] Updated DateTime 3 162.56 cm 35.9 kg/m2 10962.8 1 g 10 99 % 99 % 81 /min 20 /min 97.8 [degF] 147 mm[Hg] 98 mm[Hg] Maeve Bell PA - [facility] 3 19:44:52 Date Recorded Systolic blood pressure Diastolic blood pressure Provider Name and Address Organization Details Last Updated DateTime 11/02/2022 132 mm[Hg] 84 mm[Hg] EDIE STEVE [facility] For[facility] TrejoValeriaDARRISU parker, [address], [place] - [facility] 11/02/2022 20:13:06 Date Recorded Body height Body mass index (BMI) Body weight Pain severity Cruz-Marcus FACES pain rating scale Oxygen saturation Oxygen saturation in Arterial blood by Pulse oximetry Heart rate Respiratory rate Body temperature Systolic blood pressure Diastolic blood pressure Provider Name and Address Organization Details Last Updated DateTime 3 162.56 cm 35.9 kg/m2 07561.8 1 g 5 97 % 97 % 95 /min 18 /min 97.9 [degF] 143 mm[Hg] 88 mm[Hg] Maeve Bell [place] - [facility] 3 18:40:21 Social History Question Answer Notes LastModified by Organizat ion Details LastModified Time Tobacco Smoking Status Former Smoker JAZMIN gaspar PA - [facility] 09/20/2022 17:57:37 What Is Your Level Of Alcohol Consumption? None [email or web address] Information not available 09/20/2022 When Did You Quit Smoking? 1-5yearssin celastcigar ette Information not available 09/20/2022 Do You Use Any Illicit Or Recreational Drugs? No [email or web address] Information not available 09/20/2022 Have You Recently Traveled Abroad? No [email or web address] Information not available 09/20/2022 Do You Or Have You Ever Used Any Other Forms Of Tobacco Or Nicotine? No [email or web address] Information not available 09/20/2022 Sex: Unknown Functional Status None recorded. Mental Status None recorded. Family History Relationship Description Onset Age of this Age Resolved Age Notes LastModified by Organization Details LastModified Time Father No current problems or disability Not available 09/20 17:57:14 Mother No current problems or disability [email or web address] Not available 09/20 17:57:14 Medical History No [...] SNOMED-CT Code Diagnosis ICD10 Code Diagnosis Note [id number] [facility] [address] [place] [address] 03/01/2018 19:08:03 03/01/2018 20:09:30 [id number] [facility] [address] [place] [address] 04/20/2021 11:47:11 04/20/2021 12:34:46 [id number] EDIE Robles [facility] [address] [place] [address] 09/20/2022 17:17:57 09/20/2022 18:38:19 Influenza caused by Influenza A virus 260596305 J09.X2 [id number] [facility] [address] [place] [address] 11/02/2022 19:02:21 11/02/2022 20:15:12 Dysuria 04666469 R30.0 [id number] Sanya Suárez, [employer] [address] [address] [address] 11/17/2022 16:39:43 11/17/2022 19:10:36 Acute urinary tract infection 328727131 N39.0 Health Concerns Section Related Observation LastModified by Organization Detai ls LastModified Time None Recorded Concern Status LastModified by Organization Details LastModified Time None Recorded Advance Directives Directive None Recorded Payers Encounter Date Sequence Insurance Name Policy Number Policy Tavarez Covered Member ID Tavarez Member ID Guarantor Name 03/01/2018 1 [facility] NET PLAN (MEDICAID HMO) MARY JANE Cartwright [id number] Lidmary Caregiver 04/20/2021 1 [facility] NET PLAN (MEDICAID HMO) MARY JANE Cartwright [id number] Lidmary Caregiver 09/20/2022 1 [facility] NET PLAN (MEDICAID HMO) MARY JANE Cartwright [id number] Lidmary Caregiver 11/02/2022 1 [facility] NET PLAN (MEDICAID HMO) MARY JANE Cartwright [id number] Lidmary Caregiver 11/17/2022 1 [facility] NET PLAN (MEDICAID HMO) MARY JANE Cartwright [id number] Lidmary Caregiver Notes Date Note Type Note Provider Name and Address Organization Details Recorded Time 2 text/html Sore throatReported bypatient.Notes:Pt and caregiver report cough, sore throat, congestion, fatigue x 3-4 days. Taking OTC naproxen and using albuterol as previously prescribed. Denies fever, SOB, wheezing currently. EDIE Robles [address] [place], [address], [place] - [facility] 09/20/2022 18:43:28 3 [...] Suárez NP [address] [place], [address], PA - [facility] 11/17/2022 19:08:05 OBGyn Episode No OBEpisode recorded.
--- OUTSIDE RECORDS SUMMARY | 2024-11-28 09:01 | XMS_ITS | Clinical Summary ---
Author Organization [facility] it Address [address] [place] [address] Care Team Providers Care Signs Sales Representative Name Role Phone Fernandez Tyler MD Primary Care Provider [phone] Surgical History Surgery Date Site/Laterality Comments BREAST [...] age to complete this topic Care Teams Signs Sales Representative Relationship Specialty Start Date End Date Fernandez Tyler MD [address] [place] [address] Drive [address] [place] [address] PCP - General Internal Medicine 03/19/14
== END 2024-11-28 09:40 | disposition home or self-care (01) ==
LOC: HO.HWS 08:33
PROVIDERS: PCP Internal Medicine; Visit Provider Advanced Practice Midwife
DX: Z20.2 Contact with and (suspected) exposure to infections with a predominantly sexual mode of transmission (principal); N64.89 Other specified disorders of breast; Z98.890 Other specified postprocedural states; Z30.09 Encounter for other general counseling and advice on contraception; Z32.02 Encounter for pregnancy test, result negative; R30.0 Dysuria
CPT/HCPCS: 99213

== ENCOUNTER 2024-11-28 09:18 | Outpatient (REF) | payer OTHER, SELFPAY ==
[2024-11-28 11:14] LABS: HBc Num1 0.38 S/CO (0.00-0.79); HIV AB/AG Nonreactive (Nonreactive); HIV Num 1 0.07 S/CO (0.00-0.99); Hepatitis B Core Antibody Nonreactive (Nonreactive); ~HepC Num1 0.09 S/CO (0.00-0.79); ~Hepatitis C Antibody Nonreactive (Nonreactive)
[2024-11-28 11:15] LABS: Syphilis Screen Nonreactive (Nonreactive)
[2024-11-29 10:37] LABS: Bacterial Vaginosis PCR NEGATIVE (Negative); Candida Group PCR NOT DETECTED (Not Detect); Candida glab krusei PCR NOT DETECTED (Not Detect); Trichomonas vaginalis PCR NOT DETECTED (Not Detect)
[2024-11-29 10:44] LABS: CT PCR NOT DETECTED (Not Detect.); NG PCR NOT DETECTED (Not Detect.)
== END 2024-11-28 09:19 | disposition home or self-care (01) ==
LOC: HO.LNP 09:18
PROVIDERS: Visit Provider Advanced Practice Midwife
DX: Z20.2 Contact with and (suspected) exposure to infections with a predominantly sexual mode of transmission (principal)
CPT/HCPCS: 81515; 86704; 86780; 86803; 87389; 87491; 87591

== ENCOUNTER 2024-11-29 20:42 | Inpatient (IN) | payer OTHER, SELFPAY ==
--- NOTE | 2024-11-29 | ECG_ITS ---
Test Reason : ELEVATED TROPONIN Blood Pressure : */* mmHG Vent. Rate : 100 BPM Atrial Rate : 100 BPM P-R Int : 148 ms QRS Dur : 78 ms QT Int : 374 ms P-R-T Axes : 49 47 18 degrees QTcB Int : 482 ms Normal sinus rhythm Prolonged QT Abnormal ECG When compared with ECG of 04-Oct-2024 20:42, No significant change was found Referred By: Generic ED Physician Electronically Signed By: Derrick Gutierrez
--- NOTE | ~2024-11-29 | CT_ITS ---
CLINICAL HISTORY: elevated trop CT angiogram chest/pulmonary arteries with contrast Multiplanar reconstructions and MIPS Comparison: None Findings: No filling defects are noted to suggest pulmonary embolus. Main pulmonary artery normal in caliber. Thoracic aorta normal caliber without dissection. Heart size normal. Great vessel origins patent. No coronary calcifications. No significant focal parenchymal abnormalities. No significant mediastinal or hilar adenopathy. No free pleural fluid. No acute bony abnormality noted. Impression: No evidence of pulmonary embolus This document has been electronically signed by: Dave Lincoln MD on 11/30/2024 00:07:16
[2024-11-29 20:50] VITALS: BP 191/116; BP 203/124; PULSE 105; PULSE 107; RESP 18; TEMP 36.4; O2SAT 100; O2SAT 99; BMI 44.3
[2024-11-29 20:59] VITALS: BP 217/125
[2024-11-29 22:26] LABS: MANUAL DIFF FLAG NO
[2024-11-29 22:27] LABS: Basophils Absolute Auto 0.1 X10*3/uL (0.0-0.2); Basophils Percent Auto 0.6 % (0-2); Eosinophils Absolute Auto 0.1 X10*3/uL (0.0-0.4); Eosinophils Percent Auto 0.5 % (0-4); Hematocrit 36.4 % (37.0-47.0); Hemoglobin 12.7 g/dl (12.0-16.0); Imm Gran Abs Auto 0.03 X10*3/uL (0.00-0.03); Imm Gran Pct Auto 0.3 % (0.0-0.4); Lymphocytes Absolute Auto 1.3 X10*3/uL (1.2-4.9); Mean Corpuscular HGB Conc 34.9 g/dl (31.0-35.0); Mean Corpuscular Volume 80.4 fL (80.0-98.0); Mean Platelet Volume 9.9 fL (9.4-12.3); Monocytes Absolute Auto 0.6 X10*3/uL (0.1-1.2); Monocytes Percent Auto 6.3 % (2-11); Neutrophils Absolute Auto 7.5 x10*3/uL (2.0-8.3); Neutrophils Percent Auto 78.3 % (45-73); Platelet Count 160 X10*3/uL (160-400); Red Blood Count 4.53 X10*6/uL (4.20-5.50); Red Cell Distribution Width 13.8 % (11.0-16.0); White Blood Count 9.6 X10*3/uL (4.8-10.8)
[2024-11-29 22:49] LABS: Alanine Aminotransferase 16 U/L (0-31); Albumin Level 4.5 g/dL (3.5-5.0); Alkaline Phosphatase 107 U/L (39-117); Anion Gap 12 (12-20); Aspartate Amino Transferase 17 U/L (5-31); Bilirubin Total 0.4 mg/dL (0.0-1.0); Blood Urea Nitrogen 11 mg/dL (9-16); Calcium 9.3 mg/dL (8.4-10.2); Carbon Dioxide 24 mmol/L (22-29); Chloride 110 mmol/L (96-108); Estimated Glomerular Filt Rate 37; Glucose Random 110 mg/dL (60-115); Lipase 33 U/L (8-78); Potassium 3.4 mmol/L (3.3-5.1); Sodium 143 mmol/L (135-145); Total Protein 7.8 g/dL (6.5-8.0)
[2024-11-29 22:58] LABS: Troponin-I High Sensitivity 108.9 ng/L (<3.5-17.0)
[2024-11-29] MEDS: iohexoL 350 MG/ML 100 ML INFUS..BTL 65 ML IV (23:31)
[2024-11-30] VITALS (8 sets, daily range): BP systolic 156–208; BP diastolic 86–125; PULSE 86–106; RESP 14–25; TEMP 36.1–37.2; O2SAT 97–99; BMI 41.0
[2024-11-30] MEDS: Aspirin 81 MG TAB.CHEW 324 MG PO (00:35)
--- NOTE | 2024-11-30 01:10 | PC.NURSE ---
2nd troponin drawn and sent
[2024-11-30 01:40] LABS: B Type Natriuretic Peptide 178 pg/mL (<100)
--- NOTE | 2024-11-30 01:45 | ED_ITS ---
HPI - General Adult General Chief complaint: Nausea/Vomiting/Diarrhea Stated complaint: dizzy nausea vision change, reaction to weed? Time Seen by Provider: 11/29/24 23:04 Source: patient Limitations: no limitations History of Present Illness ED Provider: Francie MELGOZA narrative: 34-year-old female with past medical history of hypertension, GERD, depression, anxiety, to actual disability presenting for chest pain lightheadedness. Patient states that she has been smoking marijuana the past 4 days and today after smoking she began experiencing lightheadedness, nausea, chest pain shortness of breath. She states that her symptoms have subsided however she still has mild chest discomfort. She is unsure whether the marijuana was contaminated. Related Data Home Medications ?Medication ?Instructions ?Recorded ?Confirmed polyvinyl alcohol 1.4 % eye drops 1 drp ophthalmic (eye) DAILY 07/06/21 10/31/24 (Artificial Tears (polyvinyl alcohol)) melatonin 5 mg tablet 5 mg PO BEDTIME 07/26/21 10/31/24 erythromycin 5 mg/gram (0.5 %) eye 1 appl ophthalmic (eye) DAILY 01/24/23 10/31/24 ointment sumatriptan succinate 50 mg tablet 50 mg PO DAILY PRN 11/22/24 trazodone 150 mg tablet 300 mg PO BEDTIME Insomnia 11/22/24 Previous Rx's ?Medication ?Instructions ?Recorded oxcarbazepine 600 mg tablet 600 mg PO BID #60 tabs 05/30/22 (Trileptal) hydrocortisone 1 % topical cream 1 appl topical TID PRN skin 06/16/23 (Preparation H Hydrocortisone) irritation/ painful hemorrhoid #28.4 grams albuterol sulfate 2.5 mg/3 mL 2.5 mg (3 mL) inhalation Q6H PRN 07/31/23 (0.083 %) solution for nebulization shortness of breath or wheezing #75 mL albuterol sulfate 90 mcg/actuation 2 puff inhalation Q6H PRN 07/31/23 aerosol inhaler bronchospasm #8.5 grams menthol-thymol topical liniment 1 appl topical TID PRN pain #480 mL 07/31/23 (Absorbine Jr. Original topical liniment) bisacodyl 5 mg tablet,delayed 5 mg PO BEDTIME PRN constipation 10/05/24 release (Dulcolax (bisacodyl)) #30 tabs verapamil 240 mg tablet,extended 240 mg PO DAILY 90 days #90 tabs 10/11/24 release multivitamin 1 tab PO DAILY #90 tabs 10/24/24 docusate sodium 100 mg capsule 200 mg (2 x 100 mg) PO .COMPLEX 10/25/24 (Colace) #180 caps famotidine 40 mg tablet 40 mg PO DAILY heartburn #90 tabs 10/25/24 spironolactone 25 mg tablet 25 mg PO DAILY #30 tabs 11/22/24 Allergies Allergy/AdvReac Type Severity Reaction Status Date / Time amoxicillin [AMOXICILLIN] Allergy Severe ANAPHYLAXIS, Verified 11/29/24 20:53 swelling Penicillins [PENICILLINS] Allergy Severe ANAPHYLAXIS Verified 11/29/24 20:53 polyethylene glycol 3350 Allergy Severe ANAPHYLAXIS Verified 11/29/24 20:53 [From MIRALAX] sulindac [SULINDAC] Allergy Severe SWELLING Verified 11/29/24 20:53 senna Allergy Intermediate Unknown Verified 11/29/24 20:53 seafood Allergy Hives Verified 11/29/24 20:53 Review of Systems 2 Review of Systems: Yes all other systems are reviewed and are negative PMFSH Past Medical History Medical History Possible exposure to STD Breast mass, right Morbid obesity with BMI of 40.0-44.9, adult Hypertension Annual visit for general adult medical examination with abnormal findings Heart murmur, systolic Breast pain Right Achilles tendinitis Erythema intertrigo External hemorrhoids Bleeding hemorrhoids Vitamin D deficiency Heel callus Mild intermittent asthma in adult without complication Ex-cigarette smoker Motion sickness Mild intellectual disability Porcelain gallbladder Migraine Depression with anxiety Obesity Dysmenorrhea 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 Brother No problems noted. Brother No problems noted. 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 Cognitive needs: No Hearing needs: No Vision needs: Yes Physical Exam ED Vital Signs: Vital Signs - 24 hr 11/29/24 20:50 11/29/24 20:59 11/30/24 02:07 Temperature 97.6 F 98.9 F Pulse Rate 107 H 106 H Respiratory Rate 18 25 H Blood Pressure 203/124 H 217/125 H 208/125 H Pulse Oximetry 100 99 Oxygen Delivery Method Room Air Room Air BMI result Body Mass Index 44.3 Well-appearing female in no acute distress A&O x4; normal speech cognition Lungs clear to auscultation bilaterally Normal S1-S2 regular rate rhythm Abdomen is soft nontender nondistended Medications Administered Generic Name Dose Route Start Last Admin Trade Name Freq PRN Reason Stop Dose Admin Sodium Chloride 500 mls @ 500 mls/hr 11/30/24 01:45 11/30/24 02:18 Ns IV 11/30/24 02:44 500 mls/hr .Q1H EVER Administration Discontinued Medications Generic Name Dose Route Start Last Admin Trade Name Freq PRN Reason Stop Dose Admin Aspirin 324 mg 11/29/24 23:10 11/30/24 00:35 Aspirin 81 Mg Tab.Chew PO 11/29/24 23:11 324 mg ONCE ONE Administration Enoxaparin Sodium 40 mg 11/30/24 02:30 11/30/24 02:30 Enoxaparin Sodium 40 Mg/0.4 Ml Syringe SUBCUT 40 mg Q24H EVER Administration Iohexol 65 ml 11/29/24 23:31 11/29/24 23:31 Iohexol 350 Mg/Ml 100 Ml Infus..Btl IV 11/29/24 23:32 65 ml ONCE ONE Administration Labetalol HCl 10 mg 11/30/24 02:17 11/30/24 02:28 Labetalol Hcl 100 Mg/20 Ml Vial IVPUSH 11/30/24 02:18 10 mg ONCE ONE Administration Medical Decision Making Medical Decision Making [facility] Narrative: 34-year-old female presents for chest pain -concerns for the following; costochondritis, pleuritis, pneumothorax, ACS, induced chest pain -labs and imaging studies ordered Lab and imaging interpretation: -normal wbc and H&H -trop 108 and 109 -no saddle PE; no evidence of PE per radiology -elevated Cr -no signs of ischemia on ecg I consulted the overnight machine cloth examiner who did not recommend admission I spoke with overnight hospitalist who was agreeable to admission for peyton and hypertensive urgency Lab Data 11/29/24 22:21 11/29/24 22:21 Labs: Lab Results 11/29/24 11/29/24 11/30/24 Range/Units 22:21 22:22 01:09 WBC 9.6 (4.8-10.8) X10*3/uL RBC 4.53 (4.20-5.50) X10*6/uL Hgb 12.7 (12.0-16.0) g/dl Hct 36.4 L (37.0-47.0) % MCV 80.4 (80.0-98.0) fL MCH 28.0 (27.0-33.0) pg MCHC 34.9 (31.0-35.0) g/dl RDW 13.8 (11.0-16.0) % Plt Count 160 (160-400) X10*3/uL MPV 9.9 (9.4-12.3) fL Immature Gran % (Auto) 0.3 (0.0-0.4) % Neut % (Auto) 78.3 H (45-73) % Lymph % (Auto) 14.0 L (20-40) % [place] % (Auto) 6.3 (2-11) % Eos % (Auto) 0.5 (0-4) % Baso % (Auto) 0.6 (0-2) % Lymph # (Auto) 1.3 (1.2-4.9) X10*3/uL [place] # (Auto) 0.6 (0.1-1.2) X10*3/uL Eos # (Auto) 0.1 (0.0-0.4) X10*3/uL Baso # (Auto) 0.1 (0.0-0.2) X10*3/uL Abs Immat Gran (auto) 0.03 (0.00-0.03) X10*3/uL Absolute Neuts (auto) 7.5 (2.0-8.3) x10*3/uL Absolute Nucleated RBC 0.000 (0.0-0.012) X10*3/uL Nucleated RBC % (auto) 0.0 (0.0-0.2) /100WBC Sodium 143 (135-145) mmol/L Potassium 3.4 (3.3-5.1) mmol/L Chloride 110 H (96-108) mmol/L Carbon Dioxide 24 (22-29) mmol/L Anion Gap 12 (12-20) BUN 11 (9-16) mg/dL Creatinine 1.63 H (0.5-1.4) mg/dL Estim Creat Clear Calc 60.0 Estimated GFR 37 Random Glucose 110 (60-115) mg/dL Calcium 9.3 D (8.4-10.2) mg/dL Total Bilirubin 0.4 (0.0-1.0) mg/dL AST 17 (5-31) U/L ALT 16 (0-31) U/L Alkaline Phosphatase 107 (39-117) U/L Troponin I High Sens 108.9 H* D 109.2 H* (<3.5-17.0) ng/L B-Natriuretic Peptide 178 H (<100) pg/mL Total Protein 7.8 (6.5-8.0) g/dL Albumin 4.5 (3.5-5.0) g/dL Lipase 33 (8-78) U/L Discharge Plan Discharge Clinical Impression: PEYTON (acute kidney injury), Hypertensive urgency Chest pain Qualifiers: Chest pain type: unspecified Qualified Code(s): R07.9 - Chest pain, unspecified Patient Disposition: Admitted As Inpatient Print Language: Kosovan
[2024-11-30 01:55] LABS: Troponin-I High Sensitivity 109.2 ng/L (<3.5-17.0)
--- NOTE | 2024-11-30 02:14 | PM.IMHP ---
History of Present Illness Date of Service: 11/30/24 Chief Complaint: Chest pain, nausea This is a 34-year-old female with pertinent history of mood disorder, gastroesophageal reflux disease, mild intellectual disability, hypertension who presents to the emergency department for evaluation of chest pain. Patient states she has been smoking marijuana for the last 24 hours at her boyfriend's house. Prior to presentation, she started having midsternal chest discomfort which is constant and not relieved with rest. Patient states it sometimes is exacerbated with exertion. Did not try nitroglycerin. Also reports reduced p.o. intake with the last 1-2 days and has been having nausea and did have 1 episode of nonbloody emesis. No fever, chills, palpitations, shortness of breath, abdominal pain, changes in urinary or bowel habits. In the emergency department, patient was found to have PEYTON with creatinine 1.63. BP 217/125 and troponin 109 Review of Systems Constitutional: Constitutional: Reports fatigue and Reports malaise Cardiovascular: Cardiovascular: Reports chest pain and Reports chest pain at rest Respiratory: Respiratory: Reports no additional respiratory complaints Gastrointestinal: Gastrointestinal: Reports no additional gastrointestinal complaints Genitourinary: Genitourinary: Reports no additional female genitourinary complaints Endocrine: Endocrine: Reports fatigue [facility] Medical History Possible exposure to STD Breast mass, right Morbid obesity with BMI of 40.0-44.9, adult Hypertension Annual visit for general adult medical examination with abnormal findings Heart murmur, systolic Breast pain Right Achilles tendinitis Erythema intertrigo External hemorrhoids Bleeding hemorrhoids Vitamin D deficiency Heel callus Mild intermittent asthma in adult without complication Ex-cigarette smoker Motion sickness Mild intellectual disability Porcelain gallbladder Migraine Depression with anxiety Obesity Dysmenorrhea 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 Brother No problems noted. Brother No problems noted. Maternal Aunt Breast cancer Maternal Grandmother Hypertension Surgical History S/P laparoscopic cholecystectomy History of cholecystectomy History of benign neoplasm of breast History of eye surgery Social History Household Members: Other Housing Other:: jail Are you a primary health care legal assistant to a significant other at home: No Alcohol intake: never Patient Tobacco Use Status: Former Tobacco user Tobacco use type: Cigarette Cigarettes Per Day: 0 e-Cigarette/Vaping Use: Never Used Second Hand Smoke Exposure: No Advance Directives: No Advance Directives Information Provided: No Do you have a plan to hurt others: No Plan service: No 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al status: disabled 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 Cognitive needs: No Hearing needs: No Vision needs: Yes Meds Allergies Allergy/AdvReac Type Severity Reaction Status Date / Time amoxicillin [AMOXICILLIN] Allergy Severe ANAPHYLAXIS, Verified 11/29/24 20:53 swelling Penicillins [PENICILLINS] Allergy Severe ANAPHYLAXIS Verified 11/29/24 20:53 polyethylene glycol 3350 Allergy Severe ANAPHYLAXIS Verified 11/29/24 20:53 [From MIRALAX] sulindac [SULINDAC] Allergy Severe SWELLING Verified 11/29/24 20:53 senna Allergy Intermediate Unknown Verified 11/29/24 20:53 seafood Allergy Hives Verified 11/29/24 20:53 Active Medications: Current Medications Sodium Chloride (Ns) 500 mls @ 500 mls/hr IV .Q1H EVER Stop: 11/30/24 02:44 Sodium Chloride (Ns) 500 mls @ 500 mls/hr IV .Q1H EVER Stop: 11/30/24 03:14 Home Medications ?Medication ?Instructions ?Recorded ?Confirmed ?Last Taken ?Type polyvinyl alcohol 1.4 % eye drops 1 drp ophthalmic (eye) DAILY 07/06/21 10/31/24 Unknown History (Artificial Tears (polyvinyl alcohol)) melatonin 5 mg tablet 5 mg PO BEDTIME 07/26/21 10/31/24 Unknown History erythromycin 5 mg/gram (0.5 %) eye 1 appl ophthalmic (eye) DAILY 01/24/23 10/31/24 Unknown History ointment sumatriptan succinate 50 mg tablet 50 mg PO DAILY PRN 11/22/24 Unknown History trazodone 150 mg tablet 300 mg PO BEDTIME Insomnia 11/22/24 Unknown History Physical Exam Vital Signs and Narrative: Vital Signs: Last Vital Signs Temp 98.9 F 11/30/24 02:07 Pulse 106 H 11/30/24 02:07 Resp 25 H 11/30/24 02:07 BP 208/125 H 11/30/24 02:07 Pulse Ox 99 11/30/24 02:07 O2 Del Method Room Air 11/30/24 02:07 BMI result Body Mass Index 44.3 Middle-aged female lying in bed in no distress Neck supple, no JVD, contracted skin over left eye Regular rate and rhythm, S1-S2 heard Regular breath sounds bilaterally, no wheezing or crackles appreciated Abdomen soft nontender, no guarding, no rigidity Patient is awake, alert and oriented to self, place, time and person ; no focal motor deficit Psych: Normal mood No pedal edema Results Labs 11/29/24 22:21 11/29/24 22:21 Labs: Laboratory Results - last 24 hr 11/29/24 11/30/24 22:21 01:09 MCV 80.4 MCH 28.0 MCHC 34.9 RDW 13.8 Plt Count 160 MPV 9.9 Immature Gran % (Auto) 0.3 Neut % (Auto) 78.3 H Lymph % (Auto) 14.0 L [place] % (Auto) 6.3 Eos % (Auto) 0.5 Baso % (Auto) 0.6 Lymph # (Auto) 1.3 [place] # (Auto) 0.6 Eos # (Auto) 0.1 Baso # (Auto) 0.1 Abs Immat Gran (auto) 0.03 Absolute Neuts (auto) 7.5 Absolute Nucleated RBC 0.000 Nucleated RBC % (auto) 0.0 Anion Gap 12 Estim Creat Clear Calc 60.0 Estimated GFR 37 Random Glucose 110 Calcium 9.3 D Total Bilirubin 0.4 AST 17 ALT 16 Alkaline Phosphatase 107 B-Natriuretic Peptide 178 H Total Protein 7.8 Albumin 4.5 Lipase 33 Assessment and Plan (1) PEYTON (acute kidney injury): Status: Acute (2) Hypertensive urgency: Status: Acute (3) Chest pain: Qualifiers: Chest pain type: unspecified Qualified Code(s): R07.9 - Chest pain, unspecified Status: Acute Plan This is a 34-year-old female with pertinent history of mood disorder, gastroesophageal reflux disease, mild intellectual disability, hypertension who presents to the emergency department for evaluation of chest pain. #. Acute kidney injury stage I: Monitor with crystalloid resuscitation. Avoid nephrotoxins #. Hypertensive urgency/emergency: Blood pressure controlled with IV labetalol in the ER. Continue home antihypertensives and titrate. Hold spironolactone in the setting of PEYTNO #. Chest pain, atypical: Noted troponin elevation in the ER. Patient given aspirin and 1 dose of therapeutic Lovenox in the ER. Repeat troponin in a.m. #. Mood disorder: Continue home mood stabilizers #. Gastroesophageal reflux disease: On famotidine Med rec pending DVT prophylaxis: Lovenox Full code Admit as inpatient and will require two night minimum hospital stay for monitoring of kidney function, blood pressure (as above), which is not possible in a lesser acute setting. Quality Stroke Does the patient have a stroke diagnosis?: No VTE Prior VTE?: No VTE Risk Level:: Medical - moderate - high VTE Device Contraindication: Treatment Not Indicated VTE Drug Contraindication: N/A - Med Ordered
[2024-11-30] MEDS: 0.9 % Sodium Chloride 500 ML IV ×2 (02:18→03:40)
[2024-11-30] MEDS: Labetalol HCL 100 MG/20 ML VIAL 10 MG IVPUSH (02:28)
[2024-11-30] MEDS: Enoxaparin Sodium 40 MG/0.4 ML SYRINGE SUBCUT ×2 (02:30→23:25)
[2024-11-30 03:25] LABS: HCG Quantitative < 2 mIU/mL
[2024-11-30 03:32] LABS: Prothrombin Time 11.6 SEC (10.9-12.4)
[2024-11-30 03:32] LABS: Appearance Urine Clear; Color Urine Yellow; Glucose Urine UA Negative (Negative); Leukocyte Esterase Urine Negative (Negative); Nitrite Urine Negative (Negative); PH 5.5 (5.0-9.0); Specific Gravity - Urine >= 1.030 (1.005-1.025); UMIC TRIGGER UACC YES; Urine Blood Trace (Negative); Urine Ketones Negative (Negative); Urine Protein 300 (3+) mg/dL (Neg-Trace)
[2024-11-30 03:37] LABS: Bacteria Urine Trace (None Seen); Hyaline Casts Urine 0-2 /LPF (0-2); RBC Urine 0-2 /HPF (0-2); WBC Urine 0-5 /HPF (0-5)
[2024-11-30 03:44] LABS: Amphetamine Screen Urine Not Detected (Not Detect); Barbiturates, Urine Not Detected (Not Detect); Benzodiazepines Screen Urine Not Detected (Not Detect); Buprenorphine Scr Not Detected (Not Detect); Cannabinoid Screen Urine Not Detected (Not Detect); Cocaine Screen Urine Not Detected (Not Detect); Fentanyl, urine Not Detected (Not Detect); Methadone Screen, Urine Not Detected (Not Detect); Opiate Screen Urine Not Detected (Not Detect); Oxycodone Screen Urine Not Detected (Not Detect); Phencyclidine Screen Urine Not Detected (Not Detect)
--- NOTE | 2024-11-30 04:08 | PC.NURSE ---
Took report from off-going RN at 2300 hours. Pt is a pleasant 34 y/o female who presented to the ED for evaluation of dizziness, weakness, headache, and nausea after smoking marijuana. Pt is awake, alert, and oriented X 4 and is cooperative with staff. Verbalizes needs appropriately. Resting comfortably in bed without acute distress and changes positions independently as desired. Has asked for and been offered food and fluids while here in the ED. 20G IV access in left AC with NS running. Pt is pending admission and awaiting bed assignment. Will continue to monitor for any changes.
[2024-11-30] MEDS: Enoxaparin Sodium 80 MG/0.8 ML SYRINGE 70 MG SUBCUT (04:22)
--- NOTE | 2024-11-30 06:18 | PC.NURSE ---
0444 hours: 170/77, 91 regular, 16 non-labored, 97% room air.
[2024-11-30 07:14] LABS: Anion Gap 15 (12-20); Blood Urea Nitrogen 12 mg/dL (9-16); Calcium 8.9 mg/dL (8.4-10.2); Carbon Dioxide 21 mmol/L (22-29); Chloride 109 mmol/L (96-108); Creatinine Clr Calc Pharmacy 59.3; Estimated Glomerular Filt Rate 36; Glucose Random 91 mg/dL (60-115); Potassium 3.6 mmol/L (3.3-5.1); Sodium 141 mmol/L (135-145)
[2024-11-30 07:30] LABS: Troponin-I High Sensitivity 70.3 ng/L (<3.5-17.0)
[2024-11-30 07:31] LABS: Basophils Absolute Auto 0.1 X10*3/uL (0.0-0.2); Basophils Percent Auto 0.8 % (0-2); Eosinophils Absolute Auto 0.1 X10*3/uL (0.0-0.4); Eosinophils Percent Auto 1.5 % (0-4); Hemoglobin 12.2 g/dl (12.0-16.0); Imm Gran Abs Auto 0.05 X10*3/uL (0.00-0.03); Imm Gran Pct Auto 0.7 % (0.0-0.4); Lymphocytes Absolute Auto 1.3 X10*3/uL (1.2-4.9); Lymphocytes Percent Auto 18.1 % (20-40); MANUAL DIFF FLAG SCAN; Mean Corpuscular HGB Conc 34.9 g/dl (31.0-35.0); Mean Corpuscular Hemoglobin 28.2 pg (27.0-33.0); Monocytes Absolute Auto 0.6 X10*3/uL (0.1-1.2); Monocytes Percent Auto 7.4 % (2-11); Neutrophils Absolute Auto 5.3 x10*3/uL (2.0-8.3); Neutrophils Percent Auto 71.5 % (45-73); PLT CLUMP 1; Red Blood Count 4.32 X10*6/uL (4.20-5.50); Red Cell Distribution Width 13.9 % (11.0-16.0); SCAN SMEAR FLAG 1
[2024-11-30 07:32] LABS: White Blood Count 7.4 X10*3/uL (4.8-10.8)
[2024-11-30] MEDS: 0.9 % Sodium Chloride Flush 3 ML SYRINGE IVFLUSH ×3 (08:21→23:25)
[2024-11-30 08:59] LABS: SLIDE REVIEW VERIFIED
[2024-11-30 11:06] LABS: Influenza A PCR NEGATIVE (Negative); Influenza B PCR NEGATIVE (Negative); Resp Syncy Virus RNA Qual PCR NEGATIVE (Negative); SARS COV2 PCR INHOUSE NEGATIVE (Negative)
--- NOTE | 2024-11-30 12:23 | PHA.MEDREC ---
Addendum entered by Karrie Jensen RPh 11/30/24 13:04: Reviewed by pharmacist Original Note: Pharmacy Consult ? Medication Reconciliation Pharmacy has completed the medication reconciliation. Spoke with patient to confirm medications. No claims for sumatriptan but patient says she has at home as needed. She reports she took her medications yesterday.
--- NOTE | 2024-11-30 14:18 | PM.EVENT ---
Event Note Date of Service: 11/30/24 Event Note: 34-year-old female with pertinent history of mood disorder, gastroesophageal reflux disease, mild intellectual disability, hypertension who presents to the emergency department for evaluation of chest pain. Acute kidney injury stage I unknown etiology continue IV fluids Avoid nephrotoxins consult nephro if PEYTON worsens Hypertensive urgency/emergency Blood pressure controlled with IV labetalol in the ER. Continue home antihypertensives and titrate. Hold spironolactone in the setting of PEYTON Chest pain, atypical Noted troponin elevation in the ER. Patient given aspirin and 1 dose of therapeutic Lovenox in the ER. Repeat troponin lower Mood disorder Continue home mood stabilizers Gastroesophageal reflux disease On famotidine DVT prophylaxis: Lovenox Full code Time Spent With Patient Time: Total time managing care of this patient today ____ minutes.
[2024-11-30] MEDS: Spironolactone 25 MG TABLET PO (17:16)
[2024-11-30] MEDS: VerapamiL HCL SR 240 MG TABLET.ER PO (17:17)
[2024-11-30] MEDS: cloNIDine HCL 0.1 MG TABLET PO (23:24)
[2024-11-30] MEDS: OXcarbazepine 300 MG TABLET 600 MG PO (23:24)
[2024-11-30] MEDS: Docusate Sodium 100 MG CAPSULE 200 MG PO (23:25)
[2024-11-30] MEDS: traZODone HCL 100 MG TABLET 300 MG PO (23:25)
[2024-11-30] MEDS: bisacodyL 5 MG TABLET.DR PO (23:29)
[2024-12-01 00:56] VITALS: BP 175/98
[2024-12-01 03:25] VITALS: BP 138/88; PULSE 83; RESP 16; TEMP 36.1; O2SAT 98
[2024-12-01 07:55] VITALS: BP 166/88; PULSE 87; RESP 20; TEMP 36.1; O2SAT 98
[2024-12-01] MEDS: Loratadine 10 MG TABLET PO (08:17)
[2024-12-01] MEDS: OXcarbazepine 300 MG TABLET 600 MG PO (08:17)
[2024-12-01] MEDS: VerapamiL HCL SR 240 MG TABLET.ER PO (08:17)
[2024-12-01] MEDS: Spironolactone 25 MG TABLET PO (08:17)
[2024-12-01] MEDS: Famotidine 20 MG TABLET 40 MG PO (08:18)
[2024-12-01] MEDS: Multivitamin TABLET 1 TAB PO (08:18)
[2024-12-01] MEDS: 0.9 % Sodium Chloride Flush 3 ML SYRINGE IVFLUSH (08:21)
--- NOTE | 2024-12-01 09:25 | P.DS_ITS ---
DS: Providers Provider Date of Service: 12/01/24 Date of admission: 11/30/24 02:13 Date of discharge: 12/01/24 Primary care physician: Unknown Physician DS: Diagnosis Discharge Diagnosis (1) PEYTON (acute kidney injury): Status: Acute (2) Hypertensive urgency: Status: Acute (3) Chest pain: Status: Acute DS: Summary Hospital Course Hospital Course: History and physical as per admitting provider. This is a 34-year-old female with pertinent history of mood disorder, gastroesophageal reflux disease, mild intellectual disability, hypertension who presents to the emergency department for evaluation of chest pain. Patient states she has been smoking marijuana for the last 24 hours at her boyfriend's house. Prior to presentation, she started having midsternal chest discomfort which is constant and not relieved with rest. Patient states it sometimes is exacerbated with exertion. Did not try nitroglycerin. Also reports reduced p.o. intake with the last 1-2 days and has been having nausea and did have 1 episode of nonbloody emesis. No fever, chills, palpitations, shortness of breath, abdominal pain, changes in urinary or bowel habits. In the emergency department, patient was found to have PEYTON with creatinine 1.63. BP 217/125 and troponin 109 34-year-old woman treated for hypertensive urgency and PEYTON. Patient treated with labetalol initially in the ER, continued home antihypertensives including verapamil and spironolactone. Acute kidney injury treated with IV fluids. Creatinine now close to baseline. She was also treated for chest pain, noted elevated troponin in the ER but flat, patient given aspirin and 1 dose of therapeutic Lovenox, EKG without acute ischemic changes. due to PEYTON, check BMP in 2 days prior to restarting spironolactone. Mental health. Continue home medications GERD. Continue PPI Time Attestation Discharge Coordination Time (in mins): 40 Quality: Safe Use of Opioids Does Pt have an Active Cancer Diagnosis on the Problem List?: No Quality: Stroke Does the patient have a stroke diagnosis?: No Physical Exam Vital Signs: Vital Signs: Last Vital Signs Temp 97.0 F 12/01/24 07:55 Pulse 87 12/01/24 07:55 Resp 20 12/01/24 07:55 BP 166/88 H 12/01/24 07:55 Pulse Ox 98 12/01/24 07:55 O2 Del Method Room Air 12/01/24 07:55 BMI result Body Mass Index 41.0 Appearing in no acute distress head is normocephalic atraumatic eyes pupils are PERRLA sclera is anicteric mouth throat mucous membranes are intact and moist neck is supple no lymphadenopathy, no JVD noted lung sounds are clear to auscultation heart regular rate rhythm, clear S1, S2 positive bowel sounds, abdomen is soft, nontender neuro patient is alert x3, no focal deficits DS: Data Data Completed and Pending Labs on day of discharge: Laboratory Results - last 24 hr 11/30/24 09:52 Influenza Type A (PCR) NEGATIVE Influenza Type B (PCR) NEGATIVE RSV RNA Qual (PCR) NEGATIVE SARS-CoV-2 RNA (RT-PCR) NEGATIVE Discharge Plan Discharge Anticipated Discharge Date/Time: 12/01/24 12:47 Patient Disposition: Home, Self-Care Discharge Diagnosis: Hypertensive urgency PEYTON Discharge Medications: Continued oxcarbazepine [Trileptal] 600 mg tablet 600 mg PO BID Qty: 60 3RF multivitamin Tablet 1 tab PO DAILY Qty: 90 0RF bisacodyl [Dulcolax (bisacodyl)] 5 mg tablet,delayed release (DR/EC) 5 mg PO BEDTIME PRN (Reason: constipation) Qty: 30 0RF clonidine HCl 0.1 mg tablet 0.1 mg PO BEDTIME loratadine 10 mg tablet 10 mg PO DAILY docusate sodium [Colace] 100 mg capsule 200 mg PO BEDTIME sumatriptan succinate 50 mg tablet 50 mg PO DAILY PRN (Reason: Headache) polyvinyl alcohol [Artificial Tears (polyvin alc)] 1.4 % drops 1 drp ophthalmic (eye) BEDTIME PRN (Reason: Dry Eyes) albuterol sulfate 90 mcg/actuation HFA aerosol inhaler 2 puff inhalation Q6H PRN (Reason: bronchospasm) Qty: 8.5 8RF albuterol sulfate 2.5 mg /3 mL (0.083 %) solution for nebulization 2.5 mg inhalation Q6H PRN (Reason: shortness of breath or wheezing) Qty: 75 5RF melatonin 5 mg tablet 5 mg PO BEDTIME trazodone 150 mg tablet 300 mg PO BEDTIME verapamil 240 mg tablet extended release 240 mg PO DAILY 90 Days Qty: 90 3RF famotidine 40 mg tablet 40 mg PO DAILY Qty: 90 0RF Rx Instructions: take 30 mins ac Held spironolactone 25 mg tablet 25 mg PO DAILY Qty: 30 3RF Hold Instructions: Resume on 01/01/25. Discharge Orders: Discharge Order (Routine); Ordered 12/01/24 Ordered By: Lita Persaud Diet: Advance to usual diet Activity on Discharge: As tolerated Stand Alone Forms: Patient Portal Discharge page Print Language: Tanzanian Other Ambulatory Orders: Basic Metabolic Panel (Routine) Timeframe: 2 Days Facility: [facility] - Location: Laboratory Ordered By: Lita Persaud Care Plan Goals: Continue taking home medications Hold spironolactone for 3 days secondary to acute kidney injury Health Concerns: Hypertensive urgency PEYTON Plan of Treatment: Follow up with primary care provider as needed Take all medications as prescribed Assessment: See discharge summary
[2024-12-01 09:42] LABS: Anion Gap 13 (12-20); Blood Urea Nitrogen 11 mg/dL (9-16); Calcium 9.5 mg/dL (8.4-10.2); Carbon Dioxide 24 mmol/L (22-29); Chloride 107 mmol/L (96-108); Creatinine Clr Calc Pharmacy 52.9; Estimated Glomerular Filt Rate 33; Glucose Random 85 mg/dL (60-115); Potassium 3.5 mmol/L (3.3-5.1); Sodium 140 mmol/L (135-145)
[2024-12-01] MEDS: 0.9 % Sodium Chloride 1,000 ML 999 ML IVCONT (10:12)
[2024-12-01 12:00] VITALS: BP 139/97; PULSE 94; RESP 18; TEMP 36.2; O2SAT 94
--- NOTE | 2024-12-01 12:52 | MHC.CM.PN ---
PATIENT ELOPED FROM HER SHARED LIVING SITUATION W A MALE. SHE WAS GONE> 24 HOURS. PROTOCOL AFTER ELOPEMENT IS HOSPITALIZATION. [facility] ON FILE, [facility]. CONTACT, PAULA GALINDO, IS THE SHARED LIVING PERSON. PATIENT PHYSICALLY INDEPENDENT. DP RETURN TO HOME WITH C.G ASSIST AND TRANSPORT HOME.
[2024-12-01 13:49] LABS: Creatinine Clr Calc Pharmacy 58.5; Estimated Glomerular Filt Rate 37
== END 2024-12-01 13:51 | disposition home or self-care (01) | DRG 199 ==
LOC: HO.ED 11-30 02:14 → HO.EDOVER 11-30 02:37 → HO.IMC 11-30 08:09
PROVIDERS: Admitting Provider Student in an Organized Health Care Education/Training Program; Emergency Provider Student in an Organized Health Care Education/Training Program; Visit Provider Nurse Practitioner Acute Care
DX: I16.0 Hypertensive urgency (principal); N17.9 Acute kidney failure, unspecified; F17.210 Nicotine dependence, cigarettes, uncomplicated; F70 Mild intellectual disabilities; F39 Unspecified mood [affective] disorder; Z71.6 Tobacco abuse counseling; I10 Essential (primary) hypertension; K21.9 Gastro-esophageal reflux disease without esophagitis; Z20.822 Contact with and (suspected) exposure to COVID-19; Z79.899 Other long term (current) drug therapy
CPT/HCPCS: 0241U; 36415; 71275; 80048; 80053; 80307; 81001; 82565; 83690; 83880; 84484; 84702; 85025; 85610; 93005; 99285; J1650; J1920; Q9967

== ENCOUNTER → 2024-11-29 21:22 | Outpatient (BNV) | payer OTHER, SELFPAY | PROVIDERS: Emergency Provider Student in an Organized Health Care Education/Training Program; Visit Provider Student in an Organized Health Care Education/Training Program | DX: N17.9 Acute kidney failure, unspecified (principal); I16.0 Hypertensive urgency; R07.9 Chest pain, unspecified | CPT/HCPCS: 99223; 99239; 99499 ==

== ENCOUNTER → 2024-11-29 23:07 | Outpatient (BNV) | payer OTHER, SELFPAY | PROVIDERS: Emergency Provider Student in an Organized Health Care Education/Training Program; Visit Provider Radiology Diagnostic Radiology | DX: R42 Dizziness and giddiness (principal) | CPT/HCPCS: 71275 ==

== ENCOUNTER → 2024-11-29 23:10 | Outpatient (BNV) | payer OTHER, SELFPAY | PROVIDERS: Admitting Provider Student in an Organized Health Care Education/Training Program; Emergency Provider Student in an Organized Health Care Education/Training Program; Visit Provider Internal Medicine Cardiovascular Disease | DX: R94.31 Abnormal electrocardiogram [ECG] [EKG] (principal); R79.89 Other specified abnormal findings of blood chemistry | CPT/HCPCS: 93010 ==

== ENCOUNTER 2024-12-03 08:13 | Outpatient (REF) | payer OTHER, SELFPAY ==
--- OUTSIDE RECORDS SUMMARY | 2024-12-03 08:34 | XMS_ITS | Clinical Summary ---
Author Organization [facility] [facility] Address [address] [place] [address] Care Team Providers Care [employer] Product Manager Name Role Phone Fernandez Tyler MD Primary Care Provider [phone] Surgical History Surgery Date Site/Laterality Comments BREAST [...] age to complete this topic Care Teams Biofuels Product Manager Relationship Specialty Start Date End Date Fernandez Tyler MD [address] [place] [address] Drive [address] [place] [address] PCP - General Internal Medicine 03/19/14
[2024-12-03 09:50] LABS: Anion Gap 11 (12-20); Blood Urea Nitrogen 12 mg/dL (9-16); Calcium 8.8 mg/dL (8.4-10.2); Carbon Dioxide 25 mmol/L (22-29); Chloride 110 mmol/L (96-108); Estimated Glomerular Filt Rate 31; Glucose Random 86 mg/dL (60-115); Potassium 3.7 mmol/L (3.3-5.1); Sodium 142 mmol/L (135-145)
== END 2024-12-03 08:14 | disposition home or self-care (01) ==
LOC: HO.LAB 08:13
PROVIDERS: PCP Internal Medicine; Visit Provider Nurse Practitioner Acute Care
DX: N17.9 Acute kidney failure, unspecified (principal)
CPT/HCPCS: 36415; 80048

== ENCOUNTER 2024-12-09 12:29 | Outpatient (AMB) | payer OTHER, SELFPAY ==
--- NOTE | 2024-12-09 12:56 | MHC.PC.OV ---
Vital Signs 12/09/24 12:58 Height 5 ft 3 in Weight 229 lb BMI 40.6 BP 128/70 Blood Pressure Location Rt brachial Position Sitting Respiration 16 Pulse 92 Pulse Source Pulse Oximeter Temp 98.5 F Temp Source Oral Pulse Oximetry (%) 97 Oxygen Delivery Method Room Air Intake Visit Reasons: [facility] [place] chest pain/elevated b/p Intake Note: Pt is here today [facility] [place] ER f/u chest pain/elevated b/p Allergies amoxicillin [AMOXICILLIN] Allergy (Severe, Verified 12/15/24 21:40) ANAPHYLAXIS, swelling Penicillins [PENICILLINS] Allergy (Severe, Verified 12/15/24 21:40) ANAPHYLAXIS polyethylene glycol 3350 [From MIRALAX] Allergy (Severe, Verified 12/15/24 21:40) ANAPHYLAXIS sulindac [SULINDAC] Allergy (Severe, Verified 12/15/24 21:40) SWELLING senna Allergy (Intermediate, Verified 12/15/24 21:40) Unknown seafood Allergy (Verified 12/15/24 21:40) Hives Medication List - Last Reconciled 12/09/24 by Mindy Hutchinson MD albuterol sulfate 90 mcg/actuation 2 puffs inhalation Q6H PRN albuterol sulfate 2.5 mg (3 mL) inhalation Q6H PRN bisacodyl (Dulcolax (bisacodyl)) 5 mg PO BEDTIME PRN clonidine HCl 0.1 mg PO BEDTIME docusate sodium (Colace) 200 mg PO BEDTIME famotidine 40 mg PO DAILY loratadine 10 mg PO DAILY PRN melatonin 5 mg PO BEDTIME multivitamin 1 tab PO DAILY oxcarbazepine (Trileptal) 600 mg PO BID polyvinyl alcohol 1.4% (Artificial Tears (polyvinyl alcohol)) 1 drp ophthalmic (eye) BEDTIME PRN spironolactone 25 mg PO DAILY sumatriptan succinate 50 mg PO DAILY PRN trazodone 300 mg PO BEDTIME verapamil ER 240 mg PO DAILY 90 days Tobacco use date assessed: 12/09/24 Dental Screening Dental Screen Date: 10/25/24 HPI [facility] [place] chest pain/elevated b/p HPI Details 34-year-old lady with history of mood disorder, GERD, mild intellectual disability, hypertension here today for an HDF after a recent ER visit for evaluation of chest pain. Patient states that she has been smoking marijuana for at least 24 hours at her boyfriend's house prior to symptom onset. She describes the pain as midsternal discomfort which is constant, unrelieved with rest and worse with exertion. Patient also states that she has been experiencing some nausea and had 1 episode of vomiting. There was no accompanying fever, no chills, no palpitations, shortness of breath, no abdominal pain, change in bowel habits, no urinary symptoms. Her labs done at the ER showed presence of acute kidney injury with creatinine at 1.63, blood pressure was 217/125, and troponin was 109. She was given labetalol at the ER and continued on her antihypertensive medications namely verapamil and spironolactone. IV fluids was given with creatinine returning close to baseline. She received 1 dose of Lovenox, EKG done did not show any acute ischemic changes,. She was then discharged home on same home medications. Blood pressure at goal of less than 130/80. Continue with current medication. Reinforced importance of following a low sodium diet, getting regular exercise, and lowering stress levels. Blood pressure today on this visit is within normal limits. She has no complaints at present time. [facility] Medical History (Updated 12/09/24 @ 13:46 by Mindy Hutchinson MD) Possible exposure to STD Breast mass, right Morbid obesity with BMI of 40.0-44.9, adult Hypertension Annual visit for general adult medical examination with abnormal findings Heart murmur, systolic Breast pain Right Achilles tendinitis Erythema intertrigo External hemorrhoids Bleeding hemorrhoids Vitamin D deficiency Heel callus Mild intermittent asthma in adult without complication Ex-cigarette smoker Motion sickness Mild intellectual disability Porcelain gallbladder Migraine Depression with anxiety Dysmenorrhea 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 Brother No problems noted. Brother No problems noted. 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) Alcohol intake: never Patient Tobacco Use Status: Current everyday Tobacco user Tobacco use type: Cigarette Cigarettes Per Day: 4 Years Smoked: 19 e-Cigarette/Vaping Use: Never Used Second Hand Smoke Exposure: No Substance Use Type: Marijuana service: No 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al status: disabled 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 1. Little interest or pleasure in doing things: not at all 2. Feeling down, depressed, or hopeless: not at all 3. Trouble falling or staying asleep, or sleeping too much: not at all 4. Feeling tired or having little energy: not at all 5. Poor appetite or overeating: not at all 6. Feeling bad about yourself - or that you are a failure or have let yourself or your family down: not at all 7. Trouble concentrating on things, such as reading the newspaper or watching television: not at all 8. Moving or speaking so slowly that other people could have noticed. Or the opposite - being so fidgety or restless that you have been moving around a lot more than usual: not at all 9. Thoughts that you would be better off or of hurting yourself in some way: not at all Total score: 0 Depression Screening Interpretation: Negative (Controlled on medication, followed by Britton Jones ) Depression Screening Done: Yes 72611 - PHQ-9 Billing: Yes Source: Developed by Drs. Jett Oneal, Felisa River, Raudel Correa and colleagues, with an educational geraldine from [facility]. Thrive Questionnaire Date Thrive assessed: 12/01/24 I am a: Patient What is your living situation today?: I have a steady place to live Within the past 12 months, did the food you bought not last and you didn't have the money to get more?: Often true Within the past 12 months, did you worry whether your food would run out before you got money to buy more?: Often true Do you have trouble paying for medicines?: No Do you have trouble getting transportation to medical appointments?: No Do you have trouble paying your heating and electricity bill?: No Do you have trouble taking care of your child, family member or friend?: No Do you have trouble with day-to-day activities such as bathing, preparing meals, shopping, managing finances, etc.?: No Are you currently unemployed and looking for a job?: No Are you interested in more education?: Yes Please select the resources that you would like help with: Education Currently or been in a relationship where the following occur: No concerns reported THRIVE Score: 2 AUDIT C Alcohol Use Questionnaire (AUDIT-C) 1. How often do you have a drink containing alcohol?: 4 or more times a week 2. How many drinks containing alcohol do you have on a typical day when you are drinking?: 1 or 2 3. How often do you have six or more drinks on one occasion?: Never Total Score: 4 LEYDA-7 AMB Questionnaire LEYDA-7 Date LEYDA - 7 assessed: 10/25/24 Feeling nervous, anxious, or on edge: 0 = Not at all Not being able to stop or control worryin = Not at all Worrying too much about different things: 0 = Not at all Trouble relaxin = Not at all Being so restless that it is hard to sit still: 0 = Not at all Becoming easily annoyed or irritable: 1 = Several days Feeling afraid as if something awful might happen: 0 = Not at all Total LEYDA-7 score (0-4 normal; 5-9 mild; 10-14 moderate; 15-21 severe): 1 Source: Developed by Drs. Jett Oneal, Felisa River, Raudel Correa and colleagues, with an educational geraldine from [facility]. Review of Systems Const All systems reviewed & are unremarkable except as noted in HPI and below Physical exam (Primary Care) Vital Signs: Last Vital Signs Temp 98.5 F 12/09/24 12:58 Pulse 92 12/09/24 12:58 Resp 16 12/09/24 12:58 BP 128/70 12/09/24 12:58 Pulse Ox 97 12/09/24 12:58 Oxygen Delivery Method Room Air 12/09/24 12:58 BMI result Body Mass Index 40.6 Tobacco/Smoking Status: Tobacco use Status Tobacco use date assessed 12/09/24 12/09/24 13:04 Patient Tobacco Use Status Current everyday Tobacco 12/09/24 13:04 Tobacco use type Cigarette 12/09/24 13:04 e-Cigarette/Vaping Use Never Used 12/09/24 13:04 PHQ-9: PHQ-9 Score PHQ-9: Total score 0 12/09/24 13:28 Depression Screening Interpretation: Negative (Controlled on medication, followed by Britton Jones ) Thrive Assessment: Date of Thrive Assessment Date Thrive assessed 12/01/24 12/09/24 13:04 Currently or been in a relationship where the following occur: No concerns reported Const Other: But oriented x3, no acute cardiorespiratory distress ambulatory normal gait, 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 Nutritional Appearance: obese Orientation/consciousness: patient oriented x3 HENMT Ears: external ears normal General nose exam: Normal external nose present Face and sinus: Yes face symmetric Mouth: Normal oral and palatal mucosa present, oropharynx normal and moist mucous membranes Eyes Other: Left eye prosthesis Periorbital: periorbital findings normal Conjunctivae: conjunctivae normal Sclerae: sclerae normal Neck Neck: Yes full ROM, Yes no lymphadenopathy and Yes supple Resp Auscultation: clear to auscultation bilaterally Cardio Other: S1-S2 present regular rate and rhythm, soft systolic murmur heard at the left sternal border GI Inspection: Yes obesity Palpation (GI): Soft to palpation, no guarding and no masses General: Yes no CVA tenderness and Yes deferred (Goes to OBGYN at [facility]) Back/Spine/Pelvis Back: no CVA tenderness and No back tenderness Skin General skin exam: no rashes or lesions noted and dry skin Neuro General: patient oriented x3, gait normal, tone normal, moves all extremities and no focal motor deficits Extrem General: Yes full ROM, Yes no joint enlargement, Yes no clubbing, cyanosis or edema and Yes normal gait Psych Appearance: grossly normal and well kempt Mental Status: mental status grossly normal Speech and movement: Normal speech and movement present Affect: normal affect Attitude: cooperative Coding Level of Care Code Est Pt Level 4 (81422) Diagnoses Primary hypertension I10 Hypertension type: primary hypertension Morbid obesity with BMI of 40.0-44.9, adult E66.01; Z68.41 Additional Codes PHQ-9 - 36969 - PHQ-9 Billing: Yes ([id number]) Assessment & Plan Assessment & Plan (1) Hypertension: Code(s): I10 - Essential (primary) hypertension Category: Medical Qualifiers: Hypertension type: primary hypertension Qualified Code(s): I10 - Essential (primary) hypertension Plan: Today's blood pressure is within normal limits, will continue on spironolactone 25 mg once a day and verapamil ER 240 mg daily. Has an appointment for follow-up with Nephrology later this week. (2) Morbid obesity with BMI of 40.0-44.9, adult: Code(s): E66.01 - Morbid (severe) obesity due to excess calories; Z68.41 - Body mass index [BMI] 40.0-44.9, adult Category: Medical Plan: Patient has been encouraged to lose weight, adherence to healthy eating habits and getting regular exercise strongly advised. Suggested referral to the sleep clinic to rule out presence of obstructive sleep apnea but patient declined. Referred to medical weight management at [facility] for help with weight loss Orders: Orders Basic Metabolic Panel 12/09/24 Mindy Hutchinson MD I10 - Essential (primary) hypertension, N17.9 - Acute kidney failure, unspecified Referrals Medical Weight Management Referral Mindy Hutchinson MD E66.01 - Morbid (severe) obesity due to excess calories, I10 - Essential (primary) hypertension, Z68.41 - Body mass index [BMI] 40.0-44.9, adult Medications: Resumed spironolactone 25 mg PO DAILY 30 tabs 3RF Lincoln Willson MD
[2024-12-09 12:58] VITALS: BP 128/70; PULSE 92; RESP 16; TEMP 36.9; O2SAT 97; BMI 40.6
--- OUTSIDE RECORDS SUMMARY | 2024-12-09 14:02 | XMS_ITS | Data Portability ---
Author Organization EDIE zelaya [facility] Address [address] [place] [address] Care Team Providers Care Environmental Field Technician Name Role Phone DANTE MARTINES Primary Care Provider Assessment No assessment recorded. Plan of Treatment Reminders Order Date Submit Date Provider Last Modified By Organization Details Last Modified Time Details Appointments None recorded. Lab urinalysis , dipstick 2022 023 [email or web address] [facility], [address] [place] [address], [phone], 3 19:07:26 test, urine 2022 023 [email or web address] _[facility], [address] [place] [address], [address], 3 19:07:26 culture, urine 2022 023 [email or web address] [facility], [address] [place] [address], [place], [address], 3 19:39:46 urinalysis , dipstick 2022 023 [email or web address] [facility], [address] [place] [address], [address], 3 20:12:31 test, urine 2022 023 [email or web address] [facility], [address] [place] [address], [address], 3 20:12:31 culture, urine 2022 023 [facility] ([facility], [address] [place] [address], [place], [address], 3 15:51:57 rapid strep group A, throat 2021 022 [email or web address] 5 _[facility], [address] [place] [address], [address], 2 18:30:46 rapid flu (A+B) 2021 022 [email or web address] 5 _[facility], [address] [place] [address], [place], [address], 2 18:30:46 rapid SARS CoV 2 Ag, QL IA, respirator y specimen 2021 022 5 _[facility], [address] [place] [address], [place], [address], 2 18:30:46 Referral None recorded. Procedures None recorded. Surgeries None recorded. Imaging None recorded. Medication Orders Macrobid 100 mg capsule 2022 023 [facility]acy #[id number], [address], [place], [address], 3 19:07:28 nitrofuran toin monohydrat e/macrocry stals 100 mg capsule 2022 023 kevin [facility]/Pharmacy #2339, [address], [place], [address], 3 18:28:08 acetaminop hen 325 mg tablet 2021 022 [facility]acy #2339, [address], [place], [address], 2 18:43:07 Patient TargetsNo targets recorded. Patient Instructions Encounter Date Encounter Id Patient Instructions Last Modified By Organization Details Last Modified Time 09/20/2022 [id number] sore throat: rody pate instructions [email or web address] Not available 09/20/2022 18:30:46 Go to the [facility] emergency department if you develop [...] of water. Not available 09/20/2022 18:25:38 11/02/2022 [id number] urinary tract infection in women information [email or web address] Not available 11/02/2022 20:12:31 You are going [...] antibiotic was prescribed. Thank you for using [facility] - please don't hesistate to call our office if you have any questions or concerns. [email or web address] Not available 11/02/2022 20:12:18 11/17/2022 [id number] We recommend you get a repeat urinalysis [...] men Unknown Analyte negati ve Not Available [address], [address], 09/20/2022 17:57:52 09/20/20 22 09/20/2022 rapid strep group A, throa t Unknown Analyte negati ve Not Available [address] [place] [address], [address], 09/20/2022 17:52:10 09/20/20 22 09/20/2022 rapid flu (A+B) Unknown Analyte positi ve Not Available [address] [place] [address], [address], 09/20/2022 17:57:47 09/20/20 22 09/20/2022 rapid flu (A+B) Unknown Analyte negati ve Not Available [address] [place] [address], [address], 09/20/2022 17:57:47 11/02/19 23 11/02/2022 pregn angela test, urine Unknown Analyte Normal = Negati ve Not Available 2099leena lee [address], [place], [address], 11/02/2022 20:03:07 11/02/19 23 11/02/2022 pregn angela test, urine Unknown Analyte negati ve Not Available 2099leena lee [address], [place], [address], 11/02/2022 20:03:07 11/02/19 23 11/02/2022 urina lysis , dipst ick Unknown Analyte Normal = light yellow Not Available 2099leena lee [address], [place], [address], 11/02/2022 19:48:57 11/02/1911/02/2022 urina lysis , dipst ick Unknown Analyte Light Yellow Not Available 2099leena lee [address], [place], [address], 11/02/2022 19:48:57 11/02/19 23 11/02/2022 urina lysis , dipst ick Unknown Analyte Normal = clear Not Available leena lee [address], [place], [place], [address], 11/02/2022 19:48:57 11/02/19 23 11/02/2022 urina lysis , dipst ick Unknown Analyte Clear Not Available [address], [place], [place], [address], 11/02/2022 19:48:57 11/02/19 23 11/02/2022 urina lysis , dipst ick Unknown Analyte Normal = negati ve Not Available leena lee [address], [place], [place], [address], 11/02/2022 19:48:57 11/02/19 23 11/02/2022 urina lysis , dipst ick Unknown Analyte Negati ve Not Available 2099leena lee [address], [place], [address], 11/02/2022 19:48:57 11/02/19 23 11/02/2022 urina lysis , dipst ick Unknown Analyte Normal = Negati ve Not Available 2099leena [address], [place], [address], 11/02/2022 19:48:57 11/02/1911/02/2022 urina lysis , dipst ick Unknown Analyte Negati ve Not Available [facility] [address], [place], [address], 11/02/2022 19:48:57 11/02/19 23 11/02/2022 urina lysis , dipst ick Unknown Analyte Normal = Negati ve Not Available leena [address], [place], [address], 11/02/2022 19:48:57 11/02/1911/02/2022 urina lysis , dipst ick Unknown Analyte Negati ve Not Available leena [address], [place], [address], 11/02/2022 19:48:57 11/02/19 23 11/02/2022 urina lysis , dipst ick Unknown Analyte Normal = 1.010, 1.015, 1.020 Not Available [facility] [address], [place], [address], 11/02/2022 19:48:57 11/02/19 23 11/02/2022 urina lysis , dipst ick Unknown Analyte 1.020 Not Available [address] [place] [address] Drive, [place], [address], 11/02/2022 19:48:57 11/02/1911/02/2022 urina lysis , dipst ick Unknown Analyte Normal = Negati ve Not Available leena lee emem[address], [place], [address], 11/02/2022 19:48:57 11/02/19 23 11/02/2022 urina lysis , dipst ick Unknown Analyte Negati ve Not Available leena pe emem[address], [place], [address], 11/02/2022 19:48:57 11/02/1911/02/2022 urina lysis , dipst ick Unknown Analyte Normal = 6.5, 7.0, 7.5, 8.0 Not Available leena lee emem[address], [place], [address], 11/02/2022 19:48:57 11/02/19 23 11/02/2022 urina lysis , dipst ick Unknown Analyte 6.5 Not Available thelma [address], [place], [address], 11/02/2022 19:48:57 11/02/1911/02/2022 urina lysis , dipst ick Unknown Analyte Normal = Negati ve Not Available [facility]ena pe [facility], [place], [address], 11/02/2022 19:48:57 11/02/1911/02/2022 urina lysis , dipst ick Unknown Analyte Negati ve Not Available leena pe emem[address], [place], [address], 11/02/2022 19:48:57 02/10/21 2211/02/2022 urina lysis , dipst ick Unknown Analyte Normal = 0.2, 1.0 Not Available leena lee [address], [place], [address], 11/02/2022 19:48:57 11/02/19 23 11/02/2022 urina lysis , dipst ick Unknown Analyte 0.2 E.U./d L Not Available [facility] [address], [place], [address], 11/02/2022 19:48:57 11/02/1911/02/2022 urina lysis , dipst ick Unknown Analyte Normal = Negati ve Not Available [facility] [address], [place], [place], [address], 11/02/2022 19:48:57 11/02/1911/02/2022 urina lysis , dipst ick Unknown Analyte Negati ve Not Available leena [address], [place], [address], 11/02/2022 19:48:57 11/02/1911/02/2022 urina lysis , dipst ick Unknown Analyte Normal = Negati ve Not Available [facility] [address], [place], [address], 11/02/2022 19:48:57 11/02/1911/02/2022 urina lysis , dipst ick Unknown Analyte Negati ve Not Available [address], [place], [address], 11/02/2022 19:48:57 11/17/19 23 11/17/2022 pregn angela test, urine Unknown Analyte Normal = Negati ve Not Available [address], [place], [address], 11/17/2022 18:41:03 11/17/19 23 11/17/2022 pregn angela test, urine Unknown Analyte negati ve Not Available [facility] [address], [place], [address], 11/17/2022 18:41:03 11/17/19 23 11/17/2022 urina lysis , dipst ick Unknown Analyte Normal = light yellow Not Available [address] [place] [address], [place], [address], 11/17/2022 18:40:51 11/17/19 23 11/17/2022 urina lysis , dipst ick Unknown Analyte Normal = clear Not Available [address], [place], [address], 11/17/2022 18:40:51 11/17/19 23 11/17/2022 urina lysis , dipst ick Unknown Analyte Normal = negati ve Not Available [address], [place], [address], 11/17/2022 18:40:51 11/17/19 23 11/17/2022 urina lysis , dipst ick Unknown Analyte Normal = Negati ve Not Available [address], [place], [address], 11/17/2022 18:40:51 11/17/19 23 11/17/2022 urina lysis , dipst ick Unknown Analyte Normal = Negati ve Not Available [address], [place], [address], 11/17/2022 18:40:51 11/17/19 23 11/17/2022 urina lysis , dipst ick Unknown Analyte Normal = 1.010, 1.015, 1.020 Not Available leena lee [address], [place], [address], 11/17/2022 18:40:51 11/17/19 23 11/17/2022 urina lysis , dipst ick Unknown Analyte Normal = Negati ve Not Available 2099[facility] lee [address], [place], [address], 11/17/2022 18:40:51 11/17/19 23 11/17/2022 urina lysis , dipst ick Unknown Analyte Normal = 6.5, 7.0, 7.5, 8.0 Not Available 2099leena lee [address], [place], [address], 11/17/2022 18:40:51 11/17/19 23 11/17/2022 urina lysis , dipst ick Unknown Analyte Normal = Negati ve Not Available [facility] [address], [place], [address], 11/17/2022 18:40:51 11/17/19 23 11/17/2022 urina lysis , dipst ick Unknown Analyte Normal = 0.2, 1.0 Not Available 20[facility] lee [address], [place], [address], 11/17/2022 18:40:51 11/17/19 23 11/17/2022 urina lysis , dipst ick Unknown Analyte Normal = Negati ve Not Available 2099leena lee [address], [place], [address], 11/17/2022 18:40:51 11/17/19 23 11/17/2022 urina lysis , dipst ick Unknown Analyte Normal = Negati ve Not Available 20[facility] lee [address], [place], [address], 11/17/2022 18:40:51 11/17/19 23 11/17/2022 urina lysis , dipst ick Unknown Analyte Yellow Not Available thelma [address], [place], [address], 11/17/2022 18:40:51 11/17/19 23 11/17/2022 urina lysis , dipst ick Unknown Analyte Clear Not Available thelma [address], [place], [address], 11/17/2022 18:40:51 11/17/19 23 11/17/2022 urina lysis , dipst ick Unknown Analyte Negati ve Not Available leena lee [address], [place], [address], 11/17/2022 18:40:51 11/17/19 23 11/17/2022 urina lysis , dipst ick Unknown Analyte Negati ve Not Available leena lee [address], [place], [address], 11/17/2022 18:40:51 11/17/19 23 11/17/2022 urina lysis , dipst ick Unknown Analyte Negati ve Not Available leena lee [address], [place], [address], 11/17/2022 18:40:51 11/17/19 23 11/17/2022 urina lysis , dipst ick Unknown Analyte 1.020 Not Available thelma [address], [place], [place], [address], 11/17/2022 18:40:51 11/17/19 23 11/17/2022 urina lysis , dipst ick Unknown Analyte Negati ve Not Available leena lee [address], [place], [place], [address], 11/17/2022 18:40:51 11/17/19 23 11/17/2022 urina lysis , dipst ick Unknown Analyte 7.0 Not Available thelma [address], [place], [address], 11/17/2022 18:40:51 11/17/19 23 11/17/2022 urina lysis , dipst ick Unknown Analyte Negati ve Not Available leena lee [address], [place], [address], 11/17/2022 18:40:51 11/17/19 23 11/17/2022 urina lysis , dipst ick Unknown Analyte 0.2 E.U./d L Not Available leena lee [address], [place], [address], 11/17/2022 18:40:51 11/17/19 23 11/17/2022 urina lysis , dipst ick Unknown Analyte Negati ve Not Available leena lee [address], [place], [address], 11/17/2022 18:40:51 11/17/19 23 11/17/2022 urina lysis , dipst ick Unknown Analyte Negati ve Not Available leena lee [address], [place], [address], 11/17/2022 18:40:51 Result Notes None recorded. Problems Name Problem SNOMED Code Status Onset Date Resolution Date Notes Provider Name and Address Organization Details Recorded Time Insomnia 102348191 Active 2021 EDIE Rivera - [facility] 17:56:19 Depressive disorder 63481936 Active 2021 JAZMIN gaspar [place] - [facility] 17:56:26 Bipolar disorder 50449281 Active 2021 JAZMIN KUMAR null, PA - [facility] 2 17:56:36 Migraine 88140867 Active 2021 JAZMIN KUMAR null, PA - [facility] 2 17:56:43 Gastroesophage al reflux disease 166000466 Active 2021 JAZMIN KUMAR null, PA - [facility] 2 17:56:49 Asthma 940171138 Active 2021 JAZMIN KUMAR null, PA - [facility] 2 17:56:57 Constipation 32439825 Active 2021 JAZMIN KUMAR null, PA - [facility] 2 17:57:06 Problem Notes None recorded. Medical Equipment None Reported. Allergies Allergen ID Allergen Name Allergen Category Reaction Reaction Severity Criticality Documentation Date Start Date Code Code System Note Provider Name and Address Organization Details Recorded Time 52243 Miralax medicatio n Not available Not available Not available 09/20/2022 88706 5 RxNorm JAZMIN KUMAR null, PA - [facility] 2 17:54:12 61154 amoxicill in medicatio n Not available Not available Not available 09/20/2022 723 RxNorm JAZMIN BRUNOEY null, PA - [facility] 2 17:54:16 10765 Product containin g penicilli n (product) medicatio n Not available Not available Not available 09/20/2022 39601 8001 SNOMED JAZMIN BRUNOEY null, PA - [facility] 2 17:54:22 79502 sulindac medicatio n Not available Not available Not available 09/20/2022 05380 RxNorm JAZMIN KUMAR null, PA - [facility] 2 17:54:29 97929 sennoside s, CARE HOME medicatio n Not available Not available Not available 09/20/2022 05009 RxNorm JAZMIN KUMAR null, [facility] - [facility] [...] Updated DateTime 09/20/2022 162.56 cm 35.9 kg/m2 04673.81 g JAZMIN IRIZARRY - [facility] 09/20/2022 [...] Updated DateTime 3 162.56 cm 35.9 kg/m2 63079.8 1 g 10 99 % 99 % 81 /min 20 /min 97.8 [degF] 147 mm[Hg] 98 mm[Hg] Maeve Bell PA - [facility] 3 19:44:52 Date Recorded Systolic blood pressure Diastolic blood pressure Provider Name and Address Organization Details Last Updated DateTime 11/02/2022 132 mm[Hg] 84 mm[Hg] EDIE STEVE [facility] Forthua [place]jo[place]ARRI[place], [address], [place] - [facility] 11/02/2022 20:13:06 Date Recorded Body height Body mass index (BMI) Body weight Pain severity Cruz-Marcus FACES pain rating scale Oxygen saturation Oxygen saturation in Arterial blood by Pulse oximetry Heart rate Respiratory rate Body temperature Systolic blood pressure Diastolic blood pressure Provider Name and Address Organization Details Last Updated DateTime 3 162.56 cm 35.9 kg/m2 38236.8 1 g 5 97 % 97 % 95 /min 18 /min 97.9 [degF] 143 mm[Hg] 88 mm[Hg] Maeve Bell [place] - [facility] 3 18:40:21 Social History Question Answer Notes LastModified by Organizat ion Details LastModified Time Tobacco Smoking Status Former Smoker JAZMIN gaspar PA - [facility] 09/20/2022 17:57:37 What Is Your Level Of Alcohol Consumption? None [email or web address] Information not available 09/20/2022 When Did You Quit Smoking? 1-5yearssin celastcigar ette [email or web address] Information not available 09/20/2022 Do You Use Any Illicit Or Recreational Drugs? No [email or web address] Information not available 09/20/2022 Have You Recently Traveled Abroad? No Information not available 09/20/2022 Do You Or Have You Ever Used Any Other Forms Of Tobacco Or Nicotine? No [email or web address] Information not available 09/20/2022 Sex: Unknown Functional Status None recorded. Mental Status None recorded. Family History Relationship Description Onset Age of this Age Resolved Age Notes LastModified by Organization Details LastModified Time Father No current problems or disability [email or web address] Not available 09/20 17:57:14 Mother No current [...] SNOMED-CT Code Diagnosis ICD10 Code Diagnosis Note [id number] [facility] [address] [place] [address] 03/01/2018 19:08:03 03/01/2018 20:09:30 [id number] [facility] [address] [place] [address] 04/20/2021 11:47:11 04/20/2021 12:34:46 [id number] EDIE Robles [facility] [address] [place] [address] 09/20/2022 17:17:57 09/20/2022 18:38:19 Influenza caused by Influenza A virus 203230092 J09.X2 [id number] [facility] [address] [place] [address] 11/02/2022 19:02:21 11/02/2022 20:15:12 Dysuria 55019804 R30.0 [id number] Sanya Suárez, LOTTERY CLERK [address] [facility] [address] [address] 11/17/2022 16:39:43 11/17/2022 19:10:36 Acute urinary tract infection 112345399 N39.0 Health Concerns Section Related Observation LastModified by Organization Detai ls LastModified Time None Recorded Concern Status LastModified by Organization Details LastModified Time None Recorded Advance Directives Directive None Recorded Payers Encounter Date Sequence Insurance Name Policy Number Policy Tavarez Covered Member ID Tavarez Member ID Guarantor Name 03/01/[address] [facility] NET PLAN (MEDICAID HMO) MARY JANE Cartwright [id number] Lidmary Caregiver 04/20/[address] [facility] NET PLAN (MEDICAID HMO) MARY JANE Cartwright [id number] Lidmary Caregiver 09/20/[address] [facility] NET PLAN (MEDICAID HMO) MARY JANE Cartwright [id number] Lidmary Caregiver 11/02/[address] [facility] NET PLAN (MEDICAID HMO) MARY JANE Cartwright [id number] Lidmary Caregiver 11/17/[address] [facility] NET PLAN (MEDICAID HMO) MARY JANE Cartwright [id number] Lidmary Caregiver Notes Date Note Type Note Provider Name and Address Organization Details Recorded Time 2 text/html Sore throatReported bypatient.Notes:Pt and caregiver report cough, sore throat, congestion, fatigue x 3-4 days. Taking OTC naproxen and using albuterol as previously prescribed. Denies fever, SOB, wheezing currently. EDIE Robles [address] [place], [address], [place] - [facility] 09/20/2022 18:43:28 3 [...] Suárez NP [address] [place], [address], [place] - [facility] 11/17/2022 19:08:05 OBGyn Episode No OBEpisode recorded.
--- OUTSIDE RECORDS SUMMARY | 2024-12-09 14:02 | XMS_ITS | Clinical Summary ---
Author Organization [employer] it Address [address] [place] [address] Care Team Providers Care Barrel Assembler Helper Name Role Phone Fernandez Tyler MD Primary Care Provider [phone] Surgical History Surgery Date Site/Laterality Comments BREAST [...] age to complete this topic Care Teams Barrel Assembler Helper Relationship Specialty Start Date End Date Fernandez Tyler MD [address] [place] [address] Drive [address] [place] [address] PCP - General Internal Medicine 03/19/14
== END 2024-12-09 14:41 | disposition home or self-care (01) ==
PROVIDERS: PCP Internal Medicine; Visit Provider Internal Medicine
DX: I10 Essential (primary) hypertension (principal); E66.01 Morbid (severe) obesity due to excess calories; Z68.41 Body mass index [BMI] 40.0-44.9, adult

== ENCOUNTER 2024-12-09 12:29 | Outpatient (REF) | payer OTHER, SELFPAY ==
--- OUTSIDE RECORDS SUMMARY | 2024-12-09 15:35 | XMS_ITS | Clinical Summary ---
Author Organization [employer] it Address [address] [place] [address] Care Team Providers Care Health Service Coordinator Name Role Phone Fernandez Tyler MD Primary Care Provider [phone] Surgical History Surgery Date Site/Laterality Comments BREAST [...] age to complete this topic Care Teams Health Service Coordinator Relationship Specialty Start Date End Date Fernandez Tyler MD [address] [place] [address] Drive [address] [place] [address] PCP - General Internal Medicine 03/19/14
[2024-12-09 16:37] LABS: Anion Gap 12 (12-20); Blood Urea Nitrogen 17 mg/dL (9-16); Calcium 9.7 mg/dL (8.4-10.2); Carbon Dioxide 24 mmol/L (22-29); Chloride 107 mmol/L (96-108); Estimated Glomerular Filt Rate 29; Glucose Random 99 mg/dL (60-115); Potassium 3.6 mmol/L (3.3-5.1); Sodium 139 mmol/L (135-145)
== END 2024-12-09 12:30 | disposition home or self-care (01) ==
LOC: HO.HMGCLDS 12:29
PROVIDERS: PCP Internal Medicine; Visit Provider Internal Medicine
DX: I10 Essential (primary) hypertension (principal); N17.9 Acute kidney failure, unspecified; E66.01 Morbid (severe) obesity due to excess calories; Z68.41 Body mass index [BMI] 40.0-44.9, adult
CPT/HCPCS: 36415; 80048; 96127; 99212

== ENCOUNTER 2024-12-13 09:40 | Outpatient (AMB) | payer OTHER, SELFPAY ==
--- NOTE | 2024-12-13 09:54 | HO.NEPHOV_ITS ---
Vital Signs 12/13/24 09:59 Height 5 ft 3 in Weight 225 lb 6 oz BMI 39.9 BP 150/110 H Blood Pressure Location Lt brachial Position Sitting Pulse 86 Pulse Source Pulse Oximeter Pulse Oximetry (%) 99 Oxygen Delivery Method Room Air Intake Visit Reasons: worsening creat-No Voicemail Product Management Analyst Required: No Accompanied by: Other Relationship Allergies amoxicillin [AMOXICILLIN] Allergy (Severe, Verified 12/13/24 09:58) ANAPHYLAXIS, swelling Penicillins [PENICILLINS] Allergy (Severe, Verified 12/13/24 09:58) ANAPHYLAXIS polyethylene glycol 3350 [From MIRALAX] Allergy (Severe, Verified 12/13/24 09:58) ANAPHYLAXIS sulindac [SULINDAC] Allergy (Severe, Verified 12/13/24 09:58) SWELLING senna Allergy (Intermediate, Verified 12/13/24 09:58) Unknown seafood Allergy (Verified 12/13/24 09:58) Hives HPI Comments Details: Cassidy is a 34 year old patient with hypertension who is currently on Verapamil 240 mg daily. She also takes Clonidine at night for mental health reasons. She does not check/ monitor her BP at home. She has no history of diabetes mellitus, palpitation, orthostasis. She has high BMI and is not very strict with low-sodium diet. She has no history of glomerular diseases. Her renal function had been getting worse and now has been having some proteinuria. She denies using drugs other than Marijuana. She does not takes nonsteroidal anti-inflammatories regularly. She denies chest pain, shortness of breath, proximal nocturnal dyspnea, orthopnea, pedal edema, hematuria, or renal calculi. She denies any systemic complaints [facility] Medical History (Updated 12/09/24 @ 13:46 by Mindy Hutchinson MD) Possible exposure to STD Breast mass, right Morbid obesity with BMI of 40.0-44.9, adult Hypertension Annual visit for general adult medical examination with abnormal findings Heart murmur, systolic Breast pain Right Achilles tendinitis Erythema intertrigo External hemorrhoids Bleeding hemorrhoids Vitamin D deficiency Heel callus Mild intermittent asthma in adult without complication Ex-cigarette smoker Motion sickness Mild intellectual disability Porcelain gallbladder Migraine Depression with anxiety Dysmenorrhea 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 Brother No problems noted. Brother No problems noted. Maternal Aunt Breast cancer Maternal Grandmother Hypertension Social History Household Members: Caregiver Housing: House [facility] Other[facility] Are you a primary long term care phlebotomist to a significant other at home: No Do you presently have visiting nurse or other home services: Yes (24 hr cargiver) Alcohol intake: never Patient Tobacco Use Status: Current everyday Tobacco user Tobacco use type: Cigarette Cigarettes Per Day: 4 Years Smoked: 19 e-Cigarette/Vaping Use: Never Used Second Hand Smoke Exposure: No Substance Use Type: Marijuana service: No 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al status: disabled 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 Cognitive needs: No Hearing needs: No Vision needs: Yes Female Reproductive History Menstrual Age of Menarche: 13 Review of Systems Const All systems reviewed & are unremarkable except as noted in HPI and below Physical Exam Vital Signs: Last Vital Signs Pulse 86 12/13/24 09:59 BP 150/110 H 12/13/24 09:59 Pulse Ox 99 12/13/24 09:59 Oxygen Delivery Method Room Air 12/13/24 09:59 BMI result Body Mass Index 39.9 Const General: comfortable and no acute distress Orientation/consciousness: patient oriented x3 HEENT Head: Yes normocephalic Mouth: Normal oral and palatal mucosa present Neck Neck: Yes supple Resp Auscultation: clear to auscultation bilaterally Cardio Jugular venous distension: no JVD Rate: regular rate GI Palpation (GI): Soft to palpation Auscultation: normal bowel sounds General: Yes no CVA tenderness Back/Spine/Pelvis Back: no CVA tenderness Skin General skin exam: no rashes or lesions noted Neuro General: patient oriented x3 and moves all extremities Extrem General: Yes no pedal edema Results Reviewed Nephrology Results: Hgb 11.6 g/dl (12.0-16.0) L 12/13/24 WBC 7.1 X10*3/uL (4.8-10.8) 12/13/24 Plt Count 144 X10*3/uL (160-400) L 12/13/24 Sodium 140 mmol/L (135-145) 12/13/24 Potassium 3.7 mmol/L (3.3-5.1) 12/13/24 Chloride 106 mmol/L (96-108) 12/13/24 Carbon Dioxide 26 mmol/L (22-29) 12/13/24 BUN 16 mg/dL (9-16) 12/13/24 Creatinine 2.13 mg/dL (0.5-1.4) H 12/13/24 Calcium 9.3 mg/dL (8.4-10.2) 12/13/24 Urine Protein 300 (3+) mg/dL (Neg-Trace) H 12/13/24 Urine Creatinine Pending 12/13/24 Protein/Creatinin Ratio Pending 12/13/24 Assessment & Plan Assessment & Plan (1) PEYTON (acute kidney injury): Code(s): N17.9 - Acute kidney failure, unspecified Category: Medical (2) Hypertension: Code(s): I10 - Essential (primary) hypertension Category: Medical Qualifiers: Hypertension type: primary hypertension Qualified Code(s): I10 - Essential (primary) hypertension Plan Cassidy has hypertension. She has high BMI. She is at risk for secondary FSGS. Her renal functions are getting worse ( ? tubular injury vs GN etc). She is not a diabetic. She does not monitor blood pressure at home. She is not compliant with low-sodium diet. She has symptoms suggestive of sleep apnea. Doppler of her renal arteries was negative. She was encouraged to lose weight and maintain low-sodium diet. She will benefit from sleep study. Follow up labs ordered. She may need a renal biopsy .All these have been discussed in detail. Follow up given in 2 weeks Orders: Orders UA and rflx microscopic Today N17.9 - Acute kidney failure, unspecified Anti DNA DS Antibody Today N17.9 - Acute kidney failure, unspecified Myeloperoxidase Antibody Today N17.9 - Acute kidney failure, unspecified Phospholipase A2 Receptor Pnl Today N17.9 - Acute kidney failure, unspecified Scleroderma 70 Antibody Today N17.9 - Acute kidney failure, unspecified Sm Sm/RIDES SUPERVISOR Antibodies Today N17.9 - Acute kidney failure, unspecified Sjogren's Antibodies Today N17.9 - Acute kidney failure, unspecified Hepatitis B Core Antibody Today N17.9 - Acute kidney failure, unspecified Prothrombin Time INR Today N17.9 - Acute kidney failure, unspecified Blood Urea Nitrogen Today N17.9 - Acute kidney failure, unspecified Electrolytes Today N17.9 - Acute kidney failure, unspecified Calcium Today N17.9 - Acute kidney failure, unspecified Creatinine Today I10 - Essential (primary) hypertension, N17.9 - Acute kidney failure, unspecified Electrolytes 2 Weeks I10 - Essential (primary) hypertension, N17.9 - Acute kidney failure, unspecified Protein Creatinine Ratio, Ur Today N17.9 - Acute kidney failure, unspecified Proteinase 3 PR3 Antibodies Today N17.9 - Acute kidney failure, unspecified Anti Glomerular Basement Memb Today N17.9 - Acute kidney failure, unspecified Complement C3 Today N17.9 - Acute kidney failure, unspecified Streptolysin O Antibody Today N17.9 - Acute kidney failure, unspecified Complement C4 Today N17.9 - Acute kidney failure, unspecified Immunofixation Pnl, Serum Today N17.9 - Acute kidney failure, unspecified Hepatitis B Surface Antigen Today N17.9 - Acute kidney failure, unspecified Complete Blood Count Auto Diff Today N17.9 - Acute kidney failure, unspecified Creatinine Today N17.9 - Acute kidney failure, unspecified Blood Urea Nitrogen 2 Weeks I10 - Essential (primary) hypertension, N17.9 - Acute kidney failure, unspecified Medications: Resumed spironolactone 25 mg PO DAILY 30 tabs 3RF Coding Level of Care Code Est Pt Level 4 (20225) Diagnoses PEYTON (acute kidney injury) N17.9 Primary hypertension I10 Hypertension type: primary hypertension
[2024-12-13 09:59] VITALS: BP 150/110; PULSE 86; O2SAT 99; BMI 39.9
--- OUTSIDE RECORDS SUMMARY | 2024-12-13 10:38 | XMS_ITS | Clinical Summary ---
Author Organization [facility] it Address [address] [place] [address] Care Team Providers Care Rubber Cutter And Shape Carver Name Role Phone Fernandez Tyler MD Primary Care Provider Surgical History Surgery Date Site/Laterality Comments BREAST [...] age to complete this topic Care Teams Rubber Cutter And Shape Carver Relationship Specialty Start Date End Date Fernandez Tyler MD [address] [place] [address] Drive [address] [place] [address] PCP - General Internal Medicine 03/19/14
--- OUTSIDE RECORDS SUMMARY | 2024-12-13 10:38 | XMS_ITS | Data Portability ---
Author Organization EDIE [facility]elaya [facility] Address [address] [place] [address] Care Team Providers Care Field Interviewer Name Role Phone DANTE MARTINES Primary Care Provider Assessment No assessment recorded. Plan of Treatment Reminders Order Date Submit Date Provider Last Modified By Organization Details Last Modified Time Details Appointments None recorded. Lab urinalysis , dipstick 2022 023 [email or web address] [facility], [address] [place] [address], [address], 3 19:07:26 test, urine 2022 023 [email or web address] _[facility], [address] [place] [address], [address], 3 19:07:26 culture, urine 2022 023 [email or web address] [facility] [place], [address] [place] [address], [place], [address], 3 19:39:46 urinalysis , dipstick 2022 023 [email or web address] [facility], [address] [place] [address], [address], 3 20:12:31 test, urine 2022 023 [email or web address] [facility], [address] [place] [address], [address], 3 20:12:31 culture, urine 2022 023 [email or web address] ([facility], [address] [place] [address], [place], [address], 3 15:51:57 rapid strep group A, throat 2021 022 [email or web address] 5 _[facility], [address] [place] [address], [address], 2 18:30:46 rapid flu (A+B) 2021 022 [email or web address] 5 _[facility], [address] [place] [address], [place], [address], 2 18:30:46 rapid SARS CoV 2 Ag, QL IA, respirator y specimen 2021 022 [email or web address] 5 _[facility], [address] [place] [address], [place], [address], 2 18:30:46 Referral None recorded. Procedures None recorded. Surgeries None recorded. Imaging None recorded. Medication Orders Macrobid 100 mg capsule 2022 023 [id number], [address], [place], [address], 3 19:07:28 nitrofuran toin monohydrat e/macrocry stals 100 mg capsule 2022 023 kevin [facility]/Ph[facility]acy #[id number], [address], [place], [address], 3 18:28:08 acetaminop hen 325 mg tablet 2021 022 [id number], [address], [place], [address], 2 18:43:07 Patient TargetsNo targets recorded. Patient Instructions Encounter Date Encounter Id Patient Instructions Last Modified By Organization Details Last Modified Time 09/20/2022 [id number] sore throat: rody pate instructions [email or web address] Not available 09/20/2022 18:30:46 Go to the [facility] emergency department if you develop [...] without a prescription. Drink plenty of water. [email or web address] Not available 09/20/2022 18:25:38 11/02/2022 [id number] urinary tract infection in women information [email or web address] Not available 11/02/2022 20:12:31 You are going [...] antibiotic was prescribed. Thank you for using [employer] - please don't hesistate to call our office if you have any questions or concerns. Not available 11/02/2022 20:12:18 11/17/2022 [id number] We recommend you get a repeat urinalysis [...] men Unknown Analyte negati ve Not Available [address], [address], 09/20/2022 17:57:52 09/20/20 22 09/20/2022 rapid strep group A, throa t Unknown Analyte negati ve Not Available [address] [place] [address], [address], 09/20/2022 17:52:10 09/20/20 22 09/20/2022 rapid flu (A+B) Unknown Analyte positi ve Not Available [address] [place] [address], [address], 09/20/2022 17:57:47 09/20/20 22 09/20/2022 rapid flu (A+B) Unknown Analyte negati ve Not Available [address] [place] [address], [address], 09/20/2022 17:57:47 11/02/19 23 11/02/2022 pregn angela test, urine Unknown Analyte Normal = Negati ve Not Available 2099leena lee [address], [place], [address], 11/02/2022 20:03:07 11/02/19 23 11/02/2022 pregn angela test, urine Unknown Analyte negati ve Not Available 2099leena lee [address], [place], [address], 11/02/2022 20:03:07 11/02/19 23 11/02/2022 urina lysis , dipst ick Unknown Analyte Normal = light yellow Not Available 2099leena lee [address], [place], [address], 11/02/2022 19:48:57 11/02/1911/02/2022 urina lysis , dipst ick Unknown Analyte Light Yellow Not Available 2099leena lee [address], [place], [address], 11/02/2022 19:48:57 11/02/19 23 11/02/2022 urina lysis , dipst ick Unknown Analyte Normal = clear Not Available leena lee [address], [place], [place], [address], 11/02/2022 19:48:57 11/02/19 23 11/02/2022 urina lysis , dipst ick Unknown Analyte Clear Not Available [address], [place], [place], [address], 11/02/2022 19:48:57 11/02/19 23 11/02/2022 urina lysis , dipst ick Unknown Analyte Normal = negati ve Not Available leena lee [address], [place], [place], [address], 11/02/2022 19:48:57 11/02/19 23 11/02/2022 urina lysis , dipst ick Unknown Analyte Negati ve Not Available 2099leena lee [address], [place], [address], 11/02/2022 19:48:57 11/02/19 23 11/02/2022 urina lysis , dipst ick Unknown Analyte Normal = Negati ve Not Available 2099leena [address], [place], [address], 11/02/2022 19:48:57 11/02/1911/02/2022 urina lysis , dipst ick Unknown Analyte Negati ve Not Available [facility] [address], [place], [address], 11/02/2022 19:48:57 11/02/19 23 11/02/2022 urina lysis , dipst ick Unknown Analyte Normal = Negati ve Not Available leena [address], [place], [address], 11/02/2022 19:48:57 11/02/1911/02/2022 urina lysis , dipst ick Unknown Analyte Negati ve Not Available leena [address], [place], [address], 11/02/2022 19:48:57 11/02/19 23 11/02/2022 urina lysis , dipst ick Unknown Analyte Normal = 1.010, 1.015, 1.020 Not Available [facility] [address], [place], [address], 11/02/2022 19:48:57 11/02/19 23 11/02/2022 urina lysis , dipst ick Unknown Analyte 1.020 Not Available [address] [place] [address] Drive, [place], [address], 11/02/2022 19:48:57 11/02/1911/02/2022 urina lysis , dipst ick Unknown Analyte Normal = Negati ve Not Available leena lee emem[address], [place], [address], 11/02/2022 19:48:57 11/02/19 23 11/02/2022 urina lysis , dipst ick Unknown Analyte Negati ve Not Available leena pe emem[address], [place], [address], 11/02/2022 19:48:57 11/02/1911/02/2022 urina lysis , dipst ick Unknown Analyte Normal = 6.5, 7.0, 7.5, 8.0 Not Available leena lee emem[address], [place], [address], 11/02/2022 19:48:57 11/02/19 23 11/02/2022 urina lysis , dipst ick Unknown Analyte 6.5 Not Available thelma [address], [place], [address], 11/02/2022 19:48:57 11/02/1911/02/2022 urina lysis , dipst ick Unknown Analyte Normal = Negati ve Not Available [facility]ena pe [facility], [place], [address], 11/02/2022 19:48:57 11/02/1911/02/2022 urina lysis , dipst ick Unknown Analyte Negati ve Not Available leena pe emem[address], [place], [address], 11/02/2022 19:48:57 02/10/21 2211/02/2022 urina lysis , dipst ick Unknown Analyte Normal = 0.2, 1.0 Not Available leena lee [address], [place], [address], 11/02/2022 19:48:57 11/02/19 23 11/02/2022 urina lysis , dipst ick Unknown Analyte 0.2 E.U./d L Not Available [facility] [address], [place], [address], 11/02/2022 19:48:57 11/02/1911/02/2022 urina lysis , dipst ick Unknown Analyte Normal = Negati ve Not Available [facility] [address], [place], [place], [address], 11/02/2022 19:48:57 11/02/1911/02/2022 urina lysis , dipst ick Unknown Analyte Negati ve Not Available leena [address], [place], [address], 11/02/2022 19:48:57 11/02/1911/02/2022 urina lysis , dipst ick Unknown Analyte Normal = Negati ve Not Available [facility] [address], [place], [address], 11/02/2022 19:48:57 11/02/1911/02/2022 urina lysis , dipst ick Unknown Analyte Negati ve Not Available [address], [place], [address], 11/02/2022 19:48:57 11/17/19 23 11/17/2022 pregn angela test, urine Unknown Analyte Normal = Negati ve Not Available [address], [place], [address], 11/17/2022 18:41:03 11/17/19 23 11/17/2022 pregn angela test, urine Unknown Analyte negati ve Not Available [facility] [address], [place], [address], 11/17/2022 18:41:03 11/17/19 23 11/17/2022 urina lysis , dipst ick Unknown Analyte Normal = light yellow Not Available [address] [place] [address], [place], [address], 11/17/2022 18:40:51 11/17/19 23 11/17/2022 urina lysis , dipst ick Unknown Analyte Normal = clear Not Available [address], [place], [address], 11/17/2022 18:40:51 11/17/19 23 11/17/2022 urina lysis , dipst ick Unknown Analyte Normal = negati ve Not Available [address], [place], [address], 11/17/2022 18:40:51 11/17/19 23 11/17/2022 urina lysis , dipst ick Unknown Analyte Normal = Negati ve Not Available [address], [place], [address], 11/17/2022 18:40:51 11/17/19 23 11/17/2022 urina lysis , dipst ick Unknown Analyte Normal = Negati ve Not Available [address], [place], [address], 11/17/2022 18:40:51 11/17/19 23 11/17/2022 urina lysis , dipst ick Unknown Analyte Normal = 1.010, 1.015, 1.020 Not Available leena lee em[address], [place], [address], 11/17/2022 18:40:51 11/17/19 23 11/17/2022 urina lysis , dipst ick Unknown Analyte Normal = Negati ve Not Available [facility] [address], [place], [address], 11/17/2022 18:40:51 11/17/19 23 11/17/2022 urina lysis , dipst ick Unknown Analyte Normal = 6.5, 7.0, 7.5, 8.0 Not Available 2099leena lee [address], [place], [address], 11/17/2022 18:40:51 11/17/19 23 11/17/2022 urina lysis , dipst ick Unknown Analyte Normal = Negati ve Not Available [facility] [address], [place], [address], 11/17/2022 18:40:51 11/17/19 23 11/17/2022 urina lysis , dipst ick Unknown Analyte Normal = 0.2, 1.0 Not Available [facility] [address], [place], [address], 11/17/2022 18:40:51 11/17/19 23 11/17/2022 urina lysis , dipst ick Unknown Analyte Normal = Negati ve Not Available 2099leena lee [address], [place], [address], 11/17/2022 18:40:51 11/17/19 23 11/17/2022 urina lysis , dipst ick Unknown Analyte Normal = Negati ve Not Available [facility] [address], [place], [address], 11/17/2022 18:40:51 11/17/19 23 11/17/2022 urina lysis , dipst ick Unknown Analyte Yellow Not Available thelma [address], [place], [address], 11/17/2022 18:40:51 11/17/19 23 11/17/2022 urina lysis , dipst ick Unknown Analyte Clear Not Available thelma [address], [place], [address], 11/17/2022 18:40:51 11/17/19 23 11/17/2022 urina lysis , dipst ick Unknown Analyte Negati ve Not Available leena lee [address], [place], [address], 11/17/2022 18:40:51 11/17/19 23 11/17/2022 urina lysis , dipst ick Unknown Analyte Negati ve Not Available leena lee [address], [place], [address], 11/17/2022 18:40:51 11/17/19 23 11/17/2022 urina lysis , dipst ick Unknown Analyte Negati ve Not Available leena lee [address], [place], [address], 11/17/2022 18:40:51 11/17/19 23 11/17/2022 urina lysis , dipst ick Unknown Analyte 1.020 Not Available thelma [address], [place], [place], [address], 11/17/2022 18:40:51 11/17/19 23 11/17/2022 urina lysis , dipst ick Unknown Analyte Negati ve Not Available leena lee [address], [place], [place], [address], 11/17/2022 18:40:51 11/17/19 23 11/17/2022 urina lysis , dipst ick Unknown Analyte 7.0 Not Available thelma [address], [place], [address], 11/17/2022 18:40:51 11/17/19 23 11/17/2022 urina lysis , dipst ick Unknown Analyte Negati ve Not Available leena lee [address], [place], [address], 11/17/2022 18:40:51 11/17/19 23 11/17/2022 urina lysis , dipst ick Unknown Analyte 0.2 E.U./d L Not Available leena lee [address], [place], [address], 11/17/2022 18:40:51 11/17/19 23 11/17/2022 urina lysis , dipst ick Unknown Analyte Negati ve Not Available leena lee [address], [place], [address], 11/17/2022 18:40:51 11/17/19 23 11/17/2022 urina lysis , dipst ick Unknown Analyte Negati ve Not Available leena lee [address], [place], [address], 11/17/2022 18:40:51 Result Notes None recorded. Problems Name Problem SNOMED Code Status Onset Date Resolution Date Notes Provider Name and Address Organization Details Recorded Time Insomnia 214818880 Active 2021 EIDE Rivera - [facility] 17:56:19 Depressive disorder 07030549 Active 2021 JAZMIN gaspar PA - [facility] 17:56:26 Bipolar disorder 15056677 Active 2021 JAZMIN KUMAR null, PA - [facility] 2 17:56:36 Migraine 07635280 Active 2021 JAZMIN KUMAR null, PA - [facility] 2 17:56:43 Gastroesophage al reflux disease 724624987 Active 2021 JAZMIN KUMAR null, PA - [facility] 2 17:56:49 Asthma 212074160 Active 2021 JAZMIN KUMAR null, PA - [facility] 2 17:56:57 Constipation 80262607 Active 2021 JAZMIN KUMAR null, PA - [facility] 2 17:57:06 Problem Notes None recorded. Medical Equipment None Reported. Allergies Allergen ID Allergen Name Allergen Category Reaction Reaction Severity Criticality Documentation Date Start Date Code Code System Note Provider Name and Address Organization Details Recorded Time 29999 Miralax medicatio n Not available Not available Not available 09/20/2022 71404 5 RxNorm JAZMIN KUMAR null, PA - [facility] 2 17:54:12 51014 amoxicill in medicatio n Not available Not available Not available 09/20/2022 723 RxNorm JAZMIN BRUNOEY null, PA - [facility] 2 17:54:16 30422 Product containin g penicilli n (product) medicatio n Not available Not available Not available 09/20/2022 00972 8001 SNOMED JAZMIN BRUNOEY null, PA - [facility] 2 17:54:22 21261 sulindac medicatio n Not available Not available Not available 09/20/2022 59990 RxNorm JAZMIN KUMAR null, PA - [facility] 2 17:54:29 75093 sennoside s, CORRECTION medicatio n Not available Not available Not available 09/20/2022 48529 RxNorm J[facility]MIN KUMAR null, [facility] - [facility] [...] Updated DateTime 09/20/2022 162.56 cm 35.9 kg/m2 90705.81 g JAZMIN IRIZARRY - [facility] 09/20/2022 [...] Updated DateTime 3 162.56 cm 35.9 kg/m2 62074.8 1 g 10 99 % 99 % 81 /min 20 /min 97.8 [degF] 147 mm[Hg] 98 mm[Hg] Maeve Bell PA - [facility] 3 19:44:52 Date Recorded Systolic blood pressure Diastolic blood pressure Provider Name and Address Organization Details Last Updated DateTime 11/02/2022 132 mm[Hg] 84 mm[Hg] EDIE STEVE [facility] [place], [address], PA - [facility] 11/02/2022 20:13:06 Date Recorded Body height Body mass index (BMI) Body weight Pain severity Cruz-Marcus FACES pain rating scale Oxygen saturation Oxygen saturation in Arterial blood by Pulse oximetry Heart rate Respiratory rate Body temperature Systolic blood pressure Diastolic blood pressure Provider Name and Address Organization Details Last Updated DateTime 3 162.56 cm 35.9 kg/m2 89463.8 1 g 5 97 % 97 % 95 /min 18 /min 97.9 [degF] 143 mm[Hg] 88 mm[Hg] Maeve Bell MD - [facility] 3 18:40:21 Social History Question Answer Notes LastModified by Organizat ion Details LastModified Time Tobacco Smoking Status Former Smoker JAZMIN gaspar PA - [facility] 09/20/2022 17:57:37 What Is Your Level Of Alcohol Consumption? None [email or web address] Information not available 09/20/2022 When Did You Quit Smoking? 1-5yearssin celastcigar ette Information not available 09/20/2022 Do You Use Any Illicit Or Recreational Drugs? No [email or web address] Information not available 09/20/2022 Have You Recently Traveled Abroad? No [email or web address] Information not available 09/20/2022 Do You Or Have You Ever Used Any Other Forms Of Tobacco Or Nicotine? No Information not available 09/20/2022 Sex: Unknown Functional Status None recorded. Mental Status None recorded. Family History Relationship Description Onset Age of this Age Resolved Age Notes LastModified by Organization Details LastModified Time Father No current problems or disability [email or web address] Not available 09/20 17:57:14 Mother No current problems or disability [email or web address] Not available 09/20 17:57:14 Medical History No [...] SNOMED-CT Code Diagnosis ICD10 Code Diagnosis Note [id number] [facility] [address] [place] [address] 03/01/2018 19:08:03 03/01/2018 20:09:30 [id number] [facility] [address] [place] [address] 04/20/2021 11:47:11 04/20/2021 12:34:46 [id number] EDIE Robles [facility] [address] [place] [address] 09/20/2022 17:17:57 09/20/2022 18:38:19 Influenza caused by Influenza A virus 366079502 J09.X2 [id number] [facility] [address] [place] [address] 11/02/2022 19:02:21 11/02/2022 20:15:12 Dysuria 62570761 R30.0 [id number] Sanya Suárez, [employer] WORKER [address] [address] [address] 11/17/2022 16:39:43 11/17/2022 19:10:36 Acute urinary tract infection 137319381 N39.0 Health Concerns Section Related Observation LastModified by Organization Detai ls LastModified Time None Recorded Concern Status LastModified by Organization Details LastModified Time None Recorded Advance Directives Directive None Recorded Payers Encounter Date Sequence Insurance Name Policy Number Policy Tavarez Covered Member ID Tavarez Member ID Guarantor Name 03/01/2018 1 [facility] NET PLAN (MEDICAID HMO) MARY JANE Cartwright [id number] Lidmary Caregiver 04/20/2021 1 [facility] NET PLAN (MEDICAID HMO) MARY JANE Cartwright [id number] Lidmary Caregiver 09/20/2022 1 [facility] NET PLAN (MEDICAID HMO) MARY JANE Cartwright [id number] Lidmary Caregiver 11/02/2022 1 [facility] NET PLAN (MEDICAID HMO) MARY JANE Cartwright [id number] Lidmary Caregiver 11/17/2022 1 [facility] NET PLAN (MEDICAID HMO) MARY JANE Cartwright [id number] Lidmary Caregiver Notes Date Note Type Note Provider Name and Address Organization Details Recorded Time 2 text/html Sore throatReported bypatient.Notes:Pt and caregiver report cough, sore throat, congestion, fatigue x 3-4 days. Taking OTC naproxen and using albuterol as previously prescribed. Denies fever, SOB, wheezing currently. EDIE Robles [address] [place], [address], PA - [facility] 09/20/2022 18:43:28 3 [...] Suárez NP [address] [place], [address], PA - [facility] 11/17/2022 19:08:05 OBGyn Episode No OBEpisode recorded.
== END 2024-12-13 10:27 | disposition home or self-care (01) ==
LOC: HO.HKA 09:41
PROVIDERS: PCP Internal Medicine; Visit Provider Internal Medicine Nephrology
DX: N17.9 Acute kidney failure, unspecified (principal); I10 Essential (primary) hypertension
CPT/HCPCS: 99214

== ENCOUNTER → 2024-12-13 09:40 | Outpatient (BNVA) | payer OTHER, SELFPAY | PROVIDERS: PCP Internal Medicine; Visit Provider Internal Medicine Nephrology | DX: N17.9 Acute kidney failure, unspecified (principal); I10 Essential (primary) hypertension | CPT/HCPCS: 99212 ==

== ENCOUNTER 2024-12-13 10:33 | Outpatient (REF) | payer OTHER, SELFPAY ==
--- OUTSIDE RECORDS SUMMARY | 2024-12-13 12:00 | XMS_ITS | Clinical Summary ---
Author Organization [employer] it Address [address] [place] [address] Care Team Providers Care Intelligence Officer Basic Name Role Phone Fernandez Tyler MD Primary Care Provider [phone] Surgical History Surgery Date Site/Laterality Comments BREAST [...] age to complete this topic Care Teams Intelligence Officer Basic Relationship Specialty Start Date End Date Fernandez Tyler MD [address] [place] [address] Drive [address] [place] [address] PCP - General Internal Medicine 03/19/14
[2024-12-13 13:15] LABS: MANUAL DIFF FLAG NO
[2024-12-13 13:17] LABS: Basophils Absolute Auto 0.1 X10*3/uL (0.0-0.2); Basophils Percent Auto 0.8 % (0-2); Eosinophils Absolute Auto 0.1 X10*3/uL (0.0-0.4); Eosinophils Percent Auto 1.4 % (0-4); Hematocrit 33.3 % (37.0-47.0); Hemoglobin 11.6 g/dl (12.0-16.0); Imm Gran Abs Auto 0.03 X10*3/uL (0.00-0.03); Imm Gran Pct Auto 0.4 % (0.0-0.4); Lymphocytes Absolute Auto 0.9 X10*3/uL (1.2-4.9); Lymphocytes Percent Auto 13.2 % (20-40); Mean Corpuscular HGB Conc 34.8 g/dl (31.0-35.0); Mean Corpuscular Hemoglobin 28.2 pg (27.0-33.0); Mean Corpuscular Volume 80.8 fL (80.0-98.0); Mean Platelet Volume 10.2 fL (9.4-12.3); Monocytes Absolute Auto 0.4 X10*3/uL (0.1-1.2); Monocytes Percent Auto 4.9 % (2-11); Neutrophils Absolute Auto 5.6 x10*3/uL (2.0-8.3); Neutrophils Percent Auto 79.3 % (45-73); Platelet Count 144 X10*3/uL (160-400); Red Blood Count 4.12 X10*6/uL (4.20-5.50); White Blood Count 7.1 X10*3/uL (4.8-10.8)
[2024-12-13 13:18] LABS: Appearance Urine Cloudy; Color Urine Yellow; Glucose Urine UA Negative (Negative); Leukocyte Esterase Urine Trace (Negative); Nitrite Urine Negative (Negative); Specific Gravity - Urine 1.015 (1.005-1.025); UMIC TRIGGER UA YES; Urine Blood Negative (Negative); Urine Ketones Negative (Negative); Urine Protein 300 (3+) mg/dL (Neg-Trace)
[2024-12-13 13:24] LABS: Anion Gap 12 (12-20); Blood Urea Nitrogen 16 mg/dL (9-16); Calcium 9.3 mg/dL (8.4-10.2); Carbon Dioxide 26 mmol/L (22-29); Chloride 106 mmol/L (96-108); Estimated Glomerular Filt Rate 27; Potassium 3.7 mmol/L (3.3-5.1); Sodium 140 mmol/L (135-145)
[2024-12-13 13:29] LABS: Bacteria Urine 2+ (None Seen); Hyaline Casts Urine 0-2 /LPF (0-2); RBC Urine 0-2 /HPF (0-2); WBC Urine 21-50 /HPF (0-5)
[2024-12-13 13:47] LABS: Prothrombin Time 11.3 SEC (10.9-12.4)
[2024-12-13 14:35] LABS: Creatinine Urine 101.71 mg/dL; Protein/Creatinine Ratio, Ur 1.91 (<0.2); Total Protein Urine Random 194 mg/dL (<12)
[2024-12-14 04:16] LABS: HBc Num1 0.13 S/CO (0.00-0.79); HBsAGNum1 0.26 S/CO (0.00-0.99); Hepatitis B Core Antibody Nonreactive (Nonreactive); Hepatitis B Surface Antigen Negative (Negative)
[2024-12-16 08:09] LABS: Streptolysin O Antibody 61 IU/mL (<200)
[2024-12-16 11:39] LABS: Complement C3 134 mg/dL (83-193)
[2024-12-16 23:04] LABS: Anti DNA DS Antibody <1 IU/mL; Anti Glomerular Basement Memb <1.0 AI; Antibody to SS-A Antigen <1.0 NEG AI (<1.0 NEG); Antibody to SS-B Antigen <1.0 NEG AI (<1.0 NEG); Myeloperoxidase Antibody <1.0 AI; Proteinase 3 PR3 Antibodies <1.0 AI; SM/Ribonucleoprotein Ab <1.0 NEG AI (<1.0 NEG); Scleroderma 70 Antibody <1.0 NEG AI (<1.0 NEG); Smith Protein <1.0 NEG AI (<1.0 NEG)
[2024-12-17 13:13] LABS: IgA 120 mg/dL (47-310); IgG 1004 mg/dL (600-1640); IgM 173 mg/dL (50-300)
[2024-12-20 20:04] LABS: Phospholipase A2 IgG ELISA <4 RU/mL; Phospholipase A2 IgG IFA NEGATIVE (NEGATIVE)
== END 2024-12-13 10:34 | disposition home or self-care (01) ==
LOC: HO.10HDL 10:33
PROVIDERS: Visit Provider Internal Medicine Nephrology
DX: I12.9 Hypertensive chronic kidney disease with stage 1 through stage 4 chronic kidney disease, or unspecified chronic kidney disease (principal); N17.9 Acute kidney failure, unspecified
CPT/HCPCS: 36415; 80051; 81001; 82310; 82565; 82570; 82784; 83520; 84156; 84520; 85025; 85610; 86021; 86060; 86160; 86225; 86235; 86255; 86334; 86704; 87340

== ENCOUNTER 2024-12-26 08:42 | Outpatient (REF) | payer OTHER, SELFPAY ==
[2024-12-26 10:24] LABS: Appearance Urine Turbid; Color Urine Yellow; Glucose Urine UA Negative (Negative); Leukocyte Esterase Urine Large (3+) (Negative); Nitrite Urine Negative (Negative); Specific Gravity - Urine 1.015 (1.005-1.025); UMIC TRIGGER UA YES; Urine Blood Large (3+) (Negative); Urine Ketones Negative (Negative); Urine Protein 300 (3+) mg/dL (Neg-Trace)
[2024-12-26 10:51] LABS: Bacteria Urine 2+ (None Seen); Hyaline Casts Urine 0-2 /LPF (0-2); Squamous Epithelial Cell Urine >20 /HPF (0-2); WBC Urine >50 /HPF (0-5)
[2024-12-26 10:58] LABS: Anion Gap 11 (12-20); Blood Urea Nitrogen 31 mg/dL (9-16); Carbon Dioxide 19 mmol/L (22-29); Chloride 111 mmol/L (96-108); Estimated Glomerular Filt Rate 15; Potassium 3.3 mmol/L (3.3-5.1); Sodium 138 mmol/L (135-145)
== END 2024-12-26 08:43 | disposition home or self-care (01) ==
LOC: HO.HMGCLDS 08:42
PROVIDERS: PCP Internal Medicine; Visit Provider Internal Medicine Nephrology
DX: I10 Essential (primary) hypertension (principal); N17.9 Acute kidney failure, unspecified
CPT/HCPCS: 36415; 80051; 81001; 81003; 82565; 84520

== ENCOUNTER 2024-12-27 09:55 | Outpatient (AMB) | payer OTHER, SELFPAY ==
--- NOTE | 2024-12-27 10:19 | HO.NEPHOV_ITS ---
Vital Signs 12/27/24 10:22 Height 5 ft 3 in Weight 218 lb 8 oz BMI 38.7 BP 140/100 H Blood Pressure Location Rt brachial Position Sitting Pulse 93 Pulse Source Pulse Oximeter Pulse Oximetry (%) 98 Oxygen Delivery Method Room Air Intake Visit Reasons: 2 weeks fu-Conf Chief Solution Architect Required: No Accompanied by: Other Relationship Allergies amoxicillin [AMOXICILLIN] Allergy (Severe, Verified 12/27/24 10:22) ANAPHYLAXIS, swelling Penicillins [PENICILLINS] Allergy (Severe, Verified 12/27/24 10:22) ANAPHYLAXIS polyethylene glycol 3350 [From MIRALAX] Allergy (Severe, Verified 12/27/24 10:22) ANAPHYLAXIS sulindac [SULINDAC] Allergy (Severe, Verified 12/27/24 10:22) SWELLING senna Allergy (Intermediate, Verified 12/27/24 10:22) Unknown seafood Allergy (Verified 12/27/24 10:22) Hives HPI Comments Details: Cassidy is a 34 year old patient with hypertension . She has no history of diabetes mellitus, palpitation, orthostasis. She has high BMI and is not very strict with low-sodium diet. She has no history of glomerular diseases. Her renal function had been getting worse and now has been having some proteinuria. She denies using drugs other than Marijuana. She does not takes nonsteroidal anti-inflammatories regularly. She denies chest pain, shortness of breath, proximal nocturnal dyspnea, orthopnea, pedal edema, hematuria, or renal calculi. She has increased eye pressure in the eyes and was given Diamox which she took only for 2 days and she is currently on drops. [facility] Medical History (Updated 12/09/24 @ 13:46 by Mindy uHtchinson MD) Possible exposure to STD Breast mass, right Morbid obesity with BMI of 40.0-44.9, adult Hypertension Annual visit for general adult medical examination with abnormal findings Heart murmur, systolic Breast pain Right Achilles tendinitis Erythema intertrigo External hemorrhoids Bleeding hemorrhoids Vitamin D deficiency Heel callus Mild intermittent asthma in adult without complication Ex-cigarette smoker Motion sickness Mild intellectual disability Porcelain gallbladder Migraine Depression with anxiety Dysmenorrhea 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 Brother No problems noted. Brother No problems noted. Maternal Aunt Breast cancer Maternal Grandmother Hypertension Social History Household Members: Caregiver Housing: House Housing Other:: correction Are you a primary career technical counselor to a significant other at home: No Do you presently have visiting nurse or other home services: Yes (24 hr cargiver) Alcohol intake: never Patient Tobacco Use Status: Current everyday Tobacco user Tobacco use type: Cigarette Cigarettes Per Day: 4 Years Smoked: 19 e-Cigarette/Vaping Use: Never Used Second Hand Smoke Exposure: No Substance Use Type: Marijuana service: No 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al status: disabled 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 Cognitive needs: No Hearing needs: No Vision needs: Yes Female Reproductive History Menstrual Age of Menarche: 13 Review of Systems Const All systems reviewed & are unremarkable except as noted in HPI and below Physical Exam Vital Signs: Last Vital Signs Pulse 93 12/27/24 10:22 BP 140/100 H 12/27/24 10:22 Pulse Ox 98 12/27/24 10:22 Oxygen Delivery Method Room Air 12/27/24 10:22 BMI result Body Mass Index 38.7 Const General: comfortable and no acute distress Orientation/consciousness: patient oriented x3 HEENT Head: Yes normocephalic Mouth: Normal oral and palatal mucosa present Eyes EOM: EOMs intact bilaterally Neck Neck: Yes supple Resp Auscultation: clear to auscultation bilaterally Cardio Jugular venous distension: no JVD Rate: regular rate GI Palpation (GI): Soft to palpation Auscultation: normal bowel sounds Skin General skin exam: no rashes or lesions noted Neuro General: patient oriented x3 and moves all extremities Extrem General: Yes no pedal edema Results Reviewed Nephrology Results: Hgb 11.6 g/dl (12.0-16.0) L 12/13/24 WBC 7.1 X10*3/uL (4.8-10.8) 12/13/24 Plt Count 144 X10*3/uL (160-400) L 12/13/24 Sodium 138 mmol/L (135-145) 12/26/24 Potassium 3.3 mmol/L (3.3-5.1) 12/26/24 Chloride 111 mmol/L (96-108) H 12/26/24 Carbon Dioxide 19 mmol/L (22-29) L 12/26/24 BUN 31 mg/dL (9-16) H 12/26/24 Creatinine 3.51 mg/dL (0.5-1.4) H 12/26/24 Calcium 9.3 mg/dL (8.4-10.2) 12/13/24 Urine Protein 300 (3+) mg/dL (Neg-Trace) H 12/26/24 Urine Creatinine 101.71 mg/dL 12/13/24 Protein/Creatinin Ratio 1.91 (<0.2) H 12/13/24 Assessment & Plan Assessment & Plan (1) Proteinuria: Code(s): R80.9 - Proteinuria, unspecified Category: Medical Qualifiers: Proteinuria type: other Qualified Code(s): R80.8 - Other proteinuria (2) Hypertension: Code(s): I10 - Essential (primary) hypertension Category: Medical Qualifiers: Hypertension type: primary hypertension Qualified Code(s): I10 - Essential (primary) hypertension (3) PEYTON (acute kidney injury): Code(s): N17.9 - Acute kidney failure, unspecified Category: Medical Plan Cassidy has hypertension. She has high BMI. She is at risk for secondary FSGS. Her renal functions are getting worse ( ? tubular injury vs GN etc). She is not a diabetic. She does not monitor blood pressure at home. She is not compliant with low-sodium diet. She has symptoms suggestive of sleep apnea. Doppler of her renal arteries was negative. She was encouraged to lose weight and maintain low-sodium diet. She will benefit from sleep study. I ordered Doppler of renal arteries and a renal biopsy . I started her on Prednisone 20 mg daily for now. All these have been discussed in detail. Time spent 35 minutes. Follow up given in 2 weeks Orders: Orders Creatinine 2 Weeks I10 - Essential (primary) hypertension, R80.8 - Other proteinuria Blood Urea Nitrogen 2 Weeks I10 - Essential (primary) hypertension, R80.8 - Other proteinuria Electrolytes 2 Weeks I10 - Essential (primary) hypertension, R80.8 - Other proteinuria CT biopsy renal LT Today N17.9 - Acute kidney failure, unspecified renal doppler Today N17.9 - Acute kidney failure, unspecified Medications: New prednisone 20 mg PO DAILY 30 tabs 0RF Coding Level of Care Code Est Pt Level 5 (04894) Diagnoses Other proteinuria R80.8 Proteinuria type: other Primary hypertension I10 Hypertension type: primary hypertension PEYTON (acute kidney injury) N17.9
[2024-12-27 10:22] VITALS: BP 140/100; PULSE 93; O2SAT 98; BMI 38.7
== END 2024-12-27 10:53 | disposition home or self-care (01) ==
LOC: HO.HKA 09:56
PROVIDERS: PCP Internal Medicine; Visit Provider Internal Medicine Nephrology
DX: R80.8 Other proteinuria (principal); I10 Essential (primary) hypertension; N17.9 Acute kidney failure, unspecified
CPT/HCPCS: 99214

== ENCOUNTER → 2024-12-27 09:55 | Outpatient (BNVA) | payer OTHER, SELFPAY | PROVIDERS: PCP Internal Medicine; Visit Provider Internal Medicine Nephrology | DX: R80.8 Other proteinuria (principal); N17.9 Acute kidney failure, unspecified; I10 Essential (primary) hypertension | CPT/HCPCS: 99212 ==

== ENCOUNTER 2024-12-27 14:56 | Outpatient (REF) | payer OTHER, SELFPAY ==
--- NOTE | ~2024-12-27 | US_ITS ---
CLINICAL HISTORY: N17.9 - Acute kidney failure, unspecified Renal duplex ultrasound. COMPARISON: US renal dated 09/27/24 at 14:03 EST Technique: Real time duplex ultrasound imaging was performed by the service station console operator. Multiple junior sales representative static images were saved for review. FINDINGS: Aorta: Normal waveform, 125 cm/s. Aorta measures 0.3 cm, without aneurysmal dilatation identified. Right kidney: Normal size and echotexture, 10.2 cm length. Right renal cyst of the inferior pole measuring 1.3 x 1.1 x 1.2 cm. Right renal cyst of the upper pole measuring 1.1 x 0.7 x 0.8 cm. Main renal artery peak systolic velocities: Proximal: 125 cm/s Mid: 69 cm/s Distal: 77 cm/s Segmental resistive index: 0.69 Left kidney: Normal size and echotexture, 9.6 cm length. Left renal calculus measuring 0.3 x 0.1 cm of the inferior pole. Main renal artery peak systolic velocities: Proximal: 111 cm/s Mid: 87 cm/s Distal: 51 cm/s Segmental resistive index: 0.65 IMPRESSION: 1. Normal renal artery duplex ultrasound. 2. Normal renal artery resistive indices bilaterally. This document has been electronically signed by: Jan Bradshaw MD on 12/27/2024 17:49:37
== END 2024-12-27 14:57 | disposition home or self-care (01) ==
LOC: HO.US 14:56
PROVIDERS: PCP Internal Medicine; Visit Provider Internal Medicine Nephrology
DX: N17.9 Acute kidney failure, unspecified (principal)
CPT/HCPCS: 93975

== ENCOUNTER → 2024-12-27 14:58 | Outpatient (BNV) | payer OTHER, SELFPAY | PROVIDERS: PCP Internal Medicine; Visit Provider Radiology Diagnostic Radiology | DX: N17.9 Acute kidney failure, unspecified (principal) | CPT/HCPCS: 93975 ==

== ENCOUNTER 2024-12-31 08:50 | Outpatient (AMB) | payer OTHER, SELFPAY ==
--- OUTSIDE RECORDS SUMMARY | 2024-12-31 09:21 | XMS_ITS | Clinical Summary ---
Author Organization [employer] [facility] Address [address] [place] [address] Care Team Providers Care Assistant Toddler Teacher Name Role Phone Fernandez Tyler MD Primary Care Provider [phone] Surgical History Surgery Date Site/Laterality Comments BREAST [...] age to complete this topic Care Teams Assistant Toddler Teacher Relationship Specialty Start Date End Date Fernandez Tyler MD [address] [place] [address] Drive [address] [place] [address] PCP - General Internal Medicine 03/19/14
--- NOTE | 2024-12-31 09:23 | AM.OFFWIN_ITS ---
Intake Vital Signs 12/31/24 09:24 Weight 215 lb BP 126/90 H Blood Pressure Location Lt brachial Position Sitting Pulse 111 H Pulse Source Pulse Oximeter Temp 97.9 F Temp Source Oral Pulse Oximetry (%) 98 Oxygen Delivery Method Room Air Intake Visit Reasons: EP Vomiting for 3 days, can't keep anything down Intake Note: Patient here for vomiting, body aches and headaches that have been present for about 3 days. Patient Tobacco Use Status: Current everyday Tobacco user Allergies amoxicillin [AMOXICILLIN] Allergy (Severe, Verified 12/31/24 09:31) ANAPHYLAXIS, swelling Penicillins [PENICILLINS] Allergy (Severe, Verified 12/31/24 09:31) ANAPHYLAXIS polyethylene glycol 3350 [From MIRALAX] Allergy (Severe, Verified 12/31/24 09:31) ANAPHYLAXIS sulindac [SULINDAC] Allergy (Severe, Verified 12/31/24 09:31) SWELLING senna Allergy (Intermediate, Verified 12/31/24 09:31) Unknown seafood Allergy (Verified 12/31/24 09:31) Hives Medication List - Last Reconciled 12/31/24 by Carole Hou, [facility]- albuterol sulfate 90 mcg/actuation 2 puffs inhalation Q6H PRN albuterol sulfate 2.5 mg (3 mL) inhalation Q6H PRN clonidine HCl 0.1 mg PO QAM docusate sodium (Colace) 200 mg PO BEDTIME dorzolamide-timolol (PF) 2-0.5 % 1 drp ophthalmic (eye) BID famotidine 40 mg PO DAILY hydrocortisone 1% (Preparation H Hydrocortisone) 1 appl topical TID PRN latanoprost 0.005% 1 drp ophthalmic (eye) QPM loratadine 10 mg PO DAILY PRN melatonin 5 mg PO BEDTIME multivitamin 1 tab PO DAILY oxcarbazepine (Trileptal) 600 mg PO BID polyvinyl alcohol 1.4% (Artificial Tears (polyvinyl alcohol)) 1 drp ophthalmic (eye) BEDTIME PRN prednisone 20 mg PO DAILY spironolactone 25 mg PO DAILY sumatriptan succinate 50 mg PO DAILY PRN trazodone 300 mg PO BEDTIME verapamil 40 mg PO BID verapamil ER 240 mg PO DAILY 90 days Do you need a note to return to daycare/school/sports/work: No HPI HPI Comments 2 History of Present Illness Details History Here today w/ animal care taker: - The patient is a 34-year-old female pr esenting with vomiting, headaches, and body aches for three days. - She is unable to eat or drink due to n ausea and vomiting, which occurs shortly after consuming any food or fluids. - She denies having a fever but reports sweating and generalized body aches, including rib pain. - The patient recently started prednison e treatment for a chronic kidney issue, beginning a few days ago, linked to kidney function decline noted a month ago. Denies any worsening of sx after starting; taking w/ food. Denies bloody emesis. - There are occasional reports of diarrh ea; no difficulty with urination. - LMP 1 month ago, due for period. Repor ts chance of preg. Test to be done today - Attempts to alleviate her current symp toms, such as using laurent, have been unsuccessful. Physical Exam General: Awake, alert. No apparent distress Throat: Moist mucosa membrane, pharynx within normal limits Cardiovascular: Regular rate and rhythm Respiratory: Clear to auscultation bilaterally Abd: soft nontender normoactive bs x 4, dry heaves w/o vomiting Results Preg test negative Discussion Notes I discussed with the patient her symptoms of vomiting, headaches, and body aches, and acknowledged her distress and inability to maintain hydration or nutrition. As she is undergoing treatment for chronic kidney issues, I emphasized the importance of adjusting medication dosages for her kidney function. I recommended conducting a test due to a possible delay in her menstrual cycle. As a potential source of her nausea and vomiting, managing her intake becomes critical; hence, I suggested small, frequent sips of broth, Gatorade, or electrolyte-rich fluids over plain water. In our discussion, I assured her the antiemetic medication should help alleviate her symptoms enough for her to maintain hydration, and I planned to follow up on the medication dosing for her kidney function. she was given 1 dose of ondansteron 4mg with + effects. Patient Instructions - Take anti-nausea medication as prescri bed. - Maintain hydration by consuming broth, Gatorade, or electrolyte-rich fluids instead of just water. -Preg test negative today - Start tamiflu 30mg po 3x week x 3 days - renally dosed. - Monitor symptoms and seek care if they worsen or do not improve. - Paperwork completed for her - RTO if no improvement, out of work not e for today. Consent Patient was informed and verbally consented to the use of an ambient scribe for clinic note documentation during this visit. Total time spent caring for the patient today was 40 minutes. This includes time spent before the visit reviewing the chart, time spent during the visit, and time spent after the visit on documentation, reviewing laboratory results, diagnostic imaging, medications, performing a medically necessary evaluation, counseling on diagnoses, care coordination, ordering appropriate tests, ordering appropriate medications, review of tests performed by other providers, reporting test results with the patient, communication with other healthcare providers. [facility] Medical History (Updated 12/31/24 @ 10:06 by Carole Hou, [facility]) Annual visit for general adult medical examination with abnormal findings Benign tumor of breast Bleeding hemorrhoids Breast mass, right Breast pain Depression with anxiety Dysmenorrhea Erythema intertrigo Ex-cigarette smoker External hemorrhoids Heart murmur, systolic Heel callus Hypertension Migraine Mild intellectual disability Mild intermittent asthma in adult without complication Morbid obesity with BMI of 40.0-44.9, adult Motion sickness Porcelain gallbladder Possible exposure to STD Prosthetic eye globe Right Achilles tendinitis Vitamin D deficiency Surgical History S/P laparoscopic cholecystectomy History of cholecystectomy History of benign neoplasm of breast History of eye surgery Family History Mother Hypertension Father No problems noted. Brother No problems noted. Brother No problems noted. Maternal Aunt Breast cancer Maternal Grandmother Hypertension Social History Household Members: Caregiver Housing: House Housing Other:: detention Are you a primary director of patient care to a significant other at home: No Do you presently have visiting nurse or other home services: Yes (24 hr cargiver) Alcohol intake: never Patient Tobacco Use Status: Current everyday Tobacco user Tobacco use type: Cigarette Cigarettes Per Day: 4 Years Smoked: 19 e-Cigarette/Vaping Use: Never Used Second Hand Smoke Exposure: No Substance Use Type: Marijuana service: No 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al status: disabled 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 Cognitive needs: No Hearing needs: No Vision needs: Yes Female Reproductive History Menstrual Age of Menarche: 13 Physical Exam Vital Signs: Last Vital Signs Temp 97.9 F 12/31/24 09:24 Pulse 111 H 12/31/24 09:24 BP 126/90 H 12/31/24 09:24 Pulse Ox 98 12/31/24 09:24 Oxygen Delivery Method Room Air 12/31/24 09:24 Office Meds ondansetron 4 mg disintegrating tablet Performing Provider: JAMES Howe Performing Location: [facility] Administered by: JAMES Howe on 12/31/24 09:43 Dose Route Admin Location Dispensed Lot Number Expiration Date [facility] Contract Recruiter 4 mg translingual office 4 mg 01/01/28 62492-229-30 [facility] [employer] [facility] Results AMB Test Urine AMB Test Urine Negative Last Edit by LINCOLN Palmer on 12/31/24 09:52 Assessment & Plan Assessment & Plan (1) Flu-like symptoms: Code(s): R68.89 - Other general symptoms and signs (2) Nausea & vomiting: Code(s): R11.2 - Nausea with vomiting, unspecified Qualifiers: Vomiting type: unspecified Qualified Code(s): R11.2 - Nausea with vomiting, unspecified (3) test negative: Code(s): Z32.02 - Encounter for test, result negative (4) CKD (chronic kidney disease) stage 4, GFR 15-29 ml/min: Code(s): N18.4 - Chronic kidney disease, stage 4 (severe) Plan: . Plan . Orders: Orders AMB Ondansetron Adult Dose Today R11.2 - Nausea with vomiting, unspecified AMB HCG Urine Test Today Z32.02 - Encounter for test, result negative Medications: New oseltamivir (Tamiflu) administer after dialysis on dialysis days 30 mg PO 3XW 5 days 3 caps 0RF ondansetron 4 mg PO Q8H 5 days PRN 15 tabs 0RF nausea and vomiting Coding Level of Care Code Est Pt Level 5 (33339) Diagnoses Flu-like symptoms R68.89 Nausea and vomiting, unspecified vomiting type R11.2 Vomiting type: unspecified test negative Z32.02 CKD (chronic kidney disease) stage 4, GFR 15-29 ml/min N18.4
[2024-12-31 09:24] VITALS: BP 126/90; PULSE 111; TEMP 36.6; O2SAT 98
== END 2024-12-31 10:04 | disposition home or self-care (01) ==
PROVIDERS: PCP Internal Medicine; Visit Provider Nurse Practitioner Family
DX: R68.89 Other general symptoms and signs (principal); R11.2 Nausea with vomiting, unspecified; Z32.02 Encounter for pregnancy test, result negative; N18.4 Chronic kidney disease, stage 4 (severe)

== ENCOUNTER → 2024-12-31 08:50 | Outpatient (BNVA) | payer OTHER, SELFPAY | PROVIDERS: PCP Internal Medicine; Visit Provider Nurse Practitioner Family | DX: R68.89 Other general symptoms and signs (principal); R11.2 Nausea with vomiting, unspecified; N18.4 Chronic kidney disease, stage 4 (severe); Z32.02 Encounter for pregnancy test, result negative | CPT/HCPCS: 81025; 99212 ==

== ENCOUNTER 2024-12-31 19:28 | Inpatient (IN) | payer OTHER, SELFPAY ==
[2024-12-31] VITALS (8 sets, daily range): BP systolic 212–246; BP diastolic 128–152; PULSE 85–114; RESP 11–18; TEMP 36.6–36.7; O2SAT 99–100; BMI 38.1
--- NOTE | ~2024-12-31 | CT_ITS ---
CLINICAL HISTORY: Abdominal pain vomiting leukocytosis [place] CT abdomen and pelvis without contrast Comparison: CT/REG/SR - CT ABDOMEN PELVIS W IV CON - 11/14/23 08:33 EST Findings: No consolidation or effusion. Gallbladder is surgically absent. No focal hepatic lesion identified. Pancreas, spleen and adrenal glands are within normal limits. Kidneys are grossly non hydronephrotic. Punctate calcifications are noted in the left kidney. No bowel obstruction, pneumoperitoneum, or pneumatosis. Visualized appendix is normal. Left ovarian cyst measures 4 x 2.8 cm. The bones are intact. IMPRESSION: No acute findings. This document has been electronically signed by: José Miguel De Anda MD, PHD on 01/01/2025 02:55:29
--- NOTE | 2024-12-31 19:33 | ED_ITS ---
HPI - Nausea/Vomiting/Diarrhea General Chief complaint: Nausea/Vomiting/Diarrhea Stated complaint: vomiting since Monday/kidney issues Time Seen by Provider: 12/31/24 21:59 Source: patient Mode of arrival: ambulatory Limitations: no limitations History of Present Illness ED Provider: HPI Narrative: Patient's history of CKD and hypertension been having nausea vomiting for last 3 days unable to hold down anything no significant abdominal pain no diarrhea no fever no chills on arrival patient's blood pressure was 246/152. Related Data Home Medications ?Medication ?Instructions ?Recorded ?Confirmed polyvinyl alcohol 1.4 % eye drops 1 drp ophthalmic (eye) BEDTIME PRN 07/06/21 12/31/24 (Artificial Tears (polyvinyl Dry Eyes alcohol)) melatonin 5 mg tablet 5 mg PO BEDTIME 07/26/21 12/31/24 trazodone 150 mg tablet 300 mg PO BEDTIME Insomnia 11/22/24 12/31/24 docusate sodium 100 mg capsule 200 mg PO BEDTIME 11/30/24 12/31/24 (Colace) clonidine HCl 0.1 mg tablet 0.1 mg PO QAM 12/27/24 12/31/24 dorzolamide-timolol (PF) 2 %-0.5 % 1 drp ophthalmic (eye) BID 12/27/24 12/31/24 eye drops in a dropperette latanoprost 0.005 % eye drops 1 drp ophthalmic (eye) QPM 12/27/24 12/31/24 verapamil 40 mg tablet 40 mg PO BID 12/27/24 12/31/24 Previous Rx's ?Medication ?Instructions ?Recorded oxcarbazepine 600 mg tablet 600 mg PO BID #60 tabs 05/30/22 (Trileptal) verapamil 240 mg tablet,extended 240 mg PO DAILY 90 days #90 tabs 10/11/24 release multivitamin 1 tab PO DAILY #90 tabs 10/24/24 famotidine 40 mg tablet 40 mg PO DAILY heartburn #90 tabs 10/25/24 spironolactone 25 mg tablet 25 mg PO DAILY #30 tabs 11/22/24 albuterol sulfate 2.5 mg/3 mL 2.5 mg (3 mL) inhalation Q6H PRN 12/11/24 (0.083 %) solution for nebulization shortness of breath or wheezing #75 mL albuterol sulfate 90 mcg/actuation 2 puff inhalation Q6H PRN 12/11/24 aerosol inhaler bronchospasm #8.5 grams loratadine 10 mg tablet 10 mg PO DAILY PRN allergy 12/16/24 symptoms #30 tabs sumatriptan succinate 50 mg tablet 50 mg PO DAILY PRN Headache #10 12/16/24 tabs hydrocortisone 1 % topical cream 1 appl topical TID PRN skin 12/27/24 (Preparation H Hydrocortisone) irritation/ painful hemorrhoid #28.4 grams prednisone 20 mg tablet 20 mg PO DAILY #30 tabs 12/27/24 ondansetron 4 mg disintegrating 4 mg PO Q8H PRN nausea and 12/31/24 tablet vomiting 5 days #15 tabs oseltamivir 30 mg capsule (Tamiflu) 30 mg PO 3XW 5 days #3 caps 12/31/24 Allergies Allergy/AdvReac Type Severity Reaction Status Date / Time amoxicillin [AMOXICILLIN] Allergy Severe ANAPHYLAXIS, Verified 12/31/24 19:42 swelling Penicillins [PENICILLINS] Allergy Severe ANAPHYLAXIS Verified 12/31/24 19:42 polyethylene glycol 3350 Allergy Severe ANAPHYLAXIS Verified 12/31/24 19:42 [From MIRALAX] sulindac [SULINDAC] Allergy Severe SWELLING Verified 12/31/24 19:42 senna Allergy Intermediate Unknown Verified 12/31/24 19:42 seafood Allergy Hives Verified 12/31/24 19:42 Review of Systems 2 Review of Systems: Yes all other systems are reviewed and are negative PMFSH Past Medical History Medical History Possible exposure to STD Breast mass, right Morbid obesity with BMI of 40.0-44.9, adult Hypertension Annual visit for general adult medical examination with abnormal findings Heart murmur, systolic Breast pain Right Achilles tendinitis Erythema intertrigo External hemorrhoids Bleeding hemorrhoids Vitamin D deficiency Heel callus Mild intermittent asthma in adult without complication Ex-cigarette smoker Motion sickness Mild intellectual disability Porcelain gallbladder Migraine Depression with anxiety Dysmenorrhea 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 Brother No problems noted. Brother No problems noted. Maternal Aunt Breast cancer Maternal Grandmother Hypertension Social History Social History Household Members: Caregiver Housing: House Housing Other:: assisted Are you a primary campground caretaker to a significant other at home: No Do you presently have visiting nurse or other home services: Yes (24 hr cargiver) Alcohol intake: never Patient Tobacco Use Status: Never used Tobacco Tobacco use type: Cigarette Cigarettes Per Day: 4 Years Smoked: 19 Smoked in Last 30 Days: No e-Cigarette/Vaping Use: Never Used Second Hand Smoke Exposure: No Use of substances other than those prescribed or required for medical reasons: No Substance Use Type: Marijuana Advance Directives: No Advance Directives Information Provided: No Do you have a plan to hurt others: No Plan Nutrition Risks: No Nutritional Risk Patient : No service: No 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al status: disabled 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 Oriented X3. No acute distress. Eyes: No Nystagmus prosthetic left eye ENT: Pharynx normal. Oral Mucosa moist Neck: Normal inspection. Neck supple. CVS: Normal heart rate and rhythm. Pulses normal. Respiratory: No respiratory distress. Equal air entry bilateral, no wheezing/rales/rhonchi Abdomen: Soft and nontender. Bowel sounds are present, no mass palpable, no CVA tenderness Skin: Skin warm and dry. Normal skin color. Normal skin turgor. Extremities: No lower extremity edema. No calf tenderness Neuro: Oriented X 3. No motor deficit. No sensory deficit.No cerebellar signs , cranial nerves II-XII intact Course Course Course Narrative: This is an RME: Additional HPI, ROS, PE not included below will be deferred to primary provider. RME assessment and note performed by: Carrol Gan PA-C This is a 25-idpx-dkm-female, with a hx of past medical history of kidney disease, hypertension, GERD, depression, anxiety, and intellectual disability, who presents to the ER with a complaint of nausea, vomiting and diarrhea. Unable to tolerate PO, has not been able to keep any medications down. Had cholecystectomy removed several years ago. Blood pressure elevated at 246/152. Has been unable to get any blood pressure medications down as she has been only vomiting. Patient with diffuse abdominal pain. Patient also has had worsening kidney function, currently being followed by Dr. Caceres. Given blood pressure being profoundly elevated, advised charge nurse to bring patient back emily. Plan: Labs, UA, further ER evaluation needed. Medications Administered Discontinued Medications Generic Name Dose Route Start Last Admin Trade Name Freq PRN Reason Stop Dose Admin Clonidine HCl 0.1 mg 01/01/25 00:56 01/01/25 01:29 Clonidine Hcl 0.1 Mg Tablet PO 01/01/25 00:57 0.1 mg ONCE ONE Administration Protocol Sodium Chloride 1,000 mls @ 999 mls/hr 12/31/24 22:12 12/31/24 23:30 Ns IV 12/31/24 23:12 Infused .Q1H1M ONE Infusion Sodium Chloride 1,000 mls @ 999 mls/hr 01/01/25 00:52 01/01/25 02:39 Ns IV 01/01/25 01:52 Infused .Q1H1M ONE Infusion Labetalol HCl 20 mg 12/31/24 22:12 12/31/24 22:30 Labetalol Hcl 100 Mg/20 Ml Vial IVPUSH 12/31/24 22:13 20 mg ONCE ONE Administration Labetalol HCl 20 mg 01/01/25 00:14 01/01/25 00:19 Labetalol Hcl 100 Mg/20 Ml Vial IVPUSH 01/01/25 00:15 20 mg ONCE ONE Administration Nitroglycerin 1 inch 01/01/25 03:37 01/01/25 03:49 Nitroglycerin 2 % Oint 1 Gm Packet TRANSDERMA 01/01/25 03:38 1 inch ONCE ONE Administration Ondansetron HCl 4 mg 12/31/24 22:25 12/31/24 22:30 Ondansetron Hcl 4 Mg/2 Ml Vial IVPUSH 12/31/24 22:26 4 mg ONCE ONE Administration Potassium Chloride 40 meq 01/01/25 02:53 01/01/25 03:49 Potassium Chloride Packet 20 Meq Packet PO 01/01/25 02:54 40 meq ONCE ONE Administration Medical Decision Making Medical Decision Making [facility] Narrative: Patient's history of hypertension with CKD vomiting for last 3 days lab workup showed elevated creatinine from baseline of 3.5 today's 6.9 patient has received IV fluids also noted to have hypertensive crisis with blood pressure 246/152 patient is on clonidine which she not able to hold it down patient has received 2 doses of labetalol blood pressure improved to 198/127 received IV fluids will recheck chemistry do a CT scan of the abdomen to rule out any acute pathology and plan for admission Patient has received IV fluids making urine labs showed slight improvement in the creatinine blood pressure improved 154/98 after multiple doses of IV medication will admit patient Differential Diagnosis Differential Diagnoses: The differential diagnosis associated with the presentation includes Hypertensive crisis/[place]/metabolic did not Admission/Observation Consideration of admission/observation: Escalation of care including admission/observation considered Consult Healthcare Provider Management of the patient was discussed with: Hospitalist Lab Data [facility] Lab Attestation statement: I reviewed the patient's lab results. 12/31/24 22:29 01/01/25 03:39 Labs: Lab Results 12/31/24 12/31/24 12/31/24 Range/Units 20:12 20:55 22:29 WBC 17.3 H (4.8-10.8) X10*3/uL RBC 4.49 (4.20-5.50) X10*6/uL Hgb 12.9 (12.0-16.0) g/dl Hct 34.1 L (37.0-47.0) % MCV 75.9 L (80.0-98.0) fL MCH 28.7 (27.0-33.0) pg MCHC 37.8 H (31.0-35.0) g/dl RDW 13.9 (11.0-16.0) % Plt Count 62 L D (160-400) X10*3/uL MPV Not Reportable Immature Gran % (Auto) 1.0 H (0.0-0.4) % Neut % (Auto) 85.5 H (45-73) % Lymph % (Auto) 6.7 L (20-40) % [place] % (Auto) 6.2 (2-11) % Eos % (Auto) 0.1 (0-4) % Baso % (Auto) 0.5 (0-2) % Lymph # (Auto) 1.2 (1.2-4.9) X10*3/uL [place] # (Auto) 1.1 (0.1-1.2) X10*3/uL Eos # (Auto) 0.0 (0.0-0.4) X10*3/uL Baso # (Auto) 0.1 (0.0-0.2) X10*3/uL Abs Immat Gran (auto) 0.17 H (0.00-0.03) X10*3/uL Absolute Neuts (auto) 14.8 H (2.0-8.3) x10*3/uL Absolute Nucleated RBC 0.020 H (0.0-0.012) X10*3/uL Nucleated RBC % (auto) 0.1 (0.0-0.2) /100WBC Smear Tech's Comments VERIFIED VBG pH (7.32-7.43) VBG pCO2 mmHg VBG pO2 mmHg VBG HCO3 (22-26) mmol/L VBG O2 Saturation % VBG Base Excess mmol/L Sodium 134 L (135-145) mmol/L Potassium 3.0 L (3.3-5.1) mmol/L Chloride 102 (96-108) mmol/L Carbon Dioxide 15 L (22-29) mmol/L Anion Gap 20 (12-20) BUN 73 H (9-16) mg/dL Creatinine 6.90 H* (0.5-1.4) mg/dL Estim Creat Clear Calc 13.0 Estimated GFR 7 Random Glucose 119 H (60-115) mg/dL Calcium 9.3 (8.4-10.2) mg/dL Magnesium 2.4 (1.6-2.6) mg/dL Total Bilirubin 1.1 H (0.0-1.0) mg/dL Direct Bilirubin 0.3 (0.0-0.5) mg/dL AST 41 H (5-31) U/L ALT 16 (0-31) U/L Alkaline Phosphatase 115 (39-117) U/L Troponin I High Sens 520.5 H* D (<3.5-17.0) ng/L Total Protein 7.7 (6.5-8.0) g/dL Albumin 4.5 (3.5-5.0) g/dL Lipase 230 H (8-78) U/L Beta HCG, Quant < 2 mIU/mL Urine Color Yellow Urine Appearance Cloudy Urine pH 7.5 (5.0-9.0) Ur Specific [place] 1.015 (1.005-1.025) Urine Protein >=1000 (4+) H (Neg-Trace) mg/dL Urine Glucose (UA) Negative (Negative) mg/dL Urine Ketones Negative (Negative) mg/dL Urine Blood Large (3+) H (Negative) Urine Nitrite Negative (Negative) Ur Leukocyte Esterase Trace H (Negative) Urine RBC 3-5 H (0-2) /HPF Urine WBC 0-5 (0-5) /HPF Ur Squamous Epith Cells 3-5 (0-2) /HPF Urine Bacteria 3+ (None Seen) Hyaline Casts 3-5 (0-2) /LPF Influenza Type A (PCR) NEGATIVE (Negative) Influenza Type B (PCR) NEGATIVE (Negative) RSV RNA Qual (PCR) NEGATIVE (Negative) SARS-CoV-2 RNA (RT-PCR) NEGATIVE (Negative) 01/01/25 01/01/25 Range/Units 03:39 03:44 WBC (4.8-10.8) X10*3/uL RBC (4.20-5.50) X10*6/uL Hgb (12.0-16.0) g/dl Hct (37.0-47.0) % MCV (80.0-98.0) fL MCH (27.0-33.0) pg MCHC (31.0-35.0) g/dl RDW (11.0-16.0) % Plt Count (160-400) X10*3/uL MPV Immature Gran % (Auto) (0.0-0.4) % Neut % (Auto) (45-73) % Lymph % (Auto) (20-40) % [place] % (Auto) (2-11) % Eos % (Auto) (0-4) % Baso % (Auto) (0-2) % Lymph # (Auto) (1.2-4.9) X10*3/uL [place] # (Auto) (0.1-1.2) X10*3/uL Eos # (Auto) (0.0-0.4) X10*3/uL Baso # (Auto) (0.0-0.2) X10*3/uL Abs Immat Gran (auto) (0.00-0.03) X10*3/uL Absolute Neuts (auto) (2.0-8.3) x10*3/uL Absolute Nucleated RBC (0.0-0.012) X10*3/uL Nucleated RBC % (auto) (0.0-0.2) /100WBC Smear Tech's Comments VBG pH 7.45 H (7.32-7.43) VBG pCO2 17 mmHg VBG pO2 216 mmHg VBG HCO3 12 L (22-26) mmol/L VBG O2 Saturation 99.0 % VBG Base Excess -9.4 mmol/L Sodium 135 (135-145) mmol/L Potassium 3.0 L (3.3-5.1) mmol/L Chloride 109 H (96-108) mmol/L Carbon Dioxide 11 L (22-29) mmol/L Anion Gap 18 (12-20) BUN 67 H (9-16) mg/dL Creatinine 6.55 H* (0.5-1.4) mg/dL Estim Creat Clear Calc 13.7 Estimated GFR 7 Random Glucose 109 (60-115) mg/dL Calcium 8.0 L D (8.4-10.2) mg/dL Magnesium (1.6-2.6) mg/dL Total Bilirubin (0.0-1.0) mg/dL Direct Bilirubin (0.0-0.5) mg/dL AST (5-31) U/L ALT (0-31) U/L Alkaline Phosphatase (39-117) U/L Troponin I High Sens 631.9 H* (<3.5-17.0) ng/L Total Protein (6.5-8.0) g/dL Albumin (3.5-5.0) g/dL Lipase (8-78) U/L Beta HCG, Quant mIU/mL Urine Color Urine Appearance Urine pH (5.0-9.0) Ur Specific [place] (1.005-1.025) Urine Protein (Neg-Trace) mg/dL Urine Glucose (UA) (Negative) mg/dL Urine Ketones (Negative) mg/dL Urine Blood (Negative) Urine Nitrite (Negative) Ur Leukocyte Esterase (Negative) Urine RBC (0-2) /HPF Urine WBC (0-5) /HPF Ur Squamous Epith Cells (0-2) /HPF Urine Bacteria (None Seen) Hyaline Casts (0-2) /LPF Influenza Type A (PCR) (Negative) Influenza Type B (PCR) (Negative) RSV RNA Qual (PCR) (Negative) SARS-CoV-2 RNA (RT-PCR) (Negative) Independent Interpretation I performed an independent interpretation of an: EKG Interpretation: Sinus tachycardia with heart rate of 106 beats per minute normal intervals normal axis no acute ST-T changes no acute ischemia Radiology Impression Discussion of test interpretation with radiology: I have reviewed the radiologist's reading. Radiologist Impression: No acute findings External Record Review External record reviewed: Inpatient record, Outpatient record and Prior outpatient radiology Critical Care Time Critical Care Time Critical Care Time: Yes Total Critical Care Time: 70 Attestation: The patient was critically ill with a high probability of imminent or life threatening deterioration. I spent greater than 75??minutes of discontinuous time evaluating the patient,delivering critical care at the bedside, discussing and evaluating pertinent data with consultants. Critical care time does not include time spent performing separately billable procedures or teaching. Total time spent performing critical care was 70???minutes. Discharge Plan Discharge Clinical Impression: Hypertensive urgency, Acute renal failure Patient Disposition: Admitted As Inpatient
--- NOTE | 2024-12-31 19:36 | ECG_ITS ---
Test Reason : tachy Blood Pressure : */* mmHG Vent. Rate : 106 BPM Atrial Rate : 106 BPM P-R Int : 160 ms QRS Dur : 82 ms QT Int : 346 ms P-R-T Axes : 42 59 14 degrees QTcB Int : 459 ms Sinus tachycardia Biatrial enlargement Abnormal ECG When compared with ECG of 29-Nov-2024 23:10, No significant change was found Referred By: Carrol Swan Electronically Signed By: STEPHANIE GALLOWAY
--- NOTE | 2024-12-31 20:00 | PC.NURSE ---
Multiple failed attempts at obtaining IV access by three different nurses. made aware and will attempt an U/S guided access.
--- OUTSIDE RECORDS SUMMARY | 2024-12-31 20:29 | XMS_ITS | Clinical Summary ---
Author Organization [employer] it Address [address] [place] [address] Care Team Providers Care Front Desk Supervisor Name Role Phone Fernandez Tyler MD Primary Care Provider [phone] Surgical History Surgery Date Site/Laterality Comments BREAST [...] age to complete this topic Care Teams Front Desk Supervisor Relationship Specialty Start Date End Date Fernandez Tyler MD [address] [place] [address] Drive [address] [place] [address] PCP - General Internal Medicine 03/19/14
--- OUTSIDE RECORDS SUMMARY | 2024-12-31 20:29 | XMS_ITS | Data Portability ---
Author Organization EDIE zelaya [facility] Address [address] [place] [address] Care Team Providers Care Keno Manager Name Role Phone DANTE MARTINES Primary Care Provider Assessment No assessment recorded. Plan of Treatment Reminders Order Date Submit Date Provider Last Modified By Organization Details Last Modified Time Details Appointments None recorded. Lab urinalysis , dipstick 2022 023 [email or web address], [address] [place] [address], [address], 3 19:07:26 test, urine 2022 023 [email or web address] [facility], [address] [place] [address], [address], 3 19:07:26 culture, urine 2022 023 [email or web address] [facility], [address] [place] [address], [place], [address], 3 19:39:46 urinalysis , dipstick 2022 023 [facility], [address] [place] [address], [address], 3 20:12:31 test, urine 2022 023 [facility], [address] [place] [address], [address], 3 20:12:31 culture, urine 2022 023 [email or web address] ([facility], [address] [place] [address], [place], [address], 3 15:51:57 rapid strep group A, throat 2021 022 5 _[facility], [address] [place] [address], [address], 2 18:30:46 rapid flu (A+B) 2021 022 [email or web address] 5 _[facility], [address] [place] [address], [place], [address], 2 18:30:46 rapid SARS CoV 2 Ag, QL IA, respirator y specimen 2021 022 [email or web address] 5 _[facility], [address] [place] [address], [place], [address], 2 18:30:46 Referral None recorded. Procedures None recorded. Surgeries None recorded. Imaging None recorded. Medication Orders Macrobid 100 mg capsule 2022 023 [facility]/Pharmacy #[id number], [address], [place], [address], 3 19:07:28 nitrofuran toin monohydrat e/macrocry stals 100 mg capsule 2022 023 kevin [facility]acy #[id number], [address], [place], [address], 3 18:28:08 acetaminop hen 325 mg tablet 2021 022 [facility]/Pharmacy #[id number], [address], [place], [address], 2 18:43:07 Patient TargetsNo targets recorded. Patient Instructions Encounter Date Encounter Id Patient Instructions Last Modified By Organization Details Last Modified Time 09/20/2022 [id number] sore throat: rody pate instructions [email or web address] Not available 09/20/2022 18:30:46 Go to the [facility] emergency department if you develop ANY [...] without a prescription. Drink plenty of water. [email or web address] Not available 09/20/2022 18:25:38 11/02/2022 [id number] urinary tract infection in women information [email or web address] Not available 11/02/2022 20:12:31 You are going [...] antibiotic was prescribed. Thank you for using [facility] - please don't hesistate to call our office if you have any questions or concerns. [email or web address] Not available 11/02/2022 20:12:18 11/17/2022 [id number] We recommend you get a repeat urinalysis [...] men Unknown Analyte negati ve Not Available [address], [address], 09/20/2022 17:57:52 09/20/20 22 09/20/2022 rapid strep group A, throa t Unknown Analyte negati ve Not Available [address] [place] [address], [address], 09/20/2022 17:52:10 09/20/20 22 09/20/2022 rapid flu (A+B) Unknown Analyte positi ve Not Available [address] [place] [address], [address], 09/20/2022 17:57:47 09/20/20 22 09/20/2022 rapid flu (A+B) Unknown Analyte negati ve Not Available [address] [place] [address], [address], 09/20/2022 17:57:47 11/02/19 23 11/02/2022 pregn angela test, urine Unknown Analyte Normal = Negati ve Not Available 2099leena lee [address], [place], [address], 11/02/2022 20:03:07 11/02/19 23 11/02/2022 pregn angela test, urine Unknown Analyte negati ve Not Available 2099leena lee [address], [place], [address], 11/02/2022 20:03:07 11/02/19 23 11/02/2022 urina lysis , dipst ick Unknown Analyte Normal = light yellow Not Available 2099leena lee [address], [place], [address], 11/02/2022 19:48:57 11/02/1911/02/2022 urina lysis , dipst ick Unknown Analyte Light Yellow Not Available 2099leena lee [address], [place], [address], 11/02/2022 19:48:57 11/02/19 23 11/02/2022 urina lysis , dipst ick Unknown Analyte Normal = clear Not Available leena lee [address], [place], [place], [address], 11/02/2022 19:48:57 11/02/19 23 11/02/2022 urina lysis , dipst ick Unknown Analyte Clear Not Available [address], [place], [place], [address], 11/02/2022 19:48:57 11/02/19 23 11/02/2022 urina lysis , dipst ick Unknown Analyte Normal = negati ve Not Available leena lee [address], [place], [place], [address], 11/02/2022 19:48:57 11/02/19 23 11/02/2022 urina lysis , dipst ick Unknown Analyte Negati ve Not Available 2099leena lee [address], [place], [address], 11/02/2022 19:48:57 11/02/19 23 11/02/2022 urina lysis , dipst ick Unknown Analyte Normal = Negati ve Not Available 2099leena [address], [place], [address], 11/02/2022 19:48:57 11/02/1911/02/2022 urina lysis , dipst ick Unknown Analyte Negati ve Not Available [facility] [address], [place], [address], 11/02/2022 19:48:57 11/02/19 23 11/02/2022 urina lysis , dipst ick Unknown Analyte Normal = Negati ve Not Available leena [address], [place], [address], 11/02/2022 19:48:57 11/02/1911/02/2022 urina lysis , dipst ick Unknown Analyte Negati ve Not Available leena [address], [place], [address], 11/02/2022 19:48:57 11/02/19 23 11/02/2022 urina lysis , dipst ick Unknown Analyte Normal = 1.010, 1.015, 1.020 Not Available [facility] [address], [place], [address], 11/02/2022 19:48:57 11/02/19 23 11/02/2022 urina lysis , dipst ick Unknown Analyte 1.020 Not Available [address] [place] [address] Drive, [place], [address], 11/02/2022 19:48:57 11/02/1911/02/2022 urina lysis , dipst ick Unknown Analyte Normal = Negati ve Not Available leena lee emem[address], [place], [address], 11/02/2022 19:48:57 11/02/19 23 11/02/2022 urina lysis , dipst ick Unknown Analyte Negati ve Not Available leena pe emem[address], [place], [address], 11/02/2022 19:48:57 11/02/1911/02/2022 urina lysis , dipst ick Unknown Analyte Normal = 6.5, 7.0, 7.5, 8.0 Not Available leena lee emem[address], [place], [address], 11/02/2022 19:48:57 11/02/19 23 11/02/2022 urina lysis , dipst ick Unknown Analyte 6.5 Not Available thelma [address], [place], [address], 11/02/2022 19:48:57 11/02/1911/02/2022 urina lysis , dipst ick Unknown Analyte Normal = Negati ve Not Available [facility]ena pe [facility], [place], [address], 11/02/2022 19:48:57 11/02/1911/02/2022 urina lysis , dipst ick Unknown Analyte Negati ve Not Available leena pe emem[address], [place], [address], 11/02/2022 19:48:57 02/10/21 2211/02/2022 urina lysis , dipst ick Unknown Analyte Normal = 0.2, 1.0 Not Available leena lee [address], [place], [address], 11/02/2022 19:48:57 11/02/19 23 11/02/2022 urina lysis , dipst ick Unknown Analyte 0.2 E.U./d L Not Available [facility]99[facility] [address], [place], [address], 11/02/2022 19:48:57 11/02/1911/02/2022 urina lysis , dipst ick Unknown Analyte Normal = Negati ve Not Available [facility] [address], [place], [place], [address], 11/02/2022 19:48:57 11/02/1911/02/2022 urina lysis , dipst ick Unknown Analyte Negati ve Not Available leena [address], [place], [address], 11/02/2022 19:48:57 11/02/1911/02/2022 urina lysis , dipst ick Unknown Analyte Normal = Negati ve Not Available [facility] [address], [place], [address], 11/02/2022 19:48:57 11/02/1911/02/2022 urina lysis , dipst ick Unknown Analyte Negati ve Not Available [address], [place], [address], 11/02/2022 19:48:57 11/17/19 23 11/17/2022 pregn angela test, urine Unknown Analyte Normal = Negati ve Not Available [address], [place], [address], 11/17/2022 18:41:03 11/17/19 23 11/17/2022 pregn angela test, urine Unknown Analyte negati ve Not Available [facility] [address], [place], [address], 11/17/2022 18:41:03 11/17/19 23 11/17/2022 urina lysis , dipst ick Unknown Analyte Normal = light yellow Not Available [address] [place] [address], [place], [address], 11/17/2022 18:40:51 11/17/19 23 11/17/2022 urina lysis , dipst ick Unknown Analyte Normal = clear Not Available [address], [place], [address], 11/17/2022 18:40:51 11/17/19 23 11/17/2022 urina lysis , dipst ick Unknown Analyte Normal = negati ve Not Available [address], [place], [address], 11/17/2022 18:40:51 11/17/19 23 11/17/2022 urina lysis , dipst ick Unknown Analyte Normal = Negati ve Not Available [address], [place], [address], 11/17/2022 18:40:51 11/17/19 23 11/17/2022 urina lysis , dipst ick Unknown Analyte Normal = Negati ve Not Available [address], [place], [address], 11/17/2022 18:40:51 11/17/19 23 11/17/2022 urina lysis , dipst ick Unknown Analyte Normal = 1.010, 1.015, 1.020 Not Available leena lee em[address], [place], [address], 11/17/2022 18:40:51 11/17/19 23 11/17/2022 urina lysis , dipst ick Unknown Analyte Normal = Negati ve Not Available 2099[facility] [address], [place], [address], 11/17/2022 18:40:51 11/17/19 23 11/17/2022 urina lysis , dipst ick Unknown Analyte Normal = 6.5, 7.0, 7.5, 8.0 Not Available 2099leena lee [address], [place], [address], 11/17/2022 18:40:51 11/17/19 23 11/17/2022 urina lysis , dipst ick Unknown Analyte Normal = Negati ve Not Available [facility] [address], [place], [address], 11/17/2022 18:40:51 11/17/19 23 11/17/2022 urina lysis , dipst ick Unknown Analyte Normal = 0.2, 1.0 Not Available 20[facility]e [address], [place], [address], 11/17/2022 18:40:51 11/17/19 23 11/17/2022 urina lysis , dipst ick Unknown Analyte Normal = Negati ve Not Available 2099leena lee [address], [place], [address], 11/17/2022 18:40:51 11/17/19 23 11/17/2022 urina lysis , dipst ick Unknown Analyte Normal = Negati ve Not Available 20[facility] [address], [place], [address], 11/17/2022 18:40:51 11/17/19 23 11/17/2022 urina lysis , dipst ick Unknown Analyte Yellow Not Available thelma [address], [place], [address], 11/17/2022 18:40:51 11/17/19 23 11/17/2022 urina lysis , dipst ick Unknown Analyte Clear Not Available thelma [address], [place], [address], 11/17/2022 18:40:51 11/17/19 23 11/17/2022 urina lysis , dipst ick Unknown Analyte Negati ve Not Available leena lee [address], [place], [address], 11/17/2022 18:40:51 11/17/19 23 11/17/2022 urina lysis , dipst ick Unknown Analyte Negati ve Not Available leena lee [address], [place], [address], 11/17/2022 18:40:51 11/17/19 23 11/17/2022 urina lysis , dipst ick Unknown Analyte Negati ve Not Available leena lee [address], [place], [address], 11/17/2022 18:40:51 11/17/19 23 11/17/2022 urina lysis , dipst ick Unknown Analyte 1.020 Not Available thelma [address], [place], [place], [address], 11/17/2022 18:40:51 11/17/19 23 11/17/2022 urina lysis , dipst ick Unknown Analyte Negati ve Not Available leena lee [address], [place], [place], [address], 11/17/2022 18:40:51 11/17/19 23 11/17/2022 urina lysis , dipst ick Unknown Analyte 7.0 Not Available thelma [address], [place], [address], 11/17/2022 18:40:51 11/17/19 23 11/17/2022 urina lysis , dipst ick Unknown Analyte Negati ve Not Available leena lee [address], [place], [address], 11/17/2022 18:40:51 11/17/19 23 11/17/2022 urina lysis , dipst ick Unknown Analyte 0.2 E.U./d L Not Available leena lee [address], [place], [address], 11/17/2022 18:40:51 11/17/19 23 11/17/2022 urina lysis , dipst ick Unknown Analyte Negati ve Not Available leena lee [address], [place], [address], 11/17/2022 18:40:51 11/17/19 23 11/17/2022 urina lysis , dipst ick Unknown Analyte Negati ve Not Available leena lee [address], [place], [address], 11/17/2022 18:40:51 Result Notes None recorded. Problems Name Problem SNOMED Code Status Onset Date Resolution Date Notes Provider Name and Address Organization Details Recorded Time Insomnia 177874612 Active 2021 EDIE Rivera - [facility] 17:56:19 Depressive disorder 91279913 Active 2021 JAZMIN gaspar PA - [facility] 17:56:26 Bipolar disorder 63177153 Active 2021 JAZMIN KUMAR null, PA - [facility] 2 17:56:36 Migraine 25081847 Active 2021 JAZMIN KUMAR null, PA - [facility] 2 17:56:43 Gastroesophage al reflux disease 777135458 Active 2021 JAZMIN KUMAR null, PA - [facility] 2 17:56:49 Asthma 124627094 Active 2021 JAZMIN KUMAR null, PA - [facility] 2 17:56:57 Constipation 50295695 Active 2021 JAZMIN KUMAR null, PA - [facility] 2 17:57:06 Problem Notes None recorded. Medical Equipment None Reported. Allergies Allergen ID Allergen Name Allergen Category Reaction Reaction Severity Criticality Documentation Date Start Date Code Code System Note Provider Name and Address Organization Details Recorded Time 25329 Miralax medicatio n Not available Not available Not available 09/20/2022 63956 5 RxNorm JAZMIN KUMAR null, PA - [facility] 2 17:54:12 70501 amoxicill in medicatio n Not available Not available Not available 09/20/2022 723 RxNorm JAZMIN BRUNOEY null, PA - [facility] 2 17:54:16 29443 Product containin g penicilli n (product) medicatio n Not available Not available Not available 09/20/2022 02693 8001 SNOMED JAZMIN BRUNOEY null, PA - [facility] 2 17:54:22 61521 sulindac medicatio n Not available Not available Not available 09/20/2022 45990 RxNorm JAZMIN KUMAR null, PA - [facility] 2 17:54:29 58621 sennoside s, ASSISTED medicatio n Not available Not available Not available 09/20/2022 89949 RxNorm JAZMIN KUMAR null, [facility] - [facility] [...] Updated DateTime 09/20/2022 162.56 cm 35.9 kg/m2 32141.81 g JAZMIN IRIZARRY - [facility] 09/20/2022 [...] Updated DateTime 3 162.56 cm 35.9 kg/m2 39000.8 1 g 10 99 % 99 % 81 /min 20 /min 97.8 [degF] 147 mm[Hg] 98 mm[Hg] Maeve Bell PA - [facility] 3 19:44:52 Date Recorded Systolic blood pressure Diastolic blood pressure Provider Name and Address Organization Details Last Updated DateTime 11/02/2022 132 mm[Hg] 84 mm[Hg] [facility] STEVE [facility] [place], [address], [place] - [facility] 11/02/2022 20:13:06 Date Recorded Body height Body mass index (BMI) Body weight Pain severity Cruz-Marcus FACES pain rating scale Oxygen saturation Oxygen saturation in Arterial blood by Pulse oximetry Heart rate Respiratory rate Body temperature Systolic blood pressure Diastolic blood pressure Provider Name and Address Organization Details Last Updated DateTime 3 162.56 cm 35.9 kg/m2 34032.8 1 g 5 97 % 97 % 95 /min 18 /min 97.9 [degF] 143 mm[Hg] 88 mm[Hg] Maeve Bell ND - [facility] 3 18:40:21 Social History [...] 09/20/2022 Have You Recently Traveled Abroad? No [email or web address] Information not available 09/20/2022 Do You Or Have You Ever Used Any Other Forms Of Tobacco Or Nicotine? No [email or web address] Information not available 09/20/2022 Sex: Unknown Functional Status None recorded. Mental Status None recorded. Family History Relationship Description Onset Age of this Age Resolved Age Notes LastModified by Organization Details LastModified Time Father No current problems or disability [email or web address] Not available 09/20 17:57:14 Mother No current problems or disability [email or web address] Not available 09/20 17:57:14 Medical History No [...] SNOMED-CT Code Diagnosis ICD10 Code Diagnosis Note [id number] [facility] [address] [place] [address] 03/01/2018 19:08:03 03/01/2018 20:09:30 [id number] [facility] [address] [place] [address] 04/20/2021 11:47:11 04/20/2021 12:34:46 [id number] EDIE Robles [facility] [address] [place] [address] 09/20/2022 17:17:57 09/20/2022 18:38:19 Influenza caused by Influenza A virus 852446639 J09.X2 [id number] [facility] [address] [place] [address] 11/02/2022 19:02:21 11/02/2022 20:15:12 Dysuria 03512896 R30.0 [id number] Sanya Suárez, [employer] [facility] [address] [address] 11/17/2022 16:39:43 11/17/2022 19:10:36 Acute urinary tract infection 586953080 N39.0 Health Concerns Section Related Observation LastModified by Organization Detai ls LastModified Time None Recorded Concern Status LastModified by Organization Details LastModified Time None Recorded Advance Directives Directive None Recorded Payers Encounter Date Sequence Insurance Name Policy Number Policy Tavarez Covered Member ID Tavarez Member ID Guarantor Name 03/01/2018 1 [facility] (MEDICAID HMO) MARY JANE Cartwright [id number] Lidmary Caregiver 04/20/2021 1 [facility] NET PLAN (MEDICAID HMO) MARY JANE Cartwright [id number] Lidmary Caregiver 09/20/2022 1 [facility] NET [facility]AN (MEDICAID HMO) MARY JANE Cartwright [id number] Lidmary Caregiver 11/02/2022 1 [facility] NET [facility] (MEDICAID HMO) MARY JANE Cartwright [id number] Lidmary Caregiver 11/17/2022 1 [facility] NET [facility] (MEDICAID HMO) MARY JANE Cartwright [id number] Lidmary Caregiver Notes Date Note Type Note Provider Name and Address Organization Details Recorded Time 2 text/html Sore throatReported bypatient.Notes:Pt and caregiver report cough, sore throat, congestion, fatigue x 3-4 days. Taking OTC naproxen and using albuterol as previously prescribed. Denies fever, SOB, wheezing currently. EDIE Robles [address] [place], [address], [place] - [facility] 09/20/2022 18:43:28 3 [...] Suárez NP [address] [place], [address], [place] - [facility] 11/17/2022 19:08:05 OBGyn Episode No OBEpisode recorded.
[2024-12-31 21:03] LABS: Influenza A PCR NEGATIVE (Negative); Influenza B PCR NEGATIVE (Negative); Resp Syncy Virus RNA Qual PCR NEGATIVE (Negative); SARS COV2 PCR INHOUSE NEGATIVE (Negative)
[2024-12-31 21:27] LABS: Troponin-I High Sensitivity 520.5 ng/L (<3.5-17.0)
[2024-12-31 21:50] LABS: Alanine Aminotransferase 16 U/L (0-31); Albumin Level 4.5 g/dL (3.5-5.0); Alkaline Phosphatase 115 U/L (39-117); Anion Gap 20 (12-20); Aspartate Amino Transferase 41 U/L (5-31); Bilirubin Direct 0.3 mg/dL (0.0-0.5); Bilirubin Total 1.1 mg/dL (0.0-1.0); Blood Urea Nitrogen 73 mg/dL (9-16); Calcium 9.3 mg/dL (8.4-10.2); Carbon Dioxide 15 mmol/L (22-29); Chloride 102 mmol/L (96-108); Estimated Glomerular Filt Rate 7; Glucose Random 119 mg/dL (60-115); Lipase 230 U/L (8-78); Magnesium 2.4 mg/dL (1.6-2.6); Sodium 134 mmol/L (135-145); Total Protein 7.7 g/dL (6.5-8.0)
[2024-12-31] MEDS: 0.9 % Sodium Chloride 1,000 ML 999 ML IV (22:30)
[2024-12-31] MEDS: ondansetron HCL 4 MG/2 ML VIAL IVPUSH (22:30)
[2024-12-31] MEDS: Labetalol HCL 100 MG/20 ML VIAL 20 MG IVPUSH (22:30)
[2024-12-31 22:38] LABS: Appearance Urine Cloudy; Color Urine Yellow; Glucose Urine UA Negative (Negative); Leukocyte Esterase Urine Trace (Negative); Nitrite Urine Negative (Negative); PH 7.5 (5.0-9.0); Specific Gravity - Urine 1.015 (1.005-1.025); UMIC TRIGGER UACC YES; Urine Blood Large (3+) (Negative); Urine Ketones Negative (Negative); Urine Protein >=1000 (4+) mg/dL (Neg-Trace)
[2024-12-31 22:48] LABS: Bacteria Urine 3+ (None Seen); WBC Urine 0-5 /HPF (0-5)
[2024-12-31 23:06] LABS: Basophils Absolute Auto 0.1 X10*3/uL (0.0-0.2); Basophils Percent Auto 0.5 % (0-2); Eosinophils Percent Auto 0.1 % (0-4); Hematocrit 34.1 % (37.0-47.0); Hemoglobin 12.9 g/dl (12.0-16.0); Imm Gran Abs Auto 0.17 X10*3/uL (0.00-0.03); Lymphocytes Absolute Auto 1.2 X10*3/uL (1.2-4.9); Lymphocytes Percent Auto 6.7 % (20-40); MANUAL DIFF FLAG SCAN; Mean Corpuscular HGB Conc 37.8 g/dl (31.0-35.0); Mean Corpuscular Hemoglobin 28.7 pg (27.0-33.0); Mean Corpuscular Volume 75.9 fL (80.0-98.0); Monocytes Absolute Auto 1.1 X10*3/uL (0.1-1.2); Monocytes Percent Auto 6.2 % (2-11); NRBC Pct Auto 0.1 /100WBC (0.0-0.2); Neutrophils Absolute Auto 14.8 x10*3/uL (2.0-8.3); Neutrophils Percent Auto 85.5 % (45-73); Platelet Count 62 X10*3/uL (160-400); Red Blood Count 4.49 X10*6/uL (4.20-5.50); Red Cell Distribution Width 13.9 % (11.0-16.0); SCAN SMEAR FLAG 1; White Blood Count 17.3 X10*3/uL (4.8-10.8)
[2024-12-31 23:25] LABS: SLIDE REVIEW VERIFIED
[2025-01-01] VITALS (21 sets, daily range): BP systolic 0–233; BP diastolic 0–142; PULSE 0–106; RESP 0–19; TEMP -17.7–36.7; O2SAT 0–100
[2025-01-01] MEDS: Labetalol HCL 100 MG/20 ML VIAL 20 MG IVPUSH ×2 (00:19→16:08)
[2025-01-01] MEDS: cloNIDine HCL 0.1 MG TABLET PO (01:29)
[2025-01-01] MEDS: 0.9 % Sodium Chloride 1,000 ML 999 ML IV (01:32)
[2025-01-01 02:06] LABS: HCG Quantitative < 2 mIU/mL
--- NOTE | 2025-01-01 03:36 | PM.IMHP ---
History of Present Illness Date of Service: 01/01/25 Chief Complaint: Nausea and vomiting This is a 34-year-old female with pertinent history of mood disorder, gastroesophageal reflux disease, mild intellectual disability, hypertension who presents to the emergency department for evaluation of nausea and vomiting. Patient states her symptoms started 3 days prior to presentation. She has been having nausea and multiple episodes of nonbloody emesis throughout the day. Also has been having abdominal discomfort which is generalized, constant, not related to food intake, nonradiating, nonprogressive and without any relieving factors. Patient has not been taking her p.o. antihypertensives for the last few days. Reduced p.o. intake as she is unable to hold anything down due to nausea and vomiting. Denies fever, chills or diarrhea. Does have chest pain which is reproducible with palpation. No palpitation, shortness of breath, changes in urinary or bowel habits. In the emergency department, initial blood pressure 246/152. Serum creatinine 6.9. Review of Systems Constitutional: Constitutional: Reports fatigue, Reports malaise, Reports poor appetite and Reports weakness Cardiovascular: Cardiovascular: Reports no additional cardiovascular complaints Respiratory: Respiratory: Reports no additional respiratory complaints Gastrointestinal: Gastrointestinal: Reports abdominal pain, Reports nausea and Reports vomiting Genitourinary: Genitourinary: Reports no additional female genitourinary complaints Neurologic: Reports weakness Endocrine: Endocrine: Reports fatigue [facility] Medical History Possible exposure to STD Breast mass, right Morbid obesity with BMI of 40.0-44.9, adult Hypertension Annual visit for general adult medical examination with abnormal findings Heart murmur, systolic Breast pain Right Achilles tendinitis Erythema intertrigo External hemorrhoids Bleeding hemorrhoids Vitamin D deficiency Heel callus Mild intermittent asthma in adult without complication Ex-cigarette smoker Motion sickness Mild intellectual disability Porcelain gallbladder Migraine Depression with anxiety Dysmenorrhea 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 Brother No problems noted. Brother No problems noted. Maternal Aunt Breast cancer Maternal Grandmother Hypertension Surgical History S/P laparoscopic cholecystectomy History of cholecystectomy History of benign neoplasm of breast History of eye surgery Social History Household Members: Caregiver Housing: House Housing Other:: detention Are you a primary customer care professional to a significant other at home: No Do you presently have visiting nurse or other home services: Yes (24 hr cargiver) Alcohol intake: never Patient Tobacco Use Status: Never used Tobacco Tobacco use type: Cigarette Cigarettes Per Day: 4 Years Smoked: 19 e-Cigarette/Vaping Use: Never Used Second Hand Smoke Exposure: No Substance Use Type: Marijuana service: No 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al status: disabled 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 Cognitive needs: No Hearing needs: No Vision needs: Yes Meds Allergies Allergy/AdvReac Type Severity Reaction Status Date / Time amoxicillin [AMOXICILLIN] Allergy Severe ANAPHYLAXIS, Verified 12/31/24 19:42 swelling Penicillins [PENICILLINS] Allergy Severe ANAPHYLAXIS Verified 12/31/24 19:42 polyethylene glycol 3350 Allergy Severe ANAPHYLAXIS Verified 12/31/24 19:42 [From MIRALAX] sulindac [SULINDAC] Allergy Severe SWELLING Verified 12/31/24 19:42 senna Allergy Intermediate Unknown Verified 12/31/24 19:42 seafood Allergy Hives Verified 12/31/24 19:42 Active Medications: Current Medications Acetaminophen (Acetaminophen 325 Mg Tablet) 650 mg PO Q6H PRN PRN Reason: Pain, Mild 1-3,fever,headache Calcium Carbonate (Calcium Carbonate 750 Mg Tab.Chew) 750 mg PO Q4H PRN PRN Reason: Heartburn Magnesium Hydroxide (Milk Of Magnesia 30 Ml Oral.Susp) 30 ml PO DAILY PRN PRN Reason: Constipation Melatonin (Melatonin 3 Mg Tablet) 6 mg PO BEDTIME PRN PRN Reason: Insomnia Ondansetron HCl (Ondansetron Hcl 4 Mg/2 Ml Vial) 4 mg IVPUSH Q8H PRN PRN Reason: Nausea and Vomiting Sodium Chloride (0.9 % Sodium Chloride Flush 3 Ml Syringe) 3 ml IVFLUSH QSHIFT [facility] Home Medications ?Medication ?Instructions ?Recorded ?Confirmed ?Last Taken ?Type polyvinyl alcohol 1.4 % eye drops 1 drp ophthalmic (eye) BEDTIME PRN 07/06/21 12/31/24 Unknown History (Artificial Tears (polyvinyl Dry Eyes alcohol)) melatonin 5 mg tablet 5 mg PO BEDTIME 07/26/21 12/31/24 Unknown History trazodone 150 mg tablet 300 mg PO BEDTIME Insomnia 11/22/24 12/31/24 Unknown History docusate sodium 100 mg capsule 200 mg PO BEDTIME 11/30/24 12/31/24 Unknown History (Colace) clonidine HCl 0.1 mg tablet 0.1 mg PO QAM 12/27/24 12/31/24 Unknown History dorzolamide-timolol (PF) 2 %-0.5 % 1 drp ophthalmic (eye) BID 12/27/24 12/31/24 Unknown History eye drops in a dropperette latanoprost 0.005 % eye drops 1 drp ophthalmic (eye) QPM 12/27/24 12/31/24 Unknown History verapamil 40 mg tablet 40 mg PO BID 12/27/24 12/31/24 Unknown History Physical Exam Vital Signs and Narrative: Vital Signs: Last Vital Signs Temp 98.1 F 01/01/25 00:08 Pulse 79 01/01/25 02:38 Resp 14 01/01/25 02:38 BP 192/115 H 01/01/25 02:38 Pulse Ox 100 01/01/25 02:38 O2 Del Method Room Air 01/01/25 02:38 BMI result Body Mass Index 38.1 Middle-aged female lying in bed in no distress Neck supple, contracted skin over left eye Regular rate and rhythm, S1-S2 heard Regular breath sounds bilaterally, no wheezing or crackles appreciated Abdomen without tenderness or rigidity Patient is awake, alert and oriented to self, place, time and person ; no focal motor deficit Psych: Normal mood No pedal edema Results Labs 12/31/24 22:29 01/01/25 03:39 Labs: Laboratory Results - last 24 hr 12/31/24 12/31/24 12/31/24 20:12 20:55 22:29 MCV 75.9 L MCH 28.7 MCHC 37.8 H RDW 13.9 Plt Count 62 L D MPV Not Reportable Immature Gran % (Auto) 1.0 H Neut % (Auto) 85.5 H Lymph % (Auto) 6.7 L Jerome % (Auto) 6.2 Eos % (Auto) 0.1 Baso % (Auto) 0.5 Lymph # (Auto) 1.2 Jerome # (Auto) 1.1 Eos # (Auto) 0.0 Baso # (Auto) 0.1 Abs Immat Gran (auto) 0.17 H Absolute Neuts (auto) 14.8 H Absolute Nucleated RBC 0.020 H Nucleated RBC % (auto) 0.1 Smear Tech's Comments VERIFIED Anion Gap 20 Estim Creat Clear Calc 13.0 Estimated GFR 7 Random Glucose 119 H Calcium 9.3 Magnesium 2.4 Total Bilirubin 1.1 H Direct Bilirubin 0.3 AST 41 H ALT 16 Alkaline Phosphatase 115 Total Protein 7.7 Albumin 4.5 Lipase 230 H Beta HCG, Quant < 2 Urine Color Yellow Urine Appearance Cloudy Urine pH 7.5 Ur Specific [place] 1.015 Urine Protein >=1000 (4+) H Urine Glucose (UA) Negative Urine Ketones Negative Urine Blood Large (3+) H Urine Nitrite Negative Ur Leukocyte Esterase Trace H Urine RBC 3-5 H Urine WBC 0-5 Ur Squamous Epith Cells 3-5 Urine Bacteria 3+ Hyaline Casts 3-5 Influenza Type A (PCR) NEGATIVE Influenza Type B (PCR) NEGATIVE RSV RNA Qual (PCR) NEGATIVE SARS-CoV-2 RNA (RT-PCR) NEGATIVE Assessment and Plan (1) Hypertensive emergency: Status: Acute (2) PEYTON (acute kidney injury): Status: Acute Plan This is a 34-year-old female with pertinent history of mood disorder, gastroesophageal reflux disease, mild intellectual disability, hypertension who presents to the emergency department for evaluation of nausea and vomiting. #. Hypertensive emergency: Will admit patient with cardiac monitoring. Initial blood pressure 246/152. Given IV labetalol and nitro paste in the ER with appropriate improvement in blood pressure. Resume p.o. home antihypertensives and titrate. Hold spironolactone the setting of PEYTON #. Intractable nausea and vomiting, abdominal pain: Monitor symptoms with improvement in blood pressure and BUN. If symptoms continue, will need GI consult. Imaging without any acute abnormality. Clear liquid diet and advance as tolerated #. Acute kidney injury stage III with met acidosis: Monitor creatinine, urine output with crystalloid resuscitation. Avoid nephrotoxins. Consulted Nephrology. UA with +3 protein, will quantify #. Elevated troponin: ?Likely type 2 in the setting of hypertensive emergency. Patient without typical chest pain. Given aspirin and 1 dose of therapeutic Lovenox in the ER. Cardiology consult. #. Hypokalemia: Due to GI losses. Repleted #. Mood disorder: Continue home mood stabilizers #. Gastroesophageal reflux disease: On Famotidine #. Thrombocytopenia: Continue to monitor, currently above transfusion threshold #. Leukocytosis, reactive Med rec pending DVT prophylaxis: Mechanical. Defer prophylactic Lovenox due to thrombocytopenia Full code Admit as inpatient and will require two night minimum hospital stay for (as above), which is not possible in a lesser acute setting. Specialist consult pending Quality Stroke Does the patient have a stroke diagnosis?: No VTE Prior VTE?: No VTE Risk Level:: Medical - moderate - high VTE Device Contraindication: Treatment Not Indicated VTE Drug Contraindication: N/A - Med Ordered
[2025-01-01 03:46] LABS: Venous Blood Gas Refer to POC result
[2025-01-01 03:48] LABS: VBG Base Excess -9.4 mmol/L; VBG HCO3 12 mmol/L (22-26); VBG pCO2 17 mmHg; VBG pH 7.45 (7.32-7.43); VBG pO2 216 mmHg
[2025-01-01] MEDS: Nitroglycerin 2 % Oint 1 GM Packet 1 INCH TRANSDERMA (03:49)
[2025-01-01] MEDS: Potassium Chloride Packet 20 MEQ PACKET 40 MEQ PO ×2 (03:49→06:31)
[2025-01-01 04:06] LABS: Troponin-I High Sensitivity 631.9 ng/L (<3.5-17.0)
[2025-01-01 04:07] LABS: Anion Gap 18 (12-20); Blood Urea Nitrogen 67 mg/dL (9-16); Carbon Dioxide 11 mmol/L (22-29); Chloride 109 mmol/L (96-108); Creatinine Clr Calc Pharmacy 13.7; Estimated Glomerular Filt Rate 7; Glucose Random 109 mg/dL (60-115); Sodium 135 mmol/L (135-145)
[2025-01-01] MEDS: Lactated Ringers 1,000 ML 100 ML IVCONT (06:28)
[2025-01-01] MEDS: Enoxaparin Sodium 100 MG/ML SYRINGE SUBCUT (06:30)
[2025-01-01] MEDS: Sodium Bicarbonate 650 MG TABLET PO (06:31)
[2025-01-01] MEDS: Aspirin 325 MG TABLET PO (06:31)
--- NOTE | 2025-01-01 07:00 | CA_ITS ---
Transthoracic Echocardiogram Patient (Last, First, Middle): Cassidy Cartwright, Gender: Female Date of : 1990 Age: 34 Procedure Date: 01/01/2025 Procedure Type: Transthoracic Echocardiogram Location: ER Height: 160.02 cm Weight: 97.52 kg BSA: 1.99 m2 Heart Rate: bpm BP: 164 / 113 mmHg Senior Principal Software Engineer: SAY Referring MD: Maximilian Felix MD Symptoms: NSTEMI Study Quality: Technically Difficult, contrast ECG Rhythm: Sinus Conclusions: - The left ventricular systolic function is normal. The calculated ejection fraction is 65% by biplane method. - No obvious valvular pathology seen on this study. Findings Procedure Information Contrast agent, definity, is being given per protocol without apparent complications. The study quality is limited by the patients inability to tolerate the test. Left Ventricle Normal left ventricular cavity size. There is mildly increased left ventricular wall thickness. The left ventricular systolic function is normal. The calculated ejection fraction is 65% by biplane method. There is no evidence of regional wall motion abnormalities. Evidence suggests grade I (mild) diastolic dysfunction. Right Ventricle Normal right ventricular cavity size and systolic function. Atria Both atria are normal in size. Aortic Valve There is a normal trileaflet aortic valve. There is no aortic valve stenosis. There is trace (trivial) aortic valve regurgitation. Mitral Valve The mitral valve appears normal. There is no mitral valve regurgitation. There is no mitral valve stenosis. Pulmonic Valve The pulmonic valve is likely normal. Tricuspid Valve There is trace tricuspid valve regurgitation. Tricuspid regurgitation envelope is inadequate for calculation of right ventricular systolic pressure. Great Vessels The asc aorta is normal in size. Venous The inferior vena cava was not well visualized. Pericardium/Pleural There is no evidence of pericardial effusion. Prior Study Comparison No significant change compared to prior study dated: 09/16/2024. Recommendations, Care & Conclusions No obvious valvular pathology seen on this study. Measurements 2D Linear Measurements IVSd: 1.26 0.6-0.9/0.6-1.0 cm LVIDd: 4.90 3.9-5.3/4.2-5.9 cm LVIDd Index: 2.46 2.4-3.2/2.2-3.1 cm/m2 LVIDs: 3.57 2.0-3.6 cm LVPWd: 1.20 0.7-1.1 cm LA Diam: 3.70 2.7-3.8/3.0-4.0 cm LAIDs Index: 1.86 1.5-2.3 cm/m2 LV Mass: 292.28 67-162/88-224 g LV Mass Index: 146.87 43-95/49-115 g/m2 LVOT Diam: 2.00 3.0+(-)1.3 cm 2D Systolic Function EF 4C: 66.60 >55% EF 2C: 64.10 >55% EF BiP: 64.90 >55% Mitral Valve MV Pk E: 0.62 MV PK A: 1.13 MV Decel Time: 176.00 E/A: 0.60 E'Lateral: 4.46 E'Medial: 3.59 E/E' Med: 17.40 E/E' Lat: 14.00 PHT: 52.00 MVA PHT: 4.23 Decel [place]: 3.55 Aortic Valve AoV Pk Lino: 2.01 AoV Mn Lino: 1.47 AoV VTI: 0.35 AoV Pk Grad: 16.00 Aov Mn Grad: 10.00 JELENA Cont.VTI: 1.70 LVOT LVOT Pk Lino: 1.12 LVOT Mn Lino: 0.76 LVOT VTI: 0.19 LVOT Pk Grad: 5.00 LVOT Mn Grad: 3.00 LVOT Diam: 2.00 LVOT Area: 3.14 Diastolic Function MV Pk E: 0.62 MV Pk A: 1.13 E/A: 0.60 E'Medial: 3.59 E/E' Med: 17.40 E' Laterial: 4.46 E/E' Lat: 14.00 Right Ventricle TAPSE (mm): 24.90 TVS' Lino: 13.90 Great Vessels Aorta Sinus of Valsalva: 3.10 2.0-3.[address] [place]: 2.53 1.7-3.4 cm Ao Asc: 2.90 2.1-3.4 cm Updated in Other Vendor System with Status of Final Maximilian Felix MD electronically signed on 01/01/2025 3:09:14 PM with status of Final
--- NOTE | 2025-01-01 07:48 | P.EN_ITS ---
Event Note Date of Service: 01/01/25 Event Note: 34-year-old female with pertinent history of mood disorder, gastroesophageal reflux disease, mild intellectual disability, hypertension who presents to the emergency department for evaluation of nausea and vomiting. 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 Initial blood pressure 246/152. Given IV labetalol and nitro paste in the ER with appropriate improvement in blood pressure. Renal Doppler ultrasound negative, scleroderma negative discussed with Nephrology> Possible TMA, patient need renal biopsy urgently with possible plasma exchange plus or minus rituximab/eculizimab based on biopsy report Given multiple risk factors including uncontrolled hypertension, elevated BMI, worsening renal function, transfer requests were made to [facility] Intractable nausea and vomiting, abdominal pain. Resolving Monitor symptoms with improvement in blood pressure and BUN. If symptoms continue, will need GI consult. Imaging without any acute abnormality. Clear liquid diet and advance as tolerated Acute kidney injury stage III with met acidosis Monitor creatinine, urine output with crystalloid resuscitation. Avoid nephrotoxins. Consulted following UA with +3 protein, will quantify Elevated troponin ?Likely type 2 in the setting of hypertensive emergency. Patient without typical chest pain. Given aspirin and 1 dose of therapeutic Lovenox in the ER. Cardiology consult. Hypokalemia Due to GI losses. Repleted Mood disorder Continue home mood stabilizers Gastroesophageal reflux disease On Famotidine Thrombocytopenia Continue to monitor, currently above transfusion threshold Leukocytosis reactive DVT prophylaxis: Mechanical. Defer prophylactic Lovenox due to thrombocytopenia Full code Time Spent With Patient Time: Total time managing care of this patient today ____ minutes.
[2025-01-01] MEDS: amLODIPine Besylate 5 MG TABLET PO (09:28)
--- NOTE | 2025-01-01 10:07 | PHA.MEDREC ---
Addendum entered by Darryl Barnes RPh 01/01/25 12:35: Last dose of medication was yesterday 12/31/24. Med rec was reviewed by [facility]. Original Note: Pharmacy Consult ? Medication Reconciliation Pharmacy has completed the medication reconciliation. Spoke to patient to confirm med list. Patient states she takes Prednisone 20 mg QOD but doesn't remember when she last took. Patient can't remember what dose of Verapamil. claims has 120 mg last filled 12/16/24 and 240 mg last filled 12/05/24 by two diffrent doctors. Called Michelle to confirm. Spoke to Kathy over the phone and she confirmed that the pharmacy received a discontinued notice for the Verapamil 240 mg. Danisha last filled [address] Connell office to verify what dose patient should be on. Dr Connell office confirmed Verapamil 120 mg Daily. Tried to contact Dr. Lincoln Willson, however go's straight to voicemail. Left on med rec 120 mg.
--- NOTE | 2025-01-01 10:41 | P.CDIM_ITS ---
PROVIDER RESPONSE TEXT: To clarify, the appropriate diagnosis supported by the clinical indicators: Acute on chronic QUERY TEXT: PHYSICIAN'S DOCUMENTATION REQUEST Date of Query: 01/01/2025 08:53 AM EDT Patient Name: Cassidy Cartwright Admit Date: 01/01/2025 Dear Lita Persaud DOPING SUPERVISOR, A review of the medical record indicates additional documentation may be needed. Please review below and update the documentation accordingly. Clinical Indicators: Per Event note : Acute kidney injury stage III with met acidosis Monitor creatinine, urine output with crystalloid resuscitation Clarify which of the following accurately represents the acuity of the metabolic acidosis. Possible options might include: Acute Acute on chronic Compensated Chronic stable condition Remission Other (explain) Clinically unable to determine (explain) Thank you, Margaret Bishop RN Use of terms such as suspected, likely, concern for, or probable (associated with a specific diagnosi s that is being evaluated, monitored, or treated as if it exists) are acceptable and can be coded in the inpatient se tting, when documented at the time of discharge. Please use your independent medical judgment in providing your response. THIS QUERY IS PART OF THE PERMANENT MEDICAL RECORD
[2025-01-01 10:46] LABS: Bilirubin Total 0.8 mg/dL (0.0-1.0); Lactate Dehydrogenase 1183 U/L (122-220)
--- NOTE | 2025-01-01 11:22 | P.CONCA_ITS ---
History of Present Illness History of Present Illness Date of Service: 01/01/25 Chief complaint: Nausea/Vomiting Narrative: This is a cardiology consultation regarding chest pains and elevated troponins. It seems that she is followed by Nephrology for renal issues but more recently, kidney function has been getting worse. Just about a month ago, creatinine was one 1.6-1.7 but currently it is more than 6. Blood pressure is markedly high. She was as much as 246/152 mm Hg in the ER. She had been having off and on chest pains for the last few days. Nothing provoking. Can happen any time. With rest or with exertion. No previous cardiac history. She has had some elevation in troponins. Hence we are consulted. Review of Systems 2 Review of Systems: Yes all other systems are reviewed and are negative Constitutional: Constitutional: Reports as per HPI and Reports no additional constitutional complaints Eyes: Eyes: Reports as per HPI and Denies no additional eye complaints ENT: Denies system reviewed and no additional complaints, except as documented and Reports as per HPI Cardiovascular: Cardiovascular: Reports as per HPI, Reports no additional cardiovascular complaints, Denies acrocyanosis, Denies cool extremities, Reports chest pain, Denies leg edema, Denies lightheadedness, Denies palpitations and Denies dyspnea Respiratory: Respiratory: Reports as per HPI, Denies no additional respiratory complaints and Denies dyspnea Gastrointestinal: Gastrointestinal: Reports as per HPI and Denies no additional gastrointestinal complaints Genitourinary: Genitourinary: Reports as per HPI Musculoskeletal: Musculoskeletal: Reports no additional musculoskeletal complaints and Reports as per HPI Integumentary/Breasts: Skin/Breast: Reports system reviewed and no additional complaints, except as docu Neurologic: Reports system reviewed and no additional complaints, except as documented and Reports as per HPI Psychiatric: Psychiatric: Reports no additional psychiatric complaints and Reports as per HPI Endocrine: Endocrine: Reports no additional endocrine complaints, Reports as per HPI and Denies palpitations Hematologic/Lymphatic: Hematologic/Lymphatic: Reports no additional hematologic/lymphatic complaints and Reports as per HPI Allergic/Immunologic: Allergic/Immunologic: Reports no additional allergic/immunologic complaints and Reports as per HPI [facility] Past Medical History Medical History Possible exposure to STD Breast mass, right Morbid obesity with BMI of 40.0-44.9, adult Hypertension Annual visit for general adult medical examination with abnormal findings Heart murmur, systolic Breast pain Right Achilles tendinitis Erythema intertrigo External hemorrhoids Bleeding hemorrhoids Vitamin D deficiency Heel callus Mild intermittent asthma in adult without complication Ex-cigarette smoker Motion sickness Mild intellectual disability Porcelain gallbladder Migraine Depression with anxiety Dysmenorrhea Benign tumor of breast Prosthetic eye globe Family History Family History Mother Hypertension Father No problems noted. Brother No problems noted. Brother No problems noted. Maternal Aunt Breast cancer Maternal Grandmother Hypertension Surgical History Surgical History S/P laparoscopic cholecystectomy History of cholecystectomy History of benign neoplasm of breast History of eye surgery Social History Social History Household Members: Caregiver Housing: House Housing Other:: intermediate Are you a primary primary care physician to a significant other at home: No Do you presently have visiting nurse or other home services: Yes (24 hr cargiver) Alcohol intake: never Patient Tobacco Use Status: Never used Tobacco Tobacco use type: Cigarette Cigarettes Per Day: 4 Years Smoked: 19 Smoked in Last 30 Days: No e-Cigarette/Vaping Use: Never Used Second Hand Smoke Exposure: No Use of substances other than those prescribed or required for medical reasons: No Substance Use Type: Marijuana Advance Directives: No Advance Directives Information Provided: No Do you have a plan to hurt others: No Plan Nutrition Risks: No Nutritional Risk Patient : No service: No 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al status: disabled 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 Cognitive needs: No Hearing needs: No Vision needs: Yes Meds Allergies Allergy/AdvReac Type Severity Reaction Status Date / Time amoxicillin [AMOXICILLIN] Allergy Severe ANAPHYLAXIS, Verified 12/31/24 19:42 swelling Penicillins [PENICILLINS] Allergy Severe ANAPHYLAXIS Verified 12/31/24 19:42 polyethylene glycol 3350 Allergy Severe ANAPHYLAXIS Verified 12/31/24 19:42 [From MIRALAX] sulindac [SULINDAC] Allergy Severe SWELLING Verified 12/31/24 19:42 senna Allergy Intermediate Unknown Verified 12/31/24 19:42 seafood Allergy Hives Verified 12/31/24 19:42 Active Medications: Current Medications Acetaminophen (Acetaminophen 325 Mg Tablet) 650 mg PO Q6H PRN PRN Reason: Pain, Mild 1-3,fever,headache Amlodipine Besylate (Amlodipine Besylate 5 Mg Tablet) 5 mg PO DAILY [facility]; Protocol Last Admin: 01/01/25 09:28 Dose: 5 mg Calcium Carbonate (Calcium Carbonate 750 Mg Tab.Chew) 750 mg PO Q4H PRN PRN Reason: Heartburn Lactated Ringer's (Lr) 1,000 mls @ 100 mls/hr IVCONT .Q10H [facility] Stop: 01/01/25 15:59 Last Admin: 01/01/25 06:28 Dose: 100 mls/hr Magnesium Hydroxide (Milk Of Magnesia 30 Ml Oral.Susp) 30 ml PO DAILY PRN PRN Reason: Constipation Melatonin (Melatonin 3 Mg Tablet) 6 mg PO BEDTIME PRN PRN Reason: Insomnia Ondansetron HCl (Ondansetron Hcl 4 Mg/2 Ml Vial) 4 mg IVPUSH Q8H PRN PRN Reason: Nausea and Vomiting Sodium Chloride (0.9 % Sodium Chloride Flush 3 Ml Syringe) 3 ml IVFLUSH QSHIFT [facility] Last Admin: 01/01/25 07:29 Dose: Not Given Home Medications ?Medication ?Instructions ?Recorded ?Confirmed ?Last Taken ?Type polyvinyl alcohol 1.4 % eye drops 1 drp ophthalmic (eye) BEDTIME PRN 07/06/21 01/01/25 12/31/24 History (Artificial Tears (polyvinyl Dry Eyes alcohol)) melatonin 5 mg tablet 5 mg PO BEDTIME 07/26/21 01/01/25 12/31/24 History trazodone 150 mg tablet 300 mg PO BEDTIME Insomnia 11/22/24 01/01/25 12/31/24 History docusate sodium 100 mg capsule 200 mg PO BEDTIME 11/30/24 01/01/25 12/31/24 History (Colace) clonidine HCl 0.1 mg tablet 0.1 mg PO DAILY 12/27/24 01/01/25 12/31/24 History dorzolamide-timolol (PF) 2 %-0.5 % 1 drp ophthalmic (eye) BID 12/27/24 01/01/25 12/31/24 History eye drops in a dropperette latanoprost 0.005 % eye drops 1 drp ophthalmic-Right BEDTIME 12/27/24 01/01/25 12/31/24 History brimonidine 0.2 % eye drops 1 drp ophthalmic-Right BID 01/01/25 01/01/25 12/31/24 History prednisone 20 mg tablet 20 mg PO Q48H 01/01/25 01/01/25 Unknown History verapamil 120 mg tablet,extended 120 mg PO DAILY 01/01/25 01/01/25 12/31/24 History release Physical Exam 2 Vital Signs: Vital Signs: Last Vital Signs Temp 98.1 F 01/01/25 06:00 Pulse 89 01/01/25 06:37 Resp 13 01/01/25 06:37 BP 165/113 H 01/01/25 09:28 Pulse Ox 99 01/01/25 06:00 O2 Del Method Room Air 01/01/25 06:00 BMI result Body Mass Index 38.1 Const: General: comfortable and no acute distress O rientation/consciousness: patient oriented x3 HEENT: Other: Unremarkable Head: Yes normal to inspection Neck: Neck: Yes normal visual inspection Chest: Chest palpation & inspection: normal inspection of the chest Resp: Auscultation: clear to auscultation bilaterally Cardio: Palpation: normal PMI Heart sounds: S1 normal heart sound present, S2 normal heart sound present, no gallops, Murmur heart sound present systolic II/ and at the right sternal border and no rubs GI: Palpation (GI): Soft to palpation Back/Spine/Pelvis: Other: unremarkable Skin: General skin exam: no rashes or lesions noted Neuro: General: patient oriented x3 Extrem: General: Yes normal to inspection Psych: Mental Status: mental status grossly normal Objective Labs and Meds 12/31/24 22:29 01/01/25 03:39 Lab results: Laboratory Results - last 24 hr 12/31/24 12/31/24 12/31/24 20:12 20:55 22:29 WBC 17.3 H RBC 4.49 Hgb 12.9 Hct 34.1 L MCV 75.9 L MCH 28.7 MCHC 37.8 H RDW 13.9 Plt Count 62 L D MPV Not Reportable Immature Gran % (Auto) 1.0 H Neut % (Auto) 85.5 H Lymph % (Auto) 6.7 L [place] % (Auto) 6.2 Eos % (Auto) 0.1 Baso % (Auto) 0.5 Lymph # (Auto) 1.2 [place] # (Auto) 1.1 Eos # (Auto) 0.0 Baso # (Auto) 0.1 Abs Immat Gran (auto) 0.17 H Absolute Neuts (auto) 14.8 H Absolute Nucleated RBC 0.020 H Nucleated RBC % (auto) 0.1 Smear Tech's Comments VERIFIED VBG pH VBG pCO2 VBG pO2 VBG HCO3 VBG O2 Saturation VBG Base Excess Sodium 134 L Potassium 3.0 L Chloride 102 Carbon Dioxide 15 L Anion Gap 20 BUN 73 H Creatinine 6.90 H* Estim Creat Clear Calc 13.0 Estimated GFR 7 Random Glucose 119 H Calcium 9.3 Magnesium 2.4 Total Bilirubin 1.1 H Direct Bilirubin 0.3 AST 41 H ALT 16 Alkaline Phosphatase 115 Lactate Dehydrogenase Troponin I High Sens 520.5 H* D Total Protein 7.7 Albumin 4.5 Lipase 230 H Beta HCG, Quant < 2 Urine Color Yellow Urine Appearance Cloudy Urine pH 7.5 Ur Specific [place] 1.015 Urine Protein >=1000 (4+) H Urine Glucose (UA) Negative Urine Ketones Negative Urine Blood Large (3+) H Urine Nitrite Negative Ur Leukocyte Esterase Trace H Urine RBC 3-5 H Urine WBC 0-5 Ur Squamous Epith Cells 3-5 Urine Bacteria 3+ Hyaline Casts 3-5 Influenza Type A (PCR) NEGATIVE Influenza Type B (PCR) NEGATIVE RSV RNA Qual (PCR) NEGATIVE SARS-CoV-2 RNA (RT-PCR) NEGATIVE 01/01/25 01/01/25 01/01/25 03:39 03:44 10:23 WBC RBC Hgb Hct MCV MCH MCHC RDW Plt Count MPV Immature Gran % (Auto) Neut % (Auto) Lymph % (Auto) [place] % (Auto) Eos % (Auto) Baso % (Auto) Lymph # (Auto) [place] # (Auto) Eos # (Auto) Baso # (Auto) Abs Immat Gran (auto) Absolute Neuts (auto) Absolute Nucleated RBC Nucleated RBC % (auto) Smear Tech's Comments VBG pH 7.45 H VBG pCO2 17 VBG pO2 216 VBG HCO3 12 L VBG O2 Saturation 99.0 VBG Base Excess -9.4 Sodium 135 Potassium 3.0 L Chloride 109 H Carbon Dioxide 11 L Anion Gap 18 BUN 67 H Creatinine 6.55 H* Estim Creat Clear Calc 13.7 Estimated GFR 7 Random Glucose 109 Calcium 8.0 L D Magnesium Total Bilirubin 0.8 Direct Bilirubin AST ALT Alkaline Phosphatase Lactate Dehydrogenase 1183 H Troponin I High Sens 631.9 H* Total Protein Albumin Lipase Beta HCG, Quant Urine Color Urine Appearance Urine pH Ur Specific [place] Urine Protein Urine Glucose (UA) Urine Ketones Urine Blood Urine Nitrite Ur Leukocyte Esterase Urine RBC Urine WBC Ur Squamous Epith Cells Urine Bacteria Hyaline Casts Influenza Type A (PCR) Influenza Type B (PCR) RSV RNA Qual (PCR) SARS-CoV-2 RNA (RT-PCR) ECG Interpretation: EKG with sinus tachycardia at 106/Min; biatrial enlargement; nonspecific ST-T changes; normal RI and corrected QT. Assessment and Plan (1) Hypertensive emergency: Status: Acute (2) PEYTON (acute kidney injury): Status: Acute (3) NSTEMI (non-ST elevated myocardial infarction): Status: Acute (4) Thrombocytopenia: Status: Acute Plan Markedly high blood pressures well into the 200s and diastolic as much as in the 140s. BUN is 67 and creatinine is 6.5. The creatinine has gone up substantially in the last month. High sensitivity troponins are 520 and 631. Essentially, this is hypertensive emergency with demand related troponin leak in the setting of elevated creatinine. Hence type 2 NSTEMI. In this setting, primary recommendation is to consult with Nephrology and aggressively manage hypertension. No need for IV heparin. She also has low platelets and hence there is a bleeding issues as well. Obtain echocardiogram. We will follow up with you. Discussed with Lita Persaud. Procedures Date of Service Date of Service: 01/01/25
--- NOTE | 2025-01-01 11:36 | MHC.CM.PN ---
Pt lives in shared living program, the person she lives with is her primary contact: Riacristal Hunt, . She has a guardian in place: Danielle Adilson [phone]. CM will call guardian to inform her that pt. is in hosp. Pt. PCP is Mindy Hutchinson, she does not require assistance with ADL's or use DME. DCP will be home in supportive living. CM has paperwork needed for DC (that MD needs to sign). Ria to transport pt. home at DC. CM to follow for DC needs.
[2025-01-01] MEDS: ondansetron HCL 4 MG/2 ML VIAL IVPUSH (12:38)
--- NOTE | 2025-01-01 13:22 | PM.HEMONCCN ---
Subjective - Subjective Chief complaint: Consult for: Nausea vomiting. Abdominal pain. Patient: new to practice Consult date: 01/01/25 Requesting Physician: Lita Persaud. Primary Care Provider: Mindy Hutchinson MD Family Provider: Mindy Hutchinson MD Medical Summary: CONSULT FOR: ABDOMINAL PAIN, NAUSEA VOMITING. QUESTION OF TTP. Crew Car Driver Utilized?: No - Guatemalan Speaking HPI - Consult Narrative Reason for consult: Consult for: Nausea vomiting abdominal pain. Thrombocytopenia Narrative: Cassidy Cartwright is a 34 year old lady with pertinent who presented to the emergency department yesterday, for evaluation of nausea and vomiting. Patient states her symptoms started 3 days prior to presentation. She has been having nausea and multiple episodes of nonbloody emesis throughout the day. Also has been having abdominal discomfort which is generalized, constant, not related to food intake, nonradiating, nonprogressive and without any relieving factors. Patient has not been taking her p.o. antihypertensives for the last few days. Reduced p.o. intake as she is unable to hold anything down due to nausea and vomiting. No diarrhea. Does have chest pain which is reproducible with palpation. No palpitation, shortness of breath. No changes in urinary or bowel habits. Denies fever, chills or night sweats. In the emergency department, initial blood pressure 246/152. Serum creatinine 6.9. Medical History;) history of mood disorder, gastroesophageal reflux disease, mild intellectual disability, hypertension. Possible exposure to STD Breast mass, right Morbid obesity with BMI of 40.0-44.9, adult Hypertension Annual visit for general adult medical examination with abnormal findings Heart murmur, systolic Breast pain Right Achilles tendinitis Erythema intertrigo External hemorrhoids Bleeding hemorrhoids Vitamin D deficiency Heel callus Mild intermittent asthma in adult without complication Ex-cigarette smoker Motion sickness Mild intellectual disability Porcelain gallbladder Migraine Depression with anxiety Dysmenorrhea. Surgical History:) S/P laparoscopic cholecystectomy History of cholecystectomy History of benign neoplasm of breast History of eye surgery Family History;) Mother Hypertension Father No problems noted. Brother No problems noted. Brother No problems noted. 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 Household Members: Caregiver Housing: House [facility] Other:: [facility] Are you a primary director of critical care to a significant other at home: No Do you presently have visiting nurse or other home services: Yes (24 hr cargiver) Alcohol intake: never Patient Tobacco Use Status: Never used Tobacco Tobacco use type: Cigarette Cigarettes Per Day: 4 Years Smoked: 19 e-Cigarette/Vaping Use: Never Used Second Hand Smoke Exposure: No Substance Use Type: Marijuana Review of Systems Constitutional: Constitutional: Reports fatigue, Reports malaise, Reports poor appetite and Reports weakness Cardiovascular: Cardiovascular: Reports no additional cardiovascular complaints Respiratory: Respiratory: Reports no additional respiratory complaints Gastrointestinal: Gastrointestinal: Reports abdominal pain, Reports nausea and Reports vomiting Genitourinary: Genitourinary: Reports no additional female genitourinary complaints Neurologic: Reports weakness Endocrine: Endocrine: Reports fatigue Review of Systems - Constitutional Reports no additional constitutional complaints, Reports fatigue, Reports lack of energy, Reports malaise, Reports poor appetite - Eyes Reports no additional eye complaints - ENT Reports no additional ear, nose, mouth, and throat complaints - Cardiovascular Reports no additional cardiovascular complaints - Respiratory Reports no additional respiratory complaints - Gastrointestinal Reports no additional gastrointestinal complaints - Genitourinary Reports no additional female genitourinary complaints - Musculoskeletal Reports no additional musculoskeletal complaints - Integumentary/Breasts Skin/Breast: Reports no additional skin complaints - Neurologic Reports no additional neurologic complaints, Reports as per HPI, Reports weakness - Psychiatric Reports no additional psychiatric complaints - Endocrine Reports no additional endocrine complaints - Hematologic/Lymphatic Reports no additional hematologic/lymphatic complaints - Allergic/Immunologic Reports no additional allergic/immunologic complaints [facility] Medical History: Medical History (Last Reviewed 01/01/25 @ 03:48 by Shayla Diaz MD) Annual visit for general adult medical examination with abnormal findings Benign tumor of breast Bleeding hemorrhoids Breast mass, right Breast pain Depression with anxiety Dysmenorrhea Erythema intertrigo Ex-cigarette smoker External hemorrhoids Heart murmur, systolic Heel callus Hypertension Migraine Mild intellectual disability Mild intermittent asthma in adult without complication Morbid obesity with BMI of 40.0-44.9, adult Motion sickness NSTEMI (non-ST elevated myocardial infarction) Porcelain gallbladder Possible exposure to STD Prosthetic eye globe Right Achilles tendinitis Vitamin D deficiency Functional capacity: independent ambulation Patient : No Family History: Family History (Last Reviewed 01/01/25 @ 03:48 by Shayla Diaz MD) Mother Hypertension Father No problems noted. Brother No problems noted. Brother No problems noted. Maternal Aunt Breast cancer Maternal Grandmother Hypertension Surgical History: Surgical History (Last Reviewed 01/01/25 @ 03:48 by Shayla Diaz MD) History of benign neoplasm of breast History of cholecystectomy History of eye surgery S/P laparoscopic cholecystectomy Social History: Social History (Last Reviewed 01/01/25 @ 03:48 by Shayla Diaz MD) Living Situation History: Household Members: Caregiver Housing: House Housing Other:: [facility] Are you a primary director of critical care to a significant other at home: No Do you presently have visiting nurse or other home services: Yes Do you presently have visiting nurse or other home services comment: 24 hr cargiver Tobacco History: Patient Tobacco Use Status: Never used Tobacco Tobacco use type: Cigarette Years Smoked: 19 e-Cigarette/Vaping Use: Never Used Second Hand Smoke Exposure: No Substance Use History: Substance Use Type: Marijuana Occupation Assessmet: service: No 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al status: disabled 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 Sex/Gender Assessment: Gender identity: Female Home Medications and Allergies Current Medications: Current Medications Acetaminophen (Acetaminophen 325 Mg Tablet) 650 mg PO Q6H PRN PRN Reason: Pain, Mild 1-3,fever,headache Calcium Carbonate (Calcium Carbonate 750 Mg Tab.Chew) 750 mg PO Q4H PRN PRN Reason: Heartburn Lactated Ringer's (Lr) 1,000 mls @ 100 mls/hr IVCONT .Q10H EVER Stop: 01/01/25 15:59 Last Admin: 01/01/25 06:28 Dose: 100 mls/hr Labetalol HCl (Labetalol Hcl 100 Mg Tablet) 100 mg PO BID EVER; Protocol Magnesium Hydroxide (Milk Of Magnesia 30 Ml Oral.Susp) 30 ml PO DAILY PRN PRN Reason: Constipation Melatonin (Melatonin 3 Mg Tablet) 6 mg PO BEDTIME PRN PRN Reason: Insomnia Nifedipine (Nifedipine Er 30 Mg Tab.Er.24) 30 mg PO DAILY EVER; Protocol Ondansetron HCl (Ondansetron Hcl 4 Mg/2 Ml Vial) 4 mg IVPUSH Q8H PRN PRN Reason: Nausea and Vomiting Last Admin: 01/01/25 12:38 Dose: 4 mg Sodium Chloride (0.9 % Sodium Chloride Flush 3 Ml Syringe) 3 ml IVFLUSH QSHIFT EVER Last Admin: 01/01/25 07:29 Dose: Not Given Home Medications ?Medication ?Instructions ?Recorded ?Confirmed ?Type polyvinyl alcohol 1.4 % eye drops 1 drp ophthalmic (eye) BEDTIME PRN 07/06/21 01/01/25 History (Artificial Tears (polyvinyl Dry Eyes alcohol)) melatonin 5 mg tablet 5 mg PO BEDTIME 07/26/21 01/01/25 History trazodone 150 mg tablet 300 mg PO BEDTIME Insomnia 11/22/24 01/01/25 History docusate sodium 100 mg capsule 200 mg PO BEDTIME 11/30/24 01/01/25 History (Colace) clonidine HCl 0.1 mg tablet 0.1 mg PO DAILY 12/27/24 01/01/25 History dorzolamide-timolol (PF) 2 %-0.5 % 1 drp ophthalmic (eye) BID 12/27/24 01/01/25 History eye drops in a dropperette latanoprost 0.005 % eye drops 1 drp ophthalmic-Right BEDTIME 12/27/24 01/01/25 History brimonidine 0.2 % eye drops 1 drp ophthalmic-Right BID 01/01/25 01/01/25 History prednisone 20 mg tablet 20 mg PO Q48H 01/01/25 01/01/25 History Allergies Allergy/AdvReac Type Severity Reaction Status Date / Time amoxicillin [AMOXICILLIN] Allergy Severe ANAPHYLAXIS, Verified 12/31/24 19:42 swelling Penicillins [PENICILLINS] Allergy Severe ANAPHYLAXIS Verified 12/31/24 19:42 polyethylene glycol 3350 Allergy Severe ANAPHYLAXIS Verified 12/31/24 19:42 [From MIRALAX] sulindac [SULINDAC] Allergy Severe SWELLING Verified 12/31/24 19:42 senna Allergy Intermediate Unknown Verified 12/31/24 19:42 seafood Allergy Hives Verified 12/31/24 19:42 Physical Exam Vital signs: Vital Signs Temp 98.1 F 01/01/25 06:00 Pulse 89 01/01/25 06:37 Resp 13 01/01/25 06:37 BP 165/113 H 01/01/25 09:28 Pulse Ox 99 01/01/25 06:00 O2 Del Method Room Air 01/01/25 06:00 Intake & Output 12/31/24 01/01/25 01/01/25 18:59 06:59 18:59 Intake Total 1999 Balance 1999 Intake: Intake, IV Amount 1999 0.9 % Sodium Chloride 1,000 ml 1999 @ 999 mls/hr IV .Q1H1M ONE Rx#: [id number] Other: Weight 97.522 kg Weight 97.522 kg Hem/Onc Consult Result - Labs CBC & Chem 7: 01/01/25 14:10 01/01/25 03:39 Labs: Short CBC 12/31/24 Range/Units 22:29 WBC 17.3 H (4.8-10.8) X10*3/uL Hgb 12.9 (12.0-16.0) g/dl Hct 34.1 L (37.0-47.0) % Plt Count 62 L D (160-400) X10*3/uL BMP 12/31/24 01/01/25 20:55 03:39 Sodium 134 L 135 Potassium 3.0 L 3.0 L Chloride 102 109 H Carbon Dioxide 15 L 11 L BUN 73 H 67 H Creatinine 6.90 H* 6.55 H* Calcium 9.3 8.0 L D Liver Function 12/31/24 01/01/25 Range/Units 20:55 10:23 Total Bilirubin 1.1 H 0.8 (0.0-1.0) mg/dL Direct Bilirubin 0.3 (0.0-0.5) mg/dL AST 41 H (5-31) U/L ALT 16 (0-31) U/L Alkaline Phosphatase 115 (39-117) U/L Albumin 4.5 (3.5-5.0) g/dL Urine 12/31/24 Range/Units 22:29 Urine Color Yellow Urine Appearance Cloudy Urine pH 7.5 (5.0-9.0) Ur Specific [place] 1.015 (1.005-1.025) Urine Protein >=1000 (4+) H (Neg-Trace) mg/dL Urine Glucose (UA) Negative (Negative) mg/dL Assessment and Plan Patient Active problem list reviewed?: Yes (1) Thrombocytopenia Status: Acute Assessment and plan: This is a pleasant 34-year-old lady, who presented yesterday symptoms of abdominal pain nausea and vomiting. She complains of dizziness. DATABASE: 12/31/2024. CBC: WBC 17.3, HGB 12.9, HCT 34 PLT 62. 01/01/2025. CBC: WBC 14.3, HGB 10.7, HCT 30, PLT 44. Peripheral smear: Normochromic microcytic anemia, target cells, no fragments, toxic looking neutrophils. Decreased platelet count with some large forms. LDH: 1183. LFTs: 0.8/115/41/16. U/A: Protein 4+, RBC: present. Doppler of her renal arteries was negative. DIFFERENTIAL DIAGNOSIS: 1. ACUTE INFECTION/SEPSIS: Is a possibility. She does have an elevated white count. peripheral smears reveals toxic neutrophils. 2. ITP: Also possible. Could be related to the infection. 3. HEMOLYTIC ANEMIA: Autoimmune hemolytic anemia or out of microangiopathic hemolysis. 4. DIC: Can be infection related. Will need to be ruled out. 5.. TTP/HUS: It is high on the list. She does not have the Pentad. Does have anemia, acute renal failure, thrombocytopenia. LDH is elevated. PLAN: Proceed with further evaluation. Check coags and fibrinogen: PT 10.9, PTT 34.5, fibrinogen 356. [id number] level: 0.75. Hemolytic screen: Retic count, haptoglobin: <8. Marti test. To have renal biopsy for confirmation of the diagnosis. In view of the concern for TTP/HS she is being transferred to [facility] for urgent evaluation and possible Plasmapheresis. Thank you for the consult, Will follow along with you, CC: Evangelina. - Time Spent With Patient Time Spent with Patient (in minutes): 30
--- NOTE | 2025-01-01 13:29 | P.CONNP_ITS ---
History of Present Illness Reason for Consult Consult date: 01/01/25 Reason for consult: PEYTON Chief Complaint Chief complaint: Nausea/Vomiting History of Present Illness Narrative: 34-year-old female with pertinent history of mood disorder, gastroesophageal reflux disease, mild intellectual disability, hypertension who presented to the emergency department for evaluation of nausea and vomiting. She had been having nausea and multiple episodes of nonbloody emesis throughout the day prior to presentation. She also has been having abdominal discomfort at that time which is generalized, constant, not related to food intake, nonradiating, nonprogressive and without any relieving factors. Patient had not been taking her p.o. antihypertensives for the last few days. She had reduced p.o. intake as she is unable to hold anything down due to nausea and vomiting. She denied fever, chills or diarrhea. She has no palpitation, shortness of breath, changes in urinary habits. She has no history of diabetes mellitus, palpitation, orthostasis. She has high BMI and is not very strict with low-sodium diet. She has no history of glomerular diseases. Her renal function had been getting worse and now has been having worsening proteinuria. She denies using drugs other than Marijuana. She does not takes nonsteroidal anti-inflammatories regularly. She has increased eye pressure in the eyes and was given Diamox which she took only for 2 days and she is currently on drops. Her work up has been negative for her worsening renal function and creatinine at presentation was 6.9. Her platelet count currently is 62. Her mental status is at baseline Review of Systems Review of Systems Yes all other systems are reviewed and are negative [facility] Past Medical History Medical History Possible exposure to STD Breast mass, right Morbid obesity with BMI of 40.0-44.9, adult Hypertension Annual visit for general adult medical examination with abnormal findings Heart murmur, systolic Breast pain Right Achilles tendinitis Erythema intertrigo External hemorrhoids Bleeding hemorrhoids Vitamin D deficiency Heel callus Mild intermittent asthma in adult without complication Ex-cigarette smoker Motion sickness Mild intellectual disability Porcelain gallbladder Migraine Depression with anxiety Dysmenorrhea Benign tumor of breast Prosthetic eye globe Family History Family History Mother Hypertension Father No problems noted. Brother No problems noted. Brother No problems noted. Maternal Aunt Breast cancer Maternal Grandmother Hypertension Surgical History Surgical History S/P laparoscopic cholecystectomy History of cholecystectomy History of benign neoplasm of breast History of eye surgery Social History Social History Household Members: Caregiver Housing: House [facility] Other:: [facility] Are you a primary reproductive healthcare assistant to a significant other at home: No Do you presently have visiting nurse or other home services: Yes (24 hr cargiver) Alcohol intake: never Patient Tobacco Use Status: Never used Tobacco Tobacco use type: Cigarette Years Smoked: 19 e-Cigarette/Vaping Use: Never Used Second Hand Smoke Exposure: No Substance Use Type: Marijuana service: No 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al status: disabled 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 Cognitive needs: No Hearing needs: No Vision needs: Yes Meds Allergies Allergy/AdvReac Type Severity Reaction Status Date / Time amoxicillin [AMOXICILLIN] Allergy Severe ANAPHYLAXIS, Verified 12/31/24 19:42 swelling Penicillins [PENICILLINS] Allergy Severe ANAPHYLAXIS Verified 12/31/24 19:42 polyethylene glycol 3350 Allergy Severe ANAPHYLAXIS Verified 12/31/24 19:42 [From MIRALAX] sulindac [SULINDAC] Allergy Severe SWELLING Verified 12/31/24 19:42 senna Allergy Intermediate Unknown Verified 12/31/24 19:42 seafood Allergy Hives Verified 12/31/24 19:42 Active Medications: Current Medications Acetaminophen (Acetaminophen 325 Mg Tablet) 650 mg PO Q6H PRN PRN Reason: Pain, Mild 1-3,fever,headache Calcium Carbonate (Calcium Carbonate 750 Mg Tab.Chew) 750 mg PO Q4H PRN PRN Reason: Heartburn Lactated Ringer's (Lr) 1,000 mls @ 100 mls/hr IVCONT .Q10H EVER Stop: 01/01/25 15:59 Last Admin: 01/01/25 06:28 Dose: 100 mls/hr Labetalol HCl (Labetalol Hcl 100 Mg Tablet) 100 mg PO BID EVER; Protocol Magnesium Hydroxide (Milk Of Magnesia 30 Ml Oral.Susp) 30 ml PO DAILY PRN PRN Reason: Constipation Melatonin (Melatonin 3 Mg Tablet) 6 mg PO BEDTIME PRN PRN Reason: Insomnia Nifedipine (Nifedipine Er 30 Mg Tab.Er.24) 30 mg PO DAILY [facility]; Protocol Ondansetron HCl (Ondansetron Hcl 4 Mg/2 Ml Vial) 4 mg IVPUSH Q8H PRN PRN Reason: Nausea and Vomiting Last Admin: 01/01/25 12:38 Dose: 4 mg Sodium Chloride (0.9 % Sodium Chloride Flush 3 Ml Syringe) 3 ml IVFLUSH [facility] Last Admin: 01/01/25 07:29 Dose: Not Given Home Medications ?Medication ?Instructions ?Recorded ?Confirmed ?Last Taken ?Type polyvinyl alcohol 1.4 % eye drops 1 drp ophthalmic (eye) BEDTIME PRN 07/06/21 01/01/25 12/31/24 History (Artificial Tears (polyvinyl Dry Eyes alcohol)) melatonin 5 mg tablet 5 mg PO BEDTIME 07/26/21 01/01/25 12/31/24 History trazodone 150 mg tablet 300 mg PO BEDTIME Insomnia 11/22/24 01/01/25 12/31/24 History docusate sodium 100 mg capsule 200 mg PO BEDTIME 11/30/24 01/01/25 12/31/24 History (Colace) clonidine HCl 0.1 mg tablet 0.1 mg PO DAILY 12/27/24 01/01/25 12/31/24 History dorzolamide-timolol (PF) 2 %-0.5 % 1 drp ophthalmic (eye) BID 12/27/24 01/01/25 12/31/24 History eye drops in a dropperette latanoprost 0.005 % eye drops 1 drp ophthalmic-Right BEDTIME 12/27/24 01/01/25 12/31/24 History brimonidine 0.2 % eye drops 1 drp ophthalmic-Right BID 01/01/25 01/01/25 12/31/24 History prednisone 20 mg tablet 20 mg PO Q48H 01/01/25 01/01/25 Unknown History verapamil 120 mg tablet,extended 120 mg PO DAILY 01/01/25 01/01/25 12/31/24 History release Physical Exam Vital Signs: Last Vital Signs Temp 98.1 F 01/01/25 06:00 Pulse 89 01/01/25 06:37 Resp 13 01/01/25 06:37 BP 165/113 H 01/01/25 09:28 Pulse Ox 99 01/01/25 06:00 O2 Del Method Room Air 01/01/25 06:00 BMI result Body Mass Index 38.1 Const General: comfortable and no acute distress Orientation/consciousness: patient oriented x3 HEENT Head: Yes normocephalic Mouth: Normal oral and palatal mucosa present Eyes EOM: EOMs intact bilaterally Neck Neck: Yes supple Resp Auscultation: clear to auscultation bilaterally Cardio Jugular venous distension: no JVD Rate: regular rate GI Palpation (GI): Soft to palpation Auscultation: normal bowel sounds General: Yes no CVA tenderness Back/Spine/Pelvis Back: no CVA tenderness Skin General skin exam: no rashes or lesions noted Neuro General: patient oriented x3 and moves all extremities Extrem General: Yes no pedal edema Results Lab Results 12/31/24 22:29 01/01/25 03:39 Lab results: Chemistry 12/31/24 01/01/25 20:55 03:39 Sodium 134 L 135 Potassium 3.0 L 3.0 L Carbon Dioxide 15 L 11 L BUN 73 H 67 H Creatinine 6.90 H* 6.55 H* Calcium 9.3 8.0 L D Hematology 12/31/24 22:29 WBC 17.3 H Hgb 12.9 Plt Count 62 L D Urinalysis 12/31/24 22:29 Urine Color Yellow Urine Appearance Cloudy Urine pH 7.5 Ur Specific [place] 1.015 Urine Protein >=1000 (4+) H Urine Glucose (UA) Negative Urine Ketones Negative Urine Blood Large (3+) H Urine Nitrite Negative Ur Leukocyte Esterase Trace H Urine RBC 3-5 H Urine WBC 0-5 Ur Squamous Epith Cells 3-5 Hyaline Casts 3-5 Assessment and Plan (1) Thrombocytopenia: Status: Acute (2) Hypertensive urgency: Status: Acute (3) PEYTON (acute kidney injury): Status: Acute (4) Microscopic hematuria: Status: Acute (5) Proteinuria: Qualifiers: Proteinuria type: other Qualified Code(s): R80.8 - Other proteinuria Status: Acute Plan Hepatitis negative; HIV negative PLA2 R Antibody negative Ig G/ Ig M/ Ig A normal Anti PR3 negative Myeloperoxidase negative DsDNA negative C3/C4 normal Anti GBM negative Scleroderma negative LDH 1183 U/A protein 4 + RBC + Platelet count 62 Doppler of her renal arteries was negative RPGN- W/U todate negative; [place] smear being looked at. Hematology consult requested. 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 She has high BMI. She had been at risk for secondary FSGS. Her renal functions had been getting worse . She is not a diabetic. She does not monitor blood pressure at home. She is not compliant with low-sodium diet. She has symptoms suggestive of sleep apnea. . She was encouraged to lose weight and maintain low-sodium diet. She recently was started her on Prednisone which she has not been taking prior to presentation. She needs transfer for possible plasma pheresis etc... Lincoln Willson MD MRCP FACP FASN Procedures Date of Service Date of Service: 01/01/25
[2025-01-01] MEDS: NIFEdipine ER 30 MG TAB.ER.24 PO (14:10)
[2025-01-01] MEDS: Labetalol HCL 100 MG TABLET PO (14:14)
[2025-01-01 14:35] LABS: Baso%MD 0.5 %; Eos%MD 0.5 %; Hemoglobin 10.7 g/dl (12.0-16.0); IG%MD 1.4 %; Lymph%MD 9.6 %; Mean Corpuscular HGB Conc 35.7 g/dl (31.0-35.0); Mean Corpuscular Hemoglobin 27.9 pg (27.0-33.0); Mean Corpuscular Volume 78.3 fL (80.0-98.0); Mono%MD 8.9 %; NRBC Pct Auto 0.2 /100WBC (0.0-0.2); Neut%MD 79.1 %; Platelet Count 44 X10*3/uL (160-400); Red Blood Count 3.83 X10*6/uL (4.20-5.50); Red Cell Distribution Width 14.5 % (11.0-16.0); White Blood Count 14.7 X10*3/uL (4.8-10.8)
[2025-01-01 15:03] LABS: Fibrinogen 356 MG/DL (259-690); INTERNATIONAL NORM RATIO 0.9 (0.9-1.1); Prothrombin Time 10.9 SEC (10.9-12.4)
[2025-01-01 15:06] LABS: Partial Thromboplastin Time 34.5 SEC (26.0-36.8)
[2025-01-01 15:46] LABS: Haptoglobin < 8 mg/dL (35-250)
[2025-01-01] MEDS: Famotidine/PF 20 MG/2 ML VIAL IVPUSH (16:14)
--- NOTE | 2025-01-01 16:49 | PM.DS ---
DS: Providers Provider Date of Service: 01/01/25 Date of admission: 01/01/25 05:27 Date of discharge: 01/01/25 Primary care physician: Mindy Hutchinson MD Consults: 01/01/25 03:36 Consult to Nephrology Routine Consulting Provider: [facility] Reason for consultation: PEYTON on CKD 01/01/25 05:57 Consult to Cardiology Routine Consulting Provider: [facility] Reason for consultation: elevated troponin Has provider been notified: Yes 01/01/25 13:00 Consult to Hematology / Oncology Routine Consulting Provider: [facility] Reason for consultation: ? TTP DS: Transfer Hospital Acceptance Reason for Transfer: Higher level of care for plasmapheresis Name of Facility: [facility] DS: Diagnosis Discharge Diagnosis (1) Thrombocytopenia: Status: Acute DS: Summary Hospital Course Hospital Course: History and physical as per admitting provider. This is a 34-year-old female with pertinent history of mood disorder, gastroesophageal reflux disease, mild intellectual disability, hypertension who presents to the emergency department for evaluation of nausea and vomiting. Patient states her symptoms started 3 days prior to presentation. She has been having nausea and multiple episodes of nonbloody emesis throughout the day. Also has been having abdominal discomfort which is generalized, constant, not related to food intake, nonradiating, nonprogressive and without any relieving factors. Patient has not been taking her p.o. antihypertensives for the last few days. Reduced p.o. intake as she is unable to hold anything down due to nausea and vomiting. Denies fever, chills or diarrhea. Does have chest pain which is reproducible with palpation. No palpitation, shortness of breath, changes in urinary or bowel habits. In the emergency department, initial blood pressure 246/152. Serum creatinine 6.9. Hospital course: 34-year-old woman with a history of uncontrolled hypertension treated for intractable nausea and vomiting and what appears to be possible TMA. LDH 1183, urine protein 4+, platelet count 62, negative she was still sites, haptoglobin less than 8. Discussed with Nephrology. Plan is to transfer to [facility] for possible plasmapheresis. Patient will also need a renal biopsy for diagnosis Possible thrombotic microangiopathy Concern for hemolytic anemia LDH 1183, urine protein 4+, platelet count 62, negative schistocytes, haptoglobin<8 discussed with nephrology, rec transfer to tertiary care facility Hypertensive emergency cardiac monitoring. Initial blood pressure 246/152. Given IV labetalol and nitro paste in the ER with appropriate improvement in blood pressure. Renal Doppler ultrasound negative, scleroderma negative discussed with Nephrology> Possible TMA, patient need renal biopsy urgently with possible plasma exchange plus or minus rituximab/eculizimab based on biopsy report Given multiple risk factors including uncontrolled hypertension, elevated BMI, worsening renal function, transfer requests were made to [facility] Intractable nausea and vomiting, abdominal pain. Resolving Imaging without any acute abnormality. Clear liquid diet and advance as tolerated IV Pepcid b.i.d. Acute kidney injury CKD stage IIII with met acidosis 10/04/24 1.18, 01/01/25 6.55 Avoid nephrotoxins. UA with +3 protein Elevated troponin Likely type 2 in the setting of hypertensive emergency. Patient without typical chest pain. Given aspirin and 1 dose of therapeutic Lovenox in the ER. Cardiology consult> demand related ischemia from hypertension type 2 TN, no need for IV heparin, also in light of low platelets See echo report below Hypokalemia Due to GI losses. 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 Ordering Physician: Maximilian Felix MD Date of Service: 01/01/25 Procedure(s): CA echo transthorac w con Accession Number(s): cc: Maximilian Felix MD~ Transthoracic Echocardiogram Patient (Last, First, Middle): Cassidy Cartwright, Gender: Female Date of : 1990 Age: 34 Procedure Date: 01/01/2025 Procedure Type: Transthoracic Echocardiogram Location: ER Height: 160.02 cm Weight: 97.52 kg BSA: 1.99 m2 Heart Rate: bpm BP: 164 / 113 mmHg Composite Engineer: SAY Referring MD: Maximilian Felix MD Symptoms: NSTEMI Study Quality: Technically Difficult, contrast ECG Rhythm: Sinus Conclusions: - The left ventricular systolic function is normal. The calculated ejection fraction is 65% by biplane method. - No obvious valvular pathology seen on this study. Findings Procedure Information Contrast agent, definity, is being given per protocol without apparent complications. The study quality is limited by the patients inability to tolerate the test. Left Ventricle Normal left ventricular cavity size. There is mildly increased left ventricular wall thickness. The left ventricular systolic function is normal. The calculated ejection fraction is 65% by biplane method. There is no evidence of regional wall motion abnormalities. Evidence suggests grade I (mild) diastolic dysfunction. Right Ventricle Normal right ventricular cavity size and systolic function. Atria Both atria are normal in size. Aortic Valve There is a normal trileaflet aortic valve. There is no aortic valve stenosis. There is trace (trivial) aortic valve regurgitation. Mitral Valve The mitral valve appears normal. There is no mitral valve regurgitation. There is no mitral valve stenosis. Pulmonic Valve The pulmonic valve is likely normal. Tricuspid Valve There is trace tricuspid valve regurgitation. Tricuspid regurgitation envelope is inadequate for calculation of right ventricular systolic pressure. Great Vessels The asc aorta is normal in size. Venous The inferior vena cava was not well visualized. Pericardium/Pleural There is no evidence of pericardial effusion. Prior Study Comparison No significant change compared to prior study dated: 09/16/2024. Recommendations, Care & Conclusions No obvious valvular pathology seen on this study. Measurements 2D Linear Measurements IVSd: 1.26 0.6-0.9/0.6-1.0 cm LVIDd: 4.90 3.9-5.3/4.2-5.9 cm LVIDd Index: 2.46 2.4-3.2/2.2-3.1 cm/m2 LVIDs: 3.57 2.0-3.6 cm LVPWd: 1.20 0.7-1.1 cm LA Diam: 3.70 2.7-3.8/3.0-4.0 cm LAIDs Index: 1.86 1.5-2.3 cm/m2 LV Mass: 292.28 67-162/88-224 g LV Mass Index: 146.87 43-95/49-115 g/m2 LVOT Diam: 2.00 3.0+(-)1.3 cm 2D Systolic Function EF 4C: 66.60 >55% EF 2C: 64.10 >55% EF BiP: 64.90 >55% Mitral Valve MV Pk E: 0.62 MV PK A: 1.13 MV Decel Time: 176.00 E/A: 0.60 E'Lateral: 4.46 E'Medial: 3.59 E/E' Med: 17.40 E/E' Lat: 14.00 PHT: 52.00 MVA PHT: 4.23 Decel [place]: 3.55 Aortic Valve AoV Pk Lino: 2.01 AoV Mn Lino: 1.47 AoV VTI: 0.35 AoV Pk Grad: 16.00 Aov Mn Grad: 10.00 JELENA Cont.VTI: 1.70 LVOT LVOT Pk Lino: 1.12 LVOT Mn Lino: 0.76 LVOT VTI: 0.19 LVOT Pk Grad: 5.00 LVOT Mn Grad: 3.00 LVOT Diam: 2.00 LVOT Area: 3.14 Diastolic Function MV Pk E: 0.62 MV Pk A: 1.13 E/A: 0.60 E'Medial: 3.59 E/E' Med: 17.40 E' Laterial: 4.46 E/E' Lat: 14.00 Right Ventricle TAPSE (mm): 24.90 TVS' Lino: 13.90 Great Vessels Aorta Sinus of Valsalva: 3.10 2.0-3.[address] [place]: 2.53 1.7-3.4 cm Ao Asc: 2.90 2.1-3.4 cm Updated in Other Vendor System with Status of Final Maximilian Felix MD electronically signed on 01/01/2025 3:09:14 PM with status of Final Time Attestation Discharge Coordination Time (in mins): 55 Quality: Safe Use of Opioids Does Pt have an Active Cancer Diagnosis on the Problem List?: No Quality: Stroke Does the patient have a stroke diagnosis?: No Physical Exam Vital Signs: Vital Signs: Last Vital Signs Temp 98.1 F 01/01/25 06:00 Pulse 89 01/01/25 16:08 Resp 12 01/01/25 15:57 BP 184/116 H 01/01/25 16:08 Pulse Ox 100 01/01/25 15:57 O2 Del Method Room Air 01/01/25 15:57 BMI result Body Mass Index 38.1 DS: Data Data Completed and Pending Labs on day of discharge: Laboratory Results - last 24 hr 12/31/24 12/31/24 12/31/24 20:12 20:55 22:29 WBC 17.3 H RBC 4.49 Hgb 12.9 Hct 34.1 L MCV 75.9 L MCH 28.7 MCHC 37.8 H RDW 13.9 Plt Count 62 L D MPV Not Reportable Immature Gran % (Auto) 1.0 H Neut % (Auto) 85.5 H Lymph % (Auto) 6.7 L Crook % (Auto) 6.2 Eos % (Auto) 0.1 Baso % (Auto) 0.5 Lymph # (Auto) 1.2 Crook # (Auto) 1.1 Eos # (Auto) 0.0 Baso # (Auto) 0.1 Abs Immat Gran (auto) 0.17 H Absolute Neuts (auto) 14.8 H Absolute Nucleated RBC 0.020 H Nucleated RBC % (auto) 0.1 Smear Tech's Comments VERIFIED Smear Path Review Hold Purple Top PT INR APTT Fibrinogen VBG pH VBG pCO2 VBG pO2 VBG HCO3 VBG O2 Saturation VBG Base Excess Sodium 134 L Potassium 3.0 L Chloride 102 Carbon Dioxide 15 L Anion Gap 20 BUN 73 H Creatinine 6.90 H* Estim Creat Clear Calc 13.0 Estimated GFR 7 Random Glucose 119 H Haptoglobin Calcium 9.3 Magnesium 2.4 Total Bilirubin 1.1 H Direct Bilirubin 0.3 AST 41 H ALT 16 Alkaline Phosphatase 115 Lactate Dehydrogenase Troponin I High Sens 520.5 H* D Total Protein 7.7 Albumin 4.5 Lipase 230 H Beta HCG, Quant < 2 Hold Red Top Hold Yellow Top Urine Color Yellow Urine Appearance Cloudy Urine pH 7.5 Ur Specific Hum[place] 1.015 Urine Protein >=1000 (4+) H Urine Glucose (UA) Negative Urine Ketones Negative Urine Blood Large (3+) H Urine Nitrite Negative Ur Leukocyte Esterase Trace H Urine RBC 3-5 H Urine WBC 0-5 Ur Squamous Epith Cells 3-5 Urine Bacteria 3+ Hyaline Casts 3-5 Urine Creatinine Influenza Type A (PCR) NEGATIVE Influenza Type B (PCR) NEGATIVE RSV RNA Qual (PCR) NEGATIVE SARS-CoV-2 RNA (RT-PCR) NEGATIVE 01/01/25 01/01/25 01/01/25 03:39 03:44 10:23 WBC RBC Hgb Hct MCV MCH MCHC RDW Plt Count MPV Immature Gran % (Auto) Neut % (Auto) Lymph % (Auto) Crook % (Auto) Eos % (Auto) Baso % (Auto) Lymph # (Auto) Crook # (Auto) Eos # (Auto) Baso # (Auto) Abs Immat Gran (auto) Absolute Neuts (auto) Absolute Nucleated RBC Nucleated RBC % (auto) Smear Tech's Comments Smear Path Review Hold Purple Top PT INR APTT Fibrinogen VBG pH 7.45 H VBG pCO2 17 VBG pO2 216 VBG HCO3 12 L VBG O2 Saturation 99.0 VBG Base Excess -9.4 Sodium 135 Potassium 3.0 L Chloride 109 H Carbon Dioxide 11 L Anion Gap 18 BUN 67 H Creatinine 6.55 H* Estim Creat Clear Calc 13.7 Estimated GFR 7 Random Glucose 109 Haptoglobin Calcium 8.0 L D Magnesium Total Bilirubin 0.8 Direct Bilirubin AST ALT Alkaline Phosphatase Lactate Dehydrogenase 1183 H Troponin I High Sens 631.9 H* Total Protein Albumin Lipase Beta HCG, Quant Hold Red Top Hold Yellow Top Urine Color Urine Appearance Urine pH Ur Specific [place] Urine Protein Urine Glucose (UA) Urine Ketones Urine Blood Urine Nitrite Ur Leukocyte Esterase Urine RBC Urine WBC Ur Squamous Epith Cells Urine Bacteria Hyaline Casts Urine Creatinine Influenza Type A (PCR) Influenza Type B (PCR) RSV RNA Qual (PCR) SARS-CoV-2 RNA (RT-PCR) 01/01/25 01/01/25 01/01/25 14:10 14:10 14:40 WBC 14.7 H RBC 3.83 L Hgb 10.7 L Hct 30.0 L MCV 78.3 L MCH 27.9 MCHC 35.7 H RDW 14.5 Plt Count 44 L D MPV Not Reportable Immature Gran % (Auto) Neut % (Auto) Lymph % (Auto) Crook % (Auto) Eos % (Auto) Baso % (Auto) Lymph # (Auto) Crook # (Auto) Eos # (Auto) Baso # (Auto) Abs Immat Gran (auto) Absolute Neuts (auto) Absolute Nucleated RBC 0.030 H Nucleated RBC % (auto) 0.2 Smear Tech's Comments Smear Path Review Cancelled SEE NOTE Hold Purple Top SEE NOTE PT 10.9 INR 0.9 APTT 34.5 Fibrinogen 356 VBG pH VBG pCO2 VBG pO2 VBG HCO3 VBG O2 Saturation VBG Base Excess Sodium Potassium Chloride Carbon Dioxide Anion Gap BUN Creatinine Estim Creat Clear Calc Estimated GFR Random Glucose Haptoglobin < 8 L Calcium Magnesium Total Bilirubin Direct Bilirubin AST ALT Alkaline Phosphatase Lactate Dehydrogenase Troponin I High Sens Total Protein Albumin Lipase Beta HCG, Quant Hold Red Top See Note Hold Yellow Top See Note Urine Color Urine Appearance Urine pH Ur Specific [place] Urine Protein Urine Glucose (UA) Urine Ketones Urine Blood Urine Nitrite Ur Leukocyte Esterase Urine RBC Urine WBC Ur Squamous Epith Cells Urine Bacteria Hyaline Casts Urine Creatinine Influenza Type A (PCR) Influenza Type B (PCR) RSV RNA Qual (PCR) SARS-CoV-2 RNA (RT-PCR) 01/01/25 16:19 WBC RBC Hgb Hct MCV MCH MCHC RDW Plt Count MPV Immature Gran % (Auto) Neut % (Auto) Lymph % (Auto) Crook % (Auto) Eos % (Auto) Baso % (Auto) Lymph # (Auto) Crook # (Auto) Eos # (Auto) Baso # (Auto) Abs Immat Gran (auto) Absolute Neuts (auto) Absolute Nucleated RBC Nucleated RBC % (auto) Smear Tech's Comments Smear Path Review Hold Purple Top PT INR APTT Fibrinogen VBG pH VBG pCO2 VBG pO2 VBG HCO3 VBG O2 Saturation VBG Base Excess Sodium Potassium Chloride Carbon Dioxide Anion Gap BUN Creatinine Estim Creat Clear Calc Estimated GFR Random Glucose Haptoglobin Calcium Magnesium Total Bilirubin Direct Bilirubin AST ALT Alkaline Phosphatase Lactate Dehydrogenase Troponin I High Sens Total Protein Albumin Lipase Beta HCG, Quant Hold Red Top Hold Yellow Top Urine Color Urine Appearance Urine pH Ur Specific [place] Urine Protein Urine Glucose (UA) Urine Ketones Urine Blood Urine Nitrite Ur Leukocyte Esterase Urine RBC Urine WBC Ur Squamous Epith Cells Urine Bacteria Hyaline Casts Urine Creatinine 81.26 Influenza Type A (PCR) Influenza Type B (PCR) RSV RNA Qual (PCR) SARS-CoV-2 RNA (RT-PCR) Additional Comments Additional comments: Nephrology consultation note for 01/01/25 History of Present Illness Reason for Consult Consult date: 01/01/25 Reason for consult: PEYTON Chief Complaint Chief complaint: Nausea/Vomiting History of Present Illness Narrative: 34-year-old female with pertinent history of mood disorder, gastroesophageal reflux disease, mild intellectual disability, hypertension who presented to the emergency department for evaluation of nausea and vomiting. She had been having nausea and multiple episodes of nonbloody emesis throughout the day prior to presentation. She also has been having abdominal discomfort at that time which is generalized, constant, not related to food intake, nonradiating, nonprogressive and without any relieving factors. Patient had not been taking her p.o. antihypertensives for the last few days. She had reduced p.o. intake as she is unable to hold anything down due to nausea and vomiting. She denied fever, chills or diarrhea. She has no palpitation, shortness of breath, changes in urinary habits. She has no history of diabetes mellitus, palpitation, orthostasis. She has high BMI and is not very strict with low-sodium diet. She has no history of glomerular diseases. Her renal function had been getting worse and now has been having worsening proteinuria. She denies using drugs other than Marijuana. She does not takes nonsteroidal anti-inflammatories regularly. She has increased eye pressure in the eyes and was given Diamox which she took only for 2 days and she is currently on drops. Her work up has been negative for her worsening renal function and creatinine at presentation was 6.9. Her platelet count currently is 62. Her mental status is at baseline Review of Systems Review of Systems Yes all other systems are reviewed and are negative PMFSH Past Medical History Medical History Possible exposure to STD Breast mass, right Morbid obesity with BMI of 40.0-44.9, adult Hypertension Annual visit for general adult medical examination with abnormal findings Heart murmur, systolic Breast pain Right Achilles tendinitis Erythema intertrigo External hemorrhoids Bleeding hemorrhoids Vitamin D deficiency Heel callus Mild intermittent asthma in adult without complication Ex-cigarette smoker Motion sickness Mild intellectual disability Porcelain gallbladder Migraine Depression with anxiety Dysmenorrhea 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 Brother No problems noted. Brother No problems noted. Maternal Aunt Breast cancerMaternal Grandmother Hypertension Surgical History Surgical History S/P laparoscopic cholecystectomy History of cholecystectomy History of benign neoplasm of breast History of eye surgery Social History Social History Household Members: Caregiver Housing: House Housing Other:: penitentiary Are you a primary outdoor emergency care technician to a significant other at home: No Do you presently have visiting nurse or other home services: Yes (24 hr cargiver) Alcohol intake: never Patient Tobacco Use Status: Never used Tobacco Tobacco use type: Cigarette Years Smoked: 19 e-Cigarette/Vaping Use: Never Used Second Hand Smoke Exposure: No Substance Use Type: Marijuana service: No 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al status: disabled 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 Cognitive needs: No Hearing needs: No Vision needs: Yes Meds Allergies Allergy/AdvReac Type Severity Reaction Status Date / Time amoxicillin [AMOXICILLIN] Allergy Severe ANAPHYLAXIS, Verified 12/31/24 19:42 swelling Penicillins [PENICILLINS] Allergy Severe ANAPHYLAXIS Verified 12/31/24 19:42 polyethylene glycol 3350 Allergy Severe ANAPHYLAXIS Verified 12/31/24 19:42 [From MIRALAX] sulindac [SULINDAC] Allergy Severe SWELLING Verified 12/31/24 19:42 senna Allergy Intermediate Unknown Verified 12/31/24 19:42 seafood Allergy Hives Verified 12/31/24 19:42 Active Medications: Current Medications Acetaminophen (Acetaminophen 325 Mg Tablet) 650 mg PO Q6H PRN PRN Reason: Pain, Mild 1-3,fever,headache Calcium Carbonate (Calcium Carbonate 750 Mg Tab.Chew) 750 mg PO Q4H PRN PRN Reason: Heartburn Lactated Ringer's (Lr) 1,000 mls @ 100 mls/hr IVCONT .Q10H EVER Stop: 01/01/25 15:59 Last Admin: 01/01/25 06:28 Dose: 100 mls/hr Labetalol HCl (Labetalol Hcl 100 Mg Tablet) 100 mg PO BID EVER; Protocol Magnesium Hydroxide (Milk Of Magnesia 30 Ml Oral.Susp) 30 ml PO DAILY PRN PRN Reason: Constipation Melatonin (Melatonin 3 Mg Tablet) 6 mg PO BEDTIME PRN PRN Reason: Insomnia Nifedipine (Nifedipine Er 30 Mg Tab.Er.24) 30 mg PO DAILY EVRE; Protocol Ondansetron HCl (Ondansetron Hcl 4 Mg/2 Ml Vial) 4 mg IVPUSH Q8H PRN PRN Reason: Nausea and Vomiting Last Admin: 01/01/25 12:38 Dose: 4 mg Sodium Chloride (0.9 % Sodium Chloride Flush 3 Ml Syringe) 3 ml IVFLUSH QSHIFT EVER Last Admin: 01/01/25 07:29 Dose: Not Given Home Medications ?Medication ?Instructions ?Recorded ?Confirmed ?Last Taken ?Type polyvinyl alcohol 1.4 % eye drops 1 drp ophthalmic (eye) BEDTIME PRN 07/06/21 01/01/25 12/31/24 History (Artificial Tears (polyvinyl Dry Eyes alcohol)) melatonin 5 mg tablet 5 mg PO BEDTIME 07/26/21 01/01/25 12/31/24 History trazodone 150 mg tablet 300 mg PO BEDTIME Insomnia 11/22/24 01/01/25 12/31/24 History docusate sodium 100 mg capsule 200 mg PO BEDTIME 11/30/24 01/01/25 12/31/24 History (Colace) clonidine HCl 0.1 mg tablet 0.1 mg PO DAILY 12/27/24 01/01/25 12/31/24 History dorzolamide-timolol (PF) 2 %-0.5 % 1 drp ophthalmic (eye) BID 12/27/24 01/01/25 12/31/24 History eye drops in a dropperette latanoprost 0.005 % eye drops 1 drp ophthalmic-Right BEDTIME 12/27/24 01/01/25 12/31/24 History brimonidine 0.2 % eye drops 1 drp ophthalmic-Right BID 01/01/25 01/01/25 12/31/24 History prednisone 20 mg tablet 20 mg PO Q48H 01/01/25 01/01/25 Unknown History verapamil 120 mg tablet,extended 120 mg PO DAILY 01/01/25 01/01/25 12/31/24 History release Physical Exam Vital Signs: Last Vital Signs Temp 98.1 F 01/01/25 06:00 Pulse 89 01/01/25 06:37 Resp 13 01/01/25 06:37 BP 165/113 H 01/01/25 09:28 Pulse Ox 99 01/01/25 06:00 O2 Del Method Room Air 01/01/25 06:00 BMI result Body Mass Index 38.1 Const General: comfortable and no acute distress Orientation/consciousness: patient oriented x3 HEENT Head: Yes normocephalic Mouth: Normal oral and palatal mucosa present Eyes EOM: EOMs intact bilaterally Neck Neck: Yes supple Resp Auscultation: clear to auscultation bilaterally Cardio Jugular venous distension: no JVD Rate: regular rate GI Palpation (GI): Soft to palpation Auscultation: normal bowel sounds General: Yes no CVA tenderness Back/Spine/Pelvis Back: no CVA tenderness Skin General skin exam: no rashes or lesions noted Neuro General: patient oriented x3 and moves all extremities Extrem General: Yes no pedal edema Results Lab Results 12/31/24 22:29 01/01/25 03:39 Lab results: Chemistry 12/31/24 01/01/25 20:55 03:39 Sodium 134 L 135 Potassium 3.0 L 3.0 L Carbon Dioxide 15 L 11 L BUN 73 H 67 H Creatinine 6.90 H* 6.55 H* Calcium 9.3 8.0 L D Hematology 12/31/24 22:29 WBC 17.3 H Hgb 12.9 Plt Count 62 L D Urinalysis 12/31/24 22:29 Urine Color Yellow Urine Appearance Cloudy Urine pH 7.5 Ur Specific [place] 1.015 Urine Protein >=1000 (4+) H Urine Glucose (UA) Negative Urine Ketones Negative Urine Blood Large (3+) H Urine Nitrite Negative Ur Leukocyte Esterase Trace H Urine RBC 3-5 H Urine WBC 0-5 Ur Squamous Epith Cells 3-5 Hyaline Casts 3-5 Assessment and Plan (1) Thrombocytopenia: Status: Acute (2) Hypertensive urgency: Status: Acute (3) PEYTON (acute kidney injury): Status: Acute (4) Microscopic hematuria: Status: Acute (5) Proteinuria: Qualifiers: Proteinuria type: other Qualified Code(s): R80.8 - Other proteinuria Status: Acute Plan Hepatitis negative; HIV negative PLA2 R Antibody negative Ig G/ Ig M/ Ig A normal Anti PR3 negative Myeloperoxidase negative DsDNA negative C3/C4 normal Anti GBM negative Scleroderma negative LDH 1183 U/A protein 4 + RBC + Platelet count 62 Doppler of her renal arteries was negative RPGN- W/U todate negative; [place] smear being looked at. Hematology consult requested. 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 She has high BMI. She had been at risk for secondary FSGS. Her renal functions had been getting worse . She is not a diabetic. She does not monitor blood pressure at home. She is not compliant with low-sodium diet. She has symptoms suggestive of sleep apnea. . She was encouraged to lose weight and maintain low-sodium diet. She recently was started her on Prednisone which she has not been taking prior to presentation. She needs transfer for possible plasma pheresis etc... Lincoln Willson MD MRCP FACP FASN Procedures Date of Service Date of Service: 01/01/25 Discharge Plan Discharge Anticipated Discharge Date/Time: 01/01/25 16:40 Patient Disposition: er Acute Care Hospital Discharge Diagnosis: Hypertensive emergency Intractable nausea and vomiting PEYTON on CKD stage 3 Possible thrombotic microangiopathy, hemolytic anemia Hypokalemia Elevated troponin Referrals: Mindy Hutchinson MD [Primary Care Provider] - 1 Week Discharge Medications: New nifedipine 30 mg Tablet Extended Release 24hr 30 mg PO DAILY Qty: 30 0RF Protocol: Hold for SBP< HOLD for SBP < : 90 labetalol 100 mg Tablet 100 mg PO BID Qty: 60 0RF Protocol: Hold for SBP/HR < HOLD for SBP < : 90 HOLD for HR < : 60 famotidine (PF) 20 mg/2 mL Solution 20 mg IVPUSH BID Qty: 50 0RF Continued oxcarbazepine [Trileptal] 600 mg tablet 600 mg PO BID Qty: 60 3RF multivitamin Tablet 1 tab PO DAILY Qty: 90 0RF albuterol sulfate 90 mcg/actuation HFA aerosol inhaler 2 puff inhalation Q6H PRN (Reason: bronchospasm) Qty: 8.5 8RF albuterol sulfate 2.5 mg /3 mL (0.083 %) solution for nebulization 2.5 mg inhalation Q6H PRN (Reason: shortness of breath or wheezing) Qty: 75 5RF loratadine 10 mg tablet 10 mg PO DAILY PRN (Reason: allergy symptoms) Qty: 30 5RF sumatriptan succinate 50 mg tablet 50 mg PO DAILY PRN (Reason: Headache) Qty: 10 0RF hydrocortisone [Preparation H Hydrocortisone] 1 % cream 1 appl topical TID PRN (Reason: skin irritation/ painful hemorrhoid) Qty: 28.4 0RF docusate sodium [Colace] 100 mg capsule 200 mg PO BEDTIME clonidine HCl 0.1 mg tablet 0.1 mg PO DAILY brimonidine 0.2 % drops 1 drp ophthalmic-Right BID prednisone 20 mg tablet 20 mg PO Q48H polyvinyl alcohol [Artificial Tears (polyvin alc)] 1.4 % drops 1 drp ophthalmic (eye) BEDTIME PRN (Reason: Dry Eyes) melatonin 5 mg tablet 5 mg PO BEDTIME trazodone 150 mg tablet 300 mg PO BEDTIME famotidine 40 mg tablet 40 mg PO DAILY Qty: 90 0RF Rx Instructions: take 30 mins ac ondansetron 4 mg tablet,disintegrating 4 mg PO Q8H PRN (Reason: nausea and vomiting) 5 Days Qty: 15 0RF latanoprost 0.005 % drops 1 drp ophthalmic-Right BEDTIME Rx Instructions: Right eye dorzolamide-timolol (PF) 2-0.5 % dropperette 1 drp ophthalmic (eye) BID Discontinued verapamil 120 mg tablet extended release 120 mg PO DAILY spironolactone 25 mg tablet 25 mg PO DAILY Qty: 30 3RF Discharge Orders: Discharge Order (Routine); Ordered 01/01/25 Ordered By: Ltia Persaud Diet: Advance to usual diet Activity on Discharge: As tolerated Stand Alone Forms: Patient Portal Discharge page Print Language: Vietnamese Care Plan Goals: Plan: On labetalol, nifedipine for blood pressure Health Concerns: Hypertensive emergency Intractable nausea and vomiting PEYTON on CKD stage 3 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
[2025-01-01 16:52] LABS: Creatinine Urine 81.56 mg/dL
[2025-01-01 16:54] LABS: Atypical Lymph Absolute Manual 0.1 x10*3/uL; Atypical Lymphs Percent Manual 1 % (0-6); Band Neutrophils Percent 3 % (3-5); Eosinophils Absolute Manual 0.3 X10*3/uL (0.0-0.4); Eosinophils Percent Manual 2 % (0-4); Lymphocytes Absolute Manual 1.6 X10*3/uL (1.2-4.9); Lymphocytes Percent Manual 11 % (20-40); Macrocytosis 1+ (5-14) /OIF; Metamyelocytes Absolute 0.1 X10*3/uL; Metamyelocytes Percent 1 %; Monocytes Absolute Manual 0.3 X10*3/uL (0.1-1.2); Monocytes Percent Manual 2 % (2-11); Neutrophils Absolute Manual 12.1 X10*3/uL (2.0-8.3); Neutrophils Percent Manual 79 % (45-73); Platelet Estimate DECREASED (NORMAL); Platelet Morphology Comment NOTED; Promyelocytes Absolute 0.1 X10*3/uL; Promyelocytes Percent 1 %; RBC Morphology NOTED
[2025-01-01 16:55] LABS: Burr Cells 1+ (0-2) /OIF; Hypersegmented Neutrophils PRESENT; Large Platelet PRESENT; Tear Drop Cells 1+ (0-2) /OIF
[2025-01-01 17:22] LABS: Protein/Creatinine Ratio, Ur 2.89 (<0.2); Total Protein Urine Random 236 mg/dL (<12)
--- NOTE | 2025-01-01 18:37 | PC.NURSE ---
Pt being transferred to [facility]. Call placed to [facility] RN Kimberly for RN to RN report. Kimberly given opportunity for questions and all questions answered to satisfaction. [facility] arrives to transport Pt. RN report given and EMS given opportunity for questions--all questions answered to satisfaction. Care of Pt relinquished to [facility].
[2025-01-04 00:48] LABS: ADAMTS13 Activity 0.75 IU/mL (0.68-1.63)
[2025-01-04 22:44] LABS: Hexagonal Phase Neutralization Negative (Negative); PTT (LAC) Screen 46 sec (<=40)
== END 2025-01-01 22:16 | disposition short-term general hospital (02) | DRG 660 ==
LOC: HO.ED 01-01 05:38 → HO.EDOVER 01-01 05:41
PROVIDERS: Internal Medicine Medical Oncology; Internal Medicine Nephrology; Physician Assistant Medical; Admitting Provider Student in an Organized Health Care Education/Training Program; Emergency Provider Internal Medicine; PCP Internal Medicine; Visit Provider Nurse Practitioner Acute Care
DX: M31.10 Thrombotic microangiopathy, unspecified (principal); E87.22 Chronic metabolic acidosis; D69.6 Thrombocytopenia, unspecified; N17.9 Acute kidney failure, unspecified; E87.21 Acute metabolic acidosis; D59.4 Other nonautoimmune hemolytic anemias; I12.9 Hypertensive chronic kidney disease with stage 1 through stage 4 chronic kidney disease, or unspecified chronic kidney disease; N18.30 Chronic kidney disease, stage 3 unspecified; I16.1 Hypertensive emergency; D50.9 Iron deficiency anemia, unspecified; E87.6 Hypokalemia; K21.9 Gastro-esophageal reflux disease without esophagitis; Z20.822 Contact with and (suspected) exposure to COVID-19; Z79.52 Long term (current) use of systemic steroids; Z79.899 Other long term (current) drug therapy
CPT/HCPCS: 0241U; 36415; 74176; 80048; 80076; 81001; 82247; 82570; 82803; 83010; 83615; 83690; 83735; 84156; 84484; 84702; 85007; 85025; 85027; 85335; 85384; 85397; 85597; 85598; 85610; 85613; 85730; 93005; 93306; 99285; J1650; J1920; J2405; J7120; Q9957

== ENCOUNTER → 2024-12-31 19:36 | Outpatient (BNV) | payer OTHER, SELFPAY | PROVIDERS: Admitting Provider Student in an Organized Health Care Education/Training Program; Emergency Provider Internal Medicine; PCP Internal Medicine; Visit Provider Internal Medicine | DX: I51.7 Cardiomegaly (principal); R00.0 Tachycardia, unspecified | CPT/HCPCS: 93010 ==

== ENCOUNTER → 2025-01-01 00:54 | Outpatient (BNV) | payer OTHER, SELFPAY | PROVIDERS: Emergency Provider Internal Medicine; PCP Internal Medicine; Visit Provider General Practice | DX: N17.9 Acute kidney failure, unspecified (principal); D72.829 Elevated white blood cell count, unspecified; R10.9 Unspecified abdominal pain; R11.10 Vomiting, unspecified | CPT/HCPCS: 74176 ==

== ENCOUNTER → 2025-01-01 05:27 | Outpatient (BNV) | payer OTHER, SELFPAY | PROVIDERS: Admitting Provider Student in an Organized Health Care Education/Training Program; Emergency Provider Internal Medicine; PCP Internal Medicine; Visit Provider Student in an Organized Health Care Education/Training Program | DX: D69.6 Thrombocytopenia, unspecified (principal) | CPT/HCPCS: 99499 ==

== ENCOUNTER → 2025-01-01 05:27 | Outpatient (BNV) | payer OTHER, SELFPAY | PROVIDERS: Admitting Provider Student in an Organized Health Care Education/Training Program; Emergency Provider Internal Medicine; PCP Internal Medicine; Visit Provider Internal Medicine Medical Oncology | DX: D69.6 Thrombocytopenia, unspecified (principal) | CPT/HCPCS: 99222 ==

== ENCOUNTER → 2025-01-01 05:27 | Outpatient (BNV) | payer OTHER, SELFPAY | PROVIDERS: Admitting Provider Student in an Organized Health Care Education/Training Program; Emergency Provider Internal Medicine; PCP Internal Medicine; Visit Provider Internal Medicine Nephrology | DX: D69.6 Thrombocytopenia, unspecified (principal); I16.0 Hypertensive urgency; N17.9 Acute kidney failure, unspecified; R31.29 Other microscopic hematuria; R80.8 Other proteinuria | CPT/HCPCS: 99223 ==

== ENCOUNTER → 2025-01-01 05:27 | Outpatient (BNV) | payer OTHER, SELFPAY | PROVIDERS: Admitting Provider Student in an Organized Health Care Education/Training Program; Emergency Provider Internal Medicine; PCP Internal Medicine; Visit Provider Internal Medicine | DX: I21.4 Non-ST elevation (NSTEMI) myocardial infarction (principal); I16.1 Hypertensive emergency; N17.9 Acute kidney failure, unspecified; D69.6 Thrombocytopenia, unspecified; I51.89 Other ill-defined heart diseases | CPT/HCPCS: 93306; 99223 ==

== ENCOUNTER 2025-01-24 10:10 | Outpatient (REF) | payer OTHER, SELFPAY ==
[2025-01-24 10:31] LABS: MANUAL DIFF FLAG NO
--- OUTSIDE RECORDS SUMMARY | 2025-01-24 10:37 | XMS_ITS | Continuity of Care Document ---
Author Organization [facility] ter Address [address] [place] [id number]- Care Team Providers Care Client Program Manager Name Role Phone Fernandez Tyler MD [id number] Date(s): 01/01/25 - 01/21/[address] [address] Discharge Disposition: A-D/C Home Attending Physician: Mac Jean DO Admitting Physician: Maty Lopez MD, Radha Referring Physician: Not on Staff, Referring MD Encounter Type: Disch IP Allergies, Adverse Reactions, Alerts Substance Criticality Severity Reaction Reaction Severity Status ampicillin Active amoxicillin Active penicillins Active Shellfish Active Immunizations Given and Recorded Vaccine Date Status Refusal Reason Meningococcal Conjugate Vaccine 01/03/25 Given Meningococcal Conjugate Vaccine 1 08/29/07 Given meningococcal group B vaccine 01/03/25 Given influenza virus vaccine, inactivated 08/14/24 Gee rded influenza virus vaccine, inactivated 07/31/23 Gee rded influenza virus vaccine, inactivated 07/27/22 Gee rded influenza virus vaccine, inactivated 07/06/21 Gee rded influenza virus vaccine, inactivated 11/25/20 Gee rded influenza virus vaccine, inactivated 07/03/18 Gee rded influenza virus vaccine, inactivated 07/07/17 Gee rded influenza virus vaccine, inactivated 08/05/16 Gee rded [id number] 12y+ bivalent booster vax 10/13/22 Recorded pneumococcal 23-valent vaccine 10/14/21 Recorded SARS-CoV-2 (COVID-19) mRNA BNT-162b2 vac 08/22/21 Recorded SARS-CoV-2 (COVID-19) mRNA BNT-162b2 vac 11/05/20 Recorded SARS-CoV-2 (COVID-19) mRNA BNT-162b2 vac 10/15/20 Recorded tetanus/diphtheria/pertussis, acel(Tdap) 05/04/16 Recorded tetanus-diphtheria toxoids (Td) 01/25/14 Recorded Human Papillomavirus Vaccine 11/20/13 Recorded Human Papillomavirus Vaccine 09/18/13 Recorded Human Papillomavirus Vaccine 2 12/17/07 Given Human Papillomavirus Vaccine 3 08/29/07 Given Human Papillomavirus Vaccine 4 06/21/07 Given Human Papillomavirus Vaccine 5 06/12/07 Given diphtheria-tetanus toxoids (DT) 6 12/17/07 Given Tet/Diphth/Acel, Pertussis (oldterm) 11/22/05 Give n Tet/Diphth/Acel, Pertussis (oldterm) 11/22/05 Give n Tet/Diphth/Acel, Pertussis (oldterm) 10/25/04 Give n Hepatitis B Vaccine (old term) 06/10/97 Given Hepatitis B Vaccine (old term) 08/12/94 Given Hepatitis B Vaccine (old term) 04/07/93 Given Poliovirus Vaccine, Inactivated 06/10/97 Given Poliovirus Vaccine, Inactivated 09/12/93 Given Poliovirus Vaccine, Inactivated 92 Given Poliovirus Vaccine, Inactivated 92 Given Diphth-Tetanus Toxoids Adsorbed(oldterm) 06/10/97 Given Diphth-Tetanus Toxoids Adsorbed(oldterm) 92 Given Diphth-Tetanus Toxoids Adsorbed(oldterm) 92 Given Diphth-Tetanus Toxoids Adsorbed(oldterm) 92 Given Diphth-Tetanus Toxoids Adsorbed(oldterm) 92 Given Measles/Mumps/Rubella Virus Vaccine 12/02/93 Given Measles/Mumps/Rubella Virus Vaccine 01/03/93 Given Haemophilus B Conj Vaccine (oldterm) 92 Give n Haemophilus B Conj Vaccine (oldterm) 92 Give n Haemophilus B Conj Vaccine (oldterm) 92 Give n Haemophilus B Conj Vaccine (oldterm) 92 Give n 1Admin Note: vis given 2Admin Note: VIS Given 3Admin Note: vis given 4Admin Note: VIS GIVEN 5Admin Note: vis11/03/06 6Admin Note: [facility]. Medications Acetaminophen Tablet 650 mg, Tablet, By Mouth, Every 4 hours, PRN for Pain , Mild, Temperature Greater than 100.5, Routine, 01/01/25 8:07:00 PM EDT Start Date: 01/01/25 Stop Date: 01/22/25 Status: Discontinued Repeat number: 1 Albuterol (Eqv-ProAir HFA) 90 mcg/inh inhalation aerosol 1 inhalation = 90 mcg, Inhalation, Every 4 hours, PRN as needed for shortness of breath or wheezing, # 6.7 Gm, 0 Refills, Maintenance, 01/01/25 10:44:00 PM EDT, Aerosol, Partial fill upon patient request if the prescription is for a schedule II opioid drug. Start Date: 01/01/25 Status: Ordered Quantity: 6.7 Unit: g Repeat number: 1 albuterol 0.083% inhalation solution 3 mL = 2.5 mg, Inhalation, Every 6 hours, PRN Wheezing/Shortness of Breath, # 120 each, 0 Refills, Maintenance, 01/01/25 10:45:00 PM EDT, Solution, Partial fill upon patient request if the prescriptionis for a schedule II opioid drug. Start Date: 01/01/25 Status: Ordered Quantity: 120.0 Unit: each Repeat number: 1 Artificial Tears1.4% 1 drop, Eyes, Both, Daily, 0 Refills, Maintenance, 01/01/25 10:48:00 PM EDT, Partial fill upon patient request if the prescription is for a schedule II opioid drug. Start Date: 01/01/25 Status: Ordered Repeat number: 1 azithromycin 500 mg oral tablet = 500 mg, By Mouth, Daily, for 7 days, # 7 tablet, 0 Refills, Acute 01/28/25 12:11:00 PM EDT, 01/21/25 12:11:00 PM EDT, Tablet, [facility], Partial fill upon patient request if the prescription is for a schedule II opioid drug., 159, cm, 01/21/25 8:08:00 EDT, Height, 100.1, kg, 256:19:00 EDT, Dry Weight Start Date: 01/21/25 Stop Date: 01/28/25 Status: Ordered Quantity: 7.0 Unit: tablet Repeat number: 1 brimonidine 0.2% ophthalmic solution 1 drops, Topically, 2 times a day, rt eye, # 10 mL, 0 Refills, Maintenance, 01/01/25 10:47:00 PM EDT,Solution, Partial fill upon patient request if the prescription is for a schedule II opioid drug. Start Date: 01/01/25 Status: Ordered Quantity: 10.0 Unit: mL Repeat number: 1 cloNIDine 0.1 mg oral tablet 0.1 mg, By Mouth, Daily, # 30 tablet, Refills 0, Maintenance, 01/01/25 10:46:00 PM EDT, Partial fill upon patient request if the prescription is for a schedule II opioid drug. Start Date: 01/01/25 Status: Ordered Quantity: 30.0 Unit: tablet Repeat number: 1 Daily Shellie oral tablet 1 tablet, By Mouth, Daily, # 30 tablet, 0 Refills, Maintenance, 01/01/25 10:44:00 PM EDT, Tablet, Partial fill upon patient request if the prescription is for a schedule II opioid drug. Start Date: 01/01/25 Status: Ordered Quantity: 30.0 Unit: tablet Repeat number: 1 docusate sodium 100 mg oral capsule 1 capsule = 100 mg, By Mouth, Daily at bedtime, PRN as needed for constipation, # 20 capsule, 0 Refills, Maintenance, 01/01/25 10:53:00 PM EDT, Capsule, Partial fill upon patient request if the prescription is for a schedule II opioid drug. Start Date: 01/01/25 Status: Ordered Quantity: 20.0 Unit: capsule Repeat number: 1 dorzolamide-timolol 2.23%-0.68% ophthalmic solution 1 drops, Eyes, Both, 2 times a day, # 10 mL, 0 Refills, Maintenance, 01/01/25 10:50:00 PM EDT, Solution, Partial fill upon patient request if the prescription is for a schedule II opioid drug. Start Date: 01/01/25 Status: Ordered Quantity: 10.0 Unit: mL Repeat number: 1 famotidine 20 mg oral tablet 20 mg, By Mouth, Daily, # 30 tablet, Refills 0, Tot. Refills 0, Maintenance, 01/21/25 11:58:00 AM EDT, Route to Pharmacy Electronically, [facility], Partial fill upon patient request if the prescription is for a schedule II opioid drug., 159, cm, 01/21/25 8:08:00 EDT, Height, 100.1, kg, 01/07/25 6:19:00 EDT, Dry Weight Start Date: 01/21/25 Stop Date: 02/20/25 Status: Ordered Quantity: 30.0 Unit: tablet Repeat number: 1 HydroCORTisone 1% Topical 1 application, Topically, 3 times a day, 0 Refills, Maintenance, Cream Start Date: 01/01/25 Status: Ordered Repeat number: 1 labetalol 100 mg oral tablet 300 mg, Tablet, By Mouth, Hold for: sbp < 100, hr < 60, 01/21/25 3:00:00 PM EDT Start Date: 01/21/25 Stop Date: 01/21/25 Status: Completed Repeat number: 1 labetalol 300 mg oral tablet 1 tablet = 300 mg, By Mouth, 3 times a day, # 90 tablet, 0 Refills, Maintenance, 01/21/25 11:58:00 AM EDT, Tablet, [facility] 3, Partial fill upon patient request if the prescription is for a schedule II opioid drug., 159, cm, 01/21/25 8:08:00 EDT, Height, 100.1, kg, 01/07/25 6:19:00 EDT, Dry Weight Start Date: 01/21/25 Stop Date: 02/20/25 Status: Ordered Quantity: 90.0 Unit: tablet Repeat number: 1 latanoprost 0.005% ophthalmic solution 1 drops, Eye, Right, Daily at bedtime, # 3 mL, 0 Refills, Maintenance, 01/01/25 10:50:00 PM EDT, Ophth Solution, Partial fill upon patient request if the prescription is for a schedule II opioid drug. Start Date: 01/01/25 Status: Ordered Quantity: 3.0 Unit: mL Repeat number: 1 loratadine 10 mg oral tablet 10 mg, 1, tablet, By Mouth, Daily, # 90 tablet, Refills 0, Maintenance, 01/01/25 10:45:00 PM EDT, Partial fill upon patient request if the prescription is for a schedule II opioid drug. Start Date: 01/01/25 Status: Ordered Quantity: 90.0 Unit: tablet Repeat number: 1 Melatonin 5 mg oral tablet 1 tablet = 5 mg, By Mouth, Daily at bedtime, PRN for insomnia, # 60 tablet, 0 Refills, Maintenance,01/01/25 10:49:00 PM EDT, Tablet, Partial fill upon patient request if the prescription is for a schedule II opioid drug. Start Date: 01/01/25 Status: Ordered Quantity: 60.0 Unit: tablet Repeat number: 1 NIFEdipine 60 mg oral tablet, extended release 60 mg, By Mouth, Every 12 hours, # 60 tablet, Refills 0, Tot. Refills 0, Maintenance, 01/21/25 11:57:00 AM EDT, Route to Pharmacy Electronically, [facility], Partial fill upon patient request if the prescription is for a schedule II opioid drug., 159, cm, 01/21/25 8:08:00 EDT, Height, 100.1, kg, 01/07/25 6:19:00 EDT, Dry Weight Start Date: 01/21/25 Stop Date: 02/20/25 Status: Ordered Quantity: 60.0 Unit: tablet Repeat number: 1 ondansetron 4 mg oral tablet, disintegrating 1 tablet = 4 mg, By Mouth, Every 8 hours, PRN as needed for nausea/vomiting, 0 Refills, Maintenance, 01/01/25 10:50:00 PM EDT, DIS Tablet, Partial fill upon patient request if the prescription is for aschedule II opioid drug. Start Date: 01/01/25 Status: Ordered Repeat number: 1 OXcarbazepine 600 mg oral tablet 1 tablet = 600 mg, By Mouth, 2 times a day, # 180 tablet, 0 Refills, Maintenance, 01/01/25 10:44:00 PM EDT, Tablet, Partial fill upon patient request if the prescription is for a schedule II opioid drug. Start Date: 01/01/25 Status: Ordered Quantity: 180.0 Unit: tablet Repeat number: 1 SUMAtriptan 50 mg oral tablet 1 tablet = 50 mg, By Mouth, Daily, PRN for migraine headache, may repeat dose after 2 hours up to amaximum of 2, # 9 tablet, 0 Refills, Maintenance, 01/01/25 10:45:00 PM EDT, Tablet, Partial fill uponpatient request if the prescription is for a schedule II opioid drug. Start Date: 01/01/25 Status: Ordered Quantity: 9.0 Unit: tablet Repeat number: 1 traZODone 100 mg oral tablet 300 mg, 3, tablet, By Mouth, Daily at bedtime, # 90 tablet, Refills 0, Tot. 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 LUNGS AND PLEURA: Bilateral perihilar interstitial prominence suggestive of pulmonary edema. No effusions are seen. No pneumothorax. HEART, MEDIASTINUM AND TEMO: Mild prominence of the cardiac silhouette. Normal mediastinal and hilar contour. BONES AND SOFT TISSUES: No acute abnormality. IMPRESSION: Cardiac enlargement, pulmonary edema consistent with CHF/fluid overload. WSN: [id number] Ordering Physician: Jarad Oneill Dictated By: Mode Santos MD Dictated Date/Time: 01/12/25 9:42 pm Reviewed By: Mode Santos MD Signed By: Mode Santos MD Signed Date/Time: 01/12/25 9:42 pm Transcribed By: YASMINE Transcribed Date/Time: 01/12/25 9:30 pm * Exam Date Time Procedure Performing Provider Status 01/07/25 5:23 AM Chest Portable Yvrose Orellana (Ve rified) Notes: (Chest Portable) Reason For Exam: Shortness of Breath RESULT: Chest Portable Chest Portable semiupright at 4:40 AM Reason: Shortness of Breath; Clinical Question(s): ARDS COMPARISON: 01/06/2025 FINDINGS: LINES AND TUBES: None. LUNGS AND PLEURA: There is now extensive bilateral patchy, as well as areas of confluent airspace disease throughout both lungs, the latter most pronounced towards the lung bases. No appreciable pleural effusion. No pneumothorax. HEART, MEDIASTINUM AND TEMO: Heart is normal in size. Right hilum obscured. Stable left hilar and mediastinal contours. BONES AND SOFT TISSUES: No acute abnormality. IMPRESSION: Marked worsening in the chest since the preceding day's examination showing extensive bilateral airspace disease. Differential includes pneumonia, ARDS, aspiration. WSN: [id number] Ordering Physician: Pauline De La Cruz Dictated By: Golden Quinonez MD Dictated Date/Time: 01/07/25 8:50 am Reviewed By: Golden Quinonez MD Signed By: Golden Quinonez MD Signed Date/Time: 01/07/25 8:50 am Transcribed By: YASMINE Transcribed Date/Time: 01/07/25 8:32 am * Exam Date Time Procedure Performing Provider Status 01/06/25 4:[address] Chest W/O Contrast Dafne Lee; Zohreh (Verified) Notes: (CT Chest W/O Contrast) Reason For Exam: Respiratory Failure;Other: RESULT: CT Chest W/O Contrast CT Chest W/O Contrast INDICATION: Reason: Other:; Respiratory Failure; Clinical Question(s): Interstitial Alveolar Infiltration; Order Comment: TECHNIQUE: Helical CT scan of the chest without IV contrast, formatted in 3 planes. Weight-based protocol was performed using automatic exposure control. COMPARISON: Chest x-ray from the same date. FINDINGS: The heart is normal in size. There is no pericardial effusion. There is no thoracic adenopathy by size criteria. No endobronchial lesions are seen. There is extensive nodular groundglass patchy airspace opacitiesthroughout all pulmonary lobes. More focal consolidation within the right greater than left lower lobes is seen with adjacent trace pleural effusions. Lobular septal thickening predominantly within the right lower lobe is present. The visualized portions of the liver, spleen, pancreas, and adrenal glands are unremarkable. The gallbladder is surgically absent. The osseous structures are unremarkable. IMPRESSION: Groundglass nodular opacities and more focal consolidation throughout all pulmonary lobes, differential considerations for which include infection, inflammation, and pulmonary hemorrhage. Alveolar edema is less likely. WSN: [id number] Ordering Physician: Dora Arnold Dictated By: Julianna Tran MD Dictated Date/Time: 01/06/25 5:26 pm Reviewed By: Julianna Tran MD Signed By: Julianna Tran MD Signed Date/Time: 01/06/25 5:26 pm Transcribed By: YASMINE Transcribed Date/Time: 01/06/25 5:02 pm * Exam Date Time Procedure Performing Provider Status 01/06/25 10:48 AM US Doppler Ext Upper Venous Left Sanya Peralta; Zohreh (Verified) Notes: (US Doppler Ext Upper Venous Left) Reason For Exam: Pain/Tenderness Extremities RESULT: US Doppler Ext Upper Venous Left US Doppler Ext Upper Venous Left Reason: Pain Tenderness Extremities; Clinical Question(s): Thrombosis COMPARISON: None. IMAGING TECHNIQUE: Ultrasound examination of the upper extremity deep venous system was performed using grayscale, color, and spectral wave analysis including response to compression. Assessment includes the contralateral jugular and subclavian vein. FINDINGS: Internal jugular vein: Patent. No thrombosis. Subclavian vein: Patent. No thrombosis. Axillary vein: Patent. No thrombosis. Brachial vein: Patent. No thrombosis. Basilic vein: Patent. No thrombosis. Cephalic vein: Patent. No thrombosis. Contralateral internal jugular vein: Patent. No thrombosis. Contralateral subclavian vein: Patent. No thrombosis. IMPRESSION: No evidence of venous thrombosis. WSN: [id number] Ordering Physician: Dora Arnold Dictated By: Onur Haney MD Dictated Date/Time: 01/06/25 11:23 a Reviewed By: Onur Haney MD Signed By: Onur Haney MD Signed Date/Time: 01/06/25 11:23 am Transcribed By: YASMINE Transcribed Date/Time: 01/06/25 11:22 am * Exam Date Time Procedure Performing Provider Status 01/06/25 9:17 AM Chest Portable Jennifer Malin (Verified) Notes: (Chest Portable) Reason For Exam: sob;Pleuritic Pain RESULT: Chest Portable Examination: Portable chest performed on 01/06/2025. History: Pleuritic pain. Shortness of breath. Findings: A frontal view of the chest is compared to a prior study dated 10/03/2013. The cardiac silhouette is within normal limits for size. Bilateral lower lobe airspace opacities are present. The lungs are otherwise clear. Scoliosis within the spine is noted. Impression: Bilateral lower lobe airspace opacities, likely representing pneumonia although atelectasis is not fully excluded. WSN: [id number] Ordering Physician: Dora Arnold Dictated By: Julianna Tran MD Dictated Date/Time: 01/06/25 9:33 am Reviewed By: Julianna Tran MD Signed By: Julianna Tran MD Signed Date/Time: 01/06/25 9:33 am Transcribed By: YASMINE Transcribed Date/Time: 01/06/25 9:32 am Vital Signs Most recent to oldest [Reference Range]: 1 2 3 Height 159 cm (01/21/25 8:08 AM) 159 cm (01/20/25 11:13 PM) 159 cm (01/20/25 2:45 PM) Weight 96.55 kg (01/19/25 5:00 AM) 93.0 kg (01/17/25 4:00 AM) 98.8 kg (01/16/25 6:28 AM) Oxygen Saturation [94-100 %] 99 % (01/21/25 8:08 AM) 99 % (01/20/25 11:13 PM) 100 % (01/20/25 2:45 PM) Pulse Rate [55-90 bpm] 96 bpm *H* (01/21/25 3:40 PM) 96 bpm *H* (01/21/25 3:00 PM) 84 bpm (01/21/25 8:08 AM) Body Mass Index [18.5-24.99 kg/m2] 39.32 kg/m2 *>HHI* (01/02/25 12:00 AM) Blood Pressure [90-138/55-84 mm Hg] 132/85mm Hg (01/21/25 3:40 PM) 132/85mm Hg (01/21/25 3:00 PM) 147/82mm Hg *H* (01/21/25 8:08 AM) Respiratory Rate [16-30 br/min] 18 br/min (01/21/25 9:22 AM) 18 br/min (01/21/25 8:08 AM) 18 br/min (01/20/25 11:13 PM) Temperature [96.8-100.4 DegF] 98.4 DegF (01/21/25 8:08 AM) 98.3 DegF (01/20/25 11:13 PM) 98.1 DegF (01/20/25 2:45 PM) Liters per Minute 3 L/min (01/15/25 2:48 PM) 3 L/min (01/15/25 10:44 AM) 2 L/min (01/15/25 7:41 AM) Mode of Delivery (Oxygen) Room air (01/21/25 8:08 AM) Room air (01/20/25 11:13 PM) Room air (01/20/25 2:45 PM) Blood pressure sites Arm, left (01/21/25 8:08 AM) Arm, left (01/20/25 11:13 PM) Arm, right (01/20/25 2:45 PM) Temperature Route Oral (01/21/25 8:08 AM) Oral (01/20/25 11:13 PM) Oral (01/20/25 2:45 PM) Dry Weight 100.1 kg (01/07/25 6:19 AM) 99.4 kg (01/02/25 12:00 AM) Weight Obtained Via Standing scale (01/19/25 5:00 AM) Bed scale (01/17/25 4:00 AM) Standing scale (01/16/25 6:28 AM) Dry Weight Obtained Via Bed scale (01/07/25 6:19 AM) Note * Kathy Humphries RN: PERFORM Event Display: Discharge/Transfer Note Hospital Authored Date: [id number] Nursing Discharge Note Entered On: 01/21/2025 15:54 EDT Performed On: 01/21/2025 15:54 EDT by Kristel YOUSIF Kathy Nursing Discharge Note 2 Discharge Time : 01/21/2025 15:54 EDT Discharge Level of Care at Discharge : Home/Longterm/Foster Care Patient Left Unit Via : Ambulatory Patient Accompanied Off Unit with : Responsible adult DC Instructions Provided & Signed by Pt : Yes Patient Understands D/C Instructions : Yes Patient Instructions Discharge Signed : Yes Did Pt have Specialty Bed or Wound Vac : No Kathy Humphries RN - 01/21/2025 15:54 EDT * Mac Jean DO S: PERFORM Event Display: Discharge/Transfer Note Hospital Authored Date: [id number] 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 Age:??35 Years?Sex:??Female?:??[id number]?? 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) Acute hypoxic respiratory failure (J96.01) Hospital-acquired pneumonia (J18.9) Acute hemodialysis patient (Z99.2) Hypokalemia (E87.6) Primary hypertension (I10) GERD (gastroesophageal reflux disease) (K21.9) Mood disorder (F39) HTN (hypertension) (I10) YOHANA (acute kidney injury) (N17.9) Insomnia (G47.00) 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) Pulmonary edema (J81.1) Sepsis (A41.9) Hypertensive emergency (I16.1) _ Discharge Medications Albuterol (Albuterol (Eqv-ProAir HFA) 90 mcg/inh inhalation aerosol)??1 inhalation 90 Microgram Inhalation Every 4 hours as needed as needed for shortness of breath or wheezing Albuterol (albuterol 0.083% inhalation solution)??3 Milliliter 2.5 Milligram Inhalation Every 6 hours as needed Wheezing/Shortness of Breath Azithromycin (azithromycin 500 mg oral tablet)??500 Milligram By Mouth Daily for 7 Days Brimonidine Ophthalmic (brimonidine 0.2% ophthalmic solution)??1 Drops Topically 2 times a day rt eye Clonidine (cloNIDine 0.1 mg oral tablet)??0.1 Milligram By Mouth Daily Docusate (docusate sodium 100 mg oral capsule)??1 capsule 100 Milligram By Mouth Daily at bedtime as needed as needed for constipation Dorzolamide-Timolol Ophthalmic (dorzolamide-timolol 2.23%-0.68% ophthalmic solution)??1 Drops Eyes,Both 2 times a day Famotidine (famotidine 20 mg oral tablet)??20 Milligram By Mouth Daily for 30 Days Hydrocortisone Topical (HydroCORTisone ??1% Topical)??1 jorge Topically 3 times a day Labetalol (labetalol 300 mg oral tablet)??1 tab(s) 300 Milligram By Mouth 3 times a day for 30 Days Latanoprost Ophthalmic (latanoprost 0.005% ophthalmic solution)??1 Drops Eye, Right Daily at bedtime Loratadine (loratadine 10 mg oral tablet)??10 Milligram 1 tablet By Mouth Daily Melatonin (Melatonin 5 mg oral tablet)??1 tab(s) 5 Milligram By Mouth Daily at bedtime as needed for insomnia Multivitamin (Daily Shellie oral tablet)??1 tab(s) By Mouth Daily NIFEdipine (NIFEdipine 60 mg oral tablet, extended release)??60 Milligram By Mouth Every 12 hours for 30 Days Ocular Lubricant (Artificial Tears1.4%)??1 drop Eyes, Both Daily Ondansetron (ondansetron 4 mg oral tablet, disintegrating)??1 tab(s) 4 Milligram By Mouth Every 8 hours as needed as needed for nausea/vomiting Oxcarbazepine (OXcarbazepine 600 mg oral tablet)??1 tab(s) 600 Milligram By Mouth 2 times a day Sumatriptan (SUMAtriptan 50 mg oral tablet)??1 tab(s) 50 Milligram By Mouth Daily as needed for migraine headache may repeat dose after 2 hours up to a maximum of 2 Trazodone (traZODone 300 mg oral tablet)??1 tab(s) 300 Milligram By Mouth Daily at bedtime for 30 Days ? Medications Started azithromycin Doses Changed increased doses of bp meds PCP Follow-Up/Heads-Up monitoring bp and renal function Hospital Course ??35-year-old woman with a past medical history of hypertension, GERD, mood disorder and intellectual disability who presented as a transfer from [facility]??with??thrombotic microangiopathy.??Patient was admitted for plasmapheresis as well as possible renal biopsy??and ultimately suspicion i s??now for atypical HUS given limited response to??plasmapheresis. ??Hospitalization has been further complicated by acute hypoxic respiratory failure in the setting of cardiogenic pulmonary edema responding well to diuresis, subsequently due to worsening acute renal failure??related to atypical HUS required initiation of dialysis. ?? 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) Acute hemodialysis patient (Z99.2) Patient to the hospital with thrombocytopenia, elevated LDH, decreased haptoglobin and schistocyteson peripheral smear suggestive of TMA [id number]??is found to be negative and patient was also noted to be in acute renal failure Ultimately differential included TTP versus atypical HUS??and patient received plasma exchange with??some limited improvements and ultimately secondary to??not having robust improvement with this makes atypical HUS higher on differential Third session of dialysis completed on 01/10 with femoral dialysis catheter, removed on Monday01/10/2025 Hematology evaluated Renal following. Holding on renal biopsy and HD for now - S/p Steroids - Continue Eculizumab 900mg weekly for 4 weeks (01/06/2025, 01/13/2025, 01/20/2025, 01/27/2025)- last dose arranged as OP by renal team - Continue Azithromycin 500mg PO??daily for Meningococcal prophylaxis while on eculizumab x 2 weeks f/u wtih dr willson (renal) upon discharge ?? Hospital-acquired pneumonia (J18.9) Acute hypoxic respiratory failure (J96.01) improved Pulmonary edema(J81.1) Concern for Pneumonia Sepsis (A41.9) Patient developed acute hypoxic respiratory failure in the setting of cardiogenic pulmonary edema during hospitalization Required admission to ICU secondary to this but is now able to be weaned off of BiPAP??and tobi Additionally there was at one point concern for pneumonia given mildly elevated procalcitonin but given improving leukocytosis, no fever??and improving respiratory status with a sputum culture that is unremarkable, antibiotics discontinued - Sat 100% on room air ?? Hypertensive emergency(I61.1):??resolved. Currently on nifedipine, clonidine, labetalol. ?? Hyperglycemia (R73.9):?? Insulin sliding scale while on high-dose prednisone. Hemoglobin A1c 5.8 ?? Mood disorder (F39): Continue home oxcarbazepine 600 mg twice daily ?? Insomnia (G47.00):??Continue trazodone 300 mg daily at bedtime. ?? GERD (gastroesophageal reflux disease) (K21.9):?? Continue home p.o. famotidine 20 mg once daily for GI protection/GERD. ?? Glaucoma, right eye (H40.9):??Continue home eyedrops brimonidine, dorzolamide, timolol, latanoprost. ? Cassidy is??feeling well and very eager to return home today. ? Objective Vital Signs?? Temperature: 98.4 DegF (01/21/25 08:08:00) Temperature Route: Oral (01/21/25 08:08:00) Pulse Rate: 84 bpm (01/21/25 08:08:00) Respiratory Rate: 18 br/min (01/21/25 09:22:00) Systolic Blood Pressure:??147 mm Hg??High (01/21/25 08:08:00) Diastolic Blood Pressure: 82 mm Hg (01/21/25 08:08:00) Blood pressure sites: Arm, left (01/21/25 08:08:00) Mean Arterial Pressure: 104 mm Hg (01/21/25 08:08:00) Pulse Pressure: 65 mm Hg (01/21/25 08:08:00) Oxygen Saturation: 99 % (01/21/25 08:08:00) Mode of Delivery (Oxygen): Room air (01/21/25 08:08:00) Early Warning Score: 0 (01/21/25 09:38:24) ? . Physical Exam General:??NAD Head:??NCAT Eyes:??EOMI Ear, Nose and Throat:??MMM Respiratory:??CTA Cardiovascular:RRR Gastrointestinal:??soft nt nd Neurologic :alert and orientedx3 ?? Consultants renal heme Pending Results Add On Lab Order ordered on 01/04/2025 Add On Lab Order ordered on 01/08/2025 Add On Lab Order ordered on 01/08/2025 Add On Lab Order ordered on 01/10/2025 Add On Lab Order ordered on 01/13/2025 COVID-19 (2018 Novel Coronavirus) PCR ordered on 01/06/2025 COVID-19 (2018 Novel Coronavirus) PCR ordered on 01/07/2025 Protein/Creatinine Ratio Urine ordered on 01/19/2025 Transfuse RBCs ordered on 01/03/2025 Follow-Up Appointments Added Follow Up ?Time Frame ?Comments Demetris GARCIA, Lincoln Sy?3-5 day: call to discuss follow up visit Jayson GARCIA, Fernandez [facility] Face to Face ^[facility]Health[facility] Results Discharge Labs BACTERIOLOGY MRSA PCR Result Negative, MRSA target DNA not detected. ()?? 01/06/2025 15:45 S Aureus ??PCR Result Positive, SA target DNA detected. (Abnormal)?? 01/06/2025 15:45 Sputum Culture Specimen Source EXPECTORATED SPUTUM ()?? 01/06/2025 15:45 Sputum Cult Epithelial Cells None seen ()?? 01/06/2025 15:45 Gram Stain Evaluation Comment ()?? 01/06/2025 15:45 Sputum Gram Stain Result 1 Comment ()?? 01/06/2025 15:45 Sputum Gram Stain Result 2 Comment ()?? 01/06/2025 15:45 Sputum Gram Stain Result 3 Comment ()?? 01/06/2025 15:45 Sputum Culture Isolate 1 Comment ()?? 01/06/2025 15:45 White Blood Cells None seen ()?? 01/06/2025 15:45 Sputum Culture Status Final report ()?? 01/06/2025 15:45 ? BLOOD BANK Blood Type A Positive ()?? 2025 11:29 Antibody Screen Negative ()?? 2025 11:29 Direct Antiglobulin Test, Anti-IgG Anti-IgG : Negative ()?? 01/02/2025 07:56 Direct Antiglobulin Test, Anti-C3b,-C3d Anti-C3d : Negative ()?? 01/02/2025 07:56 TA Total Volume Removed 4067 mL ()?? 01/05/2025 08:09 FFP Unit ID [id number]-* ()?? 01/06/2025 12:09 FFP Available RE ()?? 01/06/2025 12:09 RBC Unit ID [id number] ()?? 01/03/2025 22:47 RBC Available PT ()?? 01/03/2025 22:47 ? BLOOD COUNT & DIFF WBC 6.3 k/mm3 ()?? 01/21/2025 01:57 RBC 2.79 m/mm3 (Low)?? 01/21/2025 01:57 Hgb 8.1 Gm/dL (Low)?? 01/21/2025 01:57 Hct 23.8 % (Low)?? 01/21/2025 01:57 MCV 85.3 femtoliters ()?? 01/21/2025 01:57 MCH 29.0 pg ()?? 01/21/2025 01:57 MCHC 34.0 Gm/dL ()?? 01/21/2025 01:57 Platelet Count 168 k/mm3 ()?? 01/21/2025 01:57 RDW-SD 41.3 femtoliters ()?? 01/21/2025 01:57 MPV 11.0 femtoliters ()?? 01/21/2025 01:57 Nucleated RBC (Automated) 0.0 #/100 WBC'S ()?? 01/21/2025 01:57 Abs. NRBC 0.0 k/mm3 ()?? 01/21/2025 01:57 Abs. Neut 4.6 k/mm3 ()?? 01/21/2025 01:57 Abs. Lymph 1.1 k/mm3 ()?? 01/21/2025 01:57 Abs. [place] 0.4 k/mm3 ()?? 01/21/2025 01:57 Abs. Eo 0.2 k/mm3 ()?? 01/21/2025 01:57 Abs. Baso 0.1 k/mm3 ()?? 01/21/2025 01:57 Neut % 72.1 % ()?? 01/21/2025 01:57 Lymph % 17.1 % ()?? 01/21/2025 01:57 [place] % 6.3 % ()?? 01/21/2025 01:57 Eos % 3.3 % ()?? 01/21/2025 01:57 Baso % 0.9 % ()?? 01/21/2025 01:57 Peripheral Blood Smear Review Interp. Reviewed by pathologist. ()?? 01/02/2025 08:43 Platelet Estimate DECREASED ()?? 01/06/2025 11:38 Hemoglobin (POC) POC Cartridge 10.2 Gm/dL (Low)?? 01/07/2025 01:50 Hematocrit (POC) POC Cartridge 30 % (Low)?? 01/07/2025 01:50 Retic Count 1.6 % ()?? 01/20/2025 02:08 Retic Count Corrected 0.8 % (Low)?? 01/20/2025 02:08 Retic Production Index 0.4 % (Low)?? 01/20/2025 02:08 Imm Gran 0.3 % ()?? 01/21/2025 01:57 Abs. Imm Gran 0.0 k/mm3 ()?? 01/21/2025 01:57 ? BLOOD GAS pH (POC) POC Cartridge 7.36 ()?? 01/07/2025 01:50 pCO2 (POC) POC Cartridge 45.4 mm Hg ()?? 01/07/2025 01:50 pO2 (POC) POC Cartridge 82 mm Hg ()?? 01/07/2025 01:50 Estimated Bicarbonate (POC) POC Cart 25.4 mmol/L ()?? 01/07/2025 01:50 % O2 Sat Arterial (POC) POC Cartridge 95 % (Low)?? 01/07/2025 01:50 FIO2 (POC) POC Cartridge 50 % ()?? 01/07/2025 01:50 Lactate, (POC) POC Cartridge 0.9 mmol/L ()?? 01/06/2025 22:51 Base Excess (POC) POC Cartridge 0 ()?? 01/07/2025 01:50 pH 7.38 ()?? 01/07/2025 04:37 pCO2 43 mm Hg ()?? 01/07/2025 04:37 pO2 79 mm Hg (Low)?? 01/07/2025 04:37 Bicarbonate, Estimated 25 mmol/L ()?? 01/07/2025 04:37 Specimen Type - Blood Gas ARTERIAL ()?? 01/07/2025 04:37 Percent O2 (FIO2) 50 ()?? 01/07/2025 04:37 ?? CARDIAC CK, Total 432 units/L (High)?? 01/07/2025 04:16 High Sensitivity Troponin (HSTnT) 150 ng/L (Critical)?? 01/01/2025 23:45 ?? CHEM GENERAL Sodium 138 mmol/L ()?? 01/21/2025 01:57 Potassium 4.2 mmol/L ()?? 01/21/2025 01:57 Chloride 101 mmol/L ()?? 01/21/2025 01:57 Bicarbonate Level 21 mmol/L (Low)?? 01/21/2025 01:57 Anion Gap 16 mmol/L ()?? 01/21/2025 01:57 Sodium (POC) POC Cartridge 136 mmol/L ()?? 01/07/2025 01:50 Potassium (POC) POC Cartridge 4.5 mmol/L ()?? 01/07/2025 01:50 Glucose Level 94 mg/dL ()?? 01/20/2025 02:08 Glucose (POC) POC Cartridge 93 ()?? 01/07/2025 01:50 Glucose, POC 86 mg/dL ()?? 01/19/2025 08:03 Hemoglobin A1C (Monitoring) 4.8 % ()?? 01/11/2025 00:22 BUN 72 mg/dL (High)?? 01/21/2025 01:57 Creatinine-Blood 7.97 mg/dL (High)?? 01/21/2025 01:57 Estimated GFR Creatinine 6 ML/MIN/1.73 M2 ()?? 01/21/2025 01:57 Calcium 9.0 mg/dL ()?? 01/20/2025 02:08 Calcium, Ionized pH Corrected 1.16 mmol/L ()?? 01/06/2025 03:15 Ionized Calcium (POC) POC Cartridge 1.16 mmol/L ()?? 01/07/2025 01:50 Phosphorus 7.5 mg/dL (High)?? 01/16/2025 01:07 Magnesium 2.2 mg/dL ()?? 01/16/2025 01:07 Protein, Total 6.4 Gm/dL ()?? 01/06/2025 21:50 Albumin 2.4 Gm/dL (Low)?? 01/08/2025 04:05 AG Ratio 1.6 ()?? 01/02/2025 03:08 LDH 398 units/L (High)?? 01/20/2025 02:08 Alkaline Phosphatase 68 units/L ()?? 01/06/2025 21:50 AST (SGOT) 19 units/L ()?? 01/06/2025 21:50 ALT (SGPT) 27 units/L ()?? 01/06/2025 21:50 Bilirubin, Total 0.2 mg/dL ()?? 01/11/2025 00:22 Bilirubin, Direct 0.1 mg/dL ()?? 01/11/2025 00:22 Bilirubin, Indirect 0.1 mg/dL ()?? 01/11/2025 00:22 Vitamin B12 Level 494 pg/mL ()?? 01/10/2025 07:19 Folic Acid Level 3.8 ng/mL (Low)?? 01/10/2025 07:19 Iron Level 114 mcg/dL ()?? 01/10/2025 07:19 Iron Binding Capacity, Unsaturated 94 mcg/dL (Low)?? 01/10/2025 07:19 Iron Binding Capacity, Estimated Total 208 mcg/dL ()?? 01/10/2025 07:19 % Iron Saturation 55 % ()?? 01/10/2025 07:19 Ferritin Level 458 ng/mL (High)?? 01/10/2025 07:19 C-Reactive Protein 0.4 mg/dL ()?? 01/04/2025 07:12 ? COAG INR 1.0 ()?? 01/06/2025 21:50 Protime (PT) 10.7 seconds ()?? 01/06/2025 21:50 APTT <22.0 seconds (Low)?? 01/06/2025 02:10 Fibrinogen 245 mg/dL ()?? 01/06/2025 02:10 D-Dimer 4.36 mg/L FEU (High)?? 01/02/2025 08:43 [id number] Activity 86.6 ()?? 01/02/2025 17:26 ADAMTS 13 Ab Comment Comment ()?? 01/02/2025 17:26 ? CYTOGENETICS/MOLECULAR PATHOLOGY aHUS Genetic Testing Reference lab report has been scanned into [facility] Clinical Notes, Patient ()?? 01/02/2025 08:43 ? FLUID STUDIES Body Fld Cult Not indicated. ()?? 01/07/2025 12:00 Note Bact Ag Cult Comment ()?? 01/07/2025 12:00 Spec Source S pneumo Urine ()?? 01/07/2025 12:00 Org ID S pneumo Not indicated. ()?? 01/07/2025 12:00 ?? HEME OTHER Sed Rate 2 mm/hr ()?? 01/02/2025 17:26 ? IMMUNOLOGY GENERAL Complement C3 116 mg/dL ()?? 01/13/2025 01:58 Complement C4 30 mg/dL ()?? 01/13/2025 01:58 Haptoglobin 74 mg/dL ()?? 01/20/2025 02:08 AHUS Complement Result Reference lab report has been scanned into [facility] Clinical Notes, Patient ()?? 01/02/2025 08:43 ?? MISC. CHEMISTRY Hold Green Top SPECIMEN DISCARDED AFTER 1 WEEK ()?? 01/06/2025 02:10 Procalcitonin 0.50 ng/mL ()?? 01/07/2025 04:16 Hold Gel Top SPECIMEN DISCARDED AFTER 1 WEEK ()?? 01/03/2025 19:10 ? SEROLOGY INF DISEASE Hepatitis B Surface Antigen NON REACTIVE ()?? 01/07/2025 13:30 Hepatitis C Ab NON REACTIVE ()?? 01/07/2025 13:30 Legionella pneumophila Antigen NEGATIVE ()?? 01/07/2025 12:00 S. Pneumococcus Urinary Ag NEGATIVE ()?? 01/07/2025 12:00 Anti-HBS Quant 190.00 mIU/mL ()?? 01/07/2025 13:30 ? UA/URINALYSIS Appear/Color, Urine LIGHT YELLOW ()?? 01/02/2025 11:55 Specific [place], Urine 1.012 ()?? 01/02/2025 11:55 pH, Urine 7.0 ()?? 01/02/2025 11:55 Albumin, Urine 2+ (Abnormal)?? 01/02/2025 11:55 Glucose, Urine TRACE (Abnormal)?? 01/02/2025 11:55 Ketones, Urine NEGATIVE ()?? 01/02/2025 11:55 Bilirubin, Urine NEGATIVE ()?? 01/02/2025 11:55 Hemoglobin, Urine 1+ (Abnormal)?? 01/02/2025 11:55 Nitrite, Urine NEGATIVE ()?? 01/02/2025 11:55 Leukocyte, Urine 1+ (Abnormal)?? 01/02/2025 11:55 Urobilinogen NORMAL mg/dL ()?? 01/02/2025 11:55 WBC's, Urine 16 /HPF (High)?? 01/02/2025 11:55 RBC's, Urine 3 /HPF ()?? 01/02/2025 11:55 Bacteria SLIGHT HPF (Abnormal)?? 01/02/2025 11:55 Squamous Epith 15 /HPF (High)?? 01/02/2025 11:55 Amorphous Crystals MODERATE /HPF ()?? 01/02/2025 11:55 Hold Urine Culture Testing available 48 hours from time of collection. ()?? 01/02/2025 11:55 ? URINE OTHER Collection Period, Urine 24 hrs ()?? 01/19/2025 08:50 Volume, Urine 1700 mLs ()?? 01/19/2025 08:50 Urine, NEGATIVE (N)?? 01/02/2025 11:55 Creatinine, Urine 24HR 1.1 Gm/24hr ()?? 01/19/2025 08:50 Creatinine, Urine Random 64.7 mg/dL ()?? 01/19/2025 08:50 Urea Nitrogen, Urine 24HR 6.6 Gm/24hr ()?? 01/19/2025 08:50 Urea Nitrogen, Urine Random 390.5 mg/dL ()?? 01/19/2025 08:50 Protein, Total Urine Random 111 mg/dL ()?? 01/02/2025 11:55 TP/Cr Ratio 1.68 (High)?? 01/02/2025 11:55 Creatinine, Urine 65.9 mg/dL ()?? 01/02/2025 11:55 Est Creatinine Clearance 8.16 mL/min ()?? 01/21/2025 03:02 ? VIROLOGY Adenovirus by PCR NEGATIVE ()?? 01/06/2025 11:53 Coronavirus 229E by PCR (not COVID-19) NEGATIVE ()?? 01/06/2025 11:53 Coronavirus HKU1 by PCR (not COVID-19) NEGATIVE ()?? 01/06/2025 11:53 Coronavirus NL63 by PCR (not COVID-19) NEGATIVE ()?? 01/06/2025 11:53 Coronavirus OC43 by PCR (not COVID-19) NEGATIVE ()?? 01/06/2025 11:53 Human Metapneumovirus by PCR NEGATIVE ()?? 01/06/2025 11:53 Rhinovirus/Enterovirus by PCR NEGATIVE ()?? 01/06/2025 11:53 Influenza A by PCR NEGATIVE ()?? 01/06/2025 11:53 Influenza B by PCR NEGATIVE ()?? 01/06/2025 11:53 Parainfluenza 1 by PCR NEGATIVE ()?? 01/06/2025 11:53 Parainfluenza 2 by PCR NEGATIVE ()?? 01/06/2025 11:53 Parainfluenza 3 by PCR NEGATIVE ()?? 01/06/2025 11:53 Parainfluenza 4 by PCR NEGATIVE ()?? 01/06/2025 11:53 RSV by PCR NEGATIVE ()?? 01/06/2025 11:53 Bordetella Pertussis by PCR NEGATIVE ()?? 01/06/2025 11:53 Chlamydophila Pneumoniae by PCR NEGATIVE ()?? 01/06/2025 11:53 Mycoplasma Pneumoniae by PCR NEGATIVE ()?? 01/06/2025 11:53 COVID-19 (SARS-CoV-2) by PCR NEGATIVE ()?? 01/06/2025 11:53 Bordetella Parapertussis by PCR NEGATIVE ()?? 01/06/2025 11:53 ? Microbiology ?? Strep Pneumoniae Urinary Ag?? Completed?? Source: Urine Body Site: ?? Collected Dt/Tm: 01/07/2025 11:57 Last Updated Dt/Tm: 2025 17:10 ?? Legionella Antigen Urine?? Completed?? Source: Urine Body Site: ?? Collected Dt/Tm: 01/07/2025 11:57 Last Updated Dt/Tm: 2025 15:10 ?? Sputum Culture?? Completed?? Source: EXSPUT Body Site: ?? Collected Dt/Tm: 01/06/2025 15:45 Last Updated Dt/Tm: 01/08/2025 13:18 ?? Sputum, Gram Smear w/Culture Rfx?? Completed?? Source: Sputum Expectorated Body Site: ?? Collected Dt/Tm: 01/06/2025 15:41 Last Updated Dt/Tm: 01/07/2025 17:06 ? 45_ minutes spent on discharge * Kristel YOUSIF, Kathy: PERFORM Event Display: Patient Education/Instruction Authored Date: [id number] Inpatient Adult Discharge Instructions. [address] [address] Name: CASSIDY CARTWRIGHT : 1990?? Visit: 01/01/2025 19:09?? Current Date: 01/21/2025 12:43 ?? Account: [id number]?? Inpatient Adult Discharge Instructions We would like to thank you for allowing us to assist you with your healthcare needs. The following includes patient education materials and information regarding your injury/illness. Our entire staffstrives to provide an excellent experience for our patients and their families. PLEASE ENSURE YOU FOLLOW-UP PER THE INSTRUCTIONS BELOW! ?? YOUR OPINION IS IMPORTANT TO US! Please complete the survey you may receive by mail or email. Your feedback will be used to make improvements to the healthcare experiences of our patients and their families. Surveys are administered by [employer]. ?? If further treatment with your primary care physician or another doctor is recommended, it is important for you to keep the appointment. Call your primary care physician or return to the Emergency Department immediately if your condition worsens, fails to improve, or new symptoms develop. If you need to find a doctor, you can call [email or web address] for a referral at [phone] or toll free at [phone]) or log in to [email or web address].. ?? [facility], in keeping with [facility] guidance, no longer requires face masks for staff, patientsor visitors in most situations. Similiar to time spent indoors at other locations, there is the chance that you were exposed to repiratory viruses during your time with us (such as flu or COVID-19). If you develop symptoms concerning for a viral respiratory infection, please seek testing (and treatment if indicated) from your medical provider or home test kit. ?? You can view and manage your care through the patient portal or by using a health care jorge of your choosing. [employer] is a website that allows you to securely view your medical information including your hospital discharge summary, office visit summaries, medications and follow-up visits. You can also request appointments, renew medications, and request access to your medical information using a health care jorge of your choosing, or just ask a question. You are entitled to know the individuals who participated in your treatment. This information is available within your medical record and will be provided upon your request. You can enroll at [email or web address] or register d uring your next office visit. You have been discharged from [facility], Patient Care Unit: W3??. If you have any questions regarding these instructions, including results of studies pending, afteryou leave, please call us and we will be happy to assist you 24/04. [facility] Your Care Team Attending Physician Ted DO, Suchismita S?? Consulting Providers Ted DO, Suchismita S?? Discharging Providers Ted DO, Suchismita S Your Diagnosis Thrombotic microangiopathy Glaucoma, right eye Hyperglycemia HUS (hemolytic uremic syndrome), atypical Acute hypoxic respiratory failure Hospital-acquired pneumonia Acute hemodialysis patient Hypokalemia Primary hypertension YOHANA (acute kidney injury) GERD (gastroesophageal reflux disease) HTN (hypertension) Hypertensive emergency Insomnia Microangiopathic hemolytic anemia Mood disorder Pulmonary edema Sepsis Tests Performed Below is a partial list of the tests performed during your hospitalization. You may have had other tests and procedures not included in this list. Please discuss all test results with your provider. ABG ABG POC CARTRIDGE [id number] Activity Reflex Panel [id number] Reflex Comment AHUS Complement Panel aHUS Genetic Panel ALBUMIN Alk Phos ALT Apheresis: Therapeutic Plasmapheresis AST BASE EXCESS POC CARTRIDGE Basic Metabolic Panel Bilirubin Total Bilirubin Total + Direct BUN C Reactive Protein CALCIUM IONIZED POC CART Calcium Level CBC CBC w/ Differential CK,TOTAL ONLY COMPLEMENT C3 COMPLEMENT C4 Comprehensive Metabolic Panel Creatinine Culture Sputum w/ Gram Smear D Dimer Direct Marti Test Electrolytes Ferritin Fibrinogen Folate Level Glucose Level GLUCOSE POC GLUCOSE POC CARTRIDGE Haptoglobin HEMATOCRIT POC CARTRIDGE HEMOGLOBIN POC CARTRIDGE Hepatitis Panel Dial Hgb + Hct Hgb A1C (Monitoring) HOLD GEL TUBE HOLD GREEN TUBE HOLD URINE CULTURE INR Iron + Iron Binding Capacity K Level LACTIC ACID POC CART LDH Legionella Antigen Urine Magnesium Level Mg Level MRSA/MSSA PCR Nasal Swab O2 PERCENT (POINT OF CARE) PERIOD & VOLUME Peripheral Blood Smear Review PH CORRECTED IONIZED CALCIUM Phosphorus Level Potassium Level POTASSIUM POC CARTRIDGE Test Urine PROCALCITONIN Protein/Creatinine Ratio Urine PT (INR) PTT Respiratory Pathogen PCR with COVID-[address] SEDIMENTATION RATE,AUTOMATED SODIUM POC CARTRIDGE Sputum Culture Strep Pneumoniae Urinary Ag Total Protein Troponin T, High Sensitivity Type and Screen Urinalysis Complete Urine Creatinine 24 Hr Urine Protein/Creatinine Ratio?-- Results Pending -- Urine Urea Nitrogen [address] Chest W/O Contrast CXR Portable US Doppler Ext Upper Venous Left XR Chest 2 Views Frontal and Lat XR Chest Portable ABG (Lab) POC Cartridge (ABG POC CARTRIDGE)?? [id number] Activity Reflex Panel?? [id number] Reflex Comment?? AHUS Complement Panel?? ALT?? AST?? Add On Lab Order?? Albumin Level (ALBUMIN)?? Alk Phos?? BUN?? Base Excess (Lab) POC Cartridge (BASE EXCESS POC CARTRIDGE)?? Basic Metabolic Panel?? Bilirubin Total?? Bilirubin Total + Direct?? Blood Gas Arterial (ABG)?? C Reactive Protein?? C3 Complement (COMPLEMENT C3)?? C4 Complement (COMPLEMENT C4)?? CBC?? CBC w/ Differential?? COVID-19 (2019 Novel Coronavirus) PCR?? CPK Total Only (CK,TOTAL ONLY)?? CT Chest W/O Contrast?? Calcium Level?? Complete Urinalysis (Urinalysis Complete)?? Comprehensive Metabolic Panel?? Creatinine?? Creatinine Urine 24 Hr (Urine Creatinine 24 Hr)?? D Dimer?? Direct Antiglobulin Test (Direct Marti Test)?? Electrolytes?? FIO2 (Lab) POC Cartridge (O2 PERCENT (POINT OF CARE))?? Ferritin?? Fibrinogen?? Folate Level?? Glucose (Lab) POC Cartridge (GLUCOSE POC CARTRIDGE)?? Glucose Level?? Glucose POC?? HCG Urine ( Test Urine)?? Haptoglobin?? Hematocrit (Lab) POC Cartridge (HEMATOCRIT POC CARTRIDGE)?? Hemoglobin (Lab) POC Cartridge (HEMOGLOBIN POC CARTRIDGE)?? Hemoglobin A1C (Monitoring) (Hgb A1C (Monitoring))?? Hepatitis Panel Dial?? Hgb + Hct?? High??Sensitivity??Troponin T (Troponin T, High Sensitivity)?? Hold Gel Top Tube (HOLD GEL TUBE)?? Hold Green Top Tube (HOLD GREEN TUBE)?? Hold Urine Culture?? INR (PT (INR))?? Ionized Calcium (PH CORRECTED IONIZED CALCIUM)?? Ionized Calcium(POC) POC Cartridge (CALCIUM IONIZED POC CART)?? Iron + Iron Binding Capacity?? LDH?? Lactate (Lab) POC Cartridge (LACTIC ACID POC CART)?? Legionella Antigen Urine?? MRSA/MSSA PCR Nasal Swab?? Magnesium Level?? PTT?? Period and Volume (PERIOD & VOLUME)?? Peripheral Blood Smear Review?? Phosphorus Level?? Potassium (Lab) POC Cartridge (POTASSIUM POC CARTRIDGE)?? Potassium Level?? Procalcitonin Level (PROCALCITONIN)?? Protein/Creatinine Ratio Urine (Urine Protein/Creatinine Ratio)?? Respiratory Pathogen PCR with COVID-19?? Reticulocyte Ct?? Sedimentation Rate (SEDIMENTATION RATE,AUTOMATED)?? Sodium (Lab) POC Cartridge (SODIUM POC CARTRIDGE)?? Sputum Culture?? Sputum, Gram Smear w/Culture Rfx (Culture Sputum w/ Gram Smear)?? Strep Pneumoniae Urinary Ag?? Total Protein?? Transfuse RBCs?? Type and Screen?? US Doppler Ext Upper Venous Left?? Urea Nitrogen Urine 24 Hr (Urine Urea Nitrogen 24 Hr)?? Vitamin B12 Level?? Chest 2 Views Frontal and Lat (XR Chest 2 Views Frontal and Lat)?? Chest Portable (CXR Portable)?? aHUS Genetic Panel?? Primary Care Provider Fernandez Tyler MD? Advance Directive Health Care Proxy on File No Discharge Vitals Temperature: 98.4 DegF Height: 159 cm Pulse Rate: 84 bpm Weight: 96.55 kg Respiratory Rate: 18 br/min Body Mass Index:??39.32 kg/m2??Critical Systolic Blood Pressure:??147 mm Hg??High Body surface area: 2.1 Diastolic Blood Pressure: 82 mm Hg ?? Oxygen Saturation: 99 % ?? Studies Pending All studies ordered during this hospital stay have been completed unless listed below. Please discuss all pending results with your provider listed above in these instructions. ?? Add On Lab Order?? COVID-19 (2019 Novel Coronavirus) PCR?? Protein/Creatinine Ratio Urine (Urine Protein/Creatinine Ratio)?? Transfuse RBCs?? What to do next Instructions From Your Doctor ?? Orders? 01/21/25 12:16:00 EDT?? You Need to Schedule the Following Appointments Follow Up with??Demetris GARCIA, Lincoln Sy When:??Within 3-5 day: call to discuss follow up visit Follow Up with??Fernandez Tyler MD Where: [address] [place] [address]- Discharge Medications CASSIDY CARTWRIGHT :1990 Visit Date:01/01/2025 Medications: Please continue your medications until treatment is completed or stopped by your provider. Medications not listed below should be discontinued. Discuss any questions related to medications with your provider. What How Much When Instructions Next Dose New Azithromycin (azithromycin 500 mg oral tablet) 500 Milligram Oral Daily Duration: 7 Days Pickup at [place] [address] 01/22 AM Changed Docusate (docusate sodium 100 mg oral capsule) 1 capsule Oral Daily at Bedtime as needed for as needed for constipation NEEDED Changed Famotidine (famotidine 20 mg oral tablet) 20 Milligram Oral Daily Duration: 30 Days Pickup at [place] [address] 01/22 AM Changed Labetalol (labetalol 300 mg oral tablet) 1 tab(s) Oral 3 times a day Duration: 30 Days Pickup at [place] [address] 01/21 3PM Changed Melatonin (Melatonin 5 mg oral tablet) 1 tab(s) Oral Daily at Bedtime as needed for for insomnia NEEDE @ BEDTIME Changed NIFEdipine (NIFEdipine 60 mg oral tablet, extended release) 60 Milligram Oral Every 12 hours Duration: 30 Days Pickup at [place] [address] 01/21 9PM Changed Oxcarbazepine (OXcarbazepine 600 mg oral tablet) 1 tab(s) Oral Twice a day 01/21 9PM Changed Trazodone (traZODone 100 mg oral tablet) 3 tab(s) Oral Daily at Bedtime Duration: 30 Days Pickup at [place] [address] 01/21 9PM Unchanged Albuterol (Albuterol (Eqv-ProAir HFA) 90 mcg/ inh inhalation aerosol) 1 inhalation Inhalation Every 4 hours as needed for as needed for shortness of breath or wheezing NEEDED Unchanged Albuterol (albuterol 0.083% inhalation solution) 3 Milliliter Inhalation Every 6 hours as needed for Wheezing/Shortness of Breath ASNEEDED Unchanged Brimonidine Ophthalmic (brimonidine 0.2% ophthalmic solution) 1 Drops Topically Twice a day rt eye ?? 01/21 9PM Unchanged Clonidine (cloNIDine 0.1 mg oral tablet) 0.1 Milligram Oral Daily 01/22 AM Unchanged Dorzolamide-Timolol Ophthalmic (dorzolamide-timolol 2.23%-0.68% ophthalmic solution) 1 Drops Both eyes Twice a day 01/21 9PM Unchanged Hydrocortisone Topical (HydroCORTisone 1% Topical) 1 jorge Topically 3 times a day RESUME Unchanged Latanoprost Ophthalmic (latanoprost 0.005% ophthalmic solution) 1 Drops Right eye Daily at Bedtime 01/21 9PM Unchanged Loratadine (loratadine 10 mg oral tablet) 1 tab(s) Oral Daily 01/22 AM Unchanged Multivitamin (Daily Shellie oral tablet) 1 tab(s) Oral Daily 01/22 AM Unchanged Ocular Lubricant (Artificial Tears1.4%) 1 drop Both eyes Daily RESUME Unchanged Ondansetron (ondansetron 4 mg oral tablet, disintegrating) 1 tab(s) Oral Every 8 hours as needed for as needed for nausea/vomiting NEEDED Unchanged Sumatriptan (SUMAtriptan 50 mg oral tablet) 1 tab(s) Oral Daily as needed for for migraine headache may repeat dose after 2 hours up to a maximum of 2 ?? NEEDED Pharmacy Information [facility] [address]: [address] [place], [place] [id number] [phone] ?? What How Much When Comments Stop Taking Dexamethasone / Tobramycin Ophthalmic (Tobradex 0.1%-0.3% ointment) 0.5 Inch Left eye Daily at Bedtime Duration: 7 Days Stop Taking Fluoxetine (fluoxetine 20 mg oral tablet) 1 tab(s) Oral Twice a day Duration: 30 Days Stop Taking Methylphenidate (Concerta 36 mg oral tablet, extended release) 1 tab(s) Oral Daily Duration: 30 Days Stop Taking PredniSONE (predniSONE 20 mg oral tablet) See instructions 1 tablet By Mouth every other day ?? Prescription Given During Visit Azithromycin (azithromycin 500 mg oral tablet) - 500 mg, By Mouth, Daily, # 7 tablet, 0 Refills, [facility] [address] [address] [phone]?? Famotidine (famotidine 20 mg oral tablet) - 20 mg, By Mouth, Daily, # 30 tablet, 0 Refills, [facility] [address] [address] [phone]?? Labetalol (labetalol 300 mg oral tablet) - 1 tablet = 300 mg, By Mouth, 3 times a day, # 90 tablet,0 Refills, [facility] [address] [place] [phone]?? NIFEdipine (NIFEdipine 60 mg oral tablet, extended release) - 60 mg, By Mouth, Every 12 hours, # 60tablet, 0 Refills, [facility], [facility], [address] [place] [phone]?? Trazodone (traZODone 100 mg oral tablet) - 3 tablet = 300 mg, By Mouth, Daily at bedtime, # 90 tablet, 0 Refills, [facility], [facility], [address] [place] [address] [phone]?? Laboratory Results Below is a partial list of the most recent Laboratory test results done prior to this discharge. You may have had other tests and procedures not included in this list. Please discuss all test resultswith your provider. Est Creatinine Clearance - 8.16 mL/min (01/21/2025) FFP Available - RE (01/06/2025) FFP Unit ID - [id number] (01/06/2025) RBC Available - PT (01/03/2025) RBC Unit ID - [id number] (01/03/2025) ABG (01/07/2025) ???pH - 7.38???pCO2 - 43 mm Hg???pO2 - 79 mm Hg???Bicarbonate, Estimated - 25 mmol/L???Specimen Type - Blood Gas - ARTERIAL???Percent O2 (FIO2) - 50 ABG POC CARTRIDGE (01/07/2025) ???pH (POC) POC Cartridge - 7.36???pCO2 (POC) POC Cartridge - 45.4 mm Hg???pO2 (POC) POC Cartridge - 82 mm Hg???Estimated Bicarbonate (POC) POC Cart - 25.4 mmol/L???% O2 Sat Arterial (POC) POC Cartridge - 95 %???Specimen Type - Blood Gas - ARTERIAL [id number] Activity Reflex Panel (01/02/2025) ???[id number] Activity - 86.6 [id number] Reflex Comment (01/02/2025) ???ADAMTS 13 Ab Comment - Comment AHUS Complement Panel (01/02/2025) ???AHUS Complement Result - Reference lab report has been scanned into [facility] Clinical Notes, Patient aHUS Genetic Panel (01/02/2025) ???aHUS Genetic Testing - Reference lab report has been scanned into [facility] Clinical Notes, Patient ALBUMIN (01/08/2025) ???Albumin - 2.4 Gm/dL Alk Phos (01/06/2025) ???Alkaline Phosphatase - 68 units/L ALT (01/06/2025) ???ALT (SGPT) - 27 units/L Apheresis: Therapeutic Plasmapheresis (01/05/2025) ???TA Total Volume Removed - 4067 mL AST (01/06/2025) ???AST (SGOT) - 19 units/L BASE EXCESS POC CARTRIDGE (01/07/2025) ???Base Excess (POC) POC Cartridge - 0 Basic Metabolic Panel (01/20/2025) ???Sodium - 136 mmol/L???Potassium - 4.1 mmol/L???Chloride - 100 mmol/L???Bicarbonate Level - 21 mmol/L???Anion Gap - 15 mmol/L???Glucose Level - 94 mg/dL???BUN - 78 mg/dL???Creatinine-Blood - 8.35 mg/dL???Estimated GFR Creatinine - 6 ML/MIN/1.73 M2???Calcium - 9.0 mg/dL Bilirubin Total (01/06/2025) ???Bilirubin, Total - 0.3 mg/dL Bilirubin Total + Direct (01/11/2025) ???Bilirubin, Total - 0.2 mg/dL???Bilirubin, Direct - 0.1 mg/dL???Bilirubin, Indirect - 0.1 mg/dL BUN (01/21/2025) ???BUN - 72 mg/dL C Reactive Protein (01/04/2025) ???C-Reactive Protein - 0.4 mg/dL CALCIUM IONIZED POC CART (01/07/2025) ???Ionized Calcium (POC) POC Cartridge - 1.16 mmol/L Calcium Level (01/06/2025) ???Calcium - 8.5 mg/dL CBC (01/16/2025) ???WBC - 6.2 k/mm3???RBC - 2.57 m/mm3???Hgb - 7.5 Gm/dL???Hct - 21.5 %???MCV - 83.7 femtoliters???MCH - 29.2 pg???MCHC - 34.9 Gm/dL???Platelet Count - 179 k/mm3???RDW-SD - 42.5 femtoliters???MPV - 10.6 femtoliters???Nucleated RBC (Automated) - 0.0 #/100 WBC'S???Abs. NRBC - 0.0 k/mm3 CBC w/ Differential (01/21/2025) ???WBC - 6.3 k/mm3???RBC - 2.79 m/mm3???Hgb - 8.1 Gm/dL???Hct - 23.8 %???MCV - 85.3 femtoliters???MCH - 29.0 pg???MCHC - 34.0 Gm/dL???Platelet Count - 168 k/mm3???RDW-SD - 41.3 femtoliters???MPV - 11.0 femtoliters???Nucleated RBC (Automated) - 0.0 #/100 WBC'S???Abs. NRBC - 0.0 k/mm3???Abs. Neut - 4.6 k/mm3???Abs. Lymph - 1.1 k/mm3???Abs. King[place] - 0.4 k/mm3???Abs. Eo - 0.2 k/mm3???Abs. Baso - 0.1 k/mm3???Neut % - 72.1 %???Lymph % - 17.1 %???Kingfisher % - 6.3 %???Eos % - 3.3 %???Baso % - 0.9 %???Imm Gran - 0.3 %???Abs. Imm Gran - 0.0 k/mm3 CK,TOTAL ONLY (01/07/2025) ???CK, Total - 432 units/L COMPLEMENT C3 (01/13/2025) ???Complement C3 - 116 mg/dL COMPLEMENT C4 (01/13/2025) ???Complement C4 - 30 mg/dL Comprehensive Metabolic Panel (01/02/2025) ???Sodium - 137 mmol/L???Potassium - 3.4 mmol/L???Chloride - 105 mmol/L???Bicarbonate Level - 15 mmol/L???Anion Gap - 17 mmol/L???Glucose Level - 94 mg/dL???BUN - 85 mg/dL???Creatinine-Blood - 7.70 mg/dL???Estimated GFR Creatinine - 7 ML/MIN/1.73 M2???Calcium - 8.2 mg/dL???Protein, Total - 5.5 Gm/dL ???Albumin - 3.4 Gm/dL???AG Ratio - 1.6???Alkaline Phosphatase - 73 units/L???AST (SGOT) - 20 units/L???ALT (SGPT) - 13 units/L???Bilirubin, Total - 0.5 mg/dL Creatinine (01/21/2025) ???Creatinine-Blood - 7.97 mg/dL???Estimated GFR Creatinine - 6 ML/MIN/1.73 M2 Culture Sputum w/ Gram Smear (01/06/2025) ???Sputum Culture Specimen Source - EXPECTORATED SPUTUM???Sputum Cult Epithelial Cells - None seen???Gram Stain Evaluation - Comment???Sputum Gram Stain Result 1 - Comment???Sputum Gram Stain Result 2 - Comment???Sputum Gram Stain Result 3 - Comment???White Blood Cells - None seen D Dimer (01/02/2025) ???D-Dimer - 4.36 mg/L FEU Direct Marti Test (01/02/2025) ???Direct Antiglobulin Test, Anti-IgG - Anti-IgG : Negative???Direct Antiglobulin Test, Anti-C3b,-C3d - Anti-C3d : Negative Electrolytes (01/21/2025) ???Sodium - 138 mmol/L???Potassium - 4.2 mmol/L???Chloride - 101 mmol/L???Bicarbonate Level - 21 mmol/L???Anion Gap - 16 mmol/L Ferritin (01/10/2025) ???Ferritin Level - 458 ng/mL Fibrinogen (01/06/2025) ???Fibrinogen - 245 mg/dL Folate Level (01/10/2025) ???Folic Acid Level - 3.8 ng/mL Glucose Level (01/06/2025) ???Glucose Level - 116 mg/dL GLUCOSE POC (01/19/2025) ???Glucose, POC - 86 mg/dL GLUCOSE POC CARTRIDGE (01/07/2025) ???Glucose (POC) POC Cartridge - 93 Haptoglobin (01/20/2025) ???Haptoglobin - 74 mg/dL HEMATOCRIT POC CARTRIDGE (01/07/2025) ???Hematocrit (POC) POC Cartridge - 30 % HEMOGLOBIN POC CARTRIDGE (01/07/2025) ???Hemoglobin (POC) POC Cartridge - 10.2 Gm/dL Hepatitis Panel Dial (01/07/2025) ???Hepatitis B Surface Antigen - NON REACTIVE???Hepatitis C Ab - NON REACTIVE???Anti-HBS Quant - 190.00 mIU/mL Hgb + Hct (01/18/2025) ???Hgb - 7.6 Gm/dL???Hct - 22.5 % Hgb A1C (Monitoring) (01/11/2025) ???Hemoglobin A1C (Monitoring) - 4.8 % HOLD GEL TUBE (01/03/2025) ???Hold Gel Top - SPECIMEN DISCARDED AFTER 1 WEEK HOLD GREEN TUBE (01/06/2025) ???Hold Green Top - SPECIMEN DISCARDED AFTER 1 WEEK HOLD URINE CULTURE (01/02/2025) ???Hold Urine Culture - Testing available 48 hours from time of collection. INR (01/02/2025) ???INR - 1.1???Protime (PT) - 11.3 seconds Iron + Iron Binding Capacity (01/10/2025) ???Iron Level - 114 mcg/dL???Iron Binding Capacity, Unsaturated - 94 mcg/dL???Iron Binding Capacity, Estimated Total - 208 mcg/dL???% Iron Saturation - 55 % K Level (01/04/2025) ???Potassium - 3.2 mmol/L LACTIC ACID POC CART (01/06/2025) ???Lactate, (POC) POC Cartridge - 0.9 mmol/L LDH (01/20/2025) ???LDH - 398 units/L Legionella Antigen Urine (01/07/2025) ???Legionella pneumophila Antigen - NEGATIVE Magnesium Level (01/16/2025) ???Magnesium - 2.2 mg/dL Mg Level (01/10/2025) ???Magnesium - 2.4 mg/dL MRSA/MSSA PCR Nasal Swab (01/06/2025) ???MRSA PCR Result - Negative, MRSA target DNA not detected.???S Aureus PCR Result - Positive, SA target DNA detected. O2 PERCENT (POINT OF CARE) (01/07/2025) ???FIO2 (POC) POC Cartridge - 50 % PERIOD & VOLUME (01/19/2025) ???Collection Period, Urine - 24 hrs???Volume, Urine - 1700 mLs Peripheral Blood Smear Review (01/02/2025) ???Peripheral Blood Smear Review Interp. - Reviewed by pathologist. PH CORRECTED IONIZED CALCIUM (01/06/2025) ???Calcium, Ionized pH Corrected - 1.16 mmol/L Phosphorus Level (01/16/2025) ???Phosphorus - 7.5 mg/dL Potassium Level (01/05/2025) ???Potassium - 4.1 mmol/L POTASSIUM POC CARTRIDGE (01/07/2025) ???Potassium (POC) POC Cartridge - 4.5 mmol/L Test Urine (01/02/2025) ???Urine, - NEGATIVE PROCALCITONIN (01/07/2025) ???Procalcitonin - 0.50 ng/mL Protein/Creatinine Ratio Urine (01/02/2025) ???Protein, Total Urine Random - 111 mg/dL???TP/Cr Ratio - 1.68???Creatinine, Urine - 65.9 mg/dL PT (INR) (01/06/2025) ???INR - 1.0???Protime (PT) - 10.7 seconds PTT (01/06/2025) ? ?APTT - <22.0 seconds Respiratory Pathogen PCR with COVID-19 (01/06/2025) ???Adenovirus by PCR - NEGATIVE???Coronavirus 229E by PCR (not COVID-19) - NEGATIVE???Coronavirus HKU1 by PCR (not COVID-19) - NEGATIVE???Coronavirus NL63 by PCR (not COVID-19) - NEGATIVE???Coronavirus OC43 by PCR (not COVID-19) - NEGATIVE???Human Metapneumovirus by PCR - NEGATIVE???Rhinovirus/Enterovirus by PCR - NEGATIVE???Influenza A by PCR - NEGATIVE???Influenza B by PCR - NEGATIVE???Parainfluenza 1 by PCR - NEGATIVE???Parainfluenza 2 by PCR - NEGATIVE???Parainfluenza 3 by PCR - NEGATIVE???Parainfluenza 4 by PCR - NEGATIVE???RSV by PCR - NEGATIVE???Bordetella Pertussis by PCR - NEGATIVE??? Chlamydophila Pneumoniae by PCR - NEGATIVE???Mycoplasma Pneumoniae by PCR - NEGATIVE???COVID-19 (SARS-CoV-2) by PCR - NEGATIVE???Bordetella Parapertussis by PCR - NEGATIVE Reticulocyte Ct (01/20/2025) ???Retic Count - 1.6 %???Retic Count Corrected - 0.8 %???Retic Production Index - 0.4 % SEDIMENTATION RATE,AUTOMATED (01/02/2025) ???Sed Rate - 2 mm/hr SODIUM POC CARTRIDGE (01/07/2025) ???Sodium (POC) POC Cartridge - 136 mmol/L Sputum Culture (01/06/2025) ???Sputum Culture Isolate 1 - Comment???Sputum Culture Status - Final report Strep Pneumoniae Urinary Ag (01/07/2025) ???S. Pneumococcus Urinary Ag - NEGATIVE???Body Fld Cult - Not indicated.???Note Bact Ag Cult - Comment???Spec Source S pneumo - Urine???Org ID S pneumo - Not indicated. Total Protein (01/06/2025) ???Protein, Total - 6.4 Gm/dL Troponin T, High Sensitivity (01/01/2025) ???High Sensitivity Troponin (HSTnT) - 150 ng/L Type and Screen (2025) ???Blood Type - A Positive???Antibody Screen - Negative Urinalysis Complete (01/02/2025) ???Appear/Color, Urine - LIGHT YELLOW???Specific [place], Urine - 1.012???pH, Urine - 7.0???Albumin, Urine - 2+???Glucose, Urine - TRACE???Ketones, Urine - NEGATIVE???Bilirubin, Urine - NEGATIVE???Hemoglobin, Urine - 1+???Nitrite, Urine - NEGATIVE???Leukocyte, Urine - 1+???Urobilinogen - NORMAL???WBC's, Urine - 16 /HPF???RBC's, Urine - 3 /HPF???Bacteria - SLIGHT???Squamous Epith - 15 /HPF???Amorphous Crystals - MODERATE Urine Creatinine 24 Hr (01/19/2025) ???Creatinine, Urine 24HR - 1.1 Gm/24hr???Creatinine, Urine Random - 64.7 mg/dL Urine Urea Nitrogen 24 Hr (01/19/2025) ???Urea Nitrogen, Urine 24HR - 6.6 Gm/24hr???Urea Nitrogen, Urine Random - 390.5 mg/dL Vitamin B12 Level (01/10/2025) ???Vitamin B12 Level - 494 pg/mL You will be contacted within 72 hours with your results. Immunizations This Visit Given Vaccine Date Meningococcal Conjugate Vaccine 01/03/2025 meningococcal group B vaccine 01/03/2025 Allergies (NKA means No Known Allergies) Shellfish amoxicillin ampicillin penicillins Problems Active Problems??(7) Blind left eye?? GERD (gastroesophageal reflux disease)?? Glaucoma, right eye?? HTN (hypertension)?? Mood disorder?? Obese class II?? Prosthetic eye globe?? Education Materials Below is the list of Educational Leaflet Providered with your Discharge Instructions. WebMD Ignite Patient Education - Azithromycin?? WebMD Ignite Patient Education - Discharge Instructions for Acute Kidney Injury?? Valuables and Belongings I fully understand and agree that [facility] accepts no responsibility for all my personal property including clothing, toilet articles, radios, jewelry, dentures, hearing aids, rings, money, or any other property that is in my possession or is brought to me after admission. I understand certain valuables may be placed in a hospital safe for a short period of time. I understand that the hospital is not liable for loss or damage due to accident, fire, or other natural occurrence while said property is in the safe. I accept full responsibility for any personal property that I keep with me, and will not hold the hospital responsible in case of loss or disappearance. I acknowledge that i have been encouraged to send valuables and belongings home. ?? Review of Valuable and Belonging List: With patient Date for Pt to Sign Valuables/Belongings: 01/09/25 12:54:00 ?? Other Discharge Information ? Pulmonary Rehab Status?? Pulmonary Rehab Discharge Status?? CPAP/BiPAP Mask Type: Full CPAP/BiPAP Mask Size: Medium Respiratory Rate: 18 br/min ? Common Emergency Awareness Tips IS IT A STROKE? Act FAST and Check for these signs: FACE Does the face look uneven? ARM Does one arm drift down? SPEECH Does their speech sound strange? TIME Call at any sign of stroke ?? Heart Attack Signs Chest discomfort: Most heart attacks involve discomfort in the center of the chest and lasts more than a few minutes, or goes away and comes back. It can feel like uncomfortable pressure, squeezing, fullness or pain. Discomfort in upper body: Symptoms can include pain or discomfort in one or both arms, back, neck, jaw or stomach. Shortness of breath: With or without discomfort. Other signs: Breaking out in a cold sweat, nausea, or lightheaded. Remember, MINUTES DO MATTER. If you experience any of these heart attack warning signs, call to get immediate medical attention! ?? Smoking can increase your chances of developing chronic health problems and can cause harmful effects to other family members in your house. If you smoke, you are strongly encouraged to quit. Please call [facility] at [phone] or [phone] [facility] ([phone]) or log in to [email or web address] for referrals to smoking cessation programs. ?? 277 Suicide & Crisis Lifeline is available 24/04 if you or someone you know needs to find a reason to keep living. By calling 607 you'll be connected to a skilled, trained counselor at a crisis center in your area. INPATIENT DISCHARGE INSTRUCTIONS SIGNATURE PAGE NAOMY CARTWRIGHTHESKA Location:[facility] Registration Date and Time:01/01/2025 19:09 EDT Primary Care Physician: Jayson GARCIA, Fernandez Sahu, Attending Physician: Mac Jean DO, I CASSIDY CARTWRIGHT, have received the above patient education materials/instructions and have verbalized understanding. If ambulance or transport services are being used I further acknowledge being given a choice of service. ?? If you need to contact me, please call me at this number: . Patient/Box Press Operator Name: Patient/Box Press Operator Signature: Relationship to Patient: Witness Name/Signature: Date: * Kathy Humphries RN: PERFORM Event Display: Patient Education Leaflets Authored Date: [id number] Azithromycin ?? [id number] Azithromycin Brand Name(s): Zithromax??, Zithromax?? Single Dose Packets, Zithromax?? Tri- Paks??, Zithromax?? Z-Paks??, Zmax??; also available generically ?? WHY is this medicine prescribed? Azithromycin is used to treat certain bacterial infections, such as bronchitis; pneumonia; sexuallytransmitted diseases (STD); and infections of the ears, lungs, sinuses, skin, throat, and reproductive organs. Azithromycin also is used to treat or prevent disseminated Mycobacterium avium complex (MAC) infection [a type of lung infection that often affects people with human immunodeficiency virus(HIV)]. Azithromycin is in a class of medications called macrolide antibiotics. It works by stopping the growth of bacteria. Antibiotics such as azithromycin will not work for colds, flu, or other viral infections. Using antibiotics when they are not needed increases your risk of getting an infection later that resists antibiotic treatment. HOW should this medicine be used? Azithromycin comes as a tablet, an extended-release (long-acting) suspension (liquid), and a suspension (liquid) to take by mouth. The tablets and suspension (Zithromax) are usually taken with or without food once a day for 1-5 days. When used for the prevention of disseminated MAC infection, azithromycin tablets are usually taken with or without food once weekly. The extended-release suspension (Zmax) is usually taken on an empty stomach (at least 1 hour before or 2 hours after a meal) as a one-time dose. To help you remember to take azithromycin, take it around the same time every day. Follow the directions on your prescription label carefully, and ask your doctor or pharmacist to explainany part you do not understand. Take azithromycin exactly as directed. Do not take more or less of it or take it more often than prescribed by your doctor. Shake the liquid well before each use to mix the medication evenly. Use a dosing spoon, oral syringe, or measuring cup to measure the correct amount of medication. Rinse the measuring device with water after taking the full dose of medication. If you receive azithromycin powder for suspension (Zithromax) in the single- dose, 1-gram packet, you must first mix it with water before you take the medication. Mix the contents of the 1-gram packetwith 1/4 cup (60 mL) of water in a glass and consume the entire contents immediately. Add an additional 1/4 cup (60 mL) of water to the same glass, mix, and consume the entire contents to ensure thatyou receive the entire dose. If you receive azithromycin extended-release suspension (Zmax) as a dry powder, you must first add water to the bottle before you take the medication. Open the bottle by pressing down on the cap and twisting. Measure 1/4 cup (60 mL) of water, and add to the bottle. Close the bottle tightly, and shake well to mix. Use the azithromycin extended-release suspension within 12 hours of receiving it from the pharmacy or after adding water to the powder. If you vomit within an hour after taking azithromycin, call your doctor right away. Your doctor will tell you if you need to take another dose. Do not take another dose unless your doctor tells you to do so. You should begin to feel better during the first few days of treatment with azithromycin. If your symptoms do not improve, or get worse, call your doctor. Take azithromycin until you finish the prescription, even if you feel better. Do not stop taking azithromycin unless you experience the severe side effects described in the SIDE EFFECTS section. If you stop taking azithromycin too soon or skip doses, your infection may not be completely treated andthe bacteria may become resistant to antibiotics. Ask your pharmacist or doctor for a copy of the resource development manager's information for the patient. Are there OTHER USES for this medicine? Azithromycin is also used sometimes to treat H. pylori infection, travelers' diarrhea, and other gastrointestinal infections; Legionnaires' disease (a type of lung infection); pertussis (whooping cough; a serious infection that can cause severe coughing); Lyme disease (an infection that may developafter a person is bitten by a tick); and babesiosis (an infectious disease carried by ticks). It isalso used to prevent heart infection in people having dental or other procedures, and to prevent STD in victims of sexual assault. Talk to your doctor about the possible risks of using this medication for your condition. This medication may be prescribed for other uses; ask your doctor or pharmacist for more information. What SPECIAL PRECAUTIONS should I follow? Before taking azithromycin, ??? tell your doctor and pharmacist if you are allergic to azithromycin, clarithromycin (Biaxin, inPrevpac), dirithromycin (not available in the [place] erythromycin (E.E.S., ERYC, Erythrocin), telithromycin (Ketek; not available in the [place].), any other medications, or any of the ingredients in azithromycin tablets or suspension (liquid). Ask your pharmacist for a list of the ingredients. ??? tell your doctor and pharmacist what other prescription and nonprescription medications, vitamins, nutritional supplements, and herbal products you are taking or plan to take while taking azithromycin. Your doctor may need to change the doses of your medications or monitor you carefully for side effects. ??? if you are taking antacids containing aluminum hydroxide or magnesium hydroxide (Maalox, Mylanta, Tums, others), you will need to allow some time to pass between when you take a dose of these antacids and when you take a dose of azithromycin tablets or liquid. Ask your doctor or pharmacist how many hours before or after you take azithromycin you may take these medications. The extended-release suspension may be taken at any time with antacids. ??? tell your doctor if you have ever had jaundice (yellowing of the skin or eyes) or other liver problems while taking azithromycin. Your doctorwill probably tell you not to take azithromycin. ??? tell your doctor if you or anyone in your family has or has ever had a prolonged QT interval (a rare heart problem that may cause irregular heartbeat, fainting, or sudden ) or a fast, slow, or irregular heartbeat, and if you have low levels of magnesium or potassium in your blood; if you have a blood infection; heart failure or other heartproblems; cystic fibrosis; myasthenia gravis (a condition of muscles and the nerves that control them); or if you have kidney or liver disease. ??? tell your doctor if you are , plan to become , or are . If you become while taking azithromycin, call your doctor. What SPECIAL DIETARY instructions should I follow? Unless your doctor tells you otherwise, continue your normal diet. What should I do IF I FORGET to take a dose? Take the missed dose as soon as you remember it. However, if it is almost time for the next dose, skip the missed dose and continue your regular dosing schedule. Do not take a double dose to make up for a missed one. What SIDE EFFECTS can this medicine cause? Some side effects can be serious. If you experience any of these symptoms, stop taking azithromycinand call your doctor immediately or get emergency medical treatment: ??? fast, pounding, or irregular heartbeat ??? dizziness ??? fainting ??? rash with or without a fever ??? blisters or peeling ??? fever and pus-filled, blister-like sores, redness, and swelling of the skin ??? hives ??? itching ??? wheezing or difficulty breathing or swallowing ??? swelling of theface, throat, tongue, lips, eyes, hands, feet, ankles, or lower legs ??? hoarseness ??? vomiting orirritability while feeding (in infants less than 6 weeks old) ??? severe diarrhea (watery or bloodystools) that may occur with or without fever and stomach cramps (may occur up to 2 months or more after your treatment) ??? yellowing of the skin or eyes ??? extreme tiredness ??? unusual bleeding or bruising ??? lack of energy ??? loss of appetite ??? pain in the upper right part of the stomach ??? flu-like symptoms ??? dark-colored urine ??? unusual muscle weakness or difficulty with muscle control ??? pink and swollen eyes Azithromycin may cause other side effects. Call your doctor if you have any unusual problems while taking this medication. If you experience a serious side effect, you or your doctor may send a report to the Food and Drug Administration's (FDA) MedWatch Adverse Event Reporting program online (https://www.fda.gov/Safety/MedWatch) or by phone ( ). What should I know about STORAGE and DISPOSAL of this medication? Keep this medication in the container it came in, tightly closed, and out of reach of children. Store azithromycin tablets, suspension, and extended-release suspension at room temperature and away from excess heat and moisture (not in the bathroom). Do not refrigerate or freeze the extended-releasesuspension. Discard any azithromycin suspension that is left over after 10 days or no longer needed. Discard any unused extended-release azithromycin suspension after dosing is complete or 12 hours after preparation. Unneeded medications should be disposed of in special ways to ensure that pets, children, and otherpeople cannot consume them. However, you should not flush this medication down the toilet. Instead,the best way to dispose of your medication is through a medicine take-back program. Talk to your pharmacist or contact your local garbage/recycling department to learn about take-back programs in your community. See the FDA's Safe Disposal of Medicines website (https://goo.gl/c4Rm4p) for more information if you do not have access to a take-back program. It is important to keep all medication out of sight and reach of children as many containers (such as weekly pill minders and those for eye drops, creams, patches, and inhalers) are not child-resistant and young children can open them easily. To protect young children from poisoning, always lock safety caps and immediately place the medication in a safe location ??? one that is up and away and out of their sight and reach. https://www.[email or web address] What should I do in case of OVERDOSE? In case of overdose, call the poison control helpline at . Information is also available online at https://www.poisonhelp.org/help. If the victim has collapsed, had a seizure, has trouble breathing, or can't be awakened, immediately call emergency services at 911. What OTHER INFORMATION should I know? Keep all appointments with your doctor and the laboratory. Your doctor may order certain lab tests to check your body's response to azithromycin. Do not let anyone else take your medication. Your prescription is probably not refillable. If you still have symptoms of infection after you finish the azithromycin, call your doctor. It is important for you to keep a written list of all of the prescription and nonprescription (atxr-apn-eagsqkz) medicines you are taking, as well as any products such as vitamins, minerals, or otherdietary supplements. You should bring this list with you each time you visit a doctor or if you areadmitted to a hospital. It is also important information to carry with you in case of emergencies. This report on medications is for your information only, and is not considered individual patient advice. Because of the changing nature of drug information, please consult your physician or pharmacist about specific clinical use. The [employer] [employer] represents that the information provided hereunder was formulated with a reasonable standard of care, and in conformity with professional standards in the field. The [employer] [employer] makes no representations or warranties, express or implied, including, but not limited to, any implied warranty of merchantability and/or fitness for a particular purpose, with respect to such information and specifically disclaims all such warranties. Users are advised that decisions regarding drug therapy are complex medical decisions requiring the independent, informed decision of an appropriate health healthcare management consultant, and the information is provided for informational purposes only. The entire monograph for a drug should be reviewed for a thorough understanding of the drug's actions, uses and side effects. The [employer] does not endorse or recommend the use of any drug.The information is not a substitute for medical care. AHFS?? Patient Medication Information???. ?? Copyright, 2023. The [employer]??, [address], [address], [place], [place]. All Rights Reserved. Duplication for commercial use must be authorized by [facility]. Selected Revisions: October 16, 2023. AHFS?? Patient Medication Information???. ?? Copyright, 2024 ?? * Kathy Humphries RN: PERFORM Event Display: Patient Education Leaflets Authored Date: [id number] Discharge Instructions for Acute Kidney Injury ?? 87038 Discharge Instructions for Acute Kidney Injury You have been diagnosed with acute kidney injury. This means that you have had a sudden episode of kidney failure or damage that causes your kidneys not to work correctly. When both kidneys are healthy, they help filter out fluid and waste from the blood and body.??Acute kidney injury has many causes. These include urinary blockages, infection, lack of enough blood supply, and medicines that can injure??kidneys. In some cases, acute kidney injury is short-term (temporary). This type lasts several days to a few months. This is because the kidney can repair itself. Acute kidney injury can also result in chronic kidney disease or end stage renal failure. Here are some directions for you to follow as you recover. Home care ??? Follow any directions for eating and drinking given to you by your healthcare provider. o Drink less fluid, if directed by your healthcare provider. o Keep a record of everything you eat and drink. ??? Measure the amount of urine and stool you have each day. ??? Weigh yourself every day, at the same time of day, and in the same kind of clothes. Keep a daily record of your daily weights. ??? Take your temperature every day. Keep a record of the results. ??? Learn to take your own blood pressure (BP). Your healthcare provider can teach you how to correctly measure your BP. Keep a record of your results. Bring the record to your follow-up appointments. Ask your healthcare provider when you should seek emergency medical attention. Your provider will tell you what blood pressure reading is dangerous. ??? Stay away from people who have infections. This includes people with colds, bronchitis, or skin conditions. ??? Practice good personal??hygiene. Wash your hands often. This is especially important if you have a catheter in place when you leave the hospital. Doing so helps keep you safe from infection. ??? Take your medicines exactly as directed. ??? You may need frequent blood and urine tests. These are done to keep track of your kidney function. ?? Follow-up care Follow up with your healthcare provider, or as advised. ?? When to call your healthcare provider Call your??healthcare provider??right away if any of the following occur: ??? Signs of bladder infection, such as urinating more often, burning or pain when you pee, pain above your pubic bone, bloodin your urine, or trouble starting your urine stream ??? Signs of infection around your catheter, such as redness, swelling, warmth, or fluid leaking ??? Rapid weight loss or weight gain, such as 3??pounds or more in 24 hours or 6 pounds or more in 7 days ??? Fever above 100.4?? F ( 38??C ) or as directed by your healthcare provider ??? Chills ??? Muscle aches ??? Night sweats ??? Very little or no urine output ??? Swelling of your hands, legs, or feet ??? Back pain ??? Abdominal (belly) pain ??? Extreme tiredness ?? Last Reviewed Date: 2022 00:00:00 ?? [id number] [employer]. All rights reserved. This information is not intended as a substitute for professional medical care. Always follow your healthcare professional's instructions. ?? * Earle Treviño MD: PERFORM Event Display: Procedures Invasive Line Authored Date: [id number] Vascular Access Insertion Entered On: 01/02/2025 15:29 EDT Performed On: 01/02/2025 15:27 EDT by Earle Treviño MD Vascular Access Insertion Date of Vascular Access Insertion : 01/02/2025 EDT Procedure Location Vascular Access : Dialysis Suite Person recording insertion : Hot Metal Mixer Operator Hot Metal Mixer Operator of Vascular Access : Earle Treviño MD Occupation of Vascular Access Hot Metal Mixer Operator : Fellow Was wood processing worker a member of PICC/IV Team : No Earle Treviño MD - 01/02/2025 15:27 EDT Procedural Comments Risk Factors and Labs Reviewed : Yes Anticoagulation Therapy : Yes Antiplatelet Therapy : Yes Earle Treviño MD 01/02/2025 15:27 EDT Was vascular access order placed : No Vascular Access Type : Central line Time Out Performed : Yes Time Out Data : Patient identified, Site verified, Procedure verified, Consent signed, RN attendance Reason for Vascular Access Insertion : Plasmapheresis Suspected Vascular Access Infection : Yes, the access placed was exchanged over a guide wire Vascular Access Procedure Check : Consent obtained Hand Hygiene prior to insertion : Yes Maximal sterile barriers used : Mask, Sterile gown, Large sterile full body drape, Sterile gloves, Ultrasound sterile cover, Cap Sterile Field Maintained : Yes Skin Preparation : Chlorhexidine (CHG) Skin Prep dry at first skin puncture : Yes Antimicrobial coated catheter used : Yes Successful central line placement : Yes Vascular Access Catheter Type : Dialysis non-tunneled Vascular Access Insertion Site : Femoral Vascular Access Insertion Side : Right Vascular Access Catheter Size : 12 Vascular Access Catheter Length : 20 Tip location termination site : Iliac veins Vessel Identified By : Ultrasound Vascular Access Insertion Circumstance : Non-emergent Vascular Access Catheter Securement : Suture CXR Comment : n/a Vascular Access Dressing : Chlorhexidine Follow-up CXR : Not applicable Earle Treviño MD 01/02/2025 15:27 EDT DCP GENERIC CODE Suture needles : 1 Birch Tree : 1 Scalpels : 1 Clamps : 1 Guide Wires : 1 Earle Treviño MD 01/02/2025 15:27 EDT Complications during Insertion : None Tolerated CLIP procedure well : Yes Insertion Attempts : 1 Vascular Access Device QA : n/a Earle Treviño MD 01/02/2025 15:27 EDT Consult note * Carrol Johnson MD: PERFORM Event Display: Consult Authored Date: [id number] 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 Age:??34 Years?Sex:??Female?:??1990?? Reason for Consultation YOHANA w concern for TMA History of Present Illness 34 y/o woman w PMHx of??Congenital Varicella Syndrome,??GERD,??mood disorders,??mild intellectual disability,??hypertension,??recent kidney dysfunction.?? Patient initially presented to [facility] ED??due to worsening nausea,??vomiting, diarrhea.?Noted to have a creatinine of 6.5, LDH of 1183,??platelet??62,??haptoglobin less than 8.?Blood pressure was notably high??SBP in the 200s. ??Received IV??antihypertensives. ??Patient was then transferred to [facility]due to concern of TMAfor??plasmapheresis and possible??kidney biopsy. ?? Patient had been following with flakeboard line tender Dr. Caceres??in his office??initially for uncontrolledhypertension.?? Then noted to have a rising creatinine??from baseline.?? Serologic workup was done at that time??which was unremarkable: Hepatitis negative, HIV negative, PLA2R antibody negative, IgG, IgM, IgA are normal,??anti-WI-3 negative, myeloperoxidase negative, double-stranded DNA negative,??C3-C4 normal,??anti-GBM negative, scleroderma negative.??Doppler ultrasound was negative for renal artery stenosis ?? She has no signs or symptoms suggestive of malignancy including noticing abnormal weight loss, night sweats, severe back pain, pulmonary symptoms.?? She denies any recent new medications or drugs,states she has been adherent with her medications. Review of Systems Const:??Admits??fatigue, no fever, no chills HEENT: no dizziness, no headaches, no vision changes Resp: no SOB, no wheezing, no cough CV: no chest pain, no palpitations, no edema, no orthopnea, no syncope GI:??Admits nausea,??abdominal discomfort, diarrhea :??Admits decreased urination, no dysuria, no hematuria MSK: no myalgias, no DROM, no back pain Neuro: no paresthesias, no focal weakness?? Skin: no rashes Heme: No easy bruising, no bleeding or clotting tendency ?? 07/11 systems were reviewed and were negative for any positive or negative complaint, except as mentioned abov Physical Exam Vitals & Measurements T:??98.4?F?? TMIN:??97.7?F?? TMAX:??98.4?F?? HR:??78??(Peripheral)?? RR:??20?? BP:??126/91?? SpO2:??100%?? WT:??99.4??kg?? Physical exam GENERAL AOX3, NAD HEENT??left facial scar, left prosthetic eye?? CARDIO RRR RESP CTAx2 ABD +BS, S+D MSK/SKIN/EXT No??edema, left slightly larger than right? No roach HEMODIALYSIS ACCESS No access Assessment/Plan ASSESMENT: 34 y/o woman w PMHx of??Congenital Varicella Syndrome,??GERD,??mood disorders,??mild intellectual disability,??hypertension,??recent kidney dysfunction.?? Patient initially presented to [facility] ED??due to worsening nausea,??vomiting, diarrhea.?Noted to have a creatinine of 6.5, LDH of 1183,??platelet??62,??haptoglobin less than 8.?Blood pressure was notably high??SBP in the 200s. ??Received IV??antihypertensives. ??Patient was then transferred to [facility]??due to concern of TMAfor??plasmapheresis and possible??kidney biopsy. ?? 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 History of recent increase in creatinine over thepast month.?? Uncontrolled hypertension.?? Now with thrombocytopenia, hemolysis and severe YOHANA.?? All of which are pointing towards TMA.?? Patient with a plasmic score of 6 which is intermittent.?? Plan discussed with pathology and plan for plasmapheresis today.?? Consent obtained from patient and legal guardian for dialysis catheter placement. Broad differentials within TMA.?? Including malignant hypertension, TTP and HUS.?? Oshea 13 has been sent.?? Pending results.?? In the meantime plan to continue plasmapheresis.?? Atypical HUS complement panel along with genetic panel has been sent as well. ?? Interestingly patient does have GI symptoms including diarrhea.?? Although unclear if bloody or not.?? GI panel sent to rule out Shiga toxin HUS.?? Does not seem to be on any medications or illicit drugs that may induce TMA.?? Complements while initially normal now showing slight decrease in C3 comp lement.?? Also unlikely to be metabolic TMA.?? DIC workup unremarkable.?? Patient is not .?? Does not seem to have rheumatologic disease.?? Pending rest of workup to differentiate diagnosis. Appreciate hematology's input. Recommend starting steroids. ? If Oshea??13 is within normal and HUS becomes higher in differentials, patient will likely require??long-term treatment with eculizumab??and??meningococcal??prophylaxis. ?? YOHANA in the setting of TMA hopefully with plasmapheresis will start to see improvement in renal function.?? If not may require sessions of hemodialysis.?? This was discussed with the patient, legal guardian.?? At the moment no emergent need for hemodialysis. Plan to hold off on??kidney biopsy.?? Ask risk without weight??benefits at this time.?? Clear picture??of patient??who has TMA.?? Getting empiric treatment.?? If difficult to differentiate cause.?? Then will??obtain??biopsy ?? Blood pressure better controlled plan to continue with current meds. ? PLAN:? Start plasmapheresis today Daily BMP Daily hemolysis labs I&O's Appreciate hematology's input Appreciate transfusion medicine input ?? Pend: Oshea TS13 activity panel Atypical HUS complement panel and genetic panel GI profile? Case discussed with primary team ?? Patient evaluated and discussed with Dr. Melendrez? Carrol Johnson, PGY4 Nephrology Fellow Pager Number [phone]/Available [employer]? Problem List/Past Medical History Ongoing Obese class II Medications Inpatient Acetaminophen Tablet, 650 mg, By Mouth, Every 4 hours, PRN albuterol CFC free 90 mcg/inh inhalation aerosol, 90 mcg= 1 puffs, Inhalation, Every 4 hours, PRN Bolus NaCL 0.9% 500 mL, 500 mL, IV Infusion, Once brimonidine 0.2% ophthalmic solution, 1 drops, Eye, Right, 2 times a day Calcium Carbonate 500 mg Chewable Tablet, 500 mg= 1 tablet, Chew, Every 15 minutes, PRN Calcium Gluconate 4.6mEq/50mL NaCL (1Gm), 4.6 mEq= 50 mL, IVPB, Once cloNIDine 0.1 mg oral tablet, 0.1 mg, By Mouth, 3 times a day DiphenhydrAMINE Inj, 25 mg= 0.5 mL, IV Push, Once, PRN DiphenhydrAMINE Tablet, 25 mg, By Mouth, Once, PRN docusate sodium 100 mg oral capsule, 100 mg= 1 capsule, By Mouth, Daily at bedtime, PRN Dorzolamide 2% Ophth, 1 drops, Eyes, Both, 2 times a day famotidine 20 mg oral tablet, 20 mg, By Mouth, Daily hydrALAZINE Inj, 10 mg= 0.5 mL, IV Push Slowly, Every 6 hours, PRN HydroCORTisone Inj, 100 mg, IV Push Slowly, Once, PRN labetalol 100 mg oral tablet, 100 mg, By Mouth, 2 times a day latanoprost 0.005% ophthalmic solution, 1 drops, Eye, Right, Daily at bedtime loratadine 10 mg oral tablet, 10 mg, By Mouth, Daily LR 1,000 mL, 1000 mL, IV Infusion Melatonin Tablet, 3 mg, By Mouth, Daily at bedtime, PRN MiraLax Powder, 17 Gm= 1 pack/packet, By Mouth, Daily, PRN NaCL 0.9% Flush, 3 mL, IV Push, Every 8 hours NaCL 0.9% Flush, 3 mL, IV Push, Every 8 hours, PRN NIFEdipine 30 mg oral tablet, extended release, 30 mg, By Mouth, Daily OXcarbazepine 300 mg oral tablet, 600 mg, By Mouth, 2 times a day Robitussin DM Liquid, 10 mL, By Mouth, Every 4 hours, PRN Senna Tablet, 8.6 mg= 1 tablet, By Mouth, 2 times a day, PRN Simethicone Tablet, 80 mg, Chew, 3 times a day, PRN Timolol 0.5% Ophth, 1 drops, Eyes, Both, 2 times a day traZODone 50 mg oral tablet, 300 mg, By Mouth, Daily at bedtime Home Albuterol (Eqv-ProAir HFA) 90 mcg/inh inhalation aerosol, 90 mcg= 1 inhalation, Inhalation, Every 4hours, PRN albuterol 0.083% inhalation solution, 2.5 mg= 3 mL, Inhalation, Every 6 hours, PRN Artificial Tears1.4%, 1 drop, Eyes, Both, Daily brimonidine 0.2% ophthalmic solution, 1 drops, Topically, 2 times a day cloNIDine 0.1 mg oral tablet, 0.1 mg, By Mouth, Daily Daily Shellie oral tablet, 1 tablet, By Mouth, Daily docusate sodium 100 mg oral capsule, 100 mg= 1 capsule, By Mouth, Daily at bedtime, PRN dorzolamide-timolol 2.23%-0.68% ophthalmic solution, 1 drops, Eyes, Both, 2 times a day famotidine 40 mg oral tablet, 40 mg= 1 tablet, By Mouth, Daily HydroCORTisone 1% Topical, 1 application, Topically, 3 times a day labetalol 100 mg oral tablet, 100 mg= 1 tablet, By Mouth, 2 times a day latanoprost 0.005% ophthalmic solution, 1 drops, Eye, Right, Daily at bedtime loratadine 10 mg oral tablet, 10 mg= 1 tablet, By Mouth, Daily Melatonin 5 mg oral tablet, 5 mg= 1 tablet, By Mouth, Daily at bedtime, PRN NIFEdipine (Eqv-Adalat CC) 30 mg oral tablet, extended release, 30 mg= 1 tablet, By Mouth, Daily ondansetron 4 mg oral tablet, disintegrating, 4 mg= 1 tablet, By Mouth, Every 8 hours, PRN OXcarbazepine 600 mg oral tablet, 600 mg= 1 tablet, By Mouth, 2 times a day predniSONE 20 mg oral tablet, See Instructions SUMAtriptan 50 mg oral tablet, 50 mg= 1 tablet, By Mouth, Daily, PRN trazodone 50 mg oral tablet, 50 mg= 1 tablet, By Mouth, Daily at bedtime Allergies amoxicillin ampicillin penicillins Immunizations Vaccine Date Status diphtheria-tetanus toxoids (DT) 12/17/2007 Given Comments : [employer] [employer] [facility]. Human Papillomavirus Vaccine 12/17/2007 Given Comments : VIS Given Meningococcal Conjugate Vaccine 08/29/2007 Given Comments : vis given Human Papillomavirus Vaccine 08/29/2007 Given Comments : vis given Human Papillomavirus Vaccine 06/21/2007 Given Comments : VIS GIVEN Human Papillomavirus Vaccine 06/12/2007 Given Comments : vis11/03/06 Tet/Diphth/Acel, Pertussis (oldterm) 11/22/2005 Given Tet/Diphth/Acel, Pertussis (oldterm) 11/22/2005 Given Tet/Diphth/Acel, Pertussis (oldterm) 10/25/2004 Given Hepatitis B Vaccine (old term) 06/10/1997 Given Poliovirus Vaccine, Inactivated 06/10/1997 Given Diphth-Tetanus Toxoids Adsorbed(oldterm) 06/10/1997 Given Hepatitis B Vaccine (old term) 08/12/1994 Given Measles/Mumps/Rubella Virus Vaccine 12/02/1993 Given Poliovirus Vaccine, Inactivated 09/12/1993 Given Hepatitis B Vaccine (old term) 04/07/1993 Given Measles/Mumps/Rubella Virus Vaccine 01/03/1993 Given Haemophilus B Conj Vaccine (oldterm) 1992 Given Diphth-Tetanus Toxoids Adsorbed(oldterm) 1992 Given Diphth-Tetanus Toxoids Adsorbed(oldterm) 1992 Given Haemophilus B Conj Vaccine (oldterm) 1992 Given Haemophilus B Conj Vaccine (oldterm) 1992 Given Poliovirus Vaccine, Inactivated 1992 Given Diphth-Tetanus Toxoids Adsorbed(oldterm) 1992 Given Haemophilus B Conj Vaccine (oldterm) 1992 Given Poliovirus Vaccine, Inactivated 1992 Given Diphth-Tetanus Toxoids Adsorbed(oldterm) 1992 Given Lab Results Test Name Test Result Date/Time WBC 9.0 k/mm3 01/02/2025 17:26 EDT WBC 9.0 k/mm3 01/02/2025 08:43 EDT RBC 3.07 m/mm3 01/02/2025 17:26 EDT RBC 2.92 m/mm3 01/02/2025 08:43 EDT Hgb 8.7 Gm/dL 01/02/2025 17:26 EDT Hgb 8.1 Gm/dL 01/02/2025 08:43 EDT Hct 24.6 % 01/02/2025 17:26 EDT Hct 23.4 % 01/02/2025 08:43 EDT MCV 80.1 femtoliters 01/02/2025 17:26 EDT MCV 80.1 femtoliters 01/02/2025 08:43 EDT MCH 28.3 pg 01/02/2025 17:26 EDT MCH 27.7 pg 01/02/2025 08:43 EDT MCHC 35.4 Gm/dL 01/02/2025 17:26 EDT MCHC 34.6 Gm/dL 01/02/2025 08:43 EDT Platelet Count 37 k/mm3 01/02/2025 17:26 EDT Platelet Count 36 k/mm3 01/02/2025 08:43 EDT Retic Count 3.3 % 01/02/2025 08:43 EDT Retic Count Corrected 1.7 % 01/02/2025 08:43 EDT Retic Production Index 0.9 % 01/02/2025 08:43 EDT INR 1.1 01/02/2025 08:43 EDT Protime (PT) 11.3 seconds 01/02/2025 08:43 EDT APTT 25.6 seconds 01/02/2025 08:43 EDT Fibrinogen 222 mg/dL 01/02/2025 08:43 EDT D-Dimer 4.36 mg/L FEU 01/02/2025 08:43 EDT Phosphorus 4.2 mg/dL 01/02/2025 08:43 EDT LDH 921 units/L 01/02/2025 08:43 EDT Appear/Color, Urine LIGHT YELLOW 01/02/2025 11:55 EDT Specific [place], Urine 1.012 01/02/2025 11:55 EDT pH, Urine 7.0 01/02/2025 11:55 EDT Albumin, Urine 2+ 01/02/2025 11:55 EDT Glucose, Urine TRACE 01/02/2025 11:55 EDT Ketones, Urine NEGATIVE 01/02/2025 11:55 EDT Bilirubin, Urine NEGATIVE 01/02/2025 11:55 EDT Hemoglobin, Urine 1+ 01/02/2025 11:55 EDT Nitrite, Urine NEGATIVE 01/02/2025 11:55 EDT Leukocyte, Urine 1+ 01/02/2025 11:55 EDT Urobilinogen NORMAL 01/02/2025 11:55 EDT WBC's, Urine 16 /HPF 01/02/2025 11:55 EDT RBC's, Urine 3 /HPF 01/02/2025 11:55 EDT Bacteria SLIGHT 01/02/2025 11:55 EDT Squamous Epith 15 /HPF 01/02/2025 11:55 EDT Amorphous Crystals MODERATE 01/02/2025 11:55 EDT Hold Urine Culture Testing available 48 hours from time of collection. 01/02/2025 11:55 EDT Urine, NEGATIVE 01/02/2025 11:55 EDT Protein, Total Urine Random 111 mg/dL 01/02/2025 11:55 EDT TP/Cr Ratio 1.68 01/02/2025 11:55 EDT Creatinine, Urine 65.9 mg/dL 01/02/2025 11:55 EDT * Fabián Melendrez MD: PERFORM Event Display: Consult Authored Date: [id number] RENAL ATTENDING ADDENDUM:??I have seen and evaluated this patient. I have discussed the case and its management with the resident/team as documented in the resident/team note on the day of service. The details of the case including pertinent labs and clinical findings were confirmed by me. The planwas formulated with the student/resident/fellow/PA/MANUFACTURING CLERK as outlined below. 34 year old with slowly worsening renal failure that was being worked up outpatient when she acutely decompensated with signs of MAHA. Serologies negative outpatient. C3 low raises possibility??of complement mediated??aHUS. Given diarrhea would want to rule out STEC-HUS. Plasmic score in the high to indeterminate range though given the degree of renal failure and time course suspect it's less likely TTP but will absolutelyneed to start PLEX until the ADAMSTS 13 is back. Will likely give eculizumab in the next day or twodepending on findings and PLEX schedule. Would like to start by completing meningococcal vaccines. A line will be placed today for PLEX. I will defer kidney biopsy for now as all findings strongly suggest a TMA which does not require renal biopsy for diagnosis and treatment and risk of bleeding is very high. Will see how she progresses over the next couple of days. Will follow very closely.? * Killian Lozano MD: PERFORM Event Display: Consultation Note Authored Date: [id number] 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 Age:??34 Years?Sex:??Female?:??1990?? History of Present Illness 34 YO female with PMH of mood disorder, GERD, mild intellectual disability, hypertension, recent kidney dysfunction, who presented to [facility] as a transfer from [place] with complaints of progressive and severe nausea, vomiting, abdominal pain, with concern for TMA and possible need for plasma exchange/renal biopsy.? Hematology consulted for possible TMA and further evaluation. ?? She reports her symptoms of nausea, vomiting, abdominal pain started on Monday and progressively worsened since that time, with 1 episode of diarrhea during this period of time, which has become more frequent recently.?? She then presented to [facility] for the symptoms, workup there was notable for a creatinine of 6.55, LDH of 1183, platelet count of 62.?? Doppler ultrasound was negative for renal artery stenosis Hepatitis negative, HIV negative, PLA2R antibody negative, IgG, IgM, IgA are normal,??anti-WI-3 negative, myeloperoxidase negative, double-stranded DNA negative,??C3-C4 normal,??anti-GBM negative, scleroderma negative.??There was concern for TMA, after discussion with renal, she was transferred to [facility] for possible plasmapheresis as well as question of renal biopsy.?? In addition, she was noted to have hypertensive emergency, with SBP in the 200s, and was treated with IV labetalol and Nitropaste.?? Blood pressure while here has been ranging in the 160s.?? In addition, repeat LDH is 921, platelet count of 36, D-dimer elevated at 4.36, DIC labs otherwise within normal limits, reticulocyte count essentially within normal limits, does show some mildly decreased production index, haptoglobin less than 10, total bilirubin within normal limits, complement levels largely unremarkable, with C3 mildly decreased at 88.?? Her troponin was elevated at [place], EKG showed long QTc 533, as well as normal sinus rhythm. ?? In terms of her hypertension, she reports she has multiple year history, and this is not well-controlled.?? She follows with a physician, Dr. Caceres, for which several changes to her antihypertensive regimen has been made in attempt to control her blood pressure.?? With regards to her renal dysfunction, this is noted to be around a month and a half duration, where in November, her creatinine wasnoted to be 2, however had significantly increased to 6.5 when she presented at [place].?? At [place], also underwent a lupus workup which was negative.?? Her test is negative, her light LFTs within normal limits.?? She has no signs or symptoms suggestive of malignancy including noticing abnormal weight loss, night sweats, severe back pain, pulmonary symptoms.?? She denies any recent new medications or drugs, states she has been adherent with her medications. ?? Renal team has began workup as well as is initiating treatment with plasma exchange given the high index of suspicion for TTP, and obtain consent for catheter placement today. In addition, they have ordered several studies which are in process, hematology consulted for joint evaluation. Review of Systems Review??of symptoms??is otherwise negative except as mentioned in history of present illness. Objective Vital Signs?? Temperature: 98.4 DegF (01/02/25 12:41:00) Temperature Route: Oral (01/02/25 12:41:00) Pulse Rate: 78 bpm (01/02/25 12:41:00) Respiratory Rate: 20 br/min (01/02/25 13:23:00) Systolic Blood Pressure: 126 mm Hg (01/02/25 12:41:00) Diastolic Blood Pressure:??91 mm Hg??High (01/02/25 12:41:00) Blood pressure sites: Arm, left (01/02/25 12:41:00) Mean Arterial Pressure: 103 mm Hg (01/02/25 12:41:00) Pulse Pressure: 35 mm Hg (01/02/25 12:41:00) Oxygen Saturation: 100 % (01/02/25 12:41:00) Mode of Delivery (Oxygen): Room air (01/02/25 12:41:00) Early Warning Score: 3 (01/02/25 18:15:12) ? Physical Exam Constitutional: Alert, in no acute distress. Head EENT: Extraocular muscle movement intact.??Moist mucous membranes.?? Neck: Supple. No JVD. Cardiovascular: S1S2 regular. No murmurs, rubs or gallops. Respiratory: Clear to auscultation. No wheezing or crackles. No use of accessory muscles. Gastrointestinal: Abdomen soft, mild tenderness to palpation diffusely, non- distended. Muffled bowel sounds.. Extremities: No lower extremity pitting??edema. Neurologic: AAOx3, Speech normal. No focal neurological deficits. Skin: No rash. Psychiatric: Normal mood and affect.?? Assessment/Plan Assessment:??34 YO female with PMH of mood disorder, GERD, mild intellectual disability, hypertension, recent kidney dysfunction, who presented to [facility] as a transfer from [place] with complaints of progressive and severe nausea, vomiting, abdominal pain, with concern for TMA and possible need for plasma exchange/renal biopsy.? 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) Acute renal failure (N17.9) She presented with??signs/symptoms suggestive of??TMA, including??signs of hemolysis??correlated with??thrombocytopenia,??elevated LDH,??significantly decreased haptoglobin,??as well as??peripheral blood smear??showing??several schistocytes??and suggestive of??MAHA.?Given??her recent??history??of presenting illness,??with symptoms??of nausea/vomiting??and diarrhea,??there is also suspicion for??HUS.?In addition,??primary differential??includes TTP,??which??can either be hereditary or immune,??other differentials which are less likely include drug-induced??TMA syndromes, complement mediated TMA, or other rare hereditary disorders.?Workup??including??ADAMTS 13 reflex panel, aHUS complement panel, GI PCR, and formal PBS review has already been initiated and is in process.??Patient has a plasmic score of 5, intermediate risk for which due to high index of suspicion for TTP, agree with initiation of plasma exchange.??In addition, can add steroids, prednisone 1 mg/kg/day and continue to monitor. ?? Recommendations: ??? Follow up workup including [id number] panel, AHUS complement panel, GI PCR ??? Can start prednisone 1 mg/kg/day and continue to monitor renal function, platelet count ?? Patient???s care and plan discussed with attending, Dr. Briscoe. ?? This??note has been dictated with the assistance of Dragon dictation and may contain unintentional errors. Please feel free to contact me for any clarification. ?? Killian Lozano MD Internal Medicine PGY1 Available by [employer]ampoline or [id number] Histories Allergies Allergies ?(Active and Proposed Allergies Only) penicillins? (Severity: Unknown severity, Onset: Unknown) ampicillin? (Severity: Unknown severity, Onset: Unknown) amoxicillin? (Severity: Unknown severity, Onset: Unknown) ? Past Medical History/Problem List Active Problems(1) Obese class II ? Past Surgical History No surgery history documented. ? Social History No social history documented. ? Family History No Family History documented. ? Medications Home Medications Albuterol (Albuterol (Eqv-ProAir HFA) 90 mcg/inh inhalation aerosol)??1 inhalation 90 Microgram Inhalation Every 4 hours as needed as needed for shortness of breath or wheezing Albuterol (albuterol 0.083% inhalation solution)??3 Milliliter 2.5 Milligram Inhalation Every 6 hours as needed Wheezing/Shortness of Breath Brimonidine Ophthalmic (brimonidine 0.2% ophthalmic solution)??1 Drops Topically 2 times a day rt eye Clonidine (cloNIDine 0.1 mg oral tablet)??0.1 Milligram By Mouth Daily Docusate (docusate sodium 100 mg oral capsule)??1 capsule 100 Milligram By Mouth Daily at bedtime as needed as needed for constipation Dorzolamide-Timolol Ophthalmic (dorzolamide-timolol 2.23%-0.68% ophthalmic solution)??1 Drops Eyes,Both 2 times a day Famotidine (famotidine 40 mg oral tablet)??1 tab(s) 40 Milligram By Mouth Daily Hydrocortisone Topical (HydroCORTisone ??1% Topical)??1 jorge Topically 3 times a day Labetalol (labetalol 100 mg oral tablet)??1 tab(s) 100 Milligram By Mouth 2 times a day Latanoprost Ophthalmic (latanoprost 0.005% ophthalmic solution)??1 Drops Eye, Right Daily at bedtime Loratadine (loratadine 10 mg oral tablet)??10 Milligram 1 tablet By Mouth Daily Melatonin (Melatonin 5 mg oral tablet)??1 tab(s) 5 Milligram By Mouth Daily at bedtime as needed for insomnia Multivitamin (Daily Shellie oral tablet)??1 tab(s) By Mouth Daily NIFEdipine (NIFEdipine (Eqv-Adalat CC) 30 mg oral tablet, extended release)??1 tab(s) 30 Milligram By Mouth Daily Ocular Lubricant (Artificial Tears1.4%)??1 drop Eyes, Both Daily Ondansetron (ondansetron 4 mg oral tablet, disintegrating)??1 tab(s) 4 Milligram By Mouth Every 8 hours as needed as needed for nausea/vomiting Oxcarbazepine (OXcarbazepine 600 mg oral tablet)??1 tab(s) 600 Milligram By Mouth 2 times a day PredniSONE (predniSONE 20 mg oral tablet)??See Instructions 1 tablet By Mouth every other day Sumatriptan (SUMAtriptan 50 mg oral tablet)??1 tab(s) 50 Milligram By Mouth Daily as needed for migraine headache may repeat dose after 2 hours up to a maximum of 2 Trazodone (trazodone 50 mg oral tablet)??50 Milligram 1 tab(s) By Mouth Daily at Bedtime for 30 Days ? Results Recent Labs BLOOD BANK [facility]FP Unit ID [id number] ()?? 01/02/2025 16:24 FFP Available XM ()?? 01/02/2025 16:24 ?? BLOOD COUNT & DIFF WBC 9.0 k/mm3 ()?? 01/02/2025 17:26 RBC 3.07 m/mm3 (Low)?? 01/02/2025 17:26 Hgb 8.7 Gm/dL (Low)?? 01/02/2025 17:26 Hct 24.6 % (Low)?? 01/02/2025 17:26 MCV 80.1 femtoliters ()?? 01/02/2025 17:26 MCH 28.3 pg ()?? 01/02/2025 17:26 MCHC 35.4 Gm/dL ()?? 01/02/2025 17:26 Platelet Count 37 k/mm3 (Low)?? 01/02/2025 17:26 RDW-SD 41.8 femtoliters ()?? 01/02/2025 17:26 MPV NOT MEASURED femtoliters ()?? 01/02/2025 17:26 Nucleated RBC (Automated) 0.2 #/100 WBC'S ()?? 01/02/2025 17:26 Abs. NRBC 0.0 k/mm3 ()?? 01/02/2025 17:26 Abs. Neut 7.0 k/mm3 ()?? 01/02/2025 08:43 Abs. Lymph 1.0 k/mm3 ()?? 01/02/2025 08:43 Abs. [place] 0.6 k/mm3 ()?? 01/02/2025 08:43 Abs. Eo 0.2 k/mm3 ()?? 01/02/2025 08:43 Abs. Baso 0.1 k/mm3 ()?? 01/02/2025 08:43 Neut % 78.7 % (High)?? 01/02/2025 08:43 Lymph % 10.8 % (Low)?? 01/02/2025 08:43 [place] % 6.7 % ()?? 01/02/2025 08:43 Eos % 1.9 % ()?? 01/02/2025 08:43 Baso % 0.8 % ()?? 01/02/2025 08:43 Retic Count 3.3 % (High)?? 01/02/2025 08:43 Retic Count Corrected 1.7 % ()?? 01/02/2025 08:43 Retic Production Index 0.9 % (Low)?? 01/02/2025 08:43 Imm Gran 1.1 % ()?? 01/02/2025 08:43 Abs. Imm Gran 0.1 k/mm3 ()?? 01/02/2025 08:43 ?? CARDIAC High Sensitivity Troponin (HSTnT) 150 ng/L (Critical)?? 01/01/2025 23:45 ?? CHEM GENERAL Sodium 137 mmol/L ()?? 01/02/2025 03:08 Potassium 3.4 mmol/L (Low)?? 01/02/2025 03:08 Chloride 105 mmol/L ()?? 01/02/2025 03:08 Bicarbonate Level 15 mmol/L (Low)?? 01/02/2025 03:08 Anion Gap 17 mmol/L ()?? 01/02/2025 03:08 Glucose Level 94 mg/dL ()?? 01/02/2025 03:08 Glucose, POC 86 mg/dL ()?? 01/02/2025 07:07 BUN 85 mg/dL (High)?? 01/02/2025 03:08 Creatinine-Blood 7.70 mg/dL (High)?? 01/02/2025 03:08 Estimated GFR Creatinine 7 ML/MIN/1.73 M2 ()?? 01/02/2025 03:08 Calcium 8.2 mg/dL (Low)?? 01/02/2025 03:08 Phosphorus 4.2 mg/dL ()?? 01/02/2025 08:43 Protein, Total 5.5 Gm/dL (Low)?? 01/02/2025 03:08 Albumin 3.4 Gm/dL ()?? 01/02/2025 03:08 AG Ratio 1.6 ()?? 01/02/2025 03:08 LDH 921 units/L (High)?? 01/02/2025 08:43 Alkaline Phosphatase 73 units/L ()?? 01/02/2025 03:08 AST (SGOT) 20 units/L ()?? 01/02/2025 03:08 ALT (SGPT) 13 units/L ()?? 01/02/2025 03:08 Bilirubin, Total 0.5 mg/dL ()?? 01/02/2025 03:08 ?? COAG INR 1.1 ()?? 01/02/2025 08:43 Protime (PT) 11.3 seconds ()?? 01/02/2025 08:43 APTT 25.6 seconds ()?? 01/02/2025 08:43 Fibrinogen 222 mg/dL ()?? 01/02/2025 08:43 D-Dimer 4.36 mg/L FEU (High)?? 01/02/2025 08:43 ?? IMMUNOLOGY GENERAL Complement C3 88 mg/dL (Low)?? 01/02/2025 03:08 Complement C4 25 mg/dL ()?? 01/02/2025 03:08 Haptoglobin <10 mg/dL (Low)?? 01/02/2025 03:08 ?? MISC. CHEMISTRY Hold Green Top SPECIMEN DISCARDED AFTER 1 WEEK ()?? 01/02/2025 08:43 ?? UA/URINALYSIS Appear/Color, Urine LIGHT YELLOW ()?? 01/02/2025 11:55 Specific [place], Urine 1.012 ()?? 01/02/2025 11:55 pH, Urine 7.0 ()?? 01/02/2025 11:55 Albumin, Urine 2+ (Abnormal)?? 01/02/2025 11:55 Glucose, Urine TRACE (Abnormal)?? 01/02/2025 11:55 Ketones, Urine NEGATIVE ()?? 01/02/2025 11:55 Bilirubin, Urine NEGATIVE ()?? 01/02/2025 11:55 Hemoglobin, Urine 1+ (Abnormal)?? 01/02/2025 11:55 Nitrite, Urine NEGATIVE ()?? 01/02/2025 11:55 Leukocyte, Urine 1+ (Abnormal)?? 01/02/2025 11:55 Urobilinogen NORMAL mg/dL ()?? 01/02/2025 11:55 WBC's, Urine 16 /HPF (High)?? 01/02/2025 11:55 RBC's, Urine 3 /HPF ()?? 01/02/2025 11:55 Bacteria SLIGHT HPF (Abnormal)?? 01/02/2025 11:55 Squamous Epith 15 /HPF (High)?? 01/02/2025 11:55 Amorphous Crystals MODERATE /HPF ()?? 01/02/2025 11:55 ?? URINE OTHER Urine, NEGATIVE (N)?? 01/02/2025 11:55 Protein, Total Urine Random 111 mg/dL ()?? 01/02/2025 11:55 TP/Cr Ratio 1.68 (High)?? 01/02/2025 11:55 Creatinine, Urine 65.9 mg/dL ()?? 01/02/2025 11:55 Est Creatinine Clearance 8.52 mL/min ()?? 01/02/2025 06:12 ? * Gurwinder Briscoe DO: PERFORM Event Display: Consultation Note Authored Date: The patient was seen and examined with Dr. Killian Lozano, Internal Medicine Resident.?? We reviewed anddiscussed the patient's clinical history, physical exam, and formulated a joint treatment plan.?? Iagree with what is written in the Resident's note.? Ms. Cassidy Cartwright is a 34-Year-Old Female with a concern for TMA and potential need for plasma exchange and renal biopsy.?? Peripheral smear, laboratory studies showed signs of hemolysis, schistocytes, increased reticulocytosis, elevated LDH, decreased haptoglobin.?? There is suspicion for HUS and TTP.?? Awaiting further testing for [id number], complement, PCR for GI causes.?? Plasmic score calculated at 5: Intermediate risk, with agreement to start on plasma exchange.?? We recommend Prednisone 1 mg/kg which assists in improvement.? Gurwinder Briscoe, DO Hematology & Medical Oncology ? History and physical note * Eder GARCIA, [facility]: PERFORM Event Display: History and Physical Hospital Authored Date: [id number] 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 Age:??34 Years?Sex:??Female?:??1990?? History of Present Illness ?? 34-year-old female with a past medical history of mood disorder, GERD, mild intellectual disability, hypertension presented to the [facility] with intractable nausea, vomiting, abdomen pain,?? w/u??showed creatinine??6.55, for LDH of 1183, urine protein, platelet count of 62, creatinine of 6 concern for thrombotic microangiopathy, case was discussed with renal and recommended transfer to [facility] for possibly plasmapheresis and renal biopsy ??hospital course at [facility]:?? Patient was also noted to have hypertensive emergency she was treated with IV labetalol and Nitropaste, ?? CT abdomen pelvis was obtained which did not show any acute abnormalities( per d/c summary< full ct report not available to review)?? nausea and vomiting were treated with supportive care with IV Pepcid in clinic with diet, elevated troponin 2/2 htn emergency, echo showed normal EF, no WMA.? Hypokalemia due to GI losses repleted,?Leukocytosis stable viral prodrome with nausea vomiting negative flu COVID, urine culture showed mixed adalberto?Labs 01/01/2025, sodium 135, potassium 3, chloride 109, bicarb 11, gap of 18, BUN 67, creatinine 6.55, GFR 7, glucose 109, calcium 8, troponin 631.9, 31, MCH 27-35.7, RDW 14 platelet count 44 PT 27.9, urine 25.7, APTT WBC 15.7, RBC 3.83, hemoglobin 10.7??(dropped from 12.9??from admission),??adequate 30, MCV 78.3, MCH??27.9, MCH 35.7, RDW 14.5, platelet 44 ? UA yellow, cloudy, patient 7.5, specific gravity 1.015, urine protein greater than thousand, glucose negative, ketones negative, blood large 3+, nitrate negative, leukocyte esterase trace, RBC 3-5, WBC 0-5, squamous epithelial cells 3-5, urine bacteria, hyaline casts 3-5 ?? Family history of hypertension in father ?? Surgical history status post laparoscopic cholecystectomy, history of eye surgery ? on arrival here, patient noted to have elevated bp??183/117, she is nauseous, uncomfortable, she Toy any headache, vision??changes, cold, cough, congestion, chest pain, sob,?? she has abdomen pain,?? she denies any urinary symptoms?? she has weakness, numbness, tingling , has baseline has rt sided weakness?? she denies any bleeding -melena, hematochezia, hematuria? Review of Systems as noted in HPI?? Objective ? Vital Signs?? Temperature: 98.3 DegF (01/01/25 23:00:00) Temperature Route: Oral (01/01/25 23:00:00) Pulse Rate:??96 bpm??High (01/02/25 00:24:00) Respiratory Rate: 20 br/min (01/01/25 23:00:00) Systolic Blood Pressure:??164 mm Hg??High (01/02/25 00:24:00) Diastolic Blood Pressure:??100 mm Hg??High (01/02/25 00:24:00) Blood pressure sites: Arm, right (01/01/25 23:00:00) Oxygen Saturation: 98 % (01/01/25 23:00:00) Mode of Delivery (Oxygen): Room air (01/01/25 23:00:00) Early Warning Score: 4 (01/02/25 00:41:21) ? Physical Exam Constitutional: Alert, in no acute distress. Head EENT: Extraocular muscle movement intact.??Moist mucous membranes. scar on rt forehead?? Neck: Supple. No JVD. Respiratory: Clear to auscultation. No wheezing or crackles. No use of accessory muscles. Cardiovascular: S1S2 regular. No murmurs, rubs or gallops. Gastrointestinal: Abdomen soft, diffuse tenderness,?? non-distended. Normal bowel sounds. Genitourinary: No CVA tenderness. Extremities: No lower extremity pitting??edema. No cyanosis or clubbing. Neurologic: AAOx3, Speech normal. No?? new focal neurological deficits. very subtle??rt??sided??weakness?? Skin: No rash. Psychiatric: Normal mood and affect Assessment/Plan Diagnoses YOHANA (acute kidney injury) ??(N17.9) Acute hypokalemia ??(E87.6) Acute renal failure ??(N17.9) Elevated troponin ??(R79.89) GERD (gastroesophageal reflux disease) ??(K21.9) HTN (hypertension) ??(I10) Insomnia ??(G47.00) Mood disorder ??(F39) Nausea and vomiting ??(R11.2) ?? Assessment:??32-year-old female with a past medical history of mood disorder, GERD, mild intellectual disability, hypertension presented to the [facility] with intractable nausea, vomiting, abdomen pain,??w/u??showed creatinine??6.55, for LDH of 1183, urine protein, platelet count of 62, creatinine of 6 concern for thrombotic microangiopathy, case was discussed with renal and recommended transfer to [facility] for possibly plasmapheresis and renal biopsy? Acute renal failure (N17.9):??creatinine : 6.55, suspected TMA, given elevated LDH and low plate count? [facility]?? Doppler ultrasound was negative for renal artery stenosis Hepatitis negative, HIV negative, PLA2R antibody negative, IgG, IgM, IgA are normal,??anti-WI-3 negative, myeloperoxidase negative, double-stranded DNA negative,??C3-C4 normal,??anti-GBM negative, scleroderma negative,??LDH 1183, euvolemic COVID-negative??positive, platelet 62,??concern for RPGN??peripheral smear in process, neurology was consulted,??patient likely has TMA, with renal biopsy and urgent transfer for biopsy/plasmapheresis versus Rituxan/eculizumab??based on biopsy. -renal consult in am?? -npo after midnight?? -gentle hydration?? -she was on po prednisone ( reported that she was on it for kidney, unsure if this was getting and renal consult form there didnt specifically say to resume, will defer steroids per them)?? -strict I/O ?? Elevated troponin (R79.89):??elevated troponin ( 5oo range)??which is suspected secondary to hypertensive emergency, cardiology consulted demand related ischemia from hypertension type II NV, no needfor IV heparin, however patient did receive 1 dose of therapeutic Lovenox while she was in the ER,?echo was obtained which shows EF of 65%, no obvious valvular pathology noted no evidence of regional wall motion abnormalities, grade 1 mild diastolic dysfunction, normal RV size and function.? repeat ekg,??nsr,??no acute st-t changes , troponin coming down to 150? Nausea and vomiting (R11.2):?CT abdomen pelvis was obtained which did not show any acute abnormalities( per d/c summary full ct report not available to review)??nausea and vomiting were treated with supportive care with IV Pepcid and clear liquid diet? Acute hypokalemia (E87.6):??replaced,?? will repeat labs here? HTN (hypertension) (I10):??with hypertensive emergency, required IV labetalol, nitrosate per osh notes, she is not compliant with meds, low na diet?? she was d/riley??on labetal 100??mg bid, nifedipine 30 mg?? cont clonidine, will??add prn for elevated BP ? Mood disorder (F39):??cont trileptal? GERD (gastroesophageal reflux disease) (K21.9):??cont pepcid ??once daily? Insomnia (G47.00):??cont trazodone 300 mg at bedtime? VTE Prophylaxis:??scd,??no chemical ppx??due to thrombocytopenia? Discharge Planning:??pending clinical course? Ongoing Medical Necessity:??yohana? Code Status:??full code?Order Code Status:??Code Status Ordered ? This note was created using jigl speech recognition software, there may be unwanted word substitution, typographical errors or grammatical error, an attempt at proofreading has been made to minimize errors. please call if there are any questions regarding plan of care. ?? date of service:??01/01/25 ? Histories Allergies Allergies ?(Active and Proposed Allergies Only) penicillins? (Severity: Unknown severity, Onset: Unknown) ampicillin? (Severity: Unknown severity, Onset: Unknown) amoxicillin? (Severity: Unknown severity, Onset: Unknown) ? Past Medical History/Problem List No problems documented. ? Past Surgical History No surgery history documented. ? Social History No social history documented. ? Family History No Family History documented. ? Medications Home Medications Albuterol (Albuterol (Eqv-ProAir HFA) 90 mcg/inh inhalation aerosol)??1 inhalation 90 Microgram Inhalation Every 4 hours as needed as needed for shortness of breath or wheezing Albuterol (albuterol 0.083% inhalation solution)??3 Milliliter 2.5 Milligram Inhalation Every 6 hours as needed Wheezing/Shortness of Breath Brimonidine Ophthalmic (brimonidine 0.2% ophthalmic solution)??1 Drops Topically 2 times a day rt eye Clonidine (cloNIDine 0.1 mg oral tablet)??0.1 Milligram By Mouth Daily Docusate (docusate sodium 100 mg oral capsule)??1 capsule 100 Milligram By Mouth Daily at bedtime as needed as needed for constipation Dorzolamide-Timolol Ophthalmic (dorzolamide-timolol 2.23%-0.68% ophthalmic solution)??1 Drops Eyes,Both 2 times a day Famotidine (famotidine 40 mg oral tablet)??1 tab(s) 40 Milligram By Mouth Daily Hydrocortisone Topical (HydroCORTisone ??1% Topical)??1 jorge Topically 3 times a day Labetalol (labetalol 100 mg oral tablet)??1 tab(s) 100 Milligram By Mouth 2 times a day Latanoprost Ophthalmic (latanoprost 0.005% ophthalmic solution)??1 Drops Eye, Right Daily at bedtime Loratadine (loratadine 10 mg oral tablet)??10 Milligram 1 tablet By Mouth Daily Melatonin (Melatonin 5 mg oral tablet)??1 tab(s) 5 Milligram By Mouth Daily at bedtime as needed for insomnia Multivitamin (Daily Shellie oral tablet)??1 tab(s) By Mouth Daily NIFEdipine (NIFEdipine (Eqv-Adalat CC) 30 mg oral tablet, extended release)??1 tab(s) 30 Milligram By Mouth Daily Ocular Lubricant (Artificial Tears1.4%)??1 drop Eyes, Both Daily Ondansetron (ondansetron 4 mg oral tablet, disintegrating)??1 tab(s) 4 Milligram By Mouth Every 8 hours as needed as needed for nausea/vomiting Oxcarbazepine (OXcarbazepine 600 mg oral tablet)??1 tab(s) 600 Milligram By Mouth 2 times a day PredniSONE (predniSONE 20 mg oral tablet)??See Instructions 1 tablet By Mouth every other day Sumatriptan (SUMAtriptan 50 mg oral tablet)??1 tab(s) 50 Milligram By Mouth Daily as needed for migraine headache may repeat dose after 2 hours up to a maximum of 2 Trazodone (trazodone 50 mg oral tablet)??50 Milligram 1 tab(s) By Mouth Daily at Bedtime for 30 Days ? Results Recent Labs BLOOD COUNT & DIFF WBC 11.8 k/mm3 (High)?? 01/01/2025 23:45 RBC 3.41 m/mm3 (Low)?? 01/01/2025 23:45 Hgb 9.5 Gm/dL (Low)?? 01/01/2025 23:45 Hct 26.8 % (Low)?? 01/01/2025 23:45 MCV 78.6 femtoliters (Low)?? 01/01/2025 23:45 MCH 27.9 pg ()?? 01/01/2025 23:45 MCHC 35.4 Gm/dL ()?? 01/01/2025 23:45 Platelet Count 36 k/mm3 (Low)?? 01/01/2025 23:45 RDW-SD 40.0 femtoliters ()?? 01/01/2025 23:45 MPV NOT MEASURED femtoliters ()?? 01/01/2025 23:45 Nucleated RBC (Automated) 0.0 #/100 WBC'S ()?? 01/01/2025 23:45 Abs. NRBC 0.0 k/mm3 ()?? 01/01/2025 23:45 ?? CARDIAC High Sensitivity Troponin (HSTnT) 150 ng/L (Critical)?? 01/01/2025 23:45 ?? CHEM GENERAL Sodium 135 mmol/L ()?? 01/01/2025 23:45 Potassium 3.1 mmol/L (Low)?? 01/01/2025 23:45 Chloride 102 mmol/L ()?? 01/01/2025 23:45 Bicarbonate Level 14 mmol/L (Low)?? 01/01/2025 23:45 Anion Gap 19 mmol/L (High)?? 01/01/2025 23:45 Glucose Level 102 mg/dL (High)?? 01/01/2025 23:45 BUN 85 mg/dL (High)?? 01/01/2025 23:45 Creatinine-Blood 7.37 mg/dL (High)?? 01/01/2025 23:45 Estimated GFR Creatinine 7 ML/MIN/1.73 M2 ()?? 01/01/2025 23:45 Calcium 8.3 mg/dL (Low)?? 01/01/2025 23:45 ? 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 Age:??34 Years?Sex:??Female?:??1990?? History of Present Illness [facility] hospital admission 01/02/25 [facility] MICU admission 01/07/25 ?? Patient is a 34-year-old female with a past medical history of congenital varicella syndrome,??mood disorder,??mild intellectual disability,??hypertension, GERD who initially presented to [facility] with abdominal pain, nausea, vomiting. Patient found to have hypertensive emergency, acute renal failure, thrombocytopenia, elevated LDH, low haptoglobin, peripheral smear with schistocytes, with an intermediate risk PLASMIC score of 5, concern for TMA. Patient transferred to [facility] for plasmapheresis and potential renal biopsy. Suspicion for HUS, TTP??vs Atypical HUS. Femoral??HD line??placed and received plex x4. Prednisone 1mg/kg/day. Eculizumab approved for suspicion of atypical HUS. On 01/06 patients course complicated by acute hypoxic respiratory failure, room air to nasal cannula then HFNC and NIV. CT chest revealed GGO and focal consolidations. Afebrile, WBC 13 (10), started on cefepime, ordered sputum cx. Concern for cardiogenic pulmonary edema vs pneumonia. Patient upgraded to MICU for concern of impending respiratory failure. ?? In MICU patient was transitioned from BiPAP to CPAP, tolerating well, O2 saturation mid-high 90's. Reports no longer nauseous, breathing feels better, thirsty.??Increased PO labetalol. ADAMSTS 13 came back normal, Activity 82.5%. Feel most likely aHUS. Failed Lasix challenge and initiated HD on 01/07. Patient hemodynamically stable, weaned from CPAP to 10L Perez, appropriate for transfer to intercare unit. Review of Systems as outlined in HPI otherwise negative Objective Measurements?? Height: 159 cm (01/06/25) Weight: 99.4 kg (01/05/25) Dry Weight: 100.1 kg (01/07/25) Body Mass Index:??39.32 kg/m2??Critical (01/02/25) ? Vital Signs?? Temperature:??100.9 DegF??High (01/07/25 06:00:00) Temperature Route: Axillary (01/07/25 06:00:00) Pulse Rate:??112 bpm??High (01/07/25 12:16:00) Heart Rate Monitored:??111 bpm??High (01/07/25 12:00:19) Respiratory Rate: 26 br/min (01/07/25 12:00:19) Systolic Blood Pressure:??178 mm Hg??High (01/07/25 12:17:00) Diastolic Blood Pressure: 84 mm Hg (01/07/25 12:17:00) Blood pressure sites: Arm, left (01/07/25 12:00:00) Pulse Pressure: 59 mm Hg (01/07/25 11:00:00) Oxygen Saturation: 95 % (01/07/25 12:00:19) Liters per Minute: 10 L/min (01/07/25 12:00:00) Mode of Delivery (Oxygen): Other: perez (01/07/25 12:00:00) FiO2: 35 % (01/07/25 09:34:00) Early Warning Score: 9 (01/07/25 05:20:16) ? Pain Scores 1 - 10 Pain Scale Score: 8 (15:37) ? Ventilator Settings?? FiO2: 35 % (09:34) ?? Intake/Output? 01/01 19:09 01/07 07:00 01/06 07:00 01/05 07:00 01/04 07:00 ?? 01/07 13:03 01/07 13:03 01/07 06:59 01/06 06:59 01/05 06:59 Intake ? 3255.7 ?240 ?180 ?280 ?250 Output ? 1061 ?210 ?850 ?0 ?1 Net Total ? 2194.7 ? 30 ? -670 ?280 ?249 ? Urine Count ? 19 ?0 ?2 ?1 ?4 ? 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 Basic ADLs Activity Assistance: Independent, Weight bearing (01/04/25) Ambulation Activity: Three times a day (01/04/25) Ambulation Distance ft: pt ambulates to the restroom with standby assistance (01/04/25) Ambulatory devices needed: None (01/04/25) Assistance w bathing/eating/dressing: No (01/02/25) Feeding Assistance: Independent (01/04/25) Hygiene: Skin care (01/07/25) Need for Assist w/ Walk/Transfer: Yes (01/02/25) Patient Effort Up to Chair: Weight bearing (01/04/25) Time Dangled at Bedside: 10 (01/04/25) Time Up in Chair: 45 min (01/04/25) ? Physical Exam General: Adult female, lying in hospital bed, awake/alert on NIV, no acute distress Lungs: NIV, tachypnea, bilateral crackles anteriorly, no wheezing appreciated Heart: tachycardic, regular rhythm, S1/S2 heart sounds Abdomen: obese, soft, nontender, nondistended, positive bowel sounds Extremities: warm, bilateral LE edema Neuro: AAOx4, moving extremities x4, following commands Assessment/Plan ?? Neuro: congenital varicella syndrome mood disorder mild intellectual disability ?? Plan: -Tylenol prn -Conintue lidocaine patch -Continue home oxcarbazepine 600mg BID -Continue home trazodone 300mg QHS -Continue home eye drops -Delirium precautions ?? Cardiovascular: Hypertensive emergency Cariogenic pulmonary edema HR 100-110's, SBP 150-190's ?? Plan: -Goal BP <160/100 -Currently ordered for clonidine 0.1mg TID; goal to taper off -Increase labetalol 100mg BID to 200mg TID -Continue Nifedipine 30mg daily -Volume removal with HD -Echo -Continue filter cloth maker ?? Respiratory: Acute hypoxic respiratory failure requiring NIV Cardiogenic pulmonary edema Concern for Pneumonia ?? CT chest w/o contrast: Ground-glass nodular opacities and more focal consolidation throughout all pulmonary lobes ?? Plan: -Satting high 90's on BiPAP 15/5/45%, transitioned to CPAP 5 and weaned to 10L Perez, satting well -Continue to wean FiO2 as tolerated -Volume removal with HD -Abx as outlined in ID ?? GI: Hx GERD -Continue PO renal diet -Continue home famotidine -last documented BM 01/05 ?? 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 Plan: -Appreciate renal team following -Lasix challenge today 200mg without response -Initiated HD today -Renal dose medications ?? Endocrine: anticipate steroid induced hyperglycemia Start ISS, monitor POC glucose TID before meals ?? Heme: Concern for aHUS Anemia Thrombocytopenia H/H 10.6/30.8 (9.7/28.9), plts 95 (103) ?? Plan: -Appreciate hematology team following -Prednisone 100mg daily (start date 01/03), per heme taper to 40 mg and then taper down 10 mg every 2days -Continue eculizumab (weekly dosing per renal team; received 900mg 01/06) -Trend daily CBC ?? Infectious Disease: Concern for pneumonia Leukocytosis Afebrile, Tmax 100.9, WBC 11.7 (13.0) (on steroids) MRSA PCR negative, MSSA positive Resp viral PCR negative ?? Plan: -Continue Cefepime, plan for 7 day course abx -Continue azithromycin for prophylaxis x14 days per renal team -Follow up sputum cx (in process) -Monitor fever curve and WBC ?? Quality Measures: Code status: FULL Diet:??PO renal diet DVT PPx: start heparin??sc GI PPx: famotidine (home med) ?? Social: Guardian Danielle ([phone]) updated via telephone 01/07, all questions answered at this time. ?? Critical Care Time = 60 minutes (This represents the total time I personally spent evaluating, managing and providing care exclusive of time spent for separately billable procedures.)? Histories Allergies Allergies ?(Active and Proposed Allergies Only) penicillins? (Severity: Unknown severity, Onset: Unknown) ampicillin? (Severity: Unknown severity, Onset: Unknown) amoxicillin? (Severity: Unknown severity, Onset: Unknown) ? Past Medical History/Problem List Active Problems(1) Obese class II ? Past Surgical History No surgery history documented. ? Medications Home Medications Albuterol (Albuterol (Eqv-ProAir HFA) 90 mcg/inh inhalation aerosol)??1 inhalation 90 Microgram Inhalation Every 4 hours as needed as needed for shortness of breath or wheezing Albuterol (albuterol 0.083% inhalation solution)??3 Milliliter 2.5 Milligram Inhalation Every 6 hours as needed Wheezing/Shortness of Breath Brimonidine Ophthalmic (brimonidine 0.2% ophthalmic solution)??1 Drops Topically 2 times a day rt eye Clonidine (cloNIDine 0.1 mg oral tablet)??0.1 Milligram By Mouth Daily Docusate (docusate sodium 100 mg oral capsule)??1 capsule 100 Milligram By Mouth Daily at bedtime as needed as needed for constipation Dorzolamide-Timolol Ophthalmic (dorzolamide-timolol 2.23%-0.68% ophthalmic solution)??1 Drops Eyes,Both 2 times a day Famotidine (famotidine 40 mg oral tablet)??1 tab(s) 40 Milligram By Mouth Daily Hydrocortisone Topical (HydroCORTisone ??1% Topical)??1 jorge Topically 3 times a day Labetalol (labetalol 100 mg oral tablet)??1 tab(s) 100 Milligram By Mouth 2 times a day Latanoprost Ophthalmic (latanoprost 0.005% ophthalmic solution)??1 Drops Eye, Right Daily at bedtime Loratadine (loratadine 10 mg oral tablet)??10 Milligram 1 tablet By Mouth Daily Melatonin (Melatonin 5 mg oral tablet)??1 tab(s) 5 Milligram By Mouth Daily at bedtime as needed for insomnia Multivitamin (Daily Shellie oral tablet)??1 tab(s) By Mouth Daily NIFEdipine (NIFEdipine (Eqv-Adalat CC) 30 mg oral tablet, extended release)??1 tab(s) 30 Milligram By Mouth Daily Ocular Lubricant (Artificial Tears1.4%)??1 drop Eyes, Both Daily Ondansetron (ondansetron 4 mg oral tablet, disintegrating)??1 tab(s) 4 Milligram By Mouth Every 8 hours as needed as needed for nausea/vomiting Oxcarbazepine (OXcarbazepine 600 mg oral tablet)??1 tab(s) 600 Milligram By Mouth 2 times a day PredniSONE (predniSONE 20 mg oral tablet)??See Instructions 1 tablet By Mouth every other day Sumatriptan (SUMAtriptan 50 mg oral tablet)??1 tab(s) 50 Milligram By Mouth Daily as needed for migraine headache may repeat dose after 2 hours up to a maximum of 2 Trazodone (trazodone 50 mg oral tablet)??50 Milligram 1 tab(s) By Mouth Daily at Bedtime for 30 Days ? Inpatient Medications Medications (29) Active SCHEDULED: (21) Azithromycin 500 mg Tablet (Azithromycin Tablet) ??500 mg, By Mouth, Daily Brimonidine 0.2% Ophthalmic Solution (brimonidine 0.2% ophthalmic solution) ??1 drops, Eye, Right, 2 times a day Cefepime 2 Gm Inj (Cefepime Extended IVPB) ??2,000 mg, IVPB, Every 24 hours Clonidine 0.1 mg Tablet (cloNIDine 0.1 mg oral tablet) ??0.1 mg, By Mouth, 3 times a day Dorzolamide 2% Ophthalmic Solution (10mL) (Dorzolamide 2% Ophth) ??1 drops, Eyes, Both, 2 times a day Famotidine 20 mg Tablet (famotidine 20 mg oral tablet) ??20 mg, By Mouth, Daily Heparin 5000 units/mL Inj (1 mL) (Heparin Inj) ??5,000 units 1 mL, Subcutaneous Injection, 3 times a day Insulin Lispro 100 units/mL Inj (Insulin LISPRO Sliding Scale) ??2-10 units, Subcutaneous Injection, 3 times a day before meals Labetalol 200 mg Tablet (labetalol 100 mg oral tablet) ??200 mg, By Mouth, 3 times a day Latanoprost 0.005% Ophthalmic Solution (latanoprost 0.005% ophthalmic solution) ??1 drops, Eye, Right, Daily at bedtime Lidocaine 5% Topical Patch (Lidocaine 5% Patch) ??2 each, Topically, Daily Lidocaine 5% Topical Patch (Lidocaine 5% Patch) ??1 each, Topically, Daily Loratadine 10 mg Tablet (loratadine 10 mg oral tablet) ??10 mg, By Mouth, Daily NaCl 0.9% Flush 3ml (NaCL 0.9% Flush) ??3 mL, IV Push, Every 8 hours NIFEdipine 30 mg ER Tablet (NIFEdipine 30 mg oral tablet, extended release) ??30 mg, By Mouth, Daily Oxcarbazepine 300 mg Tablet (OXcarbazepine 300 mg oral tablet) ??600 mg, By Mouth, 2 times a day PredniSONE 50 mg Tablet (predniSONE 50 mg oral tablet) ??100 mg, By Mouth, Daily Remove Patch (Remove Lidocaine Patch) ??2 each, Topically, Daily at bedtime Remove Patch (Remove Lidocaine Patch) ??1 each, Topically, Daily at bedtime Timolol 0.5% Ophthalmic Solution (Timolol 0.5% Ophth) ??1 drops, Eyes, Both, 2 times a day Trazodone 50 mg Tablet (traZODone 50 mg oral tablet) ??300 mg, By Mouth, Daily at bedtime CONTINUOUS: (0) PRN: (8) Acetaminophen 325 mg Tablet (Acetaminophen Tablet) ??650 mg, By Mouth, Every 4 hours Docusate Sodium 100 mg Capsule (docusate sodium 100 mg oral capsule) ??100 mg 1 capsule, By Mouth, Daily at bedtime Melatonin 3 mg Tablet (Melatonin Tablet) ??3 mg, By Mouth, Daily at bedtime NaCl 0.9% Flush 3ml (NaCL 0.9% Flush) ??3 mL, IV Push, Every 8 hours Ondansetron 2mg/mL Inj (2mL Vial) (Zofran Inj) ??4 mg, IV Push, Every 6 hours Polyethylene Glycol 17 Gm Powder (MiraLax Powder) ??17 Gm 1 pack/packet, By Mouth, Daily PROCHLORperazine 5mg/ml Inj (Compazine Inj) ??5 mg 1 mL, IV Push, Every 6 hours Senna Tablet ??8.6 mg 1 tablet, By Mouth, 2 times a day ? 72 Hour Antibiotic History Active Antibiotics Calendar Day Last Administered First Administered Azithromycin??500 mg, By Mouth, Daily ?2 01/07/2025 12:17 01/06/2025 16:08 Cefepime??2,000 mg, 33.33 mL/hr, IVPB, Every 24 hours ?2 01/06/2025 15:23 01/06/2025 15:23 ? Results Recent Labs BACTERIOLOGY MRSA PCR Result Negative, MRSA target DNA not detected. ()?? 01/06/2025 15:45 S Aureus ??PCR Result Positive, SA target DNA detected. (Abnormal)?? 01/06/2025 15:45 ?? BLOOD BANK [facility] Unit ID [id number]-* ()?? 01/06/2025 12:09 FFP Available RE ()?? 01/06/2025 12:09 ?? BLOOD COUNT & DIFF WBC 11.7 k/mm3 (High)?? 01/07/2025 04:16 RBC 3.61 m/mm3 (Low)?? 01/07/2025 04:16 Hgb 10.6 Gm/dL (Low)?? 01/07/2025 04:16 Hct 30.8 % (Low)?? 01/07/2025 04:16 MCV 85.3 femtoliters ()?? 01/07/2025 04:16 MCH 29.4 pg ()?? 01/07/2025 04:16 MCHC 34.4 Gm/dL ()?? 01/07/2025 04:16 Platelet Count 95 k/mm3 (Low)?? 01/07/2025 04:16 RDW-SD 49.2 femtoliters (High)?? 01/07/2025 04:16 MPV 11.5 femtoliters ()?? 01/07/2025 04:16 Nucleated RBC (Automated) 0.0 #/100 WBC'S ()?? 01/07/2025 04:16 Abs. NRBC 0.0 k/mm3 ()?? 01/07/2025 04:16 Abs. Neut 10.8 k/mm3 (High)?? 01/07/2025 04:16 Abs. Lymph 0.6 k/mm3 (Low)?? 01/07/2025 04:16 Abs. Kingfisher 0.2 k/mm3 (Low)?? 01/07/2025 04:16 Abs. Eo 0.0 k/mm3 ()?? 01/07/2025 04:16 Abs. Baso 0.0 k/mm3 ()?? 01/07/2025 04:16 Neut % 92.4 % (High)?? 01/07/2025 04:16 Lymph % 4.7 % (Low)?? 01/07/2025 04:16 Kingfisher % 2.0 % (Low)?? 01/07/2025 04:16 Eos % 0.1 % ()?? 01/07/2025 04:16 Baso % 0.2 % ()?? 01/07/2025 04:16 Peripheral Blood Smear Review Interp. Reviewed by pathologist. ()?? 01/02/2025 08:43 Platelet Estimate DECREASED ()?? 01/06/2025 11:38 Hemoglobin (POC) POC Cartridge 10.2 Gm/dL (Low)?? 01/07/2025 01:50 Hematocrit (POC) POC Cartridge 30 % (Low)?? 01/07/2025 01:50 Imm Gran 0.6 % ()?? 01/07/2025 04:16 Abs. Imm Gran 0.1 k/mm3 ()?? 01/07/2025 04:16 ?? BLOOD GAS pH (POC) POC Cartridge 7.36 ()?? 01/07/2025 01:50 pCO2 (POC) POC Cartridge 45.4 mm Hg ()?? 01/07/2025 01:50 pO2 (POC) POC Cartridge 82 mm Hg ()?? 01/07/2025 01:50 Estimated Bicarbonate (POC) POC Cart 25.4 mmol/L ()?? 01/07/2025 01:50 % O2 Sat Arterial (POC) POC Cartridge 95 % (Low)?? 01/07/2025 01:50 FIO2 (POC) POC Cartridge 50 % ()?? 01/07/2025 01:50 Lactate, (POC) POC Cartridge 0.9 mmol/L ()?? 01/06/2025 22:51 Base Excess (POC) POC Cartridge 0 ()?? 01/07/2025 01:50 pH 7.38 ()?? 01/07/2025 04:37 pCO2 43 mm Hg ()?? 01/07/2025 04:37 pO2 79 mm Hg (Low)?? 01/07/2025 04:37 Bicarbonate, Estimated 25 mmol/L ()?? 01/07/2025 04:37 Specimen Type - Blood Gas ARTERIAL ()?? 01/07/2025 04:37 Percent O2 (FIO2) 50 ()?? 01/07/2025 04:37 ?? CARDIAC CK, Total 432 units/L (High)?? 01/07/2025 04:16 ?? CHEM GENERAL Sodium 141 mmol/L ()?? 01/07/2025 04:16 Potassium 4.4 mmol/L ()?? 01/07/2025 04:16 Chloride 101 mmol/L ()?? 01/07/2025 04:16 Bicarbonate Level 24 mmol/L ()?? 01/07/2025 04:16 Anion Gap 16 mmol/L ()?? 01/07/2025 04:16 Sodium (POC) POC Cartridge 136 mmol/L ()?? 01/07/2025 01:50 Potassium (POC) POC Cartridge 4.5 mmol/L ()?? 01/07/2025 01:50 Glucose Level 95 mg/dL ()?? 01/07/2025 04:16 Glucose (POC) POC Cartridge 93 ()?? 01/07/2025 01:50 Glucose, POC 104 mg/dL (High)?? 01/07/2025 11:02 BUN 95 mg/dL (High)?? 01/07/2025 04:16 Creatinine-Blood 9.72 mg/dL (High)?? 01/07/2025 04:16 Estimated GFR Creatinine 5 ML/MIN/1.73 M2 ()?? 01/07/2025 04:16 Calcium 8.3 mg/dL (Low)?? 01/07/2025 04:16 Calcium, Ionized pH Corrected 1.16 mmol/L ()?? 01/06/2025 03:15 Ionized Calcium (POC) POC Cartridge 1.16 mmol/L ()?? 01/07/2025 01:50 Phosphorus 5.6 mg/dL (High)?? 01/07/2025 04:16 Magnesium 1.9 mg/dL ()?? 01/07/2025 04:16 Protein, Total 6.4 Gm/dL ()?? 01/06/2025 21:50 Albumin 3.8 Gm/dL ()?? 01/06/2025 21:50 LDH 477 units/L (High)?? 01/07/2025 04:16 Alkaline Phosphatase 68 units/L ()?? 01/06/2025 21:50 AST (SGOT) 19 units/L ()?? 01/06/2025 21:50 ALT (SGPT) 27 units/L ()?? 01/06/2025 21:50 Bilirubin, Total 0.3 mg/dL ()?? 01/06/2025 21:50 ?? COAG INR 1.0 ()?? 01/06/2025 21:50 Protime (PT) 10.7 seconds ()?? 01/06/2025 21:50 APTT <22.0 seconds (Low)?? 01/06/2025 02:10 Fibrinogen 245 mg/dL ()?? 01/06/2025 02:10 [id number] Activity 86.6 ()?? 01/02/2025 17:26 ADAMTS 13 Ab Comment Comment ()?? 01/02/2025 17:26 ?? IMMUNOLOGY GENERAL Complement C3 92 mg/dL ()?? 01/06/2025 02:10 Complement C4 12 mg/dL ()?? 01/06/2025 02:10 Haptoglobin 18 mg/dL (Low)?? 01/07/2025 04:16 ?? MISC. CHEMISTRY Hold Green Top SPECIMEN DISCARDED AFTER 1 WEEK ()?? 01/06/2025 02:10 Procalcitonin 0.50 ng/mL ()?? 01/07/2025 04:16 ?? URINE OTHER Est Creatinine Clearance 6.75 mL/min ()?? 01/07/2025 05:20 ?? VIROLOGY Adenovirus by PCR NEGATIVE ()?? 01/06/2025 11:53 Coronavirus 229E by PCR (not COVID-19) NEGATIVE ()?? 01/06/2025 11:53 Coronavirus HKU1 by PCR (not COVID-19) NEGATIVE ()?? 01/06/2025 11:53 Coronavirus NL63 by PCR (not COVID-19) NEGATIVE ()?? 01/06/2025 11:53 Coronavirus OC43 by PCR (not COVID-19) NEGATIVE ()?? 01/06/2025 11:53 Human Metapneumovirus by PCR NEGATIVE ()?? 01/06/2025 11:53 Rhinovirus/Enterovirus by PCR NEGATIVE ()?? 01/06/2025 11:53 Influenza A by PCR NEGATIVE ()?? 01/06/2025 11:53 Influenza B by PCR NEGATIVE ()?? 01/06/2025 11:53 Parainfluenza 1 by PCR NEGATIVE ()?? 01/06/2025 11:53 Parainfluenza 2 by PCR NEGATIVE ()?? 01/06/2025 11:53 Parainfluenza 3 by PCR NEGATIVE ()?? 01/06/2025 11:53 Parainfluenza 4 by PCR NEGATIVE ()?? 01/06/2025 11:53 RSV by PCR NEGATIVE ()?? 01/06/2025 11:53 Bordetella Pertussis by PCR NEGATIVE ()?? 01/06/2025 11:53 Chlamydophila Pneumoniae by PCR NEGATIVE ()?? 01/06/2025 11:53 Mycoplasma Pneumoniae by PCR NEGATIVE ()?? 01/06/2025 11:53 COVID-19 (SARS-CoV-2) by PCR NEGATIVE ()?? 01/06/2025 11:53 Bordetella Parapertussis by PCR NEGATIVE ()?? 01/06/2025 11:53 ? Abnormal Labs ?? BACTERIOLOGY MRSA PCR Result?Negative, MRSA target DNA not detected. ()?01/06/2025 15:45 S Aureus PCR Result?Positive, SA target DNA detected. (Abnormal) ?01/06/2025 15:45 ?? BLOOD COUNT & DIFF Abs. Lymph?0.6 k/mm3 (Low)?01/07/2025 04:16 Abs. Kingfisher?0.2 k/mm3 (Low)?01/07/2025 04:16 Abs. Neut?10.8 k/mm3 (High)?01/07/2025 04:16 Abs. NRBC?0.0 k/mm3 ()?01/07/2025 04:16 Abs. Imm Gran?0.1 k/mm3 ()?01/07/2025 04:16 Hct?30.8 % (Low)?01/07/2025 04:16 Hemoglobin (POC) POC Cartridge?10.2 Gm/dL (Low) ?:50 Hematocrit (POC) POC Cartridge?30 % (Low) ?01/07/2025 01:50 Hgb?10.6 Gm/dL (Low)?01/07/2025 04:16 Imm Gran?0.6 % ()?01/07/2025 04:16 Lymph %?4.7 % (Low)?01/07/2025 04:16 Kingfisher %?2.0 % (Low)?01/07/2025 04:16 Neut %?92.4 % (High)?01/07/2025 04:16 Nucleated RBC (Automated)?0.0 #/100 WBC'S ()?01/07/2025 04:16 Platelet Count?95 k/mm3 (Low)?01/07/2025 04:16 RBC?3.61 m/mm3 (Low)?01/07/2025 04:16 RDW-SD?49.2 femtoliters (High)?01/07/2025 04:16 WBC?11.7 k/mm3 (High)?01/07/2025 04:16 ?? BLOOD GAS % O2 Sat Arterial (POC) POC Cartridge?95 % (Low) ?01/07/2025 01:50 Base Excess (POC) POC Cartridge?0 ()?01/07/2025 01:50 FIO2 (POC) POC Cartridge?50 % ()?01/07/2025 01:50 Percent O2 (FIO2)?50 ()?01/07/2025 04:37 Specimen Type - Blood Gas?ARTERIAL ()?01/07/2025 04:37 pO2?79 mm Hg (Low)?01/07/2025 04:37 ?? CARDIAC CK, Total?432 units/L (High)?01/07/2025 04:16 ?? CHEM GENERAL BUN?95 mg/dL (High)?01/07/2025 04:16 Calcium?8.3 mg/dL (Low)?01/07/2025 04:16 Creatinine-Blood?9.72 mg/dL (High)?01/07/2025 04:16 Estimated GFR Creatinine?5 ML/MIN/1.73 M2 ()?01/07/2025 04:16 Glucose, POC?104 mg/dL (High)?01/07/2025 11:02 LDH?477 units/L (High)?01/07/2025 04:16 Phosphorus?5.6 mg/dL (High)?01/07/2025 04:16 ?? IMMUNOLOGY GENERAL Haptoglobin?18 mg/dL (Low)?01/07/2025 04:16 ?? MISC. CHEMISTRY Procalcitonin?0.50 ng/mL ()?01/07/2025 04:16 ?? Note: Critical results are displayed in red. ? Blood Glucose Trend Glucose Level: 95 mg/dL (01/07/25 04:16:00) Glucose Level:??116 mg/dL??High (01/06/25 21:50:00) Glucose (POC) POC Cartridge: 93 (01/07/25 01:50:00) Glucose (POC) POC Cartridge:??106??High (01/06/25 22:45:00) Glucose, POC:??104 mg/dL??High (01/07/25 11:02:00) ? CBC, CBC w/Diff?? CBC?? Differential?? WBC:??11.7 k/mm3??High (04:16) Abs. Neut:??10.8 k/mm3??High (04:16) RBC:??3.61 m/mm3??Low (04:16) Abs. Lymph:??0.6 k/mm3??Low (04:16) Hct:??30.8 %??Low (04:16) Abs. Kingfisher:??0.2 k/mm3??Low (04:16) RDW-SD:??49.2 femtoliters??High (04:16) Abs. Eo: 0 k/mm3 (04:16) Nucleated RBC (Automated): 0 #/100 WBC'S (04:16) Abs. Baso: 0 k/mm3 (04:16) Abs. NRBC: 0 k/mm3 (04:16) Neut %:??92.4 %??High (04:16) ?? Lymph %:??4.7 %??Low (04:16) ?? [place]isher %:??2 %??Low (04:16) ?? Eos %: 0.1 % (04:16) ?? Baso %: 0.2 % (04:16) ?? Hemoglobin (POC) POC Cartridge:??10.2 Gm/dL??Low (01:50) ?? Hematocrit (POC) POC Cartridge:??30 %??Low (01:50) ?? Imm Gran: 0.6 % (04:16) ?? Abs. Imm Gran: 0.1 k/mm3 (04:16) ? BMP, Mg, and Phos Anion Gap: 16 mmol/L (04:16) Bicarbonate Level: 24 mmol/L (04:16) BUN:??95 mg/dL??High (04:16) Calcium:??8.3 mg/dL??Low (04:16) Chloride: 101 mmol/L (04:16) Creatinine-Blood:??9.72 mg/dL??High (04:16) Estimated GFR Creatinine: 5 ML/MIN/1.73 M2 (04:16) Glucose Level: 95 mg/dL (04:16) Ionized Calcium (POC) POC Cartridge: 1.16 mmol/L (01:50) Magnesium: 1.9 mg/dL (04:16) Phosphorus:??5.6 mg/dL??High (04:16) Potassium: 4.4 mmol/L (04:16) Sodium: 141 mmol/L (04:16) ?? Coagulation Profile INR: 1 (21:50) Protime (PT): 10.7 seconds (21:50) ?? LFT Albumin: 3.8 Gm/dL (21:50) Alkaline Phosphatase: 68 units/L (21:50) ALT (SGPT): 27 units/L (21:50) AST (SGOT): 19 units/L (21:50) Bilirubin, Total: 0.3 mg/dL (21:50) Protime (PT): 10.7 seconds (21:50) ?? Urinalysis Est Creatinine Clearance: 6.75 mL/min (05:20) Est Creatinine Clearance: 6.79 mL/min (22:36) Est Creatinine Clearance: 7.22 mL/min (13:45) ?? Microbiology ?? MRSA/MSSA PCR Nasal Swab?? Completed?? Source: Swab Body Site: Nose Collected Dt/Tm: 01/06/2025 15:40 Last Updated Dt/Tm: 01/06/2025 17:41 ?? Respiratory Pathogen PCR with COVID-19?? Completed?? Source: Nasopharyngeal Swab Body Site: Nasopharyngeal Collected Dt/Tm: 01/06/2025 11:53 Last Updated Dt/Tm: 01/06/2025 13:00 ? Cardiology Labs CK, Total:??432 units/L??High (01/07/25 04:16:00) High Sensitivity Troponin (HSTnT):??150 ng/L??Critical (01/01/25 23:45:00) ?? Blood Gases pH: 7.38 (04:37) pCO2: 43 mm Hg (04:37) pO2:??79 mm Hg??Low (04:37) Bicarbonate, Estimated: 25 mmol/L (04:37) Specimen Type - Blood Gas: ARTERIAL (04:37) Specimen Type - Blood Gas: ARTERIAL (:50) Specimen Type - Blood Gas: ARTERIAL (22:45) Percent O2 (FIO2): 50 (04:37) pH (POC) POC Cartridge: 7.36 (01:50) pH (POC) POC Cartridge: 7.38 (22:45) pCO2 (POC) POC Cartridge: 45.4 mm Hg (01:50) pCO2 (POC) POC Cartridge: 44.3 mm Hg (22:45) pO2 (POC) POC Cartridge: 82 mm Hg (01:50) pO2 (POC) POC Cartridge: 85 mm Hg (22:45) Estimated Bicarbonate (POC) POC Cart: 25.4 mmol/L (01:50) Estimated Bicarbonate (POC) POC Cart: 26.1 mmol/L (22:45) % O2 Sat Arterial (POC) POC Cartridge:??95 %??Low (01:50) % O2 Sat Arterial (POC) POC Cartridge: 96 % (22:45) FIO2 (POC) POC Cartridge: 50 % (01:50) Lactate, (POC) POC Cartridge: 0.9 mmol/L (22:51) Base Excess (POC) POC Cartridge: 0 (01:50) Base Excess (POC) POC Cartridge: 1 (22:45) ? * Dre GARCIA, Juanjose D: PERFORM Event Display: Admission Note Authored Date: [id number] MICU Attending Attestation ?? I have seen and evaluated??CASSIDY CARTWRIGHT as part of a shared encounter with Aaliyah IRIZARRY. I have personally reviewed the HPI, PMFSH, and ROS. I have personally reviewed the lab, radiography, and study results from this admission. I have discussed the case with EDIE Grossman and agree with the findings, assessment, and plan as documented below with the following highlights, clarifications,and addenda. ?? 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 According to the admission H&P she initially presented to [facility] with nausea, vomiting, and abdominal pain and was found to have acute renal failure and thrombocytopenia, then developed hypertensive emergency that was treated with labetalol and transdermal nitroglycerine with a reportedly normal echocardiogram. It appears that she tolerated plasmapheresis well via her femoral Mahurkar, but her laboratory abnormalities did not improve and the HKYEWO27 was negative, so eculizumab was started on 01/06/2025 for atypical HUS. Over the past 24 hours she developed shortness of breath at rest and progressively worsening hypoxemia in the setting of uncontrolled hypertension. She was started on empirical cefepime and supplemental oxygen, then overnight escalated toCPAP then BIPAP with serial ABG measurements confirming hypoxemia without evidence of hypoventilation. She was also treated with labetalol 10mg IV at 02:40 for BP 194/119, and had been on labetalol 100mg twice daily, nifedipine 30mg daily, and??clonidine 0.1mg 3 times daily yesterday. She has also been on prednisone 100mg daily since 01/03/2025. On my evaluation, she reported that her breathing felt better, particularly after switching back to CPAP from BIPAP, and wanted something to eat or drink. She reported mild substernal chest pain yesterday that was improving, and mild bilateral leg swelling. She denied any perceived fever although she had a temperature of 100.9 last night. She reporteda cough productive of dark brown sputum that has also been improving. She otherwise had no complaints this morning. ?? Assessment: # Acute Hypoxemic Respiratory Failure: Improving on BIPAP=>CPAP. # Acute Cardiogenic Pulmonary Edema: Improving on BIPAP=>CPAP. # Hypertensive Emergency: Improving after Labetalol 10mg IV once. # Acute Diastolic Heart Failure: Mildly hypervolemic on 01/07/2025 examination. # Possible Severe Sepsis / Possible Hospital-Acquired Pneumonia: Improving on empirical cefepime. # Acute Renal Failure: Likely due to atypical HUS. No improving after plasmapheresis. Nearing dialysis. 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 # Mood Disorder: Not otherwise specified, and on an unusual medication regimen for typical diseases. # Nausea/Vomiting: Adequately controlled to tolerate BIPAP/CPAP. # Gastroesophageal Reflux Disease: Chronic, stable. ?? Plan: - Weaned to CPAP 5/0.35 on rounds then transitioned to 10L Perez, tolerating well - Titrate supplemental oxygen via Perez nasal cannula to maintain SpO2 90-94% - Furosemide 200mg IV once, if no significant urine output likely needs hemodialysis - Labetalol 10mg IV spot-dosed to maintain SBP < 160 and DBP < 100 - Check Transthoracic Echocardiogram to assess for systolic dysfunction - Increase Labetalol to 200mg by mouth 3 times daily, assuming normal systolic function - Continue Nifedipine 30mg by mouth daily, consider increasing HR limits labetalol dosing - Continue Clonidine 0.1mg by mouth 3 times daily (ideally replace with other medications) - Holding home Verapamil ER 120mg by mouth daily (non-adherent, and not very effective) - Continue empirical Cefepime renally dosed for 7 days (adjust??dose if starting hemodialysis) - Check procalcitonin, consider early Cefepime discontinuation based on trajectory in 48 hours - Discuss with Nephrology and Hematology whether high-dose prednisone is still indicated - Continue Eculizumab 900mg IV every 7 days (first dose administered inpatient on 01/06/2025) - Confirm Azithromycin prophylaxis dosing with Nephrology (ordered 500mg daily, per note twice daily) - Check Complete Blood Count with differential, LDH, Haptoglobin, and Total/Indirect Bilirubin daily - Confirm home psychiatric medications (Trazodone 300mg QHS, Oxcarbazepine, maybe Clonidine?) - Continue home Famotidine 20mg by mouth daily (reduced from 40mg due to acute renal failure) - Continue home eye drops (Latanoprost, Brimonidine, Dorzolamide-Timolol; for right eye glaucoma?) Remainder as below ?? CASSIDY CARTWRIGHT??is critically ill due to the problems and diagnoses listed above, with a high probability of life-threatening deterioration or . I personally spent 85 minutes of non-overlapping critical care time evaluating and managing the patient, excluding time spent teaching??or performing separately billable procedures. ?? Juanjose Erickson MD Pulmonary Animal Shelter Supervisor [facility] Pager [phone] EKG study * Event Display: EKG Authored Date: * Event Display: ECG 12-Lead Authored Date: Please click on pdf link to open report * Event Display: ECG 12-Lead Authored Date: Ventricular Rate: 96 BPM Atrial Rate: 96 BPM P-R Interval: 162 ms QRS Duration: 86 ms Q-T Interval: 358 ms QTC Calculation(Bazett): 452 ms P Sparks: 57 degrees R Sparks: 66 degrees T Sparks: 38 degrees Normal sinus rhythm Possible Left atrial enlargement Borderline ECG When compared with ECG of 03-Jan-2025 16:08, T wave amplitude has increased in Anterolateral leads Confirmed by CHAZ SENA MD ([id number]) on 01/07/2025 7:56:56 AM [place]: CHAZ SENA MD * Event Display: ECG 12-Lead Authored Date: [id number] Please click on pdf link to open report * Event Display: ECG 12-Lead Authored Date: [id number] Ventricular Rate: 84 BPM Atrial Rate: 84 BPM P-R Interval: 160 ms QRS Duration: 84 ms Q-T Interval: 390 ms QTC Calculation(Bazett): 460 ms P Sparks: 48 degrees R Sparks: 47 degrees T Sparks: 41 degrees Normal sinus rhythm Possible Left atrial enlargement Borderline ECG When compared with ECG of 03-Jan-2025 16:08, No significant change was found Confirmed by CHAZ SENA MD ([id number]) on 01/12/2025 9:06:36 AM [place]: CHAZ SENA MD * Event Display: ECG 12-Lead Authored Date: [id number] Please click on pdf link to open report * Event Display: ECG 12-Lead Authored Date: [id number] Ventricular Rate: 82 BPM Atrial Rate: 82 BPM P-R Interval: 164 ms QRS Duration: 82 ms Q-T Interval: 402 ms QTC Calculation(Bazett): 469 ms P Sparks: 44 degrees R Sparks: 48 degrees T Sparks: 34 degrees Normal sinus rhythm Normal ECG When compared with ECG of 03-Jan-2025 16:08, MANUAL COMPARISON REQUIRED DATA IS UNCONFIRMED Confirmed by ELIUD BAUMAN MD ([id number]) on 01/04/2025 6:05:04 PM [place]: ELIUD BAUMAN MD US Heart * Event Display: Echocardiogram - Complete Authored Date: [id number] Transthoracic Echocardiography Report (TTE) Patient Demographics Patient Name CASSIDY CARTWRIGHT Date of Study 01/07/2025 Corporate Gender Female Facility Race Black .[id number] Ethnicity or Date of 1990 Height: 62.6 inches Age 34 year(s) Weight: 219.14 pounds Accession Number [id number] BSA: 2 m2 Room Number [id number] BMI: 39.32 kg/m2 Referring Ngoc IRIZARRY Interpreting Carmelita Buckley MD Physician Physician Registered Nurse Float Pool Ray [facility] Indications Pulmonary edema. Clinical History HTN Study Data Type of Study TTE procedure:Echo Complete-(Doppler, Colorflow) with Contrast. Procedure Information:Definity was administered by [employer] . Study Date01/07/2025 Start Time: 10:02 AM Study Location: [facility] Adult Echo Study Status: ICU/CCU Patient Status: Routine Technical Quality: Poor due to body habitus. Blood Pressure:178/84 mmHg EKG: Sinus tachycardia HR: 115 bpm Contrast Medium: Definity. Amount - 2 ml 2D Measurements LV Diastolic Dimension: 4.64 cm LV Systolic Dimension: 3.34 cm LV Septum Diastolic: 1.35 cm LV PW Diastolic: 1.27 cm AO Root Dimension: 2.76 cm LA Dimension: 3.7 cm LA ESV (BP):55.24 ml LVOT Stroke Volume: 54.16 ml LA ESV Index: 28 ml/m2 Stroke Volume Index27.08 ml/m2 LVOT: 1.98 cm Cardiac Index:3.12 l/min/m2 Doppler Measurements AV Peak Velocity: 239 cm/s AV Peak Gradient: 22.85 mmHg AV Mean Gradient: 11.26 mmHg AV VTI:34.11 cm LVOT Peak Velocity: 119 cm/s LVOT VTI17.6 cm AV Area (Continuity):1.59 cm2 PV Peak Velocity: 140 cm/s PV Peak Gradient: 7.84 mmHg Cardiac Anatomy Left Ventricle/Interventricular Septum The left ventricle is poorly visualized but improved with contrast enhancement. The left ventricular size is normal. The left ventricular wall thickness is increased. There is mild to moderate concentric left ventricular hypertrophy. The LV systolic function is normal . The left ventricular ejection fraction is 55-60 %. No obvious wall motion abnormalities seen on limited views. Unable to assess diastolic function due to E/A fusion . Left Atrium/Interatrial Septum The left atrium is poorly visualized. The left atrium is normal in size. Aortic Valve The aortic valve is is poorly visualized. There is mild aortic stenosis. There is mild aortic regurgitation. Mitral Valve The mitral valve opening is normal. There is trivial mitral regurgitation. Aorta The aortic root is normal in size. The ascending aorta is not well visualized. Right Ventricle The right ventricle is poorly visualized. Right Atrium The right atrium is poorly visualized. Pulmonic Valve The pulmonic valve is poorly visualized. Tricuspid Valve The tricuspid valve is poorly visualized. Pumonary Artery An accurate pulmonary artery pressure could not be obtained. Venous Structures The inferior vena cava appears grossly normal. Pericardium/Extracardiac There is no significant pericardial effusion. Summary The left ventricle is poorly visualized but improved with contrast enhancement. The left ventricular size is normal. The left ventricular wall thickness is increased. There is mild to moderate concentric left ventricular hypertrophy. The LV systolic function is normal . The left ventricular ejection fraction is 55-60 %. No obvious wall motion abnormalities seen on limited views. Unable to assess diastolic function due to E/A fusion . The right ventricle is poorly visualized. The aortic valve is is poorly visualized. There is mild aortic stenosis. There is mild aortic regurgitation. Comparison No prior study available for comparison. Signature * Event Display: Echocardiogram - Complete Authored Date: Cardiology * Event Display: Cardiac Rhythm Strips Authored Date: * Event Display: Cardiac Rhythm Strips Authored Date: * Event Display: Cardiac Rhythm Strips Authored Date: Laboratory * Event Display: Laboratory Result Scanned by Lab Authored Date: * Event Display: Laboratory Result Scanned by Lab Authored Date: * Event Display: Laboratory Result Scanned Authored Date: Hospital Progress note * Kathy Humphries RN: PERFORM, SIGN, VERIFY Event Display: Progress Note Hospital Authored Date: Patient: CASSIDY CARTWRIGHT Age: 35 years Sex: Female : 1990 Associated Diagnoses: None Author: Kathy Humphries RN Findings Narrative/Incidental pt left unit ambulatory with caregiver. went over discharge paperwork with pt and caregiver, pt understanding discharge. answered any questions and concerns. PIV removed. all belongings taken with the pt.. Discharge Information Case Management Discharge Plan : Case Management Discharge Plan Data 01/21/2025 15:54 EDT Discharge Level of Care at Discharge Home/Longterm/Foster Care * Carrol Johnson MD: PERFORM Event Display: Progress Note Hospital Authored Date: 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 Age:??35 Years?Sex:??Female?:??1990?? SUBJECTIVE: Pt evaluated at bedside and found??in NAD.??Refers??feeling well. ? OBJECTIVE:? Vital Signs (last 24 hrs) ?Last Charted Heart Rate Peripheral?84 bpm ??(JAN 21 08:08) Resp Rate?18 br/min ??(JAN 21 09:22) SBP?H??147mm Hg ??(APR 22 08:08) DBP?82 mm Hg ??(APR 22 08:08) SpO2?99 % ??(APR 22 08:08) Height?159 cm ??(APR 22 08:08) ?? Intake/Output? 04/02 19:09 01/21 07:00 01/20 07:00 01/19 07:00 01/18 07:00 ?? 01/21 12:41 / 12:41 / 06:59 04/21 06:59 04/20 06:59 Intake ?41043.7 ?480 ? 1133 ?846 ?478 Output ?12255 ? 25 ? 1150 ? 1200 ? 1675 Net Total ?-8449.3 ?455 ?-17 ? -354 ?-1197 ? Urine Count ? 24 ?0 ?0 ?0 ?0 Emesis Count ?201 ?200 ?0 ?1 ?0 ? Physical exam GENERAL AOX3, NAD HEENT??left facial scar, left prosthetic eye?? CARDIO RRR RESP CTAx2 ABD +BS, S+D MSK/SKIN/EXT No??edema ?no roach HEMODIALYSIS ACCESS none ? Last CBC, CMP & Coagulation?? WBC: 6.3 k/mm3 (01/21/25) Hgb:??8.1 Gm/dL??Low (01/21/25) Hct:??23.8 %??Low (01/21/25) Platelet Count: 168 k/mm3 (01/21/25) Sodium: 138 mmol/L (01/21/25) Potassium: 4.2 mmol/L (01/21/25) Chloride: 101 mmol/L (01/21/25) Bicarbonate Level:??21 mmol/L??Low (01/21/25) Anion Gap: 16 mmol/L (01/21/25) Glucose Level: 94 mg/dL (01/20/25) Glucose, POC: 86 mg/dL (01/19/25) BUN:??72 mg/dL??High (01/21/25) Creatinine-Blood:??7.97 mg/dL??High (01/21/25) Estimated GFR Creatinine: 6 ML/MIN/1.73 M2 (01/21/25) Calcium: 9 mg/dL (01/20/25) ? Medications (24) Active Scheduled: (17) Azithromycin 500 mg Tablet ??500 mg, By Mouth, Daily Brimonidine 0.2% Ophthalmic Solution ??1 drops, Eye, Right, 2 times a day Clonidine 0.1 mg Tablet ??0.1 mg, By Mouth, 3 times a day Dorzolamide 2% Ophthalmic Solution (10mL) ??1 drops, Eyes, Both, 2 times a day Famotidine 20 mg Tablet ??20 mg, By Mouth, Daily Heparin 5000 units/mL Inj (1 mL) ??5,000 units 1 mL, Subcutaneous Injection, 3 times a day Labetalol 100 mg Tablet ??300 mg, By Mouth, 3 times a day Latanoprost 0.005% Ophthalmic Solution ??1 drops, Eye, Right, Daily at bedtime Lidocaine 5% Topical Patch ??2 each, Topically, Daily Lidocaine 5% Topical Patch ??1 each, Topically, Daily Loratadine 10 mg Tablet ??10 mg, By Mouth, Daily NIFEdipine 60 mg ER Tablet ??60 mg, By Mouth, Every 12 hours Oxcarbazepine 300 mg Tablet ??600 mg, By Mouth, 2 times a day Remove Patch ??2 each, Topically, Daily at bedtime Remove Patch ??1 each, Topically, Daily at bedtime Timolol 0.5% Ophthalmic Solution ??1 drops, Eyes, Both, 2 times a day Trazodone 50 mg Tablet ??300 mg, By Mouth, Daily at bedtime ? 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 Patient initially presented to [facility] ED??due to worsening nausea,??vomiting, diarrhea.?Noted to have a creatinine of 6.5, LDH of 1183,??platelet??62,??haptoglobin less than 8.?Blood pressure was notably high??SBP in the 200s. ??Received IV??antihypertensives. ??Patient was then transferred to [facility]??due to concern of TMAfor??plasmapheresis and possible??kidney biopsy. ?? Plasmic Score: 6 (intermediate) ?? Atypical HUS complement panel: unremarkable HUS??genetic panel: Neg PIQSKQ37: 82% ?? Stage III YOHANA TMA - aHUS HTN 34-year-old woman with possibly smoldering TMA.?? With recent increase in creatinine over the past month.?? Uncontrolled hypertension.?? Now with??MAHA and severe YOHANA.?? All of which are pointing towards TMA. Some initial improvement to labs now s/p 4 plasmapheresis sessions. Last was on 01/05/2025. ??Thankfully respiratory status has improved.?? Received 3 sessions of HD, last was 01/10/2025. Cont with good UOP, made 1.5L in the past 24h. No indication for SOCIAL SERVICES ANALYST. Renal diet ordered. Treating as aHUS. Plan to cont Eculizumab, next dose, 01/27/2025. And will cont with 1200mg IV every two weeks. ?? Received meningococcal vaccination on Monday01/03/2025, will need to complete series. Repeat dose of??conjugated??in 8 weeks and group??B in 1, 2 and 6 months??. S/P meningococcal prophylaxis. ?? Interestingly patient did have GI symptoms including diarrhea.?? Although unclear if bloody or not.?? GI panel ordered to rule out Shiga toxin HUS but not collected.?? Does not seem to be on any medications or illicit drugs that may induce TMA.?? Complements while initially normal now showing slight decrease in C3 complement.?? Also unlikely to be metabolic TMA.?? DIC workup unremarkable.?? Patient is not .?? Does not seem to have rheumatologic disease.?? Pending rest of workup to differentiate diagnosis. HUS still high in differentials due to severe YOHANA. ?? Plan to hold off on??kidney biopsy.?? As risks outweigh??the??benefits at this time.?? Clear picture??of patient??who has TMA.?? Getting empiric treatment.?? If difficult to differentiate cause.?? Then will??obtain??biopsy ?? Renal function finally improving. Likely pt with dense atn. ? PLAN:? No indication for SOCIAL SERVICES ANALYST Renal diet Cont with labetalol, clonidine and nifedipine Eculizumab 900mg weekly for 4 weeks (01/06/2025, 01/13/2025. 01/20/2025, 01/27/2025), then 1200mg every two weeks - To be scheduled in hospital through Pharmacy Pt is to follow up with her [facility] Dr. Willson as outpatient. Will require frequent blood work ? Patient evaluated and discussed with ??Shy ?? Carrol Johnson, PGY4 Nephrology Fellow Pager Number [phone]/Available [employer] * Shy GARCIA, Gil I: PERFORM Event Display: Progress Note Hospital Authored Date: [id number] ?? I reviewed the patient's history, examined the patient, and confirmed the above findings as documented by the fellow/resident. I personally formulated the essential elements of the assessment and plan noted above. Dr. Begum?? * Mac Jean DO: PERFORM Event Display: Progress Note Hospital Authored Date: [id number] [facility] Date and Time: 01/21/2025 12:37 To Whom it May Concern:?CASSIDY CARTWRIGHT??was??hospitalized at [facility] from 01/01- 01/21/25. Please excuse her from work related duties during this time. She may resume work on??01/22/25. ? Sincerely, ?? Mac Jean DO [facility] Medicine [phone] ? Patient Care team information Care Team Personnel Name: Ezequiel Ojeda RN Position: [facility] RN Member Role: Primary Care Nurse Name: Chu Cisse RN Position: [facility] RN Member Role: Primary Care Nurse Name: Refugio Taylor RN Position: [facility] RN Member Role: Primary Care Nurse Name: Robert Manzanares RN Position: [facility] RN Member Role: Primary Care Nurse Name: Kathi Pedraza RN Position: [facility] RN Member Role: Primary Care Nurse Name: Alexandra Paris NP Position: [facility] Associate Professional Member Role: [employer] Consult[employer] Provider Address: [address] [place] [address] [address] [facility] [place] [address]- Telecom: Name: Fabián Melendrez MD Position: [facility] Renal MD Member Role: Lifetime Consulting Physician Address: [address] [place] [address] [address] [facility] [place] [address]- [place] Telecom: Name: Bella Hdez RN Position: [facility] RN Member Role: Primary Care Nurse Name: Dewayne YOUSIF, Hugo Clarke Position: [facility] RN Member Role: Primary Care Nurse Name: Fernandez Tyler MD Position: Reference Physician Member Role: PCP Address: [address] [place] [address]- Telecom: Name: Demetris Spain DO Position: [facility] Renal MD Member Role: Lifetime Consulting Physician Address: [address] [place], [place] [address] [place] [address]- Telecom: Name: Robi Meneses RN Position: S RN Member Role: Primary Care Nurse Name: Sola Guthrie RN Position: S RN Member Role: Primary Care Nurse Name: Pito Persaud RN Position: S RN Member Role: Primary Care Nurse Name: Elsa Jules LPN Position: S RN Member Role: Primary Care Nurse Name: Birdie Kelly LPN Position: [facility] RN Member Role: Primary Care Nurse Name: Qiana Arreola RN Position: [facility] RN Member Role: Primary Care Nurse Care Team Related Persons Name: LINDA WALKER Name: NONE, PT STATES Insurance Providers Guarantor name: NA Health Plan Information #: 1 Payer: [employer] Member Number: [id number] Policy Number: NA Group Number: [facility] Health Plan Information #: 2 Payer: [employer] Member Number: [id number] Policy Number: NA Group Number: NA
--- OUTSIDE RECORDS SUMMARY | 2025-01-24 10:37 | XMS_ITS | Clinical Summary ---
Author Organization [employer] it Address [address] [place] [address] Care Team Providers Care Product Specialist Name Role Phone Fernandez Tyler MD Primary Care Provider [phone] Surgical History Surgery Date Site/Laterality Comments BREAST [...] Influencers of Health Screening 10/31/2023 Influenza Vaccine (Season Ended) 2025 HIB Vaccines Aged Out No longer eligi [...] age to complete this topic Meningococcal B Vaccine Aged Out No l onger eligible based on patient's age to complete this topic RSV Immunization Patients Under 20 months Aged Out No longer eligible b ased on patient's age to complete this topic Varicella Vaccines Aged Out No longer eligible based on patient's age to complete this topic Care Teams Product Specialist Relationship Specialty Start Date End Date Fernandez Tyler MD [address] [place] [address] Drive [address] [place] [address] PCP - General Internal Medicine 03/19/14
[2025-01-24 10:50] LABS: Basophils Absolute Auto 0.1 X10*3/uL (0.0-0.2); Eosinophils Absolute Auto 0.2 X10*3/uL (0.0-0.4); Eosinophils Percent Auto 3.7 % (0-4); Hematocrit 23.9 % (37.0-47.0); Hemoglobin 8.2 g/dl (12.0-16.0); Imm Gran Abs Auto 0.04 X10*3/uL (0.00-0.03); Imm Gran Pct Auto 0.8 % (0.0-0.4); Lymphocytes Absolute Auto 0.6 X10*3/uL (1.2-4.9); Lymphocytes Percent Auto 11.3 % (20-40); Mean Corpuscular HGB Conc 34.3 g/dl (31.0-35.0); Mean Corpuscular Hemoglobin 29.4 pg (27.0-33.0); Mean Corpuscular Volume 85.7 fL (80.0-98.0); Mean Platelet Volume 10.7 fL (9.4-12.3); Monocytes Absolute Auto 0.3 X10*3/uL (0.1-1.2); Monocytes Percent Auto 6.8 % (2-11); Neutrophils Absolute Auto 3.7 x10*3/uL (2.0-8.3); Neutrophils Percent Auto 76.4 % (45-73); Platelet Count 167 X10*3/uL (160-400); Red Blood Count 2.79 X10*6/uL (4.20-5.50); Red Cell Distribution Width 12.7 % (11.0-16.0); White Blood Count 4.9 X10*3/uL (4.8-10.8)
[2025-01-24 10:57] LABS: Appearance Urine Cloudy; Color Urine Yellow; Glucose Urine UA Negative (Negative); Leukocyte Esterase Urine Negative (Negative); Nitrite Urine Negative (Negative); Specific Gravity - Urine 1.015 (1.005-1.025); UMIC TRIGGER UA YES; Urine Blood Trace (Negative); Urine Ketones Negative (Negative); Urine Protein 300 (3+) mg/dL (Neg-Trace)
[2025-01-24 11:03] LABS: Alanine Aminotransferase 18 U/L (0-31); Anion Gap 17 (12-20); Aspartate Amino Transferase 14 U/L (5-31); Bilirubin Total 0.4 mg/dL (0.0-1.0); Blood Urea Nitrogen 53 mg/dL (9-16); Calcium 9.3 mg/dL (8.4-10.2); Carbon Dioxide 21 mmol/L (22-29); Chloride 106 mmol/L (96-108); Estimated Glomerular Filt Rate 6; Potassium 4.3 mmol/L (3.3-5.1); Sodium 140 mmol/L (135-145)
[2025-01-24 13:09] LABS: Bacteria Urine 4+ (None Seen); Hyaline Casts Urine 0-2 /LPF (0-2); RBC Urine 0-2 /HPF (0-2); Squamous Epithelial Cell Urine >20 /HPF (0-2); WBC Urine 0-5 /HPF (0-5)
[2025-02-01 06:59] LABS: Metanephrine, Free 61 pg/mL (<=57); Normetanephrines, Free 291 pg/mL (<=148); Total Metanephrine, Free 352 pg/mL (<=205)
== END 2025-01-24 10:11 | disposition home or self-care (01) ==
LOC: HO.LAB 10:10
PROVIDERS: PCP Internal Medicine; Visit Provider Internal Medicine Nephrology
DX: I10 Essential (primary) hypertension (principal); D59.39 Other hemolytic-uremic syndrome; N17.9 Acute kidney failure, unspecified
CPT/HCPCS: 36415; 80051; 81001; 82247; 82310; 82565; 83835; 84450; 84460; 84520; 85025

== ENCOUNTER 2025-01-29 15:54 | Outpatient (AMB) | payer OTHER, SELFPAY ==
--- NOTE | 2025-01-29 16:22 | HO.NEPHOV_ITS ---
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 Case Operator Required: No Accompanied by: Other Relationship Allergies amoxicillin [AMOXICILLIN] Allergy (Severe, Verified 01/29/25 16:24) ANAPHYLAXIS, swelling Penicillins [PENICILLINS] Allergy (Severe, Verified 01/29/25 16:24) ANAPHYLAXIS polyethylene glycol 3350 [From MIRALAX] Allergy (Severe, Verified 01/29/25 16:24) ANAPHYLAXIS sulindac [SULINDAC] Allergy (Severe, Verified 01/29/25 16:24) SWELLING senna Allergy (Intermediate, Verified 01/29/25 16:24) Unknown seafood Allergy (Verified 01/29/25 16:24) Hives HPI Comments Details: 34-year-old female with pertinent history of mood disorder, gastroesophageal reflux disease, mild intellectual disability, hypertension recently presented to the emergency department for evaluation of nausea and vomiting. She had been having nausea and multiple episodes of nonbloody emesis throughout the day prior to presentation. She also has been having abdominal discomfort at that time which is generalized, constant, not related to food intake, nonradiating, nonprogressive and without any relieving factors. Patient had not been taking her p.o. antihypertensives for the last few days. She had reduced p.o. intake as she is unable to hold anything down due to nausea and vomiting. She denied fever, chills or diarrhea. She has no palpitation, shortness of breath, changes in urinary habits. She has no history of diabetes mellitus, palpitation, orthostasis. Her renal function had been getting worse and now has been having worsening proteinuria. She denied using drugs other than Marijuana. She does not takes nonsteroidal anti-inflammatories regularly. 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 Her mental status was at baseline. She was transferred to [facility] for PLEX/Eculizimab. 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 She had acute hypoxic respiratory failure in hospital with worsening renal function. She responded well to diuresis. She had elevated LDH, thrombocytopenia, decreased haptoglobin with schistocytes on peripheral smear. ADAMTS 13 was negative. Had her femoral HD catheter removed on 01/10/2025. Did not have any renal biopsy. She had steroids and was started on Eculizumab 900 mg weekly for 4 weeks ( 01/06/25, 01/13/25, 01/20/25 and 4th dose due this week). Received meningococcal vaccination and was started on Azithromycin 500 mg daily for 2 weeks ( penicillin allergy) while on eculizumab. She continues to have good urine output. Her GFR still remains less than 10. She has no edema or any other symptoms other than nausea at times. Her appetite is good and denies any SOB, PND, orthopnea or any uremic symptoms. She had hypertensive emergency during hospital stay which improved with medications. [facility] Medical History Possible exposure to STD Breast mass, right Morbid obesity with BMI of 40.0-44.9, adult Hypertension Annual visit for general adult medical examination with abnormal findings Heart murmur, systolic Breast pain Right Achilles tendinitis Erythema intertrigo External hemorrhoids Bleeding hemorrhoids Vitamin D deficiency Heel callus Mild intermittent asthma in adult without complication Ex-cigarette smoker Motion sickness Mild intellectual disability Porcelain gallbladder Migraine Depression with anxiety Dysmenorrhea 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 Brother No problems noted. Brother No problems noted. 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 Cognitive needs: No Hearing needs: No Vision needs: Yes Female Reproductive History Menstrual Age of Menarche: 13 Review of Systems Const All systems reviewed & are unremarkable except as noted in HPI and below Physical Exam Vital Signs: Last Vital Signs Pulse 88 01/29/25 16:24 BP 170/110 H 01/29/25 16:24 Pulse Ox 99 01/29/25 16:24 Oxygen Delivery Method Room Air 01/29/25 16:24 BMI result Body Mass Index 36.2 Const General: comfortable and no acute distress Orientation/consciousness: patient oriented x3 HEENT Head: Yes normocephalic Mouth: Normal oral and palatal mucosa present Eyes EOM: EOMs intact bilaterally Neck Neck: Yes supple Resp Auscultation: clear to auscultation bilaterally Cardio Jugular venous distension: no JVD Rate: regular rate GI Palpation (GI): Soft to palpation Auscultation: normal bowel sounds General: Yes no CVA tenderness Back/Spine/Pelvis Back: no CVA tenderness Skin General skin exam: no rashes or lesions noted Neuro General: patient oriented x3 and moves all extremities Extrem General: Yes no pedal edema Results Reviewed Nephrology Results: Hgb 8.2 g/dl (12.0-16.0) L 01/24/25 WBC 4.9 X10*3/uL (4.8-10.8) 01/24/25 Plt Count 167 X10*3/uL (160-400) 01/24/25 Sodium 140 mmol/L (135-145) 01/24/25 Potassium 4.3 mmol/L (3.3-5.1) 01/24/25 Chloride 106 mmol/L (96-108) 01/24/25 Carbon Dioxide 21 mmol/L (22-29) L 01/24/25 BUN 53 mg/dL (9-16) H 01/24/25 Creatinine 7.61 mg/dL (0.5-1.4) H* 01/24/25 Calcium 9.3 mg/dL (8.4-10.2) 01/24/25 Urine Protein 300 (3+) mg/dL (Neg-Trace) H 01/24/25 Urine Creatinine 81.56 mg/dL 01/01/25 Protein/Creatinin Ratio 2.89 (<0.2) H 01/01/25 Assessment & Plan Assessment & Plan (1) Atypical hemolytic uremic syndrome: Code(s): D59.39 - Other hemolytic-uremic syndrome Category: Medical (2) Microscopic hematuria: Code(s): R31.29 - Other microscopic hematuria Category: Medical (3) PEYTON (acute kidney injury): Code(s): N17.9 - Acute kidney failure, unspecified Category: Medical (4) Proteinuria: Code(s): R80.9 - Proteinuria, unspecified Category: Medical Qualifiers: Proteinuria type: other Qualified Code(s): R80.8 - Other proteinuria (5) Hypertension: Code(s): I10 - Essential (primary) hypertension Category: Medical Qualifiers: Hypertension type: primary hypertension Qualified Code(s): I10 - Essential (primary) hypertension Plan She had worsening of renal function with drop in her platelet count 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 She was transferred to [facility] for PLEX/Eculizimab. 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 She had acute hypoxic respiratory failure in hospital with worsening renal function. She responded well to diuresis. She had elevated LDH, thrombocytopenia, decreased haptoglobin with schistocytes on peripheral smear. ADAMTS 13 was negative. Had her femoral HD catheter removed on 01/10/2025. Did not have any renal biopsy. She had steroids and was started on Eculizumab 900 mg weekly for 4 weeks ( 01/06/25, 01/13/25, 01/20/25 and 4th dose due this week). Received meningococcal vaccination and was started on Azithromycin 500 mg daily for 2 weeks ( penicillin allergy) while on eculizumab. She continues to have good urine output. Her GFR still remains less than 10. She has no edema or any other symptoms other than nausea at times. Her appetite is good and denies any SOB, PND, orthopnea or any uremic symptoms. She had hypertensive emergency during hospital stay which improved with medications. I increased her Clonidine to 0.1mg bid and started her on Zofran. I arranged her 4th dose of Eculizumab this week in [facility] and further doses every 2 weeks.Follow up labs ordered & F/U appointment given( time spent reviewed charts in [facility], pt encounter, documentation 48 minutes) Orders: Orders Complete Blood Count Auto Diff 01/24/25 D59.39 - Other hemolytic-uremic syndrome Electrolytes 01/24/25 D59.39 - Other hemolytic-uremic syndrome Calcium 01/24/25 D59.39 - Other hemolytic-uremic syndrome Blood Urea Nitrogen 01/24/25 D59.39 - Other hemolytic-uremic syndrome Bilirubin Total 01/24/25 D59.39 - Other hemolytic-uremic syndrome Aspartate Amino Transferase 01/24/25 D59.39 - Other hemolytic-uremic syndrome Complete Blood Count Auto Diff 01/24/25 D59.39 - Other hemolytic-uremic syndrome Electrolytes 01/24/25 D59.39 - Other hemolytic-uremic syndrome Complete Blood Count Auto Diff 01/29/25 D59.39 - Other hemolytic-uremic syndrome Creatinine 01/29/25 D59.39 - Other hemolytic-uremic syndrome Complement C3 01/29/25 D59.39 - Other hemolytic-uremic syndrome Complete Blood Count Auto Diff 1 Week D59.39 - Other hemolytic-uremic syndrome Creatinine 1 Week D5.39 - Other hemolytic-uremic syndrome Blood Urea Nitrogen 1 Week D59.39 - Other hemolytic-uremic syndrome Electrolytes 1 Week D59.39 - Other hemolytic-uremic syndrome Creatinine 01/24/25 D59.39 - Other hemolytic-uremic syndrome Alanine Aminotransferase 01/24/25 D59.39 - Other hemolytic-uremic syndrome Blood Urea Nitrogen 01/24/25 D59.39 - Other hemolytic-uremic syndrome Creatinine 01/24/25 D59.39 - Other hemolytic-uremic syndrome Blood Urea Nitrogen 01/29/25 D59.39 - Other hemolytic-uremic syndrome Electrolytes 01/29/25 D59.39 - Other hemolytic-uremic syndrome Lactate Dehydrogenase 01/29/25 D59.39 - Other hemolytic-uremic syndrome Complement C4 01/29/25 D59.39 - Other hemolytic-uremic syndrome Medications: New clonidine HCl 0.1 mg PO BID 60 tabs 6RF ondansetron 4 mg PO Q8H 30 days 90 tabs 4RF acetaminophen (Tylenol Extra Strength) 500 mg PO Q8H 30 days PRN 90 tabs 6RF pain Changed From famotidine take 30 mins ac 20 mg PO DAILY heartburn To famotidine take 30 mins ac 40 mg PO DAILY 90 tabs 0RF heartburn Refilled loratadine 10 mg PO DAILY PRN 30 tabs 5RF allergy symptoms Coding Level of Care Code Est Pt Level 5 (67383) Diagnoses Atypical hemolytic uremic syndrome D59.39 Microscopic hematuria R31.29 PEYTON (acute kidney injury) N17.9 Other proteinuria R80.8 Proteinuria type: other Primary hypertension I10 Hypertension type: primary hypertension
[2025-01-29 16:24] VITALS: BP 170/110; PULSE 88; O2SAT 99; BMI 36.2
--- OUTSIDE RECORDS SUMMARY | 2025-01-29 16:38 | XMS_ITS | Clinical Summary ---
Author Organization [facility] [facility] Address [address] [place] [address] Care Team Providers Care Account Receivable Associate Name Role Phone Fernandez Tyler MD Primary Care Provider [phone] Surgical History Surgery Date Site/Laterality Comments BREAST [...] age to complete this topic Care Teams Account Receivable Associate Relationship Specialty Start Date End Date Fernandez Tyler MD [address] [place] [address] Drive [address] [place] [address] PCP - General Internal Medicine 03/19/14
--- OUTSIDE RECORDS SUMMARY | 2025-01-29 16:38 | XMS_ITS | Data Portability ---
Author Organization EDIE zelaya [facility] Address [address] [place] [address] Care Team Providers Care Peanut Sorter Name Role Phone DANTE MARTINES Primary Care Provider [phone] Assessment No assessment recorded. Plan of Treatment Reminders Order Date Submit Date Provider Last Modified By Organization Details Last Modified Time Details Appointments None recorded. Lab urinalysis , dipstick 2022 023 [email or web address] [facility], [address] [place] [address], [address], 3 19:07:26 test, urine 2022 023 [email or web address] _[facility], [address] [place] [address], [address], 3 19:07:26 culture, urine [email or web address] [facility], [address] [place] [address], [place], [address], 3 19:39:46 urinalysis , dipstick 2022 023 [email or web address] [facility], [address] [place] [address], [address], 3 20:12:31 test, urine 2022 023 [email or web address] [facility], [address] [place] [address], [address], 3 20:12:31 culture, urine 2022 023 [email or web address], [address] [place] [address], [place], [address], 3 15:51:57 rapid strep group A, throat 2021 022 [email or web address] 5 _[facility], [address] [place] [address], [address], 2 18:30:46 rapid flu (A+B) 2021 022 [email or web address] 5 _[facility], [address] [place] [address], [place], [address], 2 18:30:46 rapid SARS CoV 2 Ag, QL IA, respirator y specimen 2021 022 5 _[facility], [address] [place] [address], [place], [address], 2 18:30:46 Referral None recorded. Procedures None recorded. Surgeries None recorded. Imaging None recorded. Medication Orders Macrobid 100 mg capsule 2022 023 [facility]Pharmacy [facility][id number], [address] [facility], [place], [address], 3 19:07:28 nitrofuran toin monohydrat e/macrocry stals 100 mg capsule 2022 023 kevin [facility]/Pharmacy #[id number], [address] [facility], [place], [address], 3 18:28:08 acetaminop hen 325 mg tablet 2021 022 [facility]/Pharmacy #[id number], [address] [facility], [place], [address], 2 18:43:07 Patient TargetsNo targets recorded. Patient Instructions Encounter Date Encounter Id Patient Instructions Last Modified By Organization Details Last Modified Time 09/20/2022 [id number] sore throat: rody pate instructions [email or web address] Not available 09/20/2022 18:30:46 Go to the [facility] emergency department if you develop ANY [...] of water. Not available 09/20/2022 18:25:38 11/02/2022 [id number] urinary tract infection in women information [email or web address] Not available 11/02/2022 20:12:31 You are going [...] antibiotic was prescribed. Thank you for using [email or web address] - please don't hesistate to call our office if you have any questions or concerns. [email or web address] Not available 11/02/2022 20:12:18 11/17/2022 [id number] We recommend you get a repeat urinalysis [...] men Unknown Analyte negati ve Not Available [address], [address], 09/20/2022 17:57:52 09/20/20 22 09/20/2022 rapid strep group A, throa t Unknown Analyte negati ve Not Available [address] [place] [address], [address], 09/20/2022 17:52:10 09/20/20 22 09/20/2022 rapid flu (A+B) Unknown Analyte positi ve Not Available [address] [place] [address], [address], 09/20/2022 17:57:47 09/20/20 22 09/20/2022 rapid flu (A+B) Unknown Analyte negati ve Not Available [address] [place] [address], [address], 09/20/2022 17:57:47 11/02/19 23 11/02/2022 pregn angela test, urine Unknown Analyte Normal = Negati ve Not Available 2099leena lee [address], [place], [address], 11/02/2022 20:03:07 11/02/19 23 11/02/2022 pregn angela test, urine Unknown Analyte negati ve Not Available 2099leena lee [address], [place], [address], 11/02/2022 20:03:07 11/02/19 23 11/02/2022 urina lysis , dipst ick Unknown Analyte Normal = light yellow Not Available 2099leena lee [address], [place], [address], 11/02/2022 19:48:57 11/02/1911/02/2022 urina lysis , dipst ick Unknown Analyte Light Yellow Not Available 2099leena lee [address], [place], [address], 11/02/2022 19:48:57 11/02/19 23 11/02/2022 urina lysis , dipst ick Unknown Analyte Normal = clear Not Available leena lee [address], [place], [place], [address], 11/02/2022 19:48:57 11/02/19 23 11/02/2022 urina lysis , dipst ick Unknown Analyte Clear Not Available [address], [place], [place], [address], 11/02/2022 19:48:57 11/02/19 23 11/02/2022 urina lysis , dipst ick Unknown Analyte Normal = negati ve Not Available leena lee [address], [place], [place], [address], 11/02/2022 19:48:57 11/02/19 23 11/02/2022 urina lysis , dipst ick Unknown Analyte Negati ve Not Available 2099leena lee [address], [place], [address], 11/02/2022 19:48:57 11/02/19 23 11/02/2022 urina lysis , dipst ick Unknown Analyte Normal = Negati ve Not Available 2099leena [address], [place], [address], 11/02/2022 19:48:57 11/02/1911/02/2022 urina lysis , dipst ick Unknown Analyte Negati ve Not Available [facility] [address], [place], [address], 11/02/2022 19:48:57 11/02/19 23 11/02/2022 urina lysis , dipst ick Unknown Analyte Normal = Negati ve Not Available leena [address], [place], [address], 11/02/2022 19:48:57 11/02/1911/02/2022 urina lysis , dipst ick Unknown Analyte Negati ve Not Available leena [address], [place], [address], 11/02/2022 19:48:57 11/02/19 23 11/02/2022 urina lysis , dipst ick Unknown Analyte Normal = 1.010, 1.015, 1.020 Not Available [facility] [address], [place], [address], 11/02/2022 19:48:57 11/02/19 23 11/02/2022 urina lysis , dipst ick Unknown Analyte 1.020 Not Available [address] [place] [address] Drive, [place], [address], 11/02/2022 19:48:57 11/02/1911/02/2022 urina lysis , dipst ick Unknown Analyte Normal = Negati ve Not Available leena lee emem[address], [place], [address], 11/02/2022 19:48:57 11/02/19 23 11/02/2022 urina lysis , dipst ick Unknown Analyte Negati ve Not Available leena pe emem[address], [place], [address], 11/02/2022 19:48:57 11/02/1911/02/2022 urina lysis , dipst ick Unknown Analyte Normal = 6.5, 7.0, 7.5, 8.0 Not Available leena lee emem[address], [place], [address], 11/02/2022 19:48:57 11/02/19 23 11/02/2022 urina lysis , dipst ick Unknown Analyte 6.5 Not Available thelma [address], [place], [address], 11/02/2022 19:48:57 11/02/1911/02/2022 urina lysis , dipst ick Unknown Analyte Normal = Negati ve Not Available [facility]ena pe [facility], [place], [address], 11/02/2022 19:48:57 11/02/1911/02/2022 urina lysis , dipst ick Unknown Analyte Negati ve Not Available leena pe emem[address], [place], [address], 11/02/2022 19:48:57 02/10/21 2211/02/2022 urina lysis , dipst ick Unknown Analyte Normal = 0.2, 1.0 Not Available leena lee [address], [place], [address], 11/02/2022 19:48:57 11/02/19 23 11/02/2022 urina lysis , dipst ick Unknown Analyte 0.2 E.U./d L Not Available [facility] [address], [place], [address], 11/02/2022 19:48:57 11/02/1911/02/2022 urina lysis , dipst ick Unknown Analyte Normal = Negati ve Not Available [facility] [address], [place], [place], [address], 11/02/2022 19:48:57 11/02/1911/02/2022 urina lysis , dipst ick Unknown Analyte Negati ve Not Available leena [address], [place], [address], 11/02/2022 19:48:57 11/02/1911/02/2022 urina lysis , dipst ick Unknown Analyte Normal = Negati ve Not Available [facility] [address], [place], [address], 11/02/2022 19:48:57 11/02/1911/02/2022 urina lysis , dipst ick Unknown Analyte Negati ve Not Available [address], [place], [address], 11/02/2022 19:48:57 11/17/19 23 11/17/2022 pregn angela test, urine Unknown Analyte Normal = Negati ve Not Available [address], [place], [address], 11/17/2022 18:41:03 11/17/19 23 11/17/2022 pregn angela test, urine Unknown Analyte negati ve Not Available [facility] [address], [place], [address], 11/17/2022 18:41:03 11/17/19 23 11/17/2022 urina lysis , dipst ick Unknown Analyte Normal = light yellow Not Available [address] [place] [address], [place], [address], 11/17/2022 18:40:51 11/17/19 23 11/17/2022 urina lysis , dipst ick Unknown Analyte Normal = clear Not Available [address], [place], [address], 11/17/2022 18:40:51 11/17/19 23 11/17/2022 urina lysis , dipst ick Unknown Analyte Normal = negati ve Not Available [address], [place], [address], 11/17/2022 18:40:51 11/17/19 23 11/17/2022 urina lysis , dipst ick Unknown Analyte Normal = Negati ve Not Available [address], [place], [address], 11/17/2022 18:40:51 11/17/19 23 11/17/2022 urina lysis , dipst ick Unknown Analyte Normal = Negati ve Not Available [address], [place], [address], 11/17/2022 18:40:51 11/17/19 23 11/17/2022 urina lysis , dipst ick Unknown Analyte Normal = 1.010, 1.015, 1.020 Not Available leena lee em[address], [place], [address], 11/17/2022 18:40:51 11/17/19 23 11/17/2022 urina lysis , dipst ick Unknown Analyte Normal = Negati ve Not Available [facility] [address], [place], [address], 11/17/2022 18:40:51 11/17/19 23 11/17/2022 urina lysis , dipst ick Unknown Analyte Normal = 6.5, 7.0, 7.5, 8.0 Not Available 2099leena lee [address], [place], [address], 11/17/2022 18:40:51 11/17/19 23 11/17/2022 urina lysis , dipst ick Unknown Analyte Normal = Negati ve Not Available [facility] [address], [place], [address], 11/17/2022 18:40:51 11/17/19 23 11/17/2022 urina lysis , dipst ick Unknown Analyte Normal = 0.2, 1.0 Not Available [facility] [address], [place], [address], 11/17/2022 18:40:51 11/17/19 23 11/17/2022 urina lysis , dipst ick Unknown Analyte Normal = Negati ve Not Available 2099leena lee [address], [place], [address], 11/17/2022 18:40:51 11/17/19 23 11/17/2022 urina lysis , dipst ick Unknown Analyte Normal = Negati ve Not Available [facility] [address], [place], [address], 11/17/2022 18:40:51 11/17/19 23 11/17/2022 urina lysis , dipst ick Unknown Analyte Yellow Not Available thelma [address], [place], [address], 11/17/2022 18:40:51 11/17/19 23 11/17/2022 urina lysis , dipst ick Unknown Analyte Clear Not Available thelma [address], [place], [address], 11/17/2022 18:40:51 11/17/19 23 11/17/2022 urina lysis , dipst ick Unknown Analyte Negati ve Not Available leena lee [address], [place], [address], 11/17/2022 18:40:51 11/17/19 23 11/17/2022 urina lysis , dipst ick Unknown Analyte Negati ve Not Available leena lee [address], [place], [address], 11/17/2022 18:40:51 11/17/19 23 11/17/2022 urina lysis , dipst ick Unknown Analyte Negati ve Not Available leena lee [address], [place], [address], 11/17/2022 18:40:51 11/17/19 23 11/17/2022 urina lysis , dipst ick Unknown Analyte 1.020 Not Available thelma [address], [place], [place], [address], 11/17/2022 18:40:51 11/17/19 23 11/17/2022 urina lysis , dipst ick Unknown Analyte Negati ve Not Available leena lee [address], [place], [place], [address], 11/17/2022 18:40:51 11/17/19 23 11/17/2022 urina lysis , dipst ick Unknown Analyte 7.0 Not Available thelma [address], [place], [address], 11/17/2022 18:40:51 11/17/19 23 11/17/2022 urina lysis , dipst ick Unknown Analyte Negati ve Not Available leena lee [address], [place], [address], 11/17/2022 18:40:51 11/17/19 23 11/17/2022 urina lysis , dipst ick Unknown Analyte 0.2 E.U./d L Not Available leena lee [address], [place], [address], 11/17/2022 18:40:51 11/17/19 23 11/17/2022 urina lysis , dipst ick Unknown Analyte Negati ve Not Available leena lee [address], [place], [address], 11/17/2022 18:40:51 11/17/19 23 11/17/2022 urina lysis , dipst ick Unknown Analyte Negati ve Not Available leena lee [address], [place], [address], 11/17/2022 18:40:51 Result Notes None recorded. Problems Name Problem SNOMED Code Status Onset Date Resolution Date Notes Provider Name and Address Organization Details Recorded Time Insomnia 061915316 Active 2021 EDIE Rivera - [facility] 17:56:19 Depressive disorder 66768711 Active 2021 JAZMIN gaspar PA - [facility] 17:56:26 Bipolar disorder 27208010 Active 2021 JAZMIN KUMAR null, PA - [facility] 2 17:56:36 Migraine 36256418 Active 2021 JAZMIN KUMAR null, PA - [facility] 2 17:56:43 Gastroesophage al reflux disease 309795293 Active 2021 JAZMIN KUMAR null, PA - [facility] 2 17:56:49 Asthma 651778635 Active 2021 JAZMIN KUMAR null, PA - [facility] 2 17:56:57 Constipation 56943175 Active 2021 JAZMIN KUMAR null, PA - [facility] 2 17:57:06 Problem Notes None recorded. Medical Equipment None Reported. Allergies Allergen ID Allergen Name Allergen Category Reaction Reaction Severity Criticality Documentation Date Start Date Code Code System Note Provider Name and Address Organization Details Recorded Time 61462 Miralax medicatio n Not available Not available Not available 09/20/2022 51727 5 RxNorm JAZMIN KUMAR null, PA - [facility] 2 17:54:12 29752 amoxicill in medicatio n Not available Not available Not available 09/20/2022 723 RxNorm JAZMIN BRUNOEY null, PA - [facility] 2 17:54:16 35912 Product containin g penicilli n (product) medicatio n Not available Not available Not available 09/20/2022 05340 8001 SNOMED JAZMIN BRUNOEY null, PA - [facility] 2 17:54:22 79103 sulindac medicatio n Not available Not available Not available 09/20/2022 17448 RxNorm JAZMIN KUMAR null, PA - [facility] 2 17:54:29 75412 sennoside s, DETENTION medicatio n Not available Not available Not available 09/20/2022 36399 RxNorm JAZMIN KUMAR null, [facility] - [facility] [...] Updated DateTime 09/20/2022 162.56 cm 35.9 kg/m2 75426.81 g JAZMIN IRIZARRY - [facility] 09/20/2022 [...] Updated DateTime 3 162.56 cm 35.9 kg/m2 27412.8 1 g 10 99 % 99 % 81 /min 20 /min 97.8 [degF] 147 mm[Hg] 98 mm[Hg] Maeve Bell PA - [facility] 3 19:44:52 Date Recorded Systolic blood pressure Diastolic blood pressure Provider Name and Address Organization Details Last Updated DateTime 11/02/2022 132 mm[Hg] 84 mm[Hg] EDIE STEVE [facility] [place], [address], [place] - [facility] 11/02/2022 20:13:06 Date Recorded Body height Body mass index (BMI) Body weight Pain severity Cruz-Marcus FACES pain rating scale Oxygen saturation Oxygen saturation in Arterial blood by Pulse oximetry Heart rate Respiratory rate Body temperature Systolic blood pressure Diastolic blood pressure Provider Name and Address Organization Details Last Updated DateTime 3 162.56 cm 35.9 kg/m2 09236.8 1 g 5 97 % 97 % 95 /min 18 /min 97.9 [degF] 143 mm[Hg] 88 mm[Hg] Maeve Bell [place] - [facility] 3 18:40:21 Social History Question Answer Notes LastModified by Organizat ion Details LastModified Time Tobacco Smoking Status Former Smoker JAZMIN gaspar PA - [facility] 09/20/2022 17:57:37 What Is Your Level Of Alcohol Consumption? None [email or web address] Information not available 09/20/2022 When Did You Quit Smoking? 1-5yearssin celastcigar ette [email or web address] Information not available 09/20/2022 Do You Use Any Illicit Or Recreational Drugs? No [email or web address] Information not available 09/20/2022 Have You Recently Traveled Abroad? No [email or web address] Information not available 09/20/2022 Do You Or Have You Ever Used Any Other Forms Of Tobacco Or Nicotine? No [email or web address] Information not available 09/20/2022 Sex: Unknown Functional Status None recorded. Mental Status None recorded. Family History Relationship Description Onset Age of this Age Resolved Age Notes LastModified by Organization Details LastModified Time Father No current problems or disability [email or web address] Not available 09/20 17:57:14 Mother No current problems or disability [email or web address] Not available 09/20 17:57:14 Medical History No [...] SNOMED-CT Code Diagnosis ICD10 Code Diagnosis Note [id number] [facility] [address] [place] [address] 03/01/2018 19:08:03 03/01/2018 20:09:30 [id number] [facility] [address] [place] [address] 04/20/2021 11:47:11 04/20/2021 12:34:46 [id number] EDIE Robles [facility] [address] [place] [address] 09/20/2022 17:17:57 09/20/2022 18:38:19 Influenza caused by Influenza A virus 942271806 J09.X2 [id number] EDIE STEVE [facility] [address] [place] [address] 11/02/2022 19:02:21 11/02/2022 20:15:12 Dysuria 05614818 R30.0 [id number] Sanya PaytonJUHI french 21005_[facility] [address] [place] [address] 11/17/2022 16:39:43 11/17/2022 19:10:36 Acute urinary tract infection 491523496 N39.0 Health Concerns Section Related Observation LastModified by Organization Detai ls LastModified Time None Recorded Concern Status LastModified by Organization Details LastModified Time None Recorded Advance Directives Directive None Recorded Payers Encounter Date Sequence Insurance Name Policy Number Policy Tavarez Covered Member ID Tavarez Member ID Guarantor Name 03/01/2018 1 [facility]MED[facility]ID H[facility] MARY JANE Cartwright [id number] Lidmary Caregiver 04/20/2021 1 [facility]MEDICAID HMO) MARY JANE Cartwright [id number] Lidmary Caregiver 09/20/2022 1 [facility]ICA[facility] HMO) MARY JANE Cartwright [id number] Lidmary Caregiver 11/02/2022 1 [facility] H[facility]) MARY JANE Cartwright [id number] Lidmary Caregiver 11/17/2022 1 [facility] (MEDICAID HMO) LUZ MARINANACReuben Cartwright [id number] Lidmary Caregiver Notes Date Note Type Note Provider Name and Address Organization Details Recorded Time 2 text/html Sore throatReported bypatient.Notes:Pt and caregiver report cough, sore throat, congestion, fatigue x 3-4 days. Taking OTC naproxen and using albuterol as previously prescribed. Denies fever, SOB, wheezing currently. EDIE Robles [address] [place], [address], [place] - [facility] 09/20/2022 18:43:28 3 [...] Suárez NP [address] [place], [address], [place] - [facility] 11/17/2022 19:08:05 OBGyn Episode No OBEpisode recorded.
== END 2025-01-29 17:23 | disposition home or self-care (01) ==
LOC: HO.HKA 15:55
PROVIDERS: PCP Internal Medicine; Visit Provider Internal Medicine Nephrology
DX: D59.39 Other hemolytic-uremic syndrome (principal); R31.29 Other microscopic hematuria; N17.9 Acute kidney failure, unspecified; R80.8 Other proteinuria; I10 Essential (primary) hypertension
CPT/HCPCS: 99215

== ENCOUNTER → 2025-01-29 15:54 | Outpatient (BNVA) | payer OTHER, SELFPAY | PROVIDERS: PCP Internal Medicine; Visit Provider Internal Medicine Nephrology | DX: D59.39 Other hemolytic-uremic syndrome (principal); I10 Essential (primary) hypertension; R31.29 Other microscopic hematuria; N17.9 Acute kidney failure, unspecified; R80.8 Other proteinuria | CPT/HCPCS: 99212 ==

== ENCOUNTER 2025-02-05 07:53 | Outpatient (REF) | payer OTHER, SELFPAY ==
--- OUTSIDE RECORDS SUMMARY | 2025-02-05 07:57 | XMS_ITS | Data Portability ---
Author Organization EDIE [facility]el[facility] Address [address] [place] [address] Care Team Providers Care Switch Inspector Name Role Phone DANTE MARTINES Primary Care Provider [phone] Assessment No assessment recorded. Plan of Treatment Reminders Order Date Submit Date Provider Last Modified By Organization Details Last Modified Time Details Appointments None recorded. Lab urinalysis , dipstick 2022 023 [email or web address] [facility], [address] [place] [address], [phone], 3 19:07:26 test, urine 2022 023 [email or web address] [facility], [address] [place] [address], [address], 3 19:07:26 culture, urine 2022 023 [email or web address] [facility], [address] [place] [address], [place], [address], 3 19:39:46 urinalysis , dipstick 2022 023 [email or web address] [facility], [address] [place] [address], [address], 3 20:12:31 test, urine 2022 023 [email or web address] [facility], [address] [place] [address], [address], 3 20:12:31 culture, urine 2022 023 [email or web address], [address] [place] [address], [place], [address], 3 15:51:57 rapid strep group A, throat 2021 022 [email or web address] 5 _[facility], [address] [place] [address], [address], 2 18:30:46 rapid flu (A+B) 2021 022 5 _[facility], [address] [place] [address], [place], [address], 2 18:30:46 rapid SARS CoV 2 Ag, QL IA, respirator y specimen 2021 022 [email or web address] 5 _[facility], [address] [place] [address], [place], [address], 2 18:30:46 Referral None recorded. Procedures None recorded. Surgeries None recorded. Imaging None recorded. Medication Orders Macrobid 100 mg capsule 2022 023 [facility] #[id number], [address] [facility], [place], [address], 3 19:07:28 nitrofuran toin monohydrat e/macrocry stals 100 mg capsule 2022 023 kevin [facility]acy #[id number], [address] [facility], [place], [address], 3 18:28:08 acetaminop hen 325 mg tablet 2021 022 [facility][id number], [address] [facility], [place], [address], 2 18:43:07 Patient TargetsNo targets recorded. Patient Instructions Encounter Date Encounter Id Patient Instructions Last Modified By Organization Details Last Modified Time 09/20/2022 [id number] sore throat: rody pate instructions [email or web address] Not available 09/20/2022 18:30:46 Go to the [facility] emergency department if you develop [...] without a prescription. Drink plenty of water. [email or web address] Not available 09/20/2022 18:25:38 11/02/2022 [id number] urinary tract infection in women information Not [...] antibiotic was prescribed. Thank you for using [facility] - please don't hesistate to call our office if you have any questions or concerns. [email or web address] Not available 11/02/2022 20:12:18 11/17/2022 [id number] We recommend you get a repeat urinalysis [...] men Unknown Analyte negati ve Not Available [address], [address], 09/20/2022 17:57:52 09/20/20 22 09/20/2022 rapid strep group A, throa t Unknown Analyte negati ve Not Available [address] [place] [address], [address], 09/20/2022 17:52:10 09/20/20 22 09/20/2022 rapid flu (A+B) Unknown Analyte positi ve Not Available [address] [place] [address], [address], 09/20/2022 17:57:47 09/20/20 22 09/20/2022 rapid flu (A+B) Unknown Analyte negati ve Not Available [address] [place] [address], [address], 09/20/2022 17:57:47 11/02/19 23 11/02/2022 pregn angela test, urine Unknown Analyte Normal = Negati ve Not Available 2099leena lee [address], [place], [address], 11/02/2022 20:03:07 11/02/19 23 11/02/2022 pregn angela test, urine Unknown Analyte negati ve Not Available 2099leena lee [address], [place], [address], 11/02/2022 20:03:07 11/02/19 23 11/02/2022 urina lysis , dipst ick Unknown Analyte Normal = light yellow Not Available 2099leena lee [address], [place], [address], 11/02/2022 19:48:57 11/02/1911/02/2022 urina lysis , dipst ick Unknown Analyte Light Yellow Not Available 2099leena lee [address], [place], [address], 11/02/2022 19:48:57 11/02/19 23 11/02/2022 urina lysis , dipst ick Unknown Analyte Normal = clear Not Available leena lee [address], [place], [place], [address], 11/02/2022 19:48:57 11/02/19 23 11/02/2022 urina lysis , dipst ick Unknown Analyte Clear Not Available [address], [place], [place], [address], 11/02/2022 19:48:57 11/02/19 23 11/02/2022 urina lysis , dipst ick Unknown Analyte Normal = negati ve Not Available leena lee [address], [place], [place], [address], 11/02/2022 19:48:57 11/02/19 23 11/02/2022 urina lysis , dipst ick Unknown Analyte Negati ve Not Available 2099leena lee [address], [place], [address], 11/02/2022 19:48:57 11/02/19 23 11/02/2022 urina lysis , dipst ick Unknown Analyte Normal = Negati ve Not Available 2099leena [address], [place], [address], 11/02/2022 19:48:57 11/02/1911/02/2022 urina lysis , dipst ick Unknown Analyte Negati ve Not Available [facility] [address], [place], [address], 11/02/2022 19:48:57 11/02/19 23 11/02/2022 urina lysis , dipst ick Unknown Analyte Normal = Negati ve Not Available leena [address], [place], [address], 11/02/2022 19:48:57 11/02/1911/02/2022 urina lysis , dipst ick Unknown Analyte Negati ve Not Available leena [address], [place], [address], 11/02/2022 19:48:57 11/02/19 23 11/02/2022 urina lysis , dipst ick Unknown Analyte Normal = 1.010, 1.015, 1.020 Not Available [facility] [address], [place], [address], 11/02/2022 19:48:57 11/02/19 23 11/02/2022 urina lysis , dipst ick Unknown Analyte 1.020 Not Available [address] [place] [address] Drive, [place], [address], 11/02/2022 19:48:57 11/02/1911/02/2022 urina lysis , dipst ick Unknown Analyte Normal = Negati ve Not Available leena lee emem[address], [place], [address], 11/02/2022 19:48:57 11/02/19 23 11/02/2022 urina lysis , dipst ick Unknown Analyte Negati ve Not Available leena pe emem[address], [place], [address], 11/02/2022 19:48:57 11/02/1911/02/2022 urina lysis , dipst ick Unknown Analyte Normal = 6.5, 7.0, 7.5, 8.0 Not Available leena lee emem[address], [place], [address], 11/02/2022 19:48:57 11/02/19 23 11/02/2022 urina lysis , dipst ick Unknown Analyte 6.5 Not Available thelma [address], [place], [address], 11/02/2022 19:48:57 11/02/1911/02/2022 urina lysis , dipst ick Unknown Analyte Normal = Negati ve Not Available [facility]ena pe [facility], [place], [address], 11/02/2022 19:48:57 11/02/1911/02/2022 urina lysis , dipst ick Unknown Analyte Negati ve Not Available leena pe emem[address], [place], [address], 11/02/2022 19:48:57 02/10/21 2211/02/2022 urina lysis , dipst ick Unknown Analyte Normal = 0.2, 1.0 Not Available leena lee [address], [place], [address], 11/02/2022 19:48:57 11/02/19 23 11/02/2022 urina lysis , dipst ick Unknown Analyte 0.2 E.U./d L Not Available [facility] [address], [place], [address], 11/02/2022 19:48:57 11/02/1911/02/2022 urina lysis , dipst ick Unknown Analyte Normal = Negati ve Not Available [facility] [address], [place], [place], [address], 11/02/2022 19:48:57 11/02/1911/02/2022 urina lysis , dipst ick Unknown Analyte Negati ve Not Available leena [address], [place], [address], 11/02/2022 19:48:57 11/02/1911/02/2022 urina lysis , dipst ick Unknown Analyte Normal = Negati ve Not Available [facility] [address], [place], [address], 11/02/2022 19:48:57 11/02/1911/02/2022 urina lysis , dipst ick Unknown Analyte Negati ve Not Available [address], [place], [address], 11/02/2022 19:48:57 11/17/19 23 11/17/2022 pregn angela test, urine Unknown Analyte Normal = Negati ve Not Available [address], [place], [address], 11/17/2022 18:41:03 11/17/19 23 11/17/2022 pregn angela test, urine Unknown Analyte negati ve Not Available [facility] [address], [place], [address], 11/17/2022 18:41:03 11/17/19 23 11/17/2022 urina lysis , dipst ick Unknown Analyte Normal = light yellow Not Available [address] [place] [address], [place], [address], 11/17/2022 18:40:51 11/17/19 23 11/17/2022 urina lysis , dipst ick Unknown Analyte Normal = clear Not Available [address], [place], [address], 11/17/2022 18:40:51 11/17/19 23 11/17/2022 urina lysis , dipst ick Unknown Analyte Normal = negati ve Not Available [address], [place], [address], 11/17/2022 18:40:51 11/17/19 23 11/17/2022 urina lysis , dipst ick Unknown Analyte Normal = Negati ve Not Available [address], [place], [address], 11/17/2022 18:40:51 11/17/19 23 11/17/2022 urina lysis , dipst ick Unknown Analyte Normal = Negati ve Not Available [address], [place], [address], 11/17/2022 18:40:51 11/17/19 23 11/17/2022 urina lysis , dipst ick Unknown Analyte Normal = 1.010, 1.015, 1.020 Not Available leena lee em[address], [place], [address], 11/17/2022 18:40:51 11/17/19 23 11/17/2022 urina lysis , dipst ick Unknown Analyte Normal = Negati ve Not Available [facility] [address], [place], [address], 11/17/2022 18:40:51 11/17/19 23 11/17/2022 urina lysis , dipst ick Unknown Analyte Normal = 6.5, 7.0, 7.5, 8.0 Not Available 2099leena lee [address], [place], [address], 11/17/2022 18:40:51 11/17/19 23 11/17/2022 urina lysis , dipst ick Unknown Analyte Normal = Negati ve Not Available [facility] [address], [place], [address], 11/17/2022 18:40:51 11/17/19 23 11/17/2022 urina lysis , dipst ick Unknown Analyte Normal = 0.2, 1.0 Not Available 20[facility]e [address], [place], [address], 11/17/2022 18:40:51 11/17/19 23 11/17/2022 urina lysis , dipst ick Unknown Analyte Normal = Negati ve Not Available 2099leena lee [address], [place], [address], 11/17/2022 18:40:51 11/17/19 23 11/17/2022 urina lysis , dipst ick Unknown Analyte Normal = Negati ve Not Available [facility]e [address], [place], [address], 11/17/2022 18:40:51 11/17/19 23 11/17/2022 urina lysis , dipst ick Unknown Analyte Yellow Not Available thelma [address], [place], [address], 11/17/2022 18:40:51 11/17/19 23 11/17/2022 urina lysis , dipst ick Unknown Analyte Clear Not Available thelma [address], [place], [address], 11/17/2022 18:40:51 11/17/19 23 11/17/2022 urina lysis , dipst ick Unknown Analyte Negati ve Not Available leena lee [address], [place], [address], 11/17/2022 18:40:51 11/17/19 23 11/17/2022 urina lysis , dipst ick Unknown Analyte Negati ve Not Available leena lee [address], [place], [address], 11/17/2022 18:40:51 11/17/19 23 11/17/2022 urina lysis , dipst ick Unknown Analyte Negati ve Not Available leena lee [address], [place], [address], 11/17/2022 18:40:51 11/17/19 23 11/17/2022 urina lysis , dipst ick Unknown Analyte 1.020 Not Available thelma [address], [place], [place], [address], 11/17/2022 18:40:51 11/17/19 23 11/17/2022 urina lysis , dipst ick Unknown Analyte Negati ve Not Available leena lee [address], [place], [place], [address], 11/17/2022 18:40:51 11/17/19 23 11/17/2022 urina lysis , dipst ick Unknown Analyte 7.0 Not Available thelma [address], [place], [address], 11/17/2022 18:40:51 11/17/19 23 11/17/2022 urina lysis , dipst ick Unknown Analyte Negati ve Not Available leena lee [address], [place], [address], 11/17/2022 18:40:51 11/17/19 23 11/17/2022 urina lysis , dipst ick Unknown Analyte 0.2 E.U./d L Not Available leena lee [address], [place], [address], 11/17/2022 18:40:51 11/17/19 23 11/17/2022 urina lysis , dipst ick Unknown Analyte Negati ve Not Available leena lee [address], [place], [address], 11/17/2022 18:40:51 11/17/19 23 11/17/2022 urina lysis , dipst ick Unknown Analyte Negati ve Not Available leena lee [address], [place], [address], 11/17/2022 18:40:51 Result Notes None recorded. Problems Name Problem SNOMED Code Status Onset Date Resolution Date Notes Provider Name and Address Organization Details Recorded Time Insomnia 122806819 Active 2021 EDIE Rivera - [facility] 17:56:19 Depressive disorder 14776884 Active 2021 JAZMIN gaspar PA - [facility] 17:56:26 Bipolar disorder 52858929 Active 2021 JAZMIN KUMAR null, PA - [facility] 2 17:56:36 Migraine 54106828 Active 2021 JAZMIN KUMAR null, PA - [facility] 2 17:56:43 Gastroesophage al reflux disease 817122342 Active 2021 JAZMIN KUMAR null, PA - [facility] 2 17:56:49 Asthma 746627043 Active 2021 JAZMIN KUMAR null, PA - [facility] 2 17:56:57 Constipation 57294469 Active 2021 JAZMIN KUMAR null, PA - [facility] 2 17:57:06 Problem Notes None recorded. Medical Equipment None Reported. Allergies Allergen ID Allergen Name Allergen Category Reaction Reaction Severity Criticality Documentation Date Start Date Code Code System Note Provider Name and Address Organization Details Recorded Time 89839 Miralax medicatio n Not available Not available Not available 09/20/2022 94225 5 RxNorm JAZMIN KUMAR null, PA - [facility] 2 17:54:12 64738 amoxicill in medicatio n Not available Not available Not available 09/20/2022 723 RxNorm JAZMIN BRUNOEY null, PA - [facility] 2 17:54:16 65692 Product containin g penicilli n (product) medicatio n Not available Not available Not available 09/20/2022 03884 8001 SNOMED JAZMIN BRUNOEY null, PA - [facility] 2 17:54:22 11530 sulindac medicatio n Not available Not available Not available 09/20/2022 34956 RxNorm JAZMIN KUMAR null, PA - [facility] 2 17:54:29 72891 sennoside s, [facility] medicatio n Not available Not available Not available 09/20/2022 45123 RxNorm JAZMIN KUMAR null, [facility] - [facility] [...] Updated DateTime 09/20/2022 162.56 cm 35.9 kg/m2 56522.81 g JAZMIN IRIZARRY - [facility] 09/20/2022 [...] Updated DateTime 3 162.56 cm 35.9 kg/m2 58547.8 1 g 10 99 % 99 % 81 /min 20 /min 97.8 [degF] 147 mm[Hg] 98 mm[Hg] Maeve Bell PA - [facility] 3 19:44:52 Date Recorded Systolic blood pressure Diastolic blood pressure Provider Name and Address Organization Details Last Updated DateTime 11/02/2022 132 mm[Hg] 84 mm[Hg] [facility]IE [facility], [address], [place] - [facility] 11/02/2022 20:13:06 Date Recorded Body height Body mass index (BMI) Body weight Pain severity Cruz-Marcus FACES pain rating scale Oxygen saturation Oxygen saturation in Arterial blood by Pulse oximetry Heart rate Respiratory rate Body temperature Systolic blood pressure Diastolic blood pressure Provider Name and Address Organization Details Last Updated DateTime 3 162.56 cm 35.9 kg/m2 21200.8 1 g 5 97 % 97 % 95 /min 18 /min 97.9 [degF] 143 mm[Hg] 88 mm[Hg] Maeve Bell [place] - [facility] 3 18:40:21 Social History Question Answer Notes LastModified by Organizat ion Details LastModified Time Tobacco Smoking Status Former Smoker JAZMIN gaspar PA - [facility] 09/20/2022 17:57:37 What Is Your Level Of Alcohol Consumption? None [email or web address] Information not available 09/20/2022 When Did You Quit Smoking? 1-5yearssin celastcigar ette [email or web address] Information not available 09/20/2022 Do You Use Any Illicit Or Recreational Drugs? No [email or web address] Information not available 09/20/2022 Have You Recently Traveled Abroad? No [email or web address] Information not available 09/20/2022 Do You Or Have You Ever Used Any Other Forms Of Tobacco Or Nicotine? No [email or web address] Information not available 09/20/2022 Sex: Unknown Functional Status None recorded. Mental Status None recorded. Family History Relationship Description Onset Age of this Age Resolved Age Notes LastModified by Organization Details LastModified Time Father No current problems or disability [email or web address] Not available 09/20 17:57:14 Mother No current [...] SNOMED-CT Code Diagnosis ICD10 Code Diagnosis Note [id number] [facility] [address] [place] [address] 03/01/2018 19:08:03 03/01/2018 20:09:30 [id number] [facility] [address] [place] [address] 04/20/2021 11:47:11 04/20/2021 12:34:46 [id number] EDIE Robles [facility] [address] [place] [address] 09/20/2022 17:17:57 09/20/2022 18:38:19 Influenza caused by Influenza A virus 389823373 J09.X2 [id number] EDIE STEVE [facility] [address] [place] [address] 11/02/2022 19:02:21 11/02/2022 20:15:12 Dysuria 56250565 R30.0 [id number] Sanya Suárez [place] [address]_[facility] [address] [place] [address] 11/17/2022 16:39:43 11/17/2022 19:10:36 Acute urinary tract infection 149763083 N39.0 Health Concerns Section Related Observation LastModified by Organization Detai ls LastModified Time None Recorded Concern Status LastModified by Organization Details LastModified Time None Recorded Advance Directives Directive None Recorded Payers Insurance Date Sequence Insurance Name Policy Number Policy Tavarez Covered Member ID Tavarez Member ID Guarantor Name 11/17/2022 1 [facility] (MEDICAID HMO) MARY JANE Cartwright [id number] Yosvany Caregiver Notes Date Note Type Note Provider Name and Address Organization Details Recorded Time 2 text/html Sore throatReported bypatient.Notes:Pt and caregiver report cough, sore throat, congestion, fatigue x 3-4 days. Taking OTC naproxen and using albuterol as previously prescribed. Denies fever, SOB, wheezing currently. EDIE Robles [address] [place], [address], [place] - [facility] 09/20/2022 18:43:28 3 [...] or bladder issues. Sanya Suárez NP [address] [place], [address], [place] - [facility] 11/17/2022 19:08:05 OBGyn Episode No OBEpisode recorded.
[2025-02-05 08:18] LABS: MANUAL DIFF FLAG NO
[2025-02-05 08:56] LABS: Basophils Absolute Auto 0.1 X10*3/uL (0.0-0.2); Basophils Percent Auto 1.6 % (0-2); Eosinophils Absolute Auto 0.1 X10*3/uL (0.0-0.4); Eosinophils Percent Auto 2.6 % (0-4); Hematocrit 25.6 % (37.0-47.0); Hemoglobin 8.8 g/dl (12.0-16.0); Imm Gran Abs Auto 0.01 X10*3/uL (0.00-0.03); Imm Gran Pct Auto 0.3 % (0.0-0.4); Lymphocytes Absolute Auto 0.6 X10*3/uL (1.2-4.9); Lymphocytes Percent Auto 20.2 % (20-40); Mean Corpuscular HGB Conc 34.4 g/dl (31.0-35.0); Mean Corpuscular Hemoglobin 28.8 pg (27.0-33.0); Mean Corpuscular Volume 83.7 fL (80.0-98.0); Mean Platelet Volume 11.8 fL (9.4-12.3); Monocytes Absolute Auto 0.3 X10*3/uL (0.1-1.2); Monocytes Percent Auto 8.1 % (2-11); Neutrophils Absolute Auto 2.1 x10*3/uL (2.0-8.3); Neutrophils Percent Auto 67.2 % (45-73); Platelet Count 147 X10*3/uL (160-400); Red Blood Count 3.06 X10*6/uL (4.20-5.50); Red Cell Distribution Width 12.2 % (11.0-16.0); White Blood Count 3.1 X10*3/uL (4.8-10.8)
[2025-02-05 09:12] LABS: Appearance Urine Turbid; Color Urine Yellow; Glucose Urine UA Negative (Negative); Leukocyte Esterase Urine Trace (Negative); Nitrite Urine Negative (Negative); PH 5.5 (5.0-9.0); UMIC TRIGGER UA YES; Urine Blood Negative (Negative); Urine Ketones Negative (Negative); Urine Protein 300 (3+) mg/dL (Neg-Trace)
[2025-02-05 09:26] LABS: Anion Gap 12 (12-20); Blood Urea Nitrogen 25 mg/dL (9-16); Carbon Dioxide 22 mmol/L (22-29); Chloride 107 mmol/L (96-108); Estimated Glomerular Filt Rate 9; Potassium 3.3 mmol/L (3.3-5.1); Sodium 138 mmol/L (135-145)
[2025-02-05 09:31] LABS: Bacteria Urine 3+ (None Seen); Hyaline Casts Urine 0-2 /LPF (0-2); RBC Urine 0-2 /HPF (0-2); Squamous Epithelial Cell Urine >20 /HPF (0-2)
[2025-02-05 09:48] LABS: Lactate Dehydrogenase 403 U/L (122-220)
[2025-02-07 03:58] LABS: Complement C3 101 mg/dL (83-193)
== END 2025-02-05 07:54 | disposition home or self-care (01) ==
LOC: HO.LAB 07:53
PROVIDERS: PCP Internal Medicine; Visit Provider Internal Medicine Nephrology
DX: D59.39 Other hemolytic-uremic syndrome (principal)
CPT/HCPCS: 36415; 80051; 81001; 82565; 83615; 84520; 85025; 86160

== ENCOUNTER 2025-02-13 15:53 | Outpatient (REF) | payer OTHER, SELFPAY ==
--- OUTSIDE RECORDS SUMMARY | 2025-02-13 16:08 | XMS_ITS | Data Portability ---
Author Organization EDIE [facility] Address [address] [place] [address] Care Team Providers Care Drafter Name Role Phone DANTE MARTINES Primary Care Provider Assessment No assessment recorded. Plan of Treatment Reminders Order Date Submit Date Provider Last Modified By Organization Details Last Modified Time Details Appointments None recorded. Lab urinalysis , dipstick 2022 023 [email or web address] [facility], [address] [place] [address], [address], 3 19:07:26 test, urine 2022 023 [email or web address] _[facility], [address] [place] [address], [address], 3 19:07:26 culture, urine 2022 023 [email or web address] [facility], [address] [place] [address], [place], [address], 3 19:39:46 urinalysis , dipstick 2022 023 [email or web address] [facility], [address] [place] [address], [address], 3 20:12:31 test, urine 2022 023 [email or web address] [facility], [address] [place] [address], [address], 3 20:12:31 culture, urine 2022 023 [email or web address], [address] [place] [address], [place], [address], 3 15:51:57 rapid strep group A, throat 2021 022 5 _[facility], [address] [place] [address], [address], 2 18:30:46 rapid flu (A+B) 2021 022 [email or web address] 5 _[facility], [address] [place] [address], [place], [address], 2 18:30:46 rapid SARS CoV 2 Ag, QL IA, respirator y specimen 2021 022 [email or web address] 5 _[facility], [address] [place] [address], [place], [address], 2 18:30:46 Referral None recorded. Procedures None recorded. Surgeries None recorded. Imaging None recorded. Medication Orders Macrobid 100 mg capsule 2022 023 [id number], [address] [facility], [place], [address], 3 19:07:28 nitrofuran toin monohydrat e/macrocry stals 100 mg capsule 2022 023 kevin [facility]/Pharmacy #[id number], [address] [facility], [place], [address], 3 18:28:08 acetaminop hen 325 mg tablet 2021 022 [facility][id number], [address] [facility] [facility], [place], [address], 2 18:43:07 Patient TargetsNo targets recorded. Patient Instructions Encounter Date Encounter Id Patient Instructions Last Modified By Organization Details Last Modified Time 09/20/2022 [id number] sore throat: rody pate instructions [email or web address] Not available 09/20/2022 18:30:46 Go to the [facility] emergency department if you develop [...] without a prescription. Drink plenty of water. [email or web address] Not available 09/20/2022 18:25:38 11/02/2022 [id number] urinary tract infection in women information [email or web address] Not available 11/02/2022 20:12:31 You are going [...] antibiotic was prescribed. Thank you for using [facility] - please don't hesistate to call our office if you have any questions or concerns. [email or web address] Not available 11/02/2022 20:12:18 11/17/2022 [id number] We recommend you get a repeat urinalysis [...] men Unknown Analyte negati ve Not Available [address], [address], 09/20/2022 17:57:52 09/20/20 22 09/20/2022 rapid strep group A, throa t Unknown Analyte negati ve Not Available [address] [place] [address], [address], 09/20/2022 17:52:10 09/20/20 22 09/20/2022 rapid flu (A+B) Unknown Analyte positi ve Not Available [address] [place] [address], [address], 09/20/2022 17:57:47 09/20/20 22 09/20/2022 rapid flu (A+B) Unknown Analyte negati ve Not Available [address] [place] [address], [address], 09/20/2022 17:57:47 11/02/19 23 11/02/2022 pregn angela test, urine Unknown Analyte Normal = Negati ve Not Available 2099leena lee [address], [place], [address], 11/02/2022 20:03:07 11/02/19 23 11/02/2022 pregn angela test, urine Unknown Analyte negati ve Not Available 2099leena lee [address], [place], [address], 11/02/2022 20:03:07 11/02/19 23 11/02/2022 urina lysis , dipst ick Unknown Analyte Normal = light yellow Not Available 2099leena lee [address], [place], [address], 11/02/2022 19:48:57 11/02/1911/02/2022 urina lysis , dipst ick Unknown Analyte Light Yellow Not Available 2099leena lee [address], [place], [address], 11/02/2022 19:48:57 11/02/19 23 11/02/2022 urina lysis , dipst ick Unknown Analyte Normal = clear Not Available leena lee [address], [place], [place], [address], 11/02/2022 19:48:57 11/02/19 23 11/02/2022 urina lysis , dipst ick Unknown Analyte Clear Not Available [address], [place], [place], [address], 11/02/2022 19:48:57 11/02/19 23 11/02/2022 urina lysis , dipst ick Unknown Analyte Normal = negati ve Not Available leena lee [address], [place], [place], [address], 11/02/2022 19:48:57 11/02/19 23 11/02/2022 urina lysis , dipst ick Unknown Analyte Negati ve Not Available 2099leena lee [address], [place], [address], 11/02/2022 19:48:57 11/02/19 23 11/02/2022 urina lysis , dipst ick Unknown Analyte Normal = Negati ve Not Available 2099leena [address], [place], [address], 11/02/2022 19:48:57 11/02/1911/02/2022 urina lysis , dipst ick Unknown Analyte Negati ve Not Available [facility] [address], [place], [address], 11/02/2022 19:48:57 11/02/19 23 11/02/2022 urina lysis , dipst ick Unknown Analyte Normal = Negati ve Not Available leena [address], [place], [address], 11/02/2022 19:48:57 11/02/1911/02/2022 urina lysis , dipst ick Unknown Analyte Negati ve Not Available leena [address], [place], [address], 11/02/2022 19:48:57 11/02/19 23 11/02/2022 urina lysis , dipst ick Unknown Analyte Normal = 1.010, 1.015, 1.020 Not Available [facility] [address], [place], [address], 11/02/2022 19:48:57 11/02/19 23 11/02/2022 urina lysis , dipst ick Unknown Analyte 1.020 Not Available [address] [place] [address] Drive, [place], [address], 11/02/2022 19:48:57 11/02/1911/02/2022 urina lysis , dipst ick Unknown Analyte Normal = Negati ve Not Available leena lee [address]em[address], [place], [address], 11/02/2022 19:48:57 11/02/19 23 11/02/2022 urina lysis , dipst ick Unknown Analyte Negati ve Not Available leena pe emem[address], [place], [address], 11/02/2022 19:48:57 11/02/1911/02/2022 urina lysis , dipst ick Unknown Analyte Normal = 6.5, 7.0, 7.5, 8.0 Not Available leena lee [address]em[address], [place], [address], 11/02/2022 19:48:57 11/02/19 23 11/02/2022 urina lysis , dipst ick Unknown Analyte 6.5 Not Available thelma [address], [place], [address], 11/02/2022 19:48:57 11/02/1911/02/2022 urina lysis , dipst ick Unknown Analyte Normal = Negati ve Not Available [facility]ena pe [facility], [place], [address], 11/02/2022 19:48:57 11/02/1911/02/2022 urina lysis , dipst ick Unknown Analyte Negati ve Not Available leena pe emem[address], [place], [address], 11/02/2022 19:48:57 02/10/21 2211/02/2022 urina lysis , dipst ick Unknown Analyte Normal = 0.2, 1.0 Not Available leena lee [address], [place], [address], 11/02/2022 19:48:57 11/02/19 23 11/02/2022 urina lysis , dipst ick Unknown Analyte 0.2 E.U./d L Not Available [facility] [address], [place], [address], 11/02/2022 19:48:57 11/02/1911/02/2022 urina lysis , dipst ick Unknown Analyte Normal = Negati ve Not Available [facility] [address], [place], [place], [address], 11/02/2022 19:48:57 11/02/1911/02/2022 urina lysis , dipst ick Unknown Analyte Negati ve Not Available leena [address], [place], [address], 11/02/2022 19:48:57 11/02/1911/02/2022 urina lysis , dipst ick Unknown Analyte Normal = Negati ve Not Available [facility] [address], [place], [address], 11/02/2022 19:48:57 11/02/1911/02/2022 urina lysis , dipst ick Unknown Analyte Negati ve Not Available [address], [place], [address], 11/02/2022 19:48:57 11/17/19 23 11/17/2022 pregn angela test, urine Unknown Analyte Normal = Negati ve Not Available [address], [place], [address], 11/17/2022 18:41:03 11/17/19 23 11/17/2022 pregn angela test, urine Unknown Analyte negati ve Not Available [facility] [address], [place], [address], 11/17/2022 18:41:03 11/17/19 23 11/17/2022 urina lysis , dipst ick Unknown Analyte Normal = light yellow Not Available [address] [place] [address], [place], [address], 11/17/2022 18:40:51 11/17/19 23 11/17/2022 urina lysis , dipst ick Unknown Analyte Normal = clear Not Available [address], [place], [address], 11/17/2022 18:40:51 11/17/19 23 11/17/2022 urina lysis , dipst ick Unknown Analyte Normal = negati ve Not Available [address], [place], [address], 11/17/2022 18:40:51 11/17/19 23 11/17/2022 urina lysis , dipst ick Unknown Analyte Normal = Negati ve Not Available [address], [place], [address], 11/17/2022 18:40:51 11/17/19 23 11/17/2022 urina lysis , dipst ick Unknown Analyte Normal = Negati ve Not Available [address], [place], [address], 11/17/2022 18:40:51 11/17/19 23 11/17/2022 urina lysis , dipst ick Unknown Analyte Normal = 1.010, 1.015, 1.020 Not Available leena lee em[address], [place], [address], 11/17/2022 18:40:51 11/17/19 23 11/17/2022 urina lysis , dipst ick Unknown Analyte Normal = Negati ve Not Available [facility] [address], [place], [address], 11/17/2022 18:40:51 11/17/19 23 11/17/2022 urina lysis , dipst ick Unknown Analyte Normal = 6.5, 7.0, 7.5, 8.0 Not Available 2099leena lee [address], [place], [address], 11/17/2022 18:40:51 11/17/19 23 11/17/2022 urina lysis , dipst ick Unknown Analyte Normal = Negati ve Not Available [facility] [address], [place], [address], 11/17/2022 18:40:51 11/17/19 23 11/17/2022 urina lysis , dipst ick Unknown Analyte Normal = 0.2, 1.0 Not Available [facility] [address], [place], [address], 11/17/2022 18:40:51 11/17/19 23 11/17/2022 urina lysis , dipst ick Unknown Analyte Normal = Negati ve Not Available 2099leena lee [address], [place], [address], 11/17/2022 18:40:51 11/17/19 23 11/17/2022 urina lysis , dipst ick Unknown Analyte Normal = Negati ve Not Available [facility] [address], [place], [address], 11/17/2022 18:40:51 11/17/19 23 11/17/2022 urina lysis , dipst ick Unknown Analyte Yellow Not Available thelma [address], [place], [address], 11/17/2022 18:40:51 11/17/19 23 11/17/2022 urina lysis , dipst ick Unknown Analyte Clear Not Available thelma [address], [place], [address], 11/17/2022 18:40:51 11/17/19 23 11/17/2022 urina lysis , dipst ick Unknown Analyte Negati ve Not Available leena lee [address], [place], [address], 11/17/2022 18:40:51 11/17/19 23 11/17/2022 urina lysis , dipst ick Unknown Analyte Negati ve Not Available leena lee [address], [place], [address], 11/17/2022 18:40:51 11/17/19 23 11/17/2022 urina lysis , dipst ick Unknown Analyte Negati ve Not Available leena lee [address], [place], [address], 11/17/2022 18:40:51 11/17/19 23 11/17/2022 urina lysis , dipst ick Unknown Analyte 1.020 Not Available thelma [address], [place], [place], [address], 11/17/2022 18:40:51 11/17/19 23 11/17/2022 urina lysis , dipst ick Unknown Analyte Negati ve Not Available leena lee [address], [place], [place], [address], 11/17/2022 18:40:51 11/17/19 23 11/17/2022 urina lysis , dipst ick Unknown Analyte 7.0 Not Available thelma [address], [place], [address], 11/17/2022 18:40:51 11/17/19 23 11/17/2022 urina lysis , dipst ick Unknown Analyte Negati ve Not Available leena lee [address], [place], [address], 11/17/2022 18:40:51 11/17/19 23 11/17/2022 urina lysis , dipst ick Unknown Analyte 0.2 E.U./d L Not Available leena lee [address], [place], [address], 11/17/2022 18:40:51 11/17/19 23 11/17/2022 urina lysis , dipst ick Unknown Analyte Negati ve Not Available leena lee [address], [place], [address], 11/17/2022 18:40:51 11/17/19 23 11/17/2022 urina lysis , dipst ick Unknown Analyte Negati ve Not Available leena lee [address], [place], [address], 11/17/2022 18:40:51 Result Notes None recorded. Problems Name Problem SNOMED Code Status Onset Date Resolution Date Notes Provider Name and Address Organization Details Recorded Time Insomnia 127792428 Active 2021 EDIE Rivera - [facility] 17:56:19 Depressive disorder 66463056 Active 2021 JAZMIN gaspar PA - [facility] 17:56:26 Bipolar disorder 79602482 Active 2021 JAZMIN KUMAR null, PA - [facility] 2 17:56:36 Migraine 92073171 Active 2021 JAZMIN KUMAR null, PA - [facility] 2 17:56:43 Gastroesophage al reflux disease 465898585 Active 2021 JAZMIN KUMAR null, PA - [facility] 2 17:56:49 Asthma 512844865 Active 2021 JAZMIN KUMAR null, PA - [facility] 2 17:56:57 Constipation 75545858 Active 2021 JAZMIN KUMAR null, PA - [facility] 2 17:57:06 Problem Notes None recorded. Medical Equipment None Reported. Allergies Allergen ID Allergen Name Allergen Category Reaction Reaction Severity Criticality Documentation Date Start Date Code Code System Note Provider Name and Address Organization Details Recorded Time 43709 Miralax medicatio n Not available Not available Not available 09/20/2022 26831 5 RxNorm JAZMIN KUMAR null, PA - [facility] 2 17:54:12 21059 amoxicill in medicatio n Not available Not available Not available 09/20/2022 723 RxNorm JAZMIN BRUNOEY null, PA - [facility] 2 17:54:16 23009 Product containin g penicilli n (product) medicatio n Not available Not available Not available 09/20/2022 24418 8001 SNOMED JAZMIN BRUNOEY null, PA - [facility] 2 17:54:22 86803 sulindac medicatio n Not available Not available Not available 09/20/2022 87324 RxNorm JAZMIN KUMAR null, PA - [facility] 2 17:54:29 44395 sennoside s, PENITENTIARY medicatio n Not available Not available Not available 09/20/2022 09162 RxNorm JAZMIN KUMAR null, [facility] - [facility] [...] Updated DateTime 09/20/2022 162.56 cm 35.9 kg/m2 88389.81 g JAZMIN IRIZARRY - [facility] 09/20/2022 [...] Updated DateTime 3 162.56 cm 35.9 kg/m2 46416.8 1 g 10 99 % 99 % 81 /min 20 /min 97.8 [degF] 147 mm[Hg] 98 mm[Hg] Maevebeata Dorseykeara PA - [facility] 3 19:44:52 Date Recorded Systolic blood pressure Diastolic blood pressure Provider Name and Address Organization Details Last Updated DateTime 11/02/2022 132 mm[Hg] 84 mm[Hg] EDIE STEVE [facility] For[facility] TrejoValeriaDARRIUS [place], [address], [place] - [facility] 11/02/2022 20:13:06 Date Recorded Body height Body mass index (BMI) Body weight Pain severity Cruz-Marcus FACES pain rating scale Oxygen saturation Oxygen saturation in Arterial blood by Pulse oximetry Heart rate Respiratory rate Body temperature Systolic blood pressure Diastolic blood pressure Provider Name and Address Organization Details Last Updated DateTime 3 162.56 cm 35.9 kg/m2 07663.8 1 g 5 97 % 97 % 95 /min 18 /min 97.9 [degF] 143 mm[Hg] 88 mm[Hg] Maeve Bell PA - [facility] 3 18:40:21 Social History Question Answer Notes LastModified by [email or web address] Details LastModified Time Tobacco Smoking Status Former Smoker JAZMIN gaspar PA - [facility] 09/20/2022 17:57:37 When Did You Quit Smoking? 1-5yearssinc elastcigaret te [email or web address] Information not available 09/20/2022 Have You Recently Traveled Abroad? No [email or web address] Information not available 09/20/2022 Sex: Unknown Functional Status Question Answer Note LastModified by Organizat ion Details LastModified Time Do you use any illicit or recreational drugs? No [email or web address] Information not available 09/20/2022 Do you or have you ever used any other forms of tobacco or nicotine? No [email or web address] Information not available 09/20/2022 What is your level of alcohol consumption? None [email or web address] Information not available 09/20/2022 Mental Status None recorded. Family History Relationship Description Onset Age of this Age Resolved Age Notes LastModified by Organization Details LastModified Time Father No current problems or disability [email or web address] Not available 09/20 17:57:14 Mother No current problems or disability [email or web address] Not available 09/20 17:57:14 Medical History No [...] SNOMED-CT Code Diagnosis ICD10 Code Diagnosis Note [id number] [facility] [address] [place] [address] 03/01/2018 19:08:03 03/01/2018 20:09:30 [id number] [facility] [address] [place] [address] 04/20/2021 11:47:11 04/20/2021 12:34:46 [id number] EDIE Robles [facility] [address] [place] [address] 09/20/2022 17:17:57 09/20/2022 18:38:19 Influenza caused by Influenza A virus 591133548 J09.X2 [id number] EDIE STEVE [address] [address] [address] 11/02/2022 19:02:21 11/02/2022 20:15:12 Dysuria 92518549 R30.0 [id number] Sanya Suárez [place] [address]_[facility] [address] [address] 11/17/2022 16:39:43 11/17/2022 19:10:36 Acute urinary tract infection 267988298 N39.0 Health Concerns Section Related Observation LastModified by Organization Detai ls LastModified Time None Recorded Concern Status LastModified by Organization Details LastModified Time None Recorded Advance Directives Directive None Recorded Payers Insurance Date Sequence Insurance Name Policy Number Policy Tavarez Covered Member ID Tavarez Member ID Guarantor Name 11/17/2022 1 [facility] [place]MEDICAID HMO) MARY JANE Cartwright [id number] Yosvany Caregiver Notes Date Note Type Note Provider Name and Address Organization Details Recorded Time 2 text/html Sore throatReported bypatient.Notes:Pt and caregiver report cough, sore throat, congestion, fatigue x 3-4 days. Taking OTC naproxen and using albuterol as previously prescribed. Denies fever, SOB, wheezing currently. EDIE Robles [address] [place], [address], [place] - [facility] 09/20/2022 18:43:28 3 [...] bladder issues. Sanya Suárez NP [address] [place], [address], [place] - [facility] 11/17/2022 19:08:05 OBGyn Episode No OBEpisode recorded.
--- OUTSIDE RECORDS SUMMARY | 2025-02-13 16:08 | XMS_ITS | Clinical Summary ---
Author Organization [employer] it Address [address] [place] [address] Care Team Providers Care Director Of Strategic Marketing Name Role Phone Fernandez Tyler MD Primary Care Provider [phone] Surgical History Surgery Date Site/Laterality Comments BREAST [...] age to complete this topic Care Teams Director Of Strategic Marketing Relationship Specialty Start Date End Date Fernandez Tyler MD [address] [place] [address] Drive [address] [place] [address] PCP - General Internal Medicine 03/19/14
[2025-02-13 17:15] LABS: Monocytes Absolute Auto 0.4 X10*3/uL (0.1-1.2); PLT CLUMP 1; SCAN SMEAR FLAG 1
[2025-02-13 17:17] LABS: Basophils Absolute Auto 0.1 X10*3/uL (0.0-0.2); Basophils Percent Auto 1.4 % (0-2); Eosinophils Absolute Auto 0.1 X10*3/uL (0.0-0.4); Eosinophils Percent Auto 1.4 % (0-4); Hematocrit 23.2 % (37.0-47.0); Imm Gran Abs Auto 0.02 X10*3/uL (0.00-0.03); Imm Gran Pct Auto 0.5 % (0.0-0.4); Lymphocytes Absolute Auto 0.7 X10*3/uL (1.2-4.9); Lymphocytes Percent Auto 19.5 % (20-40); MANUAL DIFF FLAG SCAN; Mean Corpuscular HGB Conc 34.5 g/dl (31.0-35.0); Mean Corpuscular Hemoglobin 28.6 pg (27.0-33.0); Mean Corpuscular Volume 82.9 fL (80.0-98.0); Mean Platelet Volume 11.3 fL (9.4-12.3); Neutrophils Absolute Auto 2.5 x10*3/uL (2.0-8.3); Neutrophils Percent Auto 67.2 % (45-73); Red Cell Distribution Width 12.5 % (11.0-16.0)
[2025-02-13 17:38] LABS: Platelet Count 135 X10*3/uL (160-400); White Blood Count 3.9 X10*3/uL (4.8-10.8)
[2025-02-13 17:39] LABS: SLIDE REVIEW VERIFIED
[2025-02-13 17:42] LABS: Appearance Urine Cloudy; Color Urine Yellow; Glucose Urine UA Negative (Negative); Leukocyte Esterase Urine Negative (Negative); Nitrite Urine Negative (Negative); Specific Gravity - Urine 1.015 (1.005-1.025); UMIC TRIGGER UA YES; Urine Blood Negative (Negative); Urine Ketones Negative (Negative); Urine Protein 300 (3+) mg/dL (Neg-Trace)
[2025-02-13 17:52] LABS: Bacteria Urine 2+ (None Seen); Hyaline Casts Urine 0-2 /LPF (0-2); RBC Urine 0-2 /HPF (0-2); Squamous Epithelial Cell Urine >20 /HPF (0-2)
[2025-02-13 18:16] LABS: Alanine Aminotransferase 7 U/L (0-31); Anion Gap 13 (12-20); Aspartate Amino Transferase 9 U/L (5-31); Bilirubin Total 0.2 mg/dL (0.0-1.0); Blood Urea Nitrogen 22 mg/dL (9-16); Calcium 8.9 mg/dL (8.4-10.2); Carbon Dioxide 24 mmol/L (22-29); Chloride 111 mmol/L (96-108); Iron 63 mcg/dL (30-160); Percent Iron Saturation 30 % (15-50); Potassium 3.7 mmol/L (3.3-5.1); Sodium 144 mmol/L (135-145); Total Iron Binding Capacity 210 mcg/dL (228-428); Unsaturated Iron Binding 147 ug/dL
[2025-02-13 18:18] LABS: Lactate Dehydrogenase 395 U/L (122-220)
[2025-02-13 18:19] LABS: Estimated Glomerular Filt Rate 13
[2025-02-13 18:27] LABS: Ferritin 507 ng/mL (10-122)
[2025-02-13 18:39] LABS: Protein/Creatinine Ratio, Ur 1.28 (<0.2); Total Protein Urine Random 200 mg/dL (<12)
[2025-02-14 10:38] LABS: Complement C3 103 mg/dL (83-193)
== END 2025-02-13 15:54 | disposition home or self-care (01) ==
LOC: HO.LAB 15:53
PROVIDERS: PCP Internal Medicine; Visit Provider Internal Medicine Nephrology
DX: D59.39 Other hemolytic-uremic syndrome (principal)
CPT/HCPCS: 36415; 80051; 81001; 82040; 82247; 82310; 82565; 82570; 82728; 83540; 83615; 84156; 84450; 84460; 84520; 85025; 86160

== ENCOUNTER 2025-02-14 15:47 | Outpatient (AMB) | payer OTHER, SELFPAY ==
--- OUTSIDE RECORDS SUMMARY | 2025-02-14 15:49 | XMS_ITS | Clinical Summary ---
Author Organization [employer] it Address [address] [place] [address] Care Team Providers Care Tailer In Name Role Phone Fernandez Tyler MD Primary Care Provider [phone] Surgical History Surgery Date Site/Laterality Comments BREAST [...] age to complete this topic Care Teams Tailer In Relationship Specialty Start Date End Date Fernandez Tyler MD [address] [place] [address] Drive [address] [place] [address] PCP - General Internal Medicine 03/19/14
--- NOTE | 2025-02-14 15:53 | HO.NEPHOV_ITS ---
Vital Signs 02/14/25 15:59 Height 5 ft 3 in Weight 211 lb BMI 37.4 BP 150/110 H Blood Pressure Location Rt brachial Position Sitting Intake Visit Reasons: 2 weeks fu-Conf Checker Product Design Required: No Accompanied by: Other Relationship Allergies amoxicillin [AMOXICILLIN] Allergy (Severe, Verified 02/14/25 15:58) ANAPHYLAXIS, swelling Penicillins [PENICILLINS] Allergy (Severe, Verified 02/14/25 15:58) ANAPHYLAXIS polyethylene glycol 3350 [From MIRALAX] Allergy (Severe, Verified 02/14/25 15:58) ANAPHYLAXIS sulindac [SULINDAC] Allergy (Severe, Verified 02/14/25 15:58) SWELLING senna Allergy (Intermediate, Verified 02/14/25 15:58) Unknown seafood Allergy (Verified 02/14/25 15:58) Hives HPI Comments Details: 35-year-old female with pertinent history of mood disorder, gastroesophageal reflux disease, mild intellectual disability, hypertension recently presented to the emergency department for evaluation of nausea and vomiting. She had been having nausea and multiple episodes of nonbloody emesis throughout the day prior to presentation. She also has been having abdominal discomfort at that time which is generalized, constant, not related to food intake, nonradiating, nonpr ogressive and without any relieving factors. Patient had not been taking her p.o. antihypertensives for the last few days. She had reduced p.o. intake as she is unable to hold anything down due to nausea and vomiting. She denied fever, chills or diarrhea. She has no palpitation, shortness of breath, changes in urinary habits. She has no history of diabetes mellitus, palpitation, orthostasis. Her renal function had been getting worse and now has been having worsening proteinuria. She denied using drugs other than Marijuana. She does not takes nonsteroidal anti-inflammatories regularly. 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 Her mental status was at baseline. She was transferred [place] [facility]cul[place]. 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 She had acute hypoxic respiratory failure in hospital with worsening renal function. She responded well to diuresis. She had elevated LDH, thrombocytopenia, decreased haptoglobin with schistocytes on peripheral smear. ADAMTS 13 was negative. Had her femoral HD catheter removed on 01/10/2025. Did not have any renal biopsy. She had steroids and was started on Eculizumab 900 mg weekly for 4 weeks ( 01/06/25, 01/13/25, 01/20/25 and 4th dose given this week). Received meningococcal vaccination and was started on Azithromycin 500 mg daily for 2 weeks ( penicillin allergy) while on eculizumab. She continues to have good urine output. Her GFR has improved. She has no edema or any other symptoms other than nausea at times. Her appetite is good and denies any SOB, PND, orthopnea or any uremic symptoms. She had hypertensive emergency during hospital stay which improved with medications. She has been having difficulties in blood draws and medication administration due to poor veins and was wondering whether she can have a port a cath inserted. [facility] Medical History Possible exposure to STD Breast mass, right Morbid obesity with BMI of 40.0-44.9, adult Hypertension Annual visit for general adult medical examination with abnormal findings Heart murmur, systolic Breast pain Right Achilles tendinitis Erythema intertrigo External hemorrhoids Bleeding hemorrhoids Vitamin D deficiency Heel callus Mild intermittent asthma in adult without complication Ex-cigarette smoker Motion sickness Mild intellectual disability Porcelain gallbladder Migraine Depression with anxiety Dysmenorrhea 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 Brother No problems noted. Brother No problems noted. 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 Cognitive needs: No Hearing needs: No Vision needs: Yes Female Reproductive History Menstrual Age of Menarche: 13 Review of Systems Const All systems reviewed & are unremarkable except as noted in HPI and below Physical Exam Vital Signs: Last Vital Signs BP 150/110 H 02/14/25 15:59 BMI result Body Mass Index 37.4 Const General: comfortable and no acute distress Orientation/consciousness: patient oriented x3 HEENT Head: Yes normocephalic Mouth: Normal oral and palatal mucosa present Eyes EOM: EOMs intact bilaterally Neck Neck: Yes supple Resp Auscultation: clear to auscultation bilaterally Cardio Jugular venous distension: no JVD Rate: regular rate GI Palpation (GI): Soft to palpation Auscultation: normal bowel sounds General: Yes no CVA tenderness Back/Spine/Pelvis Back: no CVA tenderness Skin General skin exam: no rashes or lesions noted Neuro General: patient oriented x3 and moves all extremities Extrem General: Yes no pedal edema Results Reviewed Nephrology Results: Hgb 8.0 g/dl (12.0-16.0) L 02/13/25 WBC 3.9 X10*3/uL (4.8-10.8) L 02/13/25 Plt Count 135 X10*3/uL (160-400) L 02/13/25 Sodium 144 mmol/L (135-145) 02/13/25 Potassium 3.7 mmol/L (3.3-5.1) 02/13/25 Chloride 111 mmol/L (96-108) H 02/13/25 Carbon Dioxide 24 mmol/L (22-29) 02/13/25 BUN 22 mg/dL (9-16) H 02/13/25 Creatinine 4.07 mg/dL (0.5-1.4) H* 02/13/25 Calcium 8.9 mg/dL (8.4-10.2) 02/13/25 Urine Protein 300 (3+) mg/dL (Neg-Trace) H 02/13/25 Urine Creatinine 156.70 mg/dL 02/13/25 Protein/Creatinin Ratio 1.28 (<0.2) H 02/13/25 Assessment & Plan Assessment & Plan (1) Atypical hemolytic uremic syndrome: Code(s): D5.39 - Other hemolytic-uremic syndrome Category: Medical (2) PEYTON (acute kidney injury): Code(s): N17.9 - Acute kidney failure, unspecified Category: Medical (3) Hypertension: Code(s): I10 - Essential (primary) hypertension Category: Medical Qualifiers: Hypertension type: primary hypertension Qualified Code(s): I10 - Essential (primary) hypertension (4) Proteinuria: Code(s): R80.9 - Proteinuria, unspecified Category: Medical Qualifiers: Proteinuria type: other Qualified Code(s): R80.8 - Other proteinuria Plan She had worsening of renal function with drop in her platelet count 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 She was transferred [place] [facility]. 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 She had acute hypoxic respiratory failure in hospital with worsening renal function. She responded well to diuresis. She had elevated LDH, thrombocytopenia, decreased haptoglobin with schistocytes on peripheral smear. ADAMTS 13 was negative. Had her femoral HD catheter removed on 01/10/2025. Did not have any renal biopsy. She had steroids and was started on Eculizumab 900 mg weekly for 4 weeks ( 01/06/25, 01/13/25, 01/20/25 and 4th dose was given this week). Received meningococcal vaccination and was started on Azithromycin 500 mg daily for 2 weeks ( penicillin allergy) while on eculizumab. She continues to have good urine output. Her GFR is improving. She has no edema or any other symptoms other than nausea at times. Her appetite is good and denies any SOB, PND, orthopnea or any uremic symptoms. She had hypertensive emergency during hospital stay which improved with medications. I increased her NIfedipine to 60 mg bid. I have arranged further doses of Eculizumab in [facility] [place] every 2 weeks. I also have ordered a piter cath placement by IR. Time spent for co ordinating care, visit, documentation 45 minutes. Follow up labs ordered & F/U appointment given Orders: Orders IRON PROFILE 2 Weeks D59.39 - Other hemolytic-uremic syndrome Creatinine 2 Weeks D59.39 - Other hemolytic-uremic syndrome Blood Urea Nitrogen 2 Weeks D59.39 - Other hemolytic-uremic syndrome Complete Blood Count Auto Diff 2 Weeks D59.39 - Other hemolytic-uremic syndrome Ferritin 2 Weeks D59.39 - Other hemolytic-uremic syndrome Electrolytes 2 Weeks D5.39 - Other hemolytic-uremic syndrome IR cvc insert tunnel w prt/marklogic developer 02/14/25. - Other hemolytic-uremic syndrome Medications: Changed From labetalol 300 mg See Protocol PO TID To labetalol 300 mg See Protocol PO TID 90 days 270 tabs 4RF From nifedipine ER 60 mg See Protocol PO BID To nifedipine ER 60 mg See Protocol PO BID 90 days 180 tabs 4RF Coding Level of Care Code Est Pt Level 5 (72113) Diagnoses Atypical hemolytic uremic syndrome D5. PEYTON (acute kidney injury) N17.9 Primary hypertension I10 Hypertension type: primary hypertension Other proteinuria R80.8 Proteinuria type: other
[2025-02-14 15:59] VITALS: BP 150/110; BMI 37.4
== END 2025-02-14 16:29 | disposition home or self-care (01) ==
LOC: HO.HKA 15:48
PROVIDERS: PCP Internal Medicine; Visit Provider Internal Medicine Nephrology
DX: D59.39 Other hemolytic-uremic syndrome (principal); N17.9 Acute kidney failure, unspecified; I10 Essential (primary) hypertension; R80.8 Other proteinuria
CPT/HCPCS: 99215

== ENCOUNTER → 2025-02-14 15:47 | Outpatient (BNVA) | payer OTHER, SELFPAY | PROVIDERS: PCP Internal Medicine; Visit Provider Internal Medicine Nephrology | DX: D59.39 Other hemolytic-uremic syndrome (principal); N17.9 Acute kidney failure, unspecified; I10 Essential (primary) hypertension; R80.8 Other proteinuria | CPT/HCPCS: 99212 ==

== ENCOUNTER 2025-02-25 16:01 | Outpatient (REF) | payer OTHER, SELFPAY ==
--- OUTSIDE RECORDS SUMMARY | 2025-02-25 16:04 | XMS_ITS | Data Portability ---
Author Organization [facility]IE [facility] Address [address] [place] [address] Care Team Providers Care Aging Department Supervisor Name Role Phone DANTE MARTINES Primary Care Provider Assessment No assessment recorded. Plan of Treatment Reminders Order Date Submit Date Provider Last Modified By Organization Details Last Modified Time Details Appointments None recorded. Lab urinalysis , dipstick 2022 023 [email or web address] [facility], [address] [place] [address], [address], 3 19:07:26 test, urine 2022 023 [email or web address] _[facility], [address] [place] [address], [address], 3 19:07:26 culture, urine 2022 023 [email or web address] [facility], [address] [place] [address], [place], [address], 3 19:39:46 urinalysis , dipstick 2022 023 [facility], [address] [place] [address], [address], 3 20:12:31 test, urine 2022 023 [facility], [address] [place] [address], [address], 3 20:12:31 culture, urine 2022 [email or web address] ([facility], [address] [place] [address], [place], [address], 3 15:51:57 rapid strep group A, throat 2021 022 [email or web address] 5 _[facility], [address] [place] [address], [address], 2 18:30:46 rapid flu (A+B) 2021 022 [email or web address] 5 _[facility], [address] [place] [address], [place], [address], 2 18:30:46 rapid SARS CoV 2 Ag, QL IA, respirator y specimen 2021 022 [email or web address] 5 _[facility], [address] [place] [address], [place], [address], 2 18:30:46 Referral None recorded. Procedures None recorded. Surgeries None recorded. Imaging None recorded. Medication Orders Macrobid [address] [facility] #[id number], [address] [place], [place], [address], 3 19:07:28 nitrofuran toin monohydrat e/macrocry stals 100 mg capsule 2022 023 kevin [facility]/Pharmacy #[id number], [address] [place], [place], [address], 3 18:28:08 acetaminop hen 325 mg tablet [address] [facility] #2339, [address] [place], [place], [address], 2 18:43:07 Patient TargetsNo targets recorded. Patient Instructions Encounter Date Encounter Id Patient Instructions Last Modified By Organization Details Last Modified Time 09/20/2022 [id number] sore throat: rody pate instructions [email or web address] Not available 09/20/2022 18:30:46 Go to the [facility] emergency department if you [...] without a prescription. Drink plenty of water. [email or web address] Not available 09/20/2022 18:25:38 11/02/2022 [id number] urinary tract infection in women information Not [...] antibiotic was prescribed. Thank you for using [employer] - please don't hesistate to call our office if you have any questions or concerns. [email or web address] Not available 11/02/2022 20:12:18 11/17/2022 [id number] We recommend you get a repeat urinalysis [...] men Unknown Analyte negati ve Not Available [address], [address], 09/20/2022 17:57:52 09/20/20 22 09/20/2022 rapid strep group A, throa t Unknown Analyte negati ve Not Available [address] [place] [address], [address], 09/20/2022 17:52:10 09/20/20 22 09/20/2022 rapid flu (A+B) Unknown Analyte positi ve Not Available [address] [place] [address], [address], 09/20/2022 17:57:47 09/20/20 22 09/20/2022 rapid flu (A+B) Unknown Analyte negati ve Not Available [address] [place] [address], [address], 09/20/2022 17:57:47 11/02/19 23 11/02/2022 pregn angela test, urine Unknown Analyte Normal = Negati ve Not Available 2099leena lee [address], [place], [address], 11/02/2022 20:03:07 11/02/19 23 11/02/2022 pregn angela test, urine Unknown Analyte negati ve Not Available 2099leena lee [address], [place], [address], 11/02/2022 20:03:07 11/02/19 23 11/02/2022 urina lysis , dipst ick Unknown Analyte Normal = light yellow Not Available 2099leena lee [address], [place], [address], 11/02/2022 19:48:57 11/02/1911/02/2022 urina lysis , dipst ick Unknown Analyte Light Yellow Not Available 2099leena lee [address], [place], [address], 11/02/2022 19:48:57 11/02/19 23 11/02/2022 urina lysis , dipst ick Unknown Analyte Normal = clear Not Available leena lee [address], [place], [place], [address], 11/02/2022 19:48:57 11/02/19 23 11/02/2022 urina lysis , dipst ick Unknown Analyte Clear Not Available [address], [place], [place], [address], 11/02/2022 19:48:57 11/02/19 23 11/02/2022 urina lysis , dipst ick Unknown Analyte Normal = negati ve Not Available leena lee [address], [place], [place], [address], 11/02/2022 19:48:57 11/02/19 23 11/02/2022 urina lysis , dipst ick Unknown Analyte Negati ve Not Available 2099leena lee [address], [place], [address], 11/02/2022 19:48:57 11/02/19 23 11/02/2022 urina lysis , dipst ick Unknown Analyte Normal = Negati ve Not Available 2099leena [address], [place], [address], 11/02/2022 19:48:57 11/02/1911/02/2022 urina lysis , dipst ick Unknown Analyte Negati ve Not Available [facility] [address], [place], [address], 11/02/2022 19:48:57 11/02/19 23 11/02/2022 urina lysis , dipst ick Unknown Analyte Normal = Negati ve Not Available leena [address], [place], [address], 11/02/2022 19:48:57 11/02/1911/02/2022 urina lysis , dipst ick Unknown Analyte Negati ve Not Available leena [address], [place], [address], 11/02/2022 19:48:57 11/02/19 23 11/02/2022 urina lysis , dipst ick Unknown Analyte Normal = 1.010, 1.015, 1.020 Not Available [facility] [address], [place], [address], 11/02/2022 19:48:57 11/02/19 23 11/02/2022 urina lysis , dipst ick Unknown Analyte 1.020 Not Available [address] [place] [address] Drive, [place], [address], 11/02/2022 19:48:57 11/02/1911/02/2022 urina lysis , dipst ick Unknown Analyte Normal = Negati ve Not Available leena lee emem[address], [place], [address], 11/02/2022 19:48:57 11/02/19 23 11/02/2022 urina lysis , dipst ick Unknown Analyte Negati ve Not Available leena pe emem[address], [place], [address], 11/02/2022 19:48:57 11/02/1911/02/2022 urina lysis , dipst ick Unknown Analyte Normal = 6.5, 7.0, 7.5, 8.0 Not Available leena lee [address]em[address], [place], [address], 11/02/2022 19:48:57 11/02/19 23 11/02/2022 urina lysis , dipst ick Unknown Analyte 6.5 Not Available thelma [address], [place], [address], 11/02/2022 19:48:57 11/02/1911/02/2022 urina lysis , dipst ick Unknown Analyte Normal = Negati ve Not Available [facility] pe [facility], [place], [address], 11/02/2022 19:48:57 11/02/1911/02/2022 urina lysis , dipst ick Unknown Analyte Negati ve Not Available leena pe emem[address], [place], [address], 11/02/2022 19:48:57 02/10/21 2211/02/2022 urina lysis , dipst ick Unknown Analyte Normal = 0.2, 1.0 Not Available leena lee [address], [place], [address], 11/02/2022 19:48:57 11/02/19 23 11/02/2022 urina lysis , dipst ick Unknown Analyte 0.2 E.U./d L Not Available [facility] [address], [place], [address], 11/02/2022 19:48:57 11/02/1911/02/2022 urina lysis , dipst ick Unknown Analyte Normal = Negati ve Not Available [facility] [address], [place], [place], [address], 11/02/2022 19:48:57 11/02/1911/02/2022 urina lysis , dipst ick Unknown Analyte Negati ve Not Available leena [address], [place], [address], 11/02/2022 19:48:57 11/02/1911/02/2022 urina lysis , dipst ick Unknown Analyte Normal = Negati ve Not Available [facility] [address], [place], [address], 11/02/2022 19:48:57 11/02/1911/02/2022 urina lysis , dipst ick Unknown Analyte Negati ve Not Available [address], [place], [address], 11/02/2022 19:48:57 11/17/19 23 11/17/2022 pregn angela test, urine Unknown Analyte Normal = Negati ve Not Available [address], [place], [address], 11/17/2022 18:41:03 11/17/19 23 11/17/2022 pregn angela test, urine Unknown Analyte negati ve Not Available [facility] [address], [place], [address], 11/17/2022 18:41:03 11/17/19 23 11/17/2022 urina lysis , dipst ick Unknown Analyte Normal = light yellow Not Available [address] [place] [address], [place], [address], 11/17/2022 18:40:51 11/17/19 23 11/17/2022 urina lysis , dipst ick Unknown Analyte Normal = clear Not Available [address], [place], [address], 11/17/2022 18:40:51 11/17/19 23 11/17/2022 urina lysis , dipst ick Unknown Analyte Normal = negati ve Not Available [address], [place], [address], 11/17/2022 18:40:51 11/17/19 23 11/17/2022 urina lysis , dipst ick Unknown Analyte Normal = Negati ve Not Available [address], [place], [address], 11/17/2022 18:40:51 11/17/19 23 11/17/2022 urina lysis , dipst ick Unknown Analyte Normal = Negati ve Not Available [address], [place], [address], 11/17/2022 18:40:51 11/17/19 23 11/17/2022 urina lysis , dipst ick Unknown Analyte Normal = 1.010, 1.015, 1.020 Not Available leena lee em[address], [place], [address], 11/17/2022 18:40:51 11/17/19 23 11/17/2022 urina lysis , dipst ick Unknown Analyte Normal = Negati ve Not Available [facility] [address], [place], [address], 11/17/2022 18:40:51 11/17/19 23 11/17/2022 urina lysis , dipst ick Unknown Analyte Normal = 6.5, 7.0, 7.5, 8.0 Not Available 2099leena lee [address], [place], [address], 11/17/2022 18:40:51 11/17/19 23 11/17/2022 urina lysis , dipst ick Unknown Analyte Normal = Negati ve Not Available [facility] [address], [place], [address], 11/17/2022 18:40:51 11/17/19 23 11/17/2022 urina lysis , dipst ick Unknown Analyte Normal = 0.2, 1.0 Not Available [facility] [address], [place], [address], 11/17/2022 18:40:51 11/17/19 23 11/17/2022 urina lysis , dipst ick Unknown Analyte Normal = Negati ve Not Available 2099leena lee [address], [place], [address], 11/17/2022 18:40:51 11/17/19 23 11/17/2022 urina lysis , dipst ick Unknown Analyte Normal = Negati ve Not Available [facility] [address], [place], [address], 11/17/2022 18:40:51 11/17/19 23 11/17/2022 urina lysis , dipst ick Unknown Analyte Yellow Not Available thelma [address], [place], [address], 11/17/2022 18:40:51 11/17/19 23 11/17/2022 urina lysis , dipst ick Unknown Analyte Clear Not Available thelma [address], [place], [address], 11/17/2022 18:40:51 11/17/19 23 11/17/2022 urina lysis , dipst ick Unknown Analyte Negati ve Not Available leena lee [address], [place], [address], 11/17/2022 18:40:51 11/17/19 23 11/17/2022 urina lysis , dipst ick Unknown Analyte Negati ve Not Available leena lee [address], [place], [address], 11/17/2022 18:40:51 11/17/19 23 11/17/2022 urina lysis , dipst ick Unknown Analyte Negati ve Not Available leena lee [address], [place], [address], 11/17/2022 18:40:51 11/17/19 23 11/17/2022 urina lysis , dipst ick Unknown Analyte 1.020 Not Available thelma [address], [place], [place], [address], 11/17/2022 18:40:51 11/17/19 23 11/17/2022 urina lysis , dipst ick Unknown Analyte Negati ve Not Available leena lee [address], [place], [place], [address], 11/17/2022 18:40:51 11/17/19 23 11/17/2022 urina lysis , dipst ick Unknown Analyte 7.0 Not Available thelma [address], [place], [address], 11/17/2022 18:40:51 11/17/19 23 11/17/2022 urina lysis , dipst ick Unknown Analyte Negati ve Not Available leena lee [address], [place], [address], 11/17/2022 18:40:51 11/17/19 23 11/17/2022 urina lysis , dipst ick Unknown Analyte 0.2 E.U./d L Not Available leena lee [address], [place], [address], 11/17/2022 18:40:51 11/17/19 23 11/17/2022 urina lysis , dipst ick Unknown Analyte Negati ve Not Available leena lee [address], [place], [address], 11/17/2022 18:40:51 11/17/19 23 11/17/2022 urina lysis , dipst ick Unknown Analyte Negati ve Not Available leena lee [address], [place], [address], 11/17/2022 18:40:51 Result Notes None recorded. Problems Name Problem SNOMED Code Status Onset Date Resolution Date Notes Provider Name and Address Organization Details Recorded Time Insomnia 734492782 Active 2021 EDIE Rivera - [facility] 17:56:19 Depressive disorder 06119155 Active 2021 JAZMIN gaspar PA - [facility] 17:56:26 Bipolar disorder 41931260 Active 2021 JAZMIN KUMAR null, PA - [facility] 2 17:56:36 Migraine 73479971 Active 2021 JAZMIN KUMAR null, PA - [facility] 2 17:56:43 Gastroesophage al reflux disease 128643368 Active 2021 JAZMIN KUMAR null, PA - [facility] 2 17:56:49 Asthma 603228302 Active 2021 JAZMIN KUMAR null, PA - [facility] 2 17:56:57 Constipation 71412445 Active 2021 JAZMIN KUMAR null, PA - [facility] 2 17:57:06 Problem Notes None recorded. Medical Equipment None Reported. Allergies Allergen ID Allergen Name Allergen Category Reaction Reaction Severity Criticality Documentation Date Start Date Code Code System Note Provider Name and Address Organization Details Recorded Time 23720 Miralax medicatio n Not available Not available Not available 09/20/2022 25619 5 RxNorm JAZMIN KUMAR null, PA - [facility] 2 17:54:12 96019 amoxicill in medicatio n Not available Not available Not available 09/20/2022 723 RxNorm JAZMIN BRUNOEY null, PA - [facility] 2 17:54:16 84073 Product containin g penicilli n (product) medicatio n Not available Not available Not available 09/20/2022 45372 8001 SNOMED JAZMIN BRUNOEY null, PA - [facility] 2 17:54:22 29334 sulindac medicatio n Not available Not available Not available 09/20/2022 88633 RxNorm JAZMIN KUMAR null, PA - [facility] 2 17:54:29 55627 sennoside s, [facility] medicatio n Not available Not available Not available 09/20/2022 81052 RxNorm JAZMIN KUMAR null, [facility] - [facility] [...] Available N ot Available Vitals Date Recorded Systolic And Diastolic Provider Name and Address Organization Details Last Updated DateTime 11/02/2022 132/84 mm[Hg] EDIE STEVE [address] [place], [address], [place] - [facility] 11/02/2022 20:13:06 Date Recorded Body height Body mass index (BMI) Body weight Oxygen saturation Oxygen saturation in Arterial blood by Pulse oximetry Heart rate Respiratory rate Body temperature Systolic And Diastolic Provider Name and Address Organization Details Last Updated DateTime 3 162.56 cm 35.9 kg/m2 84142.8 1 g 99 % 99 % 81 /min 20 /min 97.8 [degF] 147/98 mm[Hg] Maeve Bell PA - [facility] 3 19:44:52 Date Recorded Body height Body mass index (BMI) Body weight Oxygen saturation Oxygen saturation in Arterial blood by Pulse oximetry Heart rate Respiratory rate Body temperature Systolic And Diastolic Provider Name and Address Organization Details Last Updated DateTime 3 162.56 cm 35.9 kg/m2 47517.8 1 g 97 % 97 % 95 /min 18 /min 97.9 [degF] 143/88 mm[Hg] Maeve Bell PA - [facility] 3 18:40:21 Date Recorded Body height Body mass index (BMI) Body weight Provider Name and Address Organization Details Last Updated DateTime 09/20/2022 162.56 cm 35.9 kg/m2 33427.81 g JAZMIN JOSÉ PA - [facility] 09/20/2022 17:53:41 Social History Question Answer Notes LastModified by Interactive TKO Details LastModified Time Tobacco Smoking Status Former Smoker JAZMIN gaspar PA - [facility] 09/20/2022 17:57:37 When Did You Quit Smoking? 1-5yearssinc elastcigaret te [email or web address] Information not available 09/20/2022 Have You Recently Traveled Abroad? No [email or web address] Information not available 09/20/2022 Sex: Unknown Functional Status Question Answer Note LastModified by Interactive [employer]KO Details LastModified Time Do you use any illicit or recreational drugs? No Information not available 09/20/2022 Do you or have you ever used any other forms of tobacco or nicotine? No [email or web address] Information not available 09/20/2022 What is your level of alcohol consumption? None [email or web address] Information not available 09/20/2022 Mental Status None recorded. Family History Relationship Description Onset Age of this Age Resolved Age Notes LastModified by Organization Details LastModified Time Father No current problems or disability [email or web address] Not available 09/20 17:57:14 Mother No current problems or disability [email or web address] Not available 09/20 17:57:14 Medical History No [...] SNOMED-CT Code Diagnosis ICD10 Code Diagnosis Note [id number] [facility] [place] [address] 03/01/2018 19:08:03 03/01/2018 20:09:30 51011415 [facility] [address] [place] [address] 04/20/2021 11:47:11 04/20/2021 12:34:46 [id number] EDIE Robles [address] [place] [address] 09/20/2022 17:17:57 09/20/2022 18:38:19 Influenza caused by Influenza A virus 943321494 J09.X2 [id number] EDIE STEVE [address] [address] [place] [address] 11/02/2022 19:02:21 11/02/2022 20:15:12 Dysuria 82595927 R30.0 [id number] Sanya Suárez NP [address] [place] [address] 11/17/2022 16:39:43 11/17/2022 19:10:36 Acute urinary tract infection 651619689 N39.0 Health Concerns Section Related Observation LastModified by Organization Detai ls LastModified Time None Recorded Concern Status LastModified by Organization Details LastModified Time None Recorded Advance Directives Directive None Recorded Payers Insurance Date Sequence Insurance Name Policy Number Policy Tavarez Covered Member ID Tavarez Member ID Guarantor Name 11/17/2022 1 [facility] (MEDICAID HMO) MARY JANE Cartwright [id number] Yosvany Caregiver Notes Date Note Type Note Provider Name and Address Organization Details Recorded Time 2 text/html Sore throatReported bypatient.Notes:Pt and caregiver report cough, sore throat, congestion, fatigue x 3-4 days. Taking OTC naproxen and using albuterol as previously prescribed. Denies fever, SOB, wheezing currently. EDIE Robles [address] [place], [address], [place] [facility] 09/20/2022 18:43:28 3 text/html Urinary Complaint [...] Sanya Suárez NP [address] [place], [address], [place] - [facility] 11/17/2022 19:08:05 OBGyn Episode No OBEpisode recorded.
[2025-02-25 16:19] LABS: MANUAL DIFF FLAG NO
[2025-02-25 17:17] LABS: Basophils Percent Auto 0.9 % (0-2); Eosinophils Absolute Auto 0.1 X10*3/uL (0.0-0.4); Eosinophils Percent Auto 2.2 % (0-4); Hematocrit 24.3 % (37.0-47.0); Hemoglobin 8.3 g/dl (12.0-16.0); Imm Gran Abs Auto 0.01 X10*3/uL (0.00-0.03); Imm Gran Pct Auto 0.2 % (0.0-0.4); Lymphocytes Absolute Auto 0.8 X10*3/uL (1.2-4.9); Lymphocytes Percent Auto 17.9 % (20-40); Mean Corpuscular HGB Conc 34.2 g/dl (31.0-35.0); Mean Corpuscular Hemoglobin 28.4 pg (27.0-33.0); Mean Corpuscular Volume 83.2 fL (80.0-98.0); Mean Platelet Volume 11.2 fL (9.4-12.3); Monocytes Absolute Auto 0.4 X10*3/uL (0.1-1.2); Monocytes Percent Auto 8.7 % (2-11); Neutrophils Absolute Auto 3.1 x10*3/uL (2.0-8.3); Neutrophils Percent Auto 70.1 % (45-73); Platelet Count 155 X10*3/uL (160-400); Red Blood Count 2.92 X10*6/uL (4.20-5.50); Red Cell Distribution Width 13.7 % (11.0-16.0); White Blood Count 4.5 X10*3/uL (4.8-10.8)
[2025-02-25 17:19] LABS: Appearance Urine Cloudy; Color Urine Yellow; Glucose Urine UA Negative (Negative); Leukocyte Esterase Urine Negative (Negative); Nitrite Urine Negative (Negative); PH 5.5 (5.0-9.0); UMIC TRIGGER UA YES; Urine Blood Negative (Negative); Urine Ketones Trace mg/dL (Negative); Urine Protein 300 (3+) mg/dL (Neg-Trace)
[2025-02-25 17:42] LABS: Anion Gap 14 (12-20); Blood Urea Nitrogen 17 mg/dL (9-16); Carbon Dioxide 22 mmol/L (22-29); Chloride 106 mmol/L (96-108); Estimated Glomerular Filt Rate 14; Iron 54 mcg/dL (30-160); Percent Iron Saturation 24 % (15-50); Potassium 3.5 mmol/L (3.3-5.1); Sodium 138 mmol/L (135-145); Total Iron Binding Capacity 223 mcg/dL (228-428); Unsaturated Iron Binding 169 ug/dL
[2025-02-25 17:58] LABS: Ferritin 385 ng/mL (10-122)
[2025-02-25 18:46] LABS: Bacteria Urine 1+ (None Seen); RBC Urine 0-2 /HPF (0-2); WBC Urine 0-5 /HPF (0-5)
== END 2025-02-25 16:02 | disposition home or self-care (01) ==
LOC: HO.LAB 16:01
PROVIDERS: PCP Internal Medicine; Visit Provider Internal Medicine Nephrology
DX: D59.39 Other hemolytic-uremic syndrome (principal)
CPT/HCPCS: 36415; 80051; 81001; 82565; 82728; 83540; 84520; 85025

== ENCOUNTER 2025-02-26 16:01 | Outpatient (AMB) | payer OTHER, SELFPAY ==
[2025-02-26 16:02] VITALS: BP 140/90; PULSE 91; O2SAT 98; BMI 36.8
--- NOTE | 2025-02-26 16:02 | HO.NEPHOV ---
Vital Signs 02/26/25 16:02 Height 5 ft 3 in Weight 208 lb BMI 36.8 BP 140/90 H Blood Pressure Location Rt brachial Position Sitting Pulse 91 Pulse Source Pulse Oximeter Pulse Oximetry (%) 98 Oxygen Delivery Method Room Air Intake Visit Reasons: 2wk follow-up w/labs-Conf w/[employer] Required: No Accompanied by: Other Relationship Allergies amoxicillin [AMOXICILLIN] Allergy (Severe, Verified 02/26/25 16:05) ANAPHYLAXIS, swelling Penicillins [PENICILLINS] Allergy (Severe, Verified 02/26/25 16:05) ANAPHYLAXIS polyethylene glycol 3350 [From MIRALAX] Allergy (Severe, Verified 02/26/25 16:05) ANAPHYLAXIS sulindac [SULINDAC] Allergy (Severe, Verified 02/26/25 16:05) SWELLING senna Allergy (Intermediate, Verified 02/26/25 16:05) Unknown seafood Allergy (Verified 02/26/25 16:05) Hives HPI Comments Details: 35-year-old female with pertinent history of mood disorder, gastroesophageal reflux disease, mild intellectual disability, hypertension recently presented to the emergency department for evaluation of nausea and vomiting. She had been having nausea and multiple episodes of nonbloody emesis throughout the day prior to presentation. She also has been having abdominal discomfort at that time which is generalized, constant, not related to food intake, nonradiating, nonprogressive and without any relieving factors. Patient had not been taking her p.o. antihypertensives for the last few days. She had reduced p.o. intake as she is unable to hold anything down due to nausea and vomiting. She denied fever, chills or diarrhea. She has no palpitation, shortness of breath, changes in urinary habits. She has no history of diabetes mellitus, palpitation, orthostasis. Her renal function had been getting worse and now has been having worsening proteinuria. She denied using drugs other than Marijuana. She does not takes nonsteroidal anti-inflammatories regularly. 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 Her mental status was at baseline. [place] [facility] [place] 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 She had acute hypoxic respiratory failure in hospital with worsening renal function. She responded well to diuresis. She had elevated LDH, thrombocytopenia, decreased haptoglobin with schistocytes on peripheral smear. ADAMTS 13 was negative. Had her femoral HD catheter removed on 01/10/2025. Did not have any renal biopsy. She had steroids and was started on Eculizumab 900 mg weekly for 4 weeks ( 01/06/25, 01/13/25, 01/20/25 and 4th dose given this week). Received meningococcal vaccination and was started on Azithromycin 500 mg daily for 2 weeks ( penicillin allergy) while on eculizumab. She continues to have good urine output. Her GFR has improved. She has no edema or any other symptoms other than nausea at times. Her appetite is good and denies any SOB, PND, orthopnea or any uremic symptoms. She had hypertensive emergency during hospital stay which improved with medications. She has been having difficulties in blood draws and medication administration due to poor veins and is waiting for a port a cath inserted.Her renal functions has been improving & remains on eculzimab [facility] Medical History Possible exposure to STD Breast mass, right Morbid obesity with BMI of 40.0-44.9, adult Hypertension Annual visit for general adult medical examination with abnormal findings Heart murmur, systolic Breast pain Right Achilles tendinitis Erythema intertrigo External hemorrhoids Bleeding hemorrhoids Vitamin D deficiency Heel callus Mild intermittent asthma in adult without complication Ex-cigarette smoker Motion sickness Mild intellectual disability Porcelain gallbladder Migraine Depression with anxiety Dysmenorrhea 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 Brother No problems noted. Brother No problems noted. 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 Cognitive needs: No Hearing needs: No Vision needs: Yes Female Reproductive History Menstrual Age of Menarche: 13 Review of Systems Const All systems reviewed & are unremarkable except as noted in HPI and below Physical Exam Vital Signs: Last Vital Signs Pulse 91 02/26/25 16:02 BP 162/100 H 02/26/25 16:02 Pulse Ox 98 02/26/25 16:02 Oxygen Delivery Method Room Air 02/26/25 16:02 BMI result Body Mass Index 36.8 Const General: comfortable and no acute distress Orientation/consciousness: patient oriented x3 HEENT Head: Yes normocephalic Mouth: Normal oral and palatal mucosa present Eyes EOM: EOMs intact bilaterally Neck Neck: Yes supple Resp Auscultation: clear to auscultation bilaterally Cardio Jugular venous distension: no JVD Rate: regular rate GI Palpation (GI): Soft to palpation Auscultation: normal bowel sounds General: Yes no CVA tenderness Back/Spine/Pelvis Back: no CVA tenderness Skin General skin exam: no rashes or lesions noted Neuro General: patient oriented x3 and moves all extremities Extrem General: Yes no pedal edema Results Reviewed Nephrology Results: Hgb 8.3 g/dl (12.0-16.0) L 02/25/25 WBC 4.5 X10*3/uL (4.8-10.8) L 02/25/25 Plt Count 155 X10*3/uL (160-400) L 02/25/25 Sodium 138 mmol/L (135-145) 02/25/25 Potassium 3.5 mmol/L (3.3-5.1) 02/25/25 Chloride 106 mmol/L (96-108) 02/25/25 Carbon Dioxide 22 mmol/L (22-29) 02/25/25 BUN 17 mg/dL (9-16) H 02/25/25 Creatinine 3.70 mg/dL (0.5-1.4) H 02/25/25 Calcium 8.9 mg/dL (8.4-10.2) 02/13/25 Urine Protein 300 (3+) mg/dL (Neg-Trace) H 02/25/25 Urine Creatinine 156.70 mg/dL 02/13/25 Protein/Creatinin Ratio 1.28 (<0.2) H 02/13/25 Assessment & Plan Assessment & Plan (1) Atypical hemolytic uremic syndrome: Code(s): D59.39 - Other hemolytic-uremic syndrome Category: Medical (2) PEYTON (acute kidney injury): Code(s): N17.9 - Acute kidney failure, unspecified Category: Medical (3) Proteinuria: Code(s): R80.9 - Proteinuria, unspecified Category: Medical Qualifiers: Proteinuria type: other Qualified Code(s): R80.8 - Other proteinuria (4) Hypertension: Code(s): I10 - Essential (primary) hypertension Category: Medical Qualifiers: Hypertension type: primary hypertension Qualified Code(s): I10 - Essential (primary) hypertension Plan She had H/O worsening of renal function with drop in her platelet count 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 She was [place] [facility] [place] 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 She had acute hypoxic respiratory failure in hospital with worsening renal function. She responded well to diuresis. She had elevated LDH, thrombocytopenia, decreased haptoglobin with schistocytes on peripheral smear. ADAMTS 13 was negative. Had her femoral HD catheter removed on 01/10/2025. Did not have any renal biopsy. She had steroids and was started on Eculizumab 900 mg weekly for 4 weeks ( 01/06/25, 01/13/25, 01/20/25 and 4th dose was given this week). Received meningococcal vaccination and was started on Azithromycin 500 mg daily for 2 weeks ( penicillin allergy) while on eculizumab. She continues to have good urine output. Her GFR is improving. She has no edema or any other symptoms other than nausea at times. Her appetite is good and denies any SOB, PND, orthopnea or any uremic symptoms. She had hypertensive emergency during hospital stay which improved with medications. I increased her NIfedipine to 60 mg bid. I have arranged further doses of Eculizumab [place] [facility] [place] 2 [place]. I also have ordered a piter cath placement by IR. Follow up labs ordered & F/U appointment given Orders: Orders Electrolytes 1 Month D5.39 - Other hemolytic-uremic syndrome Complete Blood Count Auto Diff 1 Month D5.39 - Other hemolytic-uremic syndrome Creatinine 1 Month D5.39 - Other hemolytic-uremic syndrome Blood Urea Nitrogen 1 Month D5.39 - Other hemolytic-uremic syndrome Protein Creatinine Ratio, Ur 1 Month D5.39 - Other hemolytic-uremic syndrome Medications: New bisacodyl (Dulcolax (bisacodyl)) 5 mg PO BEDTIME 30 days PRN 30 tabs 6RF constipation Coding Level of Care Code Est Pt Level 4 (00126) Diagnoses Atypical hemolytic uremic syndrome D5.39 PEYTON (acute kidney injury) N17.9 Other proteinuria R80.8 Proteinuria type: other Primary hypertension I10 Hypertension type: primary hypertension
--- OUTSIDE RECORDS SUMMARY | 2025-02-26 16:15 | XMS_ITS | Data Portability ---
Author Organization EDIE [facility]el[facility] Address [address] [place] [address] Care Team Providers Care It Consultant Name Role Phone DANTE MARTINES Primary Care Provider Assessment No assessment recorded. Plan of Treatment Reminders Order Date Submit Date Provider Last Modified By Organization Details Last Modified Time Details Appointments None recorded. Lab urinalysis , dipstick 2022 023 [email or web address] [facility], [address] [place] [address], [phone], 3 19:07:26 test, urine 2022 023 [email or web address] [facility], [address] [place] [address], [address], 3 19:07:26 culture, urine 2022 023 [email or web address] [facility], [address] [place] [address], [place], [address], 3 19:39:46 urinalysis , dipstick 2022 023 [email or web address] [facility], [address] [place] [address], [address], 3 20:12:31 test, urine 2022 023 [email or web address] [facility], [address] [place] [address], [address], 3 20:12:31 culture, urine 2022 023 [email or web address], [address] [place] [address], [place], [address], 3 15:51:57 rapid strep group A, throat 2021 022 [email or web address] 5 _[facility], [address] [place] [address], [address], 2 18:30:46 rapid flu (A+B) 2021 022 [email or web address] 5 _[facility], [address] [place] [address], [place], [address], 2 18:30:46 rapid SARS CoV 2 Ag, QL IA, respirator y specimen 2021 022 5 _[facility], [address] [place] [address], [place], [address], 2 18:30:46 Referral None recorded. Procedures None recorded. Surgeries None recorded. Imaging None recorded. Medication Orders Macrobid [address] [id number], [address] [facility], [place], [address], 3 19:07:28 nitrofuran toin monohydrat e/macrocry stals 100 mg capsule 2022 023 [id number], [address] [facility], [place], [address], 3 18:28:08 acetaminop hen 325 mg tablet [address] [id number], [address] [facility], [place], [address], 2 18:43:07 Patient TargetsNo targets recorded. Patient Instructions Encounter Date Encounter Id Patient Instructions Last Modified By Organization Details Last Modified Time 09/20/2022 [id number] sore throat: rody pate instructions [email or web address] Not available 09/20/2022 18:30:46 [facility] if you develop ANY new [...] without a prescription. Drink plenty of water. [email or web address] Not available 09/20/2022 18:25:38 11/02/2022 [id number] urinary tract infection in women information [email or web address] Not available 11/02/2022 20:12:31 You are going [...] antibiotic was prescribed. Thank you for using [facility] - please don't hesistate to call our office if you have any questions or concerns. [email or web address] Not available 11/02/2022 20:12:18 11/17/2022 [id number] We recommend you get a repeat urinalysis [...] Unknown Analyte negati ve Not Available [address], [address], 09/20/2022 17:57:52 09/20/20 22 09/20/2022 rapid strep group A, throa t Unknown Analyte negati ve Not Available [address] [place] [address], [address], 09/20/2022 17:52:10 09/20/20 22 09/20/2022 rapid flu (A+B) Unknown Analyte positi ve Not Available [address] [place] [address], [address], 09/20/2022 17:57:47 09/20/20 22 09/20/2022 rapid flu (A+B) Unknown Analyte negati ve Not Available [address] [place] [address], [address], 09/20/2022 17:57:47 11/02/19 23 11/02/2022 pregn angela test, urine Unknown Analyte Normal = Negati ve Not Available 2099leena lee [address], [place], [address], 11/02/2022 20:03:07 11/02/19 23 11/02/2022 pregn angela test, urine Unknown Analyte negati ve Not Available 2099leena lee [address], [place], [address], 11/02/2022 20:03:07 11/02/19 23 11/02/2022 urina lysis , dipst ick Unknown Analyte Normal = light yellow Not Available 2099leena lee [address], [place], [address], 11/02/2022 19:48:57 11/02/1911/02/2022 urina lysis , dipst ick Unknown Analyte Light Yellow Not Available 2099leena lee [address], [place], [address], 11/02/2022 19:48:57 11/02/19 23 11/02/2022 urina lysis , dipst ick Unknown Analyte Normal = clear Not Available leena lee [address], [place], [place], [address], 11/02/2022 19:48:57 11/02/19 23 11/02/2022 urina lysis , dipst ick Unknown Analyte Clear Not Available [address], [place], [place], [address], 11/02/2022 19:48:57 11/02/19 23 11/02/2022 urina lysis , dipst ick Unknown Analyte Normal = negati ve Not Available leena lee [address], [place], [place], [address], 11/02/2022 19:48:57 11/02/19 23 11/02/2022 urina lysis , dipst ick Unknown Analyte Negati ve Not Available 2099leena lee [address], [place], [address], 11/02/2022 19:48:57 11/02/19 23 11/02/2022 urina lysis , dipst ick Unknown Analyte Normal = Negati ve Not Available 2099leena [address], [place], [address], 11/02/2022 19:48:57 11/02/1911/02/2022 urina lysis , dipst ick Unknown Analyte Negati ve Not Available [facility] [address], [place], [address], 11/02/2022 19:48:57 11/02/19 23 11/02/2022 urina lysis , dipst ick Unknown Analyte Normal = Negati ve Not Available leena [address], [place], [address], 11/02/2022 19:48:57 11/02/1911/02/2022 urina lysis , dipst ick Unknown Analyte Negati ve Not Available leena [address], [place], [address], 11/02/2022 19:48:57 11/02/19 23 11/02/2022 urina lysis , dipst ick Unknown Analyte Normal = 1.010, 1.015, 1.020 Not Available [facility] [address], [place], [address], 11/02/2022 19:48:57 11/02/19 23 11/02/2022 urina lysis , dipst ick Unknown Analyte 1.020 Not Available [address] [place] [address] Drive, [place], [address], 11/02/2022 19:48:57 11/02/1911/02/2022 urina lysis , dipst ick Unknown Analyte Normal = Negati ve Not Available leena lee emem[address], [place], [address], 11/02/2022 19:48:57 11/02/19 23 11/02/2022 urina lysis , dipst ick Unknown Analyte Negati ve Not Available leena pe emem[address], [place], [address], 11/02/2022 19:48:57 11/02/1911/02/2022 urina lysis , dipst ick Unknown Analyte Normal = 6.5, 7.0, 7.5, 8.0 Not Available leena lee emem[address], [place], [address], 11/02/2022 19:48:57 11/02/19 23 11/02/2022 urina lysis , dipst ick Unknown Analyte 6.5 Not Available thelma [address], [place], [address], 11/02/2022 19:48:57 11/02/1911/02/2022 urina lysis , dipst ick Unknown Analyte Normal = Negati ve Not Available [facility], [place], [address], 11/02/2022 19:48:57 11/02/1911/02/2022 urina lysis , dipst ick Unknown Analyte Negati ve Not Available leena pe emem[address], [place], [address], 11/02/2022 19:48:57 02/10/21 2211/02/2022 urina lysis , dipst ick Unknown Analyte Normal = 0.2, 1.0 Not Available leena lee [address], [place], [address], 11/02/2022 19:48:57 11/02/19 23 11/02/2022 urina lysis , dipst ick Unknown Analyte 0.2 E.U./d L Not Available [facility] [address], [place], [address], 11/02/2022 19:48:57 11/02/1911/02/2022 urina lysis , dipst ick Unknown Analyte Normal = Negati ve Not Available [facility] [address], [place], [place], [address], 11/02/2022 19:48:57 11/02/1911/02/2022 urina lysis , dipst ick Unknown Analyte Negati ve Not Available leena [address], [place], [address], 11/02/2022 19:48:57 11/02/1911/02/2022 urina lysis , dipst ick Unknown Analyte Normal = Negati ve Not Available [facility] [address], [place], [address], 11/02/2022 19:48:57 11/02/1911/02/2022 urina lysis , dipst ick Unknown Analyte Negati ve Not Available [address], [place], [address], 11/02/2022 19:48:57 11/17/19 23 11/17/2022 pregn angela test, urine Unknown Analyte Normal = Negati ve Not Available [address], [place], [address], 11/17/2022 18:41:03 11/17/19 23 11/17/2022 pregn angela test, urine Unknown Analyte negati ve Not Available [facility] [address], [place], [address], 11/17/2022 18:41:03 11/17/19 23 11/17/2022 urina lysis , dipst ick Unknown Analyte Normal = light yellow Not Available [address] [place] [address], [place], [address], 11/17/2022 18:40:51 11/17/19 23 11/17/2022 urina lysis , dipst ick Unknown Analyte Normal = clear Not Available [address], [place], [address], 11/17/2022 18:40:51 11/17/19 23 11/17/2022 urina lysis , dipst ick Unknown Analyte Normal = negati ve Not Available [address], [place], [address], 11/17/2022 18:40:51 11/17/19 23 11/17/2022 urina lysis , dipst ick Unknown Analyte Normal = Negati ve Not Available [address], [place], [address], 11/17/2022 18:40:51 11/17/19 23 11/17/2022 urina lysis , dipst ick Unknown Analyte Normal = Negati ve Not Available [address], [place], [address], 11/17/2022 18:40:51 11/17/19 23 11/17/2022 urina lysis , dipst ick Unknown Analyte Normal = 1.010, 1.015, 1.020 Not Available leena lee em[address], [place], [address], 11/17/2022 18:40:51 11/17/19 23 11/17/2022 urina lysis , dipst ick Unknown Analyte Normal = Negati ve Not Available [facility] [address], [place], [address], 11/17/2022 18:40:51 11/17/19 23 11/17/2022 urina lysis , dipst ick Unknown Analyte Normal = 6.5, 7.0, 7.5, 8.0 Not Available 2099leena lee [address], [place], [address], 11/17/2022 18:40:51 11/17/19 23 11/17/2022 urina lysis , dipst ick Unknown Analyte Normal = Negati ve Not Available [facility] [address], [place], [address], 11/17/2022 18:40:51 11/17/19 23 11/17/2022 urina lysis , dipst ick Unknown Analyte Normal = 0.2, 1.0 Not Available [facility] [address], [place], [address], 11/17/2022 18:40:51 11/17/19 23 11/17/2022 urina lysis , dipst ick Unknown Analyte Normal = Negati ve Not Available 2099leena lee [address], [place], [address], 11/17/2022 18:40:51 11/17/19 23 11/17/2022 urina lysis , dipst ick Unknown Analyte Normal = Negati ve Not Available [facility] [address], [place], [address], 11/17/2022 18:40:51 11/17/19 23 11/17/2022 urina lysis , dipst ick Unknown Analyte Yellow Not Available thelma [address], [place], [address], 11/17/2022 18:40:51 11/17/19 23 11/17/2022 urina lysis , dipst ick Unknown Analyte Clear Not Available thelma [address], [place], [address], 11/17/2022 18:40:51 11/17/19 23 11/17/2022 urina lysis , dipst ick Unknown Analyte Negati ve Not Available leena lee [address], [place], [address], 11/17/2022 18:40:51 11/17/19 23 11/17/2022 urina lysis , dipst ick Unknown Analyte Negati ve Not Available leena lee [address], [place], [address], 11/17/2022 18:40:51 11/17/19 23 11/17/2022 urina lysis , dipst ick Unknown Analyte Negati ve Not Available leena lee [address], [place], [address], 11/17/2022 18:40:51 11/17/19 23 11/17/2022 urina lysis , dipst ick Unknown Analyte 1.020 Not Available thelma [address], [place], [place], [address], 11/17/2022 18:40:51 11/17/19 23 11/17/2022 urina lysis , dipst ick Unknown Analyte Negati ve Not Available leena lee [address], [place], [place], [address], 11/17/2022 18:40:51 11/17/19 23 11/17/2022 urina lysis , dipst ick Unknown Analyte 7.0 Not Available thelma [address], [place], [address], 11/17/2022 18:40:51 11/17/19 23 11/17/2022 urina lysis , dipst ick Unknown Analyte Negati ve Not Available leena lee [address], [place], [address], 11/17/2022 18:40:51 11/17/19 23 11/17/2022 urina lysis , dipst ick Unknown Analyte 0.2 E.U./d L Not Available leena lee [address], [place], [address], 11/17/2022 18:40:51 11/17/19 23 11/17/2022 urina lysis , dipst ick Unknown Analyte Negati ve Not Available leena lee [address], [place], [address], 11/17/2022 18:40:51 11/17/19 23 11/17/2022 urina lysis , dipst ick Unknown Analyte Negati ve Not Available leena lee [address], [place], [address], 11/17/2022 18:40:51 Result Notes None recorded. Problems Name Problem SNOMED Code Status Onset Date Resolution Date Notes Provider Name and Address Organization Details Recorded Time Insomnia 886507962 Active 2021 EDIE Rivera - [facility] 17:56:19 Depressive disorder 81470628 Active 2021 JAZMIN gaspar PA - [facility] 17:56:26 Bipolar disorder 52672329 Active 2021 JAZMIN KUMAR null, PA - [facility] 2 17:56:36 Migraine 67370915 Active 2021 JAZMIN KUMAR null, PA - [facility] 2 17:56:43 Gastroesophage al reflux disease 567701396 Active 2021 JAZMIN KUMAR null, PA - [facility] 2 17:56:49 Asthma 583140163 Active 2021 JAZMIN KUMAR null, PA - [facility] 2 17:56:57 Constipation 75723815 Active 2021 JAZMIN KUMAR null, PA - [facility] 2 17:57:06 Problem Notes None recorded. Medical Equipment None Reported. Allergies Allergen ID Allergen Name Allergen Category Reaction Reaction Severity Criticality Documentation Date Start Date Code Code System Note Provider Name and Address Organization Details Recorded Time 57272 Miralax medicatio n Not available Not available Not available 09/20/2022 24113 5 RxNorm JAZMIN KUMAR null, PA - [facility] 2 17:54:12 68324 amoxicill in medicatio n Not available Not available Not available 09/20/2022 723 RxNorm JAZMIN BRUNOEY null, PA - [facility] 2 17:54:16 88286 Product containin g penicilli n (product) medicatio n Not available Not available Not available 09/20/2022 83323 8001 SNOMED JAZMIN BRUNOEY null, PA - [facility] 2 17:54:22 75396 sulindac medicatio n Not available Not available Not available 09/20/2022 38750 RxNorm JAZMIN KUMAR null, PA - [facility] 2 17:54:29 17853 sennoside s, CUSTODIAL medicatio n Not available Not available Not available 09/20/2022 66073 RxNorm JAZMIN KUMAR null, [facility] - [facility] [...] N ot Available Vitals Date Recorded Systolic blood pressure Diastolic blood pressure Provider Name and Address Organization Details Last Updated DateTime 11/02/2022 132 mm[Hg] 84 mm[Hg] EDIE STEVE [address] [place], [address], [place] - [facility] 11/02/2022 20:13:06 Date Recorded Body height Body mass index (BMI) Body weight Oxygen saturation Oxygen saturation in Arterial blood by Pulse oximetry Heart rate Respiratory rate Body temperature Systolic blood pressure Diastolic blood pressure Provider Name and Address Organization Details Last Updated DateTime 3 162.56 cm 35.9 kg/m2 40288.8 1 g 99 % 99 % 81 [...] Updated DateTime 3 162.56 cm 35.9 kg/m2 07774.8 1 g 97 % 97 % 95 /min 18 /min 97.9 [degF] 143 mm[Hg] 88 mm[Hg] Maeve Ray PA - [facility] 3 18:40:21 Date Recorded Body height Body mass index (BMI) Body weight Provider Name and Address Organization Details Last Updated DateTime 09/20/2022 162.56 cm 35.9 kg/m2 91580.81 g JAZMIN IRIZARRY - [facility] 09/20/2022 17:53:41 Social History Question Answer Notes LastModified by [facility] Details LastModified Time Tobacco Smoking Status Former Smoker JAZMIN gaspar PA - [facility] 09/20/2022 17:57:37 When Did You Quit Smoking? 1-5yearssinc elastcigaret te [email or web address] Information not available 09/20/2022 Have You Recently Traveled Abroad? No [email or web address] Information not available 09/20/2022 Sex: Unknown Functional Status Question Answer Note LastModified by [facility] Details LastModified Time Do you use any illicit or recreational drugs? No [email or web address] Information not available 09/20/2022 Do you or have you ever used any other forms of tobacco or nicotine? No [email or web address] Information not available 09/20/2022 What is your level of alcohol consumption? None [email or web address] Information not available 09/20/2022 Mental Status None recorded. Family History Relationship Description Onset Age of this Age Resolved Age Notes LastModified by Organization Details LastModified Time Father No current problems or disability [email or web address] Not available 09/20 17:57:14 Mother No current problems or disability [email or web address] Not available 09/20 17:57:14 Medical History No [...] toxoid, preservative free, adsorbed 4 completed Maeve Bradene null, PA - [facility] 11/02/2022 19:38:42 [...] SNOMED-CT Code Diagnosis ICD10 Code Diagnosis Note [id number] [facility] [address] [place] [address] 03/01/2018 19:08:03 03/01/2018 20:09:30 [id number] [facility] [address] [place] [address] 04/20/2021 11:47:11 04/20/2021 12:34:46 [id number] EDIE Robles [facility] [address] [place] [address] 09/20/2022 17:17:57 09/20/2022 18:38:19 Influenza caused by Influenza A virus 427716871 J09.X2 [id number] EDIE STEVE [address] [address] [place] [address] 11/02/2022 19:02:21 11/02/2022 20:15:12 Dysuria 30527987 R30.0 [id number] Sanya Suárez NP [address] [place] [address] 11/17/2022 16:39:43 11/17/2022 19:10:36 Acute urinary tract infection 579816344 N39.0 Health Concerns Section Related Observation LastModified by Organization Detai ls LastModified Time None Recorded Concern Status LastModified by Organization Details LastModified Time None Recorded Advance Directives Directive None Recorded Payers Insurance Date Sequence Insurance Name Policy Number Policy Tavarez Covered Member ID Tavarez Member ID Guarantor Name 11/17/2022 1 [facility] NET PLAN (MEDICAID HMO) MARY JANE Cartwright [id number] Yosvany Caregiver Notes Date Note Type Note Provider Name and Address Organization Details Recorded Time 2 text/html Sore throatReported bypatient.Notes:Pt and caregiver report cough, sore throat, congestion, fatigue x 3-4 days. Taking OTC naproxen and using albuterol as previously prescribed. Denies fever, SOB, wheezing currently. EDIE Robles [address] [place], [address], [facility] 09/20/2022 18:43:28 3 text/html Urinary Complaint [...] or bladder issues. Sanya Suárez NP [address] [place], [address], [place] - [facility] 11/17/2022 19:08:05 OBGyn Episode No OBEpisode recorded.
== END 2025-02-26 16:47 | disposition home or self-care (01) ==
LOC: HO.HKA 16:02
PROVIDERS: PCP Internal Medicine; Visit Provider Internal Medicine Nephrology
DX: D59.39 Other hemolytic-uremic syndrome (principal); N17.9 Acute kidney failure, unspecified; R80.8 Other proteinuria; I10 Essential (primary) hypertension
CPT/HCPCS: 99214

== ENCOUNTER → 2025-02-26 16:01 | Outpatient (BNVA) | payer OTHER, SELFPAY | PROVIDERS: PCP Internal Medicine; Visit Provider Internal Medicine Nephrology | DX: I10 Essential (primary) hypertension (principal); D59.39 Other hemolytic-uremic syndrome; N17.9 Acute kidney failure, unspecified; R80.8 Other proteinuria | CPT/HCPCS: 99212 ==

== ENCOUNTER 2025-03-05 12:35 | Day surgery (SDC) | payer OTHER, SELFPAY ==
--- OUTSIDE RECORDS SUMMARY | 2025-03-03 16:15 | XMS_ITS | Data Portability ---
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 Plan of Treatment Reminders Order Date Submit Date Provider Last Modified By Organization Details Last Modified Time Details Appointments None recorded. Lab urinalysis , dipstick 2022 023 [email or web address] [facility], [address] [place] [address], [address], 3 19:07:26 test, urine 2022 023 [email or web address] [facility], [address] [place] [address], [address], 3 19:07:26 culture, urine 2022 023 [email or web address] [facility], [address] [place] [address], [place], [address], 3 19:39:46 urinalysis , dipstick 2022 023 [email or web address] [facility], [address] [place] [address], [address], 3 20:12:31 test, urine 2022 023 [facility], [address] [place] [address], [address], 3 20:12:31 culture, urine 2022 023 [email or web address] ([facility], [address] [place] [address], [place], [address], 3 15:51:57 rapid strep group A, throat 2021 022 [email or web address] 5 _[facility], [address] [place] [address], [address], 2 18:30:46 rapid flu (A+B) 2021 022 [email or web address] 5 _[facility], [address] [place] [address], [place], [address], 2 18:30:46 rapid SARS CoV 2 Ag, QL IA, respirator y specimen 2021 022 [email or web address] 5 _[facility], [address] [place] [address], [place], [address], 2 18:30:46 Referral None recorded. Procedures None recorded. Surgeries None recorded. Imaging None recorded. Medication Orders Macrobid [address] [id number], [address] [facility], [place], [address], 3 19:07:28 nitrofuran toin monohydrat e/macrocry stals 100 mg capsule 2022 023 kevin [facility] #[id number], [address] [facility], [place], [address], 3 18:28:08 acetaminop hen 325 mg tablet [address] [id number], [address] [facility], [place], [address], 2 18:43:07 Patient TargetsNo targets recorded. Patient Instructions Encounter Date Encounter Id Patient Instructions Last Modified By Organization Details Last Modified Time 09/20/2022 [id number] sore throat: rody pate instructions Not available 09/20/2022 18:30:46 Go to the [facility] emergency department if you develop ANY new [...] without a prescription. Drink plenty of water. [email or web address] Not available 09/20/2022 18:25:38 11/02/2022 [id number] urinary tract infection in women information [email or web address] Not available 11/02/2022 20:12:31 You are going [...] antibiotic was prescribed. Thank you for using [facility] - please don't hesistate to call our office if you have any questions or concerns. [email or web address] Not available 11/02/2022 20:12:18 11/17/2022 [id number] We recommend you get a repeat urinalysis [...] Unknown Analyte negati ve Not Available [address], [address], 09/20/2022 17:57:52 09/20/20 22 09/20/2022 rapid strep group A, throa t Unknown Analyte negati ve Not Available [address] [place] [address], [address], 09/20/2022 17:52:10 09/20/20 22 09/20/2022 rapid flu (A+B) Unknown Analyte positi ve Not Available [address] [place] [address], [address], 09/20/2022 17:57:47 09/20/20 22 09/20/2022 rapid flu (A+B) Unknown Analyte negati ve Not Available [address] [place] [address], [address], 09/20/2022 17:57:47 11/02/19 23 11/02/2022 pregn angela test, urine Unknown Analyte Normal = Negati ve Not Available 2099leena lee [address], [place], [address], 11/02/2022 20:03:07 11/02/19 23 11/02/2022 pregn angela test, urine Unknown Analyte negati ve Not Available 2099leena lee [address], [place], [address], 11/02/2022 20:03:07 11/02/19 23 11/02/2022 urina lysis , dipst ick Unknown Analyte Normal = light yellow Not Available 2099leean lee [address], [place], [address], 11/02/2022 19:48:57 11/02/1911/02/2022 urina lysis , dipst ick Unknown Analyte Light Yellow Not Available 2099leena lee [address], [place], [address], 11/02/2022 19:48:57 11/02/19 23 11/02/2022 urina lysis , dipst ick Unknown Analyte Normal = clear Not Available leena lee [address], [place], [place], [address], 11/02/2022 19:48:57 11/02/19 23 11/02/2022 urina lysis , dipst ick Unknown Analyte Clear Not Available [address], [place], [place], [address], 11/02/2022 19:48:57 11/02/19 23 11/02/2022 urina lysis , dipst ick Unknown Analyte Normal = negati ve Not Available leena lee [address], [place], [place], [address], 11/02/2022 19:48:57 11/02/19 23 11/02/2022 urina lysis , dipst ick Unknown Analyte Negati ve Not Available 2099leena lee [address], [place], [address], 11/02/2022 19:48:57 11/02/19 23 11/02/2022 urina lysis , dipst ick Unknown Analyte Normal = Negati ve Not Available 2099leena [address], [place], [address], 11/02/2022 19:48:57 11/02/1911/02/2022 urina lysis , dipst ick Unknown Analyte Negati ve Not Available [facility] [address], [place], [address], 11/02/2022 19:48:57 11/02/19 23 11/02/2022 urina lysis , dipst ick Unknown Analyte Normal = Negati ve Not Available leena [address], [place], [address], 11/02/2022 19:48:57 11/02/1911/02/2022 urina lysis , dipst ick Unknown Analyte Negati ve Not Available leena [address], [place], [address], 11/02/2022 19:48:57 11/02/19 23 11/02/2022 urina lysis , dipst ick Unknown Analyte Normal = 1.010, 1.015, 1.020 Not Available [facility] [address], [place], [address], 11/02/2022 19:48:57 11/02/19 23 11/02/2022 urina lysis , dipst ick Unknown Analyte 1.020 Not Available [address] [place] [address] Drive, [place], [address], 11/02/2022 19:48:57 11/02/1911/02/2022 urina lysis , dipst ick Unknown Analyte Normal = Negati ve Not Available leena lee [address], [place], [address], 11/02/2022 19:48:57 11/02/19 23 11/02/2022 urina lysis , dipst ick Unknown Analyte Negati ve Not Available leena pe emem[address], [place], [address], 11/02/2022 19:48:57 11/02/1911/02/2022 urina lysis , dipst ick Unknown Analyte Normal = 6.5, 7.0, 7.5, 8.0 Not Available leena lee [address], [place], [address], 11/02/2022 19:48:57 11/02/19 23 11/02/2022 urina lysis , dipst ick Unknown Analyte 6.5 Not Available thelma [address], [place], [address], 11/02/2022 19:48:57 11/02/1911/02/2022 urina lysis , dipst ick Unknown Analyte Normal = Negati ve Not Available [facility], [place], [address], 11/02/2022 19:48:57 11/02/1911/02/2022 urina lysis , dipst ick Unknown Analyte Negati ve Not Available leena pe emem[address], [place], [address], 11/02/2022 19:48:57 02/10/21 2211/02/2022 urina lysis , dipst ick Unknown Analyte Normal = 0.2, 1.0 Not Available leena lee [address], [place], [address], 11/02/2022 19:48:57 11/02/19 23 11/02/2022 urina lysis , dipst ick Unknown Analyte 0.2 E.U./d L Not Available [facility] [address], [place], [address], 11/02/2022 19:48:57 11/02/1911/02/2022 urina lysis , dipst ick Unknown Analyte Normal = Negati ve Not Available [facility] [address], [place], [place], [address], 11/02/2022 19:48:57 11/02/1911/02/2022 urina lysis , dipst ick Unknown Analyte Negati ve Not Available leena [address], [place], [address], 11/02/2022 19:48:57 11/02/1911/02/2022 urina lysis , dipst ick Unknown Analyte Normal = Negati ve Not Available [facility] [address], [place], [address], 11/02/2022 19:48:57 11/02/1911/02/2022 urina lysis , dipst ick Unknown Analyte Negati ve Not Available [address], [place], [address], 11/02/2022 19:48:57 11/17/19 23 11/17/2022 pregn angela test, urine Unknown Analyte Normal = Negati ve Not Available [address], [place], [address], 11/17/2022 18:41:03 11/17/19 23 11/17/2022 pregn angela test, urine Unknown Analyte negati ve Not Available [facility] [address], [place], [address], 11/17/2022 18:41:03 11/17/19 23 11/17/2022 urina lysis , dipst ick Unknown Analyte Normal = light yellow Not Available [address] [place] [address], [place], [address], 11/17/2022 18:40:51 11/17/19 23 11/17/2022 urina lysis , dipst ick Unknown Analyte Normal = clear Not Available [address], [place], [address], 11/17/2022 18:40:51 11/17/19 23 11/17/2022 urina lysis , dipst ick Unknown Analyte Normal = negati ve Not Available [address], [place], [address], 11/17/2022 18:40:51 11/17/19 23 11/17/2022 urina lysis , dipst ick Unknown Analyte Normal = Negati ve Not Available [address], [place], [address], 11/17/2022 18:40:51 11/17/19 23 11/17/2022 urina lysis , dipst ick Unknown Analyte Normal = Negati ve Not Available [address], [place], [address], 11/17/2022 18:40:51 11/17/19 23 11/17/2022 urina lysis , dipst ick Unknown Analyte Normal = 1.010, 1.015, 1.020 Not Available leena lee em[address], [place], [address], 11/17/2022 18:40:51 11/17/19 23 11/17/2022 urina lysis , dipst ick Unknown Analyte Normal = Negati ve Not Available [facility] [address], [place], [address], 11/17/2022 18:40:51 11/17/19 23 11/17/2022 urina lysis , dipst ick Unknown Analyte Normal = 6.5, 7.0, 7.5, 8.0 Not Available 2099leena lee [address], [place], [address], 11/17/2022 18:40:51 11/17/19 23 11/17/2022 urina lysis , dipst ick Unknown Analyte Normal = Negati ve Not Available [facility] [address], [place], [address], 11/17/2022 18:40:51 11/17/19 23 11/17/2022 urina lysis , dipst ick Unknown Analyte Normal = 0.2, 1.0 Not Available [facility] [address], [place], [address], 11/17/2022 18:40:51 11/17/19 23 11/17/2022 urina lysis , dipst ick Unknown Analyte Normal = Negati ve Not Available 2099leena lee [address], [place], [address], 11/17/2022 18:40:51 11/17/19 23 11/17/2022 urina lysis , dipst ick Unknown Analyte Normal = Negati ve Not Available [facility] [address], [place], [address], 11/17/2022 18:40:51 11/17/19 23 11/17/2022 urina lysis , dipst ick Unknown Analyte Yellow Not Available thelma [address], [place], [address], 11/17/2022 18:40:51 11/17/19 23 11/17/2022 urina lysis , dipst ick Unknown Analyte Clear Not Available thelma [address], [place], [address], 11/17/2022 18:40:51 11/17/19 23 11/17/2022 urina lysis , dipst ick Unknown Analyte Negati ve Not Available leena lee [address], [place], [address], 11/17/2022 18:40:51 11/17/19 23 11/17/2022 urina lysis , dipst ick Unknown Analyte Negati ve Not Available leena lee [address], [place], [address], 11/17/2022 18:40:51 11/17/19 23 11/17/2022 urina lysis , dipst ick Unknown Analyte Negati ve Not Available leena lee [address], [place], [address], 11/17/2022 18:40:51 11/17/19 23 11/17/2022 urina lysis , dipst ick Unknown Analyte 1.020 Not Available thelma [address], [place], [place], [address], 11/17/2022 18:40:51 11/17/19 23 11/17/2022 urina lysis , dipst ick Unknown Analyte Negati ve Not Available leena lee [address], [place], [place], [address], 11/17/2022 18:40:51 11/17/19 23 11/17/2022 urina lysis , dipst ick Unknown Analyte 7.0 Not Available thelma [address], [place], [address], 11/17/2022 18:40:51 11/17/19 23 11/17/2022 urina lysis , dipst ick Unknown Analyte Negati ve Not Available leena lee [address], [place], [address], 11/17/2022 18:40:51 11/17/19 23 11/17/2022 urina lysis , dipst ick Unknown Analyte 0.2 E.U./d L Not Available leena lee [address], [place], [address], 11/17/2022 18:40:51 11/17/19 23 11/17/2022 urina lysis , dipst ick Unknown Analyte Negati ve Not Available leena lee [address], [place], [address], 11/17/2022 18:40:51 11/17/19 23 11/17/2022 urina lysis , dipst ick Unknown Analyte Negati ve Not Available leena lee [address], [place], [address], 11/17/2022 18:40:51 Result Notes None recorded. Problems Name Problem SNOMED Code Status Onset Date Resolution Date Notes Provider Name and Address Organization Details Recorded Time Insomnia 276144078 Active 2021 EDIE Rivera - [facility] 17:56:19 Depressive disorder 00561554 Active 2021 JAZMIN gaspar PA - [facility] 17:56:26 Bipolar disorder 76397524 Active 2021 JAZMIN KUMAR null, PA - [facility] 2 17:56:36 Migraine 93469048 Active 2021 JAZMIN KUMAR null, PA - [facility] 2 17:56:43 Gastroesophage al reflux disease 079531650 Active 2021 JAZMIN KUMAR null, PA - [facility] 2 17:56:49 Asthma 454060426 Active 2021 JAZMIN KUMAR null, PA - [facility] 2 17:56:57 Constipation 15252524 Active 2021 JAZMIN KUMAR null, PA - [facility] 2 17:57:06 Problem Notes None recorded. Medical Equipment None Reported. Allergies Allergen ID Allergen Name Allergen Category Reaction Reaction Severity Criticality Documentation Date Start Date Code Code System Note Provider Name and Address Organization Details Recorded Time 63299 Miralax medicatio n Not available Not available Not available 09/20/2022 17664 5 RxNorm JAZMIN KUMAR null, PA - [facility] 2 17:54:12 44109 amoxicill in medicatio n Not available Not available Not available 09/20/2022 723 RxNorm JAZMIN BRUNOEY null, PA - [facility] 2 17:54:16 01540 Product containin g penicilli n (product) medicatio n Not available Not available Not available 09/20/2022 77772 8001 SNOMED JAZMIN BRUNOEY null, PA - [facility] 2 17:54:22 45032 sulindac medicatio n Not available Not available Not available 09/20/2022 77965 RxNorm JAZMIN KUMAR null, PA - [facility] 2 17:54:29 16209 sennoside s, SNF medicatio n Not available Not available Not available 09/20/2022 49119 RxNorm JAZMIN KUMAR null, [facility] - [facility] [...] EDIE STEVE [address] [place], [address], PA - [facility] 11/02/2022 20:13:06 Date Recorded Body height Body mass index (BMI) Body weight Oxygen saturation Oxygen saturation in Arterial blood by Pulse oximetry Heart rate Respiratory rate Body temperature Systolic blood pressure Diastolic blood pressure Provider Name and Address Organization Details Last Updated DateTime 3 162.56 cm 35.9 kg/m2 27508.8 1 g 99 % 99 % 81 [...] Updated DateTime 3 162.56 cm 35.9 kg/m2 11439.8 1 g 97 % 97 % 95 /min 18 /min 97.9 [degF] 143 mm[Hg] 88 mm[Hg] Maeve Ray PA - [facility] 3 18:40:21 Date Recorded Body height Body mass index (BMI) Body weight Provider Name and Address Organization Details Last Updated DateTime 09/20/2022 162.56 cm 35.9 kg/m2 86007.81 g JAZMIN IRIZARRY - [facility] 09/20/2022 17:53:41 Social History Question Answer Notes LastModified by [employer] Details LastModified Time Tobacco Smoking Status Former Smoker JAZMIN gaspar PA - [facility] 09/20/2022 17:57:37 When Did You Quit Smoking? 1-5yearssinc elastcigaret te Information not available 09/20/2022 Have You Recently Traveled Abroad? No [email or web address] Information not available 09/20/2022 Sex: Unknown Functional Status Question Answer Note LastModified by [employer] Details LastModified Time Do you use any illicit or recreational drugs? No Information not available 09/20/2022 Do you or have you ever used any other forms of tobacco or nicotine? No Information not available 09/20/2022 What is your level of alcohol consumption? None [email or web address] Information not available 09/20/2022 Mental Status None recorded. Family History Relationship Description Onset Age of this Age Resolved Age Notes LastModified by Organization Details LastModified Time Father No current problems or disability [email or web address] Not available 09/20 17:57:14 Mother No current problems or disability [email or web address] Not available 09/20 17:57:14 Medical History No [...] SNOMED-CT Code Diagnosis ICD10 Code Diagnosis Note [id number] [facility] [address] [place] [address] 03/01/2018 19:08:03 03/01/2018 20:09:30 [id number] [facility] [address] [place] [address] 04/20/2021 11:47:11 04/20/2021 12:34:46 [id number] EDIE Robles [facility] [address] [place] [address] 09/20/2022 17:17:57 09/20/2022 18:38:19 Influenza caused by Influenza A virus 604581975 J09.X2 [id number] EDIE STEVE [address] [address] [place] [address] 11/02/2022 19:02:21 11/02/2022 20:15:12 Dysuria 68679445 R30.0 [id number] Sanya Suárez NP [address] [facility] [place] [address] 11/17/2022 16:39:43 11/17/2022 19:10:36 Acute urinary tract infection 831417355 N39.0 Health Concerns Section Related Observation LastModified by Organization Detai ls LastModified Time None Recorded Concern Status LastModified by Organization Details LastModified Time None Recorded Advance Directives Directive None Recorded Payers Insurance Date Sequence Insurance Name Policy Number Policy Tavarez Covered Member ID Tavarez Member ID Guarantor Name 11/17/2022 1 [facility] PL[facility] (MEDICAID HMO) MARY JANE Cartwright [id number] Yosvany Caregiver Notes Date Note Type Note Provider Name and Address Organization Details Recorded Time 2 text/html Sore throatReported bypatient.Notes:Pt and caregiver report cough, sore throat, congestion, fatigue x 3-4 days. Taking OTC naproxen and using albuterol as previously prescribed. Denies fever, SOB, wheezing currently. EDIE Robles [address] [place], [address], [facility] 09/20/2022 18:43:28 3 text/html Urinary Complaint [...] Sanya Suárez NP [address] [place], [address], [place] - [facility] 11/17/2022 19:08:05 OBGyn Episode No OBEpisode recorded.
[2025-03-05] VITALS (15 sets, daily range): BP systolic 159–189; BP diastolic 96–108; PULSE 76–89; RESP 13–20; TEMP 36.6–36.9; O2SAT 98–100; BMI 36.4
--- NOTE | ~2025-03-05 | IR_ITS ---
PROCEDURE: IR INSERTION OF TUNNEL CATHETER CLINICAL HISTORY: The patient presents to interventional radiology for placement of a port for long-term IV access for medication administration. PROCEDURES: 1. Real-time ultrasound-guided access into the right internal jugular vein after documentation of selected vessel patency, and permanent image storing in the patient records. 2. Placement of a 6.6 Tamazight single-lumen port. CLINICIAN: Stan Kelley NP MEDICATIONS: - Versed , Fentanyl , Lidocaine 1% SQ -Antibiotics: Vancomycin -For additional details, please see nursing flowsheet. Complications: None. Estimated blood loss: <5 ml Specimens: None. Contrast: None. Fluoroscopy time: 0.5 min MODERATE SEDATION TIME: 30 min PROCEDURE NOTE: The procedure, risks, benefits, and alternatives were carefully explained to the patient and written informed consent was obtained. The patient was placed supine on the fluoroscopy table. A timeout was performed. The right neck and chest was prepped and draped in usual sterile fashion. Maximum barrier technique was utilized. Local anesthesia was administered to the access site with 1% lidocaine. Under ultrasound guidance, the right internal jugular vein was accessed with a 5 fr micropuncture set. A 0.035 in wire was advanced into the IVC. A peel-away sheath was advanced over the wire and into the SVC, and the wire was removed. Next, subcutaneous lidocaine was administered to the chest. The port pocket was created after the skin incision, utilizing blunt dissection. Using blunt dissection, a subcutaneous tunnel was created that connects from the port pocket to the venotomy site. Through the peel-away sheath, the 6.6 Tamazight port catheter was placed. The catheter position was verified with fluoroscopy to be at the superior vena cava/right atrial junction. The port was connected to the catheter and was placed in the pocket. The port incision site was closed with interrupted 3-0 Vicryl subcutaneous sutures and surgical glue. Prior to closing the skin, 1 g of vancomycin solution was placed in the pocket. The port was tested, flushed, and packed with heparin per routine protocol. The patient tolerated the procedure well. The patient was stable after the procedure and was transferred to the PACU. The procedure was performed under moderate sedation and with a dedicated nurse with continuous monitoring of vital signs. A permanent image of the ultrasound the neck and fluoroscopic image of the chest was saved and sent to PACS. FINDINGS: 1. Patent right internal jugular vein 2. Placement of a 6.6 Tamazight single lumen port. 3. Port flushes and aspirates very well with a 10 mL syringe. No pneumothorax. IR/IR cvc insert tunnel w prt/clinical educator IMPRESSION: Placement of a 6.6 Tamazight single-lumen port. PLAN: - The patient will be discharged home when stable by sedation protocol. - Port may be used immediately. This procedure was performed by Stan Kelley NP and directly supervised by Juventino Cruz MD. Electronically signed by: Juventino Cruz MD 03/11/2025 02:47 PM EDT
[2025-03-05 13:15] LABS: Prothrombin Time 11.8 SEC (10.9-12.4)
[2025-03-05 13:18] LABS: Partial Thromboplastin Time 33.5 SEC (26.0-36.8)
[2025-03-05 13:44] LABS: Glucose, Whole Blood 86 mg/dL (60-115)
[2025-03-05 13:53] LABS: UPreg QC Valid YES; Urine Pregnancy NEGATIVE (NEGATIVE)
[2025-03-05] MEDS: Midazolam HCl 2 MG/2 ML VIAL 1 MG IVPUSH (15:11)
[2025-03-05] MEDS: fentaNYL citrate/PF 100 MCG/2 ML VIAL 50 MCG IVPUSH (15:11)
[2025-03-05] MEDS: fentaNYL citrate/PF 100 MCG/2 ML VIAL 25 MCG IVPUSH (15:28)
[2025-03-05] MEDS: Acetaminophen 325 MG TABLET 650 MG PO (17:00)
== END 2025-03-05 17:15 | disposition home or self-care (01) ==
LOC: HO.SSS 12:36
PROVIDERS: Anesthesiology; Radiology Diagnostic Radiology; PCP Internal Medicine; Visit Provider Internal Medicine Nephrology
DX: Z45.2 Encounter for adjustment and management of vascular access device (principal); D59.39 Other hemolytic-uremic syndrome; N17.9 Acute kidney failure, unspecified; R80.8 Other proteinuria; I10 Essential (primary) hypertension; J45.20 Mild intermittent asthma, uncomplicated; F70 Mild intellectual disabilities; F41.9 Anxiety disorder, unspecified; E66.01 Morbid (severe) obesity due to excess calories; Z68.36 Body mass index [BMI] 36.0-36.9, adult; Z97.0 Presence of artificial eye; Z88.0 Allergy status to penicillin; Z88.1 Allergy status to other antibiotic agents; Z88.8 Allergy status to other drugs, medicaments and biological substances; Z87.891 Personal history of nicotine dependence
CPT/HCPCS: 36415; 36561; 76937; 81025; 82947; 85610; 85730; 99152; 99153; C1769; C1788; J1642; J1644; J2003; J2250; J3010; J3370; J3371

== ENCOUNTER → 2025-03-05 14:00 | Outpatient (BNV) | payer OTHER, SELFPAY | PROVIDERS: PCP Internal Medicine | DX: D59.39 Other hemolytic-uremic syndrome (principal); N17.9 Acute kidney failure, unspecified; R80.9 Proteinuria, unspecified | CPT/HCPCS: 36561; 76937; 77001; 99152 ==

== ENCOUNTER 2025-03-20 | Outpatient (REF) | payer OTHER, SELFPAY ==
--- NOTE | ~2025-03-20 | FL_ITS ---
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 TECHNIQUE: Following explaining fluoroscopy-guided port check procedure, benefits and risk, a written consent was obtained. Patient was placed supine on fluoroscopy table and the area or lying the right port was cleaned and draped in usual sterile manner. A single fluoroscopy image was obtained and the port appears flipped from its origin of image when placed 03/05/2025. The port was then corrected by manipulation and robins needle was inserted. The port was flushed with saline. Subsequently 5 mm noncontrast injected under fluoroscopy and fluoroscopy images obtained. The needle was left in place carotid and patient sent to oncology for therapy. Patient targeted procedure extremely well. FINDINGS/ FL/FL cva device check w fluoro IMPRESSION: Initial images obtained at fluoroscopy reveals the port is flipped from its original placement from previous exam 03/05/2025. The port was then corrected by manipulation and robins needle placed. There is contrast exiting end of the port catheter in SVC. The port is widely patent. Patient has TO make an IR appointment for the port to be sutured to underlying soft tissues from future flipping of the Port-A-Cath. Electronically signed by: Draien Mills MD 03/20/2025 02:07 PM EDT
[2025-03-20] MEDS: iohexoL 300 MG/ML 100 ML INFUS..BTL 10 ML IV (11:51)
[2025-03-20] MEDS: Heparin Sodium,Porcine Flush 500 UNIT/5 ML SYRINGE IVFLUSH ×2 (12:00→12:02)
--- OUTSIDE RECORDS SUMMARY | 2025-04-01 11:23 | XMS_ITS | Clinical Summary ---
Author Organization [facility] it Address [address] [place] [address] Care Team Providers Care Commanding Officer Homicide [employer] Name Role Phone Fernandez Tyler MD Primary Care Provider [phone] Surgical History Surgery Date Site/Laterality Comments BREAST [...] age to complete this topic Care Teams Commanding Officer Homicide [employer] Relationship Specialty Start Date End Date Fernandez Tyler MD [address] [place] [address] Drive [address] [place] [address] PCP - General Internal Medicine 03/19/14
--- OUTSIDE RECORDS SUMMARY | 2025-04-01 11:23 | XMS_ITS | Data Portability ---
Author Organization EDIE zelaya [facility] Address [address] [place] [address] Care Team Providers Care Taxi Proprietor Name Role Phone DANTE MARTINES Primary Care Provider [phone] Assessment No assessment recorded. Plan of Treatment Reminders Order Date Submit Date Provider Last Modified By Organization Details Last Modified Time Details Appointments None recorded. Lab urinalysis , dipstick 2022 023 [email or web address] _thelma [facility], [address] [place] [address], [address], 3 19:07:26 test, urine 2022 [email or web address] [place] [address], [address] [place] [address], [address], 3 19:07:26 culture, urine 2022 023 [email or web address] [facility], [address] [place] [address], [place], [address], 3 19:39:46 urinalysis , dipstick 2022 023 [email or web address] 2099_[facility], [address] [place] [address], [address], 3 20:12:31 test, urine 2022 023 [email or web address] 2099_[facility], [address] [place] [address], [address], 3 20:12:31 culture, urine [address] ([facility], [address] [place] [address], [place], [address], 3 15:51:57 rapid strep group A, throat 2021 022 [email or web address] 5 _[facility], [address] [place] [address], [place], [address], 2 18:30:46 rapid flu (A+B) 2021 022 [email or web address] 5 _[facility], [address] [place] [address], [place], [address], 2 18:30:46 rapid SARS CoV 2 Ag, QL IA, respirator y specimen 2021 022 [email or web address] 5 _[facility], [address] [place] [address], [place], [address], 2 18:30:46 Referral None recorded. Procedures None recorded. Surgeries None recorded. Imaging None recorded. Medication Orders Macrobid 100 mg capsule 2022 023 [facility]/Pharmacy #[id number], [facility], [place], [address], 3 19:07:28 nitrofuran toin monohydrat e/macrocry stals 100 mg capsule 2022 023 kevin [facility]/Pharmacy #[id number], [address] [facility], [place], [address], 3 18:28:08 acetaminop hen 325 mg tablet 2021 022 [facility]/Pharmacy #2339, [address] [facility], [place], [address], 18:43:07 Patient TargetsNo targets recorded. Patient Instructions Encounter Date Encounter Id Patient Instructions Last Modified By Organization Details Last Modified Time 09/20/2022 [id number] sore throat: rody pate instructions Not available 09/20/2022 18:30:46 Go to the [facility] emergency department if you develop [...] without a prescription. Drink plenty of water. [email or web address] Not available 09/20/2022 18:25:38 11/02/2022 [id number] urinary tract infection in women information [email or web address] Not available 11/02/2022 20:12:31 You are going [...] antibiotic was prescribed. Thank you for using [facility] - please don't hesistate to call our office if you have any questions or concerns. [email or web address] Not available 11/02/2022 20:12:18 11/17/2022 [id number] We recommend you get a repeat urinalysis [...] men Unknown Analyte negati ve Not Available _[address], [address], 09/20/2022 17:57:52 09/20/20 22 09/20/2022 rapid strep group A, throa t Unknown Analyte negati ve Not Available [address] [place] [address], [address], 09/20/2022 17:52:10 09/20/20 22 09/20/2022 rapid flu (A+B) Unknown Analyte positi ve Not Available [address] [place] [address], [address], 09/20/2022 17:57:47 09/20/20 22 09/20/2022 rapid flu (A+B) Unknown Analyte negati ve Not Available [address] [place] [address], [address], 09/20/2022 17:57:47 11/02/19 23 11/02/2022 pregn angela test, urine Unknown Analyte Normal = Negati ve Not Available 2099leena lee [address], [place], [address], 11/02/2022 20:03:07 11/02/19 23 11/02/2022 pregn angela test, urine Unknown Analyte negati ve Not Available 2099leena lee [address], [place], [address], 11/02/2022 20:03:07 11/02/1911/02/2022 urina lysis , dipst ick Unknown Analyte Normal = light yellow Not Available leena lee [address], [place], [address], 11/02/2022 19:48:57 11/02/1911/02/2022 urina lysis , dipst ick Unknown Analyte Light Yellow Not Available 2099leena lee [address], [place], [place], [address], 11/02/2022 19:48:57 11/02/19 23 11/02/2022 urina lysis , dipst ick Unknown Analyte Normal = clear Not Available leena lee [address], [place], [place], [address], 11/02/2022 19:48:57 11/02/19 23 11/02/2022 urina lysis , dipst ick Unknown Analyte Clear Not Available thelma [address], [place], [address], 11/02/2022 19:48:57 11/02/19 23 11/02/2022 urina lysis , dipst ick Unknown Analyte Normal = negati ve Not Available leena lee [address], [place], [address], 11/02/2022 19:48:57 11/02/19 23 11/02/2022 urina lysis , dipst ick Unknown Analyte Negati ve Not Available leena lee [address], [place], [address], 11/02/2022 19:48:57 11/02/19 23 11/02/2022 urina lysis , dipst ick Unknown Analyte Normal = Negati ve Not Available leena lee [address], [place], [address], 11/02/2022 19:48:57 11/02/1911/02/2022 urina lysis , dipst ick Unknown Analyte Negati ve Not Available [facility] [address], [place], [address], 11/02/2022 19:48:57 11/02/1911/02/2022 urina lysis , dipst ick Unknown Analyte Normal = Negati ve Not Available leena [address], [place], [address], 11/02/2022 19:48:57 11/02/1911/02/2022 urina lysis , dipst ick Unknown Analyte Negati ve Not Available [facility] [address], [place], [address], 11/02/2022 19:48:57 11/02/19 23 11/02/2022 urina lysis , dipst ick Unknown Analyte Normal = 1.010, 1.015, 1.020 Not Available leena lee [address], [place], [address], 11/02/2022 19:48:57 11/02/19 23 11/02/2022 urina lysis , dipst ick Unknown Analyte 1.020 Not Available [address], [place], [address], 11/02/2022 19:48:57 11/02/1911/02/2022 urina lysis , dipst ick Unknown Analyte Normal = Negati ve Not Available leena lee [address], [place], [address], 11/02/2022 19:48:57 11/02/19 23 11/02/2022 urina lysis , dipst ick Unknown Analyte Negati ve Not Available [facility], [place], [address], 11/02/2022 19:48:57 11/02/1911/02/2022 urina lysis , dipst ick Unknown Analyte Normal = 6.5, 7.0, 7.5, 8.0 Not Available leena pe [address], [place], [address], 11/02/2022 19:48:57 11/02/1911/02/2022 urina lysis , dipst ick Unknown Analyte 6.5 Not Available [facility], [place], [address], 11/02/2022 19:48:57 11/02/19 23 11/02/2022 urina lysis , dipst ick Unknown Analyte Normal = Negati ve Not Available [facility], [place], [address], 11/02/2022 19:48:57 11/02/1911/02/2022 urina lysis , dipst ick Unknown Analyte Negati ve Not Available leena pe [address], [place], [address], 11/02/2022 19:48:57 11/02/19 11/02/2022 urina lysis , dipst ick Unknown Analyte Normal = 0.2, 1.0 Not Available leena lee [address], [place], [address], 11/02/2022 19:48:57 11/02/19 23 11/02/2022 urina lysis , dipst ick Unknown Analyte 0.2 E.U./d L Not Available 2099leena [address], [place], [address], 11/02/2022 19:48:57 11/02/1911/02/2022 urina lysis , dipst ick Unknown Analyte Normal = Negati ve Not Available [facility] [address], [place], [address], 11/02/2022 19:48:57 11/02/19 23 11/02/2022 urina lysis , dipst ick Unknown Analyte Negati ve Not Available leena [address], [place], [address], 11/02/2022 19:48:57 11/02/19 23 11/02/2022 urina lysis , dipst ick Unknown Analyte Normal = Negati ve Not Available [facility] [address], [place], [address], 11/02/2022 19:48:57 11/02/19 23 11/02/2022 urina lysis , dipst ick Unknown Analyte Negati ve Not Available [facility] [address], [place], [address], 11/02/2022 19:48:57 11/17/19 23 11/17/2022 pregn angela test, urine Unknown Analyte Normal = Negati ve Not Available [address], [place], [address], 11/17/2022 18:41:03 11/17/19 23 11/17/2022 pregn angela test, urine Unknown Analyte negati ve Not Available leena lee [address], [place], [address], 11/17/2022 18:41:03 11/17/19 23 11/17/2022 urina lysis , dipst ick Unknown Analyte Normal = light yellow Not Available [facility] [address], [place], [address], 11/17/2022 18:40:51 11/17/19 23 11/17/2022 urina lysis , dipst ick Unknown Analyte Normal = clear Not Available [address], [place], [address], 11/17/2022 18:40:51 11/17/19 23 11/17/2022 urina lysis , dipst ick Unknown Analyte Normal = negati ve Not Available [facility] [address], [place], [address], 11/17/2022 18:40:51 11/17/19 23 11/17/2022 urina lysis , dipst ick Unknown Analyte Normal = Negati ve Not Available [address], [place], [address], 11/17/2022 18:40:51 11/17/19 23 11/17/2022 urina lysis , dipst ick Unknown Analyte Normal = Negati ve Not Available [address], [place], [address], 11/17/2022 18:40:51 11/17/19 23 11/17/2022 urina lysis , dipst ick Unknown Analyte Normal = 1.010, 1.015, 1.020 Not Available leena lee [address], [place], [address], 11/17/2022 18:40:51 11/17/19 23 11/17/2022 urina lysis , dipst ick Unknown Analyte Normal = Negati ve Not Available [facility] [address], [place], [address], 11/17/2022 18:40:51 11/17/19 23 11/17/2022 urina lysis , dipst ick Unknown Analyte Normal = 6.5, 7.0, 7.5, 8.0 Not Available 2099leena lee [address], [place], [address], 11/17/2022 18:40:51 11/17/19 23 11/17/2022 urina lysis , dipst ick Unknown Analyte Normal = Negati ve Not Available [facility] [address], [place], [address], 11/17/2022 18:40:51 11/17/19 23 11/17/2022 urina lysis , dipst ick Unknown Analyte Normal = 0.2, 1.0 Not Available [facility] [address], [place], [place], [address], 11/17/2022 18:40:51 11/17/19 23 11/17/2022 urina lysis , dipst ick Unknown Analyte Normal = Negati ve Not Available [facility] [address], [place], [address], 11/17/2022 18:40:51 11/17/19 23 11/17/2022 urina lysis , dipst ick Unknown Analyte Normal = Negati ve Not Available 2099leena lee [address], [place], [address], 11/17/2022 18:40:51 11/17/19 23 11/17/2022 urina lysis , dipst ick Unknown Analyte Yellow Not Available thelma [address], [place], [address], 11/17/2022 18:40:51 11/17/19 23 11/17/2022 urina lysis , dipst ick Unknown Analyte Clear Not Available thelma [address], [place], [address], 11/17/2022 18:40:51 11/17/19 23 11/17/2022 urina lysis , dipst ick Unknown Analyte Negati ve Not Available leena lee [address], [place], [place], [address], 11/17/2022 18:40:51 11/17/19 23 11/17/2022 urina lysis , dipst ick Unknown Analyte Negati ve Not Available leena lee [address], [place], [address], 11/17/2022 18:40:51 11/17/19 23 11/17/2022 urina lysis , dipst ick Unknown Analyte Negati ve Not Available leena lee [address], [place], [address], 11/17/2022 18:40:51 11/17/19 23 11/17/2022 urina lysis , dipst ick Unknown Analyte 1.020 Not Available thelma [address], [place], [address], 11/17/2022 18:40:51 11/17/19 23 11/17/2022 urina lysis , dipst ick Unknown Analyte Negati ve Not Available leena lee [address], [place], [address], 11/17/2022 18:40:51 11/17/19 23 11/17/2022 urina lysis , dipst ick Unknown Analyte 7.0 Not Available thelma [address], [place], [address], 11/17/2022 18:40:51 11/17/19 23 11/17/2022 urina lysis , dipst ick Unknown Analyte Negati ve Not Available leena lee [address], [place], [address], 11/17/2022 18:40:51 11/17/19 23 11/17/2022 urina lysis , dipst ick Unknown Analyte 0.2 E.U./d L Not Available leena [address], [place], [address], 11/17/2022 18:40:51 11/17/19 23 11/17/2022 urina lysis , dipst ick Unknown Analyte Negati ve Not Available leena lee [address], [place], [address], 11/17/2022 18:40:51 11/17/19 23 11/17/2022 urina lysis , dipst ick Unknown Analyte Negati ve Not Available leena [address], [place], [address], 11/17/2022 18:40:51 Result Notes None recorded. Problems Name Problem SNOMED Code Status Onset Date Resolution Date Notes Provider Name and Address Organization Details Recorded Time Insomnia 072252821 Active 2021 JAZMIN gaspar PA - [facility] 17:56:19 Depressive disorder 34495250 Active 2021 JAZMIN gaspar PA - [facility] 17:56:26 Bipolar disorder 98100809 Active 2021 JAZMIN KUMAR null, PA - [facility] 2 17:56:36 Migraine 82926472 Active 2021 JAZMIN KUMAR null, PA - [facility] 2 17:56:43 Gastroesophage al reflux disease 820470430 Active 2021 JAZMIN KUMAR null, PA - [facility] 2 17:56:49 Asthma 524561818 Active 2021 JAZMIN KUMAR null, PA - [facility] 2 17:56:57 Constipation 90579275 Active 2021 JAZMIN KUMAR null, PA - [facility] 2 17:57:06 Problem Notes None recorded. Medical Equipment None Reported. Allergies Allergen ID Allergen Name Allergen Category Reaction Reaction Severity Criticality Documentation Date Start Date Code Code System Note Provider Name and Address Organization Details Recorded Time 65072 Miralax medicatio n Not available Not available Not available 09/20/2022 54211 5 RxNorm JAZMIN KUMAR null, PA - [facility] 2 17:54:12 18230 amoxicill in medicatio n Not available Not available Not available 09/20/2022 723 RxNorm JAZMIN KUMAR null, PA - [facility] 2 17:54:16 43257 Product containin g penicilli n (product) medicatio n Not available Not available Not available 09/20/2022 78579 8001 SNOMED JAZMIN KUMAR null, PA - [facility] 2 17:54:22 64419 sulindac medicatio n Not available Not available Not available 09/20/2022 39342 RxNorm JAZMIN KUMAR null, PA - [facility] 2 17:54:29 21510 sennoside s, LONG-TERM medicatio n Not available Not available Not available 09/20/2022 36810 RxNorm JAZMIN KUMAR null, [facility] - [facility] [...] EDIE STEVE [address] [place], [address], EDIE - [facility] 11/02/2022 20:13:06 Date Recorded Body height Body mass index (BMI) Body weight Oxygen saturation Oxygen saturation in Arterial blood by Pulse oximetry Heart rate Respiratory rate Body temperature Systolic blood pressure Diastolic blood pressure Provider Name and Address Organization Details Last Updated DateTime 3 162.56 cm 35.9 kg/m2 27403.8 1 g 99 % 99 % 81 [...] Updated DateTime 3 162.56 cm 35.9 kg/m2 68452.8 1 g 97 % 97 % 95 /min 18 /min 97.9 [degF] 143 mm[Hg] 88 mm[Hg] Maeve Bell PA - [facility] 3 18:40:21 Date Recorded Body height Body mass index (BMI) Body weight Provider Name and Address Organization Details Last Updated DateTime 09/20/2022 162.56 cm 35.9 kg/m2 20251.81 g JAZMIN IRIZARRY - [facility] 09/20/2022 17:53:41 Social History Question Answer Notes LastModified by [employer] Details LastModified Time Tobacco Smoking Status Former Smoker JAZMIN gaspar PA - [facility] 09/20/2022 17:57:37 When Did You Quit Smoking? 1-5yearssinc elastcigaret te [email or web address] Information not available 09/20/2022 Have You Recently Traveled Abroad? No Information not available 09/20/2022 Sex: Unknown Functional Status Question Answer Note LastModified by Organizat ion Details LastModified Time Do you use any illicit or recreational drugs? No [email or web address] Information not available 09/20/2022 Do you or have you ever used any other forms of tobacco or nicotine? No [email or web address] Information not available 09/20/2022 What is your level of alcohol consumption? None [email or web address] Information not available 09/20/2022 Mental Status None recorded. Family History Relationship Description Onset Age of this Age Resolved Age Notes LastModified by Organization Details LastModified Time Father No current problems or disability [email or web address] Not available 09/20 17:57:14 Mother No current problems or disability [email or web address] Not available 09/20 17:57:14 Medical History No [...] SNOMED-CT Code Diagnosis ICD10 Code Diagnosis Note [id number] [facility] [address] [place] [address] 03/01/2018 19:08:03 03/01/2018 20:09:30 [id number] [facility] [address] [place] [address] 04/20/2021 11:47:11 04/20/2021 12:34:46 [id number] EDIE Robles [facility] [address] [place] [address] 09/20/2022 17:17:57 09/20/2022 18:38:19 Influenza caused by Influenza A virus 412319912 J09.X2 [id number] EDIE STEVE [address] [address] [place] [address] 11/02/2022 19:02:21 11/02/2022 20:15:12 Dysuria 00001195 R30.0 [id number] Sanya Suárez NP [address] [place] [address] 11/17/2022 16:39:43 11/17/2022 19:10:36 Acute urinary tract infection 946520854 N39.0 Health Concerns Section Related Observation LastModified by Organization Detai ls LastModified Time None Recorded Concern Status LastModified by Organization Details LastModified Time None Recorded Advance Directives Directive None Recorded Payers Insurance Date Sequence Insurance Name Policy Number Policy Tavarez Covered Member ID Tavarez Member ID Guarantor Name 11/17/2022 1 [facility] [place] (MEDICAID HMO) LUZ MARINARAIZAReuben Cartwright [id number] Yosvany Caregiver Notes Date Note Type Note Provider Name and Address Organization Details Recorded Time 2 text/html Sore throatReported bypatient.Notes:Pt and caregiver report cough, sore throat, congestion, fatigue x 3-4 days. Taking OTC naproxen and using albuterol as previously prescribed. Denies fever, SOB, wheezing currently. EDIE Robles [address] [place], [address], [employer] PA [facility] 09/20/2022 18:43:28 3 text/html Urinary Complaint [...] Sanya Suárez NP [address] [place], [address], [place] PA - [facility] 11/17/2022 19:08:05 OBGyn Episode No OBEpisode recorded.
== END 2025-03-20 00:01 | disposition home or self-care (01) ==
LOC: HO.XRAY
PROVIDERS: PCP Internal Medicine; Visit Provider Internal Medicine Nephrology
DX: D59.39 Other hemolytic-uremic syndrome (principal); N17.9 Acute kidney failure, unspecified
CPT/HCPCS: 36598; J1642; Q9967

== ENCOUNTER → 2025-03-20 10:45 | Outpatient (BNV) | payer OTHER, SELFPAY | PROVIDERS: PCP Internal Medicine; Visit Provider Radiology Diagnostic Radiology | DX: T82.594A Other mechanical complication of infusion catheter, initial encounter (principal) | CPT/HCPCS: 36598 ==

== ENCOUNTER 2025-03-28 15:05 | Outpatient (AMB) | payer OTHER, SELFPAY ==
--- OUTSIDE RECORDS SUMMARY | 2025-03-28 15:14 | XMS_ITS | Data Portability ---
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 Plan of Treatment Reminders Order Date Submit Date Provider Last Modified By Organization Details Last Modified Time Details Appointments None recorded. Lab urinalysis , dipstick 2022 023 [email or web address] _thelma [facility], [address] [place] [address], [phone], 3 19:07:26 test, urine 20[email or web address] [place] [address], [address] [place] [address], [phone], 3 19:07:26 culture, urine 20[email or web address] [facility], [address] [place] [address], [place], [address], 3 19:39:46 urinalysis , dipstick 2022 023 [email or web address] 2099_[facility], [address] [place] [address], [address], 3 20:12:31 test, urine 2022 023 [email or web address] 2099_[facility], [address] [place] [address], [address], 3 20:12:31 culture, urine [address] ([facility], [address] [place] [address], [place], [address], 3 15:51:57 rapid strep group A, throat 2021 022 [email or web address] 5 _[facility], [address] [place] [address], [place], [address], 2 18:30:46 rapid flu (A+B) 2021 022 5 _[facility], [address] [place] [address], [place], [address], 2 18:30:46 rapid SARS CoV 2 Ag, QL IA, respirator y specimen 2021 022 [email or web address] 5 _[facility], [address] [place] [address], [place], [address], 2 18:30:46 Referral None recorded. Procedures None recorded. Surgeries None recorded. Imaging None recorded. Medication Orders Macrobid 100 mg capsule 2022 023 [facility]acy #[id number], [facility] [facility], [place], [address], 3 19:07:28 nitrofuran toin monohydrat e/macrocry stals 100 mg capsule 2022 023 kevin [facility]/Pharmacy #[id number], [address] [facility], [place], [address], 3 18:28:08 acetaminop hen 325 mg tablet 2021 022 [facility] #[id number], [address] [facility], [place], [address], 18:43:07 Patient TargetsNo targets recorded. Patient Instructions Encounter Date Encounter Id Patient Instructions Last Modified By Organization Details Last Modified Time 09/20/2022 [id number] sore throat: rody pate instructions [email or web address] Not available 09/20/2022 18:30:46 Go to the [facility] emergency department if you develop ANY new [...] without a prescription. Drink plenty of water. [email or web address] Not available 09/20/2022 18:25:38 11/02/2022 [id number] urinary tract infection in women information [email or web address] Not available 11/02/2022 20:12:31 You are going [...] antibiotic was prescribed. Thank you for using [facility] - please don't hesistate to call our office if you have any questions or concerns. [email or web address] Not available 11/02/2022 20:12:18 11/17/2022 [id number] We recommend you get a repeat urinalysis [...] men Unknown Analyte negati ve Not Available _[address], [address], 09/20/2022 17:57:52 09/20/20 22 09/20/2022 rapid strep group A, throa t Unknown Analyte negati ve Not Available [address] [place] [address], [address], 09/20/2022 17:52:10 09/20/20 22 09/20/2022 rapid flu (A+B) Unknown Analyte positi ve Not Available [address] [place] [address], [address], 09/20/2022 17:57:47 09/20/20 22 09/20/2022 rapid flu (A+B) Unknown Analyte negati ve Not Available [address] [place] [address], [address], 09/20/2022 17:57:47 11/02/19 23 11/02/2022 pregn angela test, urine Unknown Analyte Normal = Negati ve Not Available 2099leena lee [address], [place], [address], 11/02/2022 20:03:07 11/02/19 23 11/02/2022 pregn angela test, urine Unknown Analyte negati ve Not Available 2099leena lee [address], [place], [address], 11/02/2022 20:03:07 11/02/1911/02/2022 urina lysis , dipst ick Unknown Analyte Normal = light yellow Not Available leena lee [address], [place], [address], 11/02/2022 19:48:57 11/02/1911/02/2022 urina lysis , dipst ick Unknown Analyte Light Yellow Not Available 2099leena lee [address], [place], [place], [address], 11/02/2022 19:48:57 11/02/19 23 11/02/2022 urina lysis , dipst ick Unknown Analyte Normal = clear Not Available leena lee [address], [place], [place], [address], 11/02/2022 19:48:57 11/02/19 23 11/02/2022 urina lysis , dipst ick Unknown Analyte Clear Not Available thelma [address], [place], [address], 11/02/2022 19:48:57 11/02/19 23 11/02/2022 urina lysis , dipst ick Unknown Analyte Normal = negati ve Not Available leena lee [address], [place], [address], 11/02/2022 19:48:57 11/02/19 23 11/02/2022 urina lysis , dipst ick Unknown Analyte Negati ve Not Available leena lee [address], [place], [address], 11/02/2022 19:48:57 11/02/19 23 11/02/2022 urina lysis , dipst ick Unknown Analyte Normal = Negati ve Not Available leena lee [address], [place], [address], 11/02/2022 19:48:57 11/02/1911/02/2022 urina lysis , dipst ick Unknown Analyte Negati ve Not Available [facility] [address], [place], [address], 11/02/2022 19:48:57 11/02/1911/02/2022 urina lysis , dipst ick Unknown Analyte Normal = Negati ve Not Available leena [address], [place], [address], 11/02/2022 19:48:57 11/02/1911/02/2022 urina lysis , dipst ick Unknown Analyte Negati ve Not Available [facility] [address], [place], [address], 11/02/2022 19:48:57 11/02/19 23 11/02/2022 urina lysis , dipst ick Unknown Analyte Normal = 1.010, 1.015, 1.020 Not Available leena lee [address], [place], [address], 11/02/2022 19:48:57 11/02/19 23 11/02/2022 urina lysis , dipst ick Unknown Analyte 1.020 Not Available [address], [place], [address], 11/02/2022 19:48:57 11/02/1911/02/2022 urina lysis , dipst ick Unknown Analyte Normal = Negati ve Not Available leena lee [address], [place], [address], 11/02/2022 19:48:57 11/02/19 23 11/02/2022 urina lysis , dipst ick Unknown Analyte Negati ve Not Available [facility], [place], [address], 11/02/2022 19:48:57 11/02/1911/02/2022 urina lysis , dipst ick Unknown Analyte Normal = 6.5, 7.0, 7.5, 8.0 Not Available leena pe [address], [place], [address], 11/02/2022 19:48:57 11/02/1911/02/2022 urina lysis , dipst ick Unknown Analyte 6.5 Not Available [facility], [place], [address], 11/02/2022 19:48:57 11/02/19 23 11/02/2022 urina lysis , dipst ick Unknown Analyte Normal = Negati ve Not Available [facility], [place], [address], 11/02/2022 19:48:57 11/02/1911/02/2022 urina lysis , dipst ick Unknown Analyte Negati ve Not Available leena pe [address], [place], [address], 11/02/2022 19:48:57 11/02/19 11/02/2022 urina lysis , dipst ick Unknown Analyte Normal = 0.2, 1.0 Not Available leena lee [address], [place], [address], 11/02/2022 19:48:57 11/02/19 23 11/02/2022 urina lysis , dipst ick Unknown Analyte 0.2 E.U./d L Not Available 2099leena [address], [place], [address], 11/02/2022 19:48:57 11/02/1911/02/2022 urina lysis , dipst ick Unknown Analyte Normal = Negati ve Not Available [facility] [address], [place], [address], 11/02/2022 19:48:57 11/02/19 23 11/02/2022 urina lysis , dipst ick Unknown Analyte Negati ve Not Available leena [address], [place], [address], 11/02/2022 19:48:57 11/02/19 23 11/02/2022 urina lysis , dipst ick Unknown Analyte Normal = Negati ve Not Available [facility] [address], [place], [address], 11/02/2022 19:48:57 11/02/19 23 11/02/2022 urina lysis , dipst ick Unknown Analyte Negati ve Not Available [facility] [address], [place], [address], 11/02/2022 19:48:57 11/17/19 23 11/17/2022 pregn angela test, urine Unknown Analyte Normal = Negati ve Not Available [address], [place], [address], 11/17/2022 18:41:03 11/17/19 23 11/17/2022 pregn angela test, urine Unknown Analyte negati ve Not Available leena lee [address], [place], [address], 11/17/2022 18:41:03 11/17/19 23 11/17/2022 urina lysis , dipst ick Unknown Analyte Normal = light yellow Not Available [facility] [address], [place], [address], 11/17/2022 18:40:51 11/17/19 23 11/17/2022 urina lysis , dipst ick Unknown Analyte Normal = clear Not Available [address], [place], [address], 11/17/2022 18:40:51 11/17/19 23 11/17/2022 urina lysis , dipst ick Unknown Analyte Normal = negati ve Not Available [facility] [address], [place], [address], 11/17/2022 18:40:51 11/17/19 23 11/17/2022 urina lysis , dipst ick Unknown Analyte Normal = Negati ve Not Available [address], [place], [address], 11/17/2022 18:40:51 11/17/19 23 11/17/2022 urina lysis , dipst ick Unknown Analyte Normal = Negati ve Not Available [address], [place], [address], 11/17/2022 18:40:51 11/17/19 23 11/17/2022 urina lysis , dipst ick Unknown Analyte Normal = 1.010, 1.015, 1.020 Not Available leena lee [address], [place], [address], 11/17/2022 18:40:51 11/17/19 23 11/17/2022 urina lysis , dipst ick Unknown Analyte Normal = Negati ve Not Available [facility] [address], [place], [address], 11/17/2022 18:40:51 11/17/19 23 11/17/2022 urina lysis , dipst ick Unknown Analyte Normal = 6.5, 7.0, 7.5, 8.0 Not Available 2099leena lee [address], [place], [address], 11/17/2022 18:40:51 11/17/19 23 11/17/2022 urina lysis , dipst ick Unknown Analyte Normal = Negati ve Not Available [facility] [address], [place], [address], 11/17/2022 18:40:51 11/17/19 23 11/17/2022 urina lysis , dipst ick Unknown Analyte Normal = 0.2, 1.0 Not Available [facility] [address], [place], [place], [address], 11/17/2022 18:40:51 11/17/19 23 11/17/2022 urina lysis , dipst ick Unknown Analyte Normal = Negati ve Not Available [facility] [address], [place], [address], 11/17/2022 18:40:51 11/17/19 23 11/17/2022 urina lysis , dipst ick Unknown Analyte Normal = Negati ve Not Available 2099leena lee [address], [place], [address], 11/17/2022 18:40:51 11/17/19 23 11/17/2022 urina lysis , dipst ick Unknown Analyte Yellow Not Available thelma [address], [place], [address], 11/17/2022 18:40:51 11/17/19 23 11/17/2022 urina lysis , dipst ick Unknown Analyte Clear Not Available thelma [address], [place], [address], 11/17/2022 18:40:51 11/17/19 23 11/17/2022 urina lysis , dipst ick Unknown Analyte Negati ve Not Available leena lee [address], [place], [place], [address], 11/17/2022 18:40:51 11/17/19 23 11/17/2022 urina lysis , dipst ick Unknown Analyte Negati ve Not Available leena lee [address], [place], [address], 11/17/2022 18:40:51 11/17/19 23 11/17/2022 urina lysis , dipst ick Unknown Analyte Negati ve Not Available leena lee [address], [place], [address], 11/17/2022 18:40:51 11/17/19 23 11/17/2022 urina lysis , dipst ick Unknown Analyte 1.020 Not Available thelma [address], [place], [address], 11/17/2022 18:40:51 11/17/19 23 11/17/2022 urina lysis , dipst ick Unknown Analyte Negati ve Not Available leena lee [address], [place], [address], 11/17/2022 18:40:51 11/17/19 23 11/17/2022 urina lysis , dipst ick Unknown Analyte 7.0 Not Available thelma [address], [place], [address], 11/17/2022 18:40:51 11/17/19 23 11/17/2022 urina lysis , dipst ick Unknown Analyte Negati ve Not Available leena lee [address], [place], [address], 11/17/2022 18:40:51 11/17/19 23 11/17/2022 urina lysis , dipst ick Unknown Analyte 0.2 E.U./d L Not Available leena [address], [place], [address], 11/17/2022 18:40:51 11/17/19 23 11/17/2022 urina lysis , dipst ick Unknown Analyte Negati ve Not Available leena lee [address], [place], [address], 11/17/2022 18:40:51 11/17/19 23 11/17/2022 urina lysis , dipst ick Unknown Analyte Negati ve Not Available leena [address], [place], [address], 11/17/2022 18:40:51 Result Notes None recorded. Problems Name Problem SNOMED Code Status Onset Date Resolution Date Notes Provider Name and Address Organization Details Recorded Time Insomnia 099494284 Active 2021 JAZMIN gaspar PA - [facility] 17:56:19 Depressive disorder 02876619 Active 2021 JAZMIN gaspar PA - [facility] 17:56:26 Bipolar disorder 13610489 Active 2021 JAZMIN KUMAR null, PA - [facility] 2 17:56:36 Migraine 45957148 Active 2021 JAZMIN KUMAR null, PA - [facility] 2 17:56:43 Gastroesophage al reflux disease 456171609 Active 2021 JAZMIN KUMAR null, PA - [facility] 2 17:56:49 Asthma 523354836 Active 2021 JAZMIN KUMAR null, PA - [facility] 2 17:56:57 Constipation 21055594 Active 2021 JAZMIN KUMAR null, PA - [facility] 2 17:57:06 Problem Notes None recorded. Medical Equipment None Reported. Allergies Allergen ID Allergen Name Allergen Category Reaction Reaction Severity Criticality Documentation Date Start Date Code Code System Note Provider Name and Address Organization Details Recorded Time 20166 Miralax medicatio n Not available Not available Not available 09/20/2022 15911 5 RxNorm JAZMIN KUMAR null, PA - [facility] 2 17:54:12 40378 amoxicill in medicatio n Not available Not available Not available 09/20/2022 723 RxNorm JAZMIN KUMAR null, PA - [facility] 2 17:54:16 98529 Product containin g penicilli n (product) medicatio n Not available Not available Not available 09/20/2022 39310 8001 SNOMED JAZMIN KUMAR null, PA - [facility] 2 17:54:22 74327 sulindac medicatio n Not available Not available Not available 09/20/2022 02538 RxNorm JAZMIN KUMAR null, PA - [facility] 2 17:54:29 00990 sennoside s, HALFWAY medicatio n Not available Not available Not available 09/20/2022 72258 RxNorm JAZMIN KUMAR null, [facility] - [facility] [...] EDIE STEVE [address] [place], [address], EDIE - [facility] 11/02/2022 20:13:06 Date Recorded Body height Body mass index (BMI) Body weight Oxygen saturation Oxygen saturation in Arterial blood by Pulse oximetry Heart rate Respiratory rate Body temperature Systolic blood pressure Diastolic blood pressure Provider Name and Address Organization Details Last Updated DateTime 3 162.56 cm 35.9 kg/m2 13906.8 1 g 99 % 99 % 81 [...] Updated DateTime 3 162.56 cm 35.9 kg/m2 87263.8 1 g 97 % 97 % 95 /min 18 /min 97.9 [degF] 143 mm[Hg] 88 mm[Hg] Maeve Bell PA - [facility] 3 18:40:21 Date Recorded Body height Body mass index (BMI) Body weight Provider Name and Address Organization Details Last Updated DateTime 09/20/2022 162.56 cm 35.9 kg/m2 68746.81 g JAZMIN IRIZARRY - [facility] 09/20/2022 17:53:41 Social History Question Answer Notes LastModified by [employer] Details LastModified Time Tobacco Smoking Status Former Smoker JAZMIN gaspar PA - [facility] 09/20/2022 17:57:37 When Did You Quit Smoking? 1-5yearssinc elastcigaret te [email or web address] Information not available 09/20/2022 Have You Recently Traveled Abroad? No [email or web address] Information not available 09/20/2022 Sex: Unknown Functional Status Question Answer Note LastModified by Organizat ion Details LastModified Time Do you use any illicit or recreational drugs? No [email or web address] Information not available 09/20/2022 Do you or have you ever used any other forms of tobacco or nicotine? No [email or web address] Information not available 09/20/2022 What is your level of alcohol consumption? None [email or web address] Information not available 09/20/2022 Mental Status None recorded. Family History Relationship Description Onset Age of this Age Resolved Age Notes LastModified by Organization Details LastModified Time Father No current problems or disability [email or web address] Not available 09/20 17:57:14 Mother No current problems or disability [email or web address] Not available 09/20 17:57:14 Medical History No [...] SNOMED-CT Code Diagnosis ICD10 Code Diagnosis Note [id number] [facility] [address] [place] [address] 03/01/2018 19:08:03 03/01/2018 20:09:30 [id number] [facility] [address] [place] [address] 04/20/2021 11:47:11 04/20/2021 12:34:46 [id number] EDIE Robles [facility] [address] [place] [address] 09/20/2022 17:17:57 09/20/2022 18:38:19 Influenza caused by Influenza A virus 572544065 J09.X2 [id number] EDIE STEVE [address] [address] [place] [address] 11/02/2022 19:02:21 11/02/2022 20:15:12 Dysuria 92772388 R30.0 [id number] Sanya Suárez NP [address] [place] [address] 11/17/2022 16:39:43 11/17/2022 19:10:36 Acute urinary tract infection 650994141 N39.0 Health Concerns Section Related Observation LastModified by Organization Detai ls LastModified Time None Recorded Concern Status LastModified by Organization Details LastModified Time None Recorded Advance Directives Directive None Recorded Payers Insurance Date Sequence Insurance Name Policy Number Policy Tavarez Covered Member ID Tavarez Member ID Guarantor Name 11/17/[address] [facility] - HEALTH NET PLAN (MEDICAID HMO) LUZ MARINARAIZAReuben Cartwright [id number] Yosvany Caregiver Notes Date Note Type Note Provider Name and Address Organization Details Recorded Time 2 text/html Sore throatReported bypatient.Notes:Pt and caregiver report cough, sore throat, congestion, fatigue x 3-4 days. Taking OTC naproxen and using albuterol as previously prescribed. Denies fever, SOB, wheezing currently. EDIE Robles [address] [place], [address], [employer] PA [facility] 09/20/2022 18:43:28 3 text/html Urinary Complaint [...] Sanya Suárez NP [address] [place], [address], [place] - [facility] 11/17/2022 19:08:05 OBGyn Episode No OBEpisode recorded.
--- NOTE | 2025-03-28 15:33 | HO.NEPHOV ---
Vital Signs 03/28/25 15:34 Height 5 ft 3 in Weight 206 lb BMI 36.5 BP 126/70 Blood Pressure Location Rt brachial Position Sitting Intake Visit Reasons: 1 MO FU-[place] w/maddison Wax Pumper Required: No Accompanied by: Other Relationship Allergies amoxicillin (AMOXICILLIN) Allergy (Severe, Verified 03/28/25 15:35) ANAPHYLAXIS, swelling Penicillins (PENICILLINS) Allergy (Severe, Verified 03/28/25 15:35) ANAPHYLAXIS polyethylene glycol 3350 (From MIRALAX) Allergy (Severe, Verified 03/28/25 15:35) ANAPHYLAXIS sulindac (SULINDAC) Allergy (Severe, Verified 03/28/25 15:35) SWELLING senna Allergy (Intermediate, Verified 03/28/25 15:35) Unknown seafood Allergy (Verified 03/28/25 15:35) Hives Do you need a note to return to daycare/school/sports/work: No HPI Comments Details: 35-year-old female with pertinent history of mood disorder, gastroesophageal reflux disease, mild intellectual disability, hypertension initially presented to the emergency department for evaluation of nausea and vomiting. She had been having nausea and multiple episodes of nonbloody emesis throughout the day prior to presentation. She also has been having abdominal discomfort at that time which is generalized, constant, not related to food intake, nonradiating, nonprogressive and without any relieving factors. Patient had not been taking her p.o. antihypertensives for the last few days. She had reduced p.o. intake as she is unable to hold anything down due to nausea and vomiting. She denied fever, chills or diarrhea. She has no palpitation, shortness of breath, changes in urinary habits. She has no history of diabetes mellitus, palpitation, orthostasis. Her renal function had been getting worse and now has been having worsening proteinuria. She denied using drugs other than Marijuana. She does not takes nonsteroidal anti-inflammatories regularly. 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 Her mental status was at baseline. She was transferred to [facility] [place]LEX/Eculizimab. 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 She had acute hypoxic respiratory failure in hospital with worsening renal function. She responded well to diuresis. She had elevated LDH, thrombocytopenia, decreased haptoglobin with schistocytes on peripheral smear. ADAMTS 13 was negative. Had her femoral HD catheter removed on 01/10/2025. Did not have any renal biopsy. She had steroids and was started on Eculizumab 900 mg weekly for 4 weeks ( 01/06/25, 01/13/25, 01/20/25 and 4th dose given this week). Received meningococcal vaccination and was started on Azithromycin 500 mg daily for 2 weeks ( penicillin allergy) while on eculizumab. She continues to have good urine output. Her GFR has improved. She has no edema or any other symptoms other than nausea at times. Her appetite is good and denies any SOB, PND, orthopnea or any uremic symptoms. She had hypertensive emergency during hospital stay which improved with medications. She has been having difficulties in blood draws and medication administration due to poor veins and had a port a cath inserted but is awaiting a revision due to issues with it .Her renal functions has been improving & remains on eculzimab [facility] Medical History NSTEMI (non-ST elevated myocardial infarction) Possible exposure to STD Breast mass, right Morbid obesity with BMI of 40.0-44.9, adult Hypertension Annual visit for general adult medical examination with abnormal findings Heart murmur, systolic Breast pain Right Achilles tendinitis Erythema intertrigo External hemorrhoids Bleeding hemorrhoids Vitamin D deficiency Heel callus Mild intermittent asthma in adult without complication Ex-cigarette smoker Motion sickness Mild intellectual disability Porcelain gallbladder Migraine Depression with anxiety Dysmenorrhea 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 Brother No problems noted. Brother No problems noted. Maternal Aunt Breast cancer Maternal Grandmother Hypertension Social History Household Members: Caregiver Housing: House Housing Other:: senior living Are you a primary property caretaker to a significant other at home: No Do you presently have visiting nurse or other home services: No Alcohol intake: never Patient Tobacco Use Status: Never used Tobacco Tobacco use type: Cigarette Years Smoked: 19 e-Cigarette/Vaping Use: Never Used Second Hand Smoke Exposure: No Use of substances other than those prescribed or required for medical reasons: No Substance Use Type: Marijuana Advance Directives: No Advance Directives Information Provided: Yes service: No 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al status: disabled 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 Cognitive needs: No Hearing needs: No Vision needs: Yes Female Reproductive History Menstrual Age of Menarche: 13 Review of Systems Const All systems reviewed & are unremarkable except as noted in HPI and below Physical Exam Vital Signs: Last Vital Signs BP 126/70 03/28/25 15:34 BMI result Body Mass Index 36.5 Const General: comfortable and no acute distress Orientation/consciousness: patient oriented x3 HEENT Head: Yes normocephalic Mouth: Normal oral and palatal mucosa present Neck Neck: Yes supple Resp Auscultation: clear to auscultation bilaterally Cardio Jugular venous distension: no JVD Rate: regular rate GI Palpation (GI): Soft to palpation Auscultation: normal bowel sounds General: Yes no CVA tenderness Back/Spine/Pelvis Back: no CVA tenderness Skin General skin exam: no rashes or lesions noted Neuro General: patient oriented x3 and moves all extremities Extrem General: Yes no pedal edema Results Reviewed Nephrology Results: Hgb, (12.0-16.0) 8.8 g/dl L 04/03/25 WBC, (4.8-10.8) 4.0 X10*3/uL L 04/03/25 Plt Count, (160-400) 152 X10*3/uL L 04/03/25 Sodium, (135-145) 139 mmol/L 04/03/25 Potassium, (3.3-5.1) 3.8 mmol/L 04/03/25 Chloride, (96-108) 108 mmol/L 04/03/25 Carbon Dioxide, (22-29) 24 mmol/L 04/03/25 BUN, (9-16) 20 mg/dL H 04/03/25 Creatinine, (0.5-1.4) 2.60 mg/dL H 04/03/25 Calcium, (8.4-10.2) 8.5 mg/dL 04/03/25 Phosphorus, (2.7-4.5) 2.6 mg/dL L 04/03/25 Urine Protein, (Neg-Trace) 300 (3+) mg/dL H 02/25/25 Urine Creatinine 59.56 mg/dL 04/03/25 Protein/Creatinin Ratio, (<0.2) 1.34 H 04/03/25 Renal US 12/27/24 Assessment & Plan Assessment & Plan (1) PEYTON (acute kidney injury): Code(s): N17.9 - Acute kidney failure, unspecified Category: Medical (2) Hypertension: Code(s): I10 - Essential (primary) hypertension Category: Medical Qualifiers: Hypertension type: primary hypertension Qualified Code(s): I10 - Essential (primary) hypertension (3) Vitamin D deficiency: Code(s): E55.9 - Vitamin D deficiency, unspecified Category: Medical (4) Proteinuria: Code(s): R80.9 - Proteinuria, unspecified Category: Medical Qualifiers: Proteinuria type: other Qualified Code(s): R80.8 - Other proteinuria (5) Atypical hemolytic uremic syndrome: Code(s): D59.39 - Other hemolytic-uremic syndrome Category: Medical (6) Anemia due to chronic kidney disease: Code(s): N18.9 - Chronic kidney disease, unspecified; D63.1 - Anemia in chronic kidney disease Category: Medical Qualifiers: Chronic kidney disease stage: stage 4 (GFR 15-29) Qualified Code(s): N18.4 - Chronic kidney disease, stage 4 (severe); D63.1 - Anemia in chronic kidney disease Plan She had H/O worsening of renal function with drop in her platelet count 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 She was transferred to [facility] [place] for PLEX/Eculizimab. 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 She had acute hypoxic respiratory failure in hospital with worsening renal function. She responded well to diuresis. She had elevated LDH, thrombocytopenia, decreased haptoglobin with schistocytes on peripheral smear. ADAMTS 13 was negative. Had her femoral HD catheter removed on 01/10/2025. Did not have any renal biopsy. She had steroids and was started on Eculizumab 900 mg weekly for 4 weeks ( 01/06/25, 01/13/25, 01/20/25 and 4th dose was given this week). Received meningococcal vaccination and was started on Azithromycin 500 mg daily for 2 weeks ( penicillin allergy) while on eculizumab. She continues to have good urine output. Her GFR is improving. She has no edema. Her appetite is good and denies any SOB, PND, orthopnea or any uremic symptoms. She has H/O hypertensive emergency but the BP is at goal now. I have arranged further doses of Eculizumab in [facility] every 2 weeks. I also have ordered a piter cath revison by IR. She may need Procrit. Follow up labs ordered & F/U appointment given Orders: Orders Blood Urea Nitrogen 04/03/25 Lincoln Willson MD N17.9 - Acute kidney failure, unspecified Protein Creatinine Ratio, Ur 04/03/25 Lincoln Willson MD N17.9 - Acute kidney failure, unspecified Complement C3 04/03/25 Lincoln Willson MD N17.9 - Acute kidney failure, unspecified Complement C4 04/03/25 Lincoln Willson MD N17.9 - Acute kidney failure, unspecified Complete Blood Count Auto Diff 04/03/25 Lincoln Willson MD N17.9 - Acute kidney failure, unspecified Creatinine 04/03/25 Lincoln Willson MD N17.9 - Acute kidney failure, unspecified Electrolytes 04/03/25 Lincoln Willson MD N17.9 - Acute kidney failure, unspecified Calcium 04/03/25 Lincoln Willson MD N17.9 - Acute kidney failure, unspecified Phosphorus 04/03/25 Lincoln Willson MD N17.9 - Acute kidney failure, unspecified IR cvc insert central tunnel 04/01/25 Swapna Mlaagon, DNP, COMPUTER NETWORK SUPPORT SPECIALIST-BC D59.39 - Other hemolytic-uremic syndrome Coding Level of Care Code Est Pt Level 4 (93769) Diagnoses PEYTON (acute kidney injury) N17.9 Primary hypertension I10 Hypertension type: primary hypertension Vitamin D deficiency E55.9 Other proteinuria R80.8 Proteinuria type: other Atypical hemolytic uremic syndrome D59.39 Anemia due to stage 4 chronic kidney disease N18.4; D63.1 Chronic kidney disease stage: stage 4 (GFR 15-29)
[2025-03-28 15:34] VITALS: BP 126/70; BMI 36.5
== END 2025-03-28 16:02 | disposition home or self-care (01) ==
LOC: HO.HKA 15:06
PROVIDERS: PCP Internal Medicine; Visit Provider Internal Medicine Nephrology
DX: N17.9 Acute kidney failure, unspecified (principal); I12.9 Hypertensive chronic kidney disease with stage 1 through stage 4 chronic kidney disease, or unspecified chronic kidney disease; E55.9 Vitamin D deficiency, unspecified; R80.8 Other proteinuria; D59.39 Other hemolytic-uremic syndrome; N18.4 Chronic kidney disease, stage 4 (severe); D63.1 Anemia in chronic kidney disease
CPT/HCPCS: 99214

== ENCOUNTER → 2025-03-28 15:05 | Outpatient (BNVA) | payer OTHER, SELFPAY | PROVIDERS: PCP Internal Medicine; Visit Provider Internal Medicine Nephrology | DX: I10 Essential (primary) hypertension (principal); N17.9 Acute kidney failure, unspecified; R80.8 Other proteinuria; D59.39 Other hemolytic-uremic syndrome; D63.1 Anemia in chronic kidney disease; E55.9 Vitamin D deficiency, unspecified; N18.4 Chronic kidney disease, stage 4 (severe) | CPT/HCPCS: 99212 ==

== ENCOUNTER 2025-04-01 13:33 | Day surgery (SDC) | payer OTHER, SELFPAY ==
--- OUTSIDE RECORDS SUMMARY | 2025-03-25 13:38 | XMS_ITS | Data Portability ---
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 Plan of Treatment Reminders Order Date Submit Date Provider Last Modified By Organization Details Last Modified Time Details Appointments None recorded. Lab urinalysis , dipstick 2022 023 [email or web address] _thelma [facility], [address] [place] [address], [address], 3 19:07:26 test, urine 2022 [email or web address] [place] [address], [address] [place] [address], [address], 3 19:07:26 culture, urine 2022 023 [email or web address] [facility], [address] [place] [address], [place], [address], 3 19:39:46 urinalysis , dipstick 2022 023 [email or web address] 2099_[facility], [address] [place] [address], [address], 3 20:12:31 test, urine 2022 023 2099_[facility], [address] [place] [address], [address], 3 20:12:31 culture, urine [address] ([facility], [address] [place] [address], [place], [address], 3 15:51:57 rapid strep group A, throat 2021 022 [email or web address] 5 _[facility], [address] [place] [address], [place], [address], 2 18:30:46 rapid flu (A+B) 2021 022 5 _[facility], [address] [place] [address], [place], [address], 2 18:30:46 rapid SARS CoV 2 Ag, QL IA, respirator y specimen 2021 022 [email or web address] 5 _[facility], [address] [place] [address], [place], [address], 2 18:30:46 Referral None recorded. Procedures None recorded. Surgeries None recorded. Imaging None recorded. Medication Orders Macrobid 100 mg capsule 2022 023 [facility]acy [facility][id number], [facility] [facility], [place], [address], 3 19:07:28 nitrofuran toin monohydrat e/macrocry stals 100 mg capsule 2022 023 kevin [facility]/Pharmacy #2339, [address] [facility], [place], [address], 3 18:28:08 acetaminop hen 325 mg tablet 2021 022 [facility]armacy #2339, [address] [facility], [place], [address], 18:43:07 Patient TargetsNo targets recorded. Patient Instructions Encounter Date Encounter Id Patient Instructions Last Modified By Organization Details Last Modified Time 09/20/2022 [id number] sore throat: rdoy pate instructions [email or web address] Not available 09/20/2022 18:30:46 Go to the [facility] emergency department if you develop ANY new [...] without a prescription. Drink plenty of water. [email or web address] Not available 09/20/2022 18:25:38 11/02/2022 [id number] urinary tract infection in women information [email or web address] Not available 11/02/2022 20:12:31 You are going [...] antibiotic was prescribed. Thank you for using [employer] - please don't hesistate to call our office if you have any questions or concerns. [email or web address] Not available 11/02/2022 20:12:18 11/17/2022 [id number] We recommend you get a repeat urinalysis [...] a visit to the nearest Emergency Department. [email or web address] Not available 11/17/2022 19:07:24 Reason for Referral None Reported. Results Created Date Observation Date Name Description Value Unit Range Abnormal Flag Note LastModifiedBy Organization Detail LastModifiedTime 09/20/20 22 09/20/2022 rapid SARS CoV 2 Ag, QL IA, respi rator y speci men Unknown Analyte negati ve Not Available _[address], [address], 09/20/2022 17:57:52 09/20/20 22 09/20/2022 rapid strep group A, throa t Unknown Analyte negati ve Not Available [address] [place] [address], [address], 09/20/2022 17:52:10 09/20/20 22 09/20/2022 rapid flu (A+B) Unknown Analyte positi ve Not Available [address] [place] [address], [address], 09/20/2022 17:57:47 09/20/20 22 09/20/2022 rapid flu (A+B) Unknown Analyte negati ve Not Available [address] [place] [address], [address], 09/20/2022 17:57:47 11/02/19 23 11/02/2022 pregn angela test, urine Unknown Analyte Normal = Negati ve Not Available 2099leena lee [address], [place], [address], 11/02/2022 20:03:07 11/02/19 23 11/02/2022 pregn angela test, urine Unknown Analyte negati ve Not Available 2099leena lee [address], [place], [address], 11/02/2022 20:03:07 11/02/1911/02/2022 urina lysis , dipst ick Unknown Analyte Normal = light yellow Not Available leena lee [address], [place], [address], 11/02/2022 19:48:57 11/02/1911/02/2022 urina lysis , dipst ick Unknown Analyte Light Yellow Not Available 2099leena lee [address], [place], [place], [address], 11/02/2022 19:48:57 11/02/19 23 11/02/2022 urina lysis , dipst ick Unknown Analyte Normal = clear Not Available leena lee [address], [place], [place], [address], 11/02/2022 19:48:57 11/02/19 23 11/02/2022 urina lysis , dipst ick Unknown Analyte Clear Not Available thelma [address], [place], [address], 11/02/2022 19:48:57 11/02/19 23 11/02/2022 urina lysis , dipst ick Unknown Analyte Normal = negati ve Not Available leean lee [address], [place], [address], 11/02/2022 19:48:57 11/02/19 23 11/02/2022 urina lysis , dipst ick Unknown Analyte Negati ve Not Available leena lee [address], [place], [address], 11/02/2022 19:48:57 11/02/19 23 11/02/2022 urina lysis , dipst ick Unknown Analyte Normal = Negati ve Not Available leena lee [address], [place], [address], 11/02/2022 19:48:57 11/02/1911/02/2022 urina lysis , dipst ick Unknown Analyte Negati ve Not Available [facility] [address], [place], [address], 11/02/2022 19:48:57 11/02/1911/02/2022 urina lysis , dipst ick Unknown Analyte Normal = Negati ve Not Available leena [address], [place], [address], 11/02/2022 19:48:57 11/02/1911/02/2022 urina lysis , dipst ick Unknown Analyte Negati ve Not Available [facility] [address], [place], [address], 11/02/2022 19:48:57 11/02/19 23 11/02/2022 urina lysis , dipst ick Unknown Analyte Normal = 1.010, 1.015, 1.020 Not Available leena lee [address], [place], [address], 11/02/2022 19:48:57 11/02/19 23 11/02/2022 urina lysis , dipst ick Unknown Analyte 1.020 Not Available [address], [place], [address], 11/02/2022 19:48:57 11/02/1911/02/2022 urina lysis , dipst ick Unknown Analyte Normal = Negati ve Not Available leena lee em[address], [place], [address], 11/02/2022 19:48:57 11/02/19 23 11/02/2022 urina lysis , dipst ick Unknown Analyte Negati ve Not Available [facility], [place], [address], 11/02/2022 19:48:57 11/02/1911/02/2022 urina lysis , dipst ick Unknown Analyte Normal = 6.5, 7.0, 7.5, 8.0 Not Available leena pe emem[address], [place], [address], 11/02/2022 19:48:57 11/02/1911/02/2022 urina lysis , dipst ick Unknown Analyte 6.5 Not Available [facility], [place], [address], 11/02/2022 19:48:57 11/02/19 23 11/02/2022 urina lysis , dipst ick Unknown Analyte Normal = Negati ve Not Available [facility], [place], [address], 11/02/2022 19:48:57 11/02/1911/02/2022 urina lysis , dipst ick Unknown Analyte Negati ve Not Available leena pe emem[address], [place], [address], 11/02/2022 19:48:57 11/02/19 11/02/2022 urina lysis , dipst ick Unknown Analyte Normal = 0.2, 1.0 Not Available leena lee [address], [place], [address], 11/02/2022 19:48:57 11/02/19 23 11/02/2022 urina lysis , dipst ick Unknown Analyte 0.2 E.U./d L Not Available 2099leena [address], [place], [address], 11/02/2022 19:48:57 11/02/1911/02/2022 urina lysis , dipst ick Unknown Analyte Normal = Negati ve Not Available [facility] [address], [place], [address], 11/02/2022 19:48:57 11/02/19 23 11/02/2022 urina lysis , dipst ick Unknown Analyte Negati ve Not Available leena [address], [place], [address], 11/02/2022 19:48:57 11/02/19 23 11/02/2022 urina lysis , dipst ick Unknown Analyte Normal = Negati ve Not Available [facility] [address], [place], [address], 11/02/2022 19:48:57 11/02/19 23 11/02/2022 urina lysis , dipst ick Unknown Analyte Negati ve Not Available [facility] [address], [place], [address], 11/02/2022 19:48:57 11/17/19 23 11/17/2022 pregn angela test, urine Unknown Analyte Normal = Negati ve Not Available [address], [place], [address], 11/17/2022 18:41:03 11/17/19 23 11/17/2022 pregn angela test, urine Unknown Analyte negati ve Not Available leena lee [address], [place], [address], 11/17/2022 18:41:03 11/17/19 23 11/17/2022 urina lysis , dipst ick Unknown Analyte Normal = light yellow Not Available [facility] [address], [place], [address], 11/17/2022 18:40:51 11/17/19 23 11/17/2022 urina lysis , dipst ick Unknown Analyte Normal = clear Not Available [address], [place], [address], 11/17/2022 18:40:51 11/17/19 23 11/17/2022 urina lysis , dipst ick Unknown Analyte Normal = negati ve Not Available [facility] [address], [place], [address], 11/17/2022 18:40:51 11/17/19 23 11/17/2022 urina lysis , dipst ick Unknown Analyte Normal = Negati ve Not Available [address], [place], [address], 11/17/2022 18:40:51 11/17/19 23 11/17/2022 urina lysis , dipst ick Unknown Analyte Normal = Negati ve Not Available [address], [place], [address], 11/17/2022 18:40:51 11/17/19 23 11/17/2022 urina lysis , dipst ick Unknown Analyte Normal = 1.010, 1.015, 1.020 Not Available leena lee [address], [place], [address], 11/17/2022 18:40:51 11/17/19 23 11/17/2022 urina lysis , dipst ick Unknown Analyte Normal = Negati ve Not Available [facility] [address], [place], [address], 11/17/2022 18:40:51 11/17/19 23 11/17/2022 urina lysis , dipst ick Unknown Analyte Normal = 6.5, 7.0, 7.5, 8.0 Not Available 2099leena lee [address], [place], [address], 11/17/2022 18:40:51 11/17/19 23 11/17/2022 urina lysis , dipst ick Unknown Analyte Normal = Negati ve Not Available [facility] [address], [place], [address], 11/17/2022 18:40:51 11/17/19 23 11/17/2022 urina lysis , dipst ick Unknown Analyte Normal = 0.2, 1.0 Not Available [facility] [address], [place], [place], [address], 11/17/2022 18:40:51 11/17/19 23 11/17/2022 urina lysis , dipst ick Unknown Analyte Normal = Negati ve Not Available [facility] [address], [place], [address], 11/17/2022 18:40:51 11/17/19 23 11/17/2022 urina lysis , dipst ick Unknown Analyte Normal = Negati ve Not Available 2099leena lee [address], [place], [address], 11/17/2022 18:40:51 11/17/19 23 11/17/2022 urina lysis , dipst ick Unknown Analyte Yellow Not Available thelma [address], [place], [address], 11/17/2022 18:40:51 11/17/19 23 11/17/2022 urina lysis , dipst ick Unknown Analyte Clear Not Available thelma [address], [place], [address], 11/17/2022 18:40:51 11/17/19 23 11/17/2022 urina lysis , dipst ick Unknown Analyte Negati ve Not Available leena lee [address], [place], [place], [address], 11/17/2022 18:40:51 11/17/19 23 11/17/2022 urina lysis , dipst ick Unknown Analyte Negati ve Not Available leena lee [address], [place], [address], 11/17/2022 18:40:51 11/17/19 23 11/17/2022 urina lysis , dipst ick Unknown Analyte Negati ve Not Available leena lee [address], [place], [address], 11/17/2022 18:40:51 11/17/19 23 11/17/2022 urina lysis , dipst ick Unknown Analyte 1.020 Not Available thelma [address], [place], [address], 11/17/2022 18:40:51 11/17/19 23 11/17/2022 urina lysis , dipst ick Unknown Analyte Negati ve Not Available leena lee [address], [place], [address], 11/17/2022 18:40:51 11/17/19 23 11/17/2022 urina lysis , dipst ick Unknown Analyte 7.0 Not Available thelma [address], [place], [address], 11/17/2022 18:40:51 11/17/19 23 11/17/2022 urina lysis , dipst ick Unknown Analyte Negati ve Not Available leena lee [address], [place], [address], 11/17/2022 18:40:51 11/17/19 23 11/17/2022 urina lysis , dipst ick Unknown Analyte 0.2 E.U./d L Not Available leena [address], [place], [address], 11/17/2022 18:40:51 11/17/19 23 11/17/2022 urina lysis , dipst ick Unknown Analyte Negati ve Not Available leena lee [address], [place], [address], 11/17/2022 18:40:51 11/17/19 23 11/17/2022 urina lysis , dipst ick Unknown Analyte Negati ve Not Available leena [address], [place], [address], 11/17/2022 18:40:51 Result Notes None recorded. Problems Name Problem SNOMED Code Status Onset Date Resolution Date Notes Provider Name and Address Organization Details Recorded Time Insomnia 051840760 Active 2021 JAZMIN gaspar PA - [facility] 17:56:19 Depressive disorder 34311472 Active 2021 JAZMIN gaspar PA - [facility] 17:56:26 Bipolar disorder 27433643 Active 2021 JAZMIN KUMAR null, PA - [facility] 2 17:56:36 Migraine 58402618 Active 2021 JAZMIN KUMAR null, PA - [facility] 2 17:56:43 Gastroesophage al reflux disease 461755646 Active 2021 JAZMIN KUMAR null, PA - [facility] 2 17:56:49 Asthma 568182920 Active 2021 JAZMIN KUMAR null, PA - [facility] 2 17:56:57 Constipation 89503841 Active 2021 JAZMIN KUMAR null, PA - [facility] 2 17:57:06 Problem Notes None recorded. Medical Equipment None Reported. Allergies Allergen ID Allergen Name Allergen Category Reaction Reaction Severity Criticality Documentation Date Start Date Code Code System Note Provider Name and Address Organization Details Recorded Time 04266 Miralax medicatio n Not available Not available Not available 09/20/2022 02876 5 RxNorm JAZMIN KUMAR null, PA - [facility] 2 17:54:12 46755 amoxicill in medicatio n Not available Not available Not available 09/20/2022 723 RxNorm JAZMIN KUMAR null, PA - [facility] 2 17:54:16 07399 Product containin g penicilli n (product) medicatio n Not available Not available Not available 09/20/2022 19887 8001 SNOMED JAZMIN KUMAR null, PA - [facility] 2 17:54:22 42094 sulindac medicatio n Not available Not available Not available 09/20/2022 04142 RxNorm JAZMIN KUMAR null, PA - [facility] 2 17:54:29 34909 sennoside s, SNF medicatio n Not available Not available Not available 09/20/2022 59713 RxNorm JAZMIN KUMAR null, [facility] - [facility] [...] EDIE STEVE [address] [place], [address], EDIE - [facility] 11/02/2022 20:13:06 Date Recorded Body height Body mass index (BMI) Body weight Oxygen saturation Oxygen saturation in Arterial blood by Pulse oximetry Heart rate Respiratory rate Body temperature Systolic blood pressure Diastolic blood pressure Provider Name and Address Organization Details Last Updated DateTime 3 162.56 cm 35.9 kg/m2 52093.8 1 g 99 % 99 % 81 /min 20 /min 97.8 [degF] 147 mm[Hg] 98 mm[Hg] Maeve Ray PA - [facility] 3 19:44:52 Date Recorded Body height Body mass index (BMI) Body weight Oxygen saturation Oxygen saturation in Arterial blood by Pulse oximetry Heart rate Respiratory rate Body temperature Systolic blood pressure Diastolic blood pressure Provider Name and Address Organization Details Last Updated DateTime 3 162.56 cm 35.9 kg/m2 54185.8 1 g 97 % 97 % 95 /min 18 /min 97.9 [degF] 143 mm[Hg] 88 mm[Hg] Maeve Bell PA - [facility] 3 18:40:21 Date Recorded Body height Body mass index (BMI) Body weight Provider Name and Address Organization Details Last Updated DateTime 09/20/2022 162.56 cm 35.9 kg/m2 04725.81 g JAZMIN IRIZARRY - [facility] 09/20/2022 17:53:41 Social History Question Answer Notes LastModified by [employer] Details LastModified Time Tobacco Smoking Status Former Smoker JAZMIN gaspar PA - [facility] 09/20/2022 17:57:37 When Did You Quit Smoking? 1-5yearssinc elastcigaret te [email or web address] Information not available 09/20/2022 Have You Recently Traveled Abroad? No Information not available 09/20/2022 Sex: Unknown Functional Status Question Answer Note LastModified by Organizat ion Details LastModified Time Do you use any illicit or recreational drugs? No [email or web address] Information not available 09/20/2022 Do you or have you ever used any other forms of tobacco or nicotine? No [email or web address] Information not available 09/20/2022 What is your level of alcohol consumption? None [email or web address] Information not available 09/20/2022 Mental Status None recorded. Family History Relationship Description Onset Age of this Age Resolved Age Notes LastModified by Organization Details LastModified Time Father No current problems or disability [email or web address] Not available 09/20 17:57:14 Mother No current problems or disability [email or web address] Not available 09/20 17:57:14 Medical History No [...] SNOMED-CT Code Diagnosis ICD10 Code Diagnosis Note [id number] [facility] [address] [place] [address] 03/01/2018 19:08:03 03/01/2018 20:09:30 [id number] [facility] [address] [place] [address] 04/20/2021 11:47:11 04/20/2021 12:34:46 [id number] EDIE Robles [facility] [address] [place] [address] 09/20/2022 17:17:57 09/20/2022 18:38:19 Influenza caused by Influenza A virus 881352723 J09.X2 [id number] EDIE STEVE [address] [address] [place] [address] 11/02/2022 19:02:21 11/02/2022 20:15:12 Dysuria 67966296 R30.0 [id number] Sanya Suárez NP [address] [place] [address] 11/17/2022 16:39:43 11/17/2022 19:10:36 Acute urinary tract infection 037655731 N39.0 Health Concerns Section Related Observation LastModified by Organization Detai ls LastModified Time None Recorded Concern Status LastModified by Organization Details LastModified Time None Recorded Advance Directives Directive None Recorded Payers Insurance Date Sequence Insurance Name Policy Number Policy Tavarez Covered Member ID Tavarez Member ID Guarantor Name 11/17/2022 1 [facility] [facility] [place] (MEDICAID HMO) LU ZMARINARAIZAReuben Cartwright [id number] Yosvany Caregiver Notes Date Note Type Note Provider Name and Address Organization Details Recorded Time 2 text/html Sore throatReported bypatient.Notes:Pt and caregiver report cough, sore throat, congestion, fatigue x 3-4 days. Taking OTC naproxen and using albuterol as previously prescribed. Denies fever, SOB, wheezing currently. EDIE Robles [address] [place], [address], Vignani PA [facility] 09/20/2022 18:43:28 3 text/html Urinary Complaint [...] Sanya Suárez NP [address] [place], [address], [place] PA - [facility] 11/17/2022 19:08:05 OBGyn Episode No OBEpisode recorded.
[2025-04-01] VITALS (15 sets, daily range): BP systolic 152–177; BP diastolic 92–112; PULSE 73–89; RESP 13–20; TEMP 36.2–36.6; O2SAT 97–100; BMI 36.5
--- NOTE | ~2025-04-01 | IR_ITS ---
CLINICAL HISTORY: The patient presents to interventional radiology for revision of a port for long-term IV access. Port had flipped and required manual flipping to resolve. PROCEDURES: Port revision CLINICIAN: Stan Kelley NP MEDICATIONS: - Versed , Fentanyl , Lidocaine 1% SQ -Antibiotics: Vancomycin 1000 mg -For additional details, please see nursing flowsheet. Complications: None. Estimated blood loss: <5 ml Specimens: None. Contrast: None. Fluoroscopy time: 0.0 min MODERATE SEDATION TIME: 30 min PROCEDURE NOTE: The procedure, risks, benefits, and alternatives were carefully explained to the patient and written informed consent was obtained. The patient was placed supine on the fluoroscopy table. A timeout was performed. The right neck and chest was prepped and draped in usual sterile fashion. Maximum barrier technique was utilized. Preliminary fluoroscopy demonstrated proper positioning of the port. Local anesthesia was administered at the right chest with 1% lidocaine. An approximate 4 cm incision was made transversely over a pre-existing scar. Retractors were used for visualization and the lateral wing was identified of the port. A 2-0 surgipro suture was utilized within the subcutaneous tissue and through the wing hole of the port to secured in place. The port was then accessed with a robins needle successfully with proper aspiration and flushing with no impedance of flow. It was the locked with heparin per protocol.The port was then deaccessed and the incision site was closed with interrupted 3-0 Vicryl subcutaneous sutures and surgical glue. Prior to closing the skin, 500 mg of vancomycin solution was placed in the pocket. The patient tolerated the procedure well. The patient was stable after the procedure and was transferred to the PACU. The procedure was performed under moderate sedation and with a dedicated nurse with continuous monitoring of vital signs. A permanent image of the ultrasound the neck and fluoroscopic image of the chest was saved and sent to PACS. FINDINGS: 1. Properly positioned port IR/IR cva repair eli/nontun w pp IMPRESSION: Successful revision of right chest port. PLAN: - The patient will be discharged home when stable by sedation protocol. - Port may be used immediately. This procedure was performed by Stan Kelley NP and directly supervised by Juventino Cruz M.D. Electronically signed by: Juventino Cruz MD 04/07/2025 04:38 PM EDT
--- NOTE | 2025-04-01 15:39 | PC.NURSE ---
report given to raya. left pre-op at 1538.
[2025-04-01] MEDS: oxyCODONE HCl Immed Release 5 MG TABLET PO (17:30)
[2025-04-02 06:31] LABS: Glucose, Whole Blood 93 mg/dL (60-115)
== END 2025-04-01 17:58 | disposition home or self-care (01) ==
PROVIDERS: PCP Internal Medicine; Visit Provider Internal Medicine Nephrology
DX: T82.524A Displacement of infusion catheter, initial encounter (principal); Z45.2 Encounter for adjustment and management of vascular access device; D59.39 Other hemolytic-uremic syndrome
CPT/HCPCS: 36576; 82947; 99152; 99153; C1769; J0690; J1642; J2003; J2004; J2250; J3010; J3370; J3373

== ENCOUNTER → 2025-04-01 15:00 | Outpatient (BNV) | payer OTHER, SELFPAY | PROVIDERS: PCP Internal Medicine | DX: T82.524A Displacement of infusion catheter, initial encounter (principal) | CPT/HCPCS: 36576; 77001; 99152 ==

== ENCOUNTER 2025-04-25 15:56 | Outpatient (AMB) | payer OTHER, SELFPAY ==
--- OUTSIDE RECORDS SUMMARY | 2025-04-25 15:58 | XMS_ITS | Clinical Summary ---
Author Organization [employer] it Address [address] [place] [address] Care Team Providers Care Customer Service Cashier Name Role Phone Fernandez Tyler MD Primary Care Provider [phone] Surgical History Surgery Date Site/Laterality Comments BREAST [...] 5 Years) and At-Risk Patients (6 to 49 Years) (1 of 2 - PCV) 01/08/2011 Cervical Cancer Screening: P ap Smear 01/08/2013 HPV Vaccines (3 - Risk 3-dos e series) 03/20/2014 11/20/2013, 09/18/2013 HIV Screening 10/31/2023 Hepatitis C Screening 10/31/2023 Social Influencers of Health Screening 10/31/2023 Depression Screening 10/02/2024 Influenza Vaccine (#1) 2025 HIB Vaccines Aged Out No longer [...] age to complete this topic Care Teams Customer Service Cashier Relationship Specialty Start Date End Date Fernandez Tyler MD [address] [place] [address] Drive [address] [place] [address] PCP - General Internal Medicine 03/19/14
[2025-04-25 16:02] VITALS: BP 140/90; PULSE 80; O2SAT 100; BMI 36.2
--- NOTE | 2025-04-25 16:02 | HO.NEPHOV ---
Vital Signs 04/25/25 16:02 Height 5 ft 3 in Weight 204 lb 8 oz BMI 36.2 BP 140/90 H Blood Pressure Location Rt brachial Position Sitting Pulse 80 Pulse Source Pulse Oximeter Pulse Oximetry (%) 100 Oxygen Delivery Method Room Air Intake Visit Reasons: 1 MO FU-[facility] Judicial Law Clerk Required: No Accompanied by: Other Relationship Allergies amoxicillin (AMOXICILLIN) Allergy (Severe, Verified 04/25/25 16:05) ANAPHYLAXIS, swelling Penicillins (PENICILLINS) Allergy (Severe, Verified 04/25/25 16:05) ANAPHYLAXIS polyethylene glycol 3350 (From MIRALAX) Allergy (Severe, Verified 04/25/25 16:05) ANAPHYLAXIS sulindac (SULINDAC) Allergy (Severe, Verified 04/25/25 16:05) SWELLING senna Allergy (Intermediate, Verified 04/25/25 16:05) Unknown seafood Allergy (Verified 04/25/25 16:05) Hives HPI Comments Details: 35-year-old female with pertinent history of mood disorder, gastroesophageal reflux disease, mild intellectual disability, hypertension initially presented to the emergency department for evaluation of nausea and vomiting. She had been having nausea and multiple episodes of nonbloody emesis throughout the day prior to presentation. She also has been having abdominal discomfort at that time which is generalized, constant, not related to food intake, nonradiating, nonprogressive and without any relieving factors. Patient had not been taking her p.o. antihypertensives for the last few days. She had reduced p.o. intake as she is unable to hold anything down due to nausea and vomiting. She denied fever, chills or diarrhea. She has no palpitation, shortness of breath, changes in urinary habits. She has no history of diabetes mellitus, palpitation, orthostasis. Her renal function had been getting worse and now has been having worsening proteinuria. She denied using drugs other than Marijuana. She does not takes nonsteroidal anti-inflammatories regularly. 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 Her mental status was at baseline. She was transferred to [facility] for PLEX/Eculizimab. 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 She had acute hypoxic respiratory failure in hospital with worsening renal function. She responded well to diuresis. She had elevated LDH, thrombocytopenia, decreased haptoglobin with schistocytes on peripheral smear. ADAMTS 13 was negative. Had her femoral HD catheter removed on 01/10/2025. Did not have any renal biopsy. She had steroids and was started on Eculizumab 900 mg weekly for 4 weeks ( 01/06/25, 01/13/25, 01/20/25 and 4th dose given this week). Received meningococcal vaccination and was started on Azithromycin 500 mg daily for 2 weeks ( penicillin allergy) while on eculizumab. She continues to have good urine output. Her GFR has improved. She has no edema or any other symptoms other than nausea at times. Her appetite is good and denies any SOB, PND, orthopnea or any uremic symptoms. She had hypertensive emergency during hospital stay which improved with medications. She has been having difficulties in blood draws and medication administration due to poor veins and had a port a cath inserted but is awaiting a revision due to issues with it .Her renal functions has been improving & remained on eculzimab but currently has insurance issues from it and is going to be switched to Ravulizumab [facility] Medical History NSTEMI (non-ST elevated myocardial infarction) Possible exposure to STD Breast mass, right Morbid obesity with BMI of 40.0-44.9, adult Hypertension Annual visit for general adult medical examination with abnormal findings Heart murmur, systolic Breast pain Right Achilles tendinitis Erythema intertrigo External hemorrhoids Bleeding hemorrhoids Vitamin D deficiency Heel callus Mild intermittent asthma in adult without complication Ex-cigarette smoker Motion sickness Mild intellectual disability Porcelain gallbladder Migraine Depression with anxiety Dysmenorrhea 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 Brother No problems noted. Brother No problems noted. 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 Cognitive needs: No Hearing needs: No Vision needs: Yes Female Reproductive History Menstrual Age of Menarche: 13 Review of Systems Const All systems reviewed & are unremarkable except as noted in HPI and below Physical Exam Vital Signs: Last Vital Signs Pulse 80 04/25/25 16:02 BP 140/90 H 04/25/25 16:02 Pulse Ox 100 04/25/25 16:02 Oxygen Delivery Method Room Air 04/25/25 16:02 BMI result Body Mass Index 36.2 Const General: comfortable and no acute distress Orientation/consciousness: patient oriented x3 HEENT Head: Yes normocephalic Mouth: Normal oral and palatal mucosa present Eyes EOM: EOMs intact bilaterally Neck Neck: Yes supple Resp Auscultation: clear to auscultation bilaterally Cardio Jugular venous distension: no JVD Rate: regular rate GI Palpation (GI): Soft to palpation Auscultation: normal bowel sounds General: Yes no CVA tenderness Back/Spine/Pelvis Back: no CVA tenderness Skin General skin exam: no rashes or lesions noted Neuro General: patient oriented x3 and moves all extremities Extrem General: Yes no pedal edema Results Reviewed Nephrology Results: Hgb, (12.0-16.0) 8.8 g/dl L 04/03/25 WBC, (4.8-10.8) 4.0 X10*3/uL L 04/03/25 Plt Count, (160-400) 152 X10*3/uL L 04/03/25 Sodium, (135-145) 139 mmol/L 04/03/25 Potassium, (3.3-5.1) 3.8 mmol/L 04/03/25 Chloride, (96-108) 108 mmol/L 04/03/25 Carbon Dioxide, (22-29) 24 mmol/L 04/03/25 BUN, (9-16) 20 mg/dL H 04/03/25 Creatinine, (0.5-1.4) 2.60 mg/dL H 04/03/25 Calcium, (8.4-10.2) 8.5 mg/dL 04/03/25 Phosphorus, (2.7-4.5) 2.6 mg/dL L 04/03/25 Urine Protein, (Neg-Trace) 300 (3+) mg/dL H 02/25/25 Urine Creatinine 59.56 mg/dL 04/03/25 Protein/Creatinin Ratio, (<0.2) 1.34 H 04/03/25 Renal US 12/27/24 Assessment & Plan Assessment & Plan (1) PEYTON (acute kidney injury): Code(s): N17.9 - Acute kidney failure, unspecified Category: Medical (2) Atypical hemolytic uremic syndrome: Code(s): D59.39 - Other hemolytic-uremic syndrome Category: Medical Plan She had H/O worsening of renal function with drop in her platelet count 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 She was transferred to [facility] for PLEX/Eculizimab. 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 She had acute hypoxic respiratory failure in hospital with worsening renal function. She responded well to diuresis. She had elevated LDH, thrombocytopenia, decreased haptoglobin with schistocytes on peripheral smear. ADAMTS 13 was negative. Had her femoral HD catheter removed on 01/10/2025. Did not have any renal biopsy. She had steroids and was started on Eculizumab 900 mg weekly for 4 weeks ( 01/06/25, 01/13/25, 01/20/25 and 4th dose was given this week). Received meningococcal vaccination and was started on Azithromycin 500 mg daily for 2 weeks ( penicillin allergy) while on eculizumab. She continues to have good urine output. Her GFR is improving. She has no edema. Her appetite is good and denies any SOB, PND, orthopnea or any uremic symptoms. She has H/O hypertensive emergency but the BP is at goal now. She has been getting Eculizumab in [facility] [place] every 2 weeks but currently has insurance coverage issues and is being transitioned to Ravulizumab, first dose being 2700 mg . After 2 weeks she will get 3300 mg and following which maintenance will be every 8 weeks @ 3300 mg. ( She had a piter cath revison by IR). She may need Procrit. Follow up labs ordered & F/U appointment given Orders: Orders Complete Blood Count Auto Diff 04/25/25. - Other hemolytic-uremic syndrome, N17.9 - Acute kidney failure, unspecified Lactate Dehydrogenase 04/25/25. - Other hemolytic-uremic syndrome, N17.9 - Acute kidney failure, unspecified Complement C4 04/25/25. - Other hemolytic-uremic syndrome, N17.9 - Acute kidney failure, unspecified Electrolytes 04/25/25. - Other hemolytic-uremic syndrome, N17.9 - Acute kidney failure, unspecified Blood Urea Nitrogen 04/25/25. - Other hemolytic-uremic syndrome, N17.9 - Acute kidney failure, unspecified Creatinine 04/25/25. - Other hemolytic-uremic syndrome, N17.9 - Acute kidney failure, unspecified Complement C3 04/25/25. - Other hemolytic-uremic syndrome, N17.9 - Acute kidney failure, unspecified Coding Level of Care Code Est Pt Level 4 (05286) Diagnoses PEYTON (acute kidney injury) N17.9 Atypical hemolytic uremic syndrome
== END 2025-04-25 16:35 | disposition home or self-care (01) ==
LOC: HO.HKA 15:57
PROVIDERS: PCP Internal Medicine; Visit Provider Internal Medicine Nephrology
DX: N17.9 Acute kidney failure, unspecified (principal); D59.39 Other hemolytic-uremic syndrome
CPT/HCPCS: 99214

== ENCOUNTER → 2025-04-25 15:56 | Outpatient (BNVA) | payer OTHER, SELFPAY | PROVIDERS: PCP Internal Medicine; Visit Provider Internal Medicine Nephrology | DX: D59.39 Other hemolytic-uremic syndrome (principal); N17.9 Acute kidney failure, unspecified | CPT/HCPCS: 99212 ==

== ENCOUNTER 2025-05-28 15:47 | Outpatient (AMB) | payer OTHER, SELFPAY ==
--- NOTE | 2025-05-28 15:54 | HO.NEPHOV ---
Vital Signs 05/28/25 15:58 Height 5 ft 3 in Weight 206 lb 6 oz BMI 36.6 BP 132/80 Blood Pressure Location Rt brachial Position Sitting Pulse 81 Pulse Source Pulse Oximeter Pulse Oximetry (%) 100 Oxygen Delivery Method Room Air Intake Visit Reasons: 1mon f/u-Conf w/maddison Cycle Consultant Required: No Accompanied by: Other Relationship Allergies amoxicillin (AMOXICILLIN) Allergy (Severe, Verified 05/28/25 16:02) ANAPHYLAXIS, swelling Penicillins (PENICILLINS) Allergy (Severe, Verified 05/28/25 16:02) ANAPHYLAXIS polyethylene glycol 3350 (From MIRALAX) Allergy (Severe, Verified 05/28/25 16:02) ANAPHYLAXIS sulindac (SULINDAC) Allergy (Severe, Verified 05/28/25 16:02) SWELLING senna Allergy (Intermediate, Verified 05/28/25 16:02) Unknown seafood Allergy (Verified 05/28/25 16:02) Hives HPI Comments Details: 35-year-old female with pertinent history of mood disorder, gastroesophageal reflux disease, mild intellectual disability, hypertension initially presented to the emergency department for evaluation of nausea and vomiting. She had been having nausea and multiple episodes of nonbloody emesis throughout the day prior to presentation. She also has been having abdominal discomfort at that time which is generalized, constant, not related to food intake, nonradiating, nonprogressive and without any relieving factors. Patient had not been taking her p.o. antihypertensives for the last few days. She had reduced p.o. intake as she is unable to hold anything down due to nausea and vomiting. She denied fever, chills or diarrhea. She has no palpitation, shortness of breath, changes in urinary habits. She has no history of diabetes mellitus, palpitation, orthostasis. Her renal function had been getting worse and now has been having worsening proteinuria. She denied using drugs other than Marijuana. She does not takes nonsteroidal anti-inflammatories regularly. 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 Her mental status was at baseline. She was transferred to [facility] for PLEX/Eculizimab. 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 She had acute hypoxic respiratory failure in hospital with worsening renal function. She responded well to diuresis. She had elevated LDH, thrombocytopenia, decreased haptoglobin with schistocytes on peripheral smear. ADAMTS 13 was negative. Had her femoral HD catheter removed on 01/10/2025. Did not have any renal biopsy. She had steroids and was started on Eculizumab 900 mg weekly for 4 weeks ( 01/06/25, 01/13/25, 01/20/25 and 4th dose given this week). Received meningococcal vaccination and was started on Azithromycin 500 mg daily for 2 weeks ( penicillin allergy) while on eculizumab. She continues to have good urine output. Her GFR has improved. She has no edema or any other symptoms other than nausea at times. Her appetite is good and denies any SOB, PND, orthopnea or any uremic symptoms. She had hypertensive emergency during hospital stay which improved with medications. She has been having difficulties in blood draws and medication administration due to poor veins and had a port a cath inserted but is awaiting a revision due to issues with it .Her renal functions has been improving & remained on eculzimab but due to insurance issues from it and was switched to Ravulizumab [facility] Medical History NSTEMI (non-ST elevated myocardial infarction) Possible exposure to STD Breast mass, right Morbid obesity with BMI of 40.0-44.9, adult Hypertension Annual visit for general adult medical examination with abnormal findings Heart murmur, systolic Breast pain Right Achilles tendinitis Erythema intertrigo External hemorrhoids Bleeding hemorrhoids Vitamin D deficiency Heel callus Mild intermittent asthma in adult without complication Ex-cigarette smoker Motion sickness Mild intellectual disability Porcelain gallbladder Migraine Depression with anxiety Dysmenorrhea 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 Brother No problems noted. Brother No problems noted. 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 Cognitive needs: No Hearing needs: No Vision needs: Yes Female Reproductive History Menstrual Age of Menarche: 13 Review of Systems Const All systems reviewed & are unremarkable except as noted in HPI and below Physical Exam Vital Signs: Last Vital Signs Pulse 81 05/28/25 15:58 BP 132/80 05/28/25 15:58 Pulse Ox 100 05/28/25 15:58 Oxygen Delivery Method Room Air 05/28/25 15:58 BMI result Body Mass Index 36.6 Const General: comfortable and no acute distress Orientation/consciousness: patient oriented x3 HEENT Head: Yes normocephalic Mouth: Normal oral and palatal mucosa present Eyes EOM: EOMs intact bilaterally Neck Neck: Yes supple Resp Auscultation: clear to auscultation bilaterally Cardio Jugular venous distension: no JVD Rate: regular rate GI Palpation (GI): Soft to palpation Auscultation: normal bowel sounds General: Yes no CVA tenderness Back/Spine/Pelvis Back: no CVA tenderness Skin General skin exam: no rashes or lesions noted Neuro General: patient oriented x3 and moves all extremities Extrem General: Yes no pedal edema Results Reviewed Nephrology Results: Hgb, (12.0-16.0) 10.0 g/dl L 05/14/25 WBC, (4.8-10.8) 5.2 X10*3/uL 05/14/25 Plt Count, (160-400) 172 X10*3/uL 05/14/25 Sodium, (135-145) 140 mmol/L 05/14/25 Potassium, (3.3-5.1) 3.9 mmol/L 05/14/25 Chloride, (96-108) 109 mmol/L H 05/14/25 Carbon Dioxide, (22-29) 24 mmol/L 05/14/25 BUN, (9-16) 24 mg/dL H 05/14/25 Creatinine, (0.5-1.4) 2.56 mg/dL H 05/14/25 Calcium, (8.4-10.2) 8.8 mg/dL 05/14/25 Phosphorus, (2.7-4.5) 2.6 mg/dL L 04/03/25 Urine Creatinine 59.56 mg/dL 04/03/25 Protein/Creatinin Ratio, (<0.2) 1.34 H 04/03/25 Renal US 12/27/24 Assessment & Plan Assessment & Plan (1) Hypertension: Code(s): I10 - Essential (primary) hypertension Category: Medical Qualifiers: Hypertension type: primary hypertension Qualified Code(s): I10 - Essential (primary) hypertension (2) Proteinuria: Code(s): R80.9 - Proteinuria, unspecified Category: Medical Qualifiers: Proteinuria type: other Qualified Code(s): R80.8 - Other proteinuria (3) PEYTON (acute kidney injury): Code(s): N17.9 - Acute kidney failure, unspecified Category: Medical Plan She had H/O worsening of renal function with drop in her platelet count 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 She was transferred to [facility] for PLEX/Eculizimab. 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 She had acute hypoxic respiratory failure in hospital with worsening renal function. She responded well to diuresis. She had elevated LDH, thrombocytopenia, decreased haptoglobin with schistocytes on peripheral smear. ADAMTS 13 was negative. Had her femoral HD catheter removed on 01/10/2025. Did not have any renal biopsy. She had steroids and was started on Eculizumab 900 mg weekly for 4 weeks ( 01/06/25, 01/13/25, 01/20/25 and 4th dose was given this week). Received meningococcal vaccination and was started on Azithromycin 500 mg daily for 2 weeks ( penicillin allergy) while on eculizumab. She continues to have good urine output. Her GFR is improving. She has no edema. Her appetite is good and denies any SOB, PND, orthopnea or any uremic symptoms. She has H/O hypertensive emergency but the BP is at goal now. She has been getting Eculizumab in [facility] every 2 weeks but had insurance coverage issues and was transitioned to Ravulizumab, first dose being 2700 mg . After 2 weeks she was given 3300 mg and following which maintenance will be every 8 weeks @ 3300 mg. She may need Procrit. Follow up labs ordered & F/U appointment given Orders: Orders Complete Blood Count Auto Diff 1 Month I10 - Essential (primary) hypertension, N17.9 - Acute kidney failure, unspecified, R80.8 - Other proteinuria Creatinine 1 Month I10 - Essential (primary) hypertension, N17.9 - Acute kidney failure, unspecified, R80.8 - Other proteinuria Phosphorus 1 Month I10 - Essential (primary) hypertension, N17.9 - Acute kidney failure, unspecified, R80.8 - Other proteinuria Complement C3 1 Month I10 - Essential (primary) hypertension, N17.9 - Acute kidney failure, unspecified, R80.8 - Other proteinuria Blood Urea Nitrogen 1 Month I10 - Essential (primary) hypertension, N17.9 - Acute kidney failure, unspecified, R80.8 - Other proteinuria Electrolytes 1 Month I10 - Essential (primary) hypertension, N17.9 - Acute kidney failure, unspecified, R80.8 - Other proteinuria Calcium 1 Month I10 - Essential (primary) hypertension, N17.9 - Acute kidney failure, unspecified, R80.8 - Other proteinuria Complement C4 1 Month I10 - Essential (primary) hypertension, N17.9 - Acute kidney failure, unspecified, R80.8 - Other proteinuria Lactate Dehydrogenase 1 Month I10 - Essential (primary) hypertension, N17.9 - Acute kidney failure, unspecified, R80.8 - Other proteinuria Coding Level of Care Code Est Pt Level 4 (43603) Diagnoses Primary hypertension I10 Hypertension type: primary hypertension Other proteinuria R80.8 Proteinuria type: other PEYTON (acute kidney injury) N17.9
[2025-05-28 15:58] VITALS: BP 132/80; PULSE 81; O2SAT 100; BMI 36.6
--- OUTSIDE RECORDS SUMMARY | 2025-05-28 16:58 | XMS_ITS | Clinical Summary ---
Author Organization [employer] it Address [address] [place] [address] Care Team Providers Care Virtualization Architect Name Role Phone Fernandez Tyler MD Primary Care Provider [phone] Surgical History Surgery Date Site/Laterality Comments BREAST [...] age to complete this topic Care Teams Virtualization Architect Relationship Specialty Start Date End Date Fernandez Tyler MD [address] [place] [address] Drive [address] [place] [address] PCP - General Internal Medicine 03/19/14
== END 2025-05-28 16:18 | disposition home or self-care (01) ==
LOC: HO.HKA 15:48
PROVIDERS: PCP Internal Medicine; Visit Provider Internal Medicine Nephrology
DX: I10 Essential (primary) hypertension (principal); R80.8 Other proteinuria; N17.9 Acute kidney failure, unspecified
CPT/HCPCS: 99214

== ENCOUNTER → 2025-05-28 15:47 | Outpatient (BNVA) | payer OTHER, SELFPAY | PROVIDERS: PCP Internal Medicine; Visit Provider Internal Medicine Nephrology | DX: I10 Essential (primary) hypertension (principal); R80.8 Other proteinuria; N17.9 Acute kidney failure, unspecified | CPT/HCPCS: 99212 ==

== ENCOUNTER 2025-05-29 08:46 | Outpatient (REF) | payer OTHER, SELFPAY ==
[2025-05-29 16:25] LABS: Bacterial Vaginosis PCR POSITIVE (Negative); Candida Group PCR NOT DETECTED (Not Detect); Candida glab krusei PCR NOT DETECTED (Not Detect); Trichomonas vaginalis PCR NOT DETECTED (Not Detect)
[2025-05-29 16:55] LABS: CT PCR NOT DETECTED (Not Detect.); NG PCR NOT DETECTED (Not Detect.)
== END 2025-05-29 08:47 | disposition home or self-care (01) ==
LOC: HO.LNP 08:46
PROVIDERS: PCP Internal Medicine; Visit Provider Advanced Practice Midwife
DX: Z20.2 Contact with and (suspected) exposure to infections with a predominantly sexual mode of transmission (principal); I12.9 Hypertensive chronic kidney disease with stage 1 through stage 4 chronic kidney disease, or unspecified chronic kidney disease; N18.4 Chronic kidney disease, stage 4 (severe); D63.1 Anemia in chronic kidney disease; R10.2 Pelvic and perineal pain; D59.39 Other hemolytic-uremic syndrome; Z32.02 Encounter for pregnancy test, result negative
CPT/HCPCS: 81003; 81025; 81515; 87491; 87591; 99212

== ENCOUNTER 2025-05-29 08:46 | Outpatient (AMB) | payer OTHER, SELFPAY ==
[2025-05-29 08:51] VITALS: BMI 36.5
--- NOTE | 2025-05-29 08:51 | MHC.OFFVIS ---
Vital Signs 05/29/25 08:51 Height 5 ft 3 in Weight 206 lb BMI 36.5 Intake Visit Reasons: STD Testing/45 min per BM Intake Note: Ria Home Therapy Teacher: Home Therapy Teacher Present (Bri) Accompanied by: Other Relationship Allergies amoxicillin (AMOXICILLIN) Allergy (Severe, Verified 05/29/25 08:53) ANAPHYLAXIS, swelling Penicillins (PENICILLINS) Allergy (Severe, Verified 05/29/25 08:53) ANAPHYLAXIS polyethylene glycol 3350 (From MIRALAX) Allergy (Severe, Verified 05/29/25 08:53) ANAPHYLAXIS sulindac (SULINDAC) Allergy (Severe, Verified 05/29/25 08:53) SWELLING senna Allergy (Intermediate, Verified 05/29/25 08:53) Unknown seafood Allergy (Verified 05/29/25 08:53) Hives HPI Comments Details: Patient is here today with concerns for STD testing, accompanied by her assistedhome care attendant, Ria. She reports unprotected intimacy, no pelvic pain, dysuria, discharge or odors. She was referred to [facility] in November for high-risk control management due to her renal impairment and history of hypertension and complex medical history. LMP in May unknown date. UPT is negative today. [facility] Medical History NSTEMI (non-ST elevated myocardial infarction) Possible exposure to STD Breast mass, right Morbid obesity with BMI of 40.0-44.9, adult Hypertension Annual visit for general adult medical examination with abnormal findings Heart murmur, systolic Breast pain Right Achilles tendinitis Erythema intertrigo External hemorrhoids Bleeding hemorrhoids Vitamin D deficiency Heel callus Mild intermittent asthma in adult without complication Ex-cigarette smoker Motion sickness Mild intellectual disability Porcelain gallbladder Migraine Depression with anxiety Dysmenorrhea 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 Brother No problems noted. Brother No problems noted. 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 Cognitive needs: No Hearing needs: No Vision needs: Yes Female Reproductive History Menstrual Age of Menarche: 13 Review of Systems Const All systems reviewed & are unremarkable except as noted in HPI and below Physical Exam Vital Signs: BMI result Body Mass Index 36.5 Const General: cooperative, healthy appearing and no acute distress Orientation/consciousness: patient oriented x3 GI Inspection: Yes normal to inspection Palpation (GI): Soft to palpation and Other GI palpation findings present (Nontender) Rectal Exam - Female: visual inspection normal General: Yes bladder normal to palpation External Female Exam: normal appearance of the urethra Speculum Exam - Vagina: normal appearance of the vagina, normal palpation and normal vaginal discharge Speculum Exam - Cervix: normal appearance of the cervix and normal palpation Bimanual exam- vagina & uterus: normal bimanual exam, normal palpation, uterine size normal, bladder normal to palpation, normal palpation, uterine shape normal and non-tender Bimanual Exam- Adnexa, other: normal adnexae Neuro General: patient oriented x3 Results AMB Test Urine AMB Test Urine Negative Last Edit by STEPHIE Kiran on 05/29/25 09:10 AMB Urinalysis, Automated UA Leukoctes 0 Elpidio/uL Last Edit by STEPHIE Kiran on 05/29/25 09:32 UA Nitrite Negative Last Edit by STEPHIE Kiran on 05/29/25 09:32 UA Urobilinogen 0 mg/dL Last Edit by STEPHIE Kiran on 05/29/25 09:32 UA Protein 3 mg/dL Last Edit by STEPHIE Kiran on 05/29/25 09:32 UA pH 6.0 Last Edit by STEPHEI Kiran on 05/29/25 09:32 UA Blood 0 Estevan/uL Last Edit by HoneySTEPHIE Peñaloza on 05/29/25 09:32 UA Specific [place] 1.020 Last Edit by STEPHIE Kiran on 05/29/25 09:32 UA Ketone Negative Last Edit by HoneySTEPHIE Peñaloza on 05/29/25 09:32 UA Bilirubin 0 mg/dL Last Edit by STEPHIE Kiran on 05/29/25 09:32 UA Glucose 0 mg/dL Last Edit by STEPHIE Kiran on 05/29/25 09:32 Results Reviewed Results Reviewed: Laboratory Last Values Tst Clinic Negative 05/29/25 09:09 Assessment & Plan Assessment & Plan (1) Anemia due to chronic kidney disease: Code(s): N18.9 - Chronic kidney disease, unspecified; D63.1 - Anemia in chronic kidney disease Category: Medical Qualifiers: Chronic kidney disease stage: stage 4 (GFR 15-29) Qualified Code(s): N18.4 - Chronic kidney disease, stage 4 (severe); D63.1 - Anemia in chronic kidney disease (2) CKD (chronic kidney disease) stage 4, GFR 15-29 ml/min: Code(s): N18.4 - Chronic kidney disease, stage 4 (severe) Category: Medical (3) Possible exposure to STD: Code(s): Z20.2 - Contact with and (suspected) exposure to infections with a predominantly sexual mode of transmission Category: Medical Plan Counseled regarding the importance of using condoms consistently until she is on a control this acceptable for her use. Referral recent an office to call regarding consult at [facility]. BV panel GC chlamydia and bled work ordered today await results for final plan of care. The patient expressed understanding and agreement with the plan of care. All of her questions and concerns were addressed to the best of my ability. This note is constructed using voice recognition software. While every effort has been made to ensure accuracy, armature inspector errors may have been included. Orders: Orders AMB HCG Urine Test Today Z32.02 - Encounter for test, result negative HIV Ab/Ag Today Z20.2 - Contact with and (suspected) exposure to infections with a predominantly sexual mode of transmission Hepatitis C Antibody Reflex Today Z20.2 - Contact with and (suspected) exposure to infections with a predominantly sexual mode of transmission CT NG by PCR Vag/Cerv Today Z20.2 - Contact with and (suspected) exposure to infections with a predominantly sexual mode of transmission Hepatitis B Core Antibody Today Z20.2 - Contact with and (suspected) exposure to infections with a predominantly sexual mode of transmission Syphilis Screen Today Z20.2 - Contact with and (suspected) exposure to infections with a predominantly sexual mode of transmission Bacterial Vaginosis Panel Today Z20.2 - Contact with and (suspected) exposure to infections with a predominantly sexual mode of transmission AMB Urinalysis Automated Today R10.2 - Pelvic and perineal pain Coding Level of Care Code Est Pt Level 3 (08061) Diagnoses Anemia due to stage 4 chronic kidney disease N18.4; D63.1 Chronic kidney disease stage: stage 4 (GFR 15-29) CKD (chronic kidney disease) stage 4, GFR 15-29 ml/min N18.4 Possible exposure to STD Z20.2
--- OUTSIDE RECORDS SUMMARY | 2025-05-29 09:29 | XMS_ITS | Clinical Summary ---
Author Organization [facility] Address [address] [place] [address] Care Team Providers Care Renal Dialysis Rn Name Role Phone Fernandez Tyler MD Primary Care Provider [phone] Surgical History Surgery Date Site/Laterality Comments BREAST [...] age to complete this topic Care Teams Renal Dialysis Rn Relationship Specialty Start Date End Date Fernandez Tyler MD [address] [place] [address] Drive [address] [place] [address] PCP - General Internal Medicine 03/19/14
== END 2025-05-29 09:32 | disposition home or self-care (01) ==
LOC: HO.HWS 08:46
PROVIDERS: PCP Internal Medicine; Visit Provider Advanced Practice Midwife
DX: N18.4 Chronic kidney disease, stage 4 (severe) (principal); D63.1 Anemia in chronic kidney disease; Z20.2 Contact with and (suspected) exposure to infections with a predominantly sexual mode of transmission; R10.2 Pelvic and perineal pain; Z32.02 Encounter for pregnancy test, result negative
CPT/HCPCS: 99213

== ENCOUNTER 2025-05-29 09:19 | Outpatient (REF) | payer OTHER, SELFPAY ==
[2025-05-29 09:57] LABS: MANUAL DIFF FLAG NO
[2025-05-29 10:44] LABS: Hematocrit 32.0 % (37.0-47.0); Hemoglobin 10.7 g/dl (12.0-16.0); Imm Gran Abs Auto 0.02 X10*3/uL (0.00-0.03); Imm Gran Pct Auto 0.3 % (0.0-0.4); Lymphocytes Absolute Auto 0.8 X10*3/uL (1.2-4.9); Mean Corpuscular HGB Conc 33.4 g/dl (31.0-35.0); Mean Corpuscular Hemoglobin 27.4 pg (27.0-33.0); Mean Corpuscular Volume 81.8 fL (80.0-98.0); NRBC Abs Auto 0.000 X10*3/uL (0.0-0.012); NRBC Pct Auto 0.0 /100WBC (0.0-0.2); Platelet Count 190 X10*3/uL (160-400); Red Blood Count 3.91 X10*6/uL (4.20-5.50); White Blood Count 6.3 X10*3/uL (4.8-10.8)
[2025-05-29 10:50] LABS: Appearance Urine Cloudy; Glucose Urine UA Negative (Negative); PH 5.5 (5.0-9.0); Specific Gravity - Urine 1.020 (1.005-1.025); UMIC TRIGGER UA YES
[2025-05-29 11:07] LABS: Alanine Aminotransferase 6 U/L (0-31); Albumin Level 4.3 g/dL (3.5-5.0); Alkaline Phosphatase 84 U/L (39-117); Anion Gap 8 (12-20); Aspartate Amino Transferase 11 U/L (5-31); Blood Urea Nitrogen 20 mg/dL (9-16); Calcium 8.9 mg/dL (8.4-10.2); Carbon Dioxide 26 mmol/L (22-29); Chloride 107 mmol/L (96-108); Estimated Glomerular Filt Rate 22; Iron 60 mcg/dL (30-160); Percent Iron Saturation 26 % (15-50); Potassium 3.9 mmol/L (3.3-5.1); Sodium 137 mmol/L (135-145); Total Iron Binding Capacity 231 mcg/dL (228-428); Total Protein 6.8 g/dL (6.5-8.0); Unsaturated Iron Binding 171 ug/dL
[2025-05-29 11:23] LABS: HBc Num1 0.09 S/CO (0.00-0.79); HIV Num 1 0.06 S/CO (0.00-0.99); ~HepC Num1 0.10 S/CO (0.00-0.79); ~Hepatitis C Antibody Nonreactive (Nonreactive)
[2025-05-29 11:24] LABS: Syphilis Screen Nonreactive (Nonreactive)
[2025-05-29 11:28] LABS: Ferritin 69 ng/mL (10-122)
== END 2025-05-29 09:20 | disposition home or self-care (01) ==
LOC: HO.LAB 09:19
PROVIDERS: Internal Medicine Nephrology; PCP Internal Medicine; Visit Provider Advanced Practice Midwife
DX: D59.39 Other hemolytic-uremic syndrome (principal); N18.9 Chronic kidney disease, unspecified; D63.1 Anemia in chronic kidney disease; Z20.2 Contact with and (suspected) exposure to infections with a predominantly sexual mode of transmission; Z11.3 Encounter for screening for infections with a predominantly sexual mode of transmission; Z11.8 Encounter for screening for other infectious and parasitic diseases; Z11.4 Encounter for screening for human immunodeficiency virus [HIV]; Z01.84 Encounter for antibody response examination
CPT/HCPCS: 36415; 80053; 81001; 82728; 83540; 85025; 86704; 86780; 86803; 87389

== ENCOUNTER 2025-07-18 11:43 | Emergency (ER) | payer OTHER, SELFPAY ==
--- NOTE | ~2025-07-18 | CT_ITS ---
EXAMINATION: CT ABDOMEN AND PELVIS WITHOUT CONTRAST CLINICAL INFORMATION: Left flank pain COMPARISON: CT abdomen and pelvis without IV contrast 01/01/2025 TECHNIQUE: Multidetector volumetric imaging was performed from the superior aspect of the liver through the pubic symphysis. Sagittal and coronal reformatted images were obtained on the technologist's workstation. This CT examination was performed using dose optimization techniques as appropriate, variously including the following: *Automated exposure control *Adjustment of mA and/or kV according to patient size (this includes techniques or standardized protocols for targeted exams where dose is matched to indication/reason for exam; i.e. extremities or head) *Use of iterative reconstruction technique FINDINGS: LUNG BASES: The lung bases are clear. The heart size is normal. LIVER, GALLBLADDER, AND BILIARY TREE: The liver is normal in size, shape, and attenuation. No focal hepatic lesion or biliary ductal dilatation is present. The gallbladder has been surgically removed. PANCREAS: Unremarkable. SPLEEN: Unremarkable. ADRENAL GLANDS: Unremarkable. KIDNEYS AND URETERS: The kidneys are normal in size, shape, and attenuation. There are 1 mm two radiopaque calculi in lower pole left kidney. There is no caliectasis or hydronephrosis. No perinephric stranding. BLADDER: The bladder is mildly distended without radiopaque calculi wall thickening. GASTROINTESTINAL TRACT: There is scattered stool and gas seen throughout the colo without distention. ABDOMINAL WALL: No significant hernia is appreciated. LYMPH NODES: Normal. VASCULAR: Unremarkable. PELVIC VISCERA: The uterus is anteverted posterior to uterus is a well-defined round cystic collection measuring 3.7 x 3.0 x 3.0 cm and measuring fluid density 11 Hounsfield units likely ovarian or paraovarian cyst. There is no free fluid in the cul-de-sac. No abnormal pelvic size lymph nodes. OSSEOUS STRUCTURES: No aggressive lytic or sclerotic process seen. CT/CT abdomen pelvis wo IV con IMPRESSION: Nonobstructive small radiopaque calculi lower pole left kidney . Likely paraovarian or ovarian cyst posterior to the body of uterus. Fleischner guidelines were followed. Electronically signed by: Darien Mills MD 07/18/2025 04:54 PM EDT
[2025-07-18 11:54] VITALS: BP 165/90; PULSE 76; RESP 14; TEMP 36.3; O2SAT 98; BMI 34.5
--- NOTE | 2025-07-18 11:59 | ED.GENADULT ---
HPI - General Adult General Chief complaint: Abdominal Pain Stated complaint: Sharp L Lower Back/ ADB Pain Time Seen by Provider: 07/18/25 13:13 Source: patient and EMS Mode of arrival: EMS Limitations: no limitations History of Present Illness ED Provider: LINDA MELGOZA narrative: 35 yo female with PMH Of PEYTON/CKD, hematuria, hemolytic uremic syndrome, HTN, GERD, asthma, migraine, depression with anxiety here with c/o L flank pain starting this AM wraps around to L abdomen. She denies n/v/d, fevers. States she has no issues urinating. She noted it became more painful during day program. She denies a history of this. She has no back trauma or injury MD complaint: L flank pain Onset (ago): day(s) (today) Location: abdomen Radiation: non-radiation Severity: moderate Quality: stabbing Pain Consistency: constant Relieving factors: none Exacerbating factors: none Associated symptoms: nausea/vomiting Treatments prior to arrival: none Related Data Home Medications ?Medication ?Instructions ?Recorded ?Confirmed polyvinyl alcohol 1.4 % eye drops 1 drp ophthalmic (eye) BEDTIME PRN 07/06/21 01/01/25 (Artificial Tears (polyvinyl Dry Eyes alcohol)) melatonin 5 mg tablet 5 mg PO BEDTIME 07/26/21 01/01/25 trazodone 150 mg tablet 300 mg PO BEDTIME Insomnia 11/22/24 01/01/25 dorzolamide-timolol (PF) 2 %-0.5 % 1 drp ophthalmic (eye) BID 12/27/24 01/01/25 eye drops in a dropperette latanoprost 0.005 % eye drops 1 drp ophthalmic-Right BEDTIME 12/27/24 01/01/25 brimonidine 0.2 % eye drops 1 drp ophthalmic-Right BID 01/01/25 01/01/25 Previous Rx's ?Medication ?Instructions ?Recorded oxcarbazepine 600 mg tablet 600 mg PO BID #60 tabs 05/30/22 (Trileptal) albuterol sulfate 2.5 mg/3 mL 2.5 mg (3 mL) inhalation Q6H PRN 12/11/24 (0.083 %) solution for nebulization shortness of breath or wheezing #75 mL albuterol sulfate 90 mcg/actuation 2 puff inhalation Q6H PRN 12/11/24 aerosol inhaler bronchospasm #8.5 grams sumatriptan succinate 50 mg tablet 50 mg PO DAILY PRN Headache #10 12/16/24 tabs hydrocortisone 1 % topical cream 1 appl topical TID PRN skin 01/28/25 irritation/rash 10 days #28.35 grams acetaminophen 500 mg tablet 500 mg PO Q8H PRN pain 30 days #90 01/29/25 (Tylenol Extra Strength) tabs clonidine HCl 0.1 mg tablet 0.1 mg PO BID #60 tabs 01/29/25 ondansetron 4 mg disintegrating 4 mg PO Q8H 30 days #90 tabs 01/29/25 tablet loratadine 10 mg tablet 10 mg PO DAILY allergy symptoms 02/04/25 #30 tabs labetalol 300 mg tablet 300 mg PO TID 90 days #270 tabs 02/14/25 nifedipine 60 mg tablet,extended 60 mg PO BID 90 days #180 tabs 02/14/25 release 24 hr bisacodyl 5 mg tablet,delayed 5 mg PO BEDTIME PRN constipation 02/26/25 release (Dulcolax (bisacodyl)) 30 days #30 tabs multivitamin 1 tab PO DAILY #90 tabs 04/13/25 docusate sodium 100 mg capsule 200 mg (2 x 100 mg) PO BEDTIME PRN 04/23/25 (Colace) constipation #30 caps famotidine 40 mg tablet 40 mg PO DAILY heartburn #90 tabs 07/04/25 Allergies Allergy/AdvReac Type Severity Reaction Status Date / Time amoxicillin (AMOXICILLIN) Allergy Severe ANAPHYLAXIS, Verified 07/18/25 11:56 swelling Penicillins (PENICILLINS) Allergy Severe ANAPHYLAXIS Verified 07/18/25 11:56 polyethylene glycol 3350 Allergy Severe ANAPHYLAXIS Verified 07/18/25 11:56 (From MIRALAX) sulindac (SULINDAC) Allergy Severe SWELLING Verified 07/18/25 11:56 senna Allergy Intermediate Unknown Verified 07/18/25 11:56 seafood Allergy Hives Verified 07/18/25 11:56 Review of Systems Review of Systems: Constitutional : No Fever, No Chills ENT/Mouth : No sore throat Eyes: No Eye Pain, No Swelling, No Redness Cardiovascular : No Chest Pain, No SOB Respiratory : No Cough, No Sputum, No Wheezing Gastrointestinal : positive Nausea, noVomiting, No Diarrhea, positive abdominal pain Genitourinary : no Dysuria, no urinary frequency, no Hematuria, positive Flank Pain Musculoskeletal : No joint pain, No Myalgias Skin : No Skin Lesions, No rash Neuro : No Weakness, No Numbness, No Headache All other systems reviewed and are negative [facility] Past Medical History Attestation statement: The following information was validated with the patient. Source: old records reviewed Medical History NSTEMI (non-ST elevated myocardial infarction) Possible exposure to STD Breast mass, right Morbid obesity with BMI of 40.0-44.9, adult Hypertension Annual visit for general adult medical examination with abnormal findings Heart murmur, systolic Breast pain Right Achilles tendinitis Erythema intertrigo External hemorrhoids Bleeding hemorrhoids Vitamin D deficiency Heel callus Mild intermittent asthma in adult without complication Ex-cigarette smoker Motion sickness Mild intellectual disability Porcelain gallbladder Migraine Depression with anxiety Dysmenorrhea 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 Brother No problems noted. Brother No problems noted. 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 Oriented X3. No acute distress. Eyes: Pupils equal, round and reactive to light. ENT: Pharynx normal. Neck: Normal inspection. Neck supple. CVS: Normal heart rate and rhythm. Pulses normal. Respiratory: No respiratory distress. Breath sounds normal. Abdomen: Soft and ttp in LLQ no rebound or guarding Skin: Skin warm and dry. Normal skin color. Extremities: No lower extremity edema. Neuro: Oriented X 3. No motor deficit. No sensory deficit. Course Course Course Narrative: RME: 35-year-old female presents to ED for left lower back radiating to left lower abdominal pain since yesterday. Patient denies any trauma. Patient states history of kidney failure. Labs can be only access to [place] calf. Reevaluation(s) Reevaluation #1: Patient was signed out to me at 16:[address] Villar, on re-examination she is doing well we are waiting for the CT scan of the abdomen and pelvis Time: 16:37 Reevaluation #2: CT scan abdomen and pelvis no acute abnormality I think this point she can be discharged home Time: 17:04 Medications Administered Discontinued Medications Generic Name Dose Route Start Last Admin Trade Name Freq PRN Reason Stop Dose Admin Oxycodone HCl 5 mg 07/18/25 13:57 07/18/25 14:52 Oxycodone Hcl Immed Release 5 Mg Tablet PO 07/18/25 13:58 5 mg ONCE ONE Administration Medical Decision Making Medical Decision Making MDM Narrative: 35 yo female with PMH Of PEYTON/CKD, hematuria, hemolytic uremic syndrome, HTN, GERD, asthma, migraine, depression with anxiety here with c/o atraumatic L flank pain but no fevers, no vomiting, no diarrhea, no urinary symptoms at this time will obtain labs, UA, CT scan for renal colic, pain control. Differential Diagnosis Differential Diagnoses: The differential diagnosis associated with the presentation includes renal colic, urinary pathology, constipation, colon inflammation, PEYTON on CKD Admission/Observation Consideration of admission/observation: Escalation of care including admission/observation considered signed out to Dr. Pierre pending CT scan Lab Data MDM Lab Attestation statement: I reviewed the patient's lab results. 07/18/25 14:06 07/18/25 14:06 Labs: Lab Results 07/18/25 07/18/25 Range/Units 12:24 14:06 WBC 5.6 (4.8-10.8) X10*3/uL RBC 4.22 (4.20-5.50) X10*6/uL Hgb 11.3 L (12.0-16.0) g/dl Hct 34.0 L (37.0-47.0) % MCV 80.6 (80.0-98.0) fL MCH 26.8 L (27.0-33.0) pg MCHC 33.2 (31.0-35.0) g/dl RDW 13.6 (11.0-16.0) % Plt Count 182 (160-400) X10*3/uL MPV 10.2 (9.4-12.3) fL Immature Gran % (Auto) 0.2 (0.0-0.4) % Neut % (Auto) 72.2 (45-73) % Lymph % (Auto) 20.5 (20-40) % Levy % (Auto) 7.1 (2-11) % Eos % (Auto) 0.0 (0-4) % Baso % (Auto) 0.0 (0-2) % Lymph # (Auto) 1.2 (1.2-4.9) X10*3/uL Levy # (Auto) 0.4 (0.1-1.2) X10*3/uL Eos # (Auto) 0.0 (0.0-0.4) X10*3/uL Baso # (Auto) 0.0 (0.0-0.2) X10*3/uL Abs Immat Gran (auto) 0.01 (0.00-0.03) X10*3/uL Absolute Neuts (auto) 4.1 (2.0-8.3) x10*3/uL Absolute Nucleated RBC 0.000 (0.0-0.012) X10*3/uL Nucleated RBC % (auto) 0.0 (0.0-0.2) /100WBC Sodium 139 (135-145) mmol/L Potassium 4.3 D (3.3-5.1) mmol/L Chloride 108 (96-108) mmol/L Carbon Dioxide 23 (22-29) mmol/L Anion Gap 12 (12-20) BUN 14 (9-16) mg/dL Creatinine 2.22 H (0.5-1.4) mg/dL Estim Creat Clear Calc 38.0 Estimated GFR 25 Random Glucose 80 (60-115) mg/dL Calcium 8.7 (8.4-10.2) mg/dL Total Bilirubin 0.2 (0.0-1.0) mg/dL AST 13 (5-31) U/L ALT 6 (0-31) U/L Alkaline Phosphatase 94 (39-117) U/L Total Protein 6.9 (6.5-8.0) g/dL Albumin 4.4 (3.5-5.0) g/dL Urine Color Yellow Urine Appearance Cloudy Urine pH 6.0 (5.0-9.0) Ur Specific [place] 1.015 (1.005-1.025) Urine Protein 300 (3+) H (Neg-Trace) mg/dL Urine Glucose (UA) Negative (Negative) mg/dL Urine Ketones Negative (Negative) mg/dL Urine Blood Negative (Negative) Urine Nitrite Negative (Negative) Ur Leukocyte Esterase Negative (Negative) Urine RBC 0-2 (0-2) /HPF Urine WBC 6-10 H (0-5) /HPF Ur Squamous Epith Cells >20 (0-2) /HPF Urine Bacteria 2+ (None Seen) Hyaline Casts 0-2 (0-2) /LPF Urine Test NEGATIVE (NEGATIVE) Independent Interpretation I performed an independent interpretation of an: CT Scan Radiology Impression Discussion of test interpretation with radiology: I have reviewed the radiologist's reading. Independent Historian Clinical information obtained from an independent historian. History obtained from or confirmed by: EMS External Record Review External record reviewed: Outpatient record, Prior outpatient labs and Prior outpatient radiology Discharge Plan Discharge Clinical Impression: Acute flank pain Patient Disposition: Home, Self-Care Instructions: Flank Pain (ED) Additional Instructions: labs reassuring Kidney function at baseline Prescriptions: No Action oxcarbazepine [Trileptal] 600 mg tablet 600 mg PO BID Qty: 60 3RF albuterol sulfate 90 mcg/actuation HFA aerosol inhaler 2 puff inhalation Q6H PRN (Reason: bronchospasm) Qty: 8.5 8RF albuterol sulfate 2.5 mg /3 mL (0.083 %) solution for nebulization 2.5 mg inhalation Q6H PRN (Reason: shortness of breath or wheezing) Qty: 75 5RF sumatriptan succinate 50 mg tablet 50 mg PO DAILY PRN (Reason: Headache) Qty: 10 0RF hydrocortisone 1 % cream 1 appl topical TID PRN (Reason: skin irritation/rash) 10 Days Qty: 28.35 0RF loratadine 10 mg tablet 10 mg PO DAILY Qty: 30 5RF multivitamin Tablet 1 tab PO DAILY Qty: 90 1RF docusate sodium [Colace] 100 mg capsule 200 mg PO BEDTIME PRN (Reason: constipation) Qty: 30 5RF famotidine 40 mg tablet 40 mg PO DAILY Qty: 90 0RF Rx Instructions: take 30 mins ac brimonidine 0.2 % drops 1 drp ophthalmic-Right BID polyvinyl alcohol [Artificial Tears (polyvin alc)] 1.4 % drops 1 drp ophthalmic (eye) BEDTIME PRN (Reason: Dry Eyes) melatonin 5 mg tablet 5 mg PO BEDTIME trazodone 150 mg tablet 300 mg PO BEDTIME bisacodyl [Dulcolax (bisacodyl)] 5 mg tablet,delayed release (DR/EC) 5 mg PO BEDTIME PRN (Reason: constipation) 30 Days Qty: 30 6RF clonidine HCl 0.1 mg tablet 0.1 mg PO BID Qty: 60 6RF acetaminophen [Tylenol Extra Strength] 500 mg tablet 500 mg PO Q8H PRN (Reason: pain) 30 Days Qty: 90 6RF ondansetron 4 mg tablet,disintegrating 4 mg PO Q8H 30 Days Qty: 90 4RF latanoprost 0.005 % drops 1 drp ophthalmic-Right BEDTIME Rx Instructions: Right eye dorzolamide-timolol (PF) 2-0.5 % dropperette 1 drp ophthalmic (eye) BID labetalol 300 mg tablet 300 mg PO TID 90 Days Qty: 270 4RF Protocol: Hold for SBP/HR < HOLD for SBP < : 90 HOLD for HR < : 60 nifedipine 60 mg tablet extended release 24hr 60 mg PO BID 90 Days Qty: 180 4RF Protocol: Hold for SBP< HOLD for SBP < : 90 Interventions: ED Discharge Assessment Last Done: 07/18/25 17:30 Discharge Date/Time: 07/18/25 17:31 Print Language: Malay
--- NOTE | 2025-07-18 12:50 | MHC.EDTECH ---
per patient, wants labs done with her port if possible. nurse aware
[2025-07-18 12:52] LABS: Appearance Urine Cloudy; Glucose Urine UA Negative (Negative); PH 6.0 (5.0-9.0); Specific Gravity - Urine 1.015 (1.005-1.025); UMIC TRIGGER UACC YES
[2025-07-18 12:59] LABS: UACC Culture Trigger YES
[2025-07-18 13:53] VITALS: BP 175/104; PULSE 75; RESP 20; TEMP 37.1; O2SAT 98
[2025-07-18 14:00] VITALS: BP 178/105; PULSE 78; RESP 18; O2SAT 99
--- NOTE | 2025-07-18 14:00 | PC.NURSE ---
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
[2025-07-18 14:13] LABS: MANUAL DIFF FLAG NO
[2025-07-18 14:16] LABS: Hematocrit 34.0 % (37.0-47.0); Hemoglobin 11.3 g/dl (12.0-16.0); Imm Gran Abs Auto 0.01 X10*3/uL (0.00-0.03); Imm Gran Pct Auto 0.2 % (0.0-0.4); Lymphocytes Absolute Auto 1.2 X10*3/uL (1.2-4.9); Mean Corpuscular HGB Conc 33.2 g/dl (31.0-35.0); Mean Corpuscular Hemoglobin 26.8 pg (27.0-33.0); Mean Corpuscular Volume 80.6 fL (80.0-98.0); NRBC Abs Auto 0.000 X10*3/uL (0.0-0.012); NRBC Pct Auto 0.0 /100WBC (0.0-0.2); Platelet Count 182 X10*3/uL (160-400); Red Blood Count 4.22 X10*6/uL (4.20-5.50); White Blood Count 5.6 X10*3/uL (4.8-10.8)
[2025-07-18 14:32] LABS: Alanine Aminotransferase 6 U/L (0-31); Albumin Level 4.4 g/dL (3.5-5.0); Alkaline Phosphatase 94 U/L (39-117); Anion Gap 12 (12-20); Aspartate Amino Transferase 13 U/L (5-31); Blood Urea Nitrogen 14 mg/dL (9-16); Calcium 8.7 mg/dL (8.4-10.2); Carbon Dioxide 23 mmol/L (22-29); Chloride 108 mmol/L (96-108); Creatinine Clr Calc Pharmacy 38.0; Estimated Glomerular Filt Rate 25; Potassium 4.3 mmol/L (3.3-5.1); Sodium 139 mmol/L (135-145); Total Protein 6.9 g/dL (6.5-8.0)
[2025-07-18] MEDS: oxyCODONE HCl Immed Release 5 MG TABLET PO (14:52)
[2025-07-18 15:58] LABS: UPreg QC Valid YES
[2025-07-18 16:45] VITALS: BP 142/101; PULSE 80; RESP 18; O2SAT 97
--- NOTE | 2025-07-18 16:52 | MHC.EDTECH ---
the add on test was done earlier and results are neg. Duplicate order
[2025-07-18 17:30] VITALS: BP 142/101; PULSE 80; RESP 18; TEMP -17.7; TEMP 0; O2SAT 97
== END 2025-07-18 17:31 | disposition home or self-care (01) ==
PROVIDERS: Emergency Medicine; Physician Assistant; Emergency Provider Emergency Medicine; PCP Internal Medicine
DX: R10.A2 Flank pain, left side (principal); M54.50 Low back pain, unspecified; R11.2 Nausea with vomiting, unspecified; Z79.899 Other long term (current) drug therapy
CPT/HCPCS: 36415; 74176; 80053; 81001; 81025; 85025; 87086; 99284

== ENCOUNTER → 2025-07-18 14:36 | Outpatient (BNV) | payer OTHER, SELFPAY | PROVIDERS: Emergency Provider Emergency Medicine; PCP Internal Medicine; Visit Provider Radiology Diagnostic Radiology | DX: N20.0 Calculus of kidney (principal) | CPT/HCPCS: 74176 ==

== ENCOUNTER 2025-07-30 15:41 | Outpatient (AMB) | payer OTHER, SELFPAY ==
--- NOTE | 2025-07-30 15:50 | HO.NEPHOV ---
Vital Signs 07/30/25 15:56 Height 5 ft 3 in Weight 199 lb BMI 35.2 BP 140/90 H Blood Pressure Location Lt brachial Position Sitting Pulse 82 Pulse Source Pulse Oximeter Pulse Oximetry (%) 99 Oxygen Delivery Method Room Air Intake Visit Reasons: FU Train Master Required: No Accompanied by: Other Relationship Allergies amoxicillin (AMOXICILLIN) Allergy (Severe, Verified 07/30/25 15:54) ANAPHYLAXIS, swelling Penicillins (PENICILLINS) Allergy (Severe, Verified 07/30/25 15:54) ANAPHYLAXIS polyethylene glycol 3350 (From MIRALAX) Allergy (Severe, Verified 07/30/25 15:54) ANAPHYLAXIS sulindac (SULINDAC) Allergy (Severe, Verified 07/30/25 15:54) SWELLING senna Allergy (Intermediate, Verified 07/30/25 15:54) Unknown seafood Allergy (Verified 07/30/25 15:54) Hives HPI Comments Details: 35-year-old female with pertinent history of mood disorder, gastroesophageal reflux disease, mild intellectual disability, hypertension initially presented to the emergency department for evaluation of nausea and vomiting. She had been having nausea and multiple episodes of nonbloody emesis throughout the day prior to presentation. She also has been having abdominal discomfort at that time which is generalized, constant, not related to food intake, nonradiating, nonprogressive and without any relieving factors. Patient had not been taking her p.o. antihypertensives for the last few days. She had reduced p.o. intake as she is unable to hold anything down due to nausea and vomiting. She denied fever, chills or diarrhea. She has no palpitation, shortness of breath, changes in urinary habits. She has no history of diabetes mellitus, palpitation, orthostasis. Her renal function had been getting worse and now has been having worsening proteinuria. She denied using drugs other than Marijuana. She does not takes nonsteroidal anti-inflammatories regularly. 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 Her mental status was at baseline. She was transferred to [facility] [place] for PLEX/Eculizimab. 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 She had acute hypoxic respiratory failure in hospital with worsening renal function. She responded well to diuresis. She had elevated LDH, thrombocytopenia, decreased haptoglobin with schistocytes on peripheral smear. ADAMTS 13 was negative. Had her femoral HD catheter removed on 01/10/2025. Did not have any renal biopsy. She had steroids and was started on Eculizumab 900 mg weekly for 4 weeks ( 01/06/25, 01/13/25, 01/20/25 and 4th dose given this week). Received meningococcal vaccination and was started on Azithromycin 500 mg daily for 2 weeks ( penicillin allergy) while on eculizumab. She continues to have good urine output. Her GFR has improved. She has no edema or any other symptoms other than nausea at times. Her appetite is good and denies any SOB, PND, orthopnea or any uremic symptoms. She had hypertensive emergency during hospital stay which improved with medications. She has been having difficulties in blood draws and medication administration due to poor veins and had a port a cath inserted but is awaiting a revision due to issues with it .Her renal functions has been improving & remained on eculzimab but due to insurance issues from it and was switched to Ravulizumab. She recently had left flank pain and was seen in ER [facility] Medical History NSTEMI (non-ST elevated myocardial infarction) Possible exposure to STD Breast mass, right Morbid obesity with BMI of 40.0-44.9, adult Hypertension Annual visit for general adult medical examination with abnormal findings Heart murmur, systolic Breast pain Right Achilles tendinitis Erythema intertrigo External hemorrhoids Bleeding hemorrhoids Vitamin D deficiency Heel callus Mild intermittent asthma in adult without complication Ex-cigarette smoker Motion sickness Mild intellectual disability Porcelain gallbladder Migraine Depression with anxiety Dysmenorrhea 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 Brother No problems noted. Brother No problems noted. 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 Cognitive needs: No Hearing needs: No Vision needs: Yes Female Reproductive History Menstrual Age of Menarche: 13 Review of Systems Const All systems reviewed & are unremarkable except as noted in HPI and below Physical Exam Vital Signs: Last Vital Signs Pulse 82 07/30/25 15:56 BP 170/110 H 07/30/25 15:56 Pulse Ox 99 07/30/25 15:56 Oxygen Delivery Method Room Air 07/30/25 15:56 BMI result Body Mass Index 35.2 Const General: comfortable and no acute distress Orientation/consciousness: patient oriented x3 HEENT Head: Yes normocephalic Mouth: Normal oral and palatal mucosa present Eyes EOM: EOMs intact bilaterally Neck Neck: Yes supple Resp Auscultation: clear to auscultation bilaterally Cardio Jugular venous distension: no JVD Rate: regular rate GI Palpation (GI): Soft to palpation Auscultation: normal bowel sounds General: Yes no CVA tenderness Back/Spine/Pelvis Back: no CVA tenderness Skin General skin exam: no rashes or lesions noted Neuro General: patient oriented x3 and moves all extremities Extrem General: Yes no pedal edema Results Reviewed Nephrology Results: Hgb, (12.0-16.0) 11.3 g/dl L 07/18/25 WBC, (4.8-10.8) 5.6 X10*3/uL 07/18/25 Plt Count, (160-400) 182 X10*3/uL 07/18/25 Sodium, (135-145) 139 mmol/L 07/18/25 Potassium, (3.3-5.1) 4.3 mmol/L Δ 07/18/25 Chloride, (96-108) 108 mmol/L 07/18/25 Carbon Dioxide, (22-29) 23 mmol/L 07/18/25 BUN, (9-16) 14 mg/dL 07/18/25 Creatinine, (0.5-1.4) 2.22 mg/dL H 07/18/25 Calcium, (8.4-10.2) 8.7 mg/dL 07/18/25 Phosphorus, (2.7-4.5) 2.9 mg/dL 07/09/25 Urine Protein, (Neg-Trace) 300 (3+) mg/dL H 07/18/25 Urine Creatinine 59.56 mg/dL 04/03/25 Protein/Creatinin Ratio, (<0.2) 1.34 H 04/03/25 Renal US 12/27/24 Assessment & Plan Assessment & Plan (1) Hypertension: Code(s): I10 - Essential (primary) hypertension Category: Medical Qualifiers: Hypertension type: primary hypertension Qualified Code(s): I10 - Essential (primary) hypertension (2) Proteinuria: Code(s): R80.9 - Proteinuria, unspecified Category: Medical Qualifiers: Proteinuria type: other Qualified Code(s): R80.8 - Other proteinuria (3) Atypical hemolytic uremic syndrome: Code(s): D59.39 - Other hemolytic-uremic syndrome Category: Medical (4) Anemia due to chronic kidney disease: Code(s): N18.9 - Chronic kidney disease, unspecified; D63.1 - Anemia in chronic kidney disease Category: Medical Qualifiers: Chronic kidney disease stage: stage 4 (GFR 15-29) Qualified Code(s): N18.4 - Chronic kidney disease, stage 4 (severe); D63.1 - Anemia in chronic kidney disease (5) PEYTON (acute kidney injury): Code(s): N17.9 - Acute kidney failure, unspecified Category: Medical Plan She had H/O worsening of renal function with drop in her platelet count 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 She was transferred to [facility] for PLEX/Eculizimab. 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 She had acute hypoxic respiratory failure in hospital with worsening renal function. She responded well to diuresis. She had elevated LDH, thrombocytopenia, decreased haptoglobin with schistocytes on peripheral smear. ADAMTS 13 was negative. Had her femoral HD catheter removed on 01/10/2025. Did not have any renal biopsy. She had steroids and was started on Eculizumab 900 mg weekly for 4 weeks ( 01/06/25, 01/13/25, 01/20/25 and 4th dose was given this week). Received meningococcal vaccination and was started on Azithromycin 500 mg daily for 2 weeks ( penicillin allergy) while on eculizumab. She continues to have good urine output. Her GFR is improving. She has no edema. Her appetite is good and denies any SOB, PND, orthopnea or any uremic symptoms. She has H/O hypertensive emergency but the BP is at goal now. She [place] [facility] [place] but had insurance coverage issues and was transitioned to Ravulizumab, first dose being 2700 mg . After 2 weeks she was given 3300 mg and following which maintenance will be every 8 weeks @ 3300 mg. ( Next infusion Sep )Follow up labs ordered & F/U appointment given Orders: Orders Creatinine 4 Weeks D59.39 - Other hemolytic-uremic syndrome Calcium 4 Weeks D59.39 - Other hemolytic-uremic syndrome Lactate Dehydrogenase 4 Weeks D59.39 - Other hemolytic-uremic syndrome Protein Creatinine Ratio, Ur 4 Weeks D59.39 - Other hemolytic-uremic syndrome Complement C3 4 Weeks D59.39 - Other hemolytic-uremic syndrome Complete Blood Count Auto Diff 4 Weeks D59.39 - Other hemolytic-uremic syndrome Blood Urea Nitrogen 4 Weeks D59.39 - Other hemolytic-uremic syndrome Electrolytes 4 Weeks D59.39 - Other hemolytic-uremic syndrome Complement C4 4 Weeks D59.39 - Other hemolytic-uremic syndrome Coding Level of Care Code Est Pt Level 4 (57478) Diagnoses Primary hypertension I10 Hypertension type: primary hypertension Other proteinuria R80.8 Proteinuria type: other Atypical hemolytic uremic syndrome D59.39 Anemia due to stage 4 chronic kidney disease N18.4; D63.1 Chronic kidney disease stage: stage 4 (GFR 15-29) PEYTON (acute kidney injury) N17.9
[2025-07-30 15:56] VITALS: BP 140/90; PULSE 82; O2SAT 99; BMI 35.2
== END 2025-07-30 16:23 | disposition home or self-care (01) ==
LOC: HO.HKA 15:42
PROVIDERS: PCP Internal Medicine; Visit Provider Internal Medicine Nephrology
DX: I12.9 Hypertensive chronic kidney disease with stage 1 through stage 4 chronic kidney disease, or unspecified chronic kidney disease (principal); R80.8 Other proteinuria; D59.39 Other hemolytic-uremic syndrome; N18.4 Chronic kidney disease, stage 4 (severe); D63.1 Anemia in chronic kidney disease; N17.9 Acute kidney failure, unspecified
CPT/HCPCS: 99214

== ENCOUNTER → 2025-07-30 15:41 | Outpatient (BNVA) | payer OTHER, SELFPAY | PROVIDERS: PCP Internal Medicine; Visit Provider Internal Medicine Nephrology | DX: I10 Essential (primary) hypertension (principal); R11.2 Nausea with vomiting, unspecified; R80.9 Proteinuria, unspecified; D59.39 Other hemolytic-uremic syndrome; N18.4 Chronic kidney disease, stage 4 (severe); D63.1 Anemia in chronic kidney disease; N17.9 Acute kidney failure, unspecified | CPT/HCPCS: 99212 ==

== ENCOUNTER 2025-08-11 08:13 | Outpatient (AMB) | payer OTHER, SELFPAY ==
--- NOTE | 2025-08-11 08:34 | MHC.OFFVIS ---
Intake Visit Reasons: 6 month Accompanied by: Other Relationship Allergies amoxicillin (AMOXICILLIN) Allergy (Severe, Verified 08/11/25 08:44) ANAPHYLAXIS, swelling Penicillins (PENICILLINS) Allergy (Severe, Verified 08/11/25 08:44) ANAPHYLAXIS polyethylene glycol 3350 (From MIRALAX) Allergy (Severe, Verified 08/11/25 08:44) ANAPHYLAXIS sulindac (SULINDAC) Allergy (Severe, Verified 08/11/25 08:44) SWELLING senna Allergy (Intermediate, Verified 08/11/25 08:44) Unknown seafood Allergy (Verified 08/11/25 08:44) Hives Medication List - Last Reconciled 08/11/25 by Kelly Blackwood CNP acetaminophen (Tylenol Extra Strength) 500 mg PO Q8H PRN 30 days albuterol sulfate 90 mcg/actuation 2 puffs inhalation Q6H PRN albuterol sulfate 2.5 mg (3 mL) inhalation Q6H PRN bisacodyl (Dulcolax (bisacodyl)) 5 mg PO BEDTIME PRN 30 days brimonidine 0.2% 1 drp ophthalmic-Right BID clonidine HCl 0.1 mg PO BID docusate sodium (Colace) 200 mg (2 x 100 mg) PO BEDTIME PRN dorzolamide-timolol (PF) 2-0.5 % 1 drp ophthalmic (eye) BID famotidine 40 mg PO DAILY hydrocortisone 1% 1 appl topical TID PRN 10 days labetalol 300 mg See Protocol PO TID 90 days latanoprost 0.005% 1 drp ophthalmic-Right BEDTIME loratadine 10 mg PO DAILY melatonin 5 mg PO BEDTIME multivitamin 1 tab PO DAILY nifedipine ER 60 mg See Protocol PO BID 90 days ondansetron 4 mg PO Q8H 30 days oxcarbazepine (Trileptal) 600 mg PO BID polyvinyl alcohol 1.4% (Artificial Tears (polyvinyl alcohol)) 1 drp ophthalmic (eye) BEDTIME PRN sumatriptan succinate 50 mg PO DAILY PRN trazodone 300 mg PO BEDTIME HPI Comments Details: 35-year-old woman with obesity, asthma, bipolar disorder, and migraine. She was hospitalized for PEYTON in 12/2024 and verapamil was discontinued. She was doing okay. No significant migraines and she had not had to use sumatriptan in few months. She occasionally had some smaller headaches that were relieved with as needed Tylenol. Sleep was so-so. [facility] Medical History NSTEMI (non-ST elevated myocardial infarction) Possible exposure to STD Breast mass, right Morbid obesity with BMI of 40.0-44.9, adult Hypertension Annual visit for general adult medical examination with abnormal findings Heart murmur, systolic Breast pain Right Achilles tendinitis Erythema intertrigo External hemorrhoids Bleeding hemorrhoids Vitamin D deficiency Heel callus Mild intermittent asthma in adult without complication Ex-cigarette smoker Motion sickness Mild intellectual disability Porcelain gallbladder Migraine Depression with anxiety Dysmenorrhea 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 Brother No problems noted. Brother No problems noted. 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 Cognitive needs: No Hearing needs: No Vision needs: Yes Female Reproductive History Menstrual Age of Menarche: 13 Review of Systems Const Denies chills, Denies daytime sleepiness, Denies difficulty sleeping, Denies fatigue, Denies fever(s), Denies frequent falls, Reports headache(s), Denies increased appetite, Denies poor appetite, Denies snoring, Denies weakness, Denies weight gain and Denies weight loss Eyes Denies loss of vision ENT Denies vertigo, Denies dizziness and Reports headache(s) Card Denies chest pain at rest, Denies chest pain with activity, Denies syncope, Denies leg edema and Denies palpitations Resp Denies snoring GI Denies constipation, Denies heartburn, Denies diarrhea and Denies nausea Denies urinary frequency, Denies urinary incontinence and Denies urinary urgency Musc Denies abnormal gait, Denies numbness and Denies tingling Skin/Breast Denies dry skin and Denies rash Neuro Denies abnormal gait, Denies vertigo, Denies dizziness, Denies syncope, Denies frequent falls, Reports headache(s), Denies lack of coordination, Denies loss of vision, Denies memory loss, Denies numbness, Denies restless legs, Denies seizure-like activity, Denies tingling, Denies paresthesias, Denies tremor(s) and Denies weakness Psych Denies anxiety, Denies depression, Denies auditory hallucinations, Denies memory loss, Denies visual hallucinations and Denies suicidal ideation Endo Denies fatigue and Denies palpitations Physical Exam Const Other: General Appearance:? normal, in no acute distress. Skin:? no rashes, no significant birthmarks. Heart:? S1, S2 normal, no murmurs. Lungs:? clear anteriorly and posteriorly. Extremities:? no edema. Psych:? alert, oriented, cognitive function intact, cooperative with exam. Neuro Other: Mental Status:?Normal attention, orientation, memory and affect.? Cranial Nerves:?R pupil is round and reactive to light, left is prosthetic. External occular muscles are intact. Visual hodgson are full. Face is symmetrical. Facial sensations are normal. Tongue is midline. Palate elevates symmetrically. Shoulder shrugging is normal. Hearing to bedside conversation is normal. Sensory Exam:?....? Coordination:?No ataxia,?no titubation.? Gait Exam: Within normal limits. Cerebellar Signs:?[id number] is okay. Extrapyramidal System:?No tremor, rigidity with normal facial expressions.? Pronator Drift:?Not present.? Involuntary Movements:?No tremors seen.? Speech:?Normal.? Assessment & Plan Assessment & Plan (1) Migraine: Comment: Seen by Dr. Connell Code(s): G43.909 - Migraine, unspecified, not intractable, without status migrainosus Category: Medical Qualifiers: Migraine type: migraine (< 15 days per month) without aura Status migrainosus presence: without status migrainosus Intractability: not intractable Qualified Code(s): G43.009 - Migraine without aura, not intractable, without status migrainosus Plan: Continue sumatriptan 50mg 1 tablet as needed for migraine. Plan Meds tried: topiramate, verapamil, beta blockers contraindicated due to asthma Coding Level of Care Code Est Pt Level 3 (11771) Diagnoses Migraine without aura and without status migrainosus, not intractable G43.009 Migraine type: migraine (< 15 days per month) without aura Status migrainosus presence: without status migrainosus Intractability: not intractable
== END 2025-08-11 08:44 | disposition home or self-care (01) ==
LOC: HO.HSM 08:14
PROVIDERS: PCP Internal Medicine; Referring Provider Internal Medicine; Visit Provider Registered Nurse
DX: G43.009 Migraine without aura, not intractable, without status migrainosus (principal)
CPT/HCPCS: 99213

== ENCOUNTER → 2025-08-11 08:13 | Outpatient (BNVA) | payer OTHER, SELFPAY | PROVIDERS: PCP Internal Medicine; Referring Provider Internal Medicine; Visit Provider Registered Nurse | DX: G43.009 Migraine without aura, not intractable, without status migrainosus (principal); Z79.899 Other long term (current) drug therapy | CPT/HCPCS: 99212 ==

== ENCOUNTER 2025-08-12 08:08 | Outpatient (AMB) | payer OTHER, SELFPAY ==
[2025-08-12 08:10] VITALS: BP 144/80; BMI 35.2
--- NOTE | 2025-08-12 08:10 | A.OFFVIS_ITS ---
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 annual exam/45 mins Stock Repairer Required: No Allergies amoxicillin (AMOXICILLIN) Allergy (Severe, Verified 08/12/25 08:16) ANAPHYLAXIS, swelling Penicillins (PENICILLINS) Allergy (Severe, Verified 08/12/25 08:16) ANAPHYLAXIS polyethylene glycol 3350 (From MIRALAX) Allergy (Severe, Verified 08/12/25 08:16) ANAPHYLAXIS sulindac (SULINDAC) Allergy (Severe, Verified 08/12/25 08:16) SWELLING senna Allergy (Intermediate, Verified 08/12/25 08:16) Unknown seafood Allergy (Verified 08/12/25 08:16) Hives Medication List - Last Reconciled 08/12/25 by Julia Corrales LPN acetaminophen (Tylenol Extra Strength) 500 mg PO Q8H PRN 30 days albuterol sulfate 90 mcg/actuation 2 puffs inhalation Q6H PRN albuterol sulfate 2.5 mg (3 mL) inhalation Q6H PRN bisacodyl (Dulcolax (bisacodyl)) 5 mg PO BEDTIME PRN 30 days brimonidine 0.2% 1 drp ophthalmic-Right BID clonidine HCl 0.1 mg PO BID docusate sodium (Colace) 200 mg (2 x 100 mg) PO BEDTIME PRN dorzolamide-timolol (PF) 2-0.5 % 1 drp ophthalmic (eye) BID famotidine 40 mg PO DAILY hydrocortisone 1% 1 appl topical TID PRN 10 days labetalol 300 mg See Protocol PO TID 90 days latanoprost 0.005% 1 drp ophthalmic-Right BEDTIME loratadine 10 mg PO DAILY melatonin 5 mg PO BEDTIME multivitamin 1 tab PO DAILY nifedipine ER 60 mg See Protocol PO BID 90 days ondansetron 4 mg PO Q8H 30 days oxcarbazepine (Trileptal) 600 mg PO BID polyvinyl alcohol 1.4% (Artificial Tears (polyvinyl alcohol)) 1 drp ophthalmic (eye) BEDTIME PRN trazodone 300 mg PO BEDTIME Is last menstrual period known: Yes Last menstrual period: 08/02/25 Post menopausal: No Patient : No HPI Comments Details: Patient is a premenopausal woman presenting for annual examination, accompanied by her retirementhome health nurse licensed practical, Ria. Apprentice Embalmer concerns: none. History of renal failure, on monthly medication. Regular monthly menses. Currently is not sexually active. She denies vaginal itching or irritation. STI screening offered; she declines. She tries to eat healthy and stays active with exercise. Family history of breast cancer. Last pap smear 2024, negative. [facility] Medical History NSTEMI (non-ST elevated myocardial infarction) Possible exposure to STD Breast mass, right Morbid obesity with BMI of 40.0-44.9, adult Hypertension Annual visit for general adult medical examination with abnormal findings Heart murmur, systolic Breast pain Right Achilles tendinitis Erythema intertrigo External hemorrhoids Bleeding hemorrhoids Vitamin D deficiency Heel callus Mild intermittent asthma in adult without complication Ex-cigarette smoker Motion sickness Mild intellectual disability Porcelain gallbladder Migraine Depression with anxiety Dysmenorrhea 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 Brother No problems noted. Brother No problems noted. 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 Cognitive needs: No Hearing needs: No Vision needs: Yes Female Reproductive History Menstrual Age of Menarche: 13 Duration of menses: 3-5 days Date of last menstrual period: 08/02/25 control method: none Total pregnancies: 0 Date of last pap smear: 08/08/24 History of abnormal pap smear: No History of STI: No Date of Mammogram: 11/14/24 History of abnormal mammogram: No Review of Systems Const All systems reviewed & are unremarkable except as noted in HPI and below Reports as per HPI Eyes Reports no additional complaints ENT Reports no additional complaints Card Reports no additional complaints Resp Reports no additional complaints GI Reports as per HPI and Reports no additional complaints Reports as per HPI Musc Reports no additional complaints Skin/Breast Reports as per HPI Neuro Reports no additional complaints Psych Reports no additional complaints Endo Reports no additional complaints Jam/Lymph Reports no additional complaints Aller/Immun Reports no additional complaints Physical Exam Vital Signs: Last Vital Signs BP 144/80 H 08/12/25 08:10 BMI result Body Mass Index 35.2 Const General: cooperative, healthy appearing, no acute distress, well developed and alert Orientation/consciousness: patient oriented x3 HEENT Head: Yes normal to inspection Eyes General: appearance normal, both eyes and all related structures Neck Neck: Yes normal visual inspection Thyroid: Thyroid normal Chest Chest palpation & inspection: normal inspection of the chest and other (no puckering, dimpling, peau de orange, retraction, discharge, masses) Breast/axilla inspection: normal inspection of the breasts Breast/axilla palpation: normal palpation of the breasts Resp Effort & Inspection: normal respiratory effort GI Inspection: Yes normal to inspection Palpation (GI): Soft to palpation Rectal Exam - Female: deferred General: Yes bladder normal to palpation External Female Exam: normal external appearance and normal appearance of the urethra Speculum Exam - Vagina: normal appearance of the vagina, normal palpation and normal vaginal discharge Speculum Exam - Cervix: normal appearance of the cervix and normal palpation Bimanual exam- vagina & uterus: normal bimanual exam, normal palpation, uterine size normal, bladder normal to palpation, normal palpation and non-tender Bimanual Exam- Adnexa, other: no masses Skin General skin exam: no rashes or lesions noted Rashes: no rashes Neuro General: patient oriented x3 Cognition (Neuro): normal cognition Extrem General: Yes normal to inspection Psych Attitude: cooperative Thought process: Normal thought process present Assessment & Plan Assessment & Plan (1) Well woman exam with routine gynecological exam: Code(s): Z01.419 - Encounter for gynecological examination (general) (routine) without abnormal findings Category: Medical Plan Discussed: Current recommendations for pap smears per ASCCP guidelines. Breast awareness and periodic breast exams. Maintain a healthy lifestyle including a well balanced diet and routine exercise. Use condoms for STI and prevention. Patient verbalizes understanding and agrees to the plan of care. She was given opportunity to ask questions and all questions were answered to the best of my ability. RTO in one year for annual engineering faculty examination. This note is constructed using voice recognition software. While every effort has been made to ensure accuracy, field crops harvest machine operator errors may have been included. Coding Level of Care Code Est Pt Prev Care 18-39y(46888) Diagnoses Well woman exam with routine gynecological exam Z01.419
== END 2025-08-12 08:59 | disposition home or self-care (01) ==
LOC: HO.HWS 08:08
PROVIDERS: PCP Internal Medicine; Visit Provider Advanced Practice Midwife
DX: Z01.419 Encounter for gynecological examination (general) (routine) without abnormal findings (principal)
CPT/HCPCS: 99395; 99459

== ENCOUNTER → 2025-08-12 08:08 | Outpatient (BNVA) | payer OTHER, SELFPAY | PROVIDERS: PCP Internal Medicine; Visit Provider Advanced Practice Midwife | DX: Z01.419 Encounter for gynecological examination (general) (routine) without abnormal findings (principal) | CPT/HCPCS: 99395 ==

== ENCOUNTER 2025-09-03 15:01 | Outpatient (AMB) | payer OTHER, SELFPAY ==
--- NOTE | 2025-09-03 15:09 | MHC.PC.OV ---
Vital Signs 09/03/25 15:12 Height 5 ft 3 in Weight 203 lb BMI 36.0 BP 140/92 H Blood Pressure Location Lt brachial Position Sitting Respiration 16 Pulse 83 Pulse Source Pulse Oximeter Temp 98.1 F Temp Source Oral Pulse Oximetry (%) 98 Oxygen Delivery Method Room Air Intake Visit Reasons: PE Intake Note: Pt is here today for her PE Sr. Operations Manager Required: No Is last menstrual period known: Yes Last menstrual period: 08/29/25 Allergies amoxicillin (AMOXICILLIN) Allergy (Severe, Verified 09/03/25 15:24) ANAPHYLAXIS, swelling Penicillins (PENICILLINS) Allergy (Severe, Verified 09/03/25 15:24) ANAPHYLAXIS sulindac (SULINDAC) Allergy (Severe, Verified 09/03/25 15:24) SWELLING senna Allergy (Intermediate, Verified 09/03/25 15:24) Unknown seafood Allergy (Verified 09/03/25 15:24) Hives Medication List - Last Reconciled 09/03/25 by Mindy Hutchinson MD acetaminophen (Tylenol Extra Strength) 500 mg PO Q8H PRN 30 days albuterol sulfate 90 mcg/actuation 2 puffs inhalation Q6H PRN albuterol sulfate 2.5 mg (3 mL) inhalation Q6H PRN bisacodyl (Dulcolax (bisacodyl)) 5 mg PO BEDTIME PRN 30 days brimonidine 0.2% 1 drp ophthalmic-Right BID clonidine HCl 0.1 mg PO BID docusate sodium (Colace) 200 mg (2 x 100 mg) PO BEDTIME dorzolamide-timolol (PF) 2-0.5 % 1 drp ophthalmic (eye) BID erythromycin ophthalmic (eye) famotidine 40 mg PO DAILY hydrocortisone 1% 1 appl topical TID PRN 10 days labetalol 300 mg See Protocol PO TID 90 days latanoprost 0.005% 1 drp ophthalmic-Right BEDTIME loratadine 10 mg PO DAILY melatonin 5 mg PO BEDTIME multivitamin 1 tab PO DAILY nifedipine ER 60 mg See Protocol PO BID 90 days ondansetron 4 mg PO Q8H PRN oxcarbazepine (Trileptal) 600 mg PO BID polyvinyl alcohol 1.4% (Artificial Tears (polyvinyl alcohol)) 1 drp ophthalmic (eye) BEDTIME PRN sumatriptan succinate 50 mg PO ONCE PRN trazodone 300 mg PO BEDTIME Tobacco use date assessed: 09/03/25 Dental Screening Dental Screen Date: 09/03/25 Did you have a dental visit in the last 12 months?: Yes Did you have a dental problem in the last 6 months where you did not have access to dental care?: No Was dental information given to patient?: Patient has dentist HPI PE HPI Details 35-year-old female with pertinent medical history of mood disorder, gastroesophageal reflux disease, mild intellectual disability, hypertensio, thrombotic microangiopathy and atypical HUS, here today for her physical exam. She is currently followed by Nephrology who has her on [facility] Medical History NSTEMI (non-ST elevated myocardial infarction) Possible exposure to STD Breast mass, right Morbid obesity with BMI of 40.0-44.9, adult Hypertension Annual visit for general adult medical examination with abnormal findings Heart murmur, systolic Breast pain Right Achilles tendinitis Erythema intertrigo External hemorrhoids Bleeding hemorrhoids Vitamin D deficiency Heel callus Mild intermittent asthma in adult without complication Ex-cigarette smoker Motion sickness Mild intellectual disability Porcelain gallbladder Migraine Depression with anxiety Dysmenorrhea 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 Brother No problems noted. Brother No problems noted. 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 1. Little interest or pleasure in doing things: not at all 2. Feeling down, depressed, or hopeless: not at all 3. Trouble falling or staying asleep, or sleeping too much: not at all 4. Feeling tired or having little energy: not at all 5. Poor appetite or overeating: not at all 6. Feeling bad about yourself - or that you are a failure or have let yourself or your family down: not at all 7. Trouble concentrating on things, such as reading the newspaper or watching television: not at all 8. Moving or speaking so slowly that other people could have noticed. Or the opposite - being so fidgety or restless that you have been moving around a lot more than usual: not at all 9. Thoughts that you would be better off or of hurting yourself in some way: not at all Total score: 0 Source: Developed by Drs. Jett Oneal, Felisa River, Raudel Correa and colleagues, with an educational geraldine from [employer]. Thrive Questionnaire Date Thrive assessed: 12/09/24 I am a: Patient What is your living situation today?: I have a steady place to live Within the past 12 months, did the food you bought not last and you didn't have the money to get more?: Often true Within the past 12 months, did you worry whether your food would run out before you got money to buy more?: Often true Do you have trouble paying for medicines?: No Do you have trouble getting transportation to medical appointments?: No Do you have trouble paying your heating and electricity bill?: No Do you have trouble taking care of your child, family member or friend?: No Do you have trouble with day-to-day activities such as bathing, preparing meals, shopping, managing finances, etc.?: No Are you currently unemployed and looking for a job?: No Are you interested in more education?: Yes Please select the resources that you would like help with: Education Currently or been in a relationship where the following occur: No concerns reported THRIVE Score: 2 AUDIT C Alcohol Use Questionnaire (AUDIT-C) 1. How often do you have a drink containing alcohol?: 4 or more times a week 2. How many drinks containing alcohol do you have on a typical day when you are drinking?: 1 or 2 3. How often do you have six or more drinks on one occasion?: Never Total Score: 4 LEYDA-7 AMB Questionnaire LEYDA-7 Date LEYDA - 7 assessed: 10/25/24 Feeling nervous, anxious, or on edge: 0 = Not at all Not being able to stop or control worryin = Not at all Worrying too much about different things: 0 = Not at all Trouble relaxin = Not at all Being so restless that it is hard to sit still: 0 = Not at all Becoming easily annoyed or irritable: 1 = Several days Feeling afraid as if something awful might happen: 0 = Not at all Total LEYDA-7 score (0-4 normal; 5-9 mild; 10-14 moderate; 15-21 severe): 1 Source: Developed by Drs. Jett Oneal, Felisa River, Raudel Correa and colleagues, with an educational geraldine from [employer]. Review of Systems Const Details: Goes to [facility] and [facility], artificial eye OS Eyes Details: Goes to [facility] in [place] Physical exam (Primary Care) Vital Signs: Last Vital Signs Temp 98.1 F 09/03/25 15:12 Pulse 83 09/03/25 15:12 Resp 16 09/03/25 15:12 BP 140/92 H 09/03/25 15:12 Pulse Ox 98 09/03/25 15:12 Oxygen Delivery Method Room Air 09/03/25 15:12 BMI result Body Mass Index 36.0 Tobacco/Smoking Status: Tobacco use Status Tobacco use date assessed 09/03/25 09/03/25 15:10 Patient Tobacco Use Status Never used Tobacco 09/03/25 15:10 Tobacco use type Cigarette 09/03/25 15:10 e-Cigarette/Vaping Use Never Used 09/03/25 15:10 PHQ-9: PHQ-9 Score PHQ-9: Total score 0 09/03/25 15:32 Thrive Assessment: Date of Thrive Assessment Date Thrive assessed 12/09/24 09/03/25 15:10 Currently or been in a relationship where the following occur: No concerns reported Office Procedures Flu Questionnaire Does the patient have a severe egg allergy?: No Does the patient have severe life threatening allergies?: No Does the patient have a fever or illness today?: No Has the patient ever had Guillain-[place] Syndrome?: No Has the patient ever had any past reaction to a flu shot?: No Immunizations Fluarix [id number] (PF) 45 mcg (15 mcg x 3)/0.5 mL IM syringe Performing Provider: Mindy Hutchinson MD Performing Location: [facility] Adult Primary [facility] Administered by: Dior Shah CMA on 09/03/25 16:31 Dose Route Admin Location Dispensed Lot Number Expiration Date [facility] Certified Scrum Master 0.5 mL IM Left Deltoid 0.5 mL [id number] 03/31/26 [id number] [employer] VIS Given Date VIS Provided VIS Publication Date 09/03/25 Single Vaccine 24 Eligibility Eligibility Date Funding Source Not [facility] Eligible 09/03/25 Private Coding Level of Care Code Est Pt Prev Care 18-39y(86129) Assessment & Plan Assessment & Plan Orders: Orders Lipid Panel Today Z13.220 - Encounter for screening for lipoid disorders Influenza [id number] Immunization Today Z23 - Encounter for immunization Medications: New Cetaphil (cetyl,stear.alcoh-prop gly-sls) 1 appl topical BID 454 grams 3RF NS
[2025-09-03 15:12] VITALS: BP 140/92; PULSE 83; RESP 16; TEMP 36.7; O2SAT 98; BMI 36.0
== END 2025-09-03 16:18 | disposition home or self-care (01) ==
LOC: HO.HMCC 15:02
PROVIDERS: PCP Internal Medicine; Visit Provider Internal Medicine
DX: Z23 Encounter for immunization (principal)

== ENCOUNTER → 2025-09-03 15:01 | Outpatient (BNVA) | payer OTHER, SELFPAY | PROVIDERS: PCP Internal Medicine; Visit Provider Internal Medicine | DX: Z00.01 Encounter for general adult medical examination with abnormal findings (principal); Z23 Encounter for immunization; J45.20 Mild intermittent asthma, uncomplicated; I12.9 Hypertensive chronic kidney disease with stage 1 through stage 4 chronic kidney disease, or unspecified chronic kidney disease; N18.4 Chronic kidney disease, stage 4 (severe); G43.009 Migraine without aura, not intractable, without status migrainosus; E66.01 Morbid (severe) obesity due to excess calories; F41.8 Other specified anxiety disorders; L85.3 Xerosis cutis; Z68.36 Body mass index [BMI] 36.0-36.9, adult | CPT/HCPCS: 90471; 90656; 96127; 96160; 99395 ==

== ENCOUNTER 2025-09-26 15:34 | Outpatient (AMB) | payer OTHER, SELFPAY ==
[2025-09-26 15:31] VITALS: BP 140/90; PULSE 87; O2SAT 98; BMI 35.2
--- NOTE | 2025-09-26 15:31 | HO.NEPHOV_ITS ---
Vital Signs 09/26/25 15:31 Height 5 ft 3 in Weight 199 lb BMI 35.2 BP 140/90 H Blood Pressure Location Lt brachial Position Sitting Pulse 87 Pulse Source Pulse Oximeter Pulse Oximetry (%) 98 Oxygen Delivery Method Room Air Intake Visit Reasons: 2 mo f/u w/ labs-Conf w/Ria Peanut Sheller Required: No Accompanied by: Care Provider Allergies amoxicillin (AMOXICILLIN) Allergy (Severe, Verified 09/26/25 15:33) ANAPHYLAXIS, swelling Penicillins (PENICILLINS) Allergy (Severe, Verified 09/26/25 15:33) ANAPHYLAXIS sulindac (SULINDAC) Allergy (Severe, Verified 09/26/25 15:33) SWELLING senna Allergy (Intermediate, Verified 09/26/25 15:33) Unknown seafood Allergy (Verified 09/26/25 15:33) Hives HPI Comments Details: 35-year-old female with pertinent history of mood disorder, gastroesophageal reflux disease, mild intellectual disability, hypertension initially presented to the emergency department for evaluation of nausea and vomiting. She had been having nausea and multiple episodes of nonbloody emesis throughout the day prior to presentation. She also has been having abdominal discomfort at that time which is generalized, constant, not related to food intake, nonradiating, nonprogressive and without any relieving factors. Patient had not been taking her p.o. antihypertensives for the last few days. She had reduced p.o. intake as she is unable to hold anything down due to nausea and vomiting. She denied fever, chills or diarrhea. She has no palpitation, shortness of breath, changes in urinary habits. She has no history of diabetes mellitus, palpitation, orthostasis. Her renal function had been getting worse and now has been having worsening proteinuria. She denied using drugs other than Marijuana. She does not takes nonsteroidal anti-inflammatories regularly. 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 Her mental status was at baseline. She was transferred to [facility] for PLEX/Eculizimab. 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 She had acute hypoxic respiratory failure in hospital with worsening renal function. She responded well to diuresis. She had elevated LDH, thrombocytopenia, decreased haptoglobin with schistocytes on peripheral smear. A DAMTS 13 was negative. Had her femoral HD catheter removed on 01/10/2025. Did not have any renal biopsy. She had steroids and was started on Eculizumab 900 mg weekly for 4 weeks ( 01/06/25, 01/13/25, 01/20/25 and 4th dose given this week). Received meningococcal vaccination and was started on Azithromycin 500 mg daily for 2 weeks ( penicillin allergy) while on eculizumab. She continues to have goo d urine output. Her GFR has improved. She has no edema or any other symptoms other than nausea at times. Her appetite is good and denies any SOB, PND, orthopnea or any uremic symptoms. She had hypertensive emergency during hospital stay which improved with medications. She has been having difficulties in blood draws and medication administration due to poor veins and had a port a cath inserted but is awaiting a revision due to issues with it .Her renal functions has been improving & remained on eculzimab but due to insurance issues from it and was switched to Ravulizumab [facility] Medical History (Updated 09/26/25 @ 15:33 by Lincoln Willson MD) Annual visit for general adult medical examination with abnormal findings NSTEMI (non-ST elevated myocardial infarction) Morbid obesity with BMI of 40.0-44.9, adult Hypertension Heart murmur, systolic Right Achilles tendinitis Erythema intertrigo External hemorrhoids Vitamin D deficiency Heel callus Mild intermittent asthma in adult without complication Ex-cigarette smoker Motion sickness Mild intellectual disability Porcelain gallbladder Migraine Depression with anxiety Prosthetic eye globe Surgical History S/P laparoscopic cholecystectomy History of cholecystectomy History of benign neoplasm of breast History of eye surgery Family History Mother Hypertension Father No problems noted. Brother No problems noted. Brother No problems noted. 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 Cognitive needs: No Hearing needs: No Vision needs: Yes Female Reproductive History Menstrual Age of Menarche: 13 Review of Systems Const All systems reviewed & are unremarkable except as noted in HPI and below Physical Exam Vital Signs: Last Vital Signs Pulse 87 09/26/25 15:31 BP 140/90 H 09/26/25 15:31 Pulse Ox 98 09/26/25 15:31 Oxygen Delivery Method Room Air 09/26/25 15:31 BMI result Body Mass Index 35.2 Const General: comfortable and no acute distress Orientation/consciousness: patient oriented x3 HEENT Head: Yes normocephalic Mouth: Normal oral and palatal mucosa present Eyes EOM: EOMs intact bilaterally Neck Neck: Yes supple Resp Auscultation: clear to auscultation bilaterally Cardio Jugular venous distension: no JVD Rate: regular rate Heart sounds: Murmur heart sound present GI Palpation (GI): Soft to palpation Auscultation: normal bowel sounds General: Yes no CVA tenderness Back/Spine/Pelvis Back: no CVA tenderness Skin General skin exam: no rashes or lesions noted Neuro General: patient oriented x3 and moves all extremities Extrem General: Yes no pedal edema Results Reviewed Nephrology Results: Hgb, (12.0-16.0) 10.7 g/dl L 09/04/25 WBC, (4.8-10.8) 5.0 X10*3/uL 09/04/25 Plt Count, (160-400) 174 X10*3/uL 09/04/25 Sodium, (135-145) 141 mmol/L 09/04/25 Potassium, (3.3-5.1) 3.6 mmol/L 09/04/25 Chloride, (96-108) 109 mmol/L H 09/04/25 Carbon Dioxide, (22-29) 25 mmol/L 09/04/25 BUN, (9-16) 18 mg/dL H 09/04/25 Creatinine, (0.5-1.4) 2.34 mg/dL H 09/04/25 Calcium, (8.4-10.2) 8.6 mg/dL 09/04/25 Phosphorus, (2.7-4.5) 2.9 mg/dL 07/09/25 Urine Protein, (Neg-Trace) 300 (3+) mg/dL H 07/18/25 Urine Creatinine 59.56 mg/dL 04/03/25 Protein/Creatinin Ratio, (<0.2) 1.34 H 04/03/25 Renal US 12/27/24 Assessment & Plan Assessment & Plan (1) Hypertension: Code(s): I10 - Essential (primary) hypertension Category: Medical Qualifiers: Hypertension type: primary hypertension Qualified Code(s): I10 - Essential (primary) hypertension (2) Stage 3b chronic kidney disease: Code(s): N18.32 - Chronic kidney disease, stage 3b Category: Medical Plan She had H/O worsening of renal function with drop in her platelet count 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 She had acute hypoxic respiratory failure in hospital with worsening renal function. She responded well to diuresis. She had elevated LDH, thrombocytopenia, decreased haptoglobin with schistocytes on peripheral smear. ADAMTS 13 was negative. Had her femoral HD catheter removed on 01/10/2025. Did not have any renal biopsy. She had steroids and was started on Eculizumab 900 mg weekly for 4 weeks ( 01/06/25, 01/13/25, 01/20/25 and 4th dose was given this week). Received meningococcal vaccination and was started on Azithromycin 500 mg daily for 2 weeks ( penicillin allergy) while on eculizumab. She continues to have good urine output. Her GFR is improving. She has no edema. Her appetite is good and denies any SOB, PND, orthopnea or any uremic symptoms. She has H/O hypertensive emergency but the BP is at goal now. She has [place] getting [place] [facility] [place] 2 [place] but had insurance coverage issues and was transitioned to Ravulizumab, first dose being 2700 mg . After 2 weeks she was given 3300 mg and following which maintenance will be every 8 weeks @ 3300 mg. ( Next infusion Dec )Follow up labs ordered & F/U appointment given Orders: Orders Complete Blood Count Auto Diff 2 Months I10 - Essential (primary) hypertension, N18.32 - Chronic kidney disease, stage 3b Creatinine 2 Months I10 - Essential (primary) hypertension, N18.32 - Chronic kidney disease, stage 3b Electrolytes 2 Months I10 - Essential (primary) hypertension, N18.32 - Chronic kidney disease, stage 3b Lactate Dehydrogenase 2 Months I10 - Essential (primary) hypertension, N18.32 - Chronic kidney disease, stage 3b Complement C3 2 Months I10 - Essential (primary) hypertension, N18.32 - Chronic kidney disease, stage 3b Complement C4 2 Months I10 - Essential (primary) hypertension, N18.32 - Chronic kidney disease, stage 3b Blood Urea Nitrogen 2 Months I10 - Essential (primary) hypertension, N18.32 - Chronic kidney disease, stage 3b Coding Level of Care Code Est Pt Level 4 (45906) Diagnoses Primary hypertension I10 Hypertension type: primary hypertension Stage 3b chronic kidney disease N18.32
== END 2025-09-26 15:50 | disposition home or self-care (01) ==
LOC: HO.HKA 15:35
PROVIDERS: PCP Internal Medicine; Visit Provider Internal Medicine Nephrology
DX: I10 Essential (primary) hypertension (principal); N18.32 Chronic kidney disease, stage 3b
CPT/HCPCS: 99214

== ENCOUNTER → 2025-09-26 15:34 | Outpatient (BNVA) | payer OTHER, SELFPAY | PROVIDERS: PCP Internal Medicine; Visit Provider Internal Medicine Nephrology | DX: I12.9 Hypertensive chronic kidney disease with stage 1 through stage 4 chronic kidney disease, or unspecified chronic kidney disease (principal); N18.32 Chronic kidney disease, stage 3b | CPT/HCPCS: 99212 ==